=== PATIENT | female | born 1955 | race Caucasian/White ===

== ENCOUNTER → 2020-10-01 12:29 | Outpatient (BNVA) | payer MEDICARE, SELFPAY | PROVIDERS: PCP Internal Medicine; Visit Provider Internal Medicine | DX: I48.0 Paroxysmal atrial fibrillation (principal); E78.5 Hyperlipidemia, unspecified; Z51.81 Encounter for therapeutic drug level monitoring; Z79.899 Other long term (current) drug therapy | CPT/HCPCS: 93005; 99212 ==

== ENCOUNTER → 2020-12-16 14:04 | Outpatient (BNVA) | payer MEDICARE, SELFPAY | PROVIDERS: PCP Internal Medicine; Referring Provider Internal Medicine; Visit Provider Nurse Practitioner Family | DX: R07.89 Other chest pain (principal); R94.31 Abnormal electrocardiogram [ECG] [EKG]; I48.0 Paroxysmal atrial fibrillation; Z51.81 Encounter for therapeutic drug level monitoring; Z79.899 Other long term (current) drug therapy | CPT/HCPCS: 93005; 99212 ==

== ENCOUNTER 2021-01-31 10:08 | Observation (INO) | payer MEDICARE, SELFPAY ==
--- NOTE | ~2021-01-31 | XR_ITS ---
EXAMINATION: XR CHEST CLINICAL INFORMATION: Chest pain. COMPARISON: 02/24/2014. TECHNIQUE: Frontal view of the chest was obtained. FINDINGS: Mild linear markings and opacification are seen at the left lung base with minimal blunting of the left costophrenic angle. The left upper lung field and right lung are clear. The heart and mediastinal structures are unremarkable. XR/XR chest 1V IMPRESSION: Possible mild left basilar atelectasis and/or very small left pleural effusion.
--- NOTE | 2021-01-31 10:13 | ECG_ITS ---
Test Reason : CP Blood Pressure : / mmHG Vent. Rate : 068 BPM Atrial Rate : 068 BPM P-R Int : 148 ms QRS Dur : 092 ms QT Int : 422 ms P-R-T Axes : 044 234 039 degrees QTc Int : 448 ms Normal sinus rhythm Right superior axis deviation Pulmonary disease pattern Low voltage QRS Poor R wave progression Abnormal ECG Heart rate has increased T wave inversion more evident in Anteroseptal leads Referred By: Josue Robles Electronically Signed By:MINDI RANDLE MD
[2021-01-31 10:19] VITALS: BP 147/80; BP 202/164; PULSE 60; PULSE 69; RESP 18; TEMP 36.8; O2SAT 93; O2SAT 96; BMI 32.8
--- NOTE | 2021-01-31 10:27 | ED.CHESTPAIN ---
HPI - Chest Pain General Chief Complaint: Chest Pain Stated Complaint: chest pain radiating to left arm/neck Time Seen by Provider: 01/31/21 10:13 History of Present Illness HPI narrative: Patient is a 65-year-old female with a history of paroxysmal AFib. Currently not on any anticoagulation. Presents today with having chest pain that started approximately 1 hour prior. Positive chest pain that is a tightness radiating to the neck. Positive shortness of breath no diaphoresis. The pain subsided after some nitroglycerin. Patient was given aspirin on the ambulance. No fever no chills minimal coughing. Patient is vaccinated for COVID. Positive history of hypertension high cholesterol. Question history of [place]. No history of smoking. No family history of CAD. Related Data Home Medications Medication Instructions Recorded Confirmed aspirin 81 mg tablet,delayed 81 mg PO DAILY 10/01/20 01/31/21 release citalopram 40 mg tablet 40 mg PO DAILY 10/01/20 01/31/21 docusate sodium 100 mg capsule 100 mg PO DAILY 10/01/20 01/31/21 lamotrigine 100 mg tablet 250 mg PO BEDTIME 10/01/20 01/31/21 latanoprost 0.005 % eye drops 1 drp OPHTHALMIC (EYE) BEDTIME 10/01/20 01/31/21 naproxen 500 mg tablet 500 mg PO BEDTIME 10/01/20 01/31/21 trazodone 100 mg tablet 100 - 200 mg PO BEDTIME PRN 10/01/20 01/31/21 hydroxyzine HCl 25 mg tablet 12.5 - 25 mg PO DAILY PRN 12/16/20 01/31/21 Previous Rx's Medication Instructions Recorded flecainide 100 mg tablet 100 mg PO BID #180 tab 10/01/20 atorvastatin 80 mg tablet 80 mg PO DAILY 90 Days #90 tab 11/06/20 Allergies Allergy/AdvReac Type Severity Reaction Status Date / Time oxycodone [From PERCODAN] Allergy Intermediate HIVES Verified 01/31/21 10:19 Hydrocodone-Acetaminophen AdvReac Unknown nausea and Uncoded 10/01/20 12:36 vomiting Review of Systems Review of Systems: Positive chest pain Positive coughing congested No vomiting Positive shortness of breath Yes all other systems are reviewed and are negative PMFSH Past Medical History Medical History PAF (paroxysmal atrial fibrillation) Surgical History History of knee surgery Family History Family History Father Myocardial infarction CVD (cardiovascular disease) Mother No problems noted. Social History Social History Alcohol intake: current Alcohol intake frequency: a few times a month Patient Tobacco Use Status: Never used Tobacco Use of substances other than those prescribed or required for medical reasons: No Advance Directives: No Advance Directives Information Provided: No Patient : No Physical Exam Vital Signs: Vital Signs: Last Vital Signs Temp 98.3 F 01/31/21 13:29 Pulse 66 01/31/21 13:29 Resp 18 01/31/21 13:29 BP 132/78 01/31/21 13:29 Pulse Ox 96 01/31/21 13:29 Body Mass Index 32.8 Appearance: Alert. Oriented X3. No acute distress. Eyes: Pupils equal, round and reactive to light. ENT: Pharynx normal. Neck: Normal inspection. Neck supple. No lymph nodes noted. No crepitus CVS: Normal heart rate and rhythm. Pulses normal. Normal S1 and S2 Respiratory: No respiratory distress. Breath sounds normal. No Wheezing. No rales Abdomen: Soft and nontender. No rigidity. No distention. good BS x4 Skin: Skin warm and dry. Normal skin color. Normal skin turgor. Extremities: No lower extremity edema. Neurovascular intact to all extremities. No Lacerations. No Rash Neuro: Oriented X 3. No motor deficit. No sensory deficit. Moving all extermities. No slurred speech MDM - Chest Pain MDM Narrative Medical decision making narrative: Sinus pattern heart rate is 70 TN QRS QT within normal limits there is nonspecific T-wave flattening diffusely noted. Positive chest pain resolved with nitroglycerin 2 sets of cardiac enzymes were negative. Patient's case discussed with cardiology. Will admit for further observation. Patient did have a echo done last year which was grossly negative for any acute evidence of wall motion defect. Perfusion study was negative at that time. However given patient's chest pain resolved with nitroglycerin associated with shortness of breath will admit for observation overnight. Case discussed with hospitalist and also with Cardiology Lab Data Result diagrams: 01/31/21 10:47 01/31/21 10:47 Labs: Lab Results 01/31/21 01/31/21 01/31/21 Range/Units 10:47 10:47 10:47 WBC 4.6 L (4.8-10.8) X10*3/uL RBC 4.30 (4.20-5.50) X10*6/uL Hgb 13.7 (12.0-16.0) g/dl Hct 41.1 (37.0-47.0) % MCV 95.6 (80.0-98.0) fL MCH 31.9 (27.0-33.0) pg MCHC 33.3 (31.0-35.0) g/dl RDW 12.7 (11.0-16.0) % Plt Count 183 (160-400) X10*3/uL MPV 9.4 (9.4-12.3) fL Immature Gran % (Auto) 0.2 (0.0-0.4) % Neut % (Auto) 67.2 (45-73) % Lymph % (Auto) 20.6 (20-40) % Lipscomb % (Auto) 5.6 (2-11) % Eos % (Auto) 5.8 H (0-4) % Baso % (Auto) 0.6 (0-2) % Lymph # (Auto) 1.0 L (1.2-4.9) X10*3/uL Lipscomb # (Auto) 0.3 (0.1-1.2) X10*3/uL Eos # (Auto) 0.3 (0.0-0.4) X10*3/uL Baso # (Auto) 0.0 (0.0-0.2) X10*3/uL Abs Immat Gran (auto) 0.01 (0.00-0.03) X10*3/uL Absolute Neuts (auto) 3.1 (2.0-8.3) x10*3/uL Absolute Nucleated RBC 0.000 (0.0-0.012) X10*3/uL Nucleated RBC % (auto) 0.0 (0.0-0.2) /100WBC Sodium 143 (135-145) mmol/L Potassium 3.9 (3.3-5.1) mmol/L Chloride 105 (96-108) mmol/L Carbon Dioxide 31 H (22-29) mmol/L Anion Gap 11 L (12-20) BUN 11 (9-16) mg/dL Creatinine 0.77 (0.5-1.4) mg/dL Estim Creat Clear Calc 90.2 Estimated GFR > 60 Random Glucose 131 H (60-115) mg/dL Calcium 9.4 (8.4-10.2) mg/dL Total Bilirubin 0.4 (0.0-1.0) mg/dL AST 24 (5-31) U/L ALT 37 H (0-31) U/L Alkaline Phosphatase 90 (39-117) U/L Troponin I High Sens < 3.5 (<3.5-17.0) ng/L Total Protein 6.8 (6.5-8.0) g/dL Albumin 4.1 (3.5-5.0) g/dL COVID-19 (RENAN) (Negative) COVID-19 Clin Com 01/31/21 01/31/21 Range/Units 10:47 12:44 WBC (4.8-10.8) X10*3/uL RBC (4.20-5.50) X10*6/uL Hgb (12.0-16.0) g/dl Hct (37.0-47.0) % MCV (80.0-98.0) fL MCH (27.0-33.0) pg MCHC (31.0-35.0) g/dl RDW (11.0-16.0) % Plt Count (160-400) X10*3/uL MPV (9.4-12.3) fL Immature Gran % (Auto) (0.0-0.4) % Neut % (Auto) (45-73) % Lymph % (Auto) (20-40) % Lipscomb % (Auto) (2-11) % Eos % (Auto) (0-4) % Baso % (Auto) (0-2) % Lymph # (Auto) (1.2-4.9) X10*3/uL Lipscomb # (Auto) (0.1-1.2) X10*3/uL Eos # (Auto) (0.0-0.4) X10*3/uL Baso # (Auto) (0.0-0.2) X10*3/uL Abs Immat Gran (auto) (0.00-0.03) X10*3/uL Absolute Neuts (auto) (2.0-8.3) x10*3/uL Absolute Nucleated RBC (0.0-0.012) X10*3/uL Nucleated RBC % (auto) (0.0-0.2) /100WBC Sodium (135-145) mmol/L Potassium (3.3-5.1) mmol/L Chloride (96-108) mmol/L Carbon Dioxide (22-29) mmol/L Anion Gap (12-20) BUN (9-16) mg/dL Creatinine (0.5-1.4) mg/dL Estim Creat Clear Calc Estimated GFR Random Glucose (60-115) mg/dL Calcium (8.4-10.2) mg/dL Total Bilirubin (0.0-1.0) mg/dL AST (5-31) U/L ALT (0-31) U/L Alkaline Phosphatase (39-117) U/L Troponin I High Sens < 3.5 (<3.5-17.0) ng/L Total Protein (6.5-8.0) g/dL Albumin (3.5-5.0) g/dL COVID-19 (RENAN) Negative (Negative) COVID-19 Clin Com See Note Discharge Plan Discharge Clinical Impression: Chest discomfort, Chest pain Patient Disposition: Admitted As Inpatient Prescriptions: No Action atorvastatin 80 mg tablet 80 mg PO DAILY 90 Days Qty: 90 RF: 3 citalopram 40 mg tablet 40 mg PO DAILY RF: 0 lamotrigine 100 mg tablet 250 mg PO BEDTIME RF: 0 docusate sodium 100 mg capsule 100 mg PO DAILY RF: 0 naproxen 500 mg tablet 500 mg PO BEDTIME RF: 0 latanoprost 0.005 % drops 1 drp ophthalmic (eye) BEDTIME RF: 0 trazodone 100 mg tablet 100 - 200 mg PO BEDTIME PRN (Reason: Sleep) RF: 0 aspirin 81 mg tablet,delayed release (DR/EC) 81 mg PO DAILY RF: 0 flecainide 100 mg tablet 100 mg PO BID Qty: 180 RF: 4 hydroxyzine HCl 25 mg tablet 12.5 - 25 mg PO DAILY PRN (Reason: Anxiety) RF: 0
[2021-01-31 10:52] LABS: MANUAL DIFF FLAG NO
[2021-01-31 10:57] LABS: Basophils Percent Auto 0.6 % (0-2); Eosinophils Absolute Auto 0.3 X10*3/uL (0.0-0.4); Eosinophils Percent Auto 5.8 % (0-4); Hematocrit 41.1 % (37.0-47.0); Hemoglobin 13.7 g/dl (12.0-16.0); Imm Gran Abs Auto 0.01 X10*3/uL (0.00-0.03); Imm Gran Pct Auto 0.2 % (0.0-0.4); Lymphocytes Percent Auto 20.6 % (20-40); Mean Corpuscular HGB Conc 33.3 g/dl (31.0-35.0); Mean Corpuscular Hemoglobin 31.9 pg (27.0-33.0); Mean Corpuscular Volume 95.6 fL (80.0-98.0); Mean Platelet Volume 9.4 fL (9.4-12.3); Monocytes Absolute Auto 0.3 X10*3/uL (0.1-1.2); Monocytes Percent Auto 5.6 % (2-11); Neutrophils Absolute Auto 3.1 x10*3/uL (2.0-8.3); Neutrophils Percent Auto 67.2 % (45-73); Platelet Count 183 X10*3/uL (160-400); Red Cell Distribution Width 12.7 % (11.0-16.0); White Blood Count 4.6 X10*3/uL (4.8-10.8)
[2021-01-31 11:08] LABS: COVID-19 Test Negative (Negative)
[2021-01-31 11:13] LABS: Troponin-I High Sensitivity < 3.5 ng/L (<3.5-17.0)
[2021-01-31 11:18] LABS: Alanine Aminotransferase 37 U/L (0-31); Albumin Level 4.1 g/dL (3.5-5.0); Alkaline Phosphatase 90 U/L (39-117); Anion Gap 11 (12-20); Aspartate Amino Transferase 24 U/L (5-31); Bilirubin Total 0.4 mg/dL (0.0-1.0); Blood Urea Nitrogen 11 mg/dL (9-16); Calcium 9.4 mg/dL (8.4-10.2); Carbon Dioxide 31 mmol/L (22-29); Chloride 105 mmol/L (96-108); Creatinine Clr Calc Pharmacy 90.2; Estimated Glomerular Filt Rate > 60; Glucose Random 131 mg/dL (60-115); Potassium 3.9 mmol/L (3.3-5.1); Sodium 143 mmol/L (135-145); Total Protein 6.8 g/dL (6.5-8.0)
--- NOTE | 2021-01-31 11:21 | PC.NURSE ---
Pt remains NSR on monitor. Denies CP at this time. Ambulatory to BR w/o difficulty/dizzziness/SOB. aware of need for repeat troponin
[2021-01-31 11:22] VITALS: BP 131/77; PULSE 68; RESP 16; O2SAT 97
[2021-01-31 13:24] LABS: Troponin-I High Sensitivity < 3.5 ng/L (<3.5-17.0)
[2021-01-31 13:29] VITALS: BP 132/78; PULSE 66; RESP 18; TEMP 36.8; O2SAT 96
--- NOTE | 2021-01-31 15:12 | PM.IMHP ---
History of Present Illness Date of Service: 01/31/21 65-year-old female with history of paroxysmal atrial fibrillation presents after 1 hour of retrosternal chest pain. She had mild shortness of breath accompanied by this but no diaphoresis. She was given some nitroglycerin that relieved her pain and ambulance aspirin. Initial 2 troponins are negative however she will be admitted observation with cardiac consult in the morning Review of Systems Review of Systems: Currently denies chest pain Denies shortness of breath Denies nausea vomiting diarrhea PMFSH Medical History PAF (paroxysmal atrial fibrillation) Family History Father Myocardial infarction CVD (cardiovascular disease) Mother No problems noted. Surgical History History of knee surgery Social History Alcohol intake: current Alcohol intake frequency: a few times a month Patient Tobacco Use Status: Never used Tobacco Use of substances other than those prescribed or required for medical reasons: No Advance Directives: No Advance Directives Information Provided: No Patient : No Meds Allergies Allergy/AdvReac Type Severity Reaction Status Date / Time oxycodone [From PERCODAN] Allergy Intermediate HIVES Verified 01/31/21 10:19 Hydrocodone-Acetaminophen AdvReac Unknown nausea and Uncoded 10/01/20 12:36 vomiting Active Medications: Current Medications Aspirin (Aspirin Enteric Coated 81 Mg Tablet.Dr) 81 mg PO DAILY COUNTS INCLUDE 234 BEDS AT THE [facility] Atorvastatin Calcium (Atorvastatin Calcium 80 Mg Tablet) 80 mg PO DAILY COUNTS INCLUDE 234 BEDS AT THE [facility] Docusate Sodium (Docusate Sodium 100 Mg Capsule) 100 mg PO DAILY COUNTS INCLUDE 234 BEDS AT THE [facility] Hydroxyzine HCl (Hydroxyzine Hcl 25 Mg Tablet) 12.5 - 25 mg PO DAILY PRN PRN Reason: Anxiety Lamotrigine (Lamotrigine 25 Mg Tablet) 250 mg PO BEDTIME COUNTS INCLUDE 234 BEDS AT THE [facility] Latanoprost (Latanoprost 0.005 % Ophth Milvia 2.5 Ml Drops) 1 drop EYE-BOTH BEDTIME COUNTS INCLUDE 234 BEDS AT THE [facility] Naproxen (Naproxen 500 Mg Tablet) 500 mg PO BEDTIME COUNTS INCLUDE 234 BEDS AT THE [facility] Non-Formulary Medication (Citalopram) 40 mg PO DAILY COUNTS INCLUDE 234 BEDS AT THE [facility] Non-Formulary Medication (Flecainide) 100 mg PO BID COUNTS INCLUDE 234 BEDS AT THE [facility] Pharmacy Consult (Consult Rx Perform Med Rec) 1 each MISCELLANE ONCE PRN PRN Reason: Consult order Trazodone HCl (Trazodone Hcl 100 Mg Tablet) 100 mg PO BEDTIME PRN PRN Reason: Sleep Home Medications Medication Instructions Recorded Confirmed Last Taken Type aspirin 81 mg tablet,delayed 81 mg PO DAILY 10/01/20 01/31/21 01/30/21 History release citalopram 40 mg tablet 40 mg PO DAILY 10/01/20 01/31/21 01/30/21 History docusate sodium 100 mg capsule 100 mg PO DAILY 10/01/20 01/31/21 01/30/21 History lamotrigine 100 mg tablet 250 mg PO BEDTIME 10/01/20 01/31/21 01/30/21 History latanoprost 0.005 % eye drops 1 drp OPHTHALMIC (EYE) BEDTIME 10/01/20 01/31/21 01/30/21 History naproxen 500 mg tablet 500 mg PO BEDTIME 10/01/20 01/31/21 01/30/21 History trazodone 100 mg tablet 100 - 200 mg PO BEDTIME PRN 10/01/20 01/31/21 01/30/21 History hydroxyzine HCl 25 mg tablet 12.5 - 25 mg PO DAILY PRN 12/16/20 01/31/21 01/30/21 History Physical Exam Vital Signs and Narrative: Vital Signs: Last Vital Signs Temp 98.3 F 01/31/21 13:29 Pulse 66 01/31/21 13:29 Resp 18 01/31/21 13:29 BP 132/78 01/31/21 13:29 Pulse Ox 96 01/31/21 13:29 Body Mass Index 32.8 Const: Other: Awake alert oriented x3 no acute distress Resp: Other: Clear to auscultation bilaterally no rales rhonchi or wheezes Cardio: Other: No S4; positive S1-S2; no S3 murmurs of gallops GI: Other: Soft nontender nondistended with normoactive bowel sounds Neuro: Other: Cranial nerves 2-12 grossly intact as tested. Motor is 5/5 all extremities sensation intact. Cognition appropriate Extrem: Other: No edema bilaterally Results Labs CBC and Chem 7: 01/31/21 10:47 01/31/21 10:47 Labs: Laboratory Results - last 24 hr 01/31/21 01/31/21 01/31/21 10:47 10:47 10:47 MCV 95.6 MCH 31.9 MCHC 33.3 RDW 12.7 Plt Count 183 MPV 9.4 Immature Gran % (Auto) 0.2 Neut % (Auto) 67.2 Lymph % (Auto) 20.6 Rich % (Auto) 5.6 Eos % (Auto) 5.8 H Baso % (Auto) 0.6 Lymph # (Auto) 1.0 L Rich # (Auto) 0.3 Eos # (Auto) 0.3 Baso # (Auto) 0.0 Abs Immat Gran (auto) 0.01 Absolute Neuts (auto) 3.1 Absolute Nucleated RBC 0.000 Nucleated RBC % (auto) 0.0 Anion Gap 11 L Estim Creat Clear Calc 90.2 Estimated GFR > 60 Random Glucose 131 H Calcium 9.4 Total Bilirubin 0.4 AST 24 ALT 37 H Alkaline Phosphatase 90 Troponin I High Sens < 3.5 Total Protein 6.8 Albumin 4.1 COVID-19 (RENAN) COVID-19 Clin Com 01/31/21 01/31/21 10:47 12:44 MCV MCH MCHC RDW Plt Count MPV Immature Gran % (Auto) Neut % (Auto) Lymph % (Auto) Rich % (Auto) Eos % (Auto) Baso % (Auto) Lymph # (Auto) Rich # (Auto) Eos # (Auto) Baso # (Auto) Abs Immat Gran (auto) Absolute Neuts (auto) Absolute Nucleated RBC Nucleated RBC % (auto) Anion Gap Estim Creat Clear Calc Estimated GFR Random Glucose Calcium Total Bilirubin AST ALT Alkaline Phosphatase Troponin I High Sens < 3.5 Total Protein Albumin COVID-19 (RENAN) Negative COVID-19 Clin Com See Note Imaging Radiologist's Impressions: Impressions Chest X-Ray 01/31/21 10:18 IMPRESSION: Possible mild left basilar atelectasis and/or very small left pleural effusion. Assessment and Plan (1) Chest pain: Status: Acute 65-year-old female with known history of paroxysmal atrial fibrillation presents with 1 hour chest pain relieved by nitro. Enzymes flat and ER EKG unremarkable. ER MD discussed with cardiology who will see in the a.m. 1. Paroxysmal atrial fibrillation Continue aspirin as ordered. No other therapies indicated at this time Consult to Cardiology will see me a 2. Mood disorder Continue citalopram and Lamictal at outpatient dosing. Trazodone at HS for sleep Will continue hydroxyzine for p.r.n. anxiety 3. Hyperlipidemia Continue statin, check LFTs and lipid panel in a.m. Full code/Lovenox Quality Stroke Does the patient have a stroke diagnosis?: No VTE Prior VTE?: No VTE Risk Level:: Medical - moderate - high VTE Device Contraindication: Treatment Not Indicated VTE Drug Contraindication: N/A - Med Ordered
[2021-01-31 16:54] VITALS: BP 130/56; PULSE 64; RESP 18; O2SAT 98
[2021-01-31] MEDS: Enoxaparin Sodium 40 MG/0.4 ML SYRINGE SUBCUT (18:21)
[2021-01-31] MEDS: NaPROXEN 500 MG TABLET PO (22:04)
[2021-01-31] MEDS: lamoTRIgine 100 MG TABLET 250 MG PO (22:04)
[2021-01-31 22:05] VITALS: BP 120/66; PULSE 65
[2021-01-31] MEDS: Flecainide Acetate 50 MG TABLET 100 MG PO (22:05)
[2021-01-31 23:54] VITALS: BMI 32.4
[2021-02-01] VITALS: BP 158/82; PULSE 64; RESP 16; TEMP 36.6; O2SAT 97
[2021-02-01] MEDS: 0.9 % Sodium Chloride Flush 3 ML SYRINGE IVFLUSH ×2 (00:13→09:26)
[2021-02-01] MEDS: traZODone HCL 100 MG TABLET PO (00:23)
[2021-02-01 04:00] VITALS: BP 136/64; PULSE 71; RESP 18; TEMP 36.9; O2SAT 93
[2021-02-01 06:40] LABS: MANUAL DIFF FLAG NO
[2021-02-01 06:55] LABS: Basophils Percent Auto 0.4 % (0-2); Eosinophils Absolute Auto 0.3 X10*3/uL (0.0-0.4); Eosinophils Percent Auto 5.6 % (0-4); Hematocrit 39.8 % (37.0-47.0); Hemoglobin 12.9 g/dl (12.0-16.0); Imm Gran Abs Auto 0.01 X10*3/uL (0.00-0.03); Imm Gran Pct Auto 0.2 % (0.0-0.4); Lymphocytes Absolute Auto 1.6 X10*3/uL (1.2-4.9); Lymphocytes Percent Auto 29.6 % (20-40); Mean Corpuscular HGB Conc 32.4 g/dl (31.0-35.0); Mean Corpuscular Hemoglobin 30.6 pg (27.0-33.0); Mean Corpuscular Volume 94.3 fL (80.0-98.0); Mean Platelet Volume 9.9 fL (9.4-12.3); Monocytes Absolute Auto 0.4 X10*3/uL (0.1-1.2); Monocytes Percent Auto 8.1 % (2-11); Neutrophils Percent Auto 56.1 % (45-73); Platelet Count 192 X10*3/uL (160-400); Red Blood Count 4.22 X10*6/uL (4.20-5.50); Red Cell Distribution Width 12.7 % (11.0-16.0); White Blood Count 5.3 X10*3/uL (4.8-10.8)
[2021-02-01 07:19] LABS: Anion Gap 12 (12-20); Blood Urea Nitrogen 13 mg/dL (9-16); Calcium 9.3 mg/dL (8.4-10.2); Carbon Dioxide 31 mmol/L (22-29); Chloride 104 mmol/L (96-108); Creatinine Clr Calc Pharmacy 84.3; Estimated Glomerular Filt Rate > 60; Glucose Random 84 mg/dL (60-115); Potassium 4.4 mmol/L (3.3-5.1); Sodium 143 mmol/L (135-145)
[2021-02-01 07:39] VITALS: BP 134/76; PULSE 70; RESP 18; TEMP 36.6; O2SAT 93
[2021-02-01] MEDS: Escitalopram Oxalate 20 MG TABLET PO (09:25)
[2021-02-01] MEDS: Atorvastatin Calcium 80 MG TABLET PO (09:25)
[2021-02-01] MEDS: Flecainide Acetate 50 MG TABLET 100 MG PO (09:26)
[2021-02-01] MEDS: Docusate Sodium 100 MG CAPSULE PO (09:26)
[2021-02-01] MEDS: Aspirin Enteric Coated 81 MG TABLET.DR PO (09:26)
--- NOTE | 2021-02-01 09:51 | CA_ITS ---
Transthoracic Echocardiogram Patient (Last, First, Middle): Rowena Velasquez, Gender: Female Date of : 1955 Age: 65 Procedure Date: 02/01/2021 Procedure Type: Transthoracic Echocardiogram Location: S3E Height: 172.72 cm Weight: 96.62 kg BSA: 2.10 m2 Heart Rate: bpm BP: 134 / 76 mmHg Analytical Chemist: TOBI Referring MD: Vladimir Manley MD Symptoms: SOB Study Quality: Fair ECG Rhythm: Sinus Conclusions: - The left ventricular systolic function is normal. The calculated ejection fraction is 59% by biplane method. - There is mild calcification of the aortic valve. - No obvious valvular pathology seen on this study. Findings Left Ventricle Normal left ventricular cavity size. There is normal left ventricular wall thickness. The left ventricular systolic function is normal. The calculated ejection fraction is 59% by biplane method. There is no evidence of regional wall motion abnormalities. Diastolic function is normal for age. Right Ventricle Normal right ventricular cavity size and systolic function. Atria Both atria are normal in size. Aortic Valve There is mild calcification of the aortic valve. There is no aortic valve stenosis. There is no aortic valve regurgitation. Mitral Valve The mitral valve appears normal. There is trace mitral valve regurgitation. There is no mitral valve stenosis. Pulmonic Valve The pulmonic valve was not well visualized. Tricuspid Valve Normal tricuspid valve structure. There is trace tricuspid valve regurgitation. The pulmonary artery systolic pressure is normal. Great Vessels The aortic annulus, sinuses of valsalva, and asc aorta are normal in size. Venous The inferior vena cava is normal in size and collapses greater than 50% with inspiration. Pericardium/Pleural There is no evidence of pericardial effusion. Prior Study Comparison No significant change compared to prior study dated: 07/09/2014. Recommendations, Care & Conclusions No obvious valvular pathology seen on this study. Measurements 2D Linear Measurements IVSd: 1.04 0.6-0.9/0.6-1.0 cm LVIDd: 4.34 3.9-5.3/4.2-5.9 cm LVIDd Index: 2.07 2.4-3.2/2.2-3.1 cm/m2 LVIDs: 2.56 2.0-3.6 cm LVPWd: 0.87 0.7-1.1 cm Ao Root: 3.30 2.1-3.5 cm LA Diam: 3.80 2.7-3.8/3.0-4.0 cm LAIDs Index: 1.81 1.5-2.3 cm/m2 LV Mass: 169.01 67-162/88-224 g LV Mass Index: 80.48 43-95/49-115 g/m2 LVOT Diam: 2.00 3.0+(-)1.3 cm 2D Systolic Function EF 4C: 58.00 >55% EF 2C: 59.50 >55% EF BiP: 58.80 >55% Mitral Valve MV Pk E: 0.63 MV PK A: 0.41 MV Decel Time: 323.00 E/A: 1.50 E'Lateral: 7.83 E'Medial: 5.98 E/E' Med: 10.60 E/E' Lat: 8.10 PHT: 94.00 MVA PHT: 2.34 Decel [place]: 1.97 Aortic Valve AoV Pk Xander: 1.59 AoV Mn Xander: 1.11 AoV VTI: 0.30 AoV Pk Grad: 10.00 Aov Mn Grad: 5.00 CHHAYA Cont.VTI: 2.74 LVOT LVOT Pk Xander: 1.36 LVOT Mn Xander: 0.93 LVOT VTI: 0.26 LVOT Pk Grad: 7.00 LVOT Mn Grad: 4.00 LVOT Diam: 2.00 LVOT Area: 3.14 Diastolic Function MV Pk E: 0.63 MV Pk A: 0.41 E/A: 1.50 E'Medial: 5.98 E/E' Med: 10.60 E' Laterial: 7.83 E/E' Lat: 8.10 Right Ventricle TAPSE (mm): 2.86 TVS' Xander: 11.10 Tricuspid Valve TR Pk Xander: 1.87 TR Pk Grad: 14.00 RA Press: 3.00 RVSP: 17.00 Great Vessels Aorta Ao Root-2D: 3.30 2.0-3.7 cm Ao Asc: 3.00 2.1-3.4 cm Ao Arch: 3.00 Updated in Other Vendor System with Status of Final Vladimir Manley MD electronically signed on 02/01/2021 1:44:48 PM with status of Final
--- NOTE | 2021-02-01 10:10 | MHC.CM.PN ---
ADRIEN 02/01/21, EMR REVIEWED, PT ADMITTED W/CHEST PAIN/DISCOMFORT, CM MET W/PT WHO REPORTS SHE LIVES W//DTR/GDTR, PT IS INDEPENDENT W/CARE, NO DME AND NO HOME SERVICES, PT REPORTS HER PSP RETIRED AND HAS A NEW [place] DOCTOR WAS GIVEN A NEW ONE SHE HAS NOT SEEN, PT WANTED TO CHANGE TO [facility], CM DID CONTACT [facility] HOWEVER THEY DO NOT TAKE [employer] MEDICARE HMO PLANS, CM HAS INFORMED PT, PT HAS GIVEN CM HCP INFO AND COPY HAS BEEN REQUESTED. D/C PLAN: HOME SELF-CARE, FAMILY FOR TRANSPORT HEALTH CARE AGENT: PAOLO DOMINIQUE [phone] ALTERNATE: EDITA DOMINIQUE [phone]
--- NOTE | 2021-02-01 10:44 | PM.CNCAR ---
History of Present Illness History of Present Illness Date of Service: 02/01/21 Chief complaint: chest pain Narrative: This is a cardiology consultation regarding chest pain. Patient is well known to us for many years. She has history of proximal atrial fibrillation for which she underwent ablation many years ago. She has had essentially sinus rhythm since that time. She is maintained on Flecainide but not on anticoagulation. Few weeks ago, she had chest pain episode leading to hospitalization at [facility]. Workup there was unremarkable and she was discharged. In the interim, she was seen in the office and we will arrange her to have a coronary CTA which is still pending. She states that she had an episode of chest discomfort which he felt like a pressure in the left chest radiating down the shoulder and to the neck but not exertion. That led to this admission. Apparently when EMS checked her blood pressures, it was almost in the 200s. However she is not known to have any hypertension and hospital blood pressures are once again much lower than what she describes. Today she is pain free. Otherwise, she states that she does have some chronic shortness of breath but recently she is noticing this to be much worse than her usual. Review of Systems Review of Systems: Yes all other systems are reviewed and are negative Cardiovascular: Cardiovascular: Reports as per HPI, Reports no additional cardiovascular complaints, Denies acrocyanosis, Denies cool extremities, Denies painful fingertips, Denies chest pain, Denies chest pain at rest, Denies diaphoresis, Denies syncope, Denies irregular heart rhythm, Denies claudication, Denies leg edema, Denies lightheadedness, Denies palpitations and Reports dyspnea Respiratory: Respiratory: Reports dyspnea Neurologic: Denies syncope Endocrine: Endocrine: Denies palpitations [facility] Past Medical History Medical History PAF (paroxysmal atrial fibrillation) Family History Family History Father Myocardial infarction CVD (cardiovascular disease) Mother No problems noted. Surgical History Surgical History History of knee surgery Social History Social History Household Members: Spouse and Family Housing: House Do you presently have visiting nurse or other home services: No Alcohol intake: current Alcohol intake frequency: a few times a month Patient Tobacco Use Status: Never used Tobacco Use of substances other than those prescribed or required for medical reasons: No Currently Displaying Signs/Symptoms of Drug Intoxication Withdrawal: No Have you been hit, kicked, punched, or otherwise hurt by someone within the past year? If so, by whom?: No Do you feel safe in your current relationship?: Yes Is there a partner from a previous relationship who is making you feel unsafe now?: No Are you made to feel afraid or neglected: No Advance Directives: No Advance Directives Information Provided: No Do you have thoughts of harming others: None Do you have a plan to hurt others: No Plan Recently lost weight without trying: No Nutrition Risks: No Nutritional Risk Patient : No : No Poor oral hygiene: No service: No Current occupational status: retired [employer] Allergies Allergy/AdvReac Type Severity Reaction Status Date / Time oxycodone [From PERCODAN] Allergy Intermediate HIVES Verified 01/31/21 10:19 Hydrocodone-Acetaminophen AdvReac Unknown nausea and Uncoded 10/01/20 12:36 vomiting Active Medications: Current Medications Acetaminophen (Acetaminophen 325 Mg Tablet) 650 mg PO Q6H PRN PRN Reason: Pain, Mild (Pain Scale 1-3) Aspirin (Aspirin Enteric Coated 81 Mg Tablet.) 81 mg PO DAILY [facility] Last Admin: 02/01/21 09:26 Dose: 81 mg Documented by: Atorvastatin Calcium (Atorvastatin Calcium 80 Mg Tablet) 80 mg PO DAILY [facility] Last Admin: 02/01/21 09:25 Dose: 80 mg Documented by: Docusate Sodium (Docusate Sodium 100 Mg Capsule) 100 mg PO DAILY [facility] Last Admin: 02/01/21 09:26 Dose: 100 mg Documented by: Enoxaparin Sodium (Enoxaparin Sodium 40 Mg/0.4 Ml Syringe) 40 mg SUBCUT Q24H [facility] Last Admin: 01/31/21 18:21 Dose: 40 mg Documented by: Escitalopram Oxalate (Escitalopram Oxalate 20 Mg Tablet) 20 mg PO DAILY [facility] Last Admin: 02/01/21 09:25 Dose: 20 mg Documented by: Flecainide Acetate (Flecainide Acetate 50 Mg Tablet) 100 mg PO BID [facility] Last Admin: 02/01/21 09:26 Dose: 100 mg Documented by: Hydroxyzine HCl (Hydroxyzine Hcl 25 Mg Tablet) 12.5 - 25 mg PO DAILY PRN PRN Reason: Anxiety Lamotrigine (Lamotrigine 100 Mg Tablet) 250 mg PO BEDTIME [facility] Last Admin: 01/31/21 22:04 Dose: 250 mg Documented by: Latanoprost (Latanoprost 0.005 % Ophth Milvia 2.5 Ml Drops) 1 drop EYE-BOTH BEDTIME [facility] Last Admin: 01/31/21 23:53 Dose: Not Given Documented by: Naproxen (Naproxen 500 Mg Tablet) 500 mg PO BEDTIME [facility] Last Admin: 01/31/21 22:04 Dose: 500 mg Documented by: Nitroglycerin (Nitroglycerin 0.4 Mg Tab.Subl) 0.4 mg SUBLINGUAL Q5MX3 PRN PRN Reason: Chest Pain Pharmacy Consult (Consult Rx Perform Med Rec) 1 each MISCELLANE ONCE PRN PRN Reason: Consult order Sodium Chloride (0.9 % Sodium Chloride Flush 3 Ml Syringe) 3 ml IVFLUSH [facility] Last Admin: 02/01/21 09:26 Dose: 3 ml Documented by: Trazodone HCl (Trazodone Hcl 100 Mg Tablet) 100 mg PO BEDTIME PRN PRN Reason: Sleep Last Admin: 02/01/21 00:23 Dose: 100 mg Documented by: Home Medications Medication Instructions Recorded Confirmed Last Taken Type aspirin 81 mg tablet,delayed 81 mg PO DAILY 10/01/20 01/31/21 01/30/21 History release citalopram 40 mg tablet 40 mg PO DAILY 10/01/20 01/31/21 01/30/21 History docusate sodium 100 mg capsule 100 mg PO DAILY 10/01/20 01/31/21 01/30/21 History lamotrigine 100 mg tablet 250 mg PO BEDTIME 10/01/20 01/31/21 01/30/21 History latanoprost 0.005 % eye drops 1 drp OPHTHALMIC (EYE) BEDTIME 10/01/20 01/31/21 01/30/21 History naproxen 500 mg tablet 500 mg PO BEDTIME 10/01/20 01/31/21 01/30/21 History trazodone 100 mg tablet 100 - 200 mg PO BEDTIME PRN 10/01/20 01/31/21 01/30/21 History hydroxyzine HCl 25 mg tablet 12.5 - 25 mg PO DAILY PRN 12/16/20 01/31/21 01/30/21 History Physical Exam Vital Signs: Vital Signs: Last Vital Signs Temp 97.9 F 02/01/21 07:39 Pulse 70 02/01/21 07:39 Resp 18 02/01/21 07:39 BP 134/76 02/01/21 07:39 Pulse Ox 93 02/01/21 07:39 Body Mass Index 32.4 Const: General: cooperative and no acute distress HENMT: Other: Unremarkable Neck: Neck: Yes normal visual inspection Chest: Chest palpation & inspection: normal inspection of the chest Resp: Auscultation: clear to auscultation bilaterally, no crackles and no wheezes Cardio: Jugular venous distension: no JVD Palpation: normal PMI Heart sounds: S1 normal heart sound present, S2 normal heart sound present, no gallops, no murmurs and no rubs GI: Palpation (GI): Soft to palpation Back/Spine/Pelvis: Other: unremarkable Skin: General skin exam: no rashes or lesions noted Neuro: Cranial nerves: Yes Other cranial nerve findings present Extrem: General: Yes no clubbing, cyanosis or edema Psych: Mental Status: other Results Labs and Meds Result diagrams: 02/01/21 05:32 02/01/21 05:32 Lab results: Laboratory Results - last 24 hr 01/31/21 01/31/21 01/31/21 10:47 10:47 10:47 WBC 4.6 L RBC 4.30 Hgb 13.7 Hct 41.1 MCV 95.6 MCH 31.9 MCHC 33.3 RDW 12.7 Plt Count 183 MPV 9.4 Immature Gran % (Auto) 0.2 Neut % (Auto) 67.2 Lymph % (Auto) 20.6 [place] % (Auto) 5.6 Eos % (Auto) 5.8 H Baso % (Auto) 0.6 Lymph # (Auto) 1.0 L [place] # (Auto) 0.3 Eos # (Auto) 0.3 Baso # (Auto) 0.0 Abs Immat Gran (auto) 0.01 Absolute Neuts (auto) 3.1 Absolute Nucleated RBC 0.000 Nucleated RBC % (auto) 0.0 Sodium 143 Potassium 3.9 Chloride 105 Carbon Dioxide 31 H Anion Gap 11 L BUN 11 Creatinine 0.77 Estim Creat Clear Calc 90.2 Estimated GFR > 60 Random Glucose 131 H Calcium 9.4 Total Bilirubin 0.4 AST 24 ALT 37 H Alkaline Phosphatase 90 Troponin I High Sens < 3.5 Total Protein 6.8 Albumin 4.1 COVID-19 (RENAN) COVID-19 Clin Com 01/31/21 01/31/21 02/01/21 10:47 12:44 05:32 WBC 5.3 RBC 4.22 Hgb 12.9 Hct 39.8 MCV 94.3 MCH 30.6 MCHC 32.4 RDW 12.7 Plt Count 192 MPV 9.9 Immature Gran % (Auto) 0.2 Neut % (Auto) 56.1 Lymph % (Auto) 29.6 [place] % (Auto) 8.1 Eos % (Auto) 5.6 H Baso % (Auto) 0.4 Lymph # (Auto) 1.6 [place] # (Auto) 0.4 Eos # (Auto) 0.3 Baso # (Auto) 0.0 Abs Immat Gran (auto) 0.01 Absolute Neuts (auto) 3.0 Absolute Nucleated RBC 0.000 Nucleated RBC % (auto) 0.0 Sodium Potassium Chloride Carbon Dioxide Anion Gap BUN Creatinine Estim Creat Clear Calc Estimated GFR Random Glucose Calcium Total Bilirubin AST ALT Alkaline Phosphatase Troponin I High Sens < 3.5 Total Protein Albumin COVID-19 (RENAN) Negative COVID-19 Clin Com See Note 02/01/21 05:32 WBC RBC Hgb Hct MCV MCH MCHC RDW Plt Count MPV Immature Gran % (Auto) Neut % (Auto) Lymph % (Auto) [place] % (Auto) Eos % (Auto) Baso % (Auto) Lymph # (Auto) [place] # (Auto) Eos # (Auto) Baso # (Auto) Abs Immat Gran (auto) Absolute Neuts (auto) Absolute Nucleated RBC Nucleated RBC % (auto) Sodium 143 Potassium 4.4 Chloride 104 Carbon Dioxide 31 H Anion Gap 12 BUN 13 Creatinine 0.82 Estim Creat Clear Calc 84.3 Estimated GFR > 60 Random Glucose 84 Calcium 9.3 Total Bilirubin AST ALT Alkaline Phosphatase Troponin I High Sens Total Protein Albumin COVID-19 (RENAN) COVID-19 Clin Com ECG Interpretation: EKG today with sinus, 68/min, poor R progression anterior leads, non specific ST-T changes. Imaging Radiologist's impression: Impressions Chest X-Ray 01/31/21 10:18 IMPRESSION: Possible mild left basilar atelectasis and/or very small left pleural effusion. Assessment and Plan (1) Chest pain: Status: Acute (2) PAF (paroxysmal atrial fibrillation): Status: Acute Troponins are unremarkable and negative 2 sets. A prior myocardial perfusion imaging study from [facility] in October 2019 showed normal perfusion and no evidence of any ischemia or infarction. As she has been having recurrent chest pain, at coronary CTA has been arranged as an outpatient and still pending at this time. We can do an echocardiogram while she was here and if that shows normal LV function without any wall motion abnormalities, then discharge home. Okay to use sublingual nitroglycerin if necessary but still doubt if this is angina or not. With regard to her concern for high blood pressures when EMS came, she needs to do home blood pressures and I reinforced this today. If her blood pressures are in the high, then may need meds for that. However, hospital blood pressure seem fairly reasonable, apart from one high reading of 158/82 mmHg. She was also interested about anticoagulation due to history of atrial fibrillation but as she has not had any recent episodes of the same, we would recommend Holter monitor as an outpatient to assess for subclinical atrial fibrillation. Procedures Date of Service Date of Service: 02/01/21
[2021-02-01 12:00] VITALS: BP 142/72; PULSE 68; RESP 18; TEMP 36.2; O2SAT 93
--- NOTE | 2021-02-01 14:57 | P.DS_ITS ---
DS: Providers Provider Date of Service: 02/01/21 Date of admission: 01/31/21 15:09 Primary care physician: Ash Mcdowell MD Consults: 02/01/21 08:23 Consult to Cardiology Routine Consulting Provider: [facility] Reason for consultation: chest pain af DS: Diagnosis Discharge Diagnosis (1) Chest pain: Status: Acute (2) PAF (paroxysmal atrial fibrillation): Status: Acute DS: Summary Hospital Course Hospital Course: from admission H+P by Jeffrey Cuellar DO, hospitalist, 01/31/21: 65-year-old female with history of paroxysmal atrial fibrillation presents after 1 hour of retrosternal chest pain.? She had mild shortness of breath accompanied by this but no diaphoresis.? She was given some nitroglycerin that relieved her pain and ambulance aspirin.? Initial 2 troponins are negative however she will be admitted observation with cardiac consult in the morning The patient had 2 negative high-sensitivity troponin-I measurements and chest pain did not recur. Echocardiography was negative for regional wall motion abnormalities. She was seen by her usual hospice educator in consultation and plan will be for outpatient follow-up with CT of the coronary arteries. She may take nitroglycerin sublingually as needed for chest pain. She should monitor her blood pressure at home. Time Spent with Patient Time attestation: Total time spent providing and/or coordinating discharge services: Discharge coordination time: Less than 30 minutes Quality: Stroke Does the patient have a stroke diagnosis?: No Physical Exam Vital Signs: Vital Signs: Last Vital Signs Temp 97.2 F 02/01/21 12:00 Pulse 68 02/01/21 12:00 Resp 18 02/01/21 12:00 BP 142/72 H 02/01/21 12:00 Pulse Ox 93 02/01/21 12:00 Body Mass Index 32.4 Gen: in no acute distress HEENT: sclera anicteric, moist mucus membranes Neck: supple Lungs: clear to auscultation bilaterally Heart: regular rate and rhythm, no murmurs Abd: soft, non-tender, non-distended Ext: no edema Skin: warm/well-perfused Neuro: alert and oriented x3, no focal findings Psych: appropriate affect DS: Data Data Completed and Pending Completed studies during hospitalization [Text1]: Laboratory Results WBC 5.3 X10*3/uL (4.8-10.8) 11/08/21 05:32 RBC 4.22 X10*6/uL (4.20-5.50) 02/01/21 05:32 Hgb 12.9 g/dl (12.0-16.0) 02/01/21 05:32 Hct 39.8 % (37.0-47.0) 02/01/21 05:32 MCV 94.3 fL (80.0-98.0) 02/01/21 05:32 MCH 30.6 pg (27.0-33.0) 02/01/21 05:32 MCHC 32.4 g/dl (31.0-35.0) 02/01/21 05:32 RDW 12.7 % (11.0-16.0) 02/01/21 05:32 Plt Count 192 X10*3/uL (160-400) 02/01/21 05:32 MPV 9.9 fL (9.4-12.3) 02/01/21 05:32 Immature Gran % (Auto) 0.2 % (0.0-0.4) 02/01/21 05:32 Neut % (Auto) 56.1 % (45-73) 02/01/21 05:32 Lymph % (Auto) 29.6 % (20-40) 02/01/21 05:32 [place] % (Auto) 8.1 % (2-11) 02/01/21 05:32 Eos % (Auto) 5.6 % (0-4) H 02/01/21 05:32 Baso % (Auto) 0.4 % (0-2) 02/01/21 05:32 Lymph # (Auto) 1.6 X10*3/uL (1.2-4.9) 02/01/21 05:32 [place] # (Auto) 0.4 X10*3/uL (0.1-1.2) 02/01/21 05:32 Eos # (Auto) 0.3 X10*3/uL (0.0-0.4) 02/01/21 05:32 Baso # (Auto) 0.0 X10*3/uL (0.0-0.2) 02/01/21 05:32 Abs Immat Gran (auto) 0.01 X10*3/uL (0.00-0.03) 02/01/21 05:32 Absolute Neuts (auto) 3.0 x10*3/uL (2.0-8.3) 02/01/21 05:32 Absolute Nucleated RBC 0.000 X10*3/uL (0.0-0.012) 02/01/21 05:32 Nucleated RBC % (auto) 0.0 /100WBC (0.0-0.2) 02/01/21 05:32 Sodium 143 mmol/L (135-145) 02/01/21 05:32 Potassium 4.4 mmol/L (3.3-5.1) 02/01/21 05:32 Chloride 104 mmol/L (96-108) 02/01/21 05:32 Carbon Dioxide 31 mmol/L (22-29) H 02/01/21 05:32 Anion Gap 12 (12-20) 02/01/21 05:32 BUN 13 mg/dL (9-16) 02/01/21 05:32 Creatinine 0.82 mg/dL (0.5-1.4) 02/01/21 05:32 Estim Creat Clear Calc 84.3 02/01/21 05:32 Estimated GFR > 60 02/01/21 05:32 Random Glucose 84 mg/dL (60-115) 02/01/21 05:32 Calcium 9.3 mg/dL (8.4-10.2) 02/01/21 05:32 Total Bilirubin 0.4 mg/dL (0.0-1.0) 01/31/21 10:47 AST 24 U/L (5-31) 01/31/21 10:47 ALT 37 U/L (0-31) H 01/31/21 10:47 Alkaline Phosphatase 90 U/L (39-117) 01/31/21 10:47 Troponin I High Sens < 3.5 ng/L (<3.5-17.0) 01/31/21 12:44 Total Protein 6.8 g/dL (6.5-8.0) 01/31/21 10:47 Albumin 4.1 g/dL (3.5-5.0) 01/31/21 10:47 COVID-19 (RENAN) Negative (Negative) 01/31/21 10:47 COVID-19 Clin Com See Note 01/31/21 10:47 Impressions Chest X-Ray 01/31/21 10:18 IMPRESSION: Possible mild left basilar atelectasis and/or very small left pleural effusion. TTE 02/01/21 - The left ventricular systolic function is normal.? The ? calculated ejection fraction is 59% by biplane method. ? - There is mild calcification of the aortic valve. ? - No obvious valvular pathology seen on this study.? Discharge Plan Discharge Patient Disposition: Home, Self-Care Referrals: Ash Mcdowell MD [Primary Care Provider] - 1 Week Vladimir Manley MD [Physician] - 1 Week Discharge Medications: New nitroglycerin [Nitrostat] 0.4 mg Tablet, Sublingual 0.4 mg sublingual Q5MX3 PRN (Reason: Chest Pain) Qty: 30 RF: 0 Continued atorvastatin 80 mg tablet 80 mg PO DAILY 90 Days Qty: 90 RF: 3 citalopram 40 mg tablet 40 mg PO DAILY RF: 0 lamotrigine 100 mg tablet 250 mg PO BEDTIME RF: 0 docusate sodium 100 mg capsule 100 mg PO DAILY RF: 0 naproxen 500 mg tablet 500 mg PO BEDTIME RF: 0 latanoprost 0.005 % drops 1 drp ophthalmic (eye) BEDTIME RF: 0 trazodone 100 mg tablet 100 - 200 mg PO BEDTIME PRN (Reason: Sleep) RF: 0 aspirin 81 mg tablet,delayed release (DR/EC) 81 mg PO DAILY RF: 0 flecainide 100 mg tablet 100 mg PO BID Qty: 180 RF: 4 hydroxyzine HCl 25 mg tablet 12.5 - 25 mg PO DAILY PRN (Reason: Anxiety) RF: 0 Discharge Orders: Discharge Order (Routine); Ordered 02/01/21 Ordered By: Luis F Rapp Diet: advance to usual diet Activity on Discharge: As tolerated Stand Alone Forms: Patient Portal Discharge page Care Plan Goals: resolution of chest pain Health Concerns: chest pain Plan of Treatment: use nitroglycerin 1 tab under the tongue every 5 up to 3 doses maximum as needed for chest pain follow up with [facility]- Dr Manley- and obtain coronary artery CT monitor your blood pressure at home Assessment: see Discharge Summary
[2021-02-01 15:44] VITALS: BP 131/79; PULSE 68; RESP 16; TEMP 36.2; O2SAT 94
== END 2021-02-01 04:30 | disposition home or self-care (01) ==
LOC: HO.ED 15:16 → HO.EDOVER 15:29 → HO.S3 23:16
PROVIDERS: Physician Assistant; Admitting Provider Hospitalist; Emergency Provider Emergency Medicine Emergency Medical Services; PCP Internal Medicine; Visit Provider Family Medicine
DX: R07.9 Chest pain, unspecified (principal); I48.0 Paroxysmal atrial fibrillation; I25.2 Old myocardial infarction; E78.5 Hyperlipidemia, unspecified; H40.9 Unspecified glaucoma; F33.9 Major depressive disorder, recurrent, unspecified; R06.02 Shortness of breath; F41.9 Anxiety disorder, unspecified; Z20.822 Contact with and (suspected) exposure to COVID-19; Z88.6 Allergy status to analgesic agent; Z79.899 Other long term (current) drug therapy
CPT/HCPCS: 36415; 71045; 80048; 80053; 84484; 85025; 87635; 93005; 93306; 96372; 99205; 99218; 99285; J1650

== ENCOUNTER → 2021-02-22 08:00 | Outpatient (REF) | payer MEDICARE, SELFPAY ==
--- NOTE | 2021-02-22 08:04 | HM_ITS ---
Conclusion: 1. Patient was monitored for a total of 8 days and 2 hours 2. Baseline rhythm is NSR with average HR of 69 bpm 3. No significant pauses or bradycardia noted 4. 46 short bursts of SVT noted with longest episode of 13 beats 5. Rare PACs and PVCs noted with total burden of 0.1 % 6. Patient reported 6 events that correlated with NSR MTDD
== END ==
LOC: HO.CARD 08:00
PROVIDERS: Visit Provider Internal Medicine
DX: I48.0 Paroxysmal atrial fibrillation (principal)
CPT/HCPCS: 93246

== ENCOUNTER → 2021-03-22 09:37 | Outpatient (BNVA) | payer MEDICARE, SELFPAY | PROVIDERS: PCP Internal Medicine; Referring Provider Internal Medicine; Visit Provider Internal Medicine | DX: I48.0 Paroxysmal atrial fibrillation (principal); I25.10 Atherosclerotic heart disease of native coronary artery without angina pectoris; E78.5 Hyperlipidemia, unspecified | CPT/HCPCS: 99212 ==

== ENCOUNTER 2021-07-30 11:38 | Outpatient (REF) | payer MEDICARE, SELFPAY ==
[2021-07-30 13:19] LABS: Anion Gap 12 (12-20); Blood Urea Nitrogen 18 mg/dL (9-16); Calcium 10.1 mg/dL (8.4-10.2); Carbon Dioxide 30 mmol/L (22-29); Chloride 103 mmol/L (96-108); Estimated Glomerular Filt Rate > 60; Glucose Random 73 mg/dL (60-115); Potassium 4.3 mmol/L (3.3-5.1); Sodium 141 mmol/L (135-145)
== END 2021-07-30 11:39 | disposition home or self-care (01) ==
LOC: HO.LAB 11:38
PROVIDERS: PCP Internal Medicine; Visit Provider Registered Nurse
DX: Z79.899 Other long term (current) drug therapy (principal)
CPT/HCPCS: 36415; 80048

== ENCOUNTER 2021-12-02 07:52 | Outpatient (REF) | payer BC, SELFPAY ==
[2021-12-02 11:17] LABS: MANUAL DIFF FLAG NO
[2021-12-02 11:33] LABS: Basophils Percent Auto 0.3 % (0-2); Eosinophils Absolute Auto 0.1 X10*3/uL (0.0-0.4); Eosinophils Percent Auto 1.7 % (0-4); Hematocrit 41.4 % (37.0-47.0); Hemoglobin 13.6 g/dl (12.0-16.0); Imm Gran Abs Auto 0.02 X10*3/uL (0.00-0.03); Imm Gran Pct Auto 0.3 % (0.0-0.4); Lymphocytes Absolute Auto 1.6 X10*3/uL (1.2-4.9); Lymphocytes Percent Auto 27.4 % (20-40); Mean Corpuscular HGB Conc 32.9 g/dl (31.0-35.0); Mean Corpuscular Hemoglobin 30.9 pg (27.0-33.0); Mean Corpuscular Volume 94.1 fL (80.0-98.0); Mean Platelet Volume 10.7 fL (9.4-12.3); Monocytes Absolute Auto 0.6 X10*3/uL (0.1-1.2); Neutrophils Absolute Auto 3.4 x10*3/uL (2.0-8.3); Neutrophils Percent Auto 59.3 % (45-73); Platelet Count 192 X10*3/uL (160-400); Red Cell Distribution Width 12.8 % (11.0-16.0); White Blood Count 5.8 X10*3/uL (4.8-10.8)
[2021-12-02 12:38] LABS: Alanine Aminotransferase 58 U/L (0-31); Albumin Level 4.2 g/dL (3.5-5.0); Alkaline Phosphatase 104 U/L (39-117); Anion Gap 17 (12-20); Aspartate Amino Transferase 28 U/L (5-31); Bilirubin Total 0.5 mg/dL (0.0-1.0); Blood Urea Nitrogen 10 mg/dL (9-16); Carbon Dioxide 29 mmol/L (22-29); Chloride 105 mmol/L (96-108); Cholesterol 197 mg/dL; Estimated Glomerular Filt Rate > 60; Glucose Fasting 79 mg/dL (60-99); HDL Cholesterol 58 mg/dL; LDL Cholesterol Calculated 128 mg/dl; Potassium 4.5 mmol/L (3.3-5.1); Sodium 146 mmol/L (135-145); Total Protein 7.2 g/dL (6.5-8.0); Triglycerides 58 mg/dL
[2021-12-02 13:03] LABS: TSH reflex Free T4 1.95 uIU/mL (0.32-4.0)
[2021-12-02 13:52] LABS: Vitamin D 25-OH Total 59.5 ng/mL (>30)
== END 2021-12-02 07:53 | disposition home or self-care (01) ==
LOC: HO.HMGCLDS 07:52
PROVIDERS: PCP Internal Medicine; Visit Provider Internal Medicine
DX: E78.5 Hyperlipidemia, unspecified (principal); E55.9 Vitamin D deficiency, unspecified
CPT/HCPCS: 36415; 80053; 80061; 82306; 84443; 85025

== ENCOUNTER 2021-12-08 14:01 | Outpatient (REF) | payer MEDICARE, SELFPAY ==
--- NOTE | ~2021-12-08 | MM_ITS ---
EXAMINATION: MM SCREENING DIGITAL BREAST TOMOSYNTHESIS, BILATERAL CLINICAL INFORMATION: Screening. Asymptomatic. The lifetime risk of breast cancer based on the Tyrer-Cuzick Model is 6%. COMPARISON: Outside mammography: 03/31/2020, 04/03/2019, 03/28/2019, 04/26/2018, 03/22/2018 ([place]). TECHNIQUE: Digital breast tomosynthesis is performed in both the craniocaudal and mediolateral oblique views along with computer-aided detection (CAD). Synthesized 2D images are generated from the tomosynthesis. FINDINGS: There are scattered areas of fibroglandular density (ACR BI-RADS breast composition Category b). There are no significant masses, abnormal calcifications, or other abnormalities. Parenchymal pattern is similar to prior outside exams. There is no developing density or architectural abnormality. The axilla and skin contours are unremarkable. No significant changes. MM/MM tomosynthesis screening BI IMPRESSION: No mammographic evidence of malignancy. ASSESSMENT: BI-RADS 1: Negative RECOMMENDATION: Routine annual mammography screening. This patient's information was entered into a reminder system with a target due date for their next mammogram.
== END 2021-12-08 14:02 | disposition home or self-care (01) ==
LOC: HO.MAMMO 14:01
PROVIDERS: PCP Internal Medicine; Visit Provider Internal Medicine
DX: Z12.31 Encounter for screening mammogram for malignant neoplasm of breast (principal)
CPT/HCPCS: 77063; 77067

== ENCOUNTER → 2021-12-20 07:57 | Outpatient (BNVA) | payer MEDICARE, SELFPAY | PROVIDERS: PCP Internal Medicine; Referring Provider Internal Medicine; Visit Provider Nurse Practitioner Family | DX: Z12.11 Encounter for screening for malignant neoplasm of colon (principal); K59.01 Slow transit constipation | CPT/HCPCS: 99202 ==

== ENCOUNTER → 2022-02-07 08:09 | Outpatient (BNVA) | payer MEDICARE, SELFPAY | PROVIDERS: PCP Internal Medicine; Referring Provider Internal Medicine; Visit Provider Internal Medicine | DX: Z01.810 Encounter for preprocedural cardiovascular examination (principal); I25.10 Atherosclerotic heart disease of native coronary artery without angina pectoris; I48.0 Paroxysmal atrial fibrillation; E78.5 Hyperlipidemia, unspecified | CPT/HCPCS: 93005; 99212 ==

== ENCOUNTER 2022-03-09 12:43 | Emergency (ER) | payer MEDICARE, SELFPAY ==
--- NOTE | ~2022-03-09 | XR_ITS ---
EXAMINATION: XR LUMBOSACRAL SPINE CLINICAL INFORMATION: Fell on back. COMPARISON: None TECHNIQUE: Three views of the lumbosacral spine. FINDINGS: There is normal lumbar lordosis with grade 1 retrolisthesis L2 over L3. Rest of the alignment is normal. Loss of L2-L3 and L5-S1 disc heights is seen. There is mild ventral spondylosis. No visible acute fracture or dislocation seen. The SI joints are symmetrical. No lytic or sclerotic process. The paravertebral soft tissues are normal. XR/XR lumbar spine 2-3V IMPRESSION: 1. Grade 1 retrolisthesis L2 over L3. 2. Degenerative disc changes L2-L3 and L5-S1 disc levels with mild ventral spondylosis. No visible acute fracture or dislocation seen.
[2022-03-09 14:14] VITALS: BP 143/83; PULSE 63; RESP 18; TEMP 35.7; O2SAT 94; BMI 30.2
--- NOTE | 2022-03-09 14:15 | ED_ITS ---
HPI - Fall General Chief Complaint: Back Pain/Injury <Janeen Johnson NP - Last Filed: 03/09/22 14:18> Stated Complaint: lower back pain, fall x1 week ago <Janeen Johnson NP - Last Filed: 03/09/22 14:18> Time Seen by Provider: 03/09/22 17:16 <Janeen Johnson NP - Last Filed: 03/09/22 14:18> Source: patient <SETH Isbell - Last Filed: 03/09/22 17:38> Mode of arrival: ambulatory <SETH Isbell - Last Filed: 03/09/22 17:38> Limitations: no limitations <SETH Isbell - Last Filed: 03/09/22 17:38> History of Present Illness HPI Narrative: Patient is a 66 year old assigned female at with a history of atrial fibrillation presenting to the emergency department today with low back pain. Patient states that she fell a week and a half ago and ever since has had low back pain. Patient states that she is concerned something in her back is broken and would like it examined. Patient denies any dizziness, lightheadedness, abdominal pain, nausea, vomiting, fever, chills, blurry vision, double vision, loss of vision, chest pain, difficulty breathing, shortness of breath, night sweats, pain with urination, increased urinary frequency, increased urinary urgency, blood in her urine or stool, syncope or a near syncopal episode, recent trauma or falls, bowel incontinence, bladder incontinence, bowel retention, bladder retention, or any other complaints at this time. <SETH Isbell - Last Filed: 03/09/22 17:38> Onset (ago): week(s) (1.5) <SETH Isbell - Last Filed: 03/09/22 17:38> Place fall occurred: home <SETH Isbell - Last Filed: 03/09/22 17:38> Loss of consciousness: none <SETH Isbell - Last Filed: 03/09/22 17:38> Prolonged down time: no <SETH Isbell Last Filed: 03/09/22 17:38> Symptoms prior to fall: none <SETH Isbell - Last Filed: 03/09/22 17:38> Context: tripped/slipped <SETH Isbell - Last Filed: 03/09/22 17:38> Related Data Home Medications: Home Medications Medication Instructions Recorded Confirmed aspirin 81 mg tablet,delayed 81 mg PO DAILY 10/01/20 02/07/22 release lamotrigine 100 mg tablet 250 mg PO BEDTIME 10/01/20 02/07/22 latanoprost 0.005 % eye drops 1 drp ophthalmic (eye) BEDTIME 10/01/20 02/07/22 trazodone 100 mg tablet 100 - 200 mg PO BEDTIME PRN Sleep 10/01/20 02/07/22 hydroxyzine HCl 25 mg tablet 12.5 - 25 mg PO DAILY PRN Anxiety 12/16/20 02/07/22 ascorbic acid (vitamin C) 500 mg mg PO 12/01/21 02/07/22 capsule cholecalciferol (vitamin D3) PO 12/01/21 02/07/22 fluoxetine 20 mg capsule 20 mg PO QAM 12/01/21 02/07/22 Previous Rx's Medication Instructions Recorded bisacodyl 5 mg tablet,delayed 10 mg PO ONCE 1 day #2 tabs 12/20/21 release (Dulcolax (bisacodyl)) docusate sodium 100 mg capsule 100 mg PO BEDTIME #90 caps 12/20/21 polyethylene glycol 3350 17 17 g PO DAILY #510 grams 12/20/21 gram/dose oral powder (Miralax) polyethylene glycol 3350 17 238 g PO ONCE #238 grams 12/20/21 gram/dose oral powder (Miralax) atorvastatin 80 mg tablet 80 mg PO DAILY #90 tabs 01/07/22 <Janeen Johnson NP - Last Filed: 03/09/22 14:18> Allergies/Adverse Reactions: Allergies Allergy/AdvReac Type Severity Reaction Status Date / Time oxycodone [From PERCODAN] Allergy Intermediate HIVES Verified 02/07/22 08:24 Hydrocodone-Acetaminophen AdvReac Unknown nausea and Uncoded 02/07/22 08:24 vomiting <Janeen Johnson NP - Last Filed: 03/09/22 14:18> Review of Systems Constitutional: Constitutional: Reports no additional constitutional complaints, Denies chills, Denies fever(s) and Denies night sweats <SETH Isbell - Last Filed: 03/09/22 17:38> Eyes: Eyes: Reports no additional eye complaints, Denies blurry vision, Denies change in vision, Denies diplopia, Denies eye discharge, Denies loss of vision and Denies eye pain <SETH Isbell - Last Filed: 03/09/22 17:38> ENT: Denies dizziness <SETH Isbell - Last Filed: 03/09/22 17:38> Cardiovascular: Cardiovascular: Reports no additional cardiovascular complaints, Denies chest pain, Denies lightheadedness, Denies Loss of Consciousness and Denies dyspnea <SETH Isbell - Last Filed: 03/09/22 17:38> Respiratory: Respiratory: Reports no additional respiratory complaints and Denies dyspnea <SETH Isbell - Last Filed: 03/09/22 17:38> Gastrointestinal: Gastrointestinal: Reports no additional gastrointestinal complaints, Denies abdominal pain, Denies melena, Denies hematochezia, Denies change in bowel habits and Denies change in stool character <SETH Isblel - Last Filed: 03/09/22 17:38> Genitourinary: Genitourinary: Denies hematuria, Denies urinary frequency, Denies dysuria, Denies urinary incontinence, Denies urinary hesitancy and Denies urinary urgency <SETH Isbell - Last Filed: 03/09/22 17:38> Musculoskeletal: Musculoskeletal: Reports no additional musculoskeletal complaints, Reports back pain, Denies numbness and Denies tingling <SETH Isbell - Last Filed: 03/09/22 17:38> Neurologic: Denies dizziness, Denies loss of vision, Denies numbness and Denies tingling <SETH Isbell - Last Filed: 03/09/22 17:38> Psychiatric: Psychiatric: Reports no additional psychiatric complaints <SETH Isbell - Last Filed: 03/09/22 17:38> Endocrine: Endocrine: Reports no additional endocrine complaints <SETH Isbell - Last Filed: 03/09/22 17:38> Hematologic/Lymphatic: Hematologic/Lymphatic: Reports no additional hematologic/lymphatic complaints <SETH Isbell - Last Filed: 03/09/22 17:38> Allergic/Immunologic: Allergic/Immunologic: Reports no additional allergic/immunologic complaints <SETH Isbell - Last Filed: 03/09/22 17:38> PMFSH Past Medical History Attestation statement: The following information was validated with the patient. <SETH Hightower - Last Filed: 03/09/22 17:38> Source: old records reviewed and nursing notes reviewed <SETH Isbell - Last Filed: 03/09/22 17:38> Medical History: Medical History PAF (paroxysmal atrial fibrillation) <Janeen Johnson NP - Last Filed: 03/09/22 14:18> Surgical History: Surgical History History of bowel resection History of knee surgery <Janeen Johnson NP - Last Filed: 03/09/22 14:18> Family History Family History: Family History Father Myocardial infarction CVD (cardiovascular disease) Mother Mental health disorder Sister Mental health disorder <Janeen Johnson NP - Last Filed: 03/09/22 14:18> Social History Social History: Social History Household Members: Spouse and Family 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:: , 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, 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, 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 Do you presently have visiting nurse or other home services: No Alcohol intake: current Alcohol intake frequency: a few times a month Patient Tobacco Use Status: Never used Tobacco e-Cigarette/Vaping Use: Never Used Advance Directives: Yes Advance Directives Information Provided: No Advance Directives on File: No service: No Current occupational status: retired Cognitive needs: No Hearing needs: No Vision needs: Yes <Janeen Johnson NP - Last Filed: 03/09/22 14:18> Physical Exam Vital Signs: Vital Signs: Last Vital Signs Temp 96.2 F L 03/09/22 14:14 Pulse 63 03/09/22 14:14 Resp 18 03/09/22 14:14 BP 143/83 H 03/09/22 14:14 Pulse Ox 94 03/09/22 14:14 O2 Del Method 03/09/22 14:14 BMI result Body Mass Index 30.2 <Janeen Johnson NP - Last Filed: 03/09/22 14:18> Vital Signs: Last Vital Signs Temp 96.2 F L 03/09/22 14:14 Pulse 63 03/09/22 14:14 Resp 18 03/09/22 14:14 BP 143/83 H 03/09/22 14:14 Pulse Ox 94 03/09/22 14:14 O2 Del Method 03/09/22 14:14 BMI result Body Mass Index 30.2 <SETH Isbell - Last Filed: 03/09/22 17:38> Const: General: cooperative, no acute distress, alert and awake <SETH Isbell - Last Filed: 03/09/22 17:38> Nutritional Appearance: well nourished <SETH Isbell - Last Filed: 03/09/22 17:38> Orientation/consciousness: patient oriented x3 <SETH Isbell - Last Filed: 03/09/22 17:38> Limitations: no limitations <SETH Isbell - Last Filed: 03/09/22 17:38> HEENT: Head: Yes normal to inspection and Yes atraumatic <SETH Isbell - Last Filed: 03/09/22 17:38> Ears: hearing grossly normal bilaterally and external ears normal <SETH Isbell - Last Filed: 03/09/22 17:38> General nose exam: Normal external nose present, no nasal discharge noted and no epistaxis <SETH Isbell - Last Filed: 03/09/22 17:38> Face and sinus: Yes normal facial exam, No abrasion and No laceration <SETH Isbell - Last Filed: 03/09/22 17:38> Mouth: Normal oral and palatal mucosa present, no drooling and no muffled voice <SETH Isbell - Last Filed: 03/09/22 17:38> Eyes: General: appearance normal, both eyes and all related structures <SETH Isbell - Last Filed: 03/09/22 17:38> Periorbital: periorbital findings normal <Sowmya Polk W[place] - Last Filed: 03/09/22 17:38> Eyelids: Yes eyelids normal <Sowmya Polk W[place] - Last Filed: 03/09/22 17:38> Conjunctivae: conjunctivae normal <Sowmya Polk W[place] - Last Filed: 03/09/22 17:38> Pupils: Equal, round and reactive pupils present <Sowmya Polk W[place] - Last Filed: 03/09/22 17:38> EOM: EOMs intact bilaterally <Sowmya Polk W[place] - Last Filed: 03/09/22 17:38> Neck: Neck: Yes normal visual inspection, Yes full ROM and Yes no lymphadenopathy <Sowmya Polk W[place] - Last Filed: 03/09/22 17:38> Chest: Chest palpation & inspection: normal inspection of the chest <Sowmya Polk W[place] - Last Filed: 03/09/22 17:38> Resp: Effort & Inspection: normal respiratory effort and able to speak in complete sentences <Sowmya Polk W[place] - Last Filed: 03/09/22 17:38> Auscultation: clear to auscultation bilaterally <Sowmya Polk W[place] - Last Filed: 03/09/22 17:38> Cardio: Rate: regular rate <Sowmya Polk W[place] - Last Filed: 03/09/22 1 7:38> Rhythm: regular rhythm <Sowmya Polk W[place] - Last Filed: 03/09/22 17:38> GI: Inspection: Yes normal to inspection <Sowmya Polk W[place] - Last Filed: 03/09/22 17:38> Palpation (GI): Soft to palpation, not firm, nontender, no guarding and not rigid <Sowmya Polk W[place] - Last Filed: 03/09/22 17:38> : General: Yes no CVA tenderness <Sowmya Polk W[place] - Last Filed: 03/09/22 17:38> Back/Spine/Pelvis: Back: no CVA tenderness <Sowmya Polk W[place] - Last Filed: 03/09/22 17:38> Cervical Spine: normal cervical lordosis and cervical ROM normal <Sowmya Polk PA - Last Filed: 03/09/22 17:38> Thoracic/Lumbar Spine: thoracic and lumbar spine normal to inspection and thoraco-lumbar ROM normal <Sowmyaveronika MesaSETH roy - Last Filed: 03/09/22 17:38> Neuro: General: patient oriented x3 and moves all extremities <Sowmyaveronika MesaSETH roy - Last Filed: 03/09/22 17:38> Cranial nerves: Yes Equal, round and reactive pupils present <Sowmya SETH Polk - Last Filed: 03/09/22 17:38> Cognition (Neuro): normal cognition <Sowmya Felicitas PA - Last Filed: 03/09/22 17:38> Motor exam (neuro): 5/5 motor strength present throughout <Sowmya PolkSETH roy - Last Filed: 03/09/22 17:38> Sensory Exam: Normal double simultaneous stimulation for sensation <SETH Isbell - Last Filed: 03/09/22 17:38> Coordination: [id number] test normal <SETH Isbell - Last Filed: 03/09/22 17:38> Extrem: General: Yes normal to inspection, Yes full ROM and Yes capillary refill normal <Sowmya Polk PA - Last Filed: 03/09/22 17:38> Psych: Appearance: grossly normal <SETH Isbell - Last Filed: 03/09/22 17:38> Mental Status: mental status grossly normal <SETH Isbell - Last Filed: 03/09/22 17:38> Affect: normal affect <SETH Isbell - Last Filed: 03/09/22 17:38> Attitude: cooperative <SETH Isbell - Last Filed: 03/09/22 17:38> Thought process: Normal thought process present <SETH Isbell - Last Filed: 03/09/22 17:38> Thought content: Normal thought content present <SETH Isbell - Last Filed: 03/09/22 17:38> Insight: Good insight present (Psych) <SETH Isbell - Last Filed: 03/09/22 17:38> Course Course Course Narrative: This is a rapid medical exam. Deferred additional HPI, ROS, PE to primary provider. 66 yo female with past medical history asthma, hld, depression, glaucoma, afib s/p ablation here with fall one week ago with continued low back pain since the fall. NO AC therpy, asa only. VSS. Will check x-rays. <Janeen Johnson NP - Last Filed: 03/09/22 14:18> Medical Decision Making Medical Decision Making MDM Narrative: Patient is a 66 year old assigned female at with a history of atrial fibrillation presenting to the emergency department today with back pain. Patient's physical exam was unremarkable. Patient's lumbar spine x-ray showed no acute process. I explained my physical exam findings as well as all test results to the patient. I answered all questions asked by the patient. I stressed the importance of the patient taking her medication as prescribed. I stressed the importance of the patient following up with her primary care provider. I stressed the importance of the patient returning to the emergency department immediately if her symptoms were to worsen or if she were to develop any dizziness, shortness of breath, difficulty breathing, chest pain, blurry vision, loss of vision, nausea, vomiting, abdominal pain, fever, chills, back pain, or any other complaints. Patient verbalized agreement and understanding with this treatment plan and discharge. <SETH Isbell - Last Filed: 03/09/22 17:38> Differential Diagnosis Differential Diagnoses: The differential diagnosis associated with the presentation includes <SETH Isbell - Last Filed: 03/09/22 17:38> back pain <SETH Isbell - Last Filed: 03/09/22 17:38> Radiology Impression Discussion of test interpretation with radiology: I have reviewed the radiologist's reading. <SETH Isbell - Last Filed: 03/09/22 17:38> Radiologist Impression: EXAMINATION: XR LUMBOSACRAL SPINE CLINICAL INFORMATION: Fell on back. COMPARISON: None TECHNIQUE: Three views of the lumbosacral spine. FINDINGS: There is normal lumbar lordosis with grade 1 retrolisthesis L2 over L3. Rest of the alignment is normal. Loss of L2-L3 and L5-S1 disc heights is seen. There is mild ventral spondylosis. No visible acute fracture or dislocation seen. The SI joints are symmetrical. No lytic or sclerotic process. The paravertebral soft tissues are normal. XR/XR lumbar spine 2-3V IMPRESSION: 1.? Grade 1 retrolisthesis L2 over L3. 2.? Degenerative disc changes L2-L3 and L5-S1 disc levels with mild ventral spondylosis. No visible acute fracture or dislocation seen. Dictated By: Palomo Boone MD Signed By: Electronically signed by Palomo Boone MD 03/09/22 1530 <SETH Isbell - Last Filed: 03/09/22 17:38> Discharge Plan Discharge Clinical Impression: Back pain <Janeen Johnson NP - Last Filed: 03/09/22 14:18> Patient Disposition: Home, Self-Care <Janeen Johnson NP - Last Filed: 03/09/22 14:18> Instructions: Back Pain (ED) <Janeen Johnson NP - Last Filed: 03/09/22 14:18> Additional Instructions: Follow up with your primary care provider. Return to the emergency department immediately if your symptoms worsen or if you develop any dizziness, shortness of breath, difficulty breathing, chest pain, blurry vision, loss of vision, nausea, vomiting, abdominal pain, fever, chills, back pain, or any other complaints. <Janeen Johnson NP - Last Filed: 03/09/22 14:18> Prescriptions: No Action atorvastatin 80 mg tablet 80 mg PO DAILY Qty: 90 0RF fluoxetine 20 mg capsule 20 mg PO QAM ascorbic acid (vitamin C) 500 mg capsule PO cholecalciferol (vitamin D3) PO lamotrigine 100 mg tablet 250 mg PO BEDTIME latanoprost 0.005 % drops 1 drp ophthalmic (eye) BEDTIME trazodone 100 mg tablet 100 - 200 mg PO BEDTIME PRN (Reason: Sleep) aspirin 81 mg tablet,delayed release (DR/EC) 81 mg PO DAILY hydroxyzine HCl 25 mg tablet 12.5 - 25 mg PO DAILY PRN (Reason: Anxiety) bisacodyl [Dulcolax (bisacodyl)] 5 mg tablet,delayed release (DR/EC) 10 mg PO ONCE 1 Days Qty: 2 0RF Rx Instructions: take 2 tabs at noon the day before your colonoscopy polyethylene glycol 3350 [Miralax] 17 gram/dose powder 238 g PO ONCE Qty: 238 0RF Rx Instructions: As directed by gastroenterology department at [facility] polyethylene glycol 3350 [Miralax] 17 gram/dose powder 17 g PO DAILY Qty: 510 2RF docusate sodium 100 mg capsule 100 mg PO BEDTIME Qty: 90 3RF <Janeen Johnson NP - Last Filed: 03/09/22 14:18> Referrals: Bonny Bueno MD [Primary Care Provider] - <Janeen Johnson NP - Last Filed: 03/09/22 14:18> Print Language: Romanian <Janeen Johnson NP - Last Filed: 03/09/22 14:18>
== END 2022-03-09 19:44 | disposition home or self-care (01) ==
PROVIDERS: Emergency Provider Student in an Organized Health Care Education/Training Program; PCP Internal Medicine
DX: M54.50 Low back pain, unspecified (principal); I48.0 Paroxysmal atrial fibrillation; Z79.82 Long term (current) use of aspirin
CPT/HCPCS: 72100; 99281; 99283

== ENCOUNTER 2022-03-22 08:51 | Outpatient (REF) | payer MEDICARE, SELFPAY ==
[2022-03-22 11:21] LABS: Alanine Aminotransferase 60 U/L (0-31); Albumin Level 4.4 g/dL (3.5-5.0); Alkaline Phosphatase 130 U/L (39-117); Aspartate Amino Transferase 35 U/L (5-31); Bilirubin Direct 0.2 mg/dL (0.0-0.5); Bilirubin Total 0.7 mg/dL (0.0-1.0); Total Protein 7.4 g/dL (6.5-8.0)
== END 2022-03-22 08:52 | disposition home or self-care (01) ==
LOC: HO.LAB 08:51
PROVIDERS: PCP Internal Medicine; Visit Provider Nurse Practitioner Family
DX: R10.9 Unspecified abdominal pain (principal); R79.89 Other specified abnormal findings of blood chemistry; K59.04 Chronic idiopathic constipation
CPT/HCPCS: 36415; 80076; 99212

== ENCOUNTER 2022-05-02 08:56 | Outpatient (REF) | payer MEDICARE, SELFPAY ==
--- NOTE | ~2022-05-02 | US_ITS ---
EXAMINATION: US COMPLETE ABDOMEN WITH LIVER ELASTOGRAPHY CLINICAL INFORMATION: Abnormal finding of blood chemistry. COMPARISON: None. TECHNIQUE: Real-time imaging of the abdominal viscera. Noninvasive ultrasound liver fibrosis assessment is performed using [employer] point quantification shear wave elastography (2D-SWE) with a C5-2 MHz transducer. Multiple elastography samples are obtained. FINDINGS: PANCREAS: Normal. The visualized pancreatic head and body are normal in appearance. The remainder of the pancreas is obscured from visualization by the overlying bowel gas. ABDOMINAL AORTA: The proximal, middle, and distal aortic segments are normal in caliber. INFERIOR VENA CAVA: Visualized portions are normal. LIVER: Normal. The liver demonstrates normal size, contour and echogenicity. No focal lesion or intrahepatic biliary duct dilatation. The right lobe measures 13.9 cm in length. The left lobe measures 10.3 cm in length. Portal flow is towards the liver (hepatopetal). Shear wave liver elastography median stiffness is 1.34 m/s (reference: normal median stiffness is 1.3 m/s or less). IQR/median stiffness to assess sampling precision is 0.11 (reference: good quality data set is IQR/median stiffness of 0.15 or less). GALLBLADDER: Normal. The gallbladder is physiologically distended without evidence of stones, sludge, polyps, wall thickening or pericholecystic fluid. COMMON BILE DUCT: Normal in caliber measuring 0.5 cm in diameter. RIGHT KIDNEY: Normal. No hydronephrosis. No renal calculi or focal parenchymal lesions. The kidney measures 11.3 cm in maximum dimension. LEFT KIDNEY: Normal. No hydronephrosis. No renal calculi or focal parenchymal lesions. The kidney measures 12.7 cm in maximum dimension. SPLEEN: Normal. The spleen measures 10.8 cm in maximum dimension. FREE FLUID: None. US/US abdomen comp w elastography IMPRESSION: Liver elastography: In the absence of other known clinical signs, measurements rule out compensated advanced chronic liver disease. If there are known clinical signs, further testing may be needed for confirmation. REFERENCE: Society of Radiologists in Ultrasound Liver Stiffness Thresholds (2019): LIVER STIFFNESS THRESHOLDS: *Liver Stiffness equal or less than 1.3 m/s: High probability of being normal. *Liver Stiffness less than 1.7 m/s: In the absence of other known clinical signs, rules out compensated advanced chronic liver disease. *Liver Stiffness 1.7-2.1 m/s: Suggestive of compensated advanced chronic liver disease but need further test for confirmation. *Liver Stiffness over 2.1 m/s: Rules in compensated advanced chronic liver disease. *Liver Stiffness over 2.4 m/s: Suggestive of clinically significant portal hypertension. QUALITY OF DATA SET: *IQR/Median value equal or less than 0.15 implies a quality data set. *IQR/Median value over 0.15 implies a poor quality data set. SIGNIFICANT CHANGE FROM PRIOR EXAM: Significant change if liver stiffness measurement is 10% or greater from prior exam. OTHER CONSIDERATIONS: The stage of liver fibrosis may be overestimated in the setting of acute hepatitis, liver inflammation, elevated liver function tests, hepatic vascular congestion, obstructive cholestasis, non-fasting state, and infiltrative diseases such as amyloidosis and lymphoma. In some patients with NAFLD, the liver stiffness thresholds for compensated advanced chronic liver disease may be lower. In causes other than viral hepatitis and NAFLD, liver stiffness thresholds are not well established.
== END 2022-05-02 08:57 | disposition home or self-care (01) ==
LOC: HO.US 08:56
PROVIDERS: PCP Internal Medicine; Visit Provider Nurse Practitioner Family
DX: R79.89 Other specified abnormal findings of blood chemistry (principal)
CPT/HCPCS: 76705; 76981

== ENCOUNTER 2022-05-20 11:27 | Outpatient (REF) | payer MEDICARE, SELFPAY ==
[2022-05-20 14:04] LABS: MANUAL DIFF FLAG NO
[2022-05-20 14:10] LABS: Basophils Percent Auto 0.5 % (0-2); Eosinophils Absolute Auto 0.3 X10*3/uL (0.0-0.4); Eosinophils Percent Auto 5.3 % (0-4); Hemoglobin 14.3 g/dl (12.0-16.0); Imm Gran Abs Auto 0.04 X10*3/uL (0.00-0.03); Imm Gran Pct Auto 0.7 % (0.0-0.4); Lymphocytes Absolute Auto 1.6 X10*3/uL (1.2-4.9); Lymphocytes Percent Auto 27.9 % (20-40); Mean Corpuscular HGB Conc 33.3 g/dl (31.0-35.0); Mean Corpuscular Hemoglobin 30.4 pg (27.0-33.0); Mean Corpuscular Volume 91.5 fL (80.0-98.0); Mean Platelet Volume 10.5 fL (9.4-12.3); Monocytes Absolute Auto 0.6 X10*3/uL (0.1-1.2); Neutrophils Absolute Auto 3.3 x10*3/uL (2.0-8.3); Neutrophils Percent Auto 55.6 % (45-73); Platelet Count 201 X10*3/uL (160-400); Red Cell Distribution Width 12.6 % (11.0-16.0); White Blood Count 5.9 X10*3/uL (4.8-10.8)
[2022-05-20 14:15] LABS: Prothrombin Time 10.9 SEC (10.0-13.1)
[2022-05-20 14:27] LABS: Alanine Aminotransferase 39 U/L (0-31); Albumin Level 4.3 g/dL (3.5-5.0); Alkaline Phosphatase 90 U/L (39-117); Anion Gap 11 (12-20); Aspartate Amino Transferase 26 U/L (5-31); Bilirubin Total 0.6 mg/dL (0.0-1.0); Blood Urea Nitrogen 13 mg/dL (9-16); Calcium 10.2 mg/dL (8.4-10.2); Carbon Dioxide 31 mmol/L (22-29); Chloride 104 mmol/L (96-108); Estimated Glomerular Filt Rate > 60; Gamma Glutamyl Transpeptidase 48 U/L (7-33); Glucose Random 98 mg/dL (60-115); Potassium 4.7 mmol/L (3.3-5.1); Sodium 141 mmol/L (135-145); Total Protein 7.2 g/dL (6.5-8.0)
[2022-05-20 14:58] LABS: Ferritin 129 ng/mL (10-250); Folate 18.9 ng/mL (> or = 4.0); TSH reflex Free T4 1.54 uIU/mL (0.32-4.0); Vitamin B12 839 pg/mL (200-900); Vitamin D 25-OH Total 55.1 ng/mL (>30)
[2022-05-21 14:28] LABS: Ceruloplasmin 32 mg/dL (18-53)
[2022-05-23 04:20] LABS: HBS Num1 0.13 mIU/mL (0-7.99); HBc Num1 0.33 S/CO (0.00-0.79); HBsAGNum1 0.29 S/CO (0.00-0.99); HIV AB/AG Nonreactive (Nonreactive); HIV Num 1 0.07 S/CO (0.00-0.99); Hepatitis B Core Antibody Nonreactive (Nonreactive); Hepatitis B Surface Antigen Negative (Negative); ~HepC Num1 0.09 S/CO (0.00-0.79); ~Hepatitis B Surface Antibody NONREACTIVE (Nonreactive); ~Hepatitis C Antibody Nonreactive (Nonreactive)
[2022-05-23 14:08] LABS: Alpha Fetoprotein 5.4 ng/mL
[2022-05-24 23:19] LABS: Smooth Muscle Antibody <20 U (<20)
[2022-05-25 11:49] LABS: Mitochondrial Antibodies POSITIVE (NEGATIVE)
== END 2022-05-20 11:28 | disposition home or self-care (01) ==
LOC: HO.HMGCLDS 11:27
PROVIDERS: PCP Internal Medicine; Visit Provider Internal Medicine
DX: Z00.00 Encounter for general adult medical examination without abnormal findings (principal); Z11.4 Encounter for screening for human immunodeficiency virus [HIV]; E55.9 Vitamin D deficiency, unspecified; E78.5 Hyperlipidemia, unspecified; R79.89 Other specified abnormal findings of blood chemistry; E53.8 Deficiency of other specified B group vitamins; Z78.0 Asymptomatic menopausal state
CPT/HCPCS: 36415; 80053; 82105; 82306; 82390; 82607; 82728; 82746; 82977; 84443; 85025; 85610; 86015; 86255; 86256; 86704; 86706; 86803; 87340; 87389

== ENCOUNTER 2022-05-30 10:48 | Outpatient (REF) | payer MEDICARE, SELFPAY ==
[2022-05-30 14:08] LABS: INTERNATIONAL NORM RATIO 1.2 (0.9-1.1); Prothrombin Time 14.1 SEC (10.0-13.1)
== END 2022-05-30 10:49 | disposition home or self-care (01) ==
LOC: HO.HMGCLR 10:48
PROVIDERS: Internal Medicine; PCP Internal Medicine; Visit Provider Nurse Practitioner Family
DX: Z79.01 Long term (current) use of anticoagulants (principal)
CPT/HCPCS: 36415; 85610

== ENCOUNTER 2022-06-01 10:52 | Outpatient (REF) | payer MEDICARE, SELFPAY ==
--- NOTE | ~2022-06-01 | MM_ITS ---
EXAMINATION: BONE DENSITOMETRY CLINICAL INDICATION: Asymptomatic menopausal state. COMPARISON: None (current study represents initial baseline exam). TECHNIQUE: Using a [employer] DXA System (software version: 13.1) manufactured by [employer], dual-energy x-ray absorptiometry was performed of the lumbar spine and left hip. The images are of good technical quality. Summary results are attached. FINDINGS: AP SPINE L1-L4: BMD 1.188 g/cm2, Z-score 0.8, T-score 0.1, normal. LEFT FEMUR, NECK: BMD 1.001 g/cm2, Z-score 0.7, T-score -0.3, normal. LEFT FEMUR, TOTAL: BMD 1.092 g/cm2, Z-score 1.3, T-score 0.7, normal. IDENTIFIED RISK FACTORS: Recurrent falls. Low calcium intake. Menopause. HISTORY OF FRACTURE: None listed. MEDICATIONS: Calcium supplement and/or multivitamin. Vitamin D. MM/XR DEXA axial skeleton IMPRESSION: 1. DIAGNOSIS: Normal bone density based on the lowest T-score value of -0.3 in the femoral neck applying World Health Organization criteria. 2. 10-YEAR FRACTURE RISK PREDICTION, FRAX: According to the guidelines, FRAX calculation should only be performed on patients in the osteopenia bone density category.?Therefore, FRAX was not performed on this patient.? 3. Treatment Recommendations: NOF guidelines recommend consideration for treatment in postmenopausal women and men age 50 and older presenting with the following: -A hip or vertebral (clinical or morphometric) fracture. -T-score less than or equal to -2.5 at the femoral neck or spine after appropriate evaluation to exclude secondary causes. -Low bone mass at the hip or spine and a 10-year fracture probability by FRAX of greater than or equal to 3% for hip fracture or greater than or equal to 20% for major osteoporotic fracture based on the [place] adapted WHO algorithm. 4. Other Recommendations: All treatment decisions require clinical judgment and consideration of individual patient factors, including patient preferences, comorbidities, previous drug use, risk factors not captured in the FRAX model (e.g. frailty, falls, vitamin D deficiency, increased bone turnover, interval significant decline in bone density) and possible under or overestimation of fracture risk by FRAX. FUTURE SCAN RECOMMENDATION: People with diagnosed cases of osteoporosis or at high risk for fracture should have regular bone mineral density tests. For patients eligible for Medicare, routine testing is allowed once every 2 years. The testing frequency can be increased to one year for patients who have rapidly progressing disease, those who are receiving or discontinuing medical therapy to restore bone mass, or have additional risk factors.
--- NOTE | 2022-06-01 11:29 | HM_ITS ---
Conclusion: 1. Patient was monitored for total period of 3 days 2. Baseline was normal sinus rhythm with average heart rate of 67 beats per minute 3. Occasional PACs with total burden of 0.25% of total beats 4. 16 episodes of SVT noted, fastest at 172 beats per minute and longest of 13 beats 5. No significant pauses noted 6. No symptoms reported during the monitoring period MTDD
== END 2022-06-01 10:53 | disposition home or self-care (01) ==
LOC: HO.MAMMO 10:52
PROVIDERS: PCP Internal Medicine; Referring Provider Internal Medicine; Visit Provider Internal Medicine
DX: Z13.820 Encounter for screening for osteoporosis (principal); I48.0 Paroxysmal atrial fibrillation; Z78.0 Asymptomatic menopausal state
CPT/HCPCS: 77080; 93242

== ENCOUNTER → 2022-06-02 08:55 | Outpatient (BNVA) | payer MEDICARE, SELFPAY | PROVIDERS: PCP Internal Medicine; Visit Provider Internal Medicine | DX: I48.91 Unspecified atrial fibrillation (principal); Z79.01 Long term (current) use of anticoagulants; Z51.81 Encounter for therapeutic drug level monitoring | CPT/HCPCS: 85610; 99202 ==

== ENCOUNTER → 2022-06-06 09:08 | Outpatient (BNVA) | payer MEDICARE, SELFPAY | PROVIDERS: PCP Internal Medicine; Visit Provider Internal Medicine | DX: I48.91 Unspecified atrial fibrillation (principal); Z79.01 Long term (current) use of anticoagulants; Z51.81 Encounter for therapeutic drug level monitoring | CPT/HCPCS: 85610; 99211 ==

== ENCOUNTER → 2022-06-10 09:01 | Outpatient (BNVA) | payer MEDICARE, SELFPAY | PROVIDERS: PCP Internal Medicine; Visit Provider Internal Medicine | DX: I48.91 Unspecified atrial fibrillation (principal); Z79.01 Long term (current) use of anticoagulants; Z51.81 Encounter for therapeutic drug level monitoring | CPT/HCPCS: 85610; 99211 ==

== ENCOUNTER → 2022-06-16 08:16 | Outpatient (BNVA) | payer MEDICARE, SELFPAY | PROVIDERS: PCP Internal Medicine; Visit Provider Internal Medicine | DX: I48.91 Unspecified atrial fibrillation (principal); Z79.01 Long term (current) use of anticoagulants; Z51.81 Encounter for therapeutic drug level monitoring | CPT/HCPCS: 85610; 99211 ==

== ENCOUNTER → 2022-06-23 08:30 | Outpatient (BNVA) | payer MEDICARE, SELFPAY | PROVIDERS: PCP Internal Medicine; Visit Provider Internal Medicine | DX: I48.91 Unspecified atrial fibrillation (principal); Z79.01 Long term (current) use of anticoagulants; Z51.81 Encounter for therapeutic drug level monitoring | CPT/HCPCS: 85610; 99211 ==

== ENCOUNTER 2022-06-23 22:22 | Emergency (ER) | payer MEDICARE, SELFPAY ==
[2022-06-23 22:38] VITALS: BP 186/85; PULSE 64; RESP 18; TEMP 36.4; O2SAT 97; BMI 30.4
[2022-06-23 23:03] LABS: Appearance Urine Turbid; Color Urine Red; Glucose Urine UA Negative (Negative); Leukocyte Esterase Urine Moderate (2+) (Negative); Nitrite Urine Negative (Negative); PH 6.5 (5.0-9.0); UMIC TRIGGER UACC YES; Urine Blood Large (3+) (Negative); Urine Ketones Negative (Negative); Urine Protein 100 (2+) mg/dL (Neg-Trace)
[2022-06-23 23:07] LABS: Bacteria Urine Trace (None Seen); Hyaline Casts Urine 0-2 /LPF (0-2); RBC Urine >20 /HPF (0-2); UACC Culture Trigger YES; WBC Urine 21-50 /HPF (0-5)
--- NOTE | 2022-06-23 23:53 | ED.FEMALEGU ---
HPI - Female Genitourinary General Chief complaint: Urogenital-Female Stated complaint: Blood in urine on blood thinners Time Seen by Provider: 06/23/22 23:53 Source: patient and RN notes reviewed Mode of arrival: ambulatory Limitations: no limitations History of Present Illness HPI Narrative: 67-year-old female with past medical history significant for atrial fibrillation on Coumadin, anxiety and depression, hyperlipidemia, presents for evaluation of blood in her year. Patient reports blood in her urine for the last 2 days, it started last night and has been getting progressively worse. She reports some lower abdominal discomfort for the last 2 days as well. Denies any burning with urination Her lower abdominal discomfort is mild, for of 10. The patient had her last INR checked earlier this morning and it was 2.9 Related Data Home Medications Medication Instructions Recorded Confirmed aspirin 81 mg tablet,delayed 81 mg PO DAILY 10/01/20 06/23/22 release lamotrigine 100 mg tablet 250 mg PO BEDTIME 10/01/20 06/23/22 latanoprost 0.005 % eye drops 1 drp ophthalmic (eye) BEDTIME 10/01/20 06/23/22 trazodone 100 mg tablet 100 - 200 mg PO BEDTIME PRN Sleep 10/01/20 06/23/22 hydroxyzine HCl 25 mg tablet 12.5 - 25 mg PO DAILY PRN Anxiety 12/16/20 06/23/22 fluoxetine 20 mg capsule 20 mg PO QAM 12/01/21 06/23/22 amoxicillin 500 mg capsule 2,000 mg PO ONCE 06/02/22 06/23/22 ascorbic acid (vitamin C) 500 mg 1,000 mg PO DAILY 06/02/22 06/23/22 capsule cholecalciferol (vitamin D3) 50 50 mcg PO DAILY 06/08/22 06/23/22 mcg (2,000 unit) capsule (Vitamin D3) [id number] 1 tab PO DAILY 06/08/22 06/23/22 tablet (Multivitamin 50 Plus tablet) Previous Rx's Medication Instructions Recorded bisacodyl 5 mg tablet,delayed 10 mg PO ONCE 1 day #2 tabs 12/20/21 release (Dulcolax (bisacodyl)) docusate sodium 100 mg capsule 100 mg PO BEDTIME #90 caps 12/20/21 polyethylene glycol 3350 17 17 g PO DAILY #510 grams 12/20/21 gram/dose oral powder (Miralax) polyethylene glycol 3350 17 238 g PO ONCE #238 grams 12/20/21 gram/dose oral powder (Miralax) metoprolol tartrate 25 mg tablet 25 mg PO BID #60 tabs 05/31/22 warfarin 2.5 mg tablet See Rx Instructions PO DAILY #90 06/21/22 tabs nitrofurantoin 100 mg PO Q12H 5 days #10 caps 06/24/22 monohydrate/macrocrystals 100 mg capsule (Macrobid) phenazopyridine 200 mg tablet 200 mg PO TID 6 doses #6 tabs 06/24/22 (Pyridium) Allergies Allergy/AdvReac Type Severity Reaction Status Date / Time oxycodone [From PERCODAN] Allergy Intermediate HIVES Verified 06/23/22 08:30 Hydrocodone-Acetaminophen AdvReac Unknown nausea and Uncoded 06/23/22 08:30 vomiting Review of Systems Constitutional: Constitutional: Reports as per HPI, Denies chills, Denies fatigue and Denies fever(s) Gastrointestinal: Gastrointestinal: Reports abdominal pain, Denies constipation and Denies vomiting Genitourinary: Genitourinary: Denies dysuria Endocrine: Endocrine: Denies fatigue [facility] Past Medical History Medical History (Updated 06/24/22 @ 00:07 by Dimas Lopez) Anxiety Chronic low back pain Depression On anticoagulant therapy On beta francisco at home PAF (paroxysmal atrial fibrillation) Surgical History History of bowel resection History of knee surgery Family History Family History Father Myocardial infarction CVD (cardiovascular disease) Mother Mental health disorder Sister Mental health disorder Social History Social History Household Members: Spouse and Family 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:: , 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, 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, 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 Do you presently have visiting nurse or other home services: No Alcohol intake: current Alcohol intake frequency: a few times a month Patient Tobacco Use Status: Never used Tobacco e-Cigarette/Vaping Use: Never Used Advance Directives: No Advance Directives Information Provided: Yes service: No Current occupational status: retired 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 Current occupational exposures/hazards: No Cognitive needs: No Hearing needs: No Vision needs: Yes Physical Exam Vital Signs: Vital Signs: Last Vital Signs Temp 97.6 F 06/23/22 22:38 Pulse 64 06/23/22 22:38 Resp 18 06/23/22 22:38 BP 186/85 H 06/23/22 22:38 Pulse Ox 97 06/23/22 22:38 O2 Del Method Room Air 06/23/22 22:38 BMI result Body Mass Index 30.4 Const: General: healthy appearing, comfortable, no acute distress, alert and awake Nutritional Appearance: well nourished Orientation/consciousness: patient oriented x3 HEENT: Head: Yes normocephalic and Yes atraumatic Throat: Yes posterior oropharynx normal Eyes: Eyelids: Yes eyelids normal Conjunctivae: conjunctivae normal Sclerae: sclerae normal Corneas: corneas normal Pupils: Equal, round and reactive pupils present EOM: EOMs intact bilaterally Neck: Neck: Yes full ROM Resp: Effort & Inspection: normal respiratory effort, able to speak in complete sentences, no audible wheezes and not labored Auscultation: clear to auscultation bilaterally Cardio: Rate: regular rate Rhythm: regular rhythm GI: Inspection: No distended Palpation (GI): Soft to palpation, not firm, Tenderness to palpation present (GI) (Mild suprapubic tenderness without guarding or rebound), no guarding and not rigid Auscultation: normoactive bowel sounds Skin: General skin exam: no rashes or lesions noted and elasticity normal Neuro: General: patient oriented x3 Cranial nerves: Yes CN's II-XII intact bilaterally, Yes Equal, round and reactive pupils present and Yes Bilaterally intact EOM present Cognition (Neuro): normal cognition Medical Decision Making Medical Decision Making MDM Narrative: Patient has mild lower abdominal discomfort with hematuria and evidence of UTI. She is on Coumadin but her INR level was checked earlier this morning and was therapeutic at 2.9. Will treat with Macrobid b.i.d. x5 days and Pyridium. Low suspicion for obstructive uropathy given the lack of lateralizing flank pain and only minimal discomfort. Patient is afebrile with stable vital signs, low suspicion for pyelonephritis Differential Diagnosis UTI Cystitis Abdominal pain Constipation Pyelonephritis Hematuria Obstructive uropathy Lab Data Labs: Lab Results 06/23/22 Range/Units 22:54 Urine Color Red A Urine Appearance Turbid Urine pH 6.5 (5.0-9.0) Ur Specific [place] 1.020 (1.005-1.025) Urine Protein 100 (2+) H (Neg-Trace) mg/dL Urine Glucose (UA) Negative (Negative) mg/dL Urine Ketones Negative (Negative) mg/dL Urine Blood Large (3+) H (Negative) Urine Nitrite Negative (Negative) Ur Leukocyte Esterase Moderate (2+) H (Negative) Urine RBC >20 H (0-2) /HPF Urine WBC 21-50 H (0-5) /HPF Ur Squamous Epith Cells 3-5 (0-2) /HPF Urine Bacteria Trace (None Seen) Hyaline Casts 0-2 (0-2) /LPF Discharge Plan Discharge Clinical Impression: Urinary tract infection Patient Disposition: Home, Self-Care Instructions: Urinary Tract Infection in Older Adults (ED) Additional Instructions: Take Macrobid twice daily for the next 5 days. Use Pyridium as directed for urinary discomfort Follow-up with your primary doctor Prescriptions: New nitrofurantoin monohyd/m-cryst [Macrobid] 100 mg capsule 100 mg PO Q12H 5 Days Qty: 10 0RF Rx Instructions: must administer with a meal/food phenazopyridine [Pyridium] 200 mg tablet 200 mg PO TID Qty: 6 0RF No Action metoprolol tartrate 25 mg tablet 25 mg PO BID Qty: 60 0RF warfarin 2.5 mg tablet See Rx Instructions PO DAILY Qty: 90 3RF Protocol: Dose Management Condition: Monday (Week One) Dose/Route: 5 mg Instruction: 2 x 2.5 mg tablets Condition: Monday Dose/Route: 7.5 mg Instruction: 3 x 2.5 mg tablets Condition: Monday Dose/Route: 5 mg Instruction: 2 x 2.5 mg tablets Condition: Monday Dose/Route: 7.5 mg Instruction: 3 x 2.5 mg tablets Condition: Dose/Route: 5 mg Instruction: 2 x 2.5 mg tablets Condition: Monday Dose/Route: 7.5 mg Instruction: 3 x 2.5 mg tablets Condition: Monday Dose/Route: 5 mg Instruction: 2 x 2.5 mg tablets Condition: Monday (Week Two) Dose/Route: 5 mg Instruction: 2 x 2.5 mg tablets Condition: Monday Dose/Route: 7.5 mg Instruction: 3 x 2.5 mg tablets Condition: Monday Dose/Route: 5 mg Instruction: 2 x 2.5 mg tablets Condition: Monday Dose/Route: 7.5 mg Instruction: 3 x 2.5 mg tablets Condition: Dose/Route: 5 mg Instruction: 2 x 2.5 mg tablets Condition: Monday Dose/Route: 7.5 mg Instruction: 3 x 2.5 mg tablets Condition: Monday Dose/Route: 5 mg Instruction: 2 x 2.5 mg tablets Protocol Text: Adjustment Start Date: 06/23/22 INR Value: 2.9 INR Date: 06/23/22 Recheck Date: 06/30/22 Additional Instructions: INR is in range continue same dosing ok for a green today and can have greens 2-3 times weekly, watch serving size Rx Instructions: Take 2 tabs daily, additional doses pending INR results orally daily; cholecalciferol (vitamin D3) [Vitamin D3] 50 mcg (2,000 unit) Capsule 50 mcg PO DAILY Multivitamin 50 Plus Tablet 1 tab PO DAILY fluoxetine 20 mg capsule 20 mg PO QAM lamotrigine 100 mg tablet 250 mg PO BEDTIME latanoprost 0.005 % drops 1 drp ophthalmic (eye) BEDTIME trazodone 100 mg tablet 100 - 200 mg PO BEDTIME PRN (Reason: Sleep) aspirin 81 mg tablet,delayed release (DR/EC) 81 mg PO DAILY hydroxyzine HCl 25 mg tablet 12.5 - 25 mg PO DAILY PRN (Reason: Anxiety) bisacodyl [Dulcolax (bisacodyl)] 5 mg tablet,delayed release (DR/EC) 10 mg PO ONCE 1 Days Qty: 2 0RF Rx Instructions: take 2 tabs at noon the day before your colonoscopy polyethylene glycol 3350 [Miralax] 17 gram/dose powder 238 g PO ONCE Qty: 238 0RF Rx Instructions: As directed by gastroenterology department at [facility] polyethylene glycol 3350 [Miralax] 17 gram/dose powder 17 g PO DAILY Qty: 510 2RF docusate sodium 100 mg capsule 100 mg PO BEDTIME Qty: 90 3RF amoxicillin 500 mg capsule 2,000 mg PO ONCE ascorbic acid (vitamin C) 500 mg capsule 1,000 mg PO DAILY
== END 2022-06-24 00:14 | disposition home or self-care (01) ==
PROVIDERS: Emergency Provider Emergency Medicine Emergency Medical Services; PCP Internal Medicine
DX: N39.0 Urinary tract infection, site not specified (principal); R10.30 Lower abdominal pain, unspecified
CPT/HCPCS: 81001; 81003; 87086; 99282; 99283

== ENCOUNTER 2022-06-28 17:24 | Emergency (ER) | payer MEDICARE, SELFPAY ==
--- NOTE | ~2022-06-28 | CT_ITS ---
EXAMINATION: CT ABDOMEN AND PELVIS WITHOUT CONTRAST CLINICAL INFORMATION: Hematuria COMPARISON: Ultrasound of abdomen 05/22/2022. TECHNIQUE: Multidetector volumetric imaging was performed from the superior aspect of the liver through the pubic symphysis. Sagittal and coronal reformatted images were obtained on the technologist's workstation. This CT examination was performed using dose optimization techniques as appropriate, variously including the following: *Automated exposure control *Adjustment of mA and/or kV according to patient size (this includes techniques or standardized protocols for targeted exams where dose is matched to indication/reason for exam; i.e. extremities or head) *Use of iterative reconstruction technique DLP: 664 mGy-cm FINDINGS: LUNG BASES: The visualized lung bases are unremarkable. LIVER, GALLBLADDER, AND BILIARY TREE: The liver is normal in size, shape, and attenuation. No focal hepatic lesion or biliary ductal dilatation is present. The gallbladder is unremarkable with no evidence of radiopaque gallstones, gallbladder wall thickening, or obvious pericholecystic inflammatory changes. PANCREAS: Unremarkable. SPLEEN: Unremarkable. ADRENAL GLANDS: Unremarkable. KIDNEYS AND URETERS: The kidneys and ureter are normal. No calculus or hydronephrosis. BLADDER: Unremarkable. GASTROINTESTINAL TRACT: The small and large bowel are unremarkable. The appendix is unremarkable. ABDOMINAL WALL: No significant hernia is appreciated. LYMPH NODES: Normal. VASCULAR: Scattered vascular calcifications of the wall of aorta and iliac arteries. There is no aneurysm. PELVIC VISCERA: The uterus is anteverted. Calcifications in the fundus consistent with calcified fibroid. No adnexal abnormality. No fluid in the cul-de-sac. OSSEOUS STRUCTURES: Multilevel degenerative spondylosis spine. Central depression superior endplate of L4 is chronic. There is no acute osseous abnormality. CT/CT abdomen pelvis wo IV con IMPRESSION: No significant abnormality. Fleischner guidelines were followed.
[2022-06-28 17:46] VITALS: BP 143/82; PULSE 75; RESP 18; TEMP 36.9; O2SAT 95; BMI 27.3
--- NOTE | 2022-06-28 17:48 | ED_ITS ---
HPI - General Adult General Chief complaint: Urogenital-Female <SETH Parker - Last Filed: 06/28/22 17:49> Stated complaint: blood in urine <SETH Parker - Last Filed: 06/28/22 17:49> Time Seen by Provider: 06/28/22 23:10 <SETH Parker - Last Filed: 06/28/22 17:49> Source: patient <Brian Guzman MD - Last Filed: 06/28/22 23:51> Mode of arrival: ambulatory <Brian Guzman MD - Last Filed: 06/28/22 23:51> Limitations: no limitations <Brian Guzman MD - Last Filed: 06/28/22 23:51> History of Present Illness HPI narrative: Patient comes here for blood in the urine taking Coumadin for AFib has UTI diagnosed 06/23 with negative urine culture on Pyridium and Macrobid last INR was 2.9. Complaining of lower abdominal pain and blood in the urine today no flank pain no melena or blood in the stool no fever chills no nausea vomiting <Brian Guzman MD - Last Filed: 06/28/22 23:51> Related Data Home medications: Home Medications Medication Instructions Recorded Confirmed aspirin 81 mg tablet,delayed 81 mg PO DAILY 10/01/20 06/23/22 release lamotrigine 100 mg tablet 250 mg PO BEDTIME 10/01/20 06/23/22 latanoprost 0.005 % eye drops 1 drp ophthalmic (eye) BEDTIME 10/01/20 06/23/22 trazodone 100 mg tablet 100 - 200 mg PO BEDTIME PRN Sleep 10/01/20 06/23/22 hydroxyzine HCl 25 mg tablet 12.5 - 25 mg PO DAILY PRN Anxiety 12/16/20 06/23/22 fluoxetine 20 mg capsule 20 mg PO QAM 12/01/21 06/23/22 amoxicillin 500 mg capsule 2,000 mg PO ONCE 06/02/22 06/23/22 ascorbic acid (vitamin C) 500 mg 1,000 mg PO DAILY 06/02/22 06/23/22 capsule cholecalciferol (vitamin D3) 50 50 mcg PO DAILY 06/08/22 06/23/22 mcg (2,000 unit) capsule (Vitamin D3) [id number] 1 tab PO DAILY 06/08/22 06/23/22 tablet (Multivitamin 50 Plus tablet) Previous Rx's Medication Instructions Recorded bisacodyl 5 mg tablet,delayed 10 mg PO ONCE 1 day #2 tabs 12/20/21 release (Dulcolax (bisacodyl)) docusate sodium 100 mg capsule 100 mg PO BEDTIME #90 caps 12/20/21 polyethylene glycol 3350 17 17 g PO DAILY #510 grams 12/20/21 gram/dose oral powder (Miralax) polyethylene glycol 3350 17 238 g PO ONCE #238 grams 12/20/21 gram/dose oral powder (Miralax) metoprolol tartrate 25 mg tablet 25 mg PO BID #60 tabs 05/31/22 warfarin 2.5 mg tablet See Rx Instructions PO DAILY #90 06/21/22 tabs nitrofurantoin 100 mg PO Q12H 5 days #10 caps 06/24/22 monohydrate/macrocrystals 100 mg capsule (Macrobid) phenazopyridine 200 mg tablet 200 mg PO TID 6 doses #6 tabs 06/24/22 (Pyridium) <SETH Parker - Last Filed: 06/28/22 17:49> Allergies/adverse reactions: Allergies Allergy/AdvReac Type Severity Reaction Status Date / Time oxycodone [From PERCODAN] Allergy Intermediate HIVES Verified 06/23/22 08:30 Hydrocodone-Acetaminophen AdvReac Unknown nausea and Uncoded 06/23/22 08:30 vomiting <SETH Parker - Last Filed: 06/28/22 17:49> Review of Systems Review of Systems: Yes all other systems are reviewed and are negative <Brian Guzman MD - Last Filed: 06/28/22 23:51> [facility] Past Medical History Medical History: Medical History Anxiety Chronic low back pain Depression On anticoagulant therapy On beta francisco at home PAF (paroxysmal atrial fibrillation) <SETH Parker - Last Filed: 06/28/22 17:49> Surgical History: Surgical History History of bowel resection History of knee surgery <SETH Parker - Last Filed: 06/28/22 17:49> Family History Family History: Family History Father Myocardial infarction CVD (cardiovascular disease) Mother Mental health disorder Sister Mental health disorder <SETH Parker - Last Filed: 06/28/22 17:49> Social History Social History: Social History Household Members: Spouse and Family 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:: , 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, 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, 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 Do you presently have visiting nurse or other home services: No Alcohol intake: current Alcohol intake frequency: a few times a month Patient Tobacco Use Status: Never used Tobacco e-Cigarette/Vaping Use: Never Used Advance Directives: No Advance Directives Information Provided: Yes service: No Current occupational status: retired 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 Current occupational exposures/hazards: No Cognitive needs: No Hearing needs: No Vision needs: Yes <SETH Parker - Last Filed: 06/28/22 17:49> Physical Exam ED Vital Signs: Vital Signs - 24 hr 06/28/22 17:46 06/28/22 23:37 Temperature 98.5 F 98.2 F Pulse Rate 75 66 Respiratory Rate 18 18 Blood Pressure 143/82 H 156/84 H Pulse Oximetry 95 97 Oxygen Delivery Method Room Air Room Air BMI result Body Mass Index 27.3 <SETH Parker - Last Filed: 06/28/22 17:49> Vital Signs - 24 hr 06/28/22 17:46 06/28/22 23:37 Temperature 98.5 F 98.2 F Pulse Rate 75 66 Respiratory Rate 18 18 Blood Pressure 143/82 H 156/84 H Pulse Oximetry 95 97 Oxygen Delivery Method Room Air Room Air BMI result Body Mass Index 27.3 <Brian Guzman MD - Last Filed: 06/28/22 23:51> Appearance: Alert. Oriented X3. No acute distress. Eyes: PERRLA, No Nystagmus ENT: Pharynx normal. Oral Mucosa moist Neck: Normal inspection. Neck supple. CVS: Normal heart rate and rhythm. Pulses normal. Respiratory: No respiratory distress. Equal air entry bilateral, no wheezing/rales/rhonchi Abdomen: Soft , mild suprapubic tenderness. Bowel sounds are present, no mass palpable, no CVA tenderness Skin: Skin warm and dry. Normal skin color. Normal skin turgor. Extremities: No lower extremity edema. No calf tenderness Neuro: Oriented X 3. No motor deficit. <Brian Guzman MD - Last Filed: 06/28/22 23:51> Course Course Course Narrative: This is an RME: Additional HPI, ROS, PE not included below will be deferred to primary provider. 67-year-old female presents with left-sided flank pain, hematuria, fatigue, malaise x5 days. Unresolving. Patient is currently taking Macrobid and Pyridium. Physical exam with left-sided flank pain on palpation. Plan labs, urine, imaging. <SETH Parker - Last Filed: 06/28/22 17:49> Medications Administered Discontinued Medications Generic Name Dose Route Start Last Admin Trade Name Freq PRN Reason Stop Dose Admin Tramadol HCl 50 mg 06/28/22 23:29 06/28/22 23:34 Tramadol Hcl 50 Mg Tablet PO 06/28/22 23:30 50 mg ONCE ONE Administration <SETH Parker - Last Filed: 06/28/22 17:49> Medications Administered Discontinued Medications Generic Name Dose Route Start Last Admin Trade Name Freq PRN Reason Stop Dose Admin Tramadol HCl 50 mg 06/28/22 23:29 06/28/22 23:34 Tramadol Hcl 50 Mg Tablet PO 06/28/22 23:30 50 mg ONCE ONE Administration <Brian Guzman MD - Last Filed: 06/28/22 23:51> Medical Decision Making Medical Decision Making [facility] Narrative: Patient Coumadin with mild hematuria advised to stop hold the Coumadin tonight drink plenty of fluids and follow with PCP if bleeding continues follow- up with urologist <Brian Guzman MD - Last Filed: 06/28/22 23:51> Lab Data [facility] Lab Attestation statement: I reviewed the patient's lab results. <Brian Guzman MD - Last Filed: 06/28/22 23:51> Result Diagrams: 06/28/22 17:53 06/28/22 17:53 <SETH Parker - Last Filed: 06/28/22 17:49> Labs: Lab Results 06/28/22 06/28/22 06/28/22 Range/Units 17:53 17:53 17:59 WBC 7.5 (4.8-10.8) X10*3/uL RBC 4.82 (4.20-5.50) X10*6/uL Hgb 14.7 (12.0-16.0) g/dl Hct 43.8 (37.0-47.0) % MCV 90.9 (80.0-98.0) fL MCH 30.5 (27.0-33.0) pg MCHC 33.6 (31.0-35.0) g/dl RDW 12.5 (11.0-16.0) % Plt Count 222 (160-400) X10*3/uL MPV 9.9 (9.4-12.3) fL Immature Gran % (Auto) 0.3 (0.0-0.4) % Neut % (Auto) 52.8 (45-73) % Lymph % (Auto) 32.3 (20-40) % [place] % (Auto) 9.3 (2-11) % Eos % (Auto) 4.8 H (0-4) % Baso % (Auto) 0.5 (0-2) % Lymph # (Auto) 2.4 (1.2-4.9) X10*3/uL [place] # (Auto) 0.7 (0.1-1.2) X10*3/uL Eos # (Auto) 0.4 (0.0-0.4) X10*3/uL Baso # (Auto) 0.0 (0.0-0.2) X10*3/uL Abs Immat Gran (auto) 0.02 (0.00-0.03) X10*3/uL Absolute Neuts (auto) 4.0 (2.0-8.3) x10*3/uL Absolute Nucleated RBC 0.000 (0.0-0.012) X10*3/uL Nucleated RBC % (auto) 0.0 (0.0-0.2) /100WBC Sodium 142 (135-145) mmol/L Potassium 4.7 (3.3-5.1) mmol/L Chloride 103 (96-108) mmol/L Carbon Dioxide 30 H (22-29) mmol/L Anion Gap 14 (12-20) BUN 15 (9-16) mg/dL Creatinine 0.81 (0.5-1.4) mg/dL Estim Creat Clear Calc 76.5 Estimated GFR > 60 Random Glucose 90 (60-115) mg/dL Calcium 9.8 (8.4-10.2) mg/dL Total Bilirubin 0.5 (0.0-1.0) mg/dL AST 23 (5-31) U/L ALT 24 (0-31) U/L Alkaline Phosphatase 96 (39-117) U/L Total Protein 7.3 (6.5-8.0) g/dL Albumin 4.4 (3.5-5.0) g/dL Lipase 18 (8-78) U/L Urine Color Red A Urine Appearance Clear Urine pH 6.0 (5.0-9.0) Ur Specific [place] 1.010 (1.005-1.025) Urine Protein 30 (1+) H (Neg-Trace) mg/dL Urine Glucose (UA) Negative (Negative) mg/dL Urine Ketones Negative (Negative) mg/dL Urine Blood Large (3+) H (Negative) Urine Nitrite Negative (Negative) Ur Leukocyte Esterase Trace H (Negative) Urine RBC >20 H (0-2) /HPF Urine WBC 0-5 (0-5) /HPF Ur Squamous Epith Cells 0-2 (0-2) /HPF Urine Bacteria None Seen (None Seen) Hyaline Casts 0-2 (0-2) /LPF <SETH Parker - Last Filed: 06/28/22 17:49> Lab Results 06/28/22 06/28/22 06/28/22 Range/Units 17:53 17:53 17:59 WBC 7.5 (4.8-10.8) X10*3/uL RBC 4.82 (4.20-5.50) X10*6/uL Hgb 14.7 (12.0-16.0) g/dl Hct 43.8 (37.0-47.0) % MCV 90.9 (80.0-98.0) fL MCH 30.5 (27.0-33.0) pg MCHC 33.6 (31.0-35.0) g/dl RDW 12.5 (11.0-16.0) % Plt Count 222 (160-400) X10*3/uL MPV 9.9 (9.4-12.3) fL Immature Gran % (Auto) 0.3 (0.0-0.4) % Neut % (Auto) 52.8 (45-73) % Lymph % (Auto) 32.3 (20-40) % [place] % (Auto) 9.3 (2-11) % Eos % (Auto) 4.8 H (0-4) % Baso % (Auto) 0.5 (0-2) % Lymph # (Auto) 2.4 (1.2-4.9) X10*3/uL [place] # (Auto) 0.7 (0.1-1.2) X10*3/uL Eos # (Auto) 0.4 (0.0-0.4) X10*3/uL Baso # (Auto) 0.0 (0.0-0.2) X10*3/uL Abs Immat Gran (auto) 0.02 (0.00-0.03) X10*3/uL Absolute Neuts (auto) 4.0 (2.0-8.3) x10*3/uL Absolute Nucleated RBC 0.000 (0.0-0.012) X10*3/uL Nucleated RBC % (auto) 0.0 (0.0-0.2) /100WBC Sodium 142 (135-145) mmol/L Potassium 4.7 (3.3-5.1) mmol/L Chloride 103 (96-108) mmol/L Carbon Dioxide 30 H (22-29) mmol/L Anion Gap 14 (12-20) BUN 15 (9-16) mg/dL Creatinine 0.81 (0.5-1.4) mg/dL Estim Creat Clear Calc 76.5 Estimated GFR > 60 Random Glucose 90 (60-115) mg/dL Calcium 9.8 (8.4-10.2) mg/dL Total Bilirubin 0.5 (0.0-1.0) mg/dL AST 23 (5-31) U/L ALT 24 (0-31) U/L Alkaline Phosphatase 96 (39-117) U/L Total Protein 7.3 (6.5-8.0) g/dL Albumin 4.4 (3.5-5.0) g/dL Lipase 18 (8-78) U/L Urine Color Red A Urine Appearance Clear Urine pH 6.0 (5.0-9.0) Ur Specific [place] 1.010 (1.005-1.025) Urine Protein 30 (1+) H (Neg-Trace) mg/dL Urine Glucose (UA) Negative (Negative) mg/dL Urine Ketones Negative (Negative) mg/dL Urine Blood Large (3+) H (Negative) Urine Nitrite Negative (Negative) Ur Leukocyte Esterase Trace H (Negative) Urine RBC >20 H (0-2) /HPF Urine WBC 0-5 (0-5) /HPF Ur Squamous Epith Cells 0-2 (0-2) /HPF Urine Bacteria None Seen (None Seen) Hyaline Casts 0-2 (0-2) /LPF <Brian Guzman MD - Last Filed: 06/28/22 23:51> Discharge Plan Discharge Clinical Impression: Hematuria due to cystitis <SETH Parker - Last Filed: 06/28/22 17:49> Patient Disposition: Home, Self-Care <SETH Parker - Last Filed: 06/28/22 17:49> Instructions: Urinary Tract Infection in Women (ED), Hematuria (ED) <SETH Parker - Last Filed: 06/28/22 17:49> Additional Instructions: Drink plenty of fluids Hold Coumadin for 1-2 days until urine clears up Follow with urology if bleeding continues for further evaluate <SETH Parker - Last Filed: 06/28/22 17:49> Prescriptions: No Action metoprolol tartrate 25 mg tablet 25 mg PO BID Qty: 60 0RF warfarin 2.5 mg tablet See Rx Instructions PO DAILY Qty: 90 3RF Protocol: Dose Management Condition: Monday (Week One) Dose/Route: 5 mg Instruction: 2 x 2.5 mg tablets Condition: Monday Dose/Route: 7.5 mg Instruction: 3 x 2.5 mg tablets Condition: Monday Dose/Route: 5 mg Instruction: 2 x 2.5 mg tablets Condition: Monday Dose/Route: 7.5 mg Instruction: 3 x 2.5 mg tablets Condition: Dose/Route: 5 mg Instruction: 2 x 2.5 mg tablets Condition: Monday Dose/Route: 7.5 mg Instruction: 3 x 2.5 mg tablets Condition: Monday Dose/Route: 5 mg Instruction: 2 x 2.5 mg tablets Condition: Monday (Week Two) Dose/Route: 5 mg Instruction: 2 x 2.5 mg tablets Condition: Monday Dose/Route: 7.5 mg Instruction: 3 x 2.5 mg tablets Condition: Monday Dose/Route: 5 mg Instruction: 2 x 2.5 mg tablets Condition: Monday Dose/Route: 7.5 mg Instruction: 3 x 2.5 mg tablets Condition: Dose/Route: 5 mg Instruction: 2 x 2.5 mg tablets Condition: Monday Dose/Route: 7.5 mg Instruction: 3 x 2.5 mg tablets Condition: Monday Dose/Route: 5 mg Instruction: 2 x 2.5 mg tablets Protocol Text: Adjustment Start Date: 06/23/22 INR Value: 2.9 INR Date: 06/23/22 Recheck Date: 06/30/22 Additional Instructions: INR is in range continue same dosing ok for a green today and can have greens 2-3 times weekly, watch serving size Rx Instructions: Take 2 tabs daily, additional doses pending INR results orally daily; cholecalciferol (vitamin D3) [Vitamin D3] 50 mcg (2,000 unit) Capsule 50 mcg PO DAILY Multivitamin 50 Plus Tablet 1 tab PO DAILY nitrofurantoin monohyd/m-cryst [Macrobid] 100 mg capsule 100 mg PO Q12H 5 Days Qty: 10 0RF Rx Instructions: must administer with a meal/food phenazopyridine [Pyridium] 200 mg tablet 200 mg PO TID Qty: 6 0RF fluoxetine 20 mg capsule 20 mg PO QAM lamotrigine 100 mg tablet 250 mg PO BEDTIME latanoprost 0.005 % drops 1 drp ophthalmic (eye) BEDTIME trazodone 100 mg tablet 100 - 200 mg PO BEDTIME PRN (Reason: Sleep) aspirin 81 mg tablet,delayed release (DR/EC) 81 mg PO DAILY hydroxyzine HCl 25 mg tablet 12.5 - 25 mg PO DAILY PRN (Reason: Anxiety) bisacodyl [Dulcolax (bisacodyl)] 5 mg tablet,delayed release (DR/EC) 10 mg PO ONCE 1 Days Qty: 2 0RF Rx Instructions: take 2 tabs at noon the day before your colonoscopy polyethylene glycol 3350 [Miralax] 17 gram/dose powder 238 g PO ONCE Qty: 238 0RF Rx Instructions: As directed by gastroenterology department at [facility] polyethylene glycol 3350 [Miralax] 17 gram/dose powder 17 g PO DAILY Qty: 510 2RF docusate sodium 100 mg capsule 100 mg PO BEDTIME Qty: 90 3RF amoxicillin 500 mg capsule 2,000 mg PO ONCE ascorbic acid (vitamin C) 500 mg capsule 1,000 mg PO DAILY <SETH Parker - Last Filed: 06/28/22 17:49> Referrals: Randal Fabian MD [Physician] - 1 week <SETH Parker - Last Filed: 06/28/22 17:49>
[2022-06-28 18:04] LABS: MANUAL DIFF FLAG NO
[2022-06-28 18:13] LABS: Basophils Percent Auto 0.5 % (0-2); Eosinophils Absolute Auto 0.4 X10*3/uL (0.0-0.4); Eosinophils Percent Auto 4.8 % (0-4); Hematocrit 43.8 % (37.0-47.0); Hemoglobin 14.7 g/dl (12.0-16.0); Imm Gran Abs Auto 0.02 X10*3/uL (0.00-0.03); Imm Gran Pct Auto 0.3 % (0.0-0.4); Lymphocytes Absolute Auto 2.4 X10*3/uL (1.2-4.9); Lymphocytes Percent Auto 32.3 % (20-40); Mean Corpuscular HGB Conc 33.6 g/dl (31.0-35.0); Mean Corpuscular Hemoglobin 30.5 pg (27.0-33.0); Mean Corpuscular Volume 90.9 fL (80.0-98.0); Mean Platelet Volume 9.9 fL (9.4-12.3); Monocytes Absolute Auto 0.7 X10*3/uL (0.1-1.2); Monocytes Percent Auto 9.3 % (2-11); Neutrophils Percent Auto 52.8 % (45-73); Platelet Count 222 X10*3/uL (160-400); Red Blood Count 4.82 X10*6/uL (4.20-5.50); Red Cell Distribution Width 12.5 % (11.0-16.0); White Blood Count 7.5 X10*3/uL (4.8-10.8)
[2022-06-28 18:25] LABS: Alanine Aminotransferase 24 U/L (0-31); Albumin Level 4.4 g/dL (3.5-5.0); Alkaline Phosphatase 96 U/L (39-117); Anion Gap 14 (12-20); Aspartate Amino Transferase 23 U/L (5-31); Bilirubin Total 0.5 mg/dL (0.0-1.0); Blood Urea Nitrogen 15 mg/dL (9-16); Calcium 9.8 mg/dL (8.4-10.2); Carbon Dioxide 30 mmol/L (22-29); Chloride 103 mmol/L (96-108); Creatinine Clr Calc Pharmacy 76.5; Estimated Glomerular Filt Rate > 60; Glucose Random 90 mg/dL (60-115); Lipase 18 U/L (8-78); Potassium 4.7 mmol/L (3.3-5.1); Sodium 142 mmol/L (135-145); Total Protein 7.3 g/dL (6.5-8.0)
[2022-06-28 18:40] LABS: Appearance Urine Clear; Color Urine Red; Glucose Urine UA Negative (Negative); Leukocyte Esterase Urine Trace (Negative); Nitrite Urine Negative (Negative); UMIC TRIGGER UACC YES; Urine Blood Large (3+) (Negative); Urine Ketones Negative (Negative); Urine Protein 30 (1+) mg/dL (Neg-Trace)
[2022-06-28 18:41] LABS: Bacteria Urine None Seen (None Seen); Hyaline Casts Urine 0-2 /LPF (0-2); RBC Urine >20 /HPF (0-2); Squamous Epithelial Cell Urine 0-2 /HPF (0-2); WBC Urine 0-5 /HPF (0-5)
[2022-06-28] MEDS: traMADoL HCL 50 MG TABLET PO (23:34)
[2022-06-28 23:37] VITALS: BP 156/84; PULSE 66; RESP 18; TEMP 36.8; O2SAT 97
--- NOTE | 2022-06-28 23:57 | PC.NURSE ---
This RN and patient had conversation regarding plan of care. Pt expressed displeasure with care and dismissal of her symptoms by the doctor. Pt reports to this RN that she feels strongly that a straight cath may help relieve some of her symptoms. This RN suggested a bladder scan and then possibly a cath. This RN spoke with Dr. Bernal who stated that there is no need for a catheter or bladder scan and to discharge the patient. This RN spoke once again with the patient and discharged patient. Pt verbalizes understanding to follow up with Dr. Boss from Urology
== END 2022-06-29 00:05 | disposition home or self-care (01) ==
PROVIDERS: Physician Assistant; Emergency Provider Internal Medicine; PCP Internal Medicine
DX: N30.91 Cystitis, unspecified with hematuria (principal); R10.30 Lower abdominal pain, unspecified; E78.5 Hyperlipidemia, unspecified; I48.0 Paroxysmal atrial fibrillation; Z79.01 Long term (current) use of anticoagulants; Z79.82 Long term (current) use of aspirin; Z79.899 Other long term (current) drug therapy
CPT/HCPCS: 36415; 74176; 80053; 81001; 83690; 85025; 99284

== ENCOUNTER → 2022-06-30 08:25 | Outpatient (BNVA) | payer MEDICARE, SELFPAY | PROVIDERS: PCP Internal Medicine; Visit Provider Internal Medicine | DX: I48.91 Unspecified atrial fibrillation (principal); Z79.01 Long term (current) use of anticoagulants; Z51.81 Encounter for therapeutic drug level monitoring | CPT/HCPCS: 85610; 99211 ==

== ENCOUNTER 2022-07-01 08:31 | Outpatient (REF) | payer MEDICARE, SELFPAY ==
[2022-07-01 11:52] LABS: Appearance Urine Clear; Color Urine Yellow; Glucose Urine UA Negative (Negative); Leukocyte Esterase Urine Small (1+) (Negative); Nitrite Urine Negative (Negative); PH 5.5 (5.0-9.0); Specific Gravity - Urine 1.015 (1.005-1.025); UMIC TRIGGER UA YES; Urine Blood Large (3+) (Negative); Urine Ketones Negative (Negative); Urine Protein Trace mg/dL (Neg-Trace)
[2022-07-01 11:56] LABS: Bacteria Urine None Seen (None Seen); Hyaline Casts Urine 0-2 /LPF (0-2); RBC Urine >20 /HPF (0-2)
== END 2022-07-01 08:32 | disposition home or self-care (01) ==
LOC: HO.HMGCLDS 08:31
PROVIDERS: PCP Internal Medicine; Visit Provider Internal Medicine
DX: R30.0 Dysuria (principal)
CPT/HCPCS: 81001; 87086

== ENCOUNTER → 2022-07-06 08:03 | Outpatient (BNVA) | payer MEDICARE, SELFPAY | PROVIDERS: PCP Internal Medicine; Visit Provider Internal Medicine | DX: I48.91 Unspecified atrial fibrillation (principal); Z51.81 Encounter for therapeutic drug level monitoring; Z79.01 Long term (current) use of anticoagulants | CPT/HCPCS: 85610; 99211 ==

== ENCOUNTER 2022-07-18 08:48 | Outpatient (REF) | payer MEDICARE, SELFPAY ==
[2022-07-18 11:53] LABS: INTERNATIONAL NORM RATIO 1.4 (0.9-1.1); Prothrombin Time 15.9 SEC (10.0-13.1)
[2022-07-18 12:12] LABS: Cholesterol 342 mg/dL; HDL Cholesterol 60 mg/dL; LDL Cholesterol Calculated 249 mg/dl; Triglycerides 165 mg/dL
== END 2022-07-18 08:49 | disposition home or self-care (01) ==
LOC: HO.HMGCLDS 08:48
PROVIDERS: PCP Internal Medicine; Visit Provider Internal Medicine
DX: R30.0 Dysuria (principal); E55.9 Vitamin D deficiency, unspecified; E78.5 Hyperlipidemia, unspecified; R79.89 Other specified abnormal findings of blood chemistry; Z79.01 Long term (current) use of anticoagulants
CPT/HCPCS: 36415; 80061; 85610

== ENCOUNTER → 2022-07-20 08:20 | Outpatient (BNVA) | payer MEDICARE, SELFPAY | PROVIDERS: PCP Internal Medicine; Visit Provider Internal Medicine | DX: I48.91 Unspecified atrial fibrillation (principal); Z79.01 Long term (current) use of anticoagulants; Z51.81 Encounter for therapeutic drug level monitoring | CPT/HCPCS: 85610; 99211 ==

== ENCOUNTER → 2022-07-21 13:12 | Outpatient (BNVA) | payer MEDICARE, SELFPAY | PROVIDERS: PCP Internal Medicine; Referring Provider Internal Medicine; Visit Provider Internal Medicine | DX: Z01.810 Encounter for preprocedural cardiovascular examination (principal); I25.10 Atherosclerotic heart disease of native coronary artery without angina pectoris; I48.0 Paroxysmal atrial fibrillation; I10 Essential (primary) hypertension; E78.5 Hyperlipidemia, unspecified | CPT/HCPCS: 99212 ==

== ENCOUNTER → 2022-07-25 08:49 | Outpatient (BNVA) | payer MEDICARE, SELFPAY | PROVIDERS: PCP Internal Medicine; Visit Provider Internal Medicine | DX: I48.91 Unspecified atrial fibrillation (principal); Z79.01 Long term (current) use of anticoagulants; Z51.81 Encounter for therapeutic drug level monitoring | CPT/HCPCS: 85610; 99211 ==

== ENCOUNTER 2022-07-26 10:49 | Emergency (ER) | payer MEDICARE, SELFPAY ==
--- NOTE | ~2022-07-26 | US_ITS ---
EXAMINATION: US PELVIS LIMITED (BLADDER) CLINICAL INFORMATION: Question bladder prolapse. COMPARISON: None available. TECHNIQUE: Real-time imaging of the bladder. FINDINGS: BLADDER: Well distended without appreciable wall thickening. No significant bladder prolapse is seen. Bilateral ureteral jets are demonstrated. Prevoid bladder volume is 438 mL. Postvoid bladder volume is 47 mL. US/US bladder IMPRESSION: Unremarkable appearance of the bladder. Post void residual volume of 47 mL.
[2022-07-26 10:52] VITALS: BP 140/84; PULSE 66; RESP 18; TEMP 36.7; O2SAT 95; BMI 29.8
[2022-07-26 13:02] LABS: Hematocrit 41.9 % (37.0-47.0); Hemoglobin 14.1 g/dl (12.0-16.0); Mean Corpuscular HGB Conc 33.7 g/dl (31.0-35.0); Mean Corpuscular Volume 92.1 fL (80.0-98.0); Mean Platelet Volume 9.5 fL (9.4-12.3); Platelet Count 196 X10*3/uL (160-400); Red Blood Count 4.55 X10*6/uL (4.20-5.50); Red Cell Distribution Width 12.5 % (11.0-16.0)
[2022-07-26 13:29] LABS: Anion Gap 15 (12-20); Blood Urea Nitrogen 12 mg/dL (9-16); Calcium 10.1 mg/dL (8.4-10.2); Carbon Dioxide 28 mmol/L (22-29); Chloride 105 mmol/L (96-108); Creatinine Clr Calc Pharmacy 76.8; Estimated Glomerular Filt Rate > 60; Glucose Random 97 mg/dL (60-115); Potassium 4.6 mmol/L (3.3-5.1); Sodium 143 mmol/L (135-145)
[2022-07-26 15:23] VITALS: BP 166/85; PULSE 61; RESP 18; TEMP 36; O2SAT 95
--- NOTE | 2022-07-26 15:23 | ED.FEMALEGU ---
HPI - Female Genitourinary General Chief complaint: Urogenital-Female <SETH Richards - Last Filed: 07/26/22 15:26> Stated complaint: Prolapsed uterus <SETH Richards - Last Filed: 07/26/22 15:26> Time Seen by Provider: 07/26/22 20:56 <SETH Richards - Last Filed: 07/26/22 15:26> Source: patient, family, RN notes reviewed and old records reviewed <Dimas Lopez - Last Filed: 07/26/22 23:52> Mode of arrival: ambulatory <Dimas Lopez - Last Filed: 07/26/22 23:52> Limitations: no limitations <Dimas Lopez - Last Filed: 07/26/22 23:52> History of Present Illness HPI Narrative: 67-year-old female past medical history significant for atrial fibrillation on Coumadin, hyperlipidemia, anxiety and depression presents for evaluation of pelvic pain. Patient reports that she has had on and off pelvic pain for the last month However she states that since yesterday she has had worsening pain She states ?I can feel a bulge as if something is coming out. ? She reports blood in the urine since starting Coumadin Her pain is at worst 8 of 10 She states that she has an appointment with a urologist on Monday She does not have an OBGYN and was told that she could not be seen for 2 months Reports a previous uterine ablation but no other pelvic surgeries <Dimas Lopez - Last Filed: 07/26/22 23:52> Related Data Home medications: Home Medications Medication Instructions Recorded Confirmed lamotrigine 100 mg tablet 250 mg PO BEDTIME 10/01/20 07/25/22 latanoprost 0.005 % eye drops 1 drp ophthalmic (eye) BEDTIME 10/01/20 07/25/22 trazodone 100 mg tablet 100 - 200 mg PO BEDTIME PRN Sleep 10/01/20 07/25/22 hydroxyzine HCl 25 mg tablet 12.5 - 25 mg PO DAILY PRN Anxiety 12/16/20 07/25/22 fluoxetine 20 mg capsule 20 mg PO QAM 12/01/21 07/25/22 amoxicillin 500 mg capsule 2,000 mg PO ONCE 06/02/22 07/25/22 ascorbic acid (vitamin C) 500 mg 1,000 mg PO DAILY 06/02/22 07/25/22 capsule cholecalciferol (vitamin D3) 50 50 mcg PO DAILY 06/08/22 07/25/22 mcg (2,000 unit) capsule (Vitamin D3) [id number] 1 tab PO DAILY 06/08/22 07/25/22 tablet (Multivitamin 50 Plus tablet) albuterol sulfate 90 mcg/actuation 2 inh inhalation PRN 07/21/22 07/25/22 aerosol inhaler Previous Rx's Medication Instructions Recorded bisacodyl 5 mg tablet,delayed 10 mg PO ONCE 1 day #2 tabs 12/20/21 release (Dulcolax (bisacodyl)) docusate sodium 100 mg capsule 100 mg PO BEDTIME #90 caps 12/20/21 polyethylene glycol 3350 17 17 g PO DAILY #510 grams 12/20/21 gram/dose oral powder (Miralax) warfarin 2.5 mg tablet See Rx Instructions PO DAILY #250 06/29/22 tabs metoprolol tartrate 25 mg tablet 25 mg PO BID #60 tabs 07/15/22 rosuvastatin 40 mg tablet (Crestor) 40 mg PO DAILY #90 tabs 07/21/22 morphine 15 mg immediate release 15 mg PO Q8H PRN severe pain 07/26/22 tablet (scale score 7-10) #15 tabs <SETH Richards - Last Filed: 07/26/22 15:26> Allergies/Adverse reactions: Allergies Allergy/AdvReac Type Severity Reaction Status Date / Time oxycodone [From PERCODAN] Allergy Intermediate HIVES Verified 07/25/22 09:06 Hydrocodone-Acetaminophen AdvReac Unknown nausea and Uncoded 07/25/22 09:06 vomiting <SETH Richards - Last Filed: 07/26/22 15:26> Review of Systems Constitutional: Constitutional: Reports as per HPI, Denies chills, Denies fatigue, Denies fever(s) and Denies headache(s) <Dimas Lopez - Last Filed: 07/26/22 23:52> ENT: Denies headache(s) <Dimas Lopez - Last Filed: 07/26/22 23:52> Cardiovascular: Cardiovascular: Denies chest pain and Denies dyspnea <Dimas Lopez - Last Filed: 07/26/22 23:52> Respiratory: Respiratory: Denies cough and Denies dyspnea <Dimas Lopez - Last Filed: 07/26/22 23:52> Gastrointestinal: Gastrointestinal: Denies constipation and Denies vomiting <Dimas Lopez Last Filed: 07/26/22 23:52> Genitourinary: Genitourinary: Reports pelvic pain <Dimas Lopez - Last Filed: 07/26/22 23:52> Neurologic: Denies headache(s) and Denies focal weakness <Dimas Lopez - Last Filed: 07/26/22 23:52> Endocrine: Endocrine: Denies fatigue <Dimas Lopez Last Filed: 07/26/22 23:52> PMF Past Medical History Medical History: Medical History Anxiety Chronic low back pain Depression On anticoagulant therapy On beta francisco at home PAF (paroxysmal atrial fibrillation) <SETH Richards - Last Filed: 07/26/22 15:26> Surgical History: Surgical History History of bowel resection History of knee surgery <SETH Richards - Last Filed: 07/26/22 15:26> Family History Family History: Family History Father Myocardial infarction CVD (cardiovascular disease) Mother Mental health disorder Sister Mental health disorder <SETH Richards - Last Filed: 07/26/22 15:26> Social History Social History: Social History Household Members: Spouse and Family 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:: , 2 children, 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, 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 Do you presently have visiting nurse or other home services: No Alcohol intake: never Patient Tobacco Use Status: Never used Tobacco Smoked in Last 30 Days: No e-Cigarette/Vaping Use: Never Used Use of substances other than those prescribed or required for medical reasons: No Advance Directives: No Advance Directives Information Provided: Yes service: No Current occupational status: retired 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 Current occupational exposures/hazards: No Cognitive needs: No Hearing needs: No Vision needs: Yes <SETH Richards - Last Filed: 07/26/22 15:26> Physical Exam Vital Signs: Vital Signs: Last Vital Signs Temp 97.6 F 07/26/22 19:32 Pulse 66 07/26/22 22:58 Resp 15 07/26/22 22:58 BP 149/74 H 07/26/22 22:58 Pulse Ox 95 07/26/22 19:32 O2 Del Method Room Air, BiPAP 07/26/22 22:58 BMI result Body Mass Index 29.8 <SETH Richards - Last Filed: 07/26/22 15:26> Vital Signs: Last Vital Signs Temp 97.6 F 07/26/22 19:32 Pulse 66 07/26/22 22:58 Resp 15 07/26/22 22:58 BP 149/74 H 07/26/22 22:58 Pulse Ox 95 07/26/22 19:32 O2 Del Method Room Air, BiPAP 07/26/22 22:58 BMI result Body Mass Index 29.8 <Dimas Aly - Last Filed: 07/26/22 23:52> Const: General: healthy appearing, comfortable, no acute distress, alert and awake <Dimas Aly - Last Filed: 07/26/22 23:52> Nutritional Appearance: well nourished <Dimas Panchal - Last Filed: 07/26/22 23:52> Orientation/consciousness: patient oriented x3 <Dimas Aly - Last Filed: 07/26/22 23:52> Eyes: Eyelids: Yes eyelids normal <Dimasmeli Aly - Last Filed: 07/26/22 23:52> Conjunctivae: conjunctivae normal <Dimas GaticaGillespie - Last Filed: 07/26/22 23:52> Sclerae: sclerae normal <Dimas O - Last Filed: 07/26/22 23:52> Corneas: corneas normal <Dimas Gatica - Last Filed: 07/26/22 23:52> Pupils: Equal, round and reactive pupils present <Dimas Aly - Last Filed: 07/26/22 23:52> EOM: EOMs intact bilaterally <Dimas OFidencio - Last Filed: 07/26/22 23:52> Neck: Neck: Yes full ROM <Dimas O Last Filed: 07/26/22 23:52> Resp: Effort & Inspection: normal respiratory effort, able to speak in complete sentences, no audible wheezes and not labored <Dimas Ansley Last Filed: 07/26/22 23:52> Cardio: Rate: regular rate < Last Filed: 07/26/22 23:52> Rhythm: regular rhythm <Dimas Ansley Last Filed: 07/26/22 23:52> GI: Inspection: No distended < Last Filed: 07/26/22 23:52> Palpation (GI): Soft to palpation, not firm, nontender, no guarding and not rigid <Dimas Ansley Last Filed: 07/26/22 23:52> Auscultation: normoactive bowel sounds <Dimas O Last Filed: 07/26/22 23:52> : Other: Normal external genitalia exam. Speculum exam is remarkable for a slightly distended urethra consistent with stage I bladder prolapse <Dimas O Last Filed: 07/26/22 23:52> Skin: General skin exam: no rashes or lesions noted and elasticity normal <Dimas O Last Filed: 07/26/22 23:52> Neuro: General: patient oriented x3 <Dimas Ansley Last Filed: 07/26/22 23:52> Cranial nerves: Yes Equal, round and reactive pupils present and Yes Bilaterally intact EOM present <Dimas OFidencio - Last Filed: 07/26/22 23:52> Cognition (Neuro): normal cognition <Dimas O Last Filed: 07/26/22 23:52> Course Course Course Narrative: RME - 67 yo female presents to the ER for evaluation of pelvic pain and pressure that started 1 month ago and has gotten worse. Started having hematuria when she got started on Couamdin a month ago, was treated with abx with no improvement. 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 Pain is worse with lifting, can feel protusion from her vagina. INR 1.8 yesterday. Hematuria improved, now tea colored urine. Plan: pelvic exam in the ER, check UA <SETH Richards - Last Filed: 07/26/22 15:26> Reevaluation(s) Reevaluation #1: Patient's labs, urine unremarkable. Ultrasound of the bladder shows no significant abnormality no significant bladder prolapse. The patient will be referred to pc analyst. She reports of previous episode of similar pain but not quite as severe that she just remembered. She states ?I was told I did not have enough estrogen getting to the vaginal wall which was causing pain. ? Again, advised the patient to follow-up with OBGYN for this <Dimas Lopez - Last Filed: 07/26/22 23:52> Time: 23:47 <Dimas Lopez - Last Filed: 07/26/22 23:52> Medications Administered Discontinued Medications Generic Name Dose Route Start Last Admin Trade Name Freq PRN Reason Stop Dose Admin Morphine Sulfate 15 mg 07/26/22 21:40 07/26/22 21:50 Morphine Sulfate Immed Release 15 Mg Tablet PO 07/26/22 21:41 15 mg ONCE ONE Administration <SETH Richards - Last Filed: 07/26/22 15:26> Medications Administered Discontinued Medications Generic Name Dose Route Start Last Admin Trade Name Freq PRN Reason Stop Dose Admin Morphine Sulfate 15 mg 07/26/22 21:40 07/26/22 21:50 Morphine Sulfate Immed Release 15 Mg Tablet PO 07/26/22 21:41 15 mg ONCE ONE Administration <Dimas Lopez - Last Filed: 07/26/22 23:52> Medical Decision Making Medical Decision Making MDM Narrative: Clinically, the patient has a mild bladder prolapse. Her cervix appears in normal position. UA has mild blood but no evidence of infection. We will get an ultrasound to better evaluate. Patient medicated with morphine 50 mg p.o. labs are without significant abnormality. Patient will likely require pc analyst follow-up for conservative versus surgical management <Dimas Lopez - Last Filed: 07/26/22 23:52> Differential Diagnosis Bladder prolapse Uterine prolapse Pelvic abscess Pelvic pain Use today <Dimas Lopez - Last Filed: 07/26/22 23:52> Lab Data [facility] Lab Attestation statement: I reviewed the patient's lab results. <Dimas PanchalTierra - Last Filed: 07/26/22 23:52> Result Diagrams: 07/26/22 12:56 07/26/22 12:56 <SETH Richards - Last Filed: 07/26/22 15:26> Labs: Lab Results 07/26/22 07/26/22 07/26/22 Range/Units 12:56 12:56 16:01 WBC 5.0 (4.8-10.8) X10*3/uL RBC 4.55 (4.20-5.50) X10*6/uL Hgb 14.1 (12.0-16.0) g/dl Hct 41.9 (37.0-47.0) % MCV 92.1 (80.0-98.0) fL MCH 31.0 (27.0-33.0) pg MCHC 33.7 (31.0-35.0) g/dl RDW 12.5 (11.0-16.0) % Plt Count 196 (160-400) X10*3/uL MPV 9.5 (9.4-12.3) fL Absolute Nucleated RBC 0.000 (0.0-0.012) X10*3/uL Nucleated RBC % (auto) 0.0 (0.0-0.2) /100WBC Sodium 143 (135-145) mmol/L Potassium 4.6 (3.3-5.1) mmol/L Chloride 105 (96-108) mmol/L Carbon Dioxide 28 (22-29) mmol/L Anion Gap 15 (12-20) BUN 12 (9-16) mg/dL Creatinine 0.84 (0.5-1.4) mg/dL Estim Creat Clear Calc 76.8 Estimated GFR > 60 Random Glucose 97 (60-115) mg/dL Calcium 10.1 (8.4-10.2) mg/dL Urine Color Yellow Urine Appearance Clear Urine pH 5.5 (5.0-9.0) Ur Specific [place] 1.020 (1.005-1.025) Urine Protein Negative (Neg-Trace) mg/dL Urine Glucose (UA) Negative (Negative) mg/dL Urine Ketones 15 (Negative) mg/dL Urine Blood Negative (Negative) Urine Nitrite Negative (Negative) Ur Leukocyte Esterase Small (1+) H (Negative) Urine RBC 3-5 H (0-2) /HPF Urine WBC 0-5 (0-5) /HPF Ur Squamous Epith Cells 0-2 (0-2) /HPF Urine Bacteria None Seen (None Seen) Hyaline Casts 0-2 (0-2) /LPF <SETH Richards - Last Filed: 07/26/22 15:26> Lab Results 07/26/22 07/26/22 07/26/22 Range/Units 12:56 12:56 16:01 WBC 5.0 (4.8-10.8) X10*3/uL RBC 4.55 (4.20-5.50) X10*6/uL Hgb 14.1 (12.0-16.0) g/dl Hct 41.9 (37.0-47.0) % MCV 92.1 (80.0-98.0) fL MCH 31.0 (27.0-33.0) pg MCHC 33.7 (31.0-35.0) g/dl RDW 12.5 (11.0-16.0) % Plt Count 196 (160-400) X10*3/uL MPV 9.5 (9.4-12.3) fL Absolute Nucleated RBC 0.000 (0.0-0.012) X10*3/uL Nucleated RBC % (auto) 0.0 (0.0-0.2) /100WBC Sodium 143 (135-145) mmol/L Potassium 4.6 (3.3-5.1) mmol/L Chloride 105 (96-108) mmol/L Carbon Dioxide 28 (22-29) mmol/L Anion Gap 15 (12-20) BUN 12 (9-16) mg/dL Creatinine 0.84 (0.5-1.4) mg/dL Estim Creat Clear Calc 76.8 Estimated GFR > 60 Random Glucose 97 (60-115) mg/dL Calcium 10.1 (8.4-10.2) mg/dL Urine Color Yellow Urine Appearance Clear Urine pH 5.5 (5.0-9.0) Ur Specific [place] 1.020 (1.005-1.025) Urine Protein Negative (Neg-Trace) mg/dL Urine Glucose (UA) Negative (Negative) mg/dL Urine Ketones 15 (Negative) mg/dL Urine Blood Negative (Negative) Urine Nitrite Negative (Negative) Ur Leukocyte Esterase Small (1+) H (Negative) Urine RBC 3-5 H (0-2) /HPF Urine WBC 0-5 (0-5) /HPF Ur Squamous Epith Cells 0-2 (0-2) /HPF Urine Bacteria None Seen (None Seen) Hyaline Casts 0-2 (0-2) /LPF <Dimas Lopez - Last Filed: 07/26/22 23:52> Radiology Impression Discussion of test interpretation with radiology: I have reviewed the radiologist's reading. (No significant abnormality seen on bladder ultrasound) <Dimas Lopez - Last Filed: 07/26/22 23:52> Discharge Plan Discharge Clinical Impression: Acute pelvic pain <SETH Richards - Last Filed: 07/26/22 15:26> Patient Disposition: Home, Self-Care <SETH Richards - Last Filed: 07/26/22 15:26> Instructions: Pelvic Pain in Women (ED) <SETH Richards - Last Filed: 07/26/22 15:26> Additional Instructions: Your blood work, urine sample and ultrasound not show any significant abnormalities. Follow-up with pc analyst, Dr. Diallo at the number provided. You may use ibuprofen or Tylenol for pain Use morphine for severe, breakthrough pain This may make you sleepy, does not drink alcohol or drive after taking it <SETH Richards - Last Filed: 07/26/22 15:26> Prescriptions: New morphine 15 mg tablet 15 mg PO Q8H PRN (Reason: severe pain (scale score 7-10)) Qty: 15 0RF Rx Instructions: Partial Fill upon patient request. No Action warfarin 2.5 mg tablet See Rx Instructions PO DAILY Qty: 250 3RF Protocol: Dose Management Condition: Monday (Week One) Dose/Route: 5 mg Instruction: 2 x 2.5 mg tablets Condition: Monday Dose/Route: 7.5 mg Instruction: 3 x 2.5 mg tablets Condition: Monday Dose/Route: 5 mg Instruction: 2 x 2.5 mg tablets Condition: Monday Dose/Route: 7.5 mg Instruction: 3 x 2.5 mg tablets Condition: Dose/Route: 5 mg Instruction: 2 x 2.5 mg tablets Condition: Monday Dose/Route: 7.5 mg Instruction: 3 x 2.5 mg tablets Condition: Monday Dose/Route: 5 mg Instruction: 2 x 2.5 mg tablets Condition: Monday (Week Two) Dose/Route: 5 mg Instruction: 2 x 2.5 mg tablets Condition: Monday Dose/Route: 7.5 mg Instruction: 3 x 2.5 mg tablets Condition: Monday Dose/Route: 5 mg Instruction: 2 x 2.5 mg tablets Condition: Monday Dose/Route: 7.5 mg Instruction: 3 x 2.5 mg tablets Condition: Dose/Route: 5 mg Instruction: 2 x 2.5 mg tablets Condition: Monday Dose/Route: 7.5 mg Instruction: 3 x 2.5 mg tablets Condition: Monday Dose/Route: 5 mg Instruction: 2 x 2.5 mg tablets Protocol Text: Adjustment Start Date: Monday07/25/22 INR Value: 1.8 INR Date: 07/25/22 Recheck Date: 07/29/22 Rx Instructions: Take 2-3 tabs daily based on INR results metoprolol tartrate 25 mg tablet 25 mg PO BID Qty: 60 6RF cholecalciferol (vitamin D3) [Vitamin D3] 50 mcg (2,000 unit) Capsule 50 mcg PO DAILY Multivitamin 50 Plus Tablet 1 tab PO DAILY fluoxetine 20 mg capsule 20 mg PO QAM lamotrigine 100 mg tablet 250 mg PO BEDTIME latanoprost 0.005 % drops 1 drp ophthalmic (eye) BEDTIME trazodone 100 mg tablet 100 - 200 mg PO BEDTIME PRN (Reason: Sleep) hydroxyzine HCl 25 mg tablet 12.5 - 25 mg PO DAILY PRN (Reason: Anxiety) bisacodyl [Dulcolax (bisacodyl)] 5 mg tablet,delayed release (DR/EC) 10 mg PO ONCE 1 Days Qty: 2 0RF Rx Instructions: take 2 tabs at noon the day before your colonoscopy polyethylene glycol 3350 [Miralax] 17 gram/dose powder 17 g PO DAILY Qty: 510 2RF docusate sodium 100 mg capsule 100 mg PO BEDTIME Qty: 90 3RF albuterol sulfate 90 mcg/actuation HFA aerosol inhaler 2 inh inhalation PRN rosuvastatin [Crestor] 40 mg tablet 40 mg PO DAILY Qty: 90 3RF amoxicillin 500 mg capsule 2,000 mg PO ONCE ascorbic acid (vitamin C) 500 mg capsule 1,000 mg PO DAILY <SETH Richards - Last Filed: 07/26/22 15:26> Referrals: Elliot Diallo MD [Physician] - (pelvic pain. ? grade 1 bladder prolapse) <SETH Richards - Last Filed: 07/26/22 15:26>
[2022-07-26 16:08] LABS: Appearance Urine Clear; Color Urine Yellow; Glucose Urine UA Negative (Negative); Leukocyte Esterase Urine Small (1+) (Negative); Nitrite Urine Negative (Negative); PH 5.5 (5.0-9.0); UMIC TRIGGER UACC YES; Urine Blood Negative (Negative); Urine Ketones 15 mg/dL (Negative); Urine Protein Negative (Neg-Trace)
[2022-07-26 17:10] LABS: Bacteria Urine None Seen (None Seen); Hyaline Casts Urine 0-2 /LPF (0-2); Squamous Epithelial Cell Urine 0-2 /HPF (0-2); UACC Culture Trigger YES; WBC Urine 0-5 /HPF (0-5)
[2022-07-26 19:32] VITALS: BP 134/70; PULSE 64; RESP 18; TEMP 36.4; O2SAT 95
[2022-07-26] MEDS: Morphine Sulfate Immed Release 15 MG TABLET PO (21:50)
--- NOTE | 2022-07-26 22:47 | PC.NURSE ---
US at bedside. pt medicated with MSIR 15mg for 10/10 pelvic pain. pt alert oriented, calm and cooperative, call nevarez within reach
[2022-07-26 22:58] VITALS: BP 149/74; PULSE 66; RESP 15
[2022-07-27] VITALS: BP 128/80; PULSE 59; RESP 16; TEMP 36.1; O2SAT 94
[2022-07-27 00:15] VITALS: BP 128/80; PULSE 58; RESP 16; TEMP 36.1
== END 2022-07-27 00:18 | disposition home or self-care (01) ==
PROVIDERS: Emergency Provider Emergency Medicine; PCP Internal Medicine
DX: R10.2 Pelvic and perineal pain (principal); I48.91 Unspecified atrial fibrillation; Z79.01 Long term (current) use of anticoagulants; Z79.899 Other long term (current) drug therapy
CPT/HCPCS: 36415; 76857; 80048; 81001; 85027; 87086; 99284

== ENCOUNTER → 2022-07-29 09:26 | Outpatient (BNVA) | payer MEDICARE, SELFPAY | PROVIDERS: PCP Internal Medicine; Visit Provider Internal Medicine | DX: I48.91 Unspecified atrial fibrillation (principal); Z79.01 Long term (current) use of anticoagulants; Z51.81 Encounter for therapeutic drug level monitoring | CPT/HCPCS: 85610; 99211 ==

== ENCOUNTER 2022-08-02 09:53 | Outpatient (REF) | payer MEDICARE, SELFPAY ==
[2022-08-02 16:22] LABS: Urine Cytology See Pathology rpt
== END 2022-08-02 09:54 | disposition home or self-care (01) ==
LOC: HO.LNP 09:53
PROVIDERS: PCP Internal Medicine; Visit Provider Nurse Practitioner Family
DX: R31.29 Other microscopic hematuria (principal); N39.3 Stress incontinence (female) (male)
CPT/HCPCS: 88112; 99202

== ENCOUNTER → 2022-08-09 09:22 | Outpatient (BNVA) | payer MEDICARE, SELFPAY | PROVIDERS: PCP Internal Medicine; Visit Provider Internal Medicine | DX: I48.91 Unspecified atrial fibrillation (principal); Z79.01 Long term (current) use of anticoagulants; Z51.81 Encounter for therapeutic drug level monitoring | CPT/HCPCS: 85610; 99211 ==

== ENCOUNTER → 2022-08-16 08:56 | Outpatient (BNVA) | payer MEDICARE, SELFPAY | PROVIDERS: PCP Internal Medicine; Visit Provider Internal Medicine | DX: I48.91 Unspecified atrial fibrillation (principal); Z79.01 Long term (current) use of anticoagulants; Z51.81 Encounter for therapeutic drug level monitoring | CPT/HCPCS: 85610; 99211 ==

== ENCOUNTER → 2022-08-25 08:26 | Outpatient (BNVA) | payer MEDICARE, SELFPAY | PROVIDERS: PCP Internal Medicine; Visit Provider Internal Medicine | DX: I48.91 Unspecified atrial fibrillation (principal); Z79.01 Long term (current) use of anticoagulants; Z51.81 Encounter for therapeutic drug level monitoring | CPT/HCPCS: 85610; 99211 ==

== ENCOUNTER → 2022-08-31 14:15 | Outpatient (BNVA) | payer MEDICARE, SELFPAY | PROVIDERS: PCP Internal Medicine; Visit Provider Urology | DX: R31.0 Gross hematuria (principal); N32.9 Bladder disorder, unspecified | CPT/HCPCS: 52000; 99212 ==

== ENCOUNTER → 2022-09-05 08:01 | Outpatient (BNVA) | payer MEDICARE, SELFPAY | PROVIDERS: PCP Internal Medicine; Visit Provider Internal Medicine | DX: I48.91 Unspecified atrial fibrillation (principal); Z79.01 Long term (current) use of anticoagulants; Z51.81 Encounter for therapeutic drug level monitoring | CPT/HCPCS: 85610; 99211 ==

== ENCOUNTER → 2022-09-19 08:05 | Outpatient (BNVA) | payer MEDICARE, SELFPAY | PROVIDERS: PCP Internal Medicine; Visit Provider Internal Medicine | DX: I48.20 Chronic atrial fibrillation, unspecified (principal); Z79.01 Long term (current) use of anticoagulants; Z51.81 Encounter for therapeutic drug level monitoring | CPT/HCPCS: 85610; 99211 ==

== ENCOUNTER 2022-10-03 10:09 | Outpatient (REF) | payer MEDICARE, SELFPAY | END 2022-10-03 10:10 | disposition home or self-care (01) | LOC: HO.LAB 10:09 | PROVIDERS: PCP Internal Medicine; Visit Provider Urology | DX: R31.0 Gross hematuria (principal) | CPT/HCPCS: 36415; 85610 ==

== ENCOUNTER 2022-10-04 07:18 | Day surgery (SDC) | payer MEDICARE, SELFPAY ==
[2022-09-30 08:29] VITALS: BMI 29.8
--- NOTE | ~2022-10-04 | FL_ITS ---
EXAMINATION: XR FLUOROSCOPY WITH IMAGES CLINICAL INFORMATION: Cystoscopy COMPARISON: None available. TECHNIQUE: Fluoroscopy Supervised By: Daniele. Fluoroscopy Time: 27.7. Cumulative Dose: 10.34 mGy. DAP: Gycm2. Not provided by equipment Images: 7. FINDINGS: Contrast opacifies portions of the urinary collecting system. Cystoscope present. FL/FL guidance in OR IMPRESSION: Imaging assistance provided during urologic procedure
[2022-10-04 07:46] VITALS: BP 110/58; PULSE 57; RESP 16; TEMP 36.8; O2SAT 96
[2022-10-04] MEDS: Lactated Ringers 1,000 ML 100 ML IVCONT (08:00)
[2022-10-04 08:36] LABS: Prothrombin Time 11.9 SEC (10.0-13.1)
--- NOTE | 2022-10-04 08:51 | HO.ANESPROP2 ---
HPI - Anesthesia Eval Consult details Narrative: Cysto PMFSH Active Problems Active Problems: All Active Problems (Updated 10/04/22 @ 07:45 by Tati Dexter) Other and unspecified hyperlipidemia (Acute) Encounter for monitoring anti-arrhythmic therapy (Acute) Abnormal EKG (Acute) Atherosclerotic cardiovascular disease (Acute) Anxiety and depression (Acute) S/P colon resection (Acute) Annual physical exam (Acute) Hyperlipidemia (Acute) Vitamin D deficiency (Acute) Sinusitis (Acute) Elevated LFTs (Acute) Preoperative cardiovascular examination (Acute) Low back pain (Acute) Postmenopausal (Acute) Vitamin B 12 deficiency (Acute) Current use of anticoagulant therapy (Acute) Dysuria (Acute) Microscopic hematuria (Acute) Stress incontinence (Acute) Gross hematuria (Acute) Lesion of bladder (Acute) PAF (paroxysmal atrial fibrillation) (Acute) Past Medical History Medical History (Updated 10/04/22 @ 07:45 by Tati Dexter) Anxiety Asthma Chronic low back pain Depression Hypertension On anticoagulant therapy On beta francisco at home PAF (paroxysmal atrial fibrillation) Family History Family History Father Myocardial infarction CVD (cardiovascular disease) Mother Mental health disorder Sister Mental health disorder Family history of problems with anesthesia: No Surgical History Surgical History (Updated 10/04/22 @ 07:42 by Tati Dexter) H/O colonoscopy History of bowel resection History of evacuation of hematoma History of knee surgery History of Problems with Anesthesia: No Social History Social History Household Members: Spouse and Family 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 Current occupational exposures/hazards: No Cognitive needs: No Hearing needs: No Vision needs: Yes Meds Allergies Allergy/AdvReac Type Severity Reaction Status Date / Time oxycodone [From PERCODAN] Allergy Intermediate HIVES Verified 10/04/22 07:42 rosuvastatin [From Crestor] AdvReac Intermediate body aches Verified 10/04/22 07:42 Hydrocodone-Acetaminophen AdvReac Unknown nausea and Uncoded 10/04/22 07:42 vomiting Active Medications: Current Medications Lactated Ringer's (Lr) 1,000 mls @ 100 mls/hr IVCONT .Q10H CHE Last Admin: 10/04/22 08:00 Dose: 100 mls/hr Home Medications Medication Instructions Recorded Confirmed Last Taken Type lamotrigine 100 mg tablet 250 mg PO BEDTIME 10/01/20 10/04/22 01/30/21 History latanoprost 0.005 % eye drops 1 drp ophthalmic (eye) BEDTIME 10/01/20 10/04/22 01/30/21 History trazodone 100 mg tablet 100 - 200 mg PO BEDTIME PRN Sleep 10/01/20 10/04/22 01/30/21 History hydroxyzine HCl 25 mg tablet 12.5 - 25 mg PO DAILY PRN Anxiety 12/16/20 10/04/22 01/30/21 History fluoxetine 20 mg capsule 20 mg PO QAM 12/01/21 10/04/22 10/04/22 History ascorbic acid (vitamin C) 500 mg 1,000 mg PO DAILY 06/02/22 10/04/22 Unknown History capsule cholecalciferol (vitamin D3) 50 50 mcg PO DAILY 06/08/22 10/04/22 Unknown History mcg (2,000 unit) capsule (Vitamin D3) glhosxwreegy-tbtjfzna-owhqcj 1 tab PO DAILY 06/08/22 10/04/22 Unknown History tablet (Multivitamin 50 Plus tablet) Exam Exam Date and Time: October 04, 2022 0851 Height,Weight and Vital Signs: Height 5 ft 8 in Weight 88.904 kg Last Vital Signs Temp 98.2 F 10/04/22 07:46 Pulse 57 10/04/22 07:46 Resp 16 10/04/22 07:46 BP 110/58 L 10/04/22 07:46 Pulse Ox 96 10/04/22 07:46 O2 Del Method Room Air 10/04/22 07:46 Pertinent Lab Results Pertinent Lab Results: Laboratory Tests 10/04/22 08:11 PT 11.9 INR 1.0 Airway Mallampati Class: III TM Dist: <=3cm Neck ROM: Limited Heart: rrr Lungs: cta Assessment and Plan Assessment Anesthesia Assessment: Anesthesia Plan Discussed and Chart Reviewed Final Anesthetic Review Family History of Problems with Anesthesia: No History of Problems with Anesthesia: No NPO: Yes ASA Class: III Final Preanesthetic Review: No Changes in Pt Med Stat, Meds/Allgs Chart Reviewed, Consent Obtained/Reviewed and Anes Risks/Benef Reviewed Patient Risk: Intermediate Procedure Risk: Intermediate Anesthetic Plan Anesthetic Plan: GA and Agree w/ Assess. and Plan Disposition: Standard PACU
--- NOTE | 2022-10-04 09:09 | MHC.SHP ---
Pre-Procedural Eval Section A Date of Service: 10/04/22 The patient is an INPATIENT: No The History & Physical has been completed within 30 days and I have reviewed it.: No Section B Chief Complaint: Gross hematuria Details of Present Illness: Rowena is a 67-year-old female who was seen in the emergency room for episodes of gross hematuria and had a CT imaging performed. She was treated with antibiotics. The patient is on Coumadin for atrial fibrillation, she denies history of cigarette smoking. CTAP wo IV contrast -06/28/22--Kidneys and ureters are normal. Bladder US--07/26/22--Unremarkable appearance of the bladder. Urine cytology--08/03/22--negative for malignant cells. Office Cystoscopy 08/31/22--findings-- irregular changes at the bladder neck near the left trigone. I discussed further evaluation with cystoscopy bilateral retrogrades possible ureteroscopy and bladder biopsy. Relevant Family History (Specify if Yes): No Present Medications: see Short Stay Collaborative assessment Allergies: Allergies Allergy/AdvReac Type Severity Reaction Status Date / Time oxycodone [From PERCODAN] Allergy Intermediate HIVES Verified 10/04/22 07:42 rosuvastatin [From Crestor] AdvReac Intermediate body aches Verified 10/04/22 07:42 Hydrocodone-Acetaminophen AdvReac Unknown nausea and Uncoded 10/04/22 07:42 vomiting Review of Systems Review of Systems Comment: 10 point ROS negative other than stated in HPI Exam Surgical H&P Exam: Normal: HEENT, Normal: Heart, Normal: Lungs and Normal: Neurological Plan Diagnosis/Plan: Unchanged I have reviewed the history and physical and performed a pertinent physical examination on my patient. No changes have occurred unless specified. Cystoscopy bilateral retrogrades possible ureteroscopy and bladder biopsy. Discussed risks to include but not limited to, blood in the urine, burning with urination, urgency. Time Spent With Patient Time: Total time managing care of this patient today ____ minutes.
[2022-10-04 10:08] VITALS: BP 117/59; PULSE 60; RESP 16; TEMP 36.7; O2SAT 96
[2022-10-04 10:13] VITALS: BP 117/61; PULSE 64; RESP 16; O2SAT 93
[2022-10-04 10:18] VITALS: BP 125/53; PULSE 64; RESP 16; O2SAT 93
--- NOTE | 2022-10-04 10:21 | W.PM.OPN ---
Operative Note Operative Note Date of Service: 10/04/22 Narrative: PreOperative Diagnosis:?? Gross Hematuria Post Operative Diagnosis:?? ?Gross Hematuria Procedure: Cystoscopy, bilateral retrogrades, bladder bx Surgeon:?Dr Adryan Schaefer Anesthesia:? General Procedure: After informed consent was verified the patient was brought to the operating placed on the OR table in supine position.? General Anesthesia was administered per protocol.? The patient was placed in lithotomy position, prepped and draped in the usual sterile fashion.? Safety pause time-out and side of surgery confirmed.? Antibiotics confirmed. A 22 [place] cystoscope was inserted transurethrally, The bladder was visualized.? Both ureteric orifices were in normal position. The? ureteric orifice was cannulated? and a retrograde examination was performed, there were were no filling defects noted. Bilateral retrogrades were within normal limits. Random bladder biopsy posterior wall, bugbee electrode was used for hemostasis. The bladder was emptied.? The rigid cystoscope was removed. ? The patient tolerated the procedure well and was brought to the recovery room in stable condition. Complications: None Drains: None
[2022-10-04 10:23] VITALS: BP 148/74; PULSE 63; RESP 16; TEMP 36.1; O2SAT 97
[2022-10-04] MEDS: Phenazopyridine HCL 100 MG TABLET 200 MG PO (10:29)
[2022-10-04 10:45] VITALS: BP 127/61; PULSE 62; RESP 16; O2SAT 96
== END 2022-10-04 11:20 | disposition home or self-care (01) ==
PROVIDERS: Anesthesiology; PCP Internal Medicine; Visit Provider Urology
PROC: 0TJ98ZZ Inspection of Ureter, Via Natural or Artificial Opening Endoscopic (ICD-10-PCS; CPT 52351; principal; 2022-10-04 09:00)
DX: R31.0 Gross hematuria (principal); I48.0 Paroxysmal atrial fibrillation; Z79.01 Long term (current) use of anticoagulants; Z88.5 Allergy status to narcotic agent
CPT/HCPCS: 52204; 52005; 36415; 85610; 87086; 88305; C1758; C1769; C1894; J0131; J0690; J1100; J1885; J2405; Q9967

== ENCOUNTER → 2022-10-04 07:18 | Outpatient (BNV) | payer MEDICARE, SELFPAY | PROVIDERS: PCP Internal Medicine; Visit Provider Urology | DX: R31.0 Gross hematuria (principal) | CPT/HCPCS: 52204; 74420 ==

== ENCOUNTER 2022-10-13 08:07 | Outpatient (AMB) | payer MEDICARE, SELFPAY ==
--- NOTE | 2022-10-13 08:15 | MHC.OFFVISCO ---
Intake Intake Visit Reasons: Anticoagulation Allergies oxycodone [From PERCODAN] Allergy (Intermediate, Verified 10/13/22 08:10) HIVES rosuvastatin [From Crestor] Adverse Reaction (Intermediate, Verified 10/13/22 08:10) body aches Hydrocodone-Acetaminophen Adverse Reaction (Unknown, Uncoded 10/13/22 08:10) nausea and vomiting Medication List - Last Reconciled 10/13/22 by Komal Thomas RN albuterol sulfate 90 mcg/actuation 2 inhalations inhalation Q6-8H PRN alirocumab (Praluent Pen) 75 mg subcut Q2W amoxicillin 2,000 mg (4 x 500 mg) PO .before dental visit PRN ascorbic acid (vitamin C) 1,000 mg PO DAILY cholecalciferol (vitamin D3) (Vitamin D3) 50 mcg PO DAILY docusate sodium 100 mg PO BEDTIME doxycycline monohydrate 100 mg PO BID fluoxetine 20 mg PO QAM hydroxyzine HCl 12.5 - 25 mg PO DAILY PRN lamotrigine 250 mg PO BEDTIME latanoprost 0.005% 1 drp ophthalmic (eye) BEDTIME metoprolol tartrate 25 mg PO BID adlbbxdncryw-tiorcydr-fmibwj (Multivitamin 50 Plus tablet) 1 tab PO DAILY polyethylene glycol 3350 (Miralax) 17 grams PO DAILY trazodone 100 - 200 mg PO BEDTIME PRN warfarin See Protocol Take 2-3 tabs daily based on INR results Nursing Note INR 1.5-? out of therapeutic range Medications and supplements reviewed Patient status: pt s/p bladder biospy on 10/04/22 with 5 day warfarin hold - no lovenox. restarted warfarin on sat Medications or supplements: doxycycline 100mg bid x 7 days, finished yesterday Diet: same Denies any signs and symptoms of bleeding or clotting or unusual bruising Bleeding, bruising, clotting discussed - denies hematuria Nutritional guidance given: no greens for 2 days, eat a red today Dose: 7.5mg today then cont 7.5mg x 3, 5mg x 4 F/U INR Date : monday10/17/22?? Patient verbalizing understanding of instructions given. pcp dr richards office called with low inr/dosing and f/u appt- spoke to meet at 0830 Anti-Coag Initial Assessment Social Hx Patient Tobacco Use Status: Never used Tobacco alcohol intake: never Alcohol intake frequency: a few times a month Cardiovascular Hx: Arrhythmias (afib) and Varicose Veins Lung Disease HX: Asthma Musculoskeletal Hx: Arthritis Blood Disorder Hx: Hyperlipidemia GI Hx: Diverticulosis and Hemorrhoids Neurological Hx: Serious Head Injury Cancer HX: No Psych. 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
[2022-10-13 08:16] LABS: Prothrombin Time Whole Bld POC 17.8 sec (11.1-13.5); ~PT, ~INR - Anti Coag Clinic 1.5 (0.9-1.1)
== END 2022-10-13 08:33 | disposition home or self-care (01) ==
LOC: HO.ACS 08:07
PROVIDERS: PCP Internal Medicine; Visit Provider Internal Medicine
DX: Z79.01 Long term (current) use of anticoagulants (principal)

== ENCOUNTER → 2022-10-13 08:07 | Outpatient (BNVA) | payer MEDICARE, SELFPAY | PROVIDERS: PCP Internal Medicine; Visit Provider Internal Medicine | DX: I48.91 Unspecified atrial fibrillation (principal); Z79.01 Long term (current) use of anticoagulants; Z51.81 Encounter for therapeutic drug level monitoring | CPT/HCPCS: 85610; 99211 ==

== ENCOUNTER 2022-10-17 08:01 | Outpatient (AMB) | payer MEDICARE, SELFPAY ==
[2022-10-17 08:09] LABS: Prothrombin Time Whole Bld POC 25.3 sec (11.1-13.5); ~PT, ~INR - Anti Coag Clinic 2.1 (0.9-1.1)
--- NOTE | 2022-10-17 08:15 | MHC.OFFVISCO ---
Intake Intake Visit Reasons: Anticoagulation Allergies oxycodone [From PERCODAN] Allergy (Intermediate, Verified 10/17/22 08:04) HIVES rosuvastatin [From Crestor] Adverse Reaction (Intermediate, Verified 10/17/22 08:04) body aches Hydrocodone-Acetaminophen Adverse Reaction (Unknown, Uncoded 10/13/22 08:10) nausea and vomiting Medication List - Last Reconciled 10/17/22 by Bernie Hernández RN albuterol sulfate 90 mcg/actuation 2 inhalations inhalation Q6-8H PRN alirocumab (Praluent Pen) 75 mg subcut Q2W amoxicillin 2,000 mg (4 x 500 mg) PO .before dental visit PRN ascorbic acid (vitamin C) 1,000 mg PO DAILY cholecalciferol (vitamin D3) (Vitamin D3) 50 mcg PO DAILY docusate sodium 100 mg PO BEDTIME fluoxetine 20 mg PO QAM hydroxyzine HCl 12.5 - 25 mg PO DAILY PRN lamotrigine 250 mg PO BEDTIME latanoprost 0.005% 1 drp ophthalmic (eye) BEDTIME metoprolol tartrate 25 mg PO BID zjopoyobvejj-kzpjtxvp-kezgtm (Multivitamin 50 Plus tablet) 1 tab PO DAILY polyethylene glycol 3350 (Miralax) 17 grams PO DAILY trazodone 100 - 200 mg PO BEDTIME PRN warfarin See Protocol Take 2-3 tabs daily based on INR results Nursing Note NO CP,SOB,DIET/MED CHANGES,FALLS OR SX OF BLEEDING. RESUME PREVIOUS DOSING AND FOLLOW-UP IN 2 WEEKS. GOOD UNDERSTANDING OF DOSING INSTR. Anti-Coag Initial Assessment Social Hx Patient Tobacco Use Status: Never used Tobacco alcohol intake: never Alcohol intake frequency: a few times a month Cardiovascular Hx: Arrhythmias (afib) and Varicose Veins Lung Disease HX: Asthma Musculoskeletal Hx: Arthritis Blood Disorder Hx: Hyperlipidemia GI Hx: Diverticulosis and Hemorrhoids Neurological Hx: Serious Head Injury Cancer HX: No Psych. 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
== END 2022-10-17 08:17 | disposition home or self-care (01) ==
LOC: HO.ACS 08:01
PROVIDERS: PCP Internal Medicine; Visit Provider Internal Medicine
DX: Z79.01 Long term (current) use of anticoagulants (principal)

== ENCOUNTER → 2022-10-17 08:01 | Outpatient (BNVA) | payer MEDICARE, SELFPAY | PROVIDERS: PCP Internal Medicine; Visit Provider Internal Medicine | DX: I48.91 Unspecified atrial fibrillation (principal); Z51.81 Encounter for therapeutic drug level monitoring; Z79.01 Long term (current) use of anticoagulants | CPT/HCPCS: 85610; 99211 ==

== ENCOUNTER 2022-10-19 11:37 | Outpatient (AMB) | payer MEDICARE, SELFPAY ==
--- NOTE | 2022-10-19 07:00 | MHC.OFFVIS ---
Intake Intake Visit Reasons: 2w post op Intake Note: Patient presents today for a follow-up on: Meds- None Allergies to Antibiotic- No Known Allergies Blood Thinner- Warfarin PVR- Allergies oxycodone [From PERCODAN] Allergy (Intermediate, Verified 11/21/22 08:19) HIVES rosuvastatin [From Crestor] Adverse Reaction (Intermediate, Verified 11/21/22 08:19) body aches Hydrocodone-Acetaminophen Adverse Reaction (Unknown, Uncoded 11/21/22 08:19) nausea and vomiting HPI HPI Comments History of Present Illness Details Rowena is a 67-year-old female who presents to the office post outpatient cystoscopy procedure. 10/19/2022-- Rowena is a 67-year-old female who presents today to the office for a follow-up. She had bladder biopsy and retrograde cystoscopy on 10/04/2022. I have reviewed path results: Benign urothelium with minimal chronic inflammation Today, she reports mild dysuria. She states that her is currently diagnosed with prostate cancer. Review of chart: 09/01/22-- Rowena is a 67-year-old female who was initially evaluated by GENTRY Wagner for gross hematuria. She was seen in the emergency room for episodes of gross hematuria and had a CT urogram performed. States being treated with antibiotics when she was in the ER. The patient is on Coumadin for atrial fibrillation which has been prescribed by her PCP. The patient denies history of cigarette smoking. CTAP results reviewed-06/28/22--Kidneys and ureters are normal. Bladder US--07/26/22--Unremarkable appearance of the bladder. Post void residual volume of 47 mL. Urine cytology--08/03/22--negative for malignant cells. Evaluation today-- Blood: trace, leukocytes: trace. 09/01/22---Cystoscopy findings-- irregular changes at the bladder neck near the left trigone I discussed further evaluation with cystoscopy bilateral retrogrades possible ureteroscopy and bladder biopsy. Plan: Cystoscopy bilateral retrogrades possible ureteroscopy and bladder biopsy discussed to be scheduled. Will need to get medical clearance to stop Coumadin 5 days before the procedure. 10/19/22---Evaluation today-- UA -- Blood: trace. Leukocytes: trace. Plan: Recommended the patient to call us if she has any symptoms. Follow up in 1 year. 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 a significant other at home: Yes Do you presently have visiting nurse or other home services: No Alcohol intake: never Patient Tobacco Use Status: Never used Tobacco e-Cigarette/Vaping Use: Never Used service: No Current occupational status: retired 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 Current occupational exposures/hazards: No Cognitive needs: No Hearing needs: No Vision needs: Yes Review of Systems Const All systems reviewed & are unremarkable except as noted in HPI and below Reports no additional complaints Eyes Reports no additional complaints ENT Reports no additional complaints Card Denies dyspnea Resp Denies cough and Denies dyspnea GI Reports no additional complaints Reports no additional complaints Musc Reports no additional complaints Skin/Breast Denies rash and Denies unusual bruising Neuro Reports no additional complaints Psych Reports no additional complaints Endo Reports no additional complaints Ayaan/Lymph Reports no additional complaints Aller/Immun Reports no additional complaints Office Procedures Post Void Residual Post Residual Void Post Void Residual (PVR): 0 [id number] Void Residual by ultrasound Results AMB Urinalysis, Automated UA Leukoctes 1 Grabiel/uL Last Edit by Juancarlos Ling CMA on 10/19/22 12:20 + Juancarlos Ling 10/19/22 12:20 UA Nitrite Negative Last Edit by Juancarlos Ling CMA on 10/19/22 12:20 UA Urobilinogen 0.2 mg/dL Last Edit by Juancarlos Ling CMA on 10/19/22 12:20 UA Protein 1 mg/dL Last Edit by Juancarlos Ling CMA on 10/19/22 12:20 UA pH 5.5 Last Edit by Juancarlos Ling CMA on 10/19/22 12:20 UA Blood 1 Eze/uL Last Edit by Juancarlos Ling CMA on 10/19/22 12:20 + Juancarlos Ling 10/19/22 12:20 UA Specific [place] 1.020 Last Edit by Juancarlos Ling CMA on 10/19/22 12:20 UA Ketone Negative Last Edit by Juancarlos Ling CMA on 10/19/22 12:20 UA Bilirubin 0 mg/dL Last Edit by Juancarlos Ling CMA on 10/19/22 12:20 UA Glucose 0 mg/dL Last Edit by Juancarlos Ling CMA on 10/19/22 12:20 Results Reviewed Results Reviewed: Laboratory Last Values Urine pH (Auto) 5.5 10/19/22 11:57 Specific [place] (Auto) 1.020 10/19/22 11:57 Urine Protein (Auto) 1 mg/dL 10/19/22 11:57 Glucose (UA)(Auto) 0 mg/dL 10/19/22 11:57 Urine Ketones (Auto) Negative 10/19/22 11:57 Urine Blood (Auto) 1 Eze/uL 10/19/22 11:57 Urine Nitrite (Auto) Negative 10/19/22 11:57 Urine Bilirubin (Auto) 0 mg/dL 10/19/22 11:57 Urine Urobilinogen (Auto) 0.2 mg/dL 10/19/22 11:57 Leukocyte Esterase (Auto) 1 Grabiel/uL 10/19/22 11:57 Bladder biopsy-- 10/04/2022-- Diagnosis Bladder, random posterior wall, biopsy:? Benign urothelium with minimal chronic inflammation and congested vessels; no muscularis propria present. Clinical History Gross hematuria Microscopic Description Microscopic sections reviewed. Material Received Random bladder bx's posterior wall Gross Description Received in formalin labeled ?random bladder bx's (sic) posterior wall? wrapped in Telfa is a 0.35 cm in greatest dimension hyperemic and congested, cole-red rubbery, wedge-shaped fragment of mucosa which is submitted in toto in a single labeled A.? Assessment & Plan Assessment & Plan (1) Microscopic hematuria: Code(s): R31.29 - Other microscopic hematuria (2) Chronic cystitis: Code(s): N30.20 - Other chronic cystitis without hematuria (3) Post-menopausal atrophic vaginitis: Code(s): N95.2 - Postmenopausal atrophic vaginitis Plan Recommended the patient to call us if she has any symptoms. Follow up in 1 year. Orders: Orders AMB Urinalysis Automated 10/19/22 Z13.9 - Encounter for screening, unspecified AMB Post Void Residual by ultrasound 10/19/22 N39.3 - Stress incontinence (female) (male) Patient Instructions: The patient had an opportunity to ask questions regarding treatment plan. All questions were answered. Imaging, Laboratory studies and physical exam results were discussed and reviewed in detail. No major barriers to understanding were identified. The patient expressed understanding and agreement with the above treatment plan.? ? ? The patient is aware they should contact our office by phone for worsening of their current condition or the appearance of new symptoms. Compliance is encouraged with any medications and followup testing that is ordered.? ? ? It is a privilege to be allowed the opportunity to participate in the urologic care of your patient. If you have any questions or concerns regarding treatment for the above conditions please do not hesitate to contact me. The office telephone contact is [phone].? ? ? This note is constructed in part using voice recognition software. While every effort has been made to ensure accuracy chief drafter errors may have been included.? ? ? Yours sincerely,? ? ? Adryan Schaefer MD? Coding Level of Care Code Est Pt Level 3 (30673) Diagnoses Microscopic hematuria R31.29 Chronic cystitis N30.20 Post-menopausal atrophic vaginitis N95.2 CPT Codes Post Residual Void - PVR CPT Code: 06325-Dero Void Residual by ultrasound ([id number])
== END 2022-10-19 12:30 | disposition home or self-care (01) ==
PROVIDERS: PCP Internal Medicine; Visit Provider Urology
DX: R31.29 Other microscopic hematuria (principal); N30.20 Other chronic cystitis without hematuria; N95.2 Postmenopausal atrophic vaginitis
CPT/HCPCS: 99213

== ENCOUNTER → 2022-10-19 11:37 | Outpatient (BNVA) | payer MEDICARE, SELFPAY | PROVIDERS: PCP Internal Medicine; Visit Provider Urology | DX: R31.29 Other microscopic hematuria (principal); N30.20 Other chronic cystitis without hematuria; N95.2 Postmenopausal atrophic vaginitis | CPT/HCPCS: 51798; 99212 ==

== ENCOUNTER 2022-10-31 08:10 | Outpatient (AMB) | payer MEDICARE, SELFPAY ==
--- NOTE | 2022-10-31 08:15 | MHC.OFFVISCO ---
Intake Intake Visit Reasons: Anticoagulation Allergies oxycodone [From PERCODAN] Allergy (Intermediate, Verified 10/31/22 08:11) HIVES rosuvastatin [From Crestor] Adverse Reaction (Intermediate, Verified 10/31/22 08:11) body aches Hydrocodone-Acetaminophen Adverse Reaction (Unknown, Uncoded 10/31/22 08:11) nausea and vomiting Medication List - Last Reconciled 10/31/22 by Gregoria Dorado RN albuterol sulfate 90 mcg/actuation 2 inhalations inhalation Q6-8H PRN alirocumab (Praluent Pen) 75 mg subcut Q2W amoxicillin 2,000 mg (4 x 500 mg) PO .before dental visit PRN ascorbic acid (vitamin C) 1,000 mg PO DAILY cholecalciferol (vitamin D3) (Vitamin D3) 50 mcg PO DAILY docusate sodium 100 mg PO BEDTIME fluoxetine 20 mg PO QAM hydroxyzine HCl 12.5 - 25 mg PO DAILY PRN lamotrigine 250 mg PO BEDTIME latanoprost 0.005% 1 drp ophthalmic (eye) BEDTIME metoprolol tartrate 25 mg PO BID rmdohirkutot-zysmgvxu-pborjm (Multivitamin 50 Plus tablet) 1 tab PO DAILY polyethylene glycol 3350 (Miralax) 17 grams PO DAILY trazodone 100 - 200 mg PO BEDTIME PRN warfarin See Protocol Take 2-3 tabs daily based on INR results Nursing Note INR: 2.6 in therapeutic range BLADDER BX BENIGN Medications and supplements reviewed No changes in health, diet, medications, or supplements, Denies any signs and symptoms of bleeding or bruising or clotting. Bleeding, bruising, clotting discussed Nutritional guidance given Dose: 7.5 x 3 days/ 5mg x 4 days F/U INR: 3 weeks Patient verbalizes understanding of instructions given Anti-Coag Initial Assessment Social Hx Patient Tobacco Use Status: Never used Tobacco alcohol intake: never Alcohol intake frequency: a few times a month Cardiovascular Hx: Arrhythmias (afib) and Varicose Veins Lung Disease HX: Asthma Musculoskeletal Hx: Arthritis Blood Disorder Hx: Hyperlipidemia GI Hx: Diverticulosis and Hemorrhoids Neurological Hx: Serious Head Injury Cancer HX: No Psych. Illness/Depression: Yes Coding Level of Care Code Est Patient Level 1 Diagnoses Current use of anticoagulant therapy Z79.01 Results AMB INR Fingerstick AMB INR Fingerstick 2.6 Last Edit by Gregoria Dorado RN on 10/31/22 08:18 interface issues Assessment & Plan Assessment & Plan (1) Current use of anticoagulant therapy: Code(s): Z79.01 - [facility] (current) use of anticoagulants Category: Medical
[2022-10-31 08:25] LABS: Prothrombin Time Whole Bld POC 31.4 sec (11.1-13.5); ~PT, ~INR - Anti Coag Clinic 2.6 (0.9-1.1)
== END 2022-10-31 08:25 | disposition home or self-care (01) ==
LOC: HO.ACS 08:10
PROVIDERS: PCP Internal Medicine; Visit Provider Internal Medicine
DX: Z79.01 Long term (current) use of anticoagulants (principal)

== ENCOUNTER → 2022-10-31 08:10 | Outpatient (BNVA) | payer MEDICARE, SELFPAY | PROVIDERS: PCP Internal Medicine; Visit Provider Internal Medicine | DX: I48.91 Unspecified atrial fibrillation (principal); Z79.01 Long term (current) use of anticoagulants; Z51.81 Encounter for therapeutic drug level monitoring | CPT/HCPCS: 85610; 99211 ==

== ENCOUNTER 2022-11-21 08:18 | Outpatient (AMB) | payer MEDICARE, SELFPAY ==
[2022-11-21 08:24] LABS: Prothrombin Time Whole Bld POC 26.6 sec (11.1-13.5); ~PT, ~INR - Anti Coag Clinic 2.2 (0.9-1.1)
--- NOTE | 2022-11-21 08:24 | MHC.OFFVISCO ---
Intake Intake Visit Reasons: Anticoagulation Allergies oxycodone [From PERCODAN] Allergy (Intermediate, Verified 11/21/22 08:19) HIVES rosuvastatin [From Crestor] Adverse Reaction (Intermediate, Verified 11/21/22 08:19) body aches Hydrocodone-Acetaminophen Adverse Reaction (Unknown, Uncoded 11/21/22 08:19) nausea and vomiting Medication List - Last Reconciled 11/21/22 by Komal Thomas RN albuterol sulfate 90 mcg/actuation 2 inhalations inhalation Q6-8H PRN alirocumab (Praluent Pen) 75 mg subcut Q2W amoxicillin 2,000 mg (4 x 500 mg) PO .before dental visit PRN ascorbic acid (vitamin C) 1,000 mg PO DAILY cholecalciferol (vitamin D3) (Vitamin D3) 50 mcg PO DAILY docusate sodium 100 mg PO BEDTIME fluoxetine 20 mg PO QAM hydroxyzine HCl 12.5 - 25 mg PO DAILY PRN lamotrigine 250 mg PO BEDTIME latanoprost 0.005% 1 drp ophthalmic (eye) BEDTIME metoprolol tartrate 25 mg PO BID wrwysxiykrce-orlwrasr-jancym (Multivitamin 50 Plus tablet) 1 tab PO DAILY polyethylene glycol 3350 (Miralax) 17 grams PO DAILY trazodone 100 - 200 mg PO BEDTIME PRN warfarin See Protocol Take 2-3 tabs daily based on INR results Nursing Note INR: 2.2- in therapeutic range Medications and supplements reviewed No changes in health, diet, medications, or supplements, Denies any signs and symptoms of bleeding or bruising or clotting. Bleeding, bruising, clotting discussed Nutritional guidance given Dose: 7.5mg x 3, 5mg x 4 F/U INR: pt req 4 weeks Patient verbalizes understanding of instructions given Anti-Coag Initial Assessment Social Hx Patient Tobacco Use Status: Never used Tobacco alcohol intake: never Alcohol intake frequency: a few times a month Cardiovascular Hx: Arrhythmias (afib) and Varicose Veins Lung Disease HX: Asthma Musculoskeletal Hx: Arthritis Blood Disorder Hx: Hyperlipidemia GI Hx: Diverticulosis and Hemorrhoids Neurological Hx: Serious Head Injury Cancer HX: No Psych. Illness/Depression: Yes Coding Level of Care Code Est Patient Level 1 Diagnoses Current use of anticoagulant therapy Z79.01 Assessment & Plan Assessment & Plan (1) Current use of anticoagulant therapy: Code(s): Z79.01 - jail (current) use of anticoagulants Category: Medical
== END 2022-11-21 09:11 | disposition home or self-care (01) ==
LOC: HO.ACS 08:18
PROVIDERS: PCP Internal Medicine; Visit Provider Internal Medicine
DX: Z79.01 Long term (current) use of anticoagulants (principal)

== ENCOUNTER → 2022-11-21 08:18 | Outpatient (BNVA) | payer MEDICARE, SELFPAY | PROVIDERS: PCP Internal Medicine; Visit Provider Internal Medicine | DX: I48.91 Unspecified atrial fibrillation (principal); Z79.01 Long term (current) use of anticoagulants; Z51.81 Encounter for therapeutic drug level monitoring | CPT/HCPCS: 85610; 99211 ==

== ENCOUNTER 2022-12-16 07:40 | Outpatient (REF) | payer MEDICARE, SELFPAY | END 2022-12-16 07:41 | disposition home or self-care (01) | LOC: HO.MAMMO 07:40 | PROVIDERS: PCP Internal Medicine; Visit Provider Internal Medicine | DX: Z12.31 Encounter for screening mammogram for malignant neoplasm of breast (principal) | CPT/HCPCS: 77063; 77067 ==

== ENCOUNTER → 2022-12-16 07:45 | Outpatient (BNV) | payer MEDICARE, SELFPAY | PROVIDERS: PCP Internal Medicine; Visit Provider Radiology Diagnostic Radiology | DX: Z12.31 Encounter for screening mammogram for malignant neoplasm of breast (principal) | CPT/HCPCS: 77063; 77067 ==

== ENCOUNTER 2022-12-19 09:01 | Outpatient (AMB) | payer MEDICARE, SELFPAY ==
--- NOTE | 2022-12-19 09:13 | MHC.OFFVISCO ---
Intake Intake Visit Reasons: Anticoagulation Allergies oxycodone [From PERCODAN] Allergy (Intermediate, Verified 12/19/22 09:10) HIVES rosuvastatin [From Crestor] Adverse Reaction (Intermediate, Verified 12/19/22 09:10) body aches Hydrocodone-Acetaminophen Adverse Reaction (Unknown, Uncoded 12/19/22 09:10) nausea and vomiting Medication List - Last Reconciled 12/19/22 by Komal Thomas RN albuterol sulfate 90 mcg/actuation 2 inhalations inhalation Q6-8H PRN alirocumab (Praluent Pen) 75 mg subcut Q2W amoxicillin 2,000 mg (4 x 500 mg) PO .before dental visit PRN ascorbic acid (vitamin C) 1,000 mg PO DAILY cholecalciferol (vitamin D3) (Vitamin D3) 50 mcg PO DAILY docusate sodium 100 mg PO BEDTIME fluoxetine 20 mg PO QAM hydroxyzine HCl 12.5 - 25 mg PO DAILY PRN lamotrigine 250 mg PO BEDTIME latanoprost 0.005% 1 drp ophthalmic (eye) BEDTIME metoprolol tartrate 25 mg PO BID ruevftfpezgb-fbzrzblx-zbztxw (Multivitamin 50 Plus tablet) 1 tab PO DAILY polyethylene glycol 3350 (Miralax) 17 grams PO DAILY trazodone 100 - 200 mg PO BEDTIME PRN warfarin See Protocol Take 2-3 tabs daily based on INR results Nursing Note INR: 2.5- in therapeutic range Medications and supplements reviewed- no changes No changes in health, diet, medications, or supplements, Denies any signs and symptoms of bleeding or bruising or clotting. Bleeding, bruising, clotting discussed Nutritional guidance given Dose: 7.5mg x 3, 5mg x 4 F/U INR: 4 weeks Patient verbalizes understanding of instructions given Anti-Coag Initial Assessment Social Hx Patient Tobacco Use Status: Never used Tobacco alcohol intake: never Alcohol intake frequency: a few times a month Cardiovascular Hx: Arrhythmias (afib) and Varicose Veins Lung Disease HX: Asthma Musculoskeletal Hx: Arthritis Blood Disorder Hx: Hyperlipidemia GI Hx: Diverticulosis and Hemorrhoids Neurological Hx: Serious Head Injury Cancer HX: No Psych. Illness/Depression: Yes Coding Level of Care Code Est Patient Level 1 Diagnoses Current use of anticoagulant therapy Z79.01 Assessment & Plan Assessment & Plan (1) Current use of anticoagulant therapy: Code(s): Z79.01 - terminal gauger (current) use of anticoagulants Category: Medical
[2022-12-19 09:14] LABS: Prothrombin Time Whole Bld POC 29.8 sec (11.1-13.5); ~PT, ~INR - Anti Coag Clinic 2.5 (0.9-1.1)
== END 2022-12-19 09:17 | disposition home or self-care (01) ==
LOC: HO.ACS 09:01
PROVIDERS: PCP Internal Medicine; Visit Provider Internal Medicine
DX: Z79.01 Long term (current) use of anticoagulants (principal)

== ENCOUNTER → 2022-12-19 09:01 | Outpatient (BNVA) | payer MEDICARE, SELFPAY | PROVIDERS: PCP Internal Medicine; Visit Provider Internal Medicine | DX: I48.91 Unspecified atrial fibrillation (principal); Z79.01 Long term (current) use of anticoagulants; Z51.81 Encounter for therapeutic drug level monitoring | CPT/HCPCS: 85610; 99211 ==

== ENCOUNTER 2022-12-26 13:18 | Outpatient (AMB) | payer MEDICARE, SELFPAY ==
--- NOTE | 2022-12-26 13:24 | MHC.PC.OV ---
Vital Signs 12/26/22 13:25 Height 5 ft 8 in Weight 203 lb BMI 30.9 BP 110/66 Blood Pressure Location Lt brachial Position Sitting Pulse 64 Pulse Source Pulse Oximeter Pulse Oximetry (%) 95 Oxygen Delivery Method Room Air Intake Visit Reasons: fatigue, edema, heart racing Intake Note: Pt is here today for a sick visit. Pt c/o palpitations for the last week. Allergies oxycodone [From PERCODAN] Allergy (Intermediate, Verified 12/26/22 13:35) HIVES rosuvastatin [From Crestor] Adverse Reaction (Intermediate, Verified 12/26/22 13:35) body aches Hydrocodone-Acetaminophen Adverse Reaction (Unknown, Uncoded 12/26/22 13:35) nausea and vomiting Medication List - Last Reconciled 12/26/22 by Bonny Bueno MD albuterol sulfate 90 mcg/actuation 2 inhalations inhalation Q6-8H PRN alirocumab (Praluent Pen) 75 mg subcut Q2W amoxicillin 2,000 mg (4 x 500 mg) PO .before dental visit PRN ascorbic acid (vitamin C) 1,000 mg PO DAILY cholecalciferol (vitamin D3) (Vitamin D3) 50 mcg PO DAILY docusate sodium 100 mg PO BEDTIME fluoxetine 20 mg PO QAM hydroxyzine HCl 12.5 - 25 mg PO DAILY PRN lamotrigine 250 mg PO BEDTIME latanoprost 0.005% 1 drp ophthalmic (eye) BEDTIME metoprolol tartrate 25 mg PO BID bopnoqczquzy-rbpqriex-rwotjj (Multivitamin 50 Plus tablet) 1 tab PO DAILY polyethylene glycol 3350 (Miralax) 17 grams PO DAILY trazodone 100 - 200 mg PO BEDTIME PRN warfarin See Protocol Take 2-3 tabs daily based on INR results Tobacco use date assessed: 12/26/22 Fall risk assessment: No Falls in past year Last assessed Fall Risk: 12/26/22 Dental Screening Dental Screen Date: 12/26/22 Did you have a dental visit in the last 12 months?: Yes Did you have a dental problem in the last 6 months where you did not have access to dental care?: No Was dental information given to patient?: Patient has dentist HPI fatigue, edema, heart racing HPI Details Pt presents for a follow-up. Reports persistent palpitations occasionally induced by physical activity and stress. Patient has been under lot of stress related to her daughter. She follows up with psychiatrist and counselor for depression. Patient denies chest pain or shortness of breath associated with palpitations. The most recent lasted about 40 minutes. Patient has been taking metoprolol 25 mg twice a day and has a follow-up appointment with Cardiology in January. 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, 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 Are you a primary health care administrator to a significant other at home: Yes Do you presently have visiting nurse or other home services: No Alcohol intake: never Patient Tobacco Use Status: Never used Tobacco e-Cigarette/Vaping Use: Never Used service: No Current occupational status: retired 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 Trip Miller, Susan Hewitt, Raman Gibson and colleagues, with an educational celio from [employer]. Review of Systems Const All systems reviewed & are unremarkable except as noted in HPI and below Reports no additional complaints Eyes Reports no additional complaints ENT Reports no additional complaints Card Reports no additional complaints Resp Reports no additional complaints GI Reports no additional complaints Reports no additional complaints Physical exam (Primary Care) Vital Signs: Last Vital Signs Pulse 64 12/26/22 13:25 BP 110/66 12/26/22 13:25 Pulse Ox 95 12/26/22 13:25 Oxygen Delivery Method Room Air 10/02/23 13:25 BMI result Body Mass Index 30.9 Tobacco/Smoking Status: Tobacco use Status Tobacco use date assessed 12/26/22 12/26/22 13:37 Patient Tobacco Use Status Never used Tobacco 12/26/22 13:37 e-Cigarette/Vaping Use Never Used 12/26/22 13:24 Thrive Assessment: Date of Thrive Assessment Date Thrive assessed 05/20/22 12/26/22 13:24 Const General: no acute distress Neck Neck: Yes no lymphadenopathy and Yes supple Resp Effort & Inspection: normal respiratory effort Auscultation: clear to auscultation bilaterally Cardio Rhythm: regular rhythm Heart sounds: S1 normal heart sound present and S2 normal heart sound present GI Palpation (GI): Soft to palpation Assessment and Plan Assessment & Plan (1) Palpitations: Code(s): R00.2 - Palpitations Plan: Continue metoprolol and obtained Holter monitor before the visit with 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 Panel Fast Today E78.5 - Hyperlipidemia, unspecified, R00.2 - Palpitations TSH reflex Free T4 Today E78.5 - Hyperlipidemia, unspecified, R00.2 - Palpitations Lipid Panel Today E78.5 - Hyperlipidemia, unspecified, R00.2 - Palpitations Magnesium Today E78.5 - Hyperlipidemia, unspecified, R00.2 - Palpitations Coding Level of Care Code Est Pt Level 4 (75872) Diagnoses Palpitations R00.2 Hyperlipidemia E78.5 Depression F32.A
[2022-12-26 13:25] VITALS: BP 110/66; PULSE 64; O2SAT 95; BMI 30.9
== END 2022-12-26 14:09 | disposition home or self-care (01) ==
PROVIDERS: PCP Internal Medicine; Visit Provider Internal Medicine
DX: R00.2 Palpitations (principal); E78.5 Hyperlipidemia, unspecified; F32.A Depression, unspecified
CPT/HCPCS: 99214

== ENCOUNTER 2022-12-27 08:05 | Outpatient (REF) | payer MEDICARE, SELFPAY ==
[2022-12-27 12:51] LABS: Alanine Aminotransferase 27 U/L (0-31); Albumin Level 4.4 g/dL (3.5-5.0); Alkaline Phosphatase 79 U/L (39-117); Anion Gap 12 (12-20); Aspartate Amino Transferase 25 U/L (5-31); Bilirubin Total 0.6 mg/dL (0.0-1.0); Blood Urea Nitrogen 15 mg/dL (9-16); Calcium 10.1 mg/dL (8.4-10.2); Carbon Dioxide 31 mmol/L (22-29); Chloride 103 mmol/L (96-108); Cholesterol 224 mg/dL (<200); Estimated Glomerular Filt Rate > 60; Glucose Fasting 76 mg/dL (60-99); HDL Cholesterol 60 mg/dL (>40); LDL Cholesterol Calculated 138 mg/dL (<100); Magnesium 2.4 mg/dL (1.6-2.6); Potassium 4.4 mmol/L (3.3-5.1); Sodium 142 mmol/L (135-145); Total Protein 7.7 g/dL (6.5-8.0); Triglycerides 134 mg/dL (<150)
[2022-12-27 13:01] LABS: TSH reflex Free T4 1.78 uIU/mL (0.32-4.0)
== END 2022-12-27 08:06 | disposition home or self-care (01) ==
LOC: HO.HMGCLDS 08:05
PROVIDERS: PCP Internal Medicine; Visit Provider Internal Medicine
DX: R00.2 Palpitations (principal); E78.5 Hyperlipidemia, unspecified
CPT/HCPCS: 36415; 80053; 80061; 83735; 84443

== ENCOUNTER 2023-01-16 09:01 | Outpatient (AMB) | payer MEDICARE, SELFPAY ==
[2023-01-16 09:14] LABS: Prothrombin Time Whole Bld POC 25.4 sec (11.1-13.5); ~PT, ~INR - Anti Coag Clinic 2.1 (0.9-1.1)
--- NOTE | 2023-01-16 09:16 | MHC.OFFVISCO ---
Intake Intake Visit Reasons: Anticoagulation Allergies oxycodone [From PERCODAN] Allergy (Intermediate, Verified 01/16/23 09:08) HIVES rosuvastatin [From Crestor] Adverse Reaction (Intermediate, Verified 01/16/23 09:08) body aches Hydrocodone-Acetaminophen Adverse Reaction (Unknown, Uncoded 01/16/23 09:08) nausea and vomiting Medication List - Last Reconciled 01/16/23 by Ayaka Nguyen RN albuterol sulfate 90 mcg/actuation 2 inhalations inhalation Q6-8H PRN alirocumab (Praluent Pen) 75 mg subcut Q2W amoxicillin 2,000 mg (4 x 500 mg) PO .before dental visit PRN ascorbic acid (vitamin C) 1,000 mg PO DAILY cholecalciferol (vitamin D3) (Vitamin D3) 50 mcg PO DAILY docusate sodium 100 mg PO BEDTIME fluoxetine 20 mg PO QAM hydroxyzine HCl 12.5 - 25 mg PO DAILY PRN lamotrigine 250 mg PO BEDTIME latanoprost 0.005% 1 drp ophthalmic (eye) BEDTIME magnesium oxide 400 mg PO DAILY metoprolol tartrate 25 mg PO BID dfgeikztiuei-eqhuzztf-pfvhis (Multivitamin 50 Plus tablet) 1 tab PO DAILY polyethylene glycol 3350 (Miralax) 17 grams PO DAILY trazodone 100 - 200 mg PO BEDTIME PRN warfarin See Protocol Take 2-3 tabs daily based on INR results Nursing Note Amb to [facility] feeling ok except for a nasty cold Medications and supplements reviewed, sts she had a couple doses of [employer] cold med capsules (acetaminophen (can raise)Dextromethorphan HBr (no interaction per micromedex) Guaifenesin (no interaction)phenylephrine (no interaction) and sts she noticed this am that she missed warfarin last night No other changes in health, diet, medications, or supplements Denies any unusual signs and symptoms of bruising, bleeding Denies any new Chest pain, SOB, or clotting INR: 2.1 in therapeutic range Nutritional guidance given:no greens today then balance greens and reds in diet Dose: increase dose tomorrow to 7.5mg to make up some of missed dose otherwise continue usual dosing;7.5mg x 3 days and 5mg x 4 days F/U INR: 2 weeks to make sure chest cold (cough, yellow phlegm) has resolved, enc to call PCP if fever change in sputum, instructed to increase fluids, use inhaler ok to use cold med and call if any medication changes Patient verbalizes understanding of instructions given with accurate read back/ teach back of dosing Anti-Coag Initial Assessment Social Hx Patient Tobacco Use Status: Never used Tobacco alcohol intake: never Alcohol intake frequency: a few times a month Cardiovascular Hx: Arrhythmias (afib) and Varicose Veins Lung Disease HX: Asthma Musculoskeletal Hx: Arthritis Blood Disorder Hx: Hyperlipidemia GI Hx: Diverticulosis and Hemorrhoids Neurological Hx: Serious Head Injury Cancer HX: No Psych. 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
== END 2023-01-16 09:27 | disposition home or self-care (01) ==
LOC: HO.ACS 09:01
PROVIDERS: PCP Internal Medicine; Visit Provider Internal Medicine
DX: Z79.01 Long term (current) use of anticoagulants (principal)

== ENCOUNTER → 2023-01-16 09:23 | Outpatient (REF) | payer MEDICARE, SELFPAY ==
--- NOTE | 2023-01-16 09:26 | HM_ITS ---
* Total monitoring time 7 days. * Underlying rhythm is sinus with an average rate of 66/Min. Range 52 to 99/Min. * Atrial fibrillation noted with a burden of 4.3%. Longest episode 2 hours 42 minutes. Fastest 155/Min. * Occasional supraventricular ectopy. * No significant pauses or AV blocks. * Patient marker used once in association with atrial fibrillation/rapid rate. Diary symptom including racing heart/pressure correlates with this episode. MTDD
== END ==
LOC: HO.CARD 09:23
PROVIDERS: PCP Internal Medicine; Visit Provider Internal Medicine
DX: I48.91 Unspecified atrial fibrillation (principal); R00.2 Palpitations; Z51.81 Encounter for therapeutic drug level monitoring; Z79.01 Long term (current) use of anticoagulants
CPT/HCPCS: 85610; 93242; 99211

== ENCOUNTER → 2023-01-16 09:26 | Outpatient (BNV) | payer MEDICARE, SELFPAY | PROVIDERS: PCP Internal Medicine; Visit Provider Internal Medicine | DX: I48.0 Paroxysmal atrial fibrillation (principal) | CPT/HCPCS: 93244 ==

== ENCOUNTER 2023-01-17 19:52 | Emergency (ER) | payer MEDICARE, SELFPAY ==
--- NOTE | ~2023-01-17 | XR_ITS ---
EXAMINATION: XR CHEST CLINICAL INFORMATION: Shortness of breath. COMPARISON: 01/31/2021. TECHNIQUE: 2 views of the chest were obtained. FINDINGS: The cardiomediastinal silhouette is normal. There is no focal lung consolidation or pleural effusion. The bony structures and soft tissues are unremarkable. XR/XR chest 2V IMPRESSION: No active cardiopulmonary disease.
[2023-01-17 19:58] VITALS: BP 169/83; PULSE 61; RESP 20; TEMP 36.1; O2SAT 95; BMI 30.4
--- NOTE | 2023-01-17 19:59 | ECG_ITS ---
Test Reason : COUG/SOB Blood Pressure : / mmHG Vent. Rate : 061 BPM Atrial Rate : 061 BPM P-R Int : 132 ms QRS Dur : 084 ms QT Int : 428 ms P-R-T Axes : 068 108 006 degrees QTc Int : 430 ms Normal sinus rhythm Rightward axis RSR' or QR pattern in V1 suggests right ventricular conduction delay Low voltage QRS Pulmonary disease pattern Abnormal ECG When compared with ECG of 31-JAN-2021 11:19, Questionable change in QRS axis Referred By: Janeen Mcfarland Electronically Signed By:MINDI RANDLE MD
--- NOTE | 2023-01-17 20:00 | ED_ITS ---
HPI - URI/Sore Throat General Chief Complaint: Dyspnea Stated Complaint: Hard time breathing Time Seen by Provider: 01/18/23 01:01 Source: patient Mode of arrival: ambulatory History of Present Illness HPI Narrative: 67-year-old female who has underlying hypertension as well as atrial fibrillation for which she is currently taking Coumadin. Patient states her INR on Monday was 2.6. She reports that she has had a cough and congestion which started on and denies any recent sick contacts and denies any positive COVID-19 testing. She denies any associated fever chills, body aches Related Data Home Medications Medication Instructions Recorded Confirmed lamotrigine 100 mg tablet 250 mg PO BEDTIME 10/01/20 01/16/23 latanoprost 0.005 % eye drops 1 drp ophthalmic (eye) BEDTIME 10/01/20 01/16/23 trazodone 100 mg tablet 100 - 200 mg PO BEDTIME PRN Sleep 10/01/20 01/16/23 hydroxyzine HCl 25 mg tablet 12.5 - 25 mg PO DAILY PRN Anxiety 12/16/20 01/16/23 fluoxetine 20 mg capsule 20 mg PO QAM 12/01/21 01/16/23 ascorbic acid (vitamin C) 500 mg 1,000 mg PO DAILY 06/02/22 01/16/23 capsule cholecalciferol (vitamin D3) 50 50 mcg PO DAILY 06/08/22 01/16/23 mcg (2,000 unit) capsule (Vitamin D3) [id number]-[id number]-ehahml 1 tab PO DAILY 06/08/22 01/16/23 tablet (Multivitamin 50 Plus tablet) magnesium oxide 400 mg PO DAILY 12/27/22 01/16/23 Previous Rx's Medication Instructions Recorded docusate sodium 100 mg capsule 100 mg PO BEDTIME #90 caps 12/20/21 polyethylene glycol 3350 17 17 g PO DAILY #510 grams 12/20/21 gram/dose oral powder (Miralax) warfarin 2.5 mg tablet See Rx Instructions PO DAILY #250 06/29/22 tabs metoprolol tartrate 25 mg tablet 25 mg PO BID #60 tabs 07/15/22 amoxicillin 500 mg capsule 2,000 mg (4 x 500 mg) PO .before 08/09/22 dental visit PRN before dental procedure #4 caps albuterol sulfate 90 mcg/actuation 2 inh inhalation Q6-8H PRN 09/13/22 aerosol inhaler shortness of breath or wheezing #8.5 grams alirocumab 75 mg/mL subcutaneous 75 mg subcut Q2W #2 mL 12/23/22 pen injector (Praluent Pen) prednisone 50 mg tablet 50 mg PO DAILY 4 days #4 tabs 01/18/23 Allergies Allergy/AdvReac Type Severity Reaction Status Date / Time oxycodone [From PERCODAN] Allergy Intermediate HIVES Verified 01/16/23 09:08 rosuvastatin [From Crestor] AdvReac Intermediate body aches Verified 01/16/23 09:08 Hydrocodone-Acetaminophen AdvReac Unknown nausea and Uncoded 01/16/23 09:08 vomiting Review of Systems 2 Review of Systems: Pertinent positives and negatives as stated in [facility] Past Medical History Source: nursing notes reviewed Medical History (Updated 01/18/23 @ 02:00 by Bernie Samuel MD) Hypertension Asthma Depression Anxiety Chronic low back pain On anticoagulant therapy On beta francisco at home PAF (paroxysmal atrial fibrillation) Surgical History H/O colonoscopy History of evacuation of hematoma History of bowel resection History of knee surgery Family History Family History Father Myocardial infarction CVD (cardiovascular disease) Mother Mental health disorder Sister Mental health disorder Social History Social History Household Members: Spouse and Family 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:: , 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, 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, 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 Are you a primary assurance services manager health care to a significant other at home: Yes Do you presently have visiting nurse or other home services: No Alcohol intake: current Alcohol intake frequency: a few times a month Patient Tobacco Use Status: Never used Tobacco Smoked in Last 30 Days: No e-Cigarette/Vaping Use: Never Used Use of substances other than those prescribed or required for medical reasons: No Advance Directives: No Advance Directives Information Provided: No service: No Current occupational status: retired 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 GENERAL: Well developed, well nourished, in no acute distress. HEAD: Normocephalic/atraumatic EYES: PERRLA, EOMI EARS: Ext canals without abnormality NOSE: Nares patent bilateral OROPHARYNX: no oral lesions noted, posterior pharynx clear NECK: Supple, no adenopathy LUNGS: Normal breath sounds. No adventitious sounds or accessory muscle use. SpO2<98> CARDIOVASCULAR: Regular rate and rhythm without noted murmurs, no JVD or lower extremity edema. ABDOMEN: Soft, non-tender, non-distended with bowel sounds. MUSCULOSKELETAL: No tenderness, deformities, or effusions noted on gross inspection. EXTREMITIES: No cyanosis, clubbing or edema. SKIN: Inspection of the skin reveals no rashes NEUROLOGIC: Alert and oriented x 4. Strength and sensation to light touch were grossly intact x 4. Course Course Course Narrative: This is a rapid medical exam. deferred additional HPI, ROS, PE to primary provider. 67 yo female with history of asthma, atrial fibrillation on Coumadin, hyperlipidemia, anxiety and depression here with URI symptoms, SOB since Monday. Will obtain CXR, EKG, labs, viral testing VSS Medical Decision Making Medical Decision Making MDM Narrative: 67-year-old female with history and clinical presentation, DDX: Viral syndrome, asthma, musculoskeletal pain/costochondritis, pneumonia, low clinical suspicion for ACS, possible atrial fibrillation with RVR. My clinical exam patient has good lung excursion, she is not tachypneic, nor she tachycardic and she is oxygenating well on room air. I have no clinical suspicion for CHF this time. I reviewed all investigations and hematologic indices demonstrate a subtle leukopenia but otherwise grossly within normal limits without anemia/thrombocytopenia/left shift. Patient's coagulation studies are somewhat elevated as expected given use of chronic anticoagulation with Coumadin. Chemistry indices are grossly within normal limits without ADILIA or electrolyte/liver enzyme abnormalities. High sensitivity troponin is undetectable in patient had no complaints of cardiac type pain. Chest x-ray is negative for infiltrate and otherwise my interpretation is in agreement with radiology's impression. Viral testing is negative for influenza and COVID-19. It is my interpretation that patient has likely suffered from a viral illness and is having a very mild exacerbation of her underlying asthma due to the significant coughing. Patient will receive a DuoNeb as well as be started on a short course of steroids. All results and findings were discussed with her at bedside and she is discharged home in stable condition. Differential Diagnosis Differential Diagnoses: The differential diagnosis associated with the presentation includes Please see the discussion above Admission/Observation Consideration of admission/observation: Escalation of care including admission/observation considered Please see the discussion above Lab Data MDM Lab Attestation statement: I reviewed the patient's lab results. Please see the discussion above 01/17/23 21:05 01/17/23 21:05 Labs: Lab Results 01/17/23 Range/Units 21:05 WBC 4.7 L (4.8-10.8) X10*3/uL RBC 4.49 (4.20-5.50) X10*6/uL Hgb 14.1 (12.0-16.0) g/dl Hct 41.8 (37.0-47.0) % MCV 93.1 (80.0-98.0) fL MCH 31.4 (27.0-33.0) pg MCHC 33.7 (31.0-35.0) g/dl RDW 12.7 (11.0-16.0) % Plt Count 174 (160-400) X10*3/uL MPV 9.5 (9.4-12.3) fL Immature Gran % (Auto) 0.2 (0.0-0.4) % Neut % (Auto) 50.2 (45-73) % Lymph % (Auto) 33.8 (20-40) % [place] % (Auto) 7.9 (2-11) % Eos % (Auto) 7.3 H (0-4) % Baso % (Auto) 0.6 (0-2) % Lymph # (Auto) 1.6 (1.2-4.9) X10*3/uL [place] # (Auto) 0.4 (0.1-1.2) X10*3/uL Eos # (Auto) 0.3 (0.0-0.4) X10*3/uL Baso # (Auto) 0.0 (0.0-0.2) X10*3/uL Abs Immat Gran (auto) 0.01 (0.00-0.03) X10*3/uL Absolute Neuts (auto) 2.4 (2.0-8.3) x10*3/uL Absolute Nucleated RBC 0.000 (0.0-0.012) X10*3/uL Nucleated RBC % (auto) 0.0 (0.0-0.2) /100WBC PT 21.2 H (11.1-13.3) SEC INR 1.7 H (0.9-1.1) Sodium 144 (135-145) mmol/L Potassium 4.4 (3.3-5.1) mmol/L Chloride 104 (96-108) mmol/L Carbon Dioxide 28 (22-29) mmol/L Anion Gap 16 (12-20) BUN 10 (9-16) mg/dL Creatinine 0.75 (0.5-1.4) mg/dL Estim Creat Clear Calc 86.9 Estimated GFR > 60 Random Glucose 93 (60-115) mg/dL Calcium 10.2 (8.4-10.2) mg/dL Total Bilirubin 0.4 (0.0-1.0) mg/dL Direct Bilirubin 0.2 (0.0-0.5) mg/dL AST 25 (5-31) U/L ALT 28 (0-31) U/L Alkaline Phosphatase 77 (39-117) U/L Troponin I High Sens < 2.7 (<3.5-17.0) ng/L Total Protein 7.6 (6.5-8.0) g/dL Albumin 4.3 (3.5-5.0) g/dL Influenza Type A (PCR) NEGATIVE (Negative) Influenza Type B (PCR) NEGATIVE (Negative) RSV RNA Qual (PCR) NEGATIVE (Negative) SARS-CoV-2 RNA (RT-PCR) NEGATIVE (Negative) Independent Interpretation I performed an independent interpretation of an: EKG Interpretation: Normal sinus rhythm, HR-61, no STEMI, FL/QRS/QTC is within normal limits. Radiology Impression Discussion of test interpretation with radiology: I have reviewed the radiologist's reading. Radiologist Impression: Please see the discussion above External Record Review External record reviewed: Outpatient record, Prior outpatient labs and Prior outpatient radiology Chronic Conditions Patient?s care impacted by: Hypertension and Other Paroxysmal atrial fibrillation Discharge Plan Discharge Clinical Impression: Asthma, Viral illness Patient Disposition: Home, Self-Care Instructions: Asthma (ED), Viral Syndrome (ED) Additional Instructions: 1. Resume all home medications as prescribed, especially in here to the use of your inhaler for the next 24-48 hours. 2. Please complete the short course of steroids as prescribed. 3. Follow-up with your primary care provider 1st thing in the morning by calling the office. Prednisone can affect her Coumadin, so please inform your physician as they may wish to have you check your INR more frequently. Return to the ER for any worsening symptoms. Prescriptions: New prednisone 50 mg tablet 50 mg PO DAILY 4 Days Qty: 4 0RF No Action warfarin 2.5 mg tablet See Rx Instructions PO DAILY Qty: 250 3RF Protocol: Dose Management Condition: Monday (Week One) Dose/Route: 0 mg Instruction: 0 tablets Condition: Monday Dose/Route: 7.5 mg Instruction: 3 x 2.5 mg tablets Condition: Monday Dose/Route: 7.5 mg Instruction: 3 x 2.5 mg tablets Condition: Monday Dose/Route: 7.5 mg Instruction: 3 x 2.5 mg tablets Condition: Dose/Route: 5 mg Instruction: 2 x 2.5 mg tablets Condition: Monday Dose/Route: 7.5 mg Instruction: 3 x 2.5 mg tablets Condition: Monday Dose/Route: 5 mg Instruction: 2 x 2.5 mg tablets Condition: Monday (Week Two) Dose/Route: 5 mg Instruction: 2 x 2.5 mg tablets Condition: Monday Dose/Route: 7.5 mg Instruction: 3 x 2.5 mg tablets Condition: Monday Dose/Route: 5 mg Instruction: 2 x 2.5 mg tablets Condition: Monday Dose/Route: 7.5 mg Instruction: 3 x 2.5 mg tablets Condition: Dose/Route: 5 mg Instruction: 2 x 2.5 mg tablets Condition: Monday Dose/Route: 7.5 mg Instruction: 3 x 2.5 mg tablets Condition: Monday Dose/Route: 5 mg Instruction: 2 x 2.5 mg tablets Protocol Text: Adjustment Start Date: Monday01/16/23 INR Value: 2.1 INR Date: 01/16/23 Recheck Date: 01/30/23 Additional Instructions: INR is in range dose was missed last night so increase dose tomorrow to 7.5mg, follow dosing sheet balance greens and reds CALL IF ANY NEW MEDICATIONS Rx Instructions: Take 2-3 tabs daily based on INR results metoprolol tartrate 25 mg tablet 25 mg PO BID Qty: 60 6RF albuterol sulfate 90 mcg/actuation HFA aerosol inhaler 2 inh inhalation Q6-8H PRN (Reason: shortness of breath or wheezing) Qty: 8.5 2RF Praluent Pen 75 mg/mL pen injector 75 mg subcut Q2W Qty: 2 4RF Patient Comments: monday every two weeks Rx Instructions: inject into abdomen, thigh, or upper arm (deltoid muscle); rotate sites magnesium oxide 400 mg magnesium capsule 400 mg PO DAILY cholecalciferol (vitamin D3) [Vitamin D3] 50 mcg (2,000 unit) Capsule 50 mcg PO DAILY Multivitamin 50 Plus Tablet 1 tab PO DAILY fluoxetine 20 mg capsule 20 mg PO QAM amoxicillin 500 mg capsule 2,000 mg PO .before dental visit PRN (Reason: before dental procedure) Qty: 4 2RF lamotrigine 100 mg tablet 250 mg PO BEDTIME latanoprost 0.005 % drops 1 drp ophthalmic (eye) BEDTIME trazodone 100 mg tablet 100 - 200 mg PO BEDTIME PRN (Reason: Sleep) hydroxyzine HCl 25 mg tablet 12.5 - 25 mg PO DAILY PRN (Reason: Anxiety) polyethylene glycol 3350 [Miralax] 17 gram/dose powder 17 g PO DAILY Qty: 510 2RF docusate sodium 100 mg capsule 100 mg PO BEDTIME Qty: 90 3RF ascorbic acid (vitamin C) 500 mg capsule 1,000 mg PO DAILY Referrals: Bonny Bueno MD [Primary Care Provider] -
[2023-01-17 21:11] LABS: MANUAL DIFF FLAG NO
[2023-01-17 21:12] LABS: Basophils Percent Auto 0.6 % (0-2); Eosinophils Absolute Auto 0.3 X10*3/uL (0.0-0.4); Eosinophils Percent Auto 7.3 % (0-4); Hematocrit 41.8 % (37.0-47.0); Hemoglobin 14.1 g/dl (12.0-16.0); Imm Gran Abs Auto 0.01 X10*3/uL (0.00-0.03); Imm Gran Pct Auto 0.2 % (0.0-0.4); Lymphocytes Absolute Auto 1.6 X10*3/uL (1.2-4.9); Lymphocytes Percent Auto 33.8 % (20-40); Mean Corpuscular HGB Conc 33.7 g/dl (31.0-35.0); Mean Corpuscular Hemoglobin 31.4 pg (27.0-33.0); Mean Corpuscular Volume 93.1 fL (80.0-98.0); Mean Platelet Volume 9.5 fL (9.4-12.3); Monocytes Absolute Auto 0.4 X10*3/uL (0.1-1.2); Monocytes Percent Auto 7.9 % (2-11); Neutrophils Absolute Auto 2.4 x10*3/uL (2.0-8.3); Neutrophils Percent Auto 50.2 % (45-73); Platelet Count 174 X10*3/uL (160-400); Red Blood Count 4.49 X10*6/uL (4.20-5.50); Red Cell Distribution Width 12.7 % (11.0-16.0); White Blood Count 4.7 X10*3/uL (4.8-10.8)
[2023-01-17 21:29] LABS: Alanine Aminotransferase 28 U/L (0-31); Albumin Level 4.3 g/dL (3.5-5.0); Alkaline Phosphatase 77 U/L (39-117); Anion Gap 16 (12-20); Aspartate Amino Transferase 25 U/L (5-31); Bilirubin Direct 0.2 mg/dL (0.0-0.5); Bilirubin Total 0.4 mg/dL (0.0-1.0); Blood Urea Nitrogen 10 mg/dL (9-16); Calcium 10.2 mg/dL (8.4-10.2); Carbon Dioxide 28 mmol/L (22-29); Chloride 104 mmol/L (96-108); Creatinine Clr Calc Pharmacy 86.9; Estimated Glomerular Filt Rate > 60; Glucose Random 93 mg/dL (60-115); Potassium 4.4 mmol/L (3.3-5.1); Sodium 144 mmol/L (135-145); Total Protein 7.6 g/dL (6.5-8.0)
[2023-01-17 21:37] LABS: Troponin-I High Sensitivity < 2.7 ng/L (<3.5-17.0)
[2023-01-17 21:48] LABS: Influenza A PCR NEGATIVE (Negative); Influenza B PCR NEGATIVE (Negative); Resp Syncy Virus RNA Qual PCR NEGATIVE (Negative); SARS COV2 PCR INHOUSE NEGATIVE (Negative)
[2023-01-17 22:12] LABS: INTERNATIONAL NORM RATIO 1.7 (0.9-1.1); Prothrombin Time 21.2 SEC (11.1-13.3)
[2023-01-17 23:54] VITALS: BP 159/84; PULSE 60; RESP 18; TEMP 36.6; O2SAT 98
--- NOTE | 2023-01-18 00:15 | PC.NURSE ---
Pt reports progressive non-productive cough since Monday. Course congestion to lower bases, reports she has been using rescue inhaler over the last couple of days with no relief and chest pain due to coughing frequently. No fever. Pt educated on use of call nevarez.
[2023-01-18] MEDS: predniSONE 10 MG TABLET 50 MG PO (02:00)
[2023-01-18] MEDS: Albuterol/Iprat 2.5/0.5MG 3 ML AMPUL.NEB INHALE (02:23)
[2023-01-18 02:24] VITALS: PULSE 60; RESP 18; O2SAT 98
[2023-01-18 03:04] VITALS: BP 135/70; PULSE 72; RESP 16; TEMP 36.6; O2SAT 97
== END 2023-01-18 03:10 | disposition home or self-care (01) ==
PROVIDERS: Nurse Practitioner Family; Emergency Provider Student in an Organized Health Care Education/Training Program; PCP Internal Medicine
DX: B34.9 Viral infection, unspecified (principal); J45.909 Unspecified asthma, uncomplicated; R06.02 Shortness of breath; Z20.822 Contact with and (suspected) exposure to COVID-19; Z20.828 Contact with and (suspected) exposure to other viral communicable diseases; I10 Essential (primary) hypertension; E78.5 Hyperlipidemia, unspecified; I48.0 Paroxysmal atrial fibrillation; Z79.01 Long term (current) use of anticoagulants; Z79.899 Other long term (current) drug therapy
CPT/HCPCS: 0241U; 36415; 71046; 80048; 80076; 84484; 85025; 85610; 93005; 94640; 99284; 99285

== ENCOUNTER 2023-01-30 08:18 | Outpatient (AMB) | payer MEDICARE, SELFPAY ==
[2023-01-30 08:20] VITALS: BP 118/76; PULSE 64; BMI 31.2
--- NOTE | 2023-01-30 08:20 | A.OFFVIS_ITS ---
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 Required: No Accompanied by: Self / Same As Patient Allergies oxycodone [From PERCODAN] Allergy (Intermediate, Verified 01/30/23 08:22) HIVES rosuvastatin [From Crestor] Adverse Reaction (Intermediate, Verified 01/30/23 08:22) body aches Hydrocodone-Acetaminophen Adverse Reaction (Unknown, Uncoded 01/30/23 08:22) nausea and vomiting Medication List - Last Reconciled 01/30/23 by Vladimir Manley MD albuterol sulfate 90 mcg/actuation 2 inhalations inhalation Q6-8H PRN alirocumab (Praluent Pen) 75 mg subcut Q2W amoxicillin 2,000 mg (4 x 500 mg) PO .before dental visit PRN ascorbic acid (vitamin C) 1,000 mg PO DAILY cholecalciferol (vitamin D3) (Vitamin D3) 50 mcg PO DAILY docusate sodium 100 mg PO BEDTIME fluoxetine 20 mg PO QAM hydroxyzine HCl 12.5 - 25 mg PO DAILY PRN lamotrigine 250 mg PO BEDTIME latanoprost 0.005% 1 drp ophthalmic (eye) BEDTIME magnesium oxide 400 mg PO DAILY metoprolol tartrate 25 mg PO BID [id number]-[id number]-[id number] (Multivitamin 50 Plus tablet) 1 tab PO DAILY polyethylene glycol 3350 (Miralax) 17 grams PO DAILY trazodone 100 - 200 mg PO BEDTIME PRN warfarin See Protocol Take 2-3 tabs daily based on INR results HPI HPI Comments History of Present Illness Details Rowena returns for follow-up regarding atrial fibrillation. To recall, she had atrial fibrillation ablation 2013. She has some palpitations following that thought to be atrial fibrillation and hence was maintained on flecainide for some time which was later stopped. She was actually doing okay from atrial fibrillation standpoint but more recently started having episodes of the same. Then started beta-blockers with some improvement. Still gets some palpitations intermittently. Otherwise generally doing well. She was on pravastatin but the LFTs were apparently abnormal and that led to holding it but the LDL went up really high. She is now on Praluent. 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, 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 Are you a primary resident care manager to a significant other at home: Yes Do you presently have visiting nurse or other home services: No Alcohol intake: current Alcohol intake frequency: a few times a month Patient Tobacco Use Status: Never used Tobacco e-Cigarette/Vaping Use: Never Used service: No Current occupational status: retired 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 Current occupational exposures/hazards: No Cognitive needs: No Hearing needs: No Vision needs: Yes Review of Systems Const Denies weakness ENT Denies dizziness Card Denies chest pain, Denies chest pain with activity, Denies syncope, Denies rapid heart rate, Denies pedal edema, Denies edema, Denies leg edema, Denies lightheadedness, Denies palpitations, Denies dyspnea, Denies dyspnea on exertion and Denies orthopnea Resp Denies cough, Denies dyspnea and Denies dyspnea on exertion GI Denies hematochezia and Denies change in stool character Musc Denies abnormal gait, Denies muscle cramps, Denies muscle weakness, Denies numbness, Denies radiating pain into limb and Denies tingling Neuro Denies abnormal gait, Denies dizziness, Denies syncope, Denies numbness, Denies tingling and Denies weakness Endo Denies palpitations Physical Exam Vital Signs: Last Vital Signs Pulse 64 01/30/23 08:20 BP 118/76 01/30/23 08:20 BMI result Body Mass Index 31.2 Const General: comfortable and no acute distress Orientation/consciousness: patient oriented x3 HEENT Other: Unremarkable Head: Yes normal to inspection Neck Neck: Yes normal visual inspection Chest Chest palpation & inspection: normal inspection of the chest Resp Auscultation: clear to auscultation bilaterally Cardio Palpation: normal PMI Heart sounds: S1 normal heart sound present, S2 normal heart sound present, no gallops, no murmurs and no rubs GI Palpation (GI): Soft to palpation Back/Spine/Pelvis Other: unremarkable Skin General skin exam: no rashes or lesions noted Neuro General: patient oriented x3 Extrem General: Yes normal to inspection Psych Mental Status: mental status grossly normal Assessment & Plan Assessment & Plan (1) PAF (paroxysmal atrial fibrillation): Code(s): I48.0 - Paroxysmal atrial fibrillation Plan: History of ablation around 2013. In the recent Holter, final report still pending but preliminary review shows atrial fibrillation with a burden of less than 5%. Otherwise in sinus rhythm. We can increase the beta-francisco dosing. Continue with anticoagulation. She is on warfarin. Eliquis too expensive. If she still gets episodes, possibly put her back on flecainide or use Multaq. Ablation on the possibility. Check sleep study. (2) Atherosclerotic cardiovascular disease: Code(s): I25.10 - Atherosclerotic heart disease of [place] coronary artery without angina pectoris Plan: Patient has undergone coronary CTA. She has nonobstructive disease in the LAD, diagonal, RCA. Myocardial perfusion imaging study from 2020 showed normal perfusion. Cholesterol is still on the higher side we can increase the dose of Praluent. History of abnormal LFTs with statins. (3) Other and unspecified hyperlipidemia: Code(s): E78.5 - Hyperlipidemia, unspecified Plan: As above, we can increase the Praluent dose. Most recent LDL is still on the higher side at 138 mg/dL. However, improved from before, where it was as high as 249 mg/dL. Orders: Orders RT home sleep study Today G47.33 - Obstructive sleep apnea (adult) (pediatric) Medications: New metoprolol tartrate 50 mg PO BID 180 tabs 3RF 90 days Discontinued 2 metoprolol tartrate Discontinued Reason: Doctor's Order 25 mg PO BID 180 tabs 1RF Coding Level of Care Code Est Pt Level 4 (51261) Diagnoses PAF (paroxysmal atrial fibrillation) I48.0 Atherosclerotic cardiovascular disease I25.10 Other and unspecified hyperlipidemia E78.5
== END 2023-01-30 08:36 | disposition home or self-care (01) ==
PROVIDERS: PCP Internal Medicine; Visit Provider Internal Medicine
DX: I48.0 Paroxysmal atrial fibrillation (principal); I25.10 Atherosclerotic heart disease of native coronary artery without angina pectoris; E78.5 Hyperlipidemia, unspecified
CPT/HCPCS: 99214

== ENCOUNTER → 2023-01-30 08:18 | Outpatient (BNVA) | payer MEDICARE, SELFPAY | PROVIDERS: PCP Internal Medicine; Visit Provider Internal Medicine | DX: I48.0 Paroxysmal atrial fibrillation (principal); I25.10 Atherosclerotic heart disease of native coronary artery without angina pectoris; E78.5 Hyperlipidemia, unspecified; Z51.81 Encounter for therapeutic drug level monitoring; Z79.01 Long term (current) use of anticoagulants | CPT/HCPCS: 85610; 99211; 99212 ==

== ENCOUNTER 2023-01-30 08:42 | Outpatient (AMB) | payer MEDICARE, SELFPAY ==
--- NOTE | 2023-01-30 09:39 | MHC.OFFVISCO ---
Intake Intake Visit Reasons: Anticoagulation Allergies oxycodone [From PERCODAN] Allergy (Intermediate, Verified 01/30/23 09:36) HIVES rosuvastatin [From Crestor] Adverse Reaction (Intermediate, Verified 01/30/23 09:36) body aches Hydrocodone-Acetaminophen Adverse Reaction (Unknown, Uncoded 01/30/23 09:36) nausea and vomiting Medication List - Last Reconciled 01/30/23 by Gregoria Dorado RN albuterol sulfate 90 mcg/actuation 2 inhalations inhalation Q6-8H PRN alirocumab (Praluent Pen) 75 mg subcut Q2W amoxicillin 2,000 mg (4 x 500 mg) PO .before dental visit PRN ascorbic acid (vitamin C) 1,000 mg PO DAILY cholecalciferol (vitamin D3) (Vitamin D3) 50 mcg PO DAILY docusate sodium 100 mg PO BEDTIME fluoxetine 20 mg PO QAM hydroxyzine HCl 12.5 - 25 mg PO DAILY PRN lamotrigine 250 mg PO BEDTIME latanoprost 0.005% 1 drp ophthalmic (eye) BEDTIME magnesium oxide 400 mg PO DAILY metoprolol tartrate 50 mg PO BID 90 days [id number]-xgbtel (Multivitamin 50 Plus tablet) 1 tab PO DAILY polyethylene glycol 3350 (Miralax) 17 grams PO DAILY prednisone 50 mg PO DAILY trazodone 100 - 200 mg PO BEDTIME PRN warfarin See Protocol Take 2-3 tabs daily based on INR results Nursing Note INR: 3.2 in therapeutic range Medications and supplements reviewed recovering from URI and prednisone 50mg Denies any signs and symptoms of bleeding or bruising or clotting. Bleeding, bruising, clotting discussed Nutritional guidance given chepe , review food list with holidays and season changes Dose: keep same 7.5mg x 3 days/ 5mg x 4 days F/U INR: 1 month Patient verbalizes understanding of instructions given Anti-Coag Initial Assessment Social Hx Patient Tobacco Use Status: Never used Tobacco alcohol intake: current Alcohol intake frequency: a few times a month Cardiovascular Hx: Arrhythmias (afib) and Varicose Veins Lung Disease HX: Asthma Musculoskeletal Hx: Arthritis Blood Disorder Hx: Hyperlipidemia GI Hx: Diverticulosis and Hemorrhoids Neurological Hx: Serious Head Injury Cancer HX: No Psych. Illness/Depression: Yes Coding Level of Care Code Est Patient Level 1 Diagnoses Current use of anticoagulant therapy Z79.01 Assessment & Plan Assessment & Plan (1) Current use of anticoagulant therapy: Code(s): Z79.01 - roasterman (current) use of anticoagulants Category: Medical
[2023-01-30 09:40] LABS: Prothrombin Time Whole Bld POC 36.9 sec (11.1-13.5); ~PT, ~INR - Anti Coag Clinic 3.1 (0.9-1.1)
== END 2023-01-30 09:48 | disposition home or self-care (01) ==
LOC: HO.ACS 08:42
PROVIDERS: PCP Internal Medicine; Visit Provider Internal Medicine
DX: Z79.01 Long term (current) use of anticoagulants (principal)

== ENCOUNTER 2023-02-07 11:50 | Outpatient (AMB) | payer MEDICARE, SELFPAY ==
[2023-02-07 11:51] VITALS: BP 130/72; PULSE 52; O2SAT 95; BMI 31.0
--- NOTE | 2023-02-07 11:52 | MHC.PC.OV ---
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 PATIENT HAS BEEN UNDER LOT OF STRESS RELATED TO HER DAUGHTER living at home and suffering from bipolar disorder. Palpitations improved since patient has increased metoprolol dose to 50 mg bid but reports occasionally low blood pressure 100/70 and heart rate in low 50s and feeling tired. 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 Are you a primary administrator health care facility to a significant other at home: Yes Do you presently have visiting nurse or other home services: No Alcohol intake: current Alcohol intake frequency: a few times a month Patient Tobacco Use Status: Never used Tobacco e-Cigarette/Vaping Use: Never Used service: No Current occupational status: retired 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 Review of Systems Const All systems reviewed & are unremarkable except as noted in HPI and below Reports no additional complaints Eyes Reports no additional complaints ENT Reports no additional complaints Card Reports no additional complaints Resp Reports no additional complaints GI Reports no additional complaints Reports no additional complaints Physical exam (Primary Care) Vital Signs: Last Vital Signs Pulse 47 L 02/07/23 11:51 BP 130/72 02/07/23 11:51 Pulse Ox 91 L 02/07/23 11:51 Oxygen Delivery Method Room Air 02/07/23 11:51 BMI result Body Mass Index 31.0 Tobacco/Smoking Status: Tobacco use Status Tobacco use date assessed 12/26/22 12/26/22 13:37 Patient Tobacco Use Status Never used Tobacco 01/30/23 09:40 e-Cigarette/Vaping Use Never Used 12/26/22 13:24 Thrive Assessment: Date of Thrive Assessment Date Thrive assessed 05/20/22 12/26/22 13:24 Const General: no acute distress HENMT Head: Yes normal to inspection Ears: hearing grossly normal bilaterally Face and sinus: Yes normal facial exam Mouth: Normal oral and palatal mucosa present Throat: Yes posterior oropharynx normal Eyes General: appearance normal, both eyes and all related structures Neck Neck: Yes no lymphadenopathy and Yes supple Resp Effort & Inspection: normal respiratory effort Auscultation: clear to auscultation bilaterally Cardio Rhythm: regular rhythm Heart sounds: S1 normal heart sound present and S2 normal heart sound present GI Inspection: Yes normal to inspection Palpation (GI): Soft to palpation Percussion: Yes normal to percussion Auscultation: normal bowel sounds Assessment and Plan Assessment & Plan (1) Depression: Comment: f/u with psychiatry Code(s): F32.A - Depression, unspecified Plan: cont meds (2) Annual physical exam: Code(s): Z00.00 - Encounter for general adult medical examination without abnormal findings Plan: Well-balanced and regular physical activity discussed with the patient. She is up-to-date with the mammogram (3) Hyperlipidemia: Comment: Atorvastatin was stopped by Cardiology, intolerant to Crestor(myalgia), on Praluent since 08/16 Code(s): E78.5 - Hyperlipidemia, unspecified Plan: Continue Praluent and check lipid profile in 3 months (4) PAF (paroxysmal atrial fibrillation): Code(s): I48.0 - Paroxysmal atrial fibrillation Plan: Continue current medications and anticoagulation and follow-up with Cardiology (5) Palpitations: Code(s): R00.2 - Palpitations Plan: Patient will try to take 1-1/2 tablet of 25 mg of metoprolol twice a day and will monitor her blood pressure and heart rate. She will follow-up in 3 months Orders: Orders Comprehensive [place]. Panel Fast 3 Months E78.5 - Hyperlipidemia, unspecified, I48.0 - Paroxysmal atrial fibrillation, Z00.00 - Encounter for general adult medical examination without abnormal findings Complete Blood Count Auto Diff 3 Months E78.5 - Hyperlipidemia, unspecified, I48.0 - Paroxysmal atrial fibrillation, Z00.00 - Encounter for general adult medical examination without abnormal findings Lipid Panel 3 Months E78.5 - Hyperlipidemia, unspecified, I48.0 - Paroxysmal atrial fibrillation, Z00.00 - Encounter for general adult medical examination without abnormal findings TSH reflex Free T4 3 Months E78.5 - Hyperlipidemia, unspecified, I48.0 - Paroxysmal atrial fibrillation, Z00.00 - Encounter for general adult medical examination without abnormal findings Coding Level of Care Code Est Pt Prev Care >65y(49449) Diagnoses Depression F32.A Annual physical exam Z00.00 Hyperlipidemia E78.5 PAF (paroxysmal atrial fibrillation) I48.0 Palpitations R00.2
== END 2023-02-07 12:52 | disposition home or self-care (01) ==
PROVIDERS: Visit Provider Internal Medicine
DX: F32.A Depression, unspecified (principal); Z00.00 Encounter for general adult medical examination without abnormal findings; E78.5 Hyperlipidemia, unspecified; I48.0 Paroxysmal atrial fibrillation; R00.2 Palpitations
CPT/HCPCS: 99397

== ENCOUNTER → 2023-02-27 08:02 | Outpatient (REF) | payer MEDICARE, SELFPAY | LOC: HO.SL 08:02 | PROVIDERS: PCP Internal Medicine; Visit Provider Internal Medicine | DX: I48.91 Unspecified atrial fibrillation (principal); Z51.81 Encounter for therapeutic drug level monitoring; Z79.01 Long term (current) use of anticoagulants; G47.33 Obstructive sleep apnea (adult) (pediatric); R06.83 Snoring | CPT/HCPCS: 85610; 95806; 99211 ==

== ENCOUNTER → 2023-02-27 08:16 | Outpatient (BNV) | payer MEDICARE, SELFPAY | PROVIDERS: PCP Internal Medicine; Visit Provider Internal Medicine | DX: R06.83 Snoring (principal) | CPT/HCPCS: 95806 ==

== ENCOUNTER 2023-02-27 08:19 | Outpatient (AMB) | payer MEDICARE, SELFPAY ==
--- NOTE | 2023-02-27 08:40 | MHC.OFFVISCO ---
Intake Intake Visit Reasons: Anticoagulation Allergies oxycodone [From PERCODAN] Allergy (Intermediate, Verified 02/27/23 08:35) HIVES rosuvastatin [From Crestor] Adverse Reaction (Intermediate, Verified 02/27/23 08:35) body aches Hydrocodone-Acetaminophen Adverse Reaction (Unknown, Uncoded 02/27/23 08:35) nausea and vomiting Medication List - Last Reconciled 02/27/23 by Komal Thomas RN albuterol sulfate 90 mcg/actuation 2 inhalations inhalation Q6-8H PRN alirocumab 150 mg subcut Q2W amoxicillin 2,000 mg (4 x 500 mg) PO .before dental visit PRN ascorbic acid (vitamin C) 1,000 mg PO DAILY cholecalciferol (vitamin D3) (Vitamin D3) 50 mcg PO DAILY docusate sodium 100 mg PO BEDTIME fluoxetine 20 mg PO QAM hydroxyzine HCl 12.5 - 25 mg PO DAILY PRN lamotrigine 250 mg PO BEDTIME latanoprost 0.005% 1 drp ophthalmic (eye) BEDTIME magnesium oxide 400 mg PO DAILY metoprolol tartrate 50 mg PO BID 90 days [id number] (Multivitamin 50 Plus tablet) 1 tab PO DAILY polyethylene glycol 3350 (Miralax) 17 grams PO DAILY trazodone 100 - 200 mg PO BEDTIME PRN warfarin See Protocol Take 2-3 tabs daily based on INR results Nursing Note INR: 2.4- in therapeutic range of 2-3 Medications and supplements reviewed- no changes No changes in health, diet, medications, or supplements, Denies any signs and symptoms of bleeding or bruising or clotting. Bleeding, bruising, clotting discussed Nutritional guidance given Dose: 7.5mg x 2, 5mg x 4 F/U INR: 4 weeks Patient verbalizes understanding of instructions given Anti-Coag Initial Assessment Social Hx Patient Tobacco Use Status: Never used Tobacco alcohol intake: current Alcohol intake frequency: a few times a month Cardiovascular Hx: Arrhythmias (afib) and Varicose Veins Lung Disease HX: Asthma Musculoskeletal Hx: Arthritis Blood Disorder Hx: Hyperlipidemia GI Hx: Diverticulosis and Hemorrhoids Neurological Hx: Serious Head Injury Cancer HX: No Psych. 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
[2023-02-27 08:41] LABS: Prothrombin Time Whole Bld POC 28.6 sec (11.1-13.5); ~PT, ~INR - Anti Coag Clinic 2.4 (0.9-1.1)
== END 2023-02-27 08:45 | disposition home or self-care (01) ==
LOC: HO.ACS 08:19
PROVIDERS: PCP Internal Medicine; Visit Provider Internal Medicine
DX: Z79.01 Long term (current) use of anticoagulants (principal)

== ENCOUNTER 2023-03-01 08:00 | Outpatient (RCR) | payer MEDICARE, SELFPAY ==
--- NOTE | 2023-01-05 12:51 | MHC.PT.EP ---
[facility] [place] Office [place] Office [place] Office [address] Douglas Meyer [address] [phone] F: [phone] F: [phone] F: [phone] F: [phone] Physical Therapy Plan of Care Date of Evaluation: 01/05/23 Date of Surgery: Diagnosis: VANESSA Assessment: 67 y/o female referred to pelvic floor PT for VANESSA. Pt presents with VANESSA, UUI, and constipation resulting in decreased ability to squat, walk long distances, stand for prolonged periods of time, and go swimming. She also has a hx of pelvic pain which has recently worsened over the past 6 months. Examination shows decreased lumbar AROM, decreased hip/core strength, poor breathing mechanics and increased pain. Pelvic floor assessment not performed today d/t time constraints. Educated pt re urgency deferment strategies, toileting mechanics w use of squatty potty and constipation management. Recommend PT 1x/week every other week for 6 visits Frequency and Duration: The patient will be seen 1x/week for 12 weeks Short Term Goals: 5 weeks 1. Pt to be able to correctly activate her PFM to allow improved support to bowel and bladder. 2. Pt to be able to demonstrate diaphragmatic breathing to improve pressure exchange and intra abdominal load management. 3. Pt to be able to demonstrate a pre contraction before a cough 4. Pt to be educated on behavior training to help decrease urge incontinence. Alf Goals: 12 weeks 1. Pt to be able to show improved PFM contraction during functional movements such as a bridge or squat to help prevent or limit POP. 2. Pt to reduce # of episodes of VANESSA during the day by 50% to help improve quality of life and reduce need to change underwear. 3. Pt to be independent with her final HEP for PFM in order to help maintain gains made in therapy. 4. Independent with PF contraction and concentric/eccentric control in all postures 5. Pt will be able to walk > 40 minutes with pelvic pain < 3/10 Treatment Plan: Modalities to reduce pain, spasms and effusion. Manual therapy to restore motion and function. Therapeutic exercise to improve strength and flexibility. Neuromuscular re-education for posture and balance. Therapeutic activities to return to functional activities of daily living. Electronically signed by: Please sign and return to therapist. Thank you for your referral.
--- NOTE | 2023-03-01 08:52 | MHC.PT.DC ---
[facility] [place] Office [place] Office [place] Office [address] Douglas Meyer [address] [phone] F: [phone] F: [phone] F: [phone] F: [phone] Physical Therapy Discharge Report Diagnosis: VANESSA Date of Surgery: Date of Evaluation: 01/05/23 Date of Discharge: 03/01/23 Treatments to Date: 4 Cancellations to Date: 0 No Shows to Date: 0 Discharge Status: Achieved Goals Improved Function Independent with HEP Discharge Summary: Pt reports feeling ready for d/c. Overall she notes improvement with constipation, is now using squatty potty, no longer has urinary urgency, and is able to sleep through the night without waking. However she will still have small urinary leakage 2x/week mostly with lifting babies or transitional movements in sitting. Reviewed lifting with exhaling during exertion/lift part. Also reviewed continuing with behavioral changes. Lastly reviewed exercises and importance of continuing with clamshell exercises for improved glut strength. No further questions at this time. Electronically signed by: Mallory Boss PT Please sign and return to therapist. Thank you for your referral.
== END 2023-03-01 08:53 | disposition home or self-care (01) ==
LOC: HO.PT 08:00
PROVIDERS: PCP Internal Medicine; Visit Provider Nurse Practitioner Family
DX: N39.3 Stress incontinence (female) (male) (principal)
CPT/HCPCS: 97110; 97112; 97140; 97162

== ENCOUNTER 2023-03-28 08:51 | Outpatient (AMB) | payer MEDICARE, SELFPAY ==
[2023-03-28 09:11] LABS: Prothrombin Time Whole Bld POC 19.4 sec (11.1-13.5); ~PT, ~INR - Anti Coag Clinic 1.6 (0.9-1.1)
--- NOTE | 2023-03-28 09:16 | MHC.OFFVISCO ---
Intake Intake Visit Reasons: Anticoagulation Allergies oxycodone [From PERCODAN] Allergy (Intermediate, Verified 03/28/23 09:04) HIVES rosuvastatin [From Crestor] Adverse Reaction (Intermediate, Verified 03/28/23 09:04) body aches Hydrocodone-Acetaminophen Adverse Reaction (Unknown, Uncoded 03/28/23 09:04) nausea and vomiting Medication List - Last Reconciled 03/28/23 by Ayaka Nguyen RN albuterol sulfate 90 mcg/actuation 2 inhalations inhalation Q6-8H PRN alirocumab 150 mg subcut Q2W amoxicillin 2,000 mg (4 x 500 mg) PO .before dental visit PRN ascorbic acid (vitamin C) 1,000 mg PO DAILY cholecalciferol (vitamin D3) (Vitamin D3) 50 mcg PO DAILY docusate sodium 100 mg PO BEDTIME fluoxetine 20 mg PO QAM hydroxyzine HCl 12.5 - 25 mg PO DAILY PRN lamotrigine 250 mg PO BEDTIME latanoprost 0.005% 1 drp ophthalmic (eye) BEDTIME magnesium oxide 400 mg PO DAILY metoprolol tartrate 50 mg PO BID 90 days [id number] (Multivitamin 50 Plus tablet) 1 tab PO DAILY polyethylene glycol 3350 (Miralax) 17 grams PO DAILY trazodone 100 - 200 mg PO BEDTIME PRN warfarin See Protocol Take 2-3 tabs daily based on INR results Nursing Note Amb to ACS feeling well Medications and supplements reviewed No changes in health, diet, medications, or supplements Denies any unusual signs and symptoms of bruising, bleeding Denies any new Chest pain, SOB, or clotting INR: 1.6 below therapeutic range, pt then sts she missed a dose on last , then tried to make up the 5mg by taking 2.5 extra on Monday and Monday, however she sts she did have brocolli 3 x during that time Nutritional guidance given: red to help raise then balance greens and reds in diet Dose: increase dose today to 7.5mg then resume usual dosing; 7.5mg x 3 days and 5mg x 4 days F/U INR: 1 week, if ok can go out the month, instructed to try not to have dark leafy greens when she knows she missed a dose Patient verbalizes understanding of instructions given with accurate read back/ teach back of dosing Anti-Coag Initial Assessment Social Hx Patient Tobacco Use Status: Never used Tobacco alcohol intake: current Alcohol intake frequency: a few times a month Cardiovascular Hx: Arrhythmias (afib) and Varicose Veins Lung Disease HX: Asthma Musculoskeletal Hx: Arthritis Blood Disorder Hx: Hyperlipidemia GI Hx: Diverticulosis and Hemorrhoids Neurological Hx: Serious Head Injury Cancer HX: No Psych. 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
== END 2023-03-28 09:41 | disposition home or self-care (01) ==
LOC: HO.ACS 08:51
PROVIDERS: PCP Internal Medicine; Visit Provider Internal Medicine
DX: Z79.01 Long term (current) use of anticoagulants (principal)

== ENCOUNTER → 2023-03-28 08:51 | Outpatient (BNVA) | payer MEDICARE, SELFPAY | PROVIDERS: PCP Internal Medicine; Visit Provider Internal Medicine | DX: I48.91 Unspecified atrial fibrillation (principal); Z79.01 Long term (current) use of anticoagulants; Z51.81 Encounter for therapeutic drug level monitoring | CPT/HCPCS: 85610; 99211 ==

== ENCOUNTER 2023-04-03 15:30 | Emergency (ER) | payer MEDICARE, SELFPAY ==
--- NOTE | ~2023-04-03 | XR_ITS ---
EXAMINATION: XR FINGER, RIGHT CLINICAL INFORMATION: History of trauma. COMPARISON: None available. TECHNIQUE: Two views of the right ring finger. PA view of the right hand. FINDINGS: Alignment is anatomic. Joint spaces are maintained. No displaced fracture or dislocation. XR/XR finger RT min 2V IMPRESSION: No acute abnormality.
[2023-04-03 16:16] VITALS: BP 147/77; PULSE 62; RESP 20; TEMP 37.1; O2SAT 96; BMI 27.4
--- NOTE | 2023-04-03 16:20 | ED_ITS ---
HPI - General Adult General Chief complaint: Extremity Problem Stated complaint: Burst blood vessel (?) in hand Time Seen by Provider: 04/03/23 18:01 Source: patient Mode of arrival: ambulatory Limitations: no limitations History of Present Illness HPI narrative: Patient Is a 67-year-old female who presents emergency department for evaluation of pain and bruising to right ring finger. She states that she was picking up a shopping bag it was filled with needed hats. States it was no heavier than a typical grocery bag. Soon after she noticed that she had bruising to the palmar aspect of the finger. She expressed concern that her INR may be potentially high resulting in significant bruising. She reports pain with movement particularly flexion of the digit. Denies numbness tingling or other precipitating injury. Related Data Home Medications Medication Instructions Recorded Confirmed lamotrigine 100 mg tablet 250 mg PO BEDTIME 10/01/20 03/28/23 latanoprost 0.005 % eye drops 1 drp ophthalmic (eye) BEDTIME 10/01/20 03/28/23 trazodone 100 mg tablet 100 - 200 mg PO BEDTIME PRN Sleep 10/01/20 03/28/23 hydroxyzine HCl 25 mg tablet 12.5 - 25 mg PO DAILY PRN Anxiety 12/16/20 03/28/23 fluoxetine 20 mg capsule 20 mg PO QAM 12/01/21 03/28/23 ascorbic acid (vitamin C) 500 mg 1,000 mg PO DAILY 06/02/22 03/28/23 capsule cholecalciferol (vitamin D3) 50 50 mcg PO DAILY 06/08/22 03/28/23 mcg (2,000 unit) capsule (Vitamin D3) bhikqdwdigzs-sjxbwvxz-pyvnrv 1 tab PO DAILY 06/08/22 03/28/23 tablet (Multivitamin 50 Plus tablet) magnesium oxide 400 mg PO DAILY 12/27/22 03/28/23 Previous Rx's Medication Instructions Recorded docusate sodium 100 mg capsule 100 mg PO BEDTIME #90 caps 12/20/21 polyethylene glycol 3350 17 17 g PO DAILY #510 grams 12/20/21 gram/dose oral powder (Miralax) warfarin 2.5 mg tablet See Rx Instructions PO DAILY #250 06/29/22 tabs amoxicillin 500 mg capsule 2,000 mg (4 x 500 mg) PO .before 08/09/22 dental visit PRN before dental procedure #4 caps albuterol sulfate 90 mcg/actuation 2 inh inhalation Q6-8H PRN 09/13/22 aerosol inhaler shortness of breath or wheezing #8.5 grams metoprolol tartrate 50 mg tablet 50 mg PO BID 90 days #180 tabs 01/30/23 alirocumab 150 mg/mL subcutaneous 150 mg subcut Q2W #2 mL 02/10/23 pen injector Allergies Allergy/AdvReac Type Severity Reaction Status Date / Time oxycodone [From PERCODAN] Allergy Intermediate HIVES Verified 04/03/23 16:21 rosuvastatin [From Crestor] AdvReac Intermediate body aches Verified 04/03/23 16:21 Hydrocodone-Acetaminophen AdvReac Unknown nausea and Uncoded 03/28/23 09:04 vomiting Review of Systems Review of Systems: Yes all other systems are reviewed and are negative PMFSH Past Medical History Attestation statement: The following information was validated with the patient. Source: old records reviewed Onset Date is defined in the Problem List Problems that require an onset date and time if occurred within 24 hrs of arrival to the ED Aortic Dissection and Rupture; Neurologic impairment; Cardiopulmonary Arrest; Endotracheal Intubation; Insertion or Replacement of Mechanical Circulatory Assist Device Medical History Hypertension Asthma Depression Anxiety Chronic low back pain On anticoagulant therapy On beta francisco at home PAF (paroxysmal atrial fibrillation) Surgical History H/O colonoscopy History of evacuation of hematoma History of bowel resection History of knee surgery Family History Family History Father Myocardial infarction CVD (cardiovascular disease) Mother Mental health disorder Sister Mental health disorder Social History Social History Household Members: Spouse and Family 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:: , 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, 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, 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 healthcare 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 No acute distress.?Normal affect. Neck: Normal inspection.? Neck supple.?? CVS: Heart sounds normal. Normal heart rate and rhythm.? Pulses normal.?? Respiratory: No respiratory distress.? Lung sounds clear to auscultation bilaterally?? Skin: Skin warm and dry.? Normal skin color.? Extremities: No extremity edema.? Ecchymosis over the palmar aspect of the right 4th digit. Extremity neurovascularly intact distally. Near full flexion to the digit, full extension. Neuro: Moves all extremities spontaneously. Sensation intact bilaterally. Ambulates with normal steady gait. Course Course Course Narrative: RME performed by Sowmya Polk PA-C. Patient is a 67 year old assigned female at presenting to the emergency department with right finger pain. Detailed physical exam and review of systems are deferred to the floral department specialist. Labs and imaging ordered. Patient placed back in the waiting room pending room availability and results. Medical Decision Making Medical Decision Making MDM Narrative: patient is a 67-year-old female who presents emergency department for evaluation of right 4th digit injury as per HPI. On physical examination has ecchymosis over the palmar aspect, did is soft, near full flexion, able to hold the finger in full extension. Compartment soft. Pain has improved since initial onset per her report. XR reveals no osseous abnormality. Symptoms at this time most consistent with contusion, advised rest, ice, acetaminophen for pain management. Outpatient follow-up with primary care provider as needed. Discussed worrisome signs and symptoms that would warrant re-evaluation in the emergency department. All questions answered. Stable for discharge. Differential Diagnosis Differential Diagnoses: The differential diagnosis associated with the presentation includes ( fracture, ligamentous injury, contusion) Lab Data MDM Lab Attestation statement: I reviewed the patient's lab results. INR 2.3 within therapeutic range. Labs: Lab Results 04/03/23 Range/Units 16:34 PT 27.4 H D (11.1-13.3) SEC INR 2.3 H (0.9-1.1) APTT 51.4 H (26.0-36.4) SEC Independent Interpretation I performed an independent interpretation of an: Plain X-Ray ( I personally interpreted XR and agree with radiologist impression.) Radiology Impression Discussion of test interpretation with radiology: I have reviewed the rad iologist's reading. Radiologist Impression: XR/XR finger RT min 2V IMPRESSION: No acute abnormality. Prescription Management I considered prescription management with: Pain Medication ( Acetaminophen) Chronic Conditions Patient?s care impacted by: Other ( long-term anticoagulation) Discharge Plan Discharge Clinical Impression: Contusion of finger of right hand Patient Disposition: Home, Self-Care Instructions: Contusion in Adults (ED) Additional Instructions: You can take Tylenol 500 mg, 2 tablets (1,000mg) every 4-6 hours as needed for pain, but not to exceed 3 doses daily (3,000mg).? apply ice for 10-15 minutes 3-4 times daily. Darwin tape the finger to the middle finger as instructed follow-up with your primary care provider as needed. Prescriptions: No Action warfarin 2.5 mg tablet See Rx Instructions PO DAILY Qty: 250 3RF Protocol: Dose Management Condition: Monday (Week One) Dose/Route: 7.5 mg Instruction: 3 x 2.5 mg tablets Condition: Monday Dose/Route: 7.5 mg Instruction: 3 x 2.5 mg tablets Condition: Monday Dose/Route: 7.5 mg Instruction: 3 x 2.5 mg tablets Condition: Monday Dose/Route: 7.5 mg Instruction: 3 x 2.5 mg tablets Condition: Dose/Route: 5 mg Instruction: 2 x 2.5 mg tablets Condition: Monday Dose/Route: 7.5 mg Instruction: 3 x 2.5 mg tablets Condition: Monday Dose/Route: 5 mg Instruction: 2 x 2.5 mg tablets Condition: Monday (Week Two) Dose/Route: 5 mg Instruction: 2 x 2.5 mg tablets Condition: Monday Dose/Route: 7.5 mg Instruction: 3 x 2.5 mg tablets Condition: Monday Dose/Route: 5 mg Instruction: 2 x 2.5 mg tablets Condition: Monday Dose/Route: 7.5 mg Instruction: 3 x 2.5 mg tablets Condition: Dose/Route: 5 mg Instruction: 2 x 2.5 mg tablets Condition: Monday Dose/Route: 7.5 mg Instruction: 3 x 2.5 mg tablets Condition: Monday Dose/Route: 5 mg Instruction: 2 x 2.5 mg tablets Protocol Text: Adjustment Start Date: Monday03/28/23 INR Value: 1.6 INR Date: 03/28/23 Recheck Date: 04/04/23 Additional Instructions: INR is below range missed dose last with attempt to make up dosing increase dose today to 7.5mg, a little red to raise then balance Rx Instructions: Take 2-3 tabs daily based on INR results albuterol sulfate 90 mcg/actuation HFA aerosol inhaler 2 inh inhalation Q6-8H PRN (Reason: shortness of breath or wheezing) Qty: 8.5 2RF magnesium oxide 400 mg magnesium capsule 400 mg PO DAILY Praluent Pen 150 mg/mL pen injector 150 mg subcut Q2W Qty: 2 5RF Patient Comments: monday every two weeks Rx Instructions: inject into abdomen, thigh, or upper arm (deltoid muscle); rotate sites cholecalciferol (vitamin D3) [Vitamin D3] 50 mcg (2,000 unit) Capsule 50 mcg PO DAILY Multivitamin 50 Plus Tablet 1 tab PO DAILY fluoxetine 20 mg capsule 20 mg PO QAM amoxicillin 500 mg capsule 2,000 mg PO .before dental visit PRN (Reason: before dental procedure) Qty: 4 2RF lamotrigine 100 mg tablet 250 mg PO BEDTIME latanoprost 0.005 % drops 1 drp ophthalmic (eye) BEDTIME trazodone 100 mg tablet 100 - 200 mg PO BEDTIME PRN (Reason: Sleep) hydroxyzine HCl 25 mg tablet 12.5 - 25 mg PO DAILY PRN (Reason: Anxiety) polyethylene glycol 3350 [Miralax] 17 gram/dose powder 17 g PO DAILY Qty: 510 2RF docusate sodium 100 mg capsule 100 mg PO BEDTIME Qty: 90 3RF ascorbic acid (vitamin C) 500 mg capsule 1,000 mg PO DAILY metoprolol tartrate 50 mg tablet 50 mg PO BID 90 Days Qty: 180 3RF
[2023-04-03 16:46] LABS: INTERNATIONAL NORM RATIO 2.3 (0.9-1.1); Prothrombin Time 27.4 SEC (11.1-13.3)
[2023-04-03 16:49] LABS: Partial Thromboplastin Time 51.4 SEC (26.0-36.4)
== END 2023-04-03 18:49 | disposition home or self-care (01) ==
PROVIDERS: Physician Assistant Medical; Emergency Provider Internal Medicine; PCP Internal Medicine
DX: S60.041A Contusion of right ring finger without damage to nail, initial encounter (principal); X58.XXXA Exposure to other specified factors, initial encounter; Y93.9 Activity, unspecified; Y92.9 Unspecified place or not applicable; Y99.9 Unspecified external cause status; Z79.899 Other long term (current) drug therapy
CPT/HCPCS: 36415; 73140; 85610; 85730; 99282; 99283

== ENCOUNTER 2023-04-04 08:20 | Outpatient (AMB) | payer MEDICARE, SELFPAY ==
[2023-04-04 08:31] LABS: Prothrombin Time Whole Bld POC 31.7 sec (11.1-13.5); ~PT, ~INR - Anti Coag Clinic 2.6 (0.9-1.1)
--- NOTE | 2023-04-04 08:41 | MHC.OFFVISCO ---
Intake Intake Visit Reasons: Anticoagulation Allergies oxycodone [From PERCODAN] Allergy (Intermediate, Verified 04/04/23 08:24) HIVES rosuvastatin [From Crestor] Adverse Reaction (Intermediate, Verified 04/04/23 08:24) body aches Hydrocodone-Acetaminophen Adverse Reaction (Unknown, Uncoded 04/04/23 08:24) nausea and vomiting Medication List - Last Reconciled 04/04/23 by Gregoria Dorado RN albuterol sulfate 90 mcg/actuation 2 inhalations inhalation Q6-8H PRN alirocumab 150 mg subcut Q2W amoxicillin 2,000 mg (4 x 500 mg) PO .before dental visit PRN ascorbic acid (vitamin C) 1,000 mg PO DAILY cholecalciferol (vitamin D3) (Vitamin D3) 50 mcg PO DAILY docusate sodium 100 mg PO BEDTIME fluoxetine 20 mg PO QAM hydroxyzine HCl 12.5 - 25 mg PO DAILY PRN lamotrigine 250 mg PO BEDTIME latanoprost 0.005% 1 drp ophthalmic (eye) BEDTIME magnesium oxide 400 mg PO DAILY metoprolol tartrate 50 mg PO BID 90 days xalgxarytvnr-wgwqztuo-fhjjzv (Multivitamin 50 Plus tablet) 1 tab PO DAILY polyethylene glycol 3350 (Miralax) 17 grams PO DAILY trazodone 100 - 200 mg PO BEDTIME PRN warfarin See Protocol Take 2-3 tabs daily based on INR results Nursing Note INR: 2.6 in therapeutic range Medications and supplements reviewed She had a hematoma develop in her left hand middle finger after carrying a plastic bag, it became swollen and black and blue and went to the ER - found to be a small broken blood vessell in her finger that was injured from the weight of the bag Denies any signs and symptoms of bleeding or bruising or clotting. Bleeding, bruising, clotting discussed Nutritional guidance given - eat a mix of fruits and vegetables Dose: keep same 7.5mg mwf/ 5mg x 4 days F/U INR: 4 weeks 'Patient verbalizes understanding of instructions given Anti-Coag Initial Assessment Social Hx Patient Tobacco Use Status: Never used Tobacco alcohol intake: current Alcohol intake frequency: a few times a month Cardiovascular Hx: Arrhythmias (afib) and Varicose Veins Lung Disease HX: Asthma Musculoskeletal Hx: Arthritis Blood Disorder Hx: Hyperlipidemia GI Hx: Diverticulosis and Hemorrhoids Neurological Hx: Serious Head Injury Cancer HX: No Psych. Illness/Depression: Yes Coding Level of Care Code Est Patient Level 1 Diagnoses Current use of anticoagulant therapy Z79.01 Assessment & Plan Assessment & Plan (1) Current use of anticoagulant therapy: Code(s): Z79.01 - care home (current) use of anticoagulants Category: Medical
== END 2023-04-04 08:54 | disposition home or self-care (01) ==
LOC: HO.ACS 08:20
PROVIDERS: PCP Internal Medicine; Visit Provider Internal Medicine
DX: Z79.01 Long term (current) use of anticoagulants (principal)

== ENCOUNTER → 2023-04-04 08:20 | Outpatient (BNVA) | payer MEDICARE, SELFPAY | PROVIDERS: PCP Internal Medicine; Visit Provider Internal Medicine | DX: I48.91 Unspecified atrial fibrillation (principal); Z79.01 Long term (current) use of anticoagulants; Z51.81 Encounter for therapeutic drug level monitoring | CPT/HCPCS: 85610; 99211 ==

== ENCOUNTER 2023-04-28 10:30 | Outpatient (AMB) | payer MEDICARE, SELFPAY ==
--- NOTE | 2023-04-28 10:51 | MHC.OFFVISCO ---
Intake Intake Visit Reasons: Anticoagulation Allergies oxycodone [From PERCODAN] Allergy (Intermediate, Verified 04/28/23 10:46) HIVES rosuvastatin [From Crestor] Adverse Reaction (Intermediate, Verified 04/28/23 10:46) body aches Hydrocodone-Acetaminophen Adverse Reaction (Unknown, Uncoded 04/28/23 10:46) nausea and vomiting Medication List - Last Reconciled 04/28/23 by Komal Thomas RN albuterol sulfate 90 mcg/actuation 2 inhalations inhalation Q6-8H PRN alirocumab 150 mg subcut Q2W amoxicillin 2,000 mg (4 x 500 mg) PO .before dental visit PRN ascorbic acid (vitamin C) 1,000 mg PO DAILY cholecalciferol (vitamin D3) (Vitamin D3) 50 mcg PO DAILY docusate sodium 100 mg PO BEDTIME fluoxetine 20 mg PO QAM hydroxyzine HCl 12.5 - 25 mg PO DAILY PRN lamotrigine 250 mg PO BEDTIME latanoprost 0.005% 1 drp ophthalmic (eye) BEDTIME magnesium oxide 400 mg PO DAILY metoprolol tartrate 50 mg PO BID 90 days [id number]-etpqxxry-fxwinu (Multivitamin 50 Plus tablet) 1 tab PO DAILY polyethylene glycol 3350 (Miralax) 17 grams PO DAILY trazodone 100 - 200 mg PO BEDTIME PRN warfarin See Protocol Take 2-3 tabs daily based on INR results Nursing Note INR: 2.4- in therapeutic range of 2-3 Medications and supplements reviewed No changes in health, diet, medications, or supplements, Denies any signs and symptoms of bleeding or bruising or clotting. Bleeding, bruising, clotting discussed Nutritional guidance given Dose: 5mg x 4, 7.5mg x 3 F/U INR: 2 weeks Patient verbalizes understanding of instructions given Anti-Coag Initial Assessment Social Hx Patient Tobacco Use Status: Never used Tobacco alcohol intake: current Alcohol intake frequency: a few times a month Cardiovascular Hx: Arrhythmias (afib) and Varicose Veins Lung Disease HX: Asthma Musculoskeletal Hx: Arthritis Blood Disorder Hx: Hyperlipidemia GI Hx: Diverticulosis and Hemorrhoids Neurological Hx: Serious Head Injury Cancer HX: No Psych. Illness/Depression: Yes Coding Level of Care Code Est Patient Level 1 Diagnoses Current use of anticoagulant therapy Z79.01 Results AMB INR Fingerstick AMB INR Fingerstick 2.4 Last Edit by Komal Thomas RN on 04/28/23 10:52 Assessment & Plan Assessment & Plan (1) Current use of anticoagulant therapy: Code(s): Z79.01 - skilled nursing (current) use of anticoagulants Category: Medical Medications: Discontinued nirmatrelvir-ritonavir 300 mg (150 mg x 2)-100 mg (Paxlovid) Discontinued Reason: Patient Completed Course take TWO 150 mg tablets of nirmatrelvir with ONE 100 mg tablet of ritonavir twice daily for 5 days PO; HOLD Trazodone WHILE TAKING Paxlovid 30 ea 0RF
[2023-04-28 10:53] LABS: Prothrombin Time Whole Bld POC 29.2 sec (11.1-13.5); ~PT, ~INR - Anti Coag Clinic 2.4 (0.9-1.1)
== END 2023-04-28 10:56 | disposition home or self-care (01) ==
LOC: HO.ACS 10:30
PROVIDERS: PCP Internal Medicine; Visit Provider Internal Medicine
DX: Z79.01 Long term (current) use of anticoagulants (principal)

== ENCOUNTER → 2023-04-28 10:30 | Outpatient (BNVA) | payer MEDICARE, SELFPAY | PROVIDERS: PCP Internal Medicine; Visit Provider Internal Medicine | DX: I48.91 Unspecified atrial fibrillation (principal) | CPT/HCPCS: 85610; 99211 ==

== ENCOUNTER 2023-05-12 09:20 | Outpatient (AMB) | payer MEDICARE, SELFPAY ==
[2023-05-12 09:28] LABS: Prothrombin Time Whole Bld POC 26.4 sec (11.1-13.5); ~PT, ~INR - Anti Coag Clinic 2.2 (0.9-1.1)
--- NOTE | 2023-05-12 09:30 | MHC.OFFVISCO ---
Intake Intake Visit Reasons: Anticoagulation Allergies oxycodone [From PERCODAN] Allergy (Intermediate, Verified 04/28/23 10:46) HIVES rosuvastatin [From Crestor] Adverse Reaction (Intermediate, Verified 04/28/23 10:46) body aches Hydrocodone-Acetaminophen Adverse Reaction (Unknown, Uncoded 04/28/23 10:46) nausea and vomiting Nursing Note INR: 2.4 in therapeutic range Medications and supplements reviewed No changes in health, diet, medications, or supplements, Denies any signs and symptoms of bleeding or bruising or clotting. Bleeding, bruising, clotting discussed Nutritional guidance given REVIEW FOOD LIST WEEKLY - LESS GREENS THIS WEEK POST COVID AND PAXLOVID Dose: 7.5MG X 3 DAYS 5MG X 4 DAYS F/U INR: 4 WEEKS Patient verbalizes understanding of instructions given Anti-Coag Initial Assessment Social Hx Patient Tobacco Use Status: Never used Tobacco alcohol intake: current Alcohol intake frequency: a few times a month Cardiovascular Hx: Arrhythmias (afib) and Varicose Veins Lung Disease HX: Asthma Musculoskeletal Hx: Arthritis Blood Disorder Hx: Hyperlipidemia GI Hx: Diverticulosis and Hemorrhoids Neurological Hx: Serious Head Injury Cancer HX: No Psych. Illness/Depression: Yes Coding Level of Care Code Est Patient Level 1 Diagnoses Current use of anticoagulant therapy Z79.01 Assessment & Plan Assessment & Plan (1) Current use of anticoagulant therapy: Code(s): Z79.01 - supervisor fiber locking (current) use of anticoagulants Category: Medical
== END 2023-05-12 09:35 | disposition home or self-care (01) ==
LOC: HO.ACS 09:20
PROVIDERS: PCP Internal Medicine; Visit Provider Internal Medicine
DX: Z79.01 Long term (current) use of anticoagulants (principal)

== ENCOUNTER → 2023-05-12 09:20 | Outpatient (BNVA) | payer MEDICARE, SELFPAY | PROVIDERS: PCP Internal Medicine; Visit Provider Internal Medicine | DX: I48.91 Unspecified atrial fibrillation (principal); Z79.01 Long term (current) use of anticoagulants; Z51.81 Encounter for therapeutic drug level monitoring | CPT/HCPCS: 85610; 99211 ==

== ENCOUNTER 2023-05-17 10:53 | Outpatient (AMB) | payer MEDICARE, SELFPAY ==
[2023-05-17 10:58] VITALS: BP 132/80; PULSE 58; O2SAT 95; BMI 30.4
--- NOTE | 2023-05-17 10:58 | A.OFFPC_ITS ---
Vital Signs 05/17/23 10:58 Height 5 ft 8 in Weight 200 lb BMI 30.4 BP 132/80 Blood Pressure Location Lt brachial Position Sitting Pulse 58 Pulse Source Pulse Oximeter Pulse Oximetry (%) 95 Oxygen Delivery Method Room Air Intake Visit Reasons: 3 month fu Intake Note: Pt is here today for 3 months follow up visit. Allergies oxycodone [From PERCODAN] Allergy (Intermediate, Verified 05/17/23 10:58) HIVES rosuvastatin [From Crestor] Adverse Reaction (Intermediate, Verified 05/17/23 10:58) body aches Hydrocodone-Acetaminophen Adverse Reaction (Unknown, Uncoded 05/17/23 10:58) nausea and vomiting Medication List - Last Reconciled 05/17/23 by Bonny Bueno MD albuterol sulfate 90 mcg/actuation 2 inhalations inhalation Q6-8H PRN alirocumab 150 mg subcut Q2W amoxicillin 2,000 mg (4 x 500 mg) PO .before dental visit PRN ascorbic acid (vitamin C) 1,000 mg PO DAILY cholecalciferol (vitamin D3) (Vitamin D3) 50 mcg PO DAILY docusate sodium 100 mg PO BEDTIME fluoxetine 20 mg PO QAM hydroxyzine HCl 12.5 - 25 mg PO DAILY PRN lamotrigine 250 mg PO BEDTIME latanoprost 0.005% 1 drp ophthalmic (eye) BEDTIME magnesium oxide 400 mg PO DAILY metoprolol tartrate 50 mg PO BID 90 days vfesnqutregm-fpythbwf-uwpcak (Multivitamin 50 Plus tablet) 1 tab PO DAILY polyethylene glycol 3350 (Miralax) 17 grams PO DAILY trazodone 100 - 200 mg PO BEDTIME PRN warfarin See Protocol Take 2-3 tabs daily based on INR results Tobacco use date assessed: 05/17/23 Fall risk assessment: No Falls in past year Last assessed Fall Risk: 05/17/23 Dental Screening Dental Screen Date: 05/17/23 Did you have a dental visit in the last 12 months?: Yes Did you have a dental problem in the last 6 months where you did not have access to dental care?: No Was dental information given to patient?: Patient has dentist HPI 3 month fu HPI Details Pt presents for f/u A fib. Last episode yesterday and went to [facility] ER, converted spontaneously. Patient denies recurrent palpitations chest pain shortness for breath. She will call discussion appointment with her lip reading teacher. Patient has been taking Coumadin and metoprolol. Chronic anxiety and depression are stable on current medications. 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 Are you a primary prompt care rn to a significant other at home: Yes Do you presently have visiting nurse or other home services: No Alcohol intake: current Alcohol intake frequency: a few times a month Patient Tobacco Use Status: Never used Tobacco e-Cigarette/Vaping Use: Never Used service: No Current occupational status: retired 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 1. Little interest or pleasure in doing things: not at all 2. Feeling down, depressed, or hopeless: not at all 3. Trouble falling or staying asleep, or sleeping too much: not at all 4. Feeling tired or having little energy: not at all 5. Poor appetite or overeating: not at all 6. Feeling bad about yourself - or that you are a failure or have let yourself or your family down: not at all 7. Trouble concentrating on things, such as reading the newspaper or watching television: not at all 8. Moving or speaking so slowly that other people could have noticed. Or the opposite - being so fidgety or restless that you have been moving around a lot more than usual: not at all 9. Thoughts that you would be better off or of hurting yourself in some way: not at all Total score: 0 Depression Screening Interpretation: Negative Depression Screening Done: Yes Source: Developed by Drs. Trip Miller, Susan Hewitt, Raman Gibson and colleagues, with an educational celio from [employer]. Thrive Questionnaire Date Thrive assessed: 05/17/23 I am a: Patient What is your living situation today?: I have a steady place to live Within the past 12 months, did the food you bought not last and you didn't have the money to get more?: Never true Within the past 12 months, did you worry whether your food would run out before you got money to buy more?: Never true Do you have trouble paying for medicines?: No Do you have trouble getting transportation to medical appointments?: No Do you have trouble paying your heating and electricity bill?: No Do you have trouble taking care of your child, family member or friend?: No Do you have trouble with day-to-day activities such as bathing, preparing meals, shopping, managing finances, etc.?: No Are you currently unemployed and looking for a job?: No Are you interested in more education?: No Please select the resources that you would like help with: None Currently or been in a relationship where the following occur: no concerns reported THRIVE Score: 0 AUDIT C Alcohol Use Questionnaire (AUDIT-C) 1. How often do you have a drink containing alcohol?: Monthly or less 2. How many drinks containing alcohol do you have on a typical day when you are drinking?: 1 or 2 3. How often do you have six or more drinks on one occasion?: Never Total Score: 1 MERLIN-7 AMB Questionnaire MERLIN-7 Date MERLIN - 7 assessed: 05/17/23 Feeling nervous, anxious, or on edge: 0 = Not at all Not being able to stop or control worryin = Not at all Worrying too much about different things: 0 = Not at all Trouble relaxin = Not at all Being so restless that it is hard to sit still: 0 = Not at all Becoming easily annoyed or irritable: 0 = Not at all Feeling afraid as if something awful might happen: 0 = Not at all Total MERLIN-7 score (0-4 normal; 5-9 mild; 10-14 moderate; 15-21 severe): 0 Source: Developed by Drs. Trip Miller, Susan Hewitt, Raman Gibson and colleagues, with an educational celio from [employer]. Review of Systems Const All systems reviewed & are unremarkable except as noted in HPI and below Reports no additional complaints Eyes Reports no additional complaints ENT Reports no additional complaints Card Reports no additional complaints Resp Reports no additional complaints GI Reports no additional complaints Reports no additional complaints Physical exam (Primary Care) Vital Signs: Last Vital Signs Pulse 58 05/17/23 10:58 BP 132/80 05/17/23 10:58 Pulse Ox 95 05/17/23 10:58 Oxygen Delivery Method Room Air 05/17/23 10:58 BMI result Body Mass Index 30.4 Tobacco/Smoking Status: Tobacco use Status Tobacco use date assessed 05/17/23 05/17/23 10:59 Patient Tobacco Use Status Never used Tobacco 05/17/23 10:59 e-Cigarette/Vaping Use Never Used 05/17/23 10:59 PHQ-9: PHQ-9 Score PHQ-9: Total score 0 05/17/23 11:15 Depression Screening Interpretation: Negative Thrive Assessment: Date of Thrive Assessment Date Thrive assessed 05/17/23 05/17/23 11:15 Currently or been in a relationship where the following occur: no concerns reported Const General: no acute distress HENMT Head: Yes normal to inspection Ears: hearing grossly normal bilaterally Resp Effort & Inspection: normal respiratory effort Auscultation: clear to auscultation bilaterally Cardio Rhythm: regular rhythm Heart sounds: S1 normal heart sound present and S2 normal heart sound present GI Inspection: Yes normal to inspection Palpation (GI): Soft to palpation Percussion: Yes normal to percussion Auscultation: normal bowel sounds Assessment and Plan Assessment & Plan (1) Hyperlipidemia: Comment: Atorvastatin was stopped by Cardiology, intolerant to Crestor(myalgia), on Praluent since 08/16 Code(s): E78.5 - Hyperlipidemia, unspecified Plan: Continue Praluent and check lipid profile (2) Vitamin D deficiency: Code(s): E55.9 - Vitamin D deficiency, unspecified Plan: Continue vitamin-D (3) Vitamin B 12 deficiency: Code(s): E53.8 - Deficiency of other specified B group vitamins (4) PAF (paroxysmal atrial fibrillation): Code(s): I48.0 - Paroxysmal atrial fibrillation Plan: Continue metoprolol and Coumadin. Patient will follow-up with the Cardiology (5) Anxiety and depression: Comment: f/u with psychiatrist, 2 suicidal attempts 2013, Code(s): F41.9 - Anxiety disorder, unspecified; F32.A - Depression, unspecified Plan: Stable on current medications, follow-up with psychiatrist and therapist Orders: Orders Complete Blood Count Auto Diff Today E53.8 - Deficiency of other specified B group vitamins, E55.9 - Vitamin D deficiency, unspecified, E78.5 - Hyperlipidemia, unspecified, I48.0 - Paroxysmal atrial fibrillation Lipid Panel Today E53.8 - Deficiency of other specified B group vitamins, E55.9 - Vitamin D deficiency, unspecified, E78.5 - Hyperlipidemia, unspecified, I48.0 - Paroxysmal atrial fibrillation Comprehensive Met. Panel Today E53.8 - Deficiency of other specified B group vitamins, E55.9 - Vitamin D deficiency, unspecified, E78.5 - Hyperlipidemia, unspecified, I48.0 - Paroxysmal atrial fibrillation TSH reflex Free T4 Today E53.8 - Deficiency of other specified B group vitamins, E55.9 - Vitamin D deficiency, unspecified, E78.5 - Hyperlipidemia, unspecified, I48.0 - Paroxysmal atrial fibrillation Referrals Gastroenterology Referral Z00.00 - Encounter for general adult medical examination without abnormal findings Coding Level of Care Code Est Pt Level 4 (07495) Diagnoses Hyperlipidemia E78.5 Vitamin D deficiency E55.9 Vitamin B 12 deficiency E53.8 PAF (paroxysmal atrial fibrillation) I48.0 Anxiety and depression F41.9; F32.A
== END 2023-05-17 13:06 | disposition home or self-care (01) ==
PROVIDERS: PCP Internal Medicine; Visit Provider Internal Medicine
DX: E78.5 Hyperlipidemia, unspecified (principal); E55.9 Vitamin D deficiency, unspecified; E53.8 Deficiency of other specified B group vitamins; I48.0 Paroxysmal atrial fibrillation; F41.9 Anxiety disorder, unspecified; F32.A Depression, unspecified
CPT/HCPCS: 99214

== ENCOUNTER 2023-05-18 09:31 | Outpatient (REF) | payer MEDICARE, SELFPAY ==
[2023-05-18 11:18] LABS: MANUAL DIFF FLAG NO
[2023-05-18 11:32] LABS: Basophils Percent Auto 0.6 % (0-2); Eosinophils Absolute Auto 0.3 X10*3/uL (0.0-0.4); Eosinophils Percent Auto 6.5 % (0-4); Hematocrit 42.1 % (37.0-47.0); Hemoglobin 13.8 g/dl (12.0-16.0); Imm Gran Abs Auto 0.01 X10*3/uL (0.00-0.03); Imm Gran Pct Auto 0.2 % (0.0-0.4); Lymphocytes Absolute Auto 1.3 X10*3/uL (1.2-4.9); Lymphocytes Percent Auto 27.2 % (20-40); Mean Corpuscular HGB Conc 32.8 g/dl (31.0-35.0); Mean Corpuscular Hemoglobin 30.7 pg (27.0-33.0); Mean Corpuscular Volume 93.8 fL (80.0-98.0); Mean Platelet Volume 10.5 fL (9.4-12.3); Monocytes Absolute Auto 0.4 X10*3/uL (0.1-1.2); Monocytes Percent Auto 8.4 % (2-11); Neutrophils Absolute Auto 2.7 x10*3/uL (2.0-8.3); Neutrophils Percent Auto 57.1 % (45-73); Platelet Count 171 X10*3/uL (160-400); Red Blood Count 4.49 X10*6/uL (4.20-5.50); Red Cell Distribution Width 12.8 % (11.0-16.0); White Blood Count 4.6 X10*3/uL (4.8-10.8)
[2023-05-18 12:18] LABS: Alanine Aminotransferase 23 U/L (0-31); Albumin Level 4.1 g/dL (3.5-5.0); Alkaline Phosphatase 77 U/L (39-117); Anion Gap 12 (12-20); Aspartate Amino Transferase 21 U/L (5-31); Bilirubin Total 0.4 mg/dL (0.0-1.0); Blood Urea Nitrogen 12 mg/dL (9-16); Calcium 9.6 mg/dL (8.4-10.2); Carbon Dioxide 31 mmol/L (22-29); Chloride 103 mmol/L (96-108); Cholesterol 217 mg/dL (<200); Estimated Glomerular Filt Rate > 60; Glucose Random 87 mg/dL (60-115); HDL Cholesterol 57 mg/dL (>40); LDL Cholesterol Calculated 133 mg/dL (<100); Potassium 4.1 mmol/L (3.3-5.1); Sodium 142 mmol/L (135-145); Total Protein 7.2 g/dL (6.5-8.0); Triglycerides 135 mg/dL (<150)
[2023-05-18 12:35] LABS: TSH reflex Free T4 1.82 uIU/mL (0.32-4.0)
== END 2023-05-18 09:32 | disposition home or self-care (01) ==
LOC: HO.HMGCLDS 09:31
PROVIDERS: PCP Internal Medicine; Visit Provider Internal Medicine
DX: E78.5 Hyperlipidemia, unspecified (principal); E55.9 Vitamin D deficiency, unspecified; E53.8 Deficiency of other specified B group vitamins; I48.0 Paroxysmal atrial fibrillation
CPT/HCPCS: 36415; 80053; 80061; 84443; 85025

== ENCOUNTER 2023-05-22 12:12 | Inpatient (IN) | payer MEDICARE, SELFPAY ==
[2023-05-22] VITALS (12 sets, daily range): BP systolic 116–179; BP diastolic 56–98; PULSE 74–116; RESP 13–20; TEMP 36.1–37; O2SAT 91–99; BMI 31.1; BMI 30.3
--- NOTE | ~2023-05-22 | XR_ITS ---
EXAMINATION: XR CHEST CLINICAL INFORMATION: A. Fib COMPARISON: Chest x-ray January 17, 2023 TECHNIQUE: Frontal view of the chest was obtained. FINDINGS: Cardiac silhouette is normal in size. The lungs are well aerated. There is no lobar consolidation. Blunting of left costophrenic angle likely represents atelectasis, however, trace amount of pleural fluid is not excluded. No pneumothorax. XR/XR chest 1V IMPRESSION: Blunting of left costophrenic angle likely represents atelectasis, however, trace amount of pleural fluid is not excluded.
--- NOTE | 2023-05-22 12:13 | ECG_ITS ---
Test Reason : AFIB Blood Pressure : / mmHG Vent. Rate : 127 BPM Atrial Rate : 000 BPM P-R Int : 000 ms QRS Dur : 088 ms QT Int : 354 ms P-R-T Axes : 000 143 019 degrees QTc Int : 514 ms Atrial fibrillation with rapid ventricular response Low voltage QRS Cannot rule out Anterior infarct (cited on or before 22-MAY-2023) Abnormal ECG When compared with ECG of 17-JAN-2023 20:57, Atrial fibrillation has replaced Sinus rhythm Vent. rate has increased BY 66 BPM Referred By: Generic ED Physician Electronically Signed By:KENNEDY JEWELL
--- NOTE | 2023-05-22 12:52 | ED_ITS ---
HPI - Arrhythmia/Palpitations General Chief Complaint: Arrhythmia/Palpitations Stated Complaint: Afib Time Seen by Provider: 05/22/23 12:47 Source: patient Mode of arrival: ambulatory Limitations: no limitations History of Present Illness HPI narrative: 68 years old female presented to the emergency department complaining of palpitation, she has history of atrial fibrillation she is anticoagulated with warfarin complaint: rapid heart beat Onset (ago): hour(s) (6) Duration: constant Severity: moderate Context: occurred during rest Arrhythmia history: atrial fibrillation Associated symptoms: denies other symptoms Related Data Home Medications Medication Instructions Recorded Confirmed lamotrigine 100 mg tablet 250 mg PO BEDTIME 10/01/20 05/17/23 latanoprost 0.005 % eye drops 1 drp ophthalmic (eye) BEDTIME 10/01/20 05/17/23 trazodone 100 mg tablet 100 - 200 mg PO BEDTIME PRN Sleep 10/01/20 05/17/23 hydroxyzine HCl 25 mg tablet 12.5 - 25 mg PO DAILY PRN Anxiety 12/16/20 05/17/23 fluoxetine 20 mg capsule 20 mg PO QAM 12/01/21 05/17/23 ascorbic acid (vitamin C) 500 mg 1,000 mg PO DAILY 06/02/22 05/17/23 capsule cholecalciferol (vitamin D3) 50 50 mcg PO DAILY 06/08/22 05/17/23 mcg (2,000 unit) capsule (Vitamin D3) [id number]-[id number] 1 tab PO DAILY 06/08/22 05/17/23 tablet (Multivitamin 50 Plus tablet) magnesium oxide 400 mg PO DAILY 12/27/22 05/17/23 Previous Rx's Medication Instructions Recorded docusate sodium 100 mg capsule 100 mg PO BEDTIME #90 caps 12/20/21 polyethylene glycol 3350 17 17 g PO DAILY #510 grams 12/20/21 gram/dose oral powder (Miralax) warfarin 2.5 mg tablet See Rx Instructions PO DAILY #250 06/29/22 tabs amoxicillin 500 mg capsule 2,000 mg (4 x 500 mg) PO .before 08/09/22 dental visit PRN before dental procedure #4 caps albuterol sulfate 90 mcg/actuation 2 inh inhalation Q6-8H PRN 09/13/22 aerosol inhaler shortness of breath or wheezing #8.5 grams metoprolol tartrate 50 mg tablet 50 mg PO BID 90 days #180 tabs 01/30/23 alirocumab 150 mg/mL subcutaneous 150 mg subcut Q2W #2 mL 02/10/23 pen injector Allergies Allergy/AdvReac Type Severity Reaction Status Date / Time oxycodone [From PERCODAN] Allergy Intermediate HIVES Verified 05/17/23 10:58 rosuvastatin [From Crestor] AdvReac Intermediate body aches Verified 05/17/23 10:58 Hydrocodone-Acetaminophen AdvReac Unknown nausea and Uncoded 05/17/23 10:58 vomiting Review of Systems 2 Eyes: Eyes: Reports no additional eye complaints Cardiovascular: Cardiovascular: Reports rapid heart rate Respiratory: Respiratory: Reports no additional respiratory complaints [facility] Past Medical History Attestation statement: The following information was validated with the patient. 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, 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, 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 Are you a primary restorative care technician to a significant other at home: Yes Do you presently have visiting nurse or other home services: No Alcohol intake: current Alcohol intake frequency: holidays/special occasions only Patient Tobacco Use Status: Never used Tobacco Smoked in Last 30 Days: No e-Cigarette/Vaping Use: Never Used Use of substances other than those prescribed or required for medical reasons: No Advance Directives: No Advance Directives Information Provided: Yes service: No Current occupational status: retired 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 Current occupational exposures/hazards: No Cognitive needs: No Hearing needs: No Vision needs: Yes Physical Exam 2 Vital Signs: Vital Signs: Last Vital Signs Temp 97.9 F 05/22/23 12:30 Pulse 103 H 05/22/23 16:14 Resp 13 05/22/23 16:14 BP 151/82 H 05/22/23 16:14 Pulse Ox 93 05/22/23 16:14 O2 Del Method Room Air 05/22/23 16:14 BMI result Body Mass Index 31.1 Const: General: cooperative Nutritional Appearance: average body habitus Orientation/consciousness: patient oriented x3 Limitations: no limitations HEENT: Head: Yes normal to inspection General nose exam: Normal external nose present Face and sinus: Yes normal facial exam Mouth: Normal oral and palatal mucosa present Neck: Neck: Yes normal visual inspection Resp: Effort & Inspection: normal respiratory effort Cardio: Rate: tachycardic Rhythm: abnormal rhythm GI: Inspection: Yes normal to inspection Palpation (GI): Soft to palpation Skin: General skin exam: no rashes or lesions noted Neuro: General: patient oriented x3 Course Reevaluation(s) Reevaluation #1: Spoke with Dr Manley recommend flecanide 300 mg Time: 14:48 Medications Administered Discontinued Medications Generic Name Dose Route Start Last Admin Trade Name Freq PRN Reason Stop Dose Admin Diltiazem HCl 15 mg 05/22/23 14:19 05/22/23 14:30 Diltiazem Hcl 50 Mg/10 Ml Vial IVPUSH 05/22/23 14:20 15 mg STAT STA Administration Medical Decision Making Medical Decision Making [facility] Narrative: Patient presented with palpitation EKG does not triage showed a rapid AFib with rapid A.Fib rate 127 by EKG will give IV cardizem Differential Diagnosis Differential Diagnoses: The differential diagnosis associated with the presentation includes Rapid AFib/ACS Admission/Observation Consideration of admission/observation: Escalation of care including admission/observation considered Consult Healthcare Provider Management of the patient was discussed with: [employer] Sales Consultant make up editor Lab Data MDM Lab Attestation statement: I reviewed the patient's lab results. 05/22/23 13:05 05/22/23 13:05 Labs: Lab Results 05/22/23 05/22/23 Range/Units 13:04 13:05 WBC 4.9 (4.8-10.8) X10*3/uL RBC 4.63 (4.20-5.50) X10*6/uL Hgb 14.4 (12.0-16.0) g/dl Hct 42.3 (37.0-47.0) % MCV 91.4 (80.0-98.0) fL MCH 31.1 (27.0-33.0) pg MCHC 34.0 (31.0-35.0) g/dl RDW 12.7 (11.0-16.0) % Plt Count 162 (160-400) X10*3/uL MPV 9.8 (9.4-12.3) fL Immature Gran % (Auto) 0.0 (0.0-0.4) % Neut % (Auto) 54.9 (45-73) % Lymph % (Auto) 27.1 (20-40) % [place] % (Auto) 8.8 (2-11) % Eos % (Auto) 8.8 H (0-4) % Baso % (Auto) 0.4 (0-2) % Lymph # (Auto) 1.3 (1.2-4.9) X10*3/uL [place] # (Auto) 0.4 (0.1-1.2) X10*3/uL Eos # (Auto) 0.4 (0.0-0.4) X10*3/uL Baso # (Auto) 0.0 (0.0-0.2) X10*3/uL Abs Immat Gran (auto) 0.00 (0.00-0.03) X10*3/uL Absolute Neuts (auto) 2.7 (2.0-8.3) x10*3/uL Absolute Nucleated RBC 0.000 (0.0-0.012) X10*3/uL Nucleated RBC % (auto) 0.0 (0.0-0.2) /100WBC PT 34.9 H D (11.1-13.3) SEC INR 2.9 H (0.9-1.1) APTT 56.9 H (26.0-36.8) SEC Sodium 142 (135-145) mmol/L Potassium 3.9 (3.3-5.1) mmol/L Chloride 105 (96-108) mmol/L Carbon Dioxide 27 (22-29) mmol/L Anion Gap 14 (12-20) BUN 11 (9-16) mg/dL Creatinine 0.81 (0.5-1.4) mg/dL Estim Creat Clear Calc 80.3 Estimated GFR > 60 Random Glucose 91 (60-115) mg/dL Calcium 10.0 (8.4-10.2) mg/dL Total Bilirubin 0.4 (0.0-1.0) mg/dL AST 23 (5-31) U/L ALT 24 (0-31) U/L Alkaline Phosphatase 86 (39-117) U/L Troponin I High Sens < 2.7 (<3.5-17.0) ng/L Total Protein 7.8 (6.5-8.0) g/dL Albumin 4.5 (3.5-5.0) g/dL Independent Interpretation I performed an independent interpretation of an: EKG (Rapid AFib rate 127) Independent Historian Clinical information obtained from an independent historian. History obtained from or confirmed by: Spouse Critical Care Time Critical Care Time Critical Care Time: Yes Total Critical Care Time: 60 Attestation: IV cardizem and titration. flecainide po Discharge Plan Discharge Clinical Impression: Atrial fibrillation with rapid ventricular response Patient Disposition: Admitted As Inpatient
[2023-05-22 13:10] LABS: MANUAL DIFF FLAG NO
[2023-05-22 13:13] LABS: Basophils Percent Auto 0.4 % (0-2); Eosinophils Absolute Auto 0.4 X10*3/uL (0.0-0.4); Eosinophils Percent Auto 8.8 % (0-4); Hematocrit 42.3 % (37.0-47.0); Hemoglobin 14.4 g/dl (12.0-16.0); Lymphocytes Absolute Auto 1.3 X10*3/uL (1.2-4.9); Lymphocytes Percent Auto 27.1 % (20-40); Mean Corpuscular Hemoglobin 31.1 pg (27.0-33.0); Mean Corpuscular Volume 91.4 fL (80.0-98.0); Mean Platelet Volume 9.8 fL (9.4-12.3); Monocytes Absolute Auto 0.4 X10*3/uL (0.1-1.2); Monocytes Percent Auto 8.8 % (2-11); Neutrophils Absolute Auto 2.7 x10*3/uL (2.0-8.3); Neutrophils Percent Auto 54.9 % (45-73); Platelet Count 162 X10*3/uL (160-400); Red Blood Count 4.63 X10*6/uL (4.20-5.50); Red Cell Distribution Width 12.7 % (11.0-16.0); White Blood Count 4.9 X10*3/uL (4.8-10.8)
[2023-05-22 13:18] LABS: INTERNATIONAL NORM RATIO 2.9 (0.9-1.1); Prothrombin Time 34.9 SEC (11.1-13.3)
[2023-05-22 13:20] LABS: Partial Thromboplastin Time 56.9 SEC (26.0-36.8)
[2023-05-22 13:33] LABS: Alanine Aminotransferase 24 U/L (0-31); Albumin Level 4.5 g/dL (3.5-5.0); Alkaline Phosphatase 86 U/L (39-117); Anion Gap 14 (12-20); Aspartate Amino Transferase 23 U/L (5-31); Bilirubin Total 0.4 mg/dL (0.0-1.0); Blood Urea Nitrogen 11 mg/dL (9-16); Carbon Dioxide 27 mmol/L (22-29); Chloride 105 mmol/L (96-108); Creatinine Clr Calc Pharmacy 80.3; Estimated Glomerular Filt Rate > 60; Glucose Random 91 mg/dL (60-115); Potassium 3.9 mmol/L (3.3-5.1); Sodium 142 mmol/L (135-145); Total Protein 7.8 g/dL (6.5-8.0)
[2023-05-22 13:41] LABS: Troponin-I High Sensitivity < 2.7 ng/L (<3.5-17.0)
--- NOTE | 2023-05-22 14:21 | PC.NURSE ---
pt is alert and oriented, skin pwd, respirations even and unlabored, pt reports for the last 2 weeks on and off going in a-fib, it happened again today while cleaning her stove and doing laundry, pt is reporting that her heart is palpating/ having chest pressure all across her chest, pain at 7/10, feeling sob and having a headache-pt reports typically does not get headaches, a-fib on the monitor ranges from 120-116's
[2023-05-22] MEDS: dilTIAZem HCL 50 MG/10 ML VIAL 15 MG IVPUSH (14:30)
[2023-05-22] MEDS: Flecainide Acetate 50 MG TABLET 300 MG PO (16:24)
--- NOTE | 2023-05-22 16:38 | P.HPHOSP_ITS ---
History of Present Illness Date of Service: 05/22/23 <SETH Dougherty - Last Filed: 05/22/23 17:01> Attending physician on admission: Da Perales <SETH Dougherty - Last Filed: 05/22/23 17:01> Chief Complaint: palpitations <SETH Dougherty - Last Filed: 05/22/23 17:01> 68-year-old female with history of paroxysmal atrial fibrillation anticoagulated with Coumadin, hypertension, hyperlipidemia, mild intermittent asthma, and depression/anxiety presented to the ED earlier today for evaluation of palpitations. States she was seen in the ED at [facility] last week due to atrial fibrillation with RVR and converted so was discharged home. Yesterday she reports feeling fatigued and then today while cleaning the stove, developed recurrence of palpitations with associated shortness of breath and lightheadedness. She is currently still experienced palpitations as well as headache. Denies any chest pain. She also has had increased urinary frequency but denies any dysuria, hematuria, urgency. States she developed polyuria and dilute urine every time she goes into AFib with RVR. She did recently have COVID-19 in March and took Paxlovid for this but denies any current upper respiratory symptoms including cough, sore throat, congestion, fevers, chills., no known sick contacts. She denies any illicit drug use, cigarette smoking, or alcohol use. Follows with Dr. Manley. Since arrival has been tachycardic 100s-120s, vitals otherwise stable, no hypotension. No leukocytosis. Renal function normal, lytes normal. Trop below detectable limits. UA pending. COVID/Flu pending. CXR pending. EKG shows afib rvr, rate 127, no chapo or depression. In the ED given 15mg IVpush diltiazem. Per cardiology, initiate cardizem drip per protocol and initiate flecanaide. < SETH Dougherty - Last Filed: 05/22/23 17:01> 68-year-old female with history of paroxysmal atrial fibrillation anticoagulated with Coumadin, hypertension, hyperlipidemia, mild intermittent asthma, and depression/anxiety presented to the ED earlier today for evaluation of palpitations. States she was seen in the ED at [facility] last week due to atrial fibrillation with RVR and converted so was discharged home. Yesterday she reports feeling fatigued and then today while cleaning the stove, developed recurrence of palpitations with associated shortness of breath and lightheadedness. She is currently still experienced palpitations as well as headache. Denies any chest pain. She also has had increased urinary frequency but denies any dysuria, hematuria, urgency. States she developed polyuria and dilute urine every time she goes into AFib with RVR. She did recently have COVID-19 in March and took Paxlovid for this but denies any current upper respiratory symptoms including cough, sore throat, congestion, fevers, chills., no known sick contacts. She denies any illicit drug use, cigarette smoking, or alcohol use. Follows with Dr. Manley. Since arrival has been tachycardic 100s-120s, vitals otherwise stable, no hypotension. No leukocytosis. Renal function normal, lytes normal. Trop below detectable limits. UA pending. COVID/Flu pending. CXR pending. EKG shows afib rvr, rate 127, no chapo or depression. In the ED given 15mg IVpush diltiazem. Per cardiology, initiate cardizem drip per protocol and initiate flecanaide. < Da Perales MD - Last Filed: 05/23/23 09:49> Review of Systems 2 Review of Systems: General: No fevers, malaise, unintentional weight loss HEENT: No blurred vision, diplopia. No sore throat, nasal congestion, rhinorrhea, sinus pain, ear pain Cardiovascular: +lightheadedness, +palpitations. No chest pain or leg edema Respiratory: +dyspnea. No wheezing, cough GI: No abdominal pain, nausea, vomiting, diarrhea, constipation, melena, hematochezia : +polyuria. No dysuria, hematuria, decreased urinary output MSK: No myalgia, back pain Neuro: No headaches, weakness, paresthesias Skin: No rashes or lesions <SETH Dougherty - Last Filed: 05/22/23 17:01> [facility] Medical History: Medical History Hypertension Asthma Depression Anxiety Chronic low back pain On anticoagulant therapy On beta francisco at home PAF (paroxysmal atrial fibrillation) <SETH Dougherty - Last Filed: 05/22/23 17:01> Family History: Family History Father Myocardial infarction CVD (cardiovascular disease) Mother Mental health disorder Sister Mental health disorder <SETH Dougherty - Last Filed: 05/22/23 17:01> Surgical History: Surgical History H/O colonoscopy History of evacuation of hematoma History of bowel resection History of knee surgery <SETH Dougherty - Last Filed: 05/22/23 17:01> Social History: Social History Household Members: Spouse, Family and Children 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:: , 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, 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 Current occupational exposures/hazards: No Cognitive needs: No Hearing needs: No Vision needs: Yes <SETH Dougherty - Last Filed: 05/22/23 17:01> Meds Allergies/Adverse reactions: Allergies Allergy/AdvReac Type Severity Reaction Status Date / Time oxycodone [From PERCODAN] Allergy Intermediate HIVES Verified 05/17/23 10:58 rosuvastatin [From Crestor] AdvReac Intermediate body aches Verified 05/17/23 10:58 Hydrocodone-Acetaminophen AdvReac Unknown nausea and Uncoded 05/17/23 10:58 vomiting <SETH Dougherty - Last Filed: 05/22/23 17:01> Active Medications: Current Medications Diltiazem HCl 125 mg/ Sodium (Chloride) 125 mls @ 0 mls/hr IVCONT .Q0M CHE; Protocol <SETH Dougherty - Last Filed: 05/22/23 17:01> Home medications: Home Medications Medication Instructions Recorded Confirmed Last Taken Type lamotrigine 100 mg tablet 250 mg PO BEDTIME 10/01/20 05/22/23 05/21/23 History latanoprost 0.005 % eye drops 1 drp ophthalmic (eye) BEDTIME 10/01/20 05/22/23 05/21/23 History trazodone 100 mg tablet 100 - 200 mg PO BEDTIME Sleep 10/01/20 05/22/23 05/21/23 History hydroxyzine HCl 25 mg tablet 25 mg PO DAILY PRN Anxiety 12/16/20 05/22/23 05/21/23 History fluoxetine 20 mg capsule 20 mg PO DAILY 12/01/21 05/22/23 05/21/23 History ascorbic acid (vitamin C) 500 mg 1,000 mg PO DAILY 06/02/22 05/22/23 05/21/23 History capsule cholecalciferol (vitamin D3) 50 50 mcg PO DAILY 06/08/22 05/22/23 05/21/23 History mcg (2,000 unit) capsule (Vitamin D3) ifaamhsxxyfr-syqyckqn-zhheyy 1 tab PO DAILY 06/08/22 05/22/23 05/21/23 History tablet (Multivitamin 50 Plus tablet) acetaminophen 500 mg tablet 1,000 mg PO DAILY PRN Pain 05/22/23 05/22/23 05/21/23 History (Acetaminophen Extra Strength) alirocumab 150 mg/mL subcutaneous 150 mg subcut Q14D 05/22/23 05/22/23 05/09/23 History pen injector warfarin 2.5 mg tablet 5 mg PO SUTUTHSA@1800 05/22/23 05/22/23 05/21/23 History warfarin 2.5 mg tablet 7.5 mg PO MOWEFR@1800 05/22/23 05/22/23 05/21/23 History <SETH Dougherty - Last Filed: 05/22/23 17:01> Physical Exam 2 Vital Signs and Narrative: Vital Signs: Last Vital Signs Temp 97.9 F 05/22/23 12:30 Pulse 103 H 05/22/23 16:14 Resp 13 05/22/23 16:14 BP 151/82 H 05/22/23 16:14 Pulse Ox 93 05/22/23 16:14 O2 Del Method Room Air 05/22/23 16:14 BMI result Body Mass Index 31.1 <SETH Dougherty - Last Filed: 05/22/23 17:01> Constitutional - Awake and Alert, No apparent distress Eyes - PERRLA, EOMI Cardiovascular - S1S2, irregularly irregular, tachycardic,1+ ble edema Respiratory - Normal lung expansion, Normal respiratory effort, No respiratory distress, CTA bilaterally Gastrointestinal - NT / ND; +BS; No rebound or guarding Extremities - no calf tenderness bilaterally, no swelling Skin - Warm/Dry Neurological - Alert & oriented x3 Psychological - Appropriate affect <SETH Dougherty - Last Filed: 05/22/23 17:01> Results Labs CBC and Chem 7: 05/23/23 06:36 05/23/23 06:36 <SETH Dougherty - Last Filed: 05/22/23 17:01> Labs: Laboratory Results - last 24 hr 05/22/23 05/22/23 13:04 13:05 MCV 91.4 MCH 31.1 MCHC 34.0 RDW 12.7 Plt Count 162 MPV 9.8 Immature Gran % (Auto) 0.0 Neut % (Auto) 54.9 Lymph % (Auto) 27.1 [place] % (Auto) 8.8 Eos % (Auto) 8.8 H Baso % (Auto) 0.4 Lymph # (Auto) 1.3 [place] # (Auto) 0.4 Eos # (Auto) 0.4 Baso # (Auto) 0.0 Abs Immat Gran (auto) 0.00 Absolute Neuts (auto) 2.7 Absolute Nucleated RBC 0.000 Nucleated RBC % (auto) 0.0 PT 34.9 H D INR 2.9 H APTT 56.9 H Anion Gap 14 Estim Creat Clear Calc 80.3 Estimated GFR > 60 Random Glucose 91 Calcium 10.0 Total Bilirubin 0.4 AST 23 ALT 24 Alkaline Phosphatase 86 Troponin I High Sens < 2.7 Total Protein 7.8 Albumin 4.5 <SETH Dougherty - Last Filed: 05/22/23 17:01> Assessment and Plan (1) Atrial fibrillation with rapid ventricular response: Status: Acute <SETH Dougherty - Last Filed: 05/22/23 17:01> 68-year-old female with history of paroxysmal atrial fibrillation anticoagulated with Coumadin, hypertension, hyperlipidemia, mild intermittent asthma, and depression/anxiety admitted for further management of afib with rvr. #Paroxysmal atrial fibrillation with rvr -ekg with afib rvr, rate 127, no chapo/depressions -IV cardizem drip per protocol per cardiology -Give 300mg flecanaide x1 per cards -Continue coumadin, INR therapeutic 2.9 -Possible cardioversion tomorrow, NPO after midnight -monitor on telemetry -follow inr -rule out infection as cause of rvr- ua/uc, cxr, flu/covid pending #HTN -bp reasonably controlled -continue metoprolol #HLD -on alirocumab inj q2w #Mild intermittent asthma -no exacerbation, albuterol prn #Mood disorder -continue home meds DVT prophylaxis- coumadin Full code pt requires inpt stay at least 2 midnights due to afib with rvr on cardizem drip requiring expert consultation and possible cardioversion <SETH Dougherty - Last Filed: 05/22/23 17:01> Quality Stroke Does the patient have a stroke diagnosis?: No <SETH Dougherty - Last Filed: 05/22/23 17:01> VTE Prior VTE?: No <SETH Dougherty - Last Filed: 05/22/23 17:01> VTE Risk Level:: Medical - moderate - high <SETH Dougherty - Last Filed: 05/22/23 17:01> VTE Device Contraindication: Treatment Not Indicated <SETH Dougherty - Last Filed: 05/22/23 17:01> VTE Drug Contraindication: N/A - Med Ordered <SETH Dougherty - Last Filed: 05/22/23 17:01>
[2023-05-22 16:41] LABS: Appearance Urine Clear; Color Urine Yellow; Glucose Urine UA Negative (Negative); Leukocyte Esterase Urine Trace (Negative); Nitrite Urine Negative (Negative); Specific Gravity - Urine <= 1.005 (1.005-1.025); UMIC TRIGGER UACC YES; Urine Blood Negative (Negative); Urine Ketones Negative (Negative); Urine Protein Negative (Neg-Trace)
[2023-05-22 16:58] LABS: IDNOW Serial# 58CA691E; Influenza A Negative (Negative); Influenza B2 Negative (Negative)
[2023-05-22 17:00] LABS: COVID-19 Test Negative (Negative); IDNOW Serial# 9DB6401D
[2023-05-22 17:10] LABS: Bacteria Urine None Seen (None Seen); Hyaline Casts Urine 0-2 /LPF (0-2); RBC Urine 0-2 /HPF (0-2); Squamous Epithelial Cell Urine 0-2 /HPF (0-2); WBC Urine 0-5 /HPF (0-5)
--- NOTE | 2023-05-22 18:34 | PHA.MEDREC ---
Pharmacy Consult ? Medication Reconciliation Pharmacy has completed the medication reconciliation. Confirmed medication with patient. Patient reports that tomorrow is her day to take Praluent injection. says he will bring it in and check in with nurse. Also states that its been about 3 months since she has taken Hydroxyzine 25mg. I left it on the med rec.
--- NOTE | 2023-05-22 20:00 | PC.NURSE ---
pt axox4 nad resting comfortably in stretcher. pt denies pain at this time. afib on monitor heart rate ranging 90-116 bpm. sarthak qureshi aware. call nevarez within reach.
[2023-05-22] MEDS: Acetaminophen 325 MG TABLET 650 MG PO (21:11)
[2023-05-22] MEDS: lamoTRIgine 25 MG TABLET 250 MG PO (21:11)
[2023-05-22] MEDS: Docusate Sodium 100 MG CAPSULE PO (21:12)
[2023-05-22] MEDS: Metoprolol Tartrate 50 MG TABLET PO (21:12)
[2023-05-22] MEDS: traZODone HCL 100 MG TABLET PO ×2 (21:17→22:10)
[2023-05-22] MEDS: 0.9 % Sodium Chloride Flush 3 ML SYRINGE IVFLUSH (22:10)
[2023-05-22] MEDS: Warfarin Sodium 7.5 MG TABLET PO (22:10)
[2023-05-23 03:11] VITALS: BP 121/76; PULSE 92; RESP 20; TEMP 36.2; O2SAT 91
--- NOTE | 2023-05-23 07:00 | CA_ITS ---
Transthoracic Echocardiogram Patient (Last, First, Middle): Rowena Velasquez, Gender: Female Date of : 1955 Age: 68 Procedure Date: 05/23/2023 Procedure Type: Transthoracic Echocardiogram Location: [facility] [place] Height: 172.72 cm Weight: 90.27 kg BSA: 2.04 m2 Heart Rate: bpm BP: 121 / 76 mmHg Credit Interviewer: SB Referring MD: Maddy ANN Symptoms: afib rvr Study Quality: Adequate ECG Rhythm: Sinus Conclusions: - The left ventricular systolic function is normal. The calculated ejection fraction is 69% by biplane method. - No obvious valvular pathology seen on this study. Findings Procedure Information Contrast agent, definity, is being given per protocol without apparent complications. Left Ventricle Normal left ventricular cavity size. The left ventricular systolic function is normal. The calculated ejection fraction is 69% by biplane method. There is no evidence of regional wall motion abnormalities. Diastolic function is normal for age. There is mild septal asymmetric hypertrophy. Right Ventricle Normal right ventricular cavity size and systolic function. Atria Both atria are normal in size. Aortic Valve There is a normal trileaflet aortic valve. There is no aortic valve stenosis. There is no aortic valve regurgitation. Mitral Valve The mitral valve appears normal. There is trace mitral valve regurgitation. There is no mitral valve stenosis. Pulmonic Valve The pulmonic valve is likely normal. Tricuspid Valve Normal tricuspid valve structure. There is trace tricuspid valve regurgitation. There is no evidence of pulmonary hypertension. Great Vessels The asc aorta is normal in size. Venous The inferior vena cava is normal in size and collapses greater than 50% with inspiration. Pericardium/Pleural There is no evidence of pericardial effusion. Prior Study Comparison No significant change compared to prior study dated: 02/01/2021. Recommendations, Care & Conclusions No obvious valvular pathology seen on this study. Measurements 2D Linear Measurements IVSd: 1.04 0.6-0.9/0.6-1.0 cm LVIDd: 4.33 3.9-5.3/4.2-5.9 cm LVIDd Index: 2.12 2.4-3.2/2.2-3.1 cm/m2 LVIDs: 3.19 2.0-3.6 cm LVPWd: 0.72 0.7-1.1 cm LA Diam: 3.50 2.7-3.8/3.0-4.0 cm LAIDs Index: 1.72 1.5-2.3 cm/m2 LV Mass: 150.82 67-162/88-224 g LV Mass Index: 73.93 43-95/49-115 g/m2 LVOT Diam: 2.00 3.0+(-)1.3 cm 2D Systolic Function EF 4C: 61.10 >55% EF 2C: 74.70 >55% EF BiP: 69.40 >55% Mitral Valve MV Pk E: 0.89 MV PK A: 0.49 MV Decel Time: 193.00 E/A: 1.80 E'Lateral: 7.72 E'Medial: 5.87 E/E' Med: 15.10 E/E' Lat: 11.50 PHT: 56.00 MVA PHT: 3.93 Decel Lander: 4.60 Aortic Valve AoV Pk Xander: 1.17 AoV Pk Grad: 5.00 CHHAYA: 3.27 LVOT LVOT Pk Xander: 1.22 LVOT Mn Xander: 0.81 LVOT VTI: 0.26 LVOT Pk Grad: 6.00 LVOT Mn Grad: 3.00 LVOT Diam: 2.00 LVOT Area: 3.14 Diastolic Function MV Pk E: 0.89 MV Pk A: 0.49 E/A: 1.80 E'Medial: 5.87 E/E' Med: 15.10 E' Laterial: 7.72 E/E' Lat: 11.50 Right Ventricle TAPSE (mm): 19.00 TVS' Xander: 11.00 Tricuspid Valve TR Pk Xander: 2.04 TR Pk Grad: 17.00 RA Press: 3.00 RVSP: 20.00 Great Vessels Aorta Sinus of Valsalva: 3.20 2.0-3.5 cm Ao Asc: 3.70 2.1-3.4 cm Pulmonary Valve PV Pk Xander: 0.88 Peak PV Grad: 3.00 Updated in Other Vendor System with Status of Final Vladimir Manley MD electronically signed on 05/23/2023 6:34:47 AM with status of Final
[2023-05-23 07:05] LABS: MANUAL DIFF FLAG NO
[2023-05-23 07:14] LABS: Basophils Percent Auto 0.4 % (0-2); Eosinophils Absolute Auto 0.3 X10*3/uL (0.0-0.4); Eosinophils Percent Auto 5.5 % (0-4); Hematocrit 42.3 % (37.0-47.0); Hemoglobin 14.5 g/dl (12.0-16.0); Imm Gran Abs Auto 0.01 X10*3/uL (0.00-0.03); Imm Gran Pct Auto 0.2 % (0.0-0.4); Lymphocytes Absolute Auto 1.5 X10*3/uL (1.2-4.9); Lymphocytes Percent Auto 33.8 % (20-40); Mean Corpuscular HGB Conc 34.3 g/dl (31.0-35.0); Mean Corpuscular Hemoglobin 31.5 pg (27.0-33.0); Mean Platelet Volume 9.9 fL (9.4-12.3); Monocytes Absolute Auto 0.4 X10*3/uL (0.1-1.2); Monocytes Percent Auto 9.5 % (2-11); Neutrophils Absolute Auto 2.3 x10*3/uL (2.0-8.3); Neutrophils Percent Auto 50.6 % (45-73); Platelet Count 178 X10*3/uL (160-400); Red Cell Distribution Width 12.7 % (11.0-16.0); White Blood Count 4.5 X10*3/uL (4.8-10.8)
[2023-05-23 07:30] VITALS: BP 137/81; PULSE 99; RESP 18; TEMP 36.8; O2SAT 91
[2023-05-23 07:32] LABS: Anion Gap 12 (12-20); Blood Urea Nitrogen 11 mg/dL (9-16); Calcium 9.6 mg/dL (8.4-10.2); Carbon Dioxide 29 mmol/L (22-29); Chloride 104 mmol/L (96-108); Creatinine Clr Calc Pharmacy 82.3; Estimated Glomerular Filt Rate > 60; Glucose Random 91 mg/dL (60-115); Potassium 3.7 mmol/L (3.3-5.1); Sodium 141 mmol/L (135-145)
[2023-05-23 07:40] LABS: INTERNATIONAL NORM RATIO 2.3 (0.9-1.1); Prothrombin Time 28.2 SEC (11.1-13.3)
--- NOTE | 2023-05-23 08:09 | ECG_ITS ---
Test Reason : AFib Blood Pressure : / mmHG Vent. Rate : 064 BPM Atrial Rate : 064 BPM P-R Int : 152 ms QRS Dur : 092 ms QT Int : 456 ms P-R-T Axes : 025 150 012 degrees QTc Int : 470 ms Normal sinus rhythm Right axis deviation Nonspecific ST and T wave abnormality When compared with ECG of 22-MAY-2023 12:22, Sinus rhythm has replaced Atrial fibrillation Vent. rate has decreased BY 63 BPM Referred By: Kennedy Jewell Electronically Signed By:KENNEDY JEWELL
--- NOTE | 2023-05-23 08:21 | P.CONCA_ITS ---
History of Present Illness History of Present Illness Date of Service: 05/23/23 Chief complaint: afib rvr Narrative: This is a cardiology consultation regarding atrial fibrillation with rapid rate. To recall, she is well known to us. She had atrial fibrillation ablation in 2013. Following that, she was briefly maintained on flecainide as she had some palpitations but we stopped it after some time. She was not even on beta- blockers. Then she was actually doing okay and did not have any atrial fibrillation for many years. More recently, the last few months she has had atrial fibrillation episodes/palpitations. Then beta-blockers were resumed and doses were increased. However, she still has palpitations and in fact has been having it for the last week or so. She states she went to [facility] but nothing was done and then now she is [place]. She got flecainide last night in the ER and she also got intravenous medications but as she continued to remain in atrial fibrillation, she was admitted. Apart from the palpitations, she otherwise feels okay. Review of Systems 2 Review of Systems: Yes all other systems are reviewed and are negative Constitutional: Constitutional: Reports as per HPI and Reports no additional constitutional complaints Eyes: Eyes: Reports as per HPI and Denies no additional eye complaints ENT: Denies system reviewed and no additional complaints, except as documented and Reports as per HPI Cardiovascular: Cardiovascular: Reports as per HPI, Reports no additional cardiovascular complaints, Denies acrocyanosis, Denies cool extremities, Denies chest pain, Denies leg edema, Denies lightheadedness, Reports palpitations and Denies dyspnea Respiratory: Respiratory: Reports as per HPI, Denies no additional respiratory complaints and Denies dyspnea Gastrointestinal: Gastrointestinal: Reports as per HPI and Denies no additional gastrointestinal complaints Genitourinary: Genitourinary: Reports as per HPI Musculoskeletal: Musculoskeletal: Reports no additional musculoskeletal complaints and Reports as per HPI Integumentary/Breasts: Skin/Breast: Reports system reviewed and no additional complaints, except as docu Neurologic: Reports system reviewed and no additional complaints, except as documented and Reports as per HPI Psychiatric: Psychiatric: Reports no additional psychiatric complaints and Reports as per HPI Endocrine: Endocrine: Reports no additional endocrine complaints, Reports as per HPI and Reports palpitations Hematologic/Lymphatic: Hematologic/Lymphatic: Reports no additional hematologic/lymphatic complaints and Reports as per HPI Allergic/Immunologic: Allergic/Immunologic: Reports no additional allergic/immunologic complaints and Reports as per [facility] Past Medical History Medical History Hypertension Asthma Depression Anxiety Chronic low back pain On anticoagulant therapy On beta [place] at home PAF (paroxysmal atrial fibrillation) Family History Family History Father Myocardial infarction CVD (cardiovascular disease) Mother Mental health disorder Sister Mental health disorder Surgical History Surgical History H/O colonoscopy History of evacuation of hematoma History of bowel resection History of knee surgery Social History Social History Household Members: Spouse, Family and Children 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:: , 2 children, 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 Current occupational exposures/hazards: No Cognitive needs: No Hearing needs: No Vision needs: Yes Meds Allergies Allergy/AdvReac Type Severity Reaction Status Date / Time oxycodone [From PERCODAN] Allergy Intermediate HIVES Verified 05/17/23 10:58 rosuvastatin [From Crestor] AdvReac Intermediate body aches Verified 05/17/23 10:58 Hydrocodone-Acetaminophen AdvReac Unknown nausea and Uncoded 05/17/23 10:58 vomiting Active Medications: Current Medications Acetaminophen (Acetaminophen 325 Mg Tablet) 650 mg PO Q6H PRN PRN Reason: Pain, Mild (Pain Scale 1-3) Last Admin: 05/22/23 21:11 Dose: 650 mg Albuterol Sulfate (Albuterol Sulfate 90 Mcg 8 Gm Inhaler) 2 puff INHALE Q6H PRN PRN Reason: shortness of breath or wheezing Ascorbic Acid (Ascorbic Acid 500 Mg Tablet) 1,000 mg PO DAILY [facility] Docusate Sodium (Docusate Sodium 100 Mg Capsule) 100 mg PO BEDTIME [facility] Last Admin: 05/22/23 21:12 Dose: 100 mg Fluoxetine HCl (Fluoxetine Hcl 20 Mg Capsule) 20 mg PO DAILY [facility] Hydroxyzine HCl (Hydroxyzine Hcl 25 Mg Tablet) 25 mg PO DAILY PRN PRN Reason: Anxiety Diltiazem HCl 125 mg/ Sodium (Chloride) 125 mls @ 0 mls/hr IVCONT .Q0M [facility]; Protocol Influenza Virus Vaccine (Flu Vacc [id number](6mos Up)/Pf 0.5 Ml Syringe) 0.5 ml IM .ONCE ONE Stop: 05/23/23 11:01 Lamotrigine (Lamotrigine 25 Mg Tablet) 250 mg PO BEDTIME [facility] Last Admin: 05/22/23 21:11 Dose: 250 mg Latanoprost (Latanoprost 0.005 % Ophth Milvia 2.5 Ml Drops) 1 drop EYE-BOTH BEDTIME [facility] Last Admin: 05/22/23 22:09 Dose: Not Given Metoprolol Tartrate (Metoprolol Tartrate 50 Mg Tablet) 50 mg PO BID [facility]; Protocol Last Admin: 05/22/23 21:12 Dose: 50 mg Multivitamins/Vitamin C (Multivitamin Tablet) 1 tab PO DAILY [facility] Ondansetron HCl (Ondansetron Hcl 4 Mg/2 Ml Vial) 4 mg IVPUSH Q8H PRN PRN Reason: Nausea and Vomiting Polyethylene Glycol (Polyethylene Glycol 3350 17 Gm Powd.Pack) 17 gm PO DAILY [facility] Senna (Sennosides 8.6 Mg Tablet) 17.2 mg PO BEDTIME PRN PRN Reason: Constipation Sodium Chloride (0.9 % Sodium Chloride Flush 3 Ml Syringe) 3 ml IVFLUSH QSHIFT [facility] Last Admin: 05/22/23 22:10 Dose: 3 ml Trazodone HCl (Trazodone Hcl 100 Mg Tablet) 100 mg PO BEDTIME MRX1 [facility] Last Admin: 05/22/23 22:10 Dose: 100 mg Vitamin D (Cholecalciferol (Vitamin D3) 25 Mcg Tablet) 50 mcg PO DAILY [facility] Warfarin Sodium (Warfarin Sodium 5 Mg Tablet) 5 mg PO SUTUTHSA@1800 [facility] Warfarin Sodium (Warfarin Sodium 7.5 Mg Tablet) 7.5 mg PO MOWEFR@1800 [facility] Last Admin: 05/22/23 22:10 Dose: 7.5 mg Home Medications Medication Instructions Recorded Confirmed Last Taken Type lamotrigine 100 mg tablet 250 mg PO BEDTIME 10/01/20 05/22/23 05/21/23 History latanoprost 0.005 % eye drops 1 drp ophthalmic (eye) BEDTIME 10/01/20 05/22/23 05/21/23 History trazodone 100 mg tablet 100 - 200 mg PO BEDTIME Sleep 10/01/20 05/22/23 05/21/23 History hydroxyzine HCl 25 mg tablet 25 mg PO DAILY PRN Anxiety 12/16/20 05/22/23 05/21/23 History fluoxetine 20 mg capsule 20 mg PO DAILY 12/01/21 05/22/23 05/21/23 History ascorbic acid (vitamin C) 500 mg 1,000 mg PO DAILY 06/02/22 05/22/23 05/21/23 History capsule cholecalciferol (vitamin D3) 50 50 mcg PO DAILY 06/08/22 05/22/23 05/21/23 History mcg (2,000 unit) capsule (Vitamin D3) [id number] 1 tab PO DAILY 06/08/22 05/22/23 05/21/23 History tablet (Multivitamin 50 Plus tablet) acetaminophen 500 mg tablet 1,000 mg PO DAILY PRN Pain 05/22/23 05/22/23 05/21/23 History (Acetaminophen Extra Strength) alirocumab 150 mg/mL subcutaneous 150 mg subcut Q14D 05/22/23 05/22/23 05/09/23 History pen injector warfarin 2.5 mg tablet 5 mg PO SUTUTHSA@1800 05/22/23 05/22/23 05/21/23 History warfarin 2.5 mg tablet 7.5 mg PO MOWEFR@1800 05/22/23 05/22/23 05/21/23 History Physical Exam 2 Vital Signs: Vital Signs: Last Vital Signs Temp 98.3 F 05/23/23 07:30 Pulse 99 05/23/23 07:30 Resp 18 05/23/23 07:30 BP 137/81 05/23/23 07:30 Pulse Ox 91 L 05/23/23 07:30 O2 Del Method Room Air 05/23/23 07:30 BMI result Body Mass Index 30.3 Const: General: comfortable and no acute distress O rientation/consciousness: patient oriented x3 HEENT: Other: Unremarkable Head: Yes normal to inspection Neck: Neck: Yes normal visual inspection Chest: Chest palpation & inspection: normal inspection of the chest Resp: Auscultation: clear to auscultation bilaterally Cardio: Palpation: normal PMI Heart sounds: S1 normal heart sound present, S2 normal heart sound present, no gallops, no murmurs and no rubs GI: Palpation (GI): Soft to palpation Back/Spine/Pelvis: Other: unremarkable Skin: General skin exam: no rashes or lesions noted Neuro: General: patient oriented x3 Extrem: General: Yes normal to inspection Psych: Mental Status: mental status grossly normal Objective Labs and Meds 05/23/23 06:36 05/23/23 06:36 Lab results: Laboratory Results - last 24 hr 05/22/23 05/22/23 05/22/23 13:04 13:05 16:34 WBC 4.9 RBC 4.63 Hgb 14.4 Hct 42.3 MCV 91.4 MCH 31.1 MCHC 34.0 RDW 12.7 Plt Count 162 MPV 9.8 Immature Gran % (Auto) 0.0 Neut % (Auto) 54.9 Lymph % (Auto) 27.1 [place] % (Auto) 8.8 Eos % (Auto) 8.8 H Baso % (Auto) 0.4 Lymph # (Auto) 1.3 [place] # (Auto) 0.4 Eos # (Auto) 0.4 Baso # (Auto) 0.0 Abs Immat Gran (auto) 0.00 Absolute Neuts (auto) 2.7 Absolute Nucleated RBC 0.000 Nucleated RBC % (auto) 0.0 PT 34.9 H D INR 2.9 H APTT 56.9 H Sodium 142 Potassium 3.9 Chloride 105 Carbon Dioxide 27 Anion Gap 14 BUN 11 Creatinine 0.81 Estim Creat Clear Calc 80.3 Estimated GFR > 60 Random Glucose 91 Calcium 10.0 Total Bilirubin 0.4 AST 23 ALT 24 Alkaline Phosphatase 86 Troponin I High Sens < 2.7 Total Protein 7.8 Albumin 4.5 Urine Color Yellow Urine Appearance Clear Urine pH 7.0 Ur Specific [place] <= 1.005 Urine Protein Negative Urine Glucose (UA) Negative Urine Ketones Negative Urine Blood Negative Urine Nitrite Negative Ur Leukocyte Esterase Trace H Urine RBC 0-2 Urine WBC 0-5 Ur Squamous Epith Cells 0-2 Urine Bacteria None Seen Hyaline Casts 0-2 COVID-19 (RENAN) Negative COVID-19 Clin Com See Note Influenza Type A (KOTA) Negative Influenza Type B (KOTA) Negative Influenza A & B Note See Note 05/23/23 06:36 WBC 4.5 L RBC 4.60 Hgb 14.5 Hct 42.3 MCV 92.0 MCH 31.5 MCHC 34.3 RDW 12.7 Plt Count 178 MPV 9.9 Immature Gran % (Auto) 0.2 Neut % (Auto) 50.6 Lymph % (Auto) 33.8 [place] % (Auto) 9.5 Eos % (Auto) 5.5 H Baso % (Auto) 0.4 Lymph # (Auto) 1.5 [place] # (Auto) 0.4 Eos # (Auto) 0.3 Baso # (Auto) 0.0 Abs Immat Gran (auto) 0.01 Absolute Neuts (auto) 2.3 Absolute Nucleated RBC 0.000 Nucleated RBC % (auto) 0.0 PT 28.2 H INR 2.3 H APTT Sodium 141 Potassium 3.7 Chloride 104 Carbon Dioxide 29 Anion Gap 12 BUN 11 Creatinine 0.78 Estim Creat Clear Calc 82.3 Estimated GFR > 60 Random Glucose 91 Calcium 9.6 Total Bilirubin AST ALT Alkaline Phosphatase Troponin I High Sens Total Protein Albumin Urine Color Urine Appearance Urine pH Ur Specific [place] Urine Protein Urine Glucose (UA) Urine Ketones Urine Blood Urine Nitrite Ur Leukocyte Esterase Urine RBC Urine WBC Ur Squamous Epith Cells Urine Bacteria Hyaline Casts COVID-19 (RENAN) COVID-19 Clin Com Influenza Type A (KOTA) Influenza Type B ([facility]OTA) Influenza A & B Note ECG Interpretation: EKG with atrial fibrillation at a rate of 127/Min; can not exclude old anterior infarct but could be from body habitus; PVC versus aberrant conduction. EKG today, with sinus rhythm at 64/Min; nonspecific ST-T changes; normal LA and corrected QT. Imaging Radiologist's impression: Impressions Chest X-Ray 05/22/23 16:24 IMPRESSION: Blunting of left costophrenic angle likely represents atelectasis, however, trace amount of pleural fluid is not excluded. Assessment and Plan (1) Atrial fibrillation with rapid ventricular response: Status: Acute Plan High sensitivity troponins unremarkable. While we were planning cardioversion, she actually spontaneously converted to sinus rhythm by herself while she was getting the bedside echocardiogram. Hence we will keep her on the current dose of beta-blockers. Add flecainide 50 mg b.i.d.. We will arrange outpatient Holter and then follow-up on her. We will discuss options including continuing antiarrhythmics long-term versus going for another ablation. Plan discussed with patient and she understands. Discussed with Dr. Perales. Procedures Date of Service Date of Service: 05/23/23
[2023-05-23] MEDS: Ascorbic Acid 500 MG TABLET 1000 MG PO (09:28)
[2023-05-23] MEDS: Cholecalciferol (Vitamin D3) 25 MCG TABLET 50 MCG PO (09:28)
[2023-05-23] MEDS: Metoprolol Tartrate 50 MG TABLET PO (09:28)
[2023-05-23] MEDS: polyethylene glycoL 3350 17 GM POWD.PACK PO (09:28)
[2023-05-23] MEDS: FLUoxetine HCl 20 MG CAPSULE PO (09:29)
[2023-05-23] MEDS: Multivitamin TABLET 1 TAB PO (09:29)
--- NOTE | 2023-05-23 09:49 | P.DS_ITS ---
DS: Providers Provider Date of Service: 05/23/23 Date of admission: 05/22/23 16:34 Primary care physician: Bonny Bueno MD Consults: 05/22/23 16:38 Consult to Cardiology Routine Consulting Provider: [facility] [place] Cardiovascular Services Reason for consultation: afib rvr DS: Diagnosis Discharge Diagnosis (1) Atrial fibrillation with rapid ventricular response: Status: Acute DS: Summary Hospital Course Hospital Course: admission hpi 68-year-old female with history of paroxysmal atrial fibrillation anticoagulated with Coumadin, hypertension, hyperlipidemia, mild intermittent asthma, and depression/anxiety presented to the ED earlier today for evaluation of palpitations. States she was seen in the ED at [facility] last week due to atrial fibrillation with RVR and converted so was discharged home. Yesterday she reports feeling fatigued and then today while cleaning the stove, developed recurrence of palpitations with associated shortness of breath and lightheadedness. She is currently still experienced palpitations as well as headache. Denies any chest pain. She also has had increased urinary frequency but denies any dysuria, hematuria, urgency. States she developed polyuria and dilute urine every time she goes into AFib with RVR. She did recently have COVID-19 in March and took Paxlovid for this but denies any current upper respiratory symptoms including cough, sore throat, congestion, fevers, chills., no known sick contacts. She denies any illicit drug use, cigarette smoking, or alcohol use. Follows with Dr. Manley. Since arrival has been tachycardic 100s-120s, vitals otherwise stable, no hypotension. No leukocytosis. Renal function normal, lytes normal. Trop below detectable limits. UA pending. COVID/Flu pending. CXR pending. EKG shows afib rvr, rate 127, no chapo or depression. In the ED given 15mg IVpush diltiazem. Per cardiology, initiate cardizem drip per protocol and initiate flecanaide. hospital course: Patient with a known history of AFIB and who has done well in the past following ablation, anticoagulated with Coumadin. She presented with palpitations and a flutter sensation for over a week and was found to be in Aflutter with RVR. She was given IV Cardizem and ultimately started on an IV Cardizem drip. She was evaluated by her principal examiner with a plan for cardioversion, but fortunately, she converted to sinus rhythm. As such, the principal examiner (Dr. Manley) recommended adding Flecainide and outpatient follow-up. Metoprolol dose has been reduced to 25 mg twice daily Time Attestation Discharge coordination time: Greater than 30 minutes Quality: Safe Use of Opioids Does Pt have an Active Cancer Diagnosis on the Problem List?: No Quality: Stroke Does the patient have a stroke diagnosis?: No Physical Exam Vital Signs: Vital Signs: Selected Entries 05/23/23 16:28 Pulse Rate 62 Respiratory Rate 18 Blood Pressure 121/61 Pulse Oximetry 93 Oxygen Delivery Me thod Room Air General: AO X 3, no acute distress Resp: CTA bilateral CVS: S1,S2,RRR GI: +BS, NT, no distention Skin: No rash Neuro: motor grossly intact Psych: appropriate affect DS: Data Data Completed and Pending Labs on day of discharge: Laboratory Results - last 24 hr 05/22/23 05/22/23 05/22/23 13:04 13:05 16:34 WBC 4.9 RBC 4.63 Hgb 14.4 Hct 42.3 MCV 91.4 MCH 31.1 MCHC 34.0 RDW 12.7 Plt Count 162 MPV 9.8 Immature Gran % (Auto) 0.0 Neut % (Auto) 54.9 Lymph % (Auto) 27.1 [place] % (Auto) 8.8 Eos % (Auto) 8.8 H Baso % (Auto) 0.4 Lymph # (Auto) 1.3 [place] # (Auto) 0.4 Eos # (Auto) 0.4 Baso # (Auto) 0.0 Abs Immat Gran (auto) 0.00 Absolute Neuts (auto) 2.7 Absolute Nucleated RBC 0.000 Nucleated RBC % (auto) 0.0 PT 34.9 H D INR 2.9 H APTT 56.9 H Sodium 142 Potassium 3.9 Chloride 105 Carbon Dioxide 27 Anion Gap 14 BUN 11 Creatinine 0.81 Estim Creat Clear Calc 80.3 Estimated GFR > 60 Random Glucose 91 Calcium 10.0 Total Bilirubin 0.4 AST 23 ALT 24 Alkaline Phosphatase 86 Troponin I High Sens < 2.7 Total Protein 7.8 Albumin 4.5 Urine Color Yellow Urine Appearance Clear Urine pH 7.0 Ur Specific [place] <= 1.005 Urine Protein Negative Urine Glucose (UA) Negative Urine Ketones Negative Urine Blood Negative Urine Nitrite Negative Ur Leukocyte Esterase Trace H Urine RBC 0-2 Urine WBC 0-5 Ur Squamous Epith Cells 0-2 Urine Bacteria None Seen Hyaline Casts 0-2 COVID-19 (RENAN) Negative COVID-19 Clin Com See Note Influenza Type A (KOTA) Negative Influenza Type B (KOTA) Negative Influenza A & B Note See Note 05/23/23 06:36 WBC 4.5 L RBC 4.60 Hgb 14.5 Hct 42.3 MCV 92.0 MCH 31.5 MCHC 34.3 RDW 12.7 Plt Count 178 MPV 9.9 Immature Gran % (Auto) 0.2 Neut % (Auto) 50.6 Lymph % (Auto) 33.8 [place] % (Auto) 9.5 Eos % (Auto) 5.5 H Baso % (Auto) 0.4 Lymph # (Auto) 1.5 [place] # (Auto) 0.4 Eos # (Auto) 0.3 Baso # (Auto) 0.0 Abs Immat Gran (auto) 0.01 Absolute Neuts (auto) 2.3 Absolute Nucleated RBC 0.000 Nucleated RBC % (auto) 0.0 PT 28.2 H INR 2.3 H APTT Sodium 141 Potassium 3.7 Chloride 104 Carbon Dioxide 29 Anion Gap 12 BUN 11 Creatinine 0.78 Estim Creat Clear Calc 82.3 Estimated GFR > 60 Random Glucose 91 Calcium 9.6 Total Bilirubin AST ALT Alkaline Phosphatase Troponin I High Sens Total Protein Albumin Urine Color Urine Appearance Urine pH Ur Specific [place] Urine Protein Urine Glucose (UA) Urine Ketones Urine Blood Urine Nitrite Ur Leukocyte Esterase Urine RBC Urine WBC Ur Squamous Epith Cells Urine Bacteria Hyaline Casts COVID-19 (RENAN) COVID-19 Clin Com Influenza Type A (KOTA) Influenza Type B (KOTA) Influenza A & B Note Discharge Plan Discharge Anticipated Discharge Date/Time: 05/23/23 09:59 Patient Disposition: Home, Self-Care Discharge Diagnosis: AFlutter with RVR Referrals: Bonny Bueno MD [Primary Care Provider] - 1 Week Discharge Medications: New flecainide 50 mg tablet 50 mg PO Q12H Qty: 60 0RF Rx Instructions: starting tonight metoprolol tartrate 25 mg tablet 25 mg PO BID Qty: 120 0RF Continued albuterol sulfate 90 mcg/actuation HFA aerosol inhaler 2 inh inhalation Q6-8H PRN (Reason: shortness of breath or wheezing) Qty: 8.5 2RF cholecalciferol (vitamin D3) [Vitamin D3] 50 mcg (2,000 unit) Capsule 50 mcg PO DAILY Multivitamin 50 Plus Tablet 1 tab PO DAILY warfarin 2.5 mg Tablet 5 mg PO SUTUTHSA@1800 acetaminophen [Acetaminophen Extra Strength] 500 mg Tablet 1,000 mg PO DAILY PRN (Reason: Pain) warfarin 2.5 mg tablet 7.5 mg PO MOWEFR@1800 Protocol: Dose Management Condition: Monday (Week One) Dose/Route: 5 mg Instruction: 2 x 2.5 mg tablets Condition: Monday Dose/Route: 7.5 mg Instruction: 3 x 2.5 mg tablets Condition: Monday Dose/Route: 5 mg Instruction: 2 x 2.5 mg tablets Condition: Monday Dose/Route: 7.5 mg Instruction: 3 x 2.5 mg tablets Condition: Dose/Route: 5 mg Instruction: 2 x 2.5 mg tablets Condition: Monday Dose/Route: 7.5 mg Instruction: 3 x 2.5 mg tablets Condition: Monday Dose/Route: 5 mg Instruction: 2 x 2.5 mg tablets Condition: Monday (Week Two) Dose/Route: 5 mg Instruction: 2 x 2.5 mg tablets Condition: Monday Dose/Route: 7.5 mg Instruction: 3 x 2.5 mg tablets Condition: Monday Dose/Route: 5 mg Instruction: 2 x 2.5 mg tablets Condition: Monday Dose/Route: 7.5 mg Instruction: 3 x 2.5 mg tablets Condition: Dose/Route: 5 mg Instruction: 2 x 2.5 mg tablets Condition: Monday Dose/Route: 7.5 mg Instruction: 3 x 2.5 mg tablets Condition: Monday Dose/Route: 5 mg Instruction: 2 x 2.5 mg tablets Protocol Text: Adjustment Start Date: Monday05/12/23 INR Value: 2.2 INR Date: 05/12/23 Recheck Date: 06/09/23 Additional Instructions: REVIEW FOOD LIST WEEKLY LESS [place] THIS WEEK DUE TO PAXLOVID AND COVID Rx Instructions: Take 2-3 tabs daily based on INR results alirocumab 150 mg/mL pen injector 150 mg subcut Q14D Patient Comments: monday every two weeks Rx Instructions: inject into abdomen, thigh, or upper arm (deltoid muscle); rotate sites NEXT DOSE DUE IS 05/23/23 fluoxetine 20 mg capsule 20 mg PO DAILY amoxicillin 500 mg capsule 2,000 mg PO .before dental visit PRN (Reason: before dental procedure) Qty: 4 2RF lamotrigine 100 mg tablet 250 mg PO BEDTIME latanoprost 0.005 % drops 1 drp ophthalmic (eye) BEDTIME trazodone 100 mg tablet 100 - 200 mg PO BEDTIME hydroxyzine HCl 25 mg tablet 25 mg PO DAILY PRN (Reason: Anxiety) polyethylene glycol 3350 [Miralax] 17 gram/dose powder 17 g PO DAILY Qty: 510 2RF docusate sodium 100 mg capsule 100 mg PO BEDTIME Qty: 90 3RF ascorbic acid (vitamin C) 500 mg capsule 1,000 mg PO DAILY Discontinued metoprolol tartrate 50 mg tablet 50 mg PO BID 90 Days Qty: 180 3RF Discharge Orders: Discharge Order (Routine); Ordered 05/23/23 Ordered By: Da Perales Diet: Advance to usual diet Activity on Discharge: As tolerated Stand Alone Forms: Patient Portal Discharge page Care Plan Goals: control of aflutter Health Concerns: aflutter/afib Plan of Treatment: take Flecainide 50 mg twice daily, starting tonight and follow up with Dr. Manley metoprolol dose has been reduced from 50 mg twice daily to 25 mg twice daily Assessment: see above Patient Instructions: Flecainide (By mouth)
--- NOTE | 2023-05-23 10:14 | MHC.CM.PN ---
IMM 05/23. Pt self-care, lives at home with her , daughter, and granddaughter. Pts will transport home at D/C. HCP completed with pt, now on file. PCP: Dr. Bonny Bueno
[2023-05-23 11:15] VITALS: BP 91/53; PULSE 60; RESP 20; TEMP 36.2; O2SAT 95
[2023-05-23 15:16] VITALS: BP 94/55; PULSE 59; RESP 20; TEMP 36.1; O2SAT 95
[2023-05-23 16:28] VITALS: BP 121/61; PULSE 62; RESP 18; O2SAT 93
--- NOTE | 2023-05-23 16:28 | PC.NURSE ---
Ambulated on the hallway 200 feet , steady gait , no sob no dizziness, no chest pain BP 121/61 , pt wiil go home after supper
--- NOTE | 2023-05-23 16:29 | P.PNIM_ITS ---
Subjective Subjective Date of Service: 05/23/23 Interval History: admitted with afib with RVR, given iv cardizem and has converted to sinus Review of Systems Gen: no fever Resp: no sob, no cough CV: no chest, no OZUNA, no leg edema GI: No n/v, no abd pain Neuro: No confusion Physical Exam 2 Vital Signs: Vital Signs: Last Vital Signs Temp 96.9 F 05/23/23 15:16 Pulse 62 05/23/23 16:28 Resp 18 05/23/23 16:28 BP 121/61 05/23/23 16:28 Pulse Ox 93 05/23/23 16:28 O2 Del Method Room Air 05/23/23 16:28 O2 Flow Rate 2 05/23/23 15:16 BMI result Body Mass Index 30.3 Objective Data Active Medications Acetaminophen (Acetaminophen 325 Mg Tablet) 650 mg PO Q6H PRN PRN Reason: Pain, Mild (Pain Scale 1-3) Last Admin: 05/22/23 21:11 Dose: 650 mg Documented By: HECTOR Albuterol Sulfate (Albuterol Sulfate 90 Mcg 8 Gm Inhaler) 2 puff INHALE Q6H PRN PRN Reason: shortness of breath or wheezing Ascorbic Acid (Ascorbic Acid 500 Mg Tablet) 1,000 mg PO DAILY [facility] Last Admin: 05/23/23 09:28 Dose: 1,000 mg Documented By: DANYA Docusate Sodium (Docusate Sodium 100 Mg Capsule) 100 mg PO BEDTIME [facility] Last Admin: 05/22/23 21:12 Dose: 100 mg Documented By: HECTOR Fluoxetine HCl (Fluoxetine Hcl 20 Mg Capsule) 20 mg PO DAILY [facility] Last Admin: 05/23/23 09:29 Dose: 20 mg Documented By: DANYA Hydroxyzine HCl (Hydroxyzine Hcl 25 Mg Tablet) 25 mg PO DAILY PRN PRN Reason: Anxiety Diltiazem HCl 125 mg/ Sodium (Chloride) 125 mls @ 0 mls/hr IVCONT .Q0M [facility]; Protocol Lamotrigine (Lamotrigine 25 Mg Tablet) 250 mg PO BEDTIME [facility] Last Admin: 05/22/23 21:11 Dose: 250 mg Documented By: HECTOR Latanoprost (Latanoprost 0.005 % Ophth Milvia 2.5 Ml Drops) 1 drop EYE-BOTH BEDTIME [facility] Last Admin: 05/22/23 22:09 Dose: Not Given Documented By: JENSEN Non-Admin Reason: Med Not Available Metoprolol Tartrate (Metoprolol Tartrate 50 Mg Tablet) 50 mg PO BID [facility]; Protocol Last Admin: 05/23/23 09:28 Dose: 50 mg Documented By: DANYA Multivitamins/Vitamin C (Multivitamin Tablet) 1 tab PO DAILY [facility] Last Admin: 05/23/23 09:29 Dose: 1 tab Documented By: DANYA Ondansetron HCl (Ondansetron Hcl 4 Mg/2 Ml Vial) 4 mg IVPUSH Q8H PRN PRN Reason: Nausea and Vomiting Polyethylene Glycol (Polyethylene Glycol 3350 17 Gm Powd.Pack) 17 gm PO DAILY [facility] Last Admin: 05/23/23 09:28 Dose: 17 gm Documented By: DANYA Senna (Sennosides 8.6 Mg Tablet) 17.2 mg PO BEDTIME PRN PRN Reason: Constipation Sodium Chloride (0.9 % Sodium Chloride Flush 3 Ml Syringe) 3 ml IVFLUSH QSHIFT [facility] Last Admin: 05/23/23 09:43 Dose: Not Given Documented By: DANYA Non-Admin Reason: GIVEN, med assessment won't let proceed Trazodone HCl (Trazodone Hcl 100 Mg Tablet) 100 mg PO BEDTIME MRX1 [facility] Last Admin: 05/22/23 22:10 Dose: 100 mg Documented By: JENSEN Vitamin D (Cholecalciferol (Vitamin D3) 25 Mcg Tablet) 50 mcg PO DAILY [facility] Last Admin: 05/23/23 09:28 Dose: 50 mcg Documented By: DANYA Warfarin Sodium (Warfarin Sodium 5 Mg Tablet) 5 mg PO SUTUTHSA@1800 [facility] Warfarin Sodium (Warfarin Sodium 7.5 Mg Tablet) 7.5 mg PO MOWEFR@1800 [facility] Last Admin: 05/22/23 22:10 Dose: 7.5 mg Documented By: JENSEN Labs 05/23/23 06:36 05/23/23 06:36 Labs: Laboratory Results - last 24 hr 05/22/23 05/23/23 16:34 06:36 MCV 92.0 MCH 31.5 MCHC 34.3 RDW 12.7 Plt Count 178 MPV 9.9 Immature Gran % (Auto) 0.2 Neut % (Auto) 50.6 Lymph % (Auto) 33.8 [place] % (Auto) 9.5 Eos % (Auto) 5.5 H Baso % (Auto) 0.4 Lymph # (Auto) 1.5 [place] # (Auto) 0.4 Eos # (Auto) 0.3 Baso # (Auto) 0.0 Abs Immat Gran (auto) 0.01 Absolute Neuts (auto) 2.3 Absolute Nucleated RBC 0.000 Nucleated RBC % (auto) 0.0 PT 28.2 H INR 2.3 H Anion Gap 12 Estim Creat Clear Calc 82.3 Estimated GFR > 60 Random Glucose 91 Calcium 9.6 Urine Color Yellow Urine Appearance Clear Urine pH 7.0 Ur Specific [place] <= 1.005 Urine Protein Negative Urine Glucose (UA) Negative Urine Ketones Negative Urine Blood Negative Urine Nitrite Negative Ur Leukocyte Esterase Trace H Urine RBC 0-2 Urine WBC 0-5 Ur Squamous Epith Cells 0-2 Urine Bacteria None Seen Hyaline Casts 0-2 COVID-19 (RENAN) Negative COVID-19 Clin Com See Note Influenza Type A (KOTA) Negative Influenza Type B (KOTA) Negative Influenza A & B Note See Note Quality Stroke Does the patient have a stroke diagnosis?: No VTE Prior VTE?: No VTE Risk Level:: Medical - moderate - high VTE Device Contraindication: Treatment Not Indicated VTE Drug Contraindication: N/A - Med Ordered
== END 2023-05-23 17:49 | disposition home or self-care (01) | DRG 310 ==
LOC: HO.ED 16:16 → HO.EDOVER 16:50 → HO.IMC 20:29
PROVIDERS: Admitting Provider Physician Assistant; Emergency Provider Emergency Medicine; PCP Internal Medicine; Visit Provider Internal Medicine
DX: I48.0 Paroxysmal atrial fibrillation (principal); J45.20 Mild intermittent asthma, uncomplicated; F41.9 Anxiety disorder, unspecified; F32.A Depression, unspecified; I10 Essential (primary) hypertension; E78.5 Hyperlipidemia, unspecified; Z20.822 Contact with and (suspected) exposure to COVID-19; Z79.01 Long term (current) use of anticoagulants; Z79.899 Other long term (current) drug therapy
CPT/HCPCS: 36415; 71045; 80048; 80053; 81001; 84484; 85025; 85610; 85730; 87502; 87635; 90686; 93005; 93306; 99285; Q9957

== ENCOUNTER → 2023-05-22 12:13 | Outpatient (BNV) | payer MEDICARE, SELFPAY | PROVIDERS: Emergency Provider Emergency Medicine; PCP Internal Medicine; Visit Provider Internal Medicine | DX: I48.91 Unspecified atrial fibrillation (principal) | CPT/HCPCS: 93010 ==

== ENCOUNTER 2023-05-22 16:34 | Outpatient (BNV) | payer MEDICARE, SELFPAY | END 2023-05-23 07:00 | PROVIDERS: Admitting Provider Physician Assistant; Emergency Provider Emergency Medicine; PCP Internal Medicine; Visit Provider Internal Medicine | DX: I48.91 Unspecified atrial fibrillation (principal) | CPT/HCPCS: 93010; 93306 ==

== ENCOUNTER → 2023-05-22 16:34 | Outpatient (BNV) | payer MEDICARE, SELFPAY | PROVIDERS: Admitting Provider Physician Assistant; Emergency Provider Emergency Medicine; PCP Internal Medicine; Visit Provider Internal Medicine | DX: I48.91 Unspecified atrial fibrillation (principal) | CPT/HCPCS: 99223 ==

== ENCOUNTER → 2023-05-22 16:34 | Outpatient (BNV) | payer MEDICARE, SELFPAY | PROVIDERS: Admitting Provider Physician Assistant; Emergency Provider Emergency Medicine; PCP Internal Medicine; Visit Provider Physician Assistant | DX: I48.91 Unspecified atrial fibrillation (principal) | CPT/HCPCS: 99223; 99238 ==

== ENCOUNTER → 2023-05-30 09:03 | Outpatient (REF) | payer MEDICARE, SELFPAY ==
--- NOTE | 2023-05-30 09:06 | HM_ITS ---
Conclusion: 1. Patient was monitored for total period of 2 days and 23 hours 2. Baseline was normal sinus rhythm with average heart of 63 beats per minute 3. No significant pauses noted but frequent sinus bradycardia noted with total 42% of time heart rate below 60 beats per minute 4. 1 episode of atrial fibrillation noted lasting 58 minutes with total burden of 2.4% with the fastest heart rate of 137 beats per minute 5. No patient reported events MTDD
== END ==
LOC: HO.CARD 09:03
PROVIDERS: Visit Provider Internal Medicine
DX: I48.91 Unspecified atrial fibrillation (principal)
CPT/HCPCS: 93242

== ENCOUNTER → 2023-05-30 09:06 | Outpatient (BNV) | payer MEDICARE, SELFPAY | PROVIDERS: Visit Provider Internal Medicine Cardiovascular Disease | DX: I48.0 Paroxysmal atrial fibrillation (principal) | CPT/HCPCS: 93244 ==

== ENCOUNTER 2023-06-09 08:02 | Outpatient (AMB) | payer MEDICARE, SELFPAY ==
--- NOTE | 2023-06-09 08:14 | MHC.OFFVISCO ---
Intake Intake Visit Reasons: Anticoagulation Allergies oxycodone [From PERCODAN] Allergy (Intermediate, Verified 06/09/23 08:05) HIVES rosuvastatin [From Crestor] Adverse Reaction (Intermediate, Verified 06/09/23 08:05) body aches Hydrocodone-Acetaminophen Adverse Reaction (Unknown, Uncoded 06/09/23 08:05) nausea and vomiting Medication List - Last Reconciled 06/09/23 by Komal Thomas RN acetaminophen (Acetaminophen Extra Strength) 1,000 mg PO DAILY PRN albuterol sulfate 90 mcg/actuation 2 inhalations inhalation Q6-8H PRN alirocumab 150 mg subcut Q14D amoxicillin 2,000 mg (4 x 500 mg) PO .before dental visit PRN ascorbic acid (vitamin C) 1,000 mg PO DAILY cholecalciferol (vitamin D3) (Vitamin D3) 50 mcg PO DAILY docusate sodium 100 mg PO BEDTIME flecainide 50 mg PO Q12H fluoxetine 20 mg PO DAILY hydroxyzine HCl 25 mg PO DAILY PRN lamotrigine 250 mg PO BEDTIME latanoprost 0.005% 1 drp ophthalmic (eye) BEDTIME metoprolol tartrate 25 mg PO BID [id number] (Multivitamin 50 Plus tablet) 1 tab PO DAILY polyethylene glycol 3350 (Miralax) 17 grams PO DAILY trazodone 100 - 200 mg PO BEDTIME warfarin 5 mg PO SUTUTHSA@1800 warfarin 7.5 mg See Protocol PO MOWEFR@1800 Nursing Note INR: 2.7- in therapeutic range of 2-3 Medications and supplements reviewed- now on flecainide with no interaction with warfarin per micromedex No changes in health, diet, medications, or supplements, Denies any signs and symptoms of bleeding or bruising or clotting. Bleeding, bruising, clotting discussed Nutritional guidance given Dose: 5mg x 4, 7.5mg x 3 F/U INR: 4 weeks Patient verbalizes understanding of instructions given pt upcoming cardiac ablation- will call acs with date Anti-Coag Initial Assessment Social Hx Patient Tobacco Use Status: Never used Tobacco alcohol intake: current Alcohol intake frequency: holidays/special occasions only Cardiovascular Hx: Arrhythmias (afib) and Varicose Veins Lung Disease HX: Asthma Musculoskeletal Hx: Arthritis Blood Disorder Hx: Hyperlipidemia GI Hx: Diverticulosis and Hemorrhoids Neurological Hx: Serious Head Injury Cancer HX: No Psych. Illness/Depression: Yes Coding Level of Care Code Est Patient Level 1 Diagnoses Current use of anticoagulant therapy Z79.01 Assessment & Plan Assessment & Plan (1) Current use of anticoagulant therapy: Code(s): Z79.01 - long-term (current) use of anticoagulants Category: Medical
[2023-06-09 08:15] LABS: Prothrombin Time Whole Bld POC 32.2 sec (11.1-13.5); ~PT, ~INR - Anti Coag Clinic 2.7 (0.9-1.1)
== END 2023-06-09 08:19 | disposition home or self-care (01) ==
LOC: HO.ACS 08:02
PROVIDERS: PCP Internal Medicine; Visit Provider Internal Medicine
DX: Z79.01 Long term (current) use of anticoagulants (principal)

== ENCOUNTER → 2023-06-09 08:02 | Outpatient (BNVA) | payer MEDICARE, SELFPAY | PROVIDERS: PCP Internal Medicine; Visit Provider Internal Medicine | DX: I48.0 Paroxysmal atrial fibrillation (principal); Z79.01 Long term (current) use of anticoagulants; Z51.81 Encounter for therapeutic drug level monitoring | CPT/HCPCS: 85610; 99211 ==

== ENCOUNTER 2023-06-16 08:57 | Outpatient (AMB) | payer MEDICARE, SELFPAY ==
[2023-06-16 09:24] VITALS: BP 114/84; PULSE 56; BMI 31.4
--- NOTE | 2023-06-16 09:24 | MHC.OFFVIS ---
Intake Vital Signs 06/16/23 09:24 Height 5 ft 8 in Weight 206 lb 12.697 oz BMI 31.4 BP 114/84 Blood Pressure Location Rt brachial Position Sitting Pulse 56 Pulse Source Monitor Intake Visit Reasons: [facility]/05-22/AFIB with rvr/Holter f/u Allergies oxycodone [From PERCODAN] Allergy (Intermediate, Verified 06/16/23 09:27) HIVES rosuvastatin [From Crestor] Adverse Reaction (Intermediate, Verified 06/16/23 09:27) body aches Hydrocodone-Acetaminophen Adverse Reaction (Unknown, Uncoded 06/16/23 09:27) nausea and vomiting Medication List - Last Reconciled 06/16/23 by AFVIOLA Goldman acetaminophen (Acetaminophen Extra Strength) 1,000 mg PO DAILY PRN albuterol sulfate 90 mcg/actuation 2 inhalations inhalation Q6-8H PRN alirocumab 150 mg subcut Q14D amoxicillin 2,000 mg (4 x 500 mg) PO .before dental visit PRN ascorbic acid (vitamin C) 1,000 mg PO DAILY cholecalciferol (vitamin D3) (Vitamin D3) 50 mcg PO DAILY docusate sodium 100 mg PO BEDTIME flecainide 50 mg PO Q12H fluoxetine 20 mg PO DAILY hydroxyzine HCl 25 mg PO DAILY PRN lamotrigine 250 mg PO BEDTIME latanoprost 0.005% 1 drp ophthalmic (eye) BEDTIME metoprolol tartrate 25 mg PO BID wejhygugnqpv-epkytjge-ezryhb (Multivitamin 50 Plus tablet) 1 tab PO DAILY polyethylene glycol 3350 (Miralax) 17 grams PO DAILY trazodone 100 - 200 mg PO BEDTIME warfarin 5 mg See Protocol PO SUTUTHSA@1800 warfarin 7.5 mg See Protocol PO MOWEFR@1800 HPI [facility] [place] [facility]/05-22/AFIB with rvr/Holter f/u HPI Details Rowena is a 68-year-old female with past medical history of hypertension, mild obesity, atrial fibrillation status post ablation 2013, recurrent paroxysmal atrial fibrillation who was recently admitted to [facility] for AFib RVR. She did convert on her own with rate slowing meds. She was then started on flecainide. Outpatient Holter monitor was done and she now presents for follow-up. Today she reports that since her hospital discharge he has notice brief episodes of atrial fibrillation. She recalls the 1 longer episode that was captured on the Holter monitor. She has had none that long since that time. No other concerning symptoms. She denies chest discomfort, shortness of breath, lightheadedness, presyncope, syncope, PND, orthopnea or edema. She does report some fatigue and attributes it to the medications and lower heart rate. She has been checking her vital signs and notices her heart rate is in the 50s to 60s. 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, 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 Are you a primary customer care associate to a significant other at home: Yes Do you presently have visiting nurse or other home services: No Alcohol intake: current Alcohol intake frequency: holidays/special occasions only Patient Tobacco Use Status: Never used Tobacco e-Cigarette/Vaping Use: Never Used service: No Current occupational status: retired 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 Current occupational exposures/hazards: No Cognitive needs: No Hearing needs: No Vision needs: Yes Review of Systems Const All systems reviewed & are unremarkable except as noted in HPI and below Reports fatigue ENT Denies dizziness Card Denies chest pain, Denies chest pain at rest, Denies chest pain with activity, Denies rapid heart rate, Denies pedal edema, Denies edema, Denies leg edema, Denies lightheadedness, Reports palpitations, Denies dyspnea, Denies dyspnea on exertion and Denies orthopnea Resp Denies cough, Denies dyspnea and Denies dyspnea on exertion GI Denies hematochezia and Denies change in stool character Musc Denies abnormal gait, Denies limited range of motion, Denies muscle cramps, Denies muscle weakness, Denies numbness, Denies radiating pain into limb, Denies stiffness and Denies tingling Neuro Denies abnormal gait, Denies dizziness, Denies numbness and Denies tingling Endo Reports fatigue and Reports palpitations Physical Exam Vital Signs: Last Vital Signs Pulse 56 06/16/23 09:24 BP 114/84 06/16/23 09:24 BMI result Body Mass Index 31.4 Const General: cooperative, healthy appearing, comfortable and no acute distress Orientation/consciousness: patient oriented x3 Neck Neck: Yes normal visual inspection and Yes no JVD Resp Effort & Inspection: normal respiratory effort Auscultation: clear to auscultation bilaterally, no crackles, no rales, no rhonchi and no wheezes Cardio Jugular venous distension: no JVD Rate: regular rate Rhythm: regular rhythm Heart sounds: S1 normal heart sound present, S2 normal heart sound present, no murmurs and no rubs Neuro General: patient oriented x3 Extrem General: Yes normal to inspection and No no pedal edema Psych Appearance: grossly normal Mental Status: mental status grossly normal Speech and movement: Normal speech and movement present Office Procedures EKG Details: Today, read by me, sinus bradycardia, right axis deviation, septal Q-wave, rate 56, QTC 416 milliseconds [id number], Complete Assessment & Plan Assessment & Plan (1) PAF (paroxysmal atrial fibrillation): Code(s): I48.0 - Paroxysmal atrial fibrillation Plan: History of paroxysmal atrial fibrillation. AFib ablation 2013. Recurrent atrial fibrillation with [facility] admission 05/22/2023 with AFib RVR. She did convert on her own. An echocardiogram showed EF 69 %, no valve abnormalities, normal atrium sizes. She was started on flecainide 50 mg b.i.d. and metoprolol tartrate 25 mg b.i.d. for rhythm and rate control. Holter monitor done on 05/30/2023 for 3 days shows sinus rhythm with average heart rate 63, 42% of the time heart rate less than 60, 1 episode of atrial fibrillation lasting 58 minutes. An EKG done today shows sinus bradycardia, septal Q-wave which is not new, rate 56, QTC 416 milliseconds. Today she reports that she did feel the heart palpitations when she wore the heart monitor. Since then she is only notice brief episodes of heart palpitations lasting seconds. She does report some mild fatigue. I ambulated her in the [place] with a sat monitor: Starting heart rate 57, ambulated full length of our main hallway and back, heart rate katia to 63. Instructed to continue to monitor heart rate periodically at home and call if heart rate starts to dip lower than 50. Continue current flecainide and metoprolol. Continue Coumadin for anticoagulation, INR goal 2-3. Follows with [facility] anticoagulation Clinic. No bleeding issues reported. She has an appointment with on 07/03/2023 to discuss repeat AFib ablation. Cardiology follow-up this office 3 months, sooner if needed (2) On anticoagulant therapy: Comment: Started on Coumadin 04/2022- Code(s): Z79.01 - halfway (current) use of anticoagulants Plan: On Coumadin (3) Atherosclerotic cardiovascular disease: Code(s): I25.10 - Atherosclerotic heart disease of [place] coronary artery without angina pectoris Plan: Known history of nonobstructive coronary artery disease. According to Dr. Manley's last note she had a CTA of the coronary arteries previously which showed the nonobstructive disease in the LAD, diagonal and RCA. A myocardial perfusion imaging study from 2019 showed normal perfusion. At this time she denies any chest discomfort at rest or with activity. No concerning shortness of breath. She is not on aspirin as she is on Coumadin. She has not on statin therapy due to intolerance. She is on Praluent. Labs done 05/18/2023 showed LDL 133. Reviewed with her she has been compliant with medication. Will recheck fasting lipids prior to her next visit. (4) Hyperlipidemia: Comment: Atorvastatin was stopped by Cardiology, intolerant to Crestor(myalgia), on Praluent since 08/16 Code(s): E78.5 - Hyperlipidemia, unspecified Plan: As above (5) Hospital discharge follow-up: Code(s): Z09 - Encounter for follow-up examination after completed treatment for conditions other than malignant neoplasm Plan: As above Plan Time spent on chart review, documentation, interview and assessment Orders: Orders Lipid Panel 2 Months E78.5 - Hyperlipidemia, unspecified Comprehensive Met. Panel 2 Months I25.10 - Atherosclerotic heart disease of [place] coronary artery without angina pectoris Coding Level of Care Code Est Pt Level 4 (39797) Diagnoses PAF (paroxysmal atrial fibrillation) I48.0 On anticoagulant therapy Z79.01 Atherosclerotic cardiovascular disease I25.10 Hyperlipidemia E78.5 Hospital discharge follow-up Z09 CPT Codes EKG - CPT: 32681-[id number], Complete ([id number]) Time Spent (min) 28
== END 2023-06-16 10:02 | disposition home or self-care (01) ==
PROVIDERS: PCP Internal Medicine; Visit Provider Nurse Practitioner Family
DX: I48.0 Paroxysmal atrial fibrillation (principal); Z79.01 Long term (current) use of anticoagulants; I25.10 Atherosclerotic heart disease of native coronary artery without angina pectoris; E78.5 Hyperlipidemia, unspecified; Z09 Encounter for follow-up examination after completed treatment for conditions other than malignant neoplasm
CPT/HCPCS: 93010; 99214

== ENCOUNTER → 2023-06-16 08:57 | Outpatient (BNVA) | payer MEDICARE, SELFPAY | PROVIDERS: PCP Internal Medicine; Visit Provider Nurse Practitioner Family | DX: I10 Essential (primary) hypertension (principal); E66.9 Obesity, unspecified; I48.0 Paroxysmal atrial fibrillation; I25.10 Atherosclerotic heart disease of native coronary artery without angina pectoris; E78.5 Hyperlipidemia, unspecified; Z09 Encounter for follow-up examination after completed treatment for conditions other than malignant neoplasm; Z79.01 Long term (current) use of anticoagulants; Z79.899 Other long term (current) drug therapy | CPT/HCPCS: 93005; 99212 ==

== ENCOUNTER 2023-07-07 08:02 | Outpatient (AMB) | payer MEDICARE, SELFPAY ==
--- NOTE | 2023-07-07 08:14 | MHC.OFFVISCO ---
Intake Intake Visit Reasons: Anticoagulation Allergies oxycodone [From PERCODAN] Allergy (Intermediate, Verified 07/07/23 08:04) HIVES rosuvastatin [From Crestor] Adverse Reaction (Intermediate, Verified 07/07/23 08:04) body aches Hydrocodone-Acetaminophen Adverse Reaction (Unknown, Uncoded 07/07/23 08:04) nausea and vomiting Medication List - Last Reconciled 07/07/23 by Komal Thomas RN acetaminophen (Acetaminophen Extra Strength) 1,000 mg PO DAILY PRN albuterol sulfate 90 mcg/actuation 2 inhalations inhalation Q6-8H PRN alirocumab 150 mg subcut Q14D amoxicillin 2,000 mg (4 x 500 mg) PO .before dental visit PRN ascorbic acid (vitamin C) 1,000 mg PO DAILY cholecalciferol (vitamin D3) (Vitamin D3) 50 mcg PO DAILY docusate sodium 100 mg PO BEDTIME flecainide 50 mg PO Q12H fluoxetine 20 mg PO DAILY hydroxyzine HCl 25 mg PO DAILY PRN lamotrigine 250 mg PO BEDTIME latanoprost 0.005% 1 drp ophthalmic (eye) BEDTIME metoprolol tartrate 25 mg PO BID hygezanevczk-wpyxxuro-efcywv (Multivitamin 50 Plus tablet) 1 tab PO DAILY polyethylene glycol 3350 (Miralax) 17 grams PO DAILY trazodone 100 - 200 mg PO BEDTIME warfarin 5 mg See Protocol PO SUTUTHSA@1800 warfarin 7.5 mg See Protocol PO MOWEFR@1800 Nursing Note INR 3.6-?? out of therapeutic range Medications and supplements reviewed Patient status: states having afib episodes Medications or supplements: flecainide per cardiology- no interaction per micromedex Diet: appetite less Denies any signs and symptoms of bleeding or clotting or unusual bruising Bleeding, bruising, clotting discussed Nutritional guidance given: eat greens Dose: 5mg today then cont reg 7.5mg x 3, 5mg x 4 F/U INR Date : 2 weeks?? Patient verbalizing understanding of instructions given. pt states missed dose and self dosed warfarin during the week- enc to call acs with missed doses for dosing management Anti-Coag Initial Assessment Social Hx Patient Tobacco Use Status: Never used Tobacco alcohol intake: current Alcohol intake frequency: holidays/special occasions only Cardiovascular Hx: Arrhythmias (afib) and Varicose Veins Lung Disease HX: Asthma Musculoskeletal Hx: Arthritis Blood Disorder Hx: Hyperlipidemia GI Hx: Diverticulosis and Hemorrhoids Neurological Hx: Serious Head Injury Cancer HX: No Psych. Illness/Depression: Yes Coding Level of Care Code Est Patient Level 1 Diagnoses Current use of anticoagulant therapy Z79.01 Assessment & Plan Assessment & Plan (1) Current use of anticoagulant therapy: Code(s): Z79.01 - care home (current) use of anticoagulants Category: Medical
[2023-07-07 08:15] LABS: Prothrombin Time Whole Bld POC 42.7 sec (11.1-13.5); ~PT, ~INR - Anti Coag Clinic 3.6 (0.9-1.1)
== END 2023-07-07 08:24 | disposition home or self-care (01) ==
LOC: HO.ACS 08:02
PROVIDERS: PCP Internal Medicine; Visit Provider Internal Medicine
DX: Z79.01 Long term (current) use of anticoagulants (principal)

== ENCOUNTER → 2023-07-07 08:02 | Outpatient (BNVA) | payer MEDICARE, SELFPAY | PROVIDERS: PCP Internal Medicine; Visit Provider Internal Medicine | DX: I48.0 Paroxysmal atrial fibrillation (principal); Z79.01 Long term (current) use of anticoagulants; Z51.81 Encounter for therapeutic drug level monitoring | CPT/HCPCS: 85610; 99211 ==

== ENCOUNTER 2023-07-21 09:26 | Outpatient (AMB) | payer MEDICARE, SELFPAY ==
[2023-07-21 09:41] LABS: Prothrombin Time Whole Bld POC 25.6 sec (11.1-13.5); ~PT, ~INR - Anti Coag Clinic 2.1 (0.9-1.1)
--- NOTE | 2023-07-21 09:42 | MHC.OFFVISCO ---
Intake Intake Visit Reasons: Anticoagulation Allergies oxycodone [From PERCODAN] Allergy (Intermediate, Verified 07/21/23 09:27) HIVES rosuvastatin [From Crestor] Adverse Reaction (Intermediate, Verified 07/21/23 09:27) body aches Hydrocodone-Acetaminophen Adverse Reaction (Unknown, Uncoded 07/21/23 09:27) nausea and vomiting Medication List - Last Reconciled 07/21/23 by Ayaka Shearer RN acetaminophen (Acetaminophen Extra Strength) 1,000 mg PO DAILY PRN albuterol sulfate 90 mcg/actuation 2 inhalations inhalation Q6-8H PRN alirocumab 150 mg subcut Q14D amoxicillin 2,000 mg (4 x 500 mg) PO .before dental visit PRN ascorbic acid (vitamin C) 1,000 mg PO DAILY cholecalciferol (vitamin D3) (Vitamin D3) 50 mcg PO DAILY docusate sodium 100 mg PO BEDTIME flecainide 50 mg PO Q12H fluoxetine 20 mg PO DAILY hydroxyzine HCl 25 mg PO DAILY PRN lamotrigine 250 mg PO BEDTIME latanoprost 0.005% 1 drp ophthalmic (eye) BEDTIME metoprolol tartrate 25 mg PO BID zyzvqxxgxmlv-cthernfh-huhdyz (Multivitamin 50 Plus tablet) 1 tab PO DAILY polyethylene glycol 3350 (Miralax) 17 grams PO DAILY trazodone 100 - 200 mg PO BEDTIME warfarin 5 mg See Protocol PO SUTUTHSA@1800 warfarin 7.5 mg See Protocol PO MOWEFR@1800 Nursing Note INR: 2.1 in therapeutic range of 2-3 Medications and supplements reviewed: no changes No changes in health, diet, medications, or supplements, Pt to have colonoscopy soon. has pre-procedure visit next week and will call [facility] when appt made Denies any signs and symptoms of bleeding or bruising or clotting. Bleeding, bruising, clotting discussed Nutritional guidance given Dose: 7.5mg X 3days and 5mg X 4 days F/U INR: 1 month Patient verbalizes understanding of instructions given Anti-Coag Initial Assessment Social Hx Patient Tobacco Use Status: Never used Tobacco alcohol intake: current Alcohol intake frequency: holidays/special occasions only Cardiovascular Hx: Arrhythmias (afib) and Varicose Veins Lung Disease HX: Asthma Musculoskeletal Hx: Arthritis Blood Disorder Hx: Hyperlipidemia GI Hx: Diverticulosis and Hemorrhoids Neurological Hx: Serious Head Injury Cancer HX: No Psych. Illness/Depression: Yes Coding Level of Care Code Est Patient Level 1 Diagnoses Current use of anticoagulant therapy Z79.01 Assessment & Plan Assessment & Plan (1) Current use of anticoagulant therapy: Code(s): Z79.01 - [facility] (current) use of anticoagulants Category: Medical
== END 2023-07-21 09:55 | disposition home or self-care (01) ==
LOC: HO.ACS 09:26
PROVIDERS: PCP Internal Medicine; Visit Provider Internal Medicine
DX: Z79.01 Long term (current) use of anticoagulants (principal)

== ENCOUNTER → 2023-07-21 09:26 | Outpatient (BNVA) | payer MEDICARE, SELFPAY | PROVIDERS: PCP Internal Medicine; Visit Provider Internal Medicine | DX: I48.0 Paroxysmal atrial fibrillation (principal); Z51.81 Encounter for therapeutic drug level monitoring; Z79.01 Long term (current) use of anticoagulants | CPT/HCPCS: 85610; 99211 ==

== ENCOUNTER → 2023-08-03 10:47 | Outpatient (BNVA) | payer MEDICARE, SELFPAY | PROVIDERS: PCP Internal Medicine; Visit Provider Internal Medicine | DX: I48.0 Paroxysmal atrial fibrillation (principal); Z51.81 Encounter for therapeutic drug level monitoring; Z79.01 Long term (current) use of anticoagulants | CPT/HCPCS: 99212; 85610 ==

== ENCOUNTER 2023-09-12 13:45 | Outpatient (AMB) | payer MEDICARE, SELFPAY ==
--- NOTE | 2023-09-12 13:51 | MHC.OFFVIS ---
Vital Signs 09/12/23 13:52 Height 5 ft 8 in Weight 202 lb 13.204 oz BMI 30.8 BP 122/70 Blood Pressure Location Lt brachial Position Sitting Pulse 62 Pulse Source Monitor Intake Visit Reasons: 3mth f/up Allergies oxycodone [From PERCODAN] Allergy (Intermediate, Verified 08/03/23 10:48) HIVES rosuvastatin [From Crestor] Adverse Reaction (Intermediate, Verified 08/03/23 10:48) body aches Hydrocodone-Acetaminophen Adverse Reaction (Unknown, Uncoded 08/03/23 10:48) nausea and vomiting Medication List - Last Reconciled 09/12/23 by Vladimir Manley MD acetaminophen (Acetaminophen Extra Strength) 1,000 mg PO DAILY PRN albuterol sulfate 90 mcg/actuation 2 inhalations inhalation Q6-8H PRN amoxicillin 2,000 mg (4 x 500 mg) PO .before dental visit PRN apixaban (Eliquis) 5 mg PO BID ascorbic acid (vitamin C) 1,000 mg PO DAILY cholecalciferol (vitamin D3) (Vitamin D3) 50 mcg PO DAILY docusate sodium 100 mg PO BEDTIME evolocumab (Repatha SureClick) 140 mg subcut Q2W 90 days flecainide 50 mg PO Q12H fluoxetine 20 mg PO DAILY hydroxyzine HCl 25 mg PO DAILY PRN lamotrigine 250 mg PO BEDTIME latanoprost 0.005% 1 drp ophthalmic (eye) BEDTIME metoprolol tartrate 25 mg PO BID cejafxalkbeq-voyyjpow-cwxofy (Multivitamin 50 Plus tablet) 1 tab PO DAILY polyethylene glycol 3350 (Miralax) 17 grams PO DAILY trazodone 100 - 200 mg PO BEDTIME HPI Comments Details: Rowena returns for follow-up regarding atrial fibrillation. To recall, she had atrial fibrillation ablation 2013. A subsequently, was on short-term flecainide for palpitations thought to be from atrial fibrillation but later stopped. She was doing well for many years but more recently again having atrial fibrillation. Started beta-blockers with some improvement. Then flecainide was started. As she continued get palpitations, she saw EP and plans to go for ablation in the next couple of weeks. She states her heart rate goes down quite low and hence she has not taking the flecainide anymore just beta-blockers. Otherwise, it seems that she was admitted to [facility] for chest pain underwent stress testing which was unremarkable and then she was discharged home. She is known to have nonobstructive CAD on a coronary CTA. She also has significant dyslipidemia. She was on pravastatin but the LFTs were apparently abnormal and that led to holding it but the LDL went up really high. Currently taking Repatha. 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, 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, 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 Are you a 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 healthcare corporate account director to a significant other at home: Yes Do you presently have visiting nurse or other home services: No Alcohol intake: current Alcohol intake frequency: holidays/special occasions only Patient Tobacco Use Status: Never used Tobacco e-Cigarette/Vaping Use: Never Used service: No Current occupational status: retired 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 Current occupational exposures/hazards: No Cognitive needs: No Hearing needs: No Vision needs: Yes Review of Systems Const Denies weakness ENT Denies dizziness Card Denies chest pain, Denies chest pain with activity, Denies syncope, Denies rapid heart rate, Denies pedal edema, Denies edema, Denies leg edema, Denies lightheadedness, Denies palpitations, Denies dyspnea, Denies dyspnea on exertion and Denies orthopnea Resp Denies cough, Denies dyspnea and Denies dyspnea on exertion GI Denies hematochezia and Denies change in stool character Musc Denies abnormal gait, Denies muscle cramps, Denies muscle weakness, Denies numbness, Denies radiating pain into limb and Denies tingling Neuro Denies abnormal gait, Denies dizziness, Denies syncope, Denies numbness, Denies tingling and Denies weakness Endo Denies palpitations Physical Exam Vital Signs: Last Vital Signs Pulse 62 09/12/23 13:52 BP 122/70 09/12/23 13:52 BMI result Body Mass Index 30.8 Const General: comfortable and no acute distress Orientation/consciousness: patient oriented x3 HEENT Other: Unremarkable Head: Yes normal to inspection Neck Neck: Yes normal visual inspection Chest Chest palpation & inspection: normal inspection of the chest Resp Auscultation: clear to auscultation bilaterally Cardio Palpation: normal PMI Heart sounds: S1 normal heart sound present, S2 normal heart sound present, no gallops, no murmurs and no rubs GI Palpation (GI): Soft to palpation Back/Spine/Pelvis Other: unremarkable Skin General skin exam: no rashes or lesions noted Neuro General: patient oriented x3 Extrem General: Yes normal to inspection Psych Mental Status: mental status grossly normal Office Procedures EKG Details: EKG with sinus rhythm at 62/Min; cannot exclude old septal infarct; no significant ST-T changes; rightward axis; [place]. [id number], Complete Assessment & Plan Assessment & Plan (1) PAF (paroxysmal atrial fibrillation): Code(s): I48.0 - Paroxysmal atrial fibrillation Category: Medical Plan: History of ablation around 2013. Currently on metoprolol only. Not taking flecainide as she thinks that her heart rate goes down too low. Awaiting ablation. Otherwise, continue anticoagulation. (2) Atherosclerotic cardiovascular disease: Code(s): I25.10 - Atherosclerotic heart disease of [place] coronary artery without angina pectoris Category: Medical Plan: Previously, underwent coronary CTA. She has nonobstructive disease in the LAD, diagonal, RCA. Myocardial perfusion imaging study from 2019 showed normal perfusion. Echocardiogram from [facility] 07/2023 with LVEF of 55-60%, no wall motion abnormalities. Otherwise unremarkable. Repeat perfusion imaging from [facility] 07/2023 is unremarkable. Mainly management of risk factors. (3) Other and unspecified hyperlipidemia: Code(s): E78.5 - Hyperlipidemia, unspecified Category: Medical Plan: Statin intolerant. Also had some LFT issues. Currently on Repatha but lipids are still high. Most recently, LDL 133 mg/dL. Add Zetia. Orders: Orders ECG 3 day holter monitor 3 Months I48.0 - Paroxysmal atrial fibrillation Medications: New ezetimibe (Zetia) 10 mg PO DAILY 90 tabs 3RF Coding Level of Care Code Est Pt Level 4 (90826) Diagnoses PAF (paroxysmal atrial fibrillation) I48.0 Atherosclerotic cardiovascular disease I25.10 Other and unspecified hyperlipidemia E78.5 CPT Codes EKG - CPT: 85978-[id number], Complete ([id number])
[2023-09-12 13:52] VITALS: BP 122/70; PULSE 62; BMI 30.8
== END 2023-09-12 14:12 | disposition home or self-care (01) ==
PROVIDERS: PCP Internal Medicine; Visit Provider Internal Medicine
DX: I48.0 Paroxysmal atrial fibrillation (principal); I25.10 Atherosclerotic heart disease of native coronary artery without angina pectoris; E78.5 Hyperlipidemia, unspecified
CPT/HCPCS: 93010; 99214

== ENCOUNTER → 2023-09-12 13:45 | Outpatient (BNVA) | payer MEDICARE, SELFPAY | PROVIDERS: PCP Internal Medicine; Visit Provider Internal Medicine | DX: I48.0 Paroxysmal atrial fibrillation (principal); I25.10 Atherosclerotic heart disease of native coronary artery without angina pectoris; E78.5 Hyperlipidemia, unspecified; Z79.01 Long term (current) use of anticoagulants; Z79.899 Other long term (current) drug therapy | CPT/HCPCS: 93005; 99212 ==

== ENCOUNTER 2023-11-01 14:13 | Outpatient (AMB) | payer MEDICARE, SELFPAY ==
--- NOTE | 2023-11-01 14:30 | MHC.PC.OV ---
Vital Signs 11/01/23 14:31 Height 5 ft 8 in Weight 206 lb BMI 31.3 BP 134/78 Blood Pressure Location Lt brachial Position Sitting Pulse 64 Pulse Source Pulse Oximeter Pulse Oximetry (%) 95 Oxygen Delivery Method Room Air Intake Visit Reasons: Check growth Intake Note: Pt is here today for a sick visit. Pt states that she has a growth on her chest that gets irritated with clothes. Allergies oxycodone [From PERCODAN] Allergy (Intermediate, Verified 11/01/23 14:31) HIVES rosuvastatin [From Crestor] Adverse Reaction (Intermediate, Verified 11/01/23 14:31) body aches Hydrocodone-Acetaminophen Adverse Reaction (Unknown, Uncoded 11/01/23 14:31) nausea and vomiting Medication List - Last Reconciled 11/01/23 by Bonny Bueno MD acetaminophen (Acetaminophen Extra Strength) 1,000 mg PO DAILY PRN albuterol sulfate 90 mcg/actuation 2 inhalations inhalation Q6-8H PRN amoxicillin 2,000 mg (4 x 500 mg) PO .before dental visit PRN apixaban (Eliquis) 5 mg PO BID ascorbic acid (vitamin C) 1,000 mg PO DAILY cholecalciferol (vitamin D3) (Vitamin D3) 50 mcg PO DAILY docusate sodium 100 mg PO BEDTIME evolocumab (Repatha SureClick) 140 mg subcut Q2W 90 days ezetimibe (Zetia) 10 mg PO DAILY flecainide 50 mg PO Q12H fluoxetine 20 mg PO DAILY hydroxyzine HCl 25 mg PO DAILY PRN lamotrigine 250 mg PO BEDTIME latanoprost 0.005% 1 drp ophthalmic (eye) BEDTIME metoprolol tartrate 25 mg PO BID [id number]-iinxvlli-beaysb (Multivitamin 50 Plus tablet) 1 tab PO DAILY polyethylene glycol 3350 (Miralax) 17 grams PO DAILY trazodone 100 - 200 mg PO BEDTIME Tobacco use date assessed: 11/01/23 Fall risk assessment: No Falls in past year Last assessed Fall Risk: 11/01/23 Dental Screening Dental Screen Date: 05/17/23 HPI Check growth HPI Details Pt c/o upper chest skin growth and gets irritated. Chronic depression stable on current medications. Hyperlipidemia controlled on Repatha and Zetia patient will return for fasting blood work to check on lipid profile. For paroxysmal AFib patient underwent catheter ablation and denies any recurrent palpitations. She will follow-up with cardiology next month. Patient remains on Eliquis and metoprolol [facility] Medical History (Updated 11/01/23 @ 15:20 by Bonny Bueno MD) Hypertension Asthma Anxiety Chronic low back pain On anticoagulant therapy On beta francisco at home PAF (paroxysmal atrial fibrillation) Surgical History H/O cardiac radiofrequency ablation H/O colonoscopy History of evacuation of hematoma History of bowel resection History of knee surgery Family History Father Myocardial infarction CVD (cardiovascular disease) Mother Mental health disorder Sister Mental health disorder Social History Household Members: Spouse, Family and Children 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:: , 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, 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, 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 Are you a 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 director career services to a significant other at home: Yes Do you presently have visiting nurse or other home services: No Alcohol intake: current Alcohol intake frequency: holidays/special occasions only Patient Tobacco Use Status: Never used Tobacco e-Cigarette/Vaping Use: Never Used service: No Current occupational status: retired 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 1. Little interest or pleasure in doing things: not at all 2. Feeling down, depressed, or hopeless: more than half the days 3. Trouble falling or staying asleep, or sleeping too much: several days 4. Feeling tired or having little energy: several days 5. Poor appetite or overeating: several days 6. Feeling bad about yourself - or that you are a failure or have let yourself or your family down: several days 7. Trouble concentrating on things, such as reading the newspaper or watching television: more than half the days 8. Moving or speaking so slowly that other people could have noticed. Or the opposite - being so fidgety or restless that you have been moving around a lot more than usual: more than half the days 9. Thoughts that you would be better off or of hurting yourself in some way: more than half the days Total score: 12 Depression Screening Interpretation: Positive (Patient is established with a psychiatrist and therapist) Depression Screening Follow-up: Existing condition and In treatment Depression Screening Done: Yes Source: Developed by Drs. Trip Miller, Susan Hewitt, Raman Gibson and colleagues, with an educational celio from [employer] Thrive Questionnaire Date Thrive assessed: 11/01/23 I am a: Patient What is your living situation today?: I have a steady place to live Within the past 12 months, did the food you bought not last and you didn't have the money to get more?: Never true Within the past 12 months, did you worry whether your food would run out before you got money to buy more?: Never true Do you have trouble paying for medicines?: No Do you have trouble getting transportation to medical appointments?: No Do you have trouble paying your heating and electricity bill?: No Do you have trouble taking care of your child, family member or friend?: Yes Do you have trouble with day-to-day activities such as bathing, preparing meals, shopping, managing finances, etc.?: No Are you currently unemployed and looking for a job?: No Are you interested in more education?: No Please select the resources that you would like help with: Housing/Penitentiary Currently or been in a relationship where the following occur: No concerns reported THRIVE Score: 0 AUDIT C Alcohol Use Questionnaire (AUDIT-C) 1. How often do you have a drink containing alcohol?: 2-4 times a month 2. How many drinks containing alcohol do you have on a typical day when you are drinking?: 1 or 2 3. How often do you have six or more drinks on one occasion?: Never Total Score: 2 MERLIN-7 AMB Questionnaire MERLIN-7 Date MERLIN - 7 assessed: 11/01/23 Feeling nervous, anxious, or on edge: 3 = Nearly every day Not being able to stop or control worryin = Nearly every day Worrying too much about different things: 3 = Nearly every day Trouble relaxin = Nearly every day Being so restless that it is hard to sit still: 2 = More than half the days Becoming easily annoyed or irritable: 2 = More than half the days Feeling afraid as if something awful might happen: 1 = Several days Total MERLIN-7 score (0-4 normal; 5-9 mild; 10-14 moderate; 15-21 severe): 17 Source: Developed by Drs. Trip Miller, Susan Hewitt, Raman Gibson and colleagues, with an educational celio from [employer] Review of Systems Const All systems reviewed & are unremarkable except as noted in HPI and below Eyes Reports no additional complaints ENT Reports no additional complaints Card Reports no additional complaints Resp Reports no additional complaints GI Reports no additional complaints Physical exam (Primary Care) Vital Signs: Last Vital Signs Pulse 64 11/01/23 14:31 BP 134/78 11/01/23 14:31 Pulse Ox 95 11/01/23 14:31 Oxygen Delivery Method Room Air 11/01/23 14:31 BMI result Body Mass Index 31.3 Tobacco/Smoking Status: Tobacco use Status Tobacco use date assessed 11/01/23 11/01/23 14:40 Patient Tobacco Use Status Never used Tobacco 11/01/23 14:40 e-Cigarette/Vaping Use Never Used 11/01/23 14:40 PHQ-9: PHQ-9 Score PHQ-9: Total score 12 11/01/23 14:44 Depression Screening Interpretation: Positive (Patient is established with a psychiatrist and therapist) Depression Screening Follow-up: Existing condition and In treatment Thrive Assessment: Date of Thrive Assessment Date Thrive assessed 11/01/23 11/01/23 14:40 Currently or been in a relationship where the following occur: No concerns reported Const General: comfortable HENMT Head: Yes normal to inspection Mouth: Normal oral and palatal mucosa present Throat: Yes posterior oropharynx normal Eyes General: appearance normal, both eyes and all related structures Neck Neck: Yes supple Resp Effort & Inspection: normal respiratory effort Auscultation: clear to auscultation bilaterally Cardio Rhythm: regular rhythm Heart sounds: S1 normal heart sound present and S2 normal heart sound present GI Inspection: Yes normal to inspection Palpation (GI): Soft to palpation Percussion: Yes normal to percussion Auscultation: normal bowel sounds Skin Other: 1 cm skin tag with rough surface Assessment and Plan Assessment & Plan (1) PAF (paroxysmal atrial fibrillation): Comment: s/p catheter ablation 2023 Code(s): I48.0 - Paroxysmal atrial fibrillation Plan: Follow-up with the Cardiology (2) Annual physical exam: Code(s): Z00.00 - Encounter for general adult medical examination without abnormal findings Plan: Patient will return for physical (3) Hyperlipidemia: Comment: Atorvastatin was stopped by Cardiology, intolerant to Crestor(myalgia), on Praluent since 08/16 Code(s): E78.5 - Hyperlipidemia, unspecified Plan: Continue current medications check lipid profile (4) Anxiety and depression: Comment: f/u with psychiatrist, 2 suicidal attempts 2013, Code(s): F41.9 - Anxiety disorder, unspecified; F32.A - Depression, unspecified Plan: Continue current medications follow-up with psychiatry Orders: Orders Lipid Panel Today E78.5 - Hyperlipidemia, unspecified, I48.0 - Paroxysmal atrial fibrillation, Z00.00 - Encounter for general adult medical examination without abnormal findings Complete Blood Count Auto Diff Today E78.5 - Hyperlipidemia, unspecified, I48.0 - Paroxysmal atrial fibrillation, Z00.00 - Encounter for general adult medical examination without abnormal findings TSH reflex Free T4 Today E78.5 - Hyperlipidemia, unspecified, I48.0 - Paroxysmal atrial fibrillation, Z00.00 - Encounter for general adult medical examination without abnormal findings Comprehensive Leivasy. Panel Fast Today E78.5 - Hyperlipidemia, unspecified, I48.0 - Paroxysmal atrial fibrillation, Z00.00 - Encounter for general adult medical examination without abnormal findings Coding Level of Care Code Est Pt Level 4 (20985) Diagnoses PAF (paroxysmal atrial fibrillation) I48.0 Annual physical exam Z00.00 Hyperlipidemia E78.5 Anxiety and depression F41.9; F32.A
[2023-11-01 14:31] VITALS: BP 134/78; PULSE 64; O2SAT 95; BMI 31.3
== END 2023-11-01 15:20 | disposition home or self-care (01) ==
PROVIDERS: PCP Internal Medicine; Visit Provider Internal Medicine
DX: I48.0 Paroxysmal atrial fibrillation (principal); Z00.00 Encounter for general adult medical examination without abnormal findings; E78.5 Hyperlipidemia, unspecified; F41.9 Anxiety disorder, unspecified; F32.A Depression, unspecified
CPT/HCPCS: 99214

== ENCOUNTER 2023-11-07 07:52 | Outpatient (REF) | payer MEDICARE, SELFPAY ==
[2023-11-07 10:20] LABS: MANUAL DIFF FLAG NO
[2023-11-07 10:38] LABS: Basophils Percent Auto 0.6 % (0-2); Eosinophils Absolute Auto 0.3 X10*3/uL (0.0-0.4); Eosinophils Percent Auto 7.1 % (0-4); Hematocrit 42.6 % (37.0-47.0); Hemoglobin 14.3 g/dl (12.0-16.0); Imm Gran Abs Auto 0.01 X10*3/uL (0.00-0.03); Imm Gran Pct Auto 0.2 % (0.0-0.4); Lymphocytes Absolute Auto 1.3 X10*3/uL (1.2-4.9); Lymphocytes Percent Auto 26.3 % (20-40); Mean Corpuscular HGB Conc 33.6 g/dl (31.0-35.0); Mean Corpuscular Hemoglobin 31.7 pg (27.0-33.0); Mean Corpuscular Volume 94.5 fL (80.0-98.0); Mean Platelet Volume 10.1 fL (9.4-12.3); Monocytes Absolute Auto 0.5 X10*3/uL (0.1-1.2); Monocytes Percent Auto 9.3 % (2-11); Neutrophils Absolute Auto 2.7 x10*3/uL (2.0-8.3); Neutrophils Percent Auto 56.5 % (45-73); Platelet Count 191 X10*3/uL (160-400); Red Blood Count 4.51 X10*6/uL (4.20-5.50); Red Cell Distribution Width 12.7 % (11.0-16.0); White Blood Count 4.8 X10*3/uL (4.8-10.8)
[2023-11-07 11:01] LABS: Alanine Aminotransferase 24 U/L (0-31); Albumin Level 4.4 g/dL (3.5-5.0); Alkaline Phosphatase 83 U/L (39-117); Anion Gap 9 (12-20); Aspartate Amino Transferase 22 U/L (5-31); Bilirubin Total 0.5 mg/dL (0.0-1.0); Blood Urea Nitrogen 12 mg/dL (9-16); Carbon Dioxide 33 mmol/L (22-29); Chloride 103 mmol/L (96-108); Cholesterol 169 mg/dL (<200); Estimated Glomerular Filt Rate > 60; Glucose Fasting 102 mg/dL (60-99); HDL Cholesterol 58 mg/dL (>40); LDL Cholesterol Calculated 83 mg/dL (<100); Potassium 4.4 mmol/L (3.3-5.1); Sodium 141 mmol/L (135-145); Total Protein 7.6 g/dL (6.5-8.0); Triglycerides 143 mg/dL (<150)
[2023-11-07 11:03] LABS: TSH reflex Free T4 1.78 uIU/mL (0.32-4.0)
== END 2023-11-07 07:53 | disposition home or self-care (01) ==
LOC: HO.HMGCLDS 07:52
PROVIDERS: PCP Internal Medicine; Visit Provider Internal Medicine
DX: Z00.00 Encounter for general adult medical examination without abnormal findings (principal); E78.5 Hyperlipidemia, unspecified; I48.0 Paroxysmal atrial fibrillation
CPT/HCPCS: 36415; 80053; 80061; 84443; 85025

== ENCOUNTER → 2023-12-13 06:50 | Outpatient (REF) | payer MEDICARE, SELFPAY ==
--- NOTE | 2023-12-13 06:52 | HM_ITS ---
* Total monitoring time 3 days. * Underlying rhythm is sinus with an average rate of 70/Min. * Rare supraventricular ectopy. * Rare ventricular ectopy. * No significant pauses or high-grade AV blocks. * No patient markers or diary events. MTDD
== END ==
LOC: HO.CARD 06:50
PROVIDERS: PCP Internal Medicine; Visit Provider Internal Medicine
DX: I48.0 Paroxysmal atrial fibrillation (principal)
CPT/HCPCS: 93242

== ENCOUNTER → 2023-12-13 06:52 | Outpatient (BNV) | payer MEDICARE, SELFPAY | PROVIDERS: PCP Internal Medicine; Visit Provider Internal Medicine | DX: I47.10 Supraventricular tachycardia, unspecified (principal) | CPT/HCPCS: 93244 ==

== ENCOUNTER 2023-12-25 07:16 | Outpatient (REF) | payer MEDICARE, SELFPAY ==
--- NOTE | ~2023-12-25 | MM_ITS ---
EXAMINATION: MM SCREENING DIGITAL BREAST TOMOSYNTHESIS, BILATERAL CLINICAL INFORMATION: Screening. Asymptomatic. COMPARISON: Mammography: Comparison is made with available priors TECHNIQUE: Digital breast mammography with tomosynthesis is performed in both the craniocaudal and mediolateral oblique views along with computer-aided detection (CAD). FINDINGS: There are scattered areas of fibroglandular density (ACR BI-RADS breast composition Category b). There are no significant masses, abnormal calcifications, or other abnormalities. MM/MM tomosynthesis screening BI IMPRESSION: No mammographic evidence of malignancy. ASSESSMENT: BI-RADS BI-RADS 1 - Negative RECOMMENDATION: Routine annual mammography screening. 1 year F/U This examination should not preclude the clinical evaluation of a suspicious palpable abnormality. This patient's information was entered into a reminder system with a target due date for their next mammogram. Electronically signed by: Zunilda Jeffery DO 01/04/2024 06:35 PM EDT
== END 2023-12-25 07:17 | disposition home or self-care (01) ==
LOC: HO.MAMMO 07:16
PROVIDERS: PCP Internal Medicine; Visit Provider Internal Medicine
DX: Z12.31 Encounter for screening mammogram for malignant neoplasm of breast (principal)
CPT/HCPCS: 77063; 77067

== ENCOUNTER → 2023-12-25 07:30 | Outpatient (BNV) | payer MEDICARE, SELFPAY | PROVIDERS: PCP Internal Medicine; Visit Provider Internal Medicine | DX: Z12.31 Encounter for screening mammogram for malignant neoplasm of breast (principal) | CPT/HCPCS: 77063; 77067 ==

== ENCOUNTER 2024-01-24 13:58 | Outpatient (AMB) | payer MEDICARE, SELFPAY ==
[2024-01-24 14:00] VITALS: BP 136/76; PULSE 63; BMI 31.1
--- NOTE | 2024-01-24 14:00 | A.OFFVIS_ITS ---
Vital Signs 01/24/24 14:00 Height 5 ft 8 in Weight 204 lb 9.423 oz BMI 31.1 BP 136/76 Blood Pressure Location Lt brachial Position Sitting Pulse 63 Pulse Source Pulse Oximeter Intake Visit Reasons: 4 mth s/p holter Race Steward Required: No Accompanied by: Self / Same As Patient Allergies oxycodone [From PERCODAN] Allergy (Intermediate, Verified 11/01/23 14:31) HIVES rosuvastatin [From Crestor] Adverse Reaction (Intermediate, Verified 11/01/23 14:31) body aches Hydrocodone-Acetaminophen Adverse Reaction (Unknown, Uncoded 11/01/23 14:31) nausea and vomiting Medication List - Last Reconciled 01/24/24 by Vladimir Manley MD acetaminophen (Acetaminophen Extra Strength) 1,000 mg PO DAILY PRN albuterol sulfate 90 mcg/actuation 2 inhalations inhalation Q6-8H PRN amoxicillin 2,000 mg (4 x 500 mg) PO .before dental visit PRN apixaban (Eliquis) 5 mg PO BID ascorbic acid (vitamin C) 1,000 mg PO DAILY cholecalciferol (vitamin D3) (Vitamin D3) 50 mcg PO DAILY docusate sodium 100 mg PO BEDTIME evolocumab (Repatha SureClick) 140 mg subcut Q2W 90 days ezetimibe (Zetia) 10 mg PO DAILY fluoxetine 20 mg PO DAILY hydroxyzine HCl 25 mg PO DAILY PRN lamotrigine 250 mg PO BEDTIME latanoprost 0.005% 1 drp ophthalmic (eye) BEDTIME metoprolol tartrate 50 mg PO BID smrilsttnfqv-ajwdkwty-iusyho (Multivitamin 50 Plus tablet) 1 tab PO DAILY polyethylene glycol 3350 (Miralax) 17 grams PO DAILY trazodone 100 - 200 mg PO BEDTIME HPI Comments Details: Rowena returns for follow-up regarding atrial fibrillation. To recall, she had atrial fibrillation ablation 2013. Subsequently, was on short-term flecainide for palpitations thought to be from atrial fibrillation but later stopped. She was doing well for many years but more recently again having atrial fibrillation. Started beta-blockers with some improvement. Then flecainide was started. As she continued to get palpitations, underwent another atrial fibrillation ablation this year. After that, she states she feels fine. No further palpitations. No new concerns. 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 Has dyslipidemia. She was on Pravastatin but the LFTs were apparently abnormal and that led to holding it but the LDL went up really high. Currently taking Repatha/Zetia. 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 career 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 to a significant other at home: Yes Do you presently have visiting nurse or other home services: No Alcohol intake: current Alcohol intake frequency: holidays/special occasions only Patient Tobacco Use Status: Never used Tobacco e-Cigarette/Vaping Use: Never Used service: No Current occupational status: retired 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 Current occupational exposures/hazards: No Cognitive needs: No Hearing needs: No Vision needs: Yes Review of Systems Const Denies chills, Denies fatigue, Denies fever(s), Denies weight gain and Denies weight loss ENT Denies dizziness Card Denies chest pain, Denies leg edema, Denies lightheadedness, Denies palpitations, Denies dyspnea on exertion, Denies orthopnea and Denies other Resp Denies cough and Denies dyspnea on exertion GI Denies hematochezia and Denies change in stool character Musc Denies abnormal gait, Denies muscle weakness, Denies numbness, Denies radiating pain into limb and Denies tingling Neuro Denies abnormal gait, Denies dizziness, Denies numbness and Denies tingling Endo Denies fatigue and Denies palpitations Physical Exam Vital Signs: Last Vital Signs Pulse 63 01/24/24 14:00 BP 136/76 01/24/24 14:00 BMI result Body Mass Index 31.1 Const General: comfortable and no acute distress Orientation/consciousness: patient oriented x3 HEENT Other: Unremarkable Head: Yes normal to inspection Neck Neck: Yes normal visual inspection Chest Chest palpation & inspection: normal inspection of the chest Resp Auscultation: clear to auscultation bilaterally Cardio Palpation: normal PMI Heart sounds: S1 normal heart sound present, S2 normal heart sound present, no gallops, no murmurs and no rubs GI Palpation (GI): Soft to palpation Back/Spine/Pelvis Other: unremarkable Skin General skin exam: no rashes or lesions noted Neuro General: patient oriented x3 Extrem General: Yes normal to inspection Psych Mental Status: mental status grossly normal Assessment & Plan Assessment & Plan (1) PAF (paroxysmal atrial fibrillation): Code(s): I48.0 - Paroxysmal atrial fibrillation Category: Medical Plan: Atrial fibrillation ablation in 2013 and september 2023. No longer on flecainide. Remains on metoprolol and Eliquis. (2) Atherosclerotic cardiovascular disease: Code(s): I25.10 - Atherosclerotic heart disease of [place] coronary artery without angina pectoris Category: Medical Plan: Previously, underwent coronary CTA. She has nonobstructive disease in the LAD, diagonal, RCA. Myocardial perfusion imaging study from 2019 showed normal perfusion. Echocardiogram from [facility] 07/2023 with LVEF of 55-60%, no wall motion abnormalities. Otherwise unremarkable. Repeat perfusion imaging from [facility] 07/2023 is unremarkable. Risk factor modification. (3) Other and unspecified hyperlipidemia: Code(s): E78.5 - Hyperlipidemia, unspecified Category: Medical Plan: Statin intolerant. Also had some LFT issues. Currently on Repatha and Zetia. Most recent LDL 83 mg/dL. In the past, as much as 249 mg/dL. Orders: Orders ECG 7 day holter monitor 1 Year I48.0 - Paroxysmal atrial fibrillation Medications: Changed From metoprolol tartrate 25 mg PO BID 120 tabs 3RF To metoprolol tartrate 50 mg PO BID Coding Level of Care Code Est Pt Level 4 (18169) Diagnoses PAF (paroxysmal atrial fibrillation) I48.0 Atherosclerotic cardiovascular disease I25.10 Other and unspecified hyperlipidemia E78.5
== END 2024-01-24 14:17 | disposition home or self-care (01) ==
LOC: HO.HCS 13:59
PROVIDERS: PCP Internal Medicine; Visit Provider Internal Medicine
DX: I48.0 Paroxysmal atrial fibrillation (principal); I25.10 Atherosclerotic heart disease of native coronary artery without angina pectoris; E78.5 Hyperlipidemia, unspecified
CPT/HCPCS: 99214

== ENCOUNTER → 2024-01-24 13:58 | Outpatient (BNVA) | payer MEDICARE, SELFPAY | PROVIDERS: PCP Internal Medicine; Visit Provider Internal Medicine | DX: I48.0 Paroxysmal atrial fibrillation (principal); I25.10 Atherosclerotic heart disease of native coronary artery without angina pectoris; E78.5 Hyperlipidemia, unspecified | CPT/HCPCS: 99212 ==

== ENCOUNTER 2024-01-29 13:03 | Outpatient (AMB) | payer MEDICARE, SELFPAY ==
--- NOTE | 2024-01-29 13:06 | MHC.OFFWIV ---
Intake Vital Signs 01/29/24 13:09 Height 5 ft 8 in Weight 204 lb BMI 31.0 BP 132/76 Blood Pressure Location Rt brachial Position Sitting Pulse 76 Pulse Source Pulse Oximeter Pulse Oximetry (%) 98 Intake Visit Reasons: EP LT foot injury Intake Note: pt is here for left foot injury Patient Tobacco Use Status: Never used Tobacco Allergies oxycodone [From PERCODAN] Allergy (Intermediate, Verified 01/29/24 13:10) HIVES rosuvastatin [From Crestor] Adverse Reaction (Intermediate, Verified 01/29/24 13:10) body aches Hydrocodone-Acetaminophen Adverse Reaction (Unknown, Uncoded 11/01/23 14:31) nausea and vomiting Do you need a note to return to daycare/school/sports/work: No HPI EP LT foot injury HPI Details This note is constructed using voice recognition software. While every effort has been made to ensure accuracy, nurse practitioner physician assistant errors may have been included. The patient is a 68 year old female who presents to the clinic today with left foot pain since yesterday. She notes that she was getting out of the car when she felt a sharp pain in the left foot which occurred when she was moving the foot, but not when she was landing. She did not rolled the ankle, however she reports that the pain was in the lateral aspect of the foot, and then radiated medially. She had compression socks on initially, and was able to continue with her 1 mi walk that she had, and then on return she removed the compression sock noting that she had an increased amount of swelling in the lateral ankle area. She reports that she has had multiple knee surgeries on the same side in the past, and he has had a large hematoma in that leg. She denies numbness or tingling. 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 Are you 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 senior care assistant to a significant other at home: Yes Do you presently have visiting nurse or other home services: No Alcohol intake: current Alcohol intake frequency: holidays/special occasions only Patient Tobacco Use Status: Never used Tobacco e-Cigarette/Vaping Use: Never Used service: No Current occupational status: retired 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 Current occupational exposures/hazards: No Cognitive needs: No Hearing needs: No Vision needs: Yes Review of Systems Const All systems reviewed & are unremarkable except as noted in HPI and below Physical Exam Vital Signs: Last Vital Signs Pulse 76 01/29/24 13:09 BP 132/76 01/29/24 13:09 Pulse Ox 98 01/29/24 13:09 BMI result Body Mass Index 31.0 Const General: cooperative, healthy appearing, comfortable, no acute distress and well developed Orientation/consciousness: patient oriented x3 Limitations: no limitations Resp Effort & Inspection: normal respiratory effort and able to speak in complete sentences Skin General skin exam: no rashes or lesions noted Neuro General: patient oriented x3 Extrem Other: Full range of motion left ankle, foot, knee. Tender to palpation inferior to medial malleolus, with slight edema. Tender to palpation also lateral inferior malleolus with slight edema. No erythema or warmth. Strength 5/5, equal bilaterally. Distal neurovascular exam intact. General: Yes normal to inspection Assessment & Plan Assessment & Plan (1) Left ankle pain: Code(s): M25.572 - Pain in left ankle and joints of left foot Qualifiers: Chronicity: acute Qualified Code(s): M25.572 - Pain in left ankle and joints of left foot Plan: Imaging ordered to rule out fracture given location of tenderness. No obvious fracture on imaging. Niko wrap applied. Advised rest, ice, compression, elevation. Advised follow up with worsening symptoms or failure to resolve. Orders: Orders XR ankle LT min 3V Today M25.579 - Pain in unspecified ankle and joints of unspecified foot Coding Level of Care Code Est Pt Level 4 (26005) Diagnoses Acute left ankle pain M25.572 Chronicity: acute
[2024-01-29 13:09] VITALS: BP 132/76; PULSE 76; O2SAT 98; BMI 31.0
== END 2024-01-29 13:55 | disposition home or self-care (01) ==
PROVIDERS: PCP Internal Medicine; Visit Provider Registered Nurse
DX: M25.572 Pain in left ankle and joints of left foot (principal)

== ENCOUNTER 2024-01-29 13:03 | Outpatient (REF) | payer MEDICARE, SELFPAY ==
--- NOTE | ~2024-01-29 | XR_ITS ---
EXAMINATION: XR ANKLE, LEFT CLINICAL INFORMATION: Medial malleolar tenderness. COMPARISON: None available. TECHNIQUE: AP, lateral, and mortise views of the left ankle. FINDINGS: No acute fracture or dislocation. The ankle mortise is maintained. No joint space narrowing or marginal osteophytes. No osseous erosion. Circumferential soft tissue swelling. Small tibiotalar joint effusion. Plantar and dorsal calcaneal spurs. XR/XR ankle LT min 3V IMPRESSION: 1. Circumferential soft tissue swelling without acute osseous abnormality. 2. Small tibiotalar joint effusion. 3. Plantar and dorsal calcaneal spurs. Electronically signed by: Heriberto Rowe MD 01/29/2024 04:00 PM [facility] [place] [facility] [place]
== END 2024-01-29 13:04 | disposition home or self-care (01) ==
LOC: HO.HMGCX 13:03
PROVIDERS: PCP Internal Medicine; Visit Provider Registered Nurse
DX: M25.572 Pain in left ankle and joints of left foot (principal)
CPT/HCPCS: 73610; 99212

== ENCOUNTER 2024-02-15 08:21 | Outpatient (REF) | payer MEDICARE, SELFPAY ==
[2024-02-15 11:22] LABS: Influenza A PCR NEGATIVE (Negative); Influenza B PCR NEGATIVE (Negative); Resp Syncy Virus RNA Qual PCR NEGATIVE (Negative); SARS COV2 PCR INHOUSE NEGATIVE (Negative)
== END 2024-02-15 08:22 | disposition home or self-care (01) ==
LOC: HO.LAB 08:21
PROVIDERS: PCP Internal Medicine; Visit Provider Physician Assistant
DX: J06.9 Acute upper respiratory infection, unspecified (principal); R05.9 Cough, unspecified
CPT/HCPCS: 0241U; 94640; 99212

== ENCOUNTER 2024-02-15 08:21 | Outpatient (AMB) | payer MEDICARE, SELFPAY ==
--- NOTE | 2024-02-15 08:37 | MHC.OFFWIV ---
Intake Vital Signs 02/15/24 08:38 Weight 205 lb BP 120/82 Blood Pressure Location Rt brachial Position Sitting Pulse 62 Pulse Source Pulse Oximeter Temp 98.0 F Temp Source Oral Pulse Oximetry (%) 95 Oxygen Delivery Method Room Air Intake Visit Reasons: EP SOB, cold, cough, wheezing Intake Note: Patient here for cough, SOB, wheezing that has been present for 1 week. Patient Tobacco Use Status: Never used Tobacco Allergies oxycodone [From PERCODAN] Allergy (Intermediate, Verified 02/15/24 08:38) HIVES rosuvastatin [From Crestor] Adverse Reaction (Intermediate, Verified 02/15/24 08:38) body aches Hydrocodone-Acetaminophen Adverse Reaction (Unknown, Uncoded 02/15/24 08:38) nausea and vomiting Do you need a note to return to daycare/school/sports/work: No HPI HPI Comments History of Present Illness Details The patient is a 68-year-old female presenting with a productive cough and shortness of breath. The symptoms started approximately one week ago, characterized by the production of green sputum and nasal congestion. She reported some sinus pain and occasional headaches but denied ear pain, fevers, or gastrointestinal symptoms. The patient has a history of asthma and has been using her rescue inhaler frequently, depleting it within the week due to increased respiratory symptoms. No prior daily maintenance inhaler is used. She also experiences episodes of wheezing and has noted some fatigue. There is some household exposure to respiratory illness, as her granddaughter recently exhibited similar symptoms diagnosed as viral. The patient's typical temperature is 96-97?F, with a current measurement of 98?F, which she does not consider a fever. Despite previously using [id number] medications containing antihistamines, she finds they have minimally alleviated symptoms. No significant allergies or other medical issues related to the respiratory illness reported prior to this visit. 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 Are you a primary customer care voice consultant to a significant other at home: Yes Do you presently have visiting nurse or other home services: No Alcohol intake: current Alcohol intake frequency: holidays/special occasions only Patient Tobacco Use Status: Never used Tobacco e-Cigarette/Vaping Use: Never Used service: No Current occupational status: retired 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 Current occupational exposures/hazards: No Cognitive needs: No Hearing needs: No Vision needs: Yes Review of Systems Const All systems reviewed & are unremarkable except as noted in HPI and below Physical Exam Vital Signs: Last Vital Signs Temp 98.0 F 02/15/24 08:38 Pulse 62 02/15/24 08:38 BP 120/82 02/15/24 08:38 Pulse Ox 95 02/15/24 08:38 Oxygen Delivery Method Room Air 02/15/24 08:38 General: Cooperative, healthy appearing, comfortable and no acute distress Orientation/consciousness: Patient oriented x3 Limitations: No limitations Head: Normal to inspection Ears: Hearing grossly normal bilaterally, external ears normal and TM's normal bilaterally Nose: Normal external nose present, Normal nares present and Nasal congestion present Face and sinus: Normal facial exam and Sinuses tender Mouth: Normal oral and palatal mucosa present and moist mucous membranes Throat: Yes tonsils normal, Yes uvula midline. Posterior oropharynx erythema Eyes: Appearance normal, both eyes and all related structures Neck: Normal visual inspection Respiratory: Clear to auscultation bilaterally. Normal respiratory effort, able to speak in complete sentences, Actively coughing, no respiratory distress, not tachypneic, no tripod positioning and no use of accessory muscles Cardiovascular: Regular rate and rhythm. Normal S1 and S2 Skin: No rashes or lesions noted Neuro: Patient oriented x3 Extremities: Normal to inspection and Yes no clubbing, cyanosis or edema Office Procedures Nebulizer Treatment Nebulizer Treatment [id number]/MDI RX initial, or Nebulizer Subsequent Treatment Office Meds ipratropium 0.5 mg-albuterol 3 mg (2.5 mg base)/3 mL nebulization soln Performing Provider: Josie Sneed PA-C Performing Location: [facility] [place] [facility] Administered by: Josie Sneed PA-C on 02/15/24 09:04 Dose Route Admin Location Dispensed Lot Number Expiration Date NDC Manager Of Radiology 3 mL inhalation 3 mL [id number] 05/24/25 67297-884-31 [employer] Assessment & Plan Assessment & Plan (1) URI (upper respiratory infection): Code(s): J06.9 - Acute upper respiratory infection, unspecified Qualifiers: URI type: unspecified URI Qualified Code(s): J06.9 - Acute upper respiratory infection, unspecified Plan: 1. Acute Viral Upper Respiratory Infection: - Vital signs stable, lungs clear. Continue supportive care with [id number] symptomatic treatments. Sent Flu, Covid and RSV testing; sent refill on inhaler. Will get a chest x-ray to rule out pneumonia, especially given the patient's asthmatic history and age. 2. Asthma: - Provide a nebulizer treatment with albuterol and ipratropium (Duoneb) to alleviate respiratory symptoms. - Discuss recognition of exacerbations and appropriate use of rescue inhaler. - Follow up on chest x-ray results; plan to prescribe antibiotics if pneumonia is indicated. Should the test results indicate any serious viral infection or if symptoms do not improve, further investigations or treatments will be considered accordingly. Patient was informed and verbally consented to the use of an ambient scribe for clinic note documentation during this visit Orders: Orders AMB Nebulizer Treatment Today J06.9 - Acute upper respiratory infection, unspecified XR chest 2V Today R05.9 - Cough, unspecified SARS-CoV2/FLU/RSV Today J06.9 - Acute upper respiratory infection, unspecified Medications: New ipratropium-albuterol 0.5 mg-3 mg(2.5 mg base)/3 mL 3 mL inhalation Q6-8H PRN 90 mL 0RF wheezing Refilled albuterol sulfate 90 mcg/actuation 2 inhalations inhalation Q6-8H PRN 8.5 grams 2RF shortness of breath or wheezing Coding Level of Care Code Est Pt Level 4 (09072) Diagnoses Upper respiratory tract infection, unspecified type J06.9 URI type: unspecified URI CPT Codes Nebulizer Treatment - Nebulizer Treatment, initial or subsequent: [id number]/MDI RX initial, or Nebulizer Subsequent Treatment ([id number])
[2024-02-15 08:38] VITALS: BP 120/82; PULSE 62; TEMP 36.7; O2SAT 95
--- OUTSIDE RECORDS SUMMARY | 2024-02-16 14:35 | XMS_ITS | Continuity of Care Document ---
Author Organization [facility] ter Address [address] [place] [address]- Care Team Providers Care Content Management Specialist Name Role Phone Bonny Bueno MD Primary Care Physician [phone] [place] [facility] [place](s): 09/26/23 - 09/26/[address] [address] Discharge Disposition: A-D/C Home Attending Physician: Hernan Rowan MD Admitting Physician: Hernan Rowan MD Referring Physician: Hernan Rowan MD Allergies, Adverse Reactions, Alerts Substance Reaction Severity Status Percodan N&V - Nausea and vomiting Ac tive Crestor Cramp in muscle Active Medications amoxicillin 500 mg oral capsule TAKE 4 CAPS (2000 MG) ORALLY BEFORE DENTAL VISIT NEEDED FOR BEFORE DENTAL PROCEDURE Start Date: 07/03/23 Status: Ordered citalopram 40 mg oral tablet 40 mg, 1, tablet, By Mouth, Daily at bedtime, # 30 tablet, Refills 1, Tot. Refills 1, Maintenance, 12/26/18 14:08:33 EDT, Route to Pharmacy Electronically, [id number], [facility]/pharmacy #[id number] Start Date: 12/26/18 Status: Ordered docusate sodium 100 mg oral capsule 100 mg, 1, capsule, By Mouth, Daily, # 30 capsule, Refills 0, Tot. Refills 0, Maintenance, 12/05/1914:56:56 EDT, Route to Pharmacy Electronically, [id number], [id number] Start Date: 12/05/18 Status: Ordered Eliquis 5 mg oral tablet See Instructions, 0 Refills, Maintenance, 09/26/23 7:56:00 EDT, Partial fill upon patient request if the prescription is for a schedule II opioid drug. Start Date: 09/26/23 Status: Ordered ezetimibe 10 mg oral tablet 0 Refills, Maintenance, 09/26/23 7:56:00 EDT, Partial fill upon patient request if the prescriptionis for a schedule II opioid drug. Start Date: 09/26/23 Status: Ordered FLUoxetine 20 mg oral capsule TAKE 1 CAPSULE BY MOUTH EVERY DAY IN THE MORNING Start Date: 07/03/23 Status: Ordered hydrOXYzine pamoate 25 mg oral capsule 1 capsule = 25 mg, By Mouth, 3 times a day, PRN Anxiety, # 90 capsule, 1 Refills, Maintenance, 12/26/18 14:08:42 EDT, Capsule Start Date: 12/26/18 Status: Ordered lamotrigine 100 mg oral tablet 250 mg, 2.5, tablet, By Mouth, Daily at bedtime, # 75 tablet, Refills 1, Tot. Refills 1, Maintenance, 12/26/18 14:08:43 EDT, Route to Pharmacy Electronically, [id number], [facility]/pharmacy #[id number] Start Date: 12/26/18 Status: Ordered latanoprost 0.005% ophthalmic solution 1 drops, Eyes, Both, Daily at bedtime, 0 Refills, Maintenance, 12/06/18 12:06:47 EDT Start Date: 12/06/18 Status: Ordered Metoprolol Tartrate 50 mg oral tablet 0.5 tablet = 25 mg, By Mouth, 2 times a day, TAKE 1 TABLET BY MOUTH TWICE A DAY Start Date: 07/03/23 Status: Ordered nitroglycerin 0.4 mg sublingual tablet 1 tablet = 0.4 mg, Sublingual, Every 5 minutes, PRN as needed for chest pain, not to exceed 3 doses/15 min--if pain persists, seek medical attention, # 100 tablet, 0 Refills, Maintenance, 03/02/21 7:01:00 EST, Tablet, Partial fill upon patient request... Start Date: 03/02/21 Status: Ordered polyethylene glycol 3350 oral powder for reconstitution = 17 Gm, By Mouth, Daily, dissolve in water before taking dissolve in 4 to 8 oz of beverage, # 255 Gm, 0 Refills, Maintenance, 07/25/23 21:20:00 EDT, REC Powder, Partial fill upon patient request if the prescription is for a schedule II opioid drug. Start Date: 07/25/23 Status: Ordered Repatha SureClick 140 mg/mL subcutaneous solution 0 Refills, Maintenance, 09/26/23 7:56:00 EDT, Partial fill upon patient request if the prescriptionis for a schedule II opioid drug. Start Date: 09/26/23 Status: Ordered traZODone 100 mg oral tablet 100 mg, 1, tablet, By Mouth, Daily at bedtime, # 30 tablet, Refills 1, Tot. Refills 1, Maintenance,12/26/18 14:08:44 EDT, Route to Pharmacy Electronically, [id number], [facility]/pharmacy #[id number] Start Date: 12/26/18 Status: Ordered Problem List Condition Confirmation Course Effective Dates Status H ealth Status Informant Paroxysmal Atrial fibrillation and flutter Confirmed Active Bipolar 1 disorder Confirmed Active Chronic lower back pain Confirmed Active Depression Confirmed Active History of Diverticulitis, status post partial colon resection Confirmed 2011 Active Diverticulitis of colon S/P partial colectomy 2009 Confirmed Active Glaucoma Confirmed Active HLD (hyperlipidemia) Confirmed Active 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 Obese class I Confirmed Active Open wound of left lower leg Confirmed Active OA (osteoarthritis) Confirmed Active Palpitations Confirmed Active Vital Signs Most recent to oldest [Reference Range]: 1 2 3 Height 172.72 cm (09/26/23 8:01 AM) Weight 92.2 kg (09/26/23 8:01 AM) Oxygen Saturation [94-100 %] 91 % *L* (09/26/23 5:00 PM) 95 % (09/26/23 4:30 PM) 91 % *L* (09/26/23 4:00 PM) Pulse Rate [55-90 bpm] 56 bpm (09/26/23 8:01 AM) Body Mass Index [18.5-24.99 kg/m2] 30.91 kg/m2 *>HHI* (09/26/23 8:01 AM) Blood Pressure [90-138/55-84 mm Hg] 124/73mm Hg (09/26/23 5:00 PM) 121/74mm Hg (09/26/23 4:30 PM) 132/70mm Hg (09/26/23 4:00 PM) Respiratory Rate [16-30 br/min] 14 br/min *L* (09/26/23 5:45 PM) 12 br/min *L* (09/26/23 5:00 PM) 13 br/min *L* (09/26/23 4:30 PM) Temperature [96.8-100.4 DegF] 98 DegF (09/26/23 5:00 PM) 98.5 DegF (09/26/23 12:45 PM) 96.5 DegF *L* (09/26/23 8:01 AM) Liters per Minute 6 L/min (09/26/23 1:15 PM) 6 L/min (09/26/23 1:00 PM) 6 L/min (09/26/23 12:45 PM) Mode of Delivery (Oxygen) Room air (09/26/23 5:00 PM) Room air (09/26/23 4:30 PM) Room air (09/26/23 4:00 PM) Blood pressure sites Arm, left (09/26/23 5:00 PM) Arm, left (09/26/23 4:30 PM) Arm, left (09/26/23 4:00 PM) Temperature Route Temporal (09/26/23 5:00 PM) Temporal (09/26/23 12:45 PM) Temporal (09/26/23 8:01 AM) Dry Weight 92.2 kg (09/26/23 8:01 AM) Weight Obtained Via Standing scale (09/26/23 8:01 AM) Dry Weight Obtained Via Standing scale (09/26/23 8:01 AM) Social History Social History Type Response Smoking Status Never (less than 100 in lifetime) entered on: 03/01/21 Sex Female Note * Event Display: Hemodynamic Procedure Report Authored Date: * Chyna Mathias RN: PERFORM Event Display: Discharge/Transfer Note Hospital Authored Date: [id number] Nursing Discharge Note Entered On: 09/26/2023 17:56 EDT Performed On: 09/26/2023 17:55 EDT by Chyna Mathias RN Nursing Discharge Note 2 Discharge Time : 09/26/2023 17:52 EDT Discharge Level of Care at Discharge : Home/Chcf/Foster Care Patient Left Unit Via : Wheelchair Patient Accompanied Off Unit with : Responsible adult DC Instructions Provided & Signed by Pt : Yes Patient Understands D/C Instructions : Yes Verbalized Understanding of D/C Plan By : Patient Patient Instructions Discharge Signed : Yes Did Pt have Specialty Bed or Wound Vac : No Chyna Mathias RN - 09/26/2023 17:55 EDT * Chyna Mathias RN: PERFORM Event Display: Patient Education/Instruction Authored Date: [id number] Surgery Adult Discharge Instructions [address] [id number] Name: CORTNEY DOMINIQUE : 1955?? Visit: 09/26/2023 07:28?? Current Date: 09/26/2023 17:16 ?? Account: [id number]?? Surgery Discharge Instructions We would like to thank you for allowing us to assist you with your healthcare needs. The following includes patient education materials and information regarding your injury/illness. Our entire staffstrives to provide an excellent experience for our patients and their families. PLEASE ENSURE YOU FOLLOW-UP PER THE INSTRUCTIONS BELOW! ?? YOUR OPINION IS IMPORTANT TO US! Please complete the survey you may receive by mail or email. Your feedback will be used to make improvements to the healthcare experiences of our patients and their families. Surveys are administered by [employer] ?? If further treatment with your primary care physician or another doctor is recommended, it is important for you to keep the appointment. Call your primary care physician or return to the Emergency Department immediately if your condition worsens, fails to improve, or new symptoms develop. If you need to find a doctor, you can call [facility] [employer] for a referral at [phone] or toll free at [phone] or log in to [email or web address].. ?? [facility], in keeping with [facility] guidance, no longer requires face masks for staff, patientsor visitors in most situations. Similiar to time spent indoors at other locations, there is the chance that you were exposed to repiratory viruses during your time with us (such as flu or COVID-19). If you develop symptoms concerning for a viral respiratory infection, please seek testing (and treatment if indicated) from your medical provider or home test kit. ?? You can view and manage your care through the patient portal or by using a health care pablo of your choosing. [employer] is a website that allows you to securely view your medical information including your hospital discharge summary, office visit summaries, medications and follow-up visits. You can also request appointments, renew medications, and request access to your medical information using a health care pablo of your choosing, or just ask a question. You are entitled to know the individuals who participated in your treatment. This information is available within your medical record and will be provided upon your request. You can enroll at [email or web address] or register d uring your next office visit. You have been discharged from [facility], Patient Care Unit: CARE??. If you have any questions regarding these instructions after you leave, please call us and we will be happy to assist you. [facility] Your Care Team Attending Physician Hernan Rowan MD?? Discharging Providers Monico Valentine MD Reason for Admission AFIB PFA AFIB ABLATION HV2 ARRIVAL 730AM Primary Care Provider Bonny Bueno MD? Advance Directive Health Care Proxy on File Yes - Health Care Proxy What to do next Instructions From Your Doctor ?? Orders?? discharge after post procedure rest order complete, patient has ambulated and groin incision(s) arestable 30 mins post ambulation, ??09/26/23 12:22:00 EDT?? Instructions from your Care Team Please see attached discharge instructions You Need to Schedule the Following Appointments Follow Up with??Hernan Rowan When:??Within 2 to 3 weeks Where: [address] [facility] [place] [address]- Business (1) Follow Up with??Bonny Bueno When:??In 0 days Where: [address] [place] [address]- Business (1) Discharge Medications CORTNEY DOMINIQUE :1955 Visit Date:09/26/2023 Medications: Please continue your medications until treatment is completed or stopped by your provider. You may resume your daily prescription medications. Discuss any questions related to medications with your provider. What How Much When Instructions Next Dose Unchanged Amoxicillin (amoxicillin 500 mg oral capsule) TAKE 4 CAPS (2000 MG) ORALLY BEFORE DENTAL VISIT NEEDED FOR BEFORE DENTAL PROCEDURE ?? Unchanged apixaban (Eliquis 5 mg oral tablet) See instructions Tonight 7/2 before bed Unchanged Citalopram (citalopram 40 mg oral tablet) 1 tab(s) Oral Daily at Bedtime Unchanged Docusate (docusate sodium 100 mg oral capsule) 1 capsule Oral Daily Unchanged evolocumab (Repatha SureClick 140 mg/ mL subcutaneous solution) Unchanged Ezetimibe (ezetimibe 10 mg oral tablet) Unchanged Fluoxetine (FLUoxetine 20 mg oral capsule) TAKE 1 CAPSULE BY MOUTH EVERY DAY IN THE MORNING ?? Unchanged HydrOXYzine (hydrOXYzine pamoate 25 mg oral capsule) 1 capsule Oral 3 times a day as needed for Anxiety Unchanged Lamotrigine (lamotrigine 100 mg oral tablet) 2.5 tab(s) Oral Daily at Bedtime Unchanged Latanoprost Ophthalmic (latanoprost 0.005% ophthalmic solution) 1 Drops Both eyes Daily at Bedtime Unchanged Metoprolol (Metoprolol Tartrate 50 mg oral tablet) 0.5 tab(s) Oral Twice a day TAKE 1 TABLET BY MOUTH TWICE A DAY ?? Unchanged Nitroglycerin (nitroglycerin 0.4 mg sublingual tablet) 1 tab(s) Sublingual Every 5 minutes as needed for as needed for chest pain not to exceed 3 doses/ 15 min--if pain persists, seek medical attention ?? Unchanged Polyethylene Glycol 3350 (polyethylene glycol 3350 oral powder for reconstitution) 17 gram Oral Daily dissolve in water before taking dissolve in 4 to 8 oz of beverage ?? Unchanged Trazodone (traZODone 100 mg oral tablet) 1 tab(s) Oral Daily at Bedtime ?? What How Much When Comments Stop Taking Flecainide (flecainide 100 mg oral tablet) 100 Milligram Oral Every 12 hours ? Continue all other medications per home schedule ?? Next dose Tylenol: 6 pm Allergies (NKA means No Known Allergies) Crestor??(Cramp in muscle) Percodan??(N&V - Nausea and vomiting) Education Materials Below is the list of Educational Leaflet Providered with your Discharge Instructions. [employer] Patient Education - M-Groin I Discharge Instructions?? [employer] Patient Education - Anesthesia: General Anesthesia?? [employer] Patient Education - Discharge Instructions for Catheter Ablation?? Valuables and Belongings I fully understand and agree that [facility] accepts no responsibility for all my personal property including clothing, toilet articles, radios, jewelry, dentures, hearing aids, rings, money, or any other property that is in my possession or is brought to me after admission. I understand certain valuables may be placed in a hospital safe for a short period of time. I understand that the hospital is not liable for loss or damage due to accident, fire, or other natural occurrence while said property is in the safe. I accept full responsibility for any personal property that I keep with me, and will not hold the hospital responsible in case of loss or disappearance. I acknowledge that i have been encouraged to send valuables and belongings home. ?? Date for Pt to Sign Valuables/Belongings: 09/26/23 08:46:00 ?? Valuables & Belongings ?? Clothes Electronic devices Jewelry Monetary Items Personal devices Miscellaneous Medications (Valuables) Valuables at Bedside Jacket, Pants, Shirt, Shoes, Undergarments ? Purse Glasses ? Valuables Sent Home ? Valuables Sent to Security ? Other Discharge Information ? Pulmonary Rehab Status?? Pulmonary Rehab Discharge Status?? Respiratory Rate:??12 br/min??Low ? Common Emergency Awareness Tips IS IT A STROKE? Act FAST and Check for these signs: FACE Does the face look uneven? ARM Does one arm drift down? SPEECH Does their speech sound strange? TIME Call at any sign of stroke ?? Heart Attack Signs Chest discomfort: Most heart attacks involve discomfort in the center of the chest and lasts more than a few minutes, or goes away and comes back. It can feel like uncomfortable pressure, squeezing, fullness or pain. Discomfort in upper body: Symptoms can include pain or discomfort in one or both arms, back, neck, jaw or stomach. Shortness of breath: With or without discomfort. Other signs: Breaking out in a cold sweat, nausea, or lightheaded. Remember, MINUTES DO MATTER. If you experience any of these heart attack warning signs, call to get immediate medical attention! ?? Smoking can increase your chances of developing chronic health problems and can cause harmful effects to other family members in your house. If you smoke, you are strongly encouraged to quit. Please call [facility] [email or web address] Link at [phone] or [phone] ([phone]) or log in to [email or web address] for referrals to smoking cessation programs. ?? The National Suicide Prevention Hotline is available 17/10 if you or someone you know needs to find a reason to keep living. By calling 0-430-394-Auramist (8311) you'll be connected to a skilled, trained counselor at a crisis center in your area. SURGERY DISCHARGE INSTRUCTIONS SIGNATURE PAGE TRIPCORTNEY Location:[facility] Registration Date and Time:09/26/2023 07:28 EDT Primary Care Physician: Bonny Bueno MD, Attending Physician: Anum SANDERSON, Hernan Simental, I CORTNEY DOMINIQUE, have received the above patient education materials/instructions and have verbalized understanding. If ambulance or transport services are being used I further acknowledge being given a choice of service. ?? If you need to contact me, please call me at this number: . Patient/Cobbler Mckay Name: CORTNEY DOMINIQUE Patient/Cobbler Mckay Signature: Relationship to Patient: Witness Name/Signature: Date: * Chyna Mathias RN: PERFORM, SIGN, VERIFY Event Display: Patient Education Handout Authored Date: * Chyna Mathias RN: PERFORM Event Display: Patient Education Leaflets Authored Date: M-Groin I Discharge Instructions ?? 179 Groin Discharge Instructions No heavy lifting over 10 pounds (for example: gallon of milk) 1 week following the procedure; gradually increase normal activity over the next 5 days. Avoid straining/pushing when moving bowels You may feel like resting more after your procedure. Slowly start to do more each day. Rest when you feel it is needed. Make sure to look at your procedure site every day until it is completely healed. You may see bruising at the puncture site and that is common after the procedure. You may shower the day after your procedure. Remove the band aid before showering. Wash the area gently with soap and water. Leave open to air. Do not take tub baths, hot tubs, soaking of the puncture site or swimming for 1 week. Do not put any creams, powders or lotions on your puncture site You may resume sexual activity the day after your procedure; avoid bending the hip on ?? the side of the groin puncture excessively and any strenuous positions for 1 week. Call your doctor if your procedure site develops any of the following: ??? New onset severe pain ??? New onset lump or swelling ??? Bleeding that does not stop with lightpressure ? * Chyna Mathias RN: PERFORM Event Display: Patient Education Leaflets Authored Date: [id number] Discharge Instructions for Catheter Ablation ?? [address] Discharge Instructions for Catheter Ablation You have had a procedure called catheter ablation. It was??used to treat an abnormal heartbeat (arrhythmia). This procedure destroyed (ablated) the cells in your heart that were causing your heart rhythm problem. During the procedure, the healthcare provider put a thin,??flexible??wire (catheter)??into a blood vessel in your groin. You may have also had a catheter placed through a vein in your neck. The provider then threaded the catheter to your heart and destroyed the cells causing the problem. Home care Here are recommendations for care at home:? Make arrangements for someone to drive you home after the procedure. This is you will be given medicine to relax you (sedation). Your healthcare provider may tell you not to??drive for 24 to 48 hours after the procedure. ??? Expect to be able to go back to your normal daily activities in the next 1 to 2 days. These??include walking, climbing stairs, and doing light trouble tracer. ??? Don't do any heavy physical activity or excessive bending atthe waist for several days after the procedure. This will allow your body to heal. ??? Don't lift heavy objects for a period of time after your ablation. Talk with your healthcare provider about any specific limits you need to follow. Ask your provider when it is OK to lift heavy objects and returnto physical activity. ??? Ask your healthcare provider when you can??return to work. ??? Check the area where the catheter was inserted for signs of infection every day for a week. Keep the site dry for 1 to 2 days or as instructed. Signs of infection include redness, swelling, drainage, or warmth at the incision site.??Take your temperature if you feel you may have a fever. Let your provider know if you develop any symptoms of infection or see any discharge from your site. ??? Take your medicines exactly as directed. Don???t skip doses. You may need to make some changes in your medicines because of the ablation procedure. Be sure to go over your medicine instructions with your healthcare pr ovider before you are discharged. ??? Learn to take your own pulse. Keep a record of your results. Ask your healthcare provider which readings mean that you need medical attention. ?? Follow-up care Make a follow-up appointment as directed by your healthcare provider. Your provider will check how the catheter site is healing. In many cases, one ablation is enough to treat an arrhythmia. But sometimes the problem comes back or another problem is found. If this happens, you may need a second procedure. ?? When to call your healthcare provider Call your healthcare provider right away if you have any of the following: ??? Redness, pain, swelling, bleeding, or drainage from the area where the catheter was put in ??? Temperature of 100.4??F (38.0??C) or higher, or as directed by your healthcare provider? Suddencoldness, pain, or numbness in the leg or arm where the catheter was put in ??? Nausea or vomiting ??? Difficulty swallowing, excessive pain when swallowing, or vomiting blood ??? Heart rate that stays high Note: Ask your healthcare provider what to expect about your heartbeat. Sometimes the irregularity goes away right after the procedure. Other times it may take longer to go away. ?? Call 911 Call 911 right away if you notice: ??? Bleeding from the puncture site does not slow down when you press on it firmly ??? Chest pain, shortness of breath, or dizziness ??? Sudden numbness or weakness, especially on one side of the body, or difficulty speaking ??? Sudden loss of consciousness/responsiveness ?? Last Reviewed Date: 2021 ?? 1075-0443 [employer]. All rights reserved. This information is not intended as a substitute for professional medical care. Always follow your healthcare professional's instructions. ?? * Chyna Mathias RN: PERFORM Event Display: Patient Education Leaflets Authored Date: [id number] Anesthesia: General Anesthesia ?? [address] Anesthesia: General Anesthesia You???re due to have surgery. During surgery, you???ll be given medicine called anesthesia or anesthetic. This will keep you comfortable and pain-free. Your??anesthesia provider??will use general anesthesia . You are watched continuously during your procedure by your anesthesia provider. What is general anesthesia? General anesthesia puts you into a state like deep sleep. It goes into the bloodstream (IV anesthetics), into the lungs (gas anesthetics),or both. You feel nothing during the procedure. You won't remember it either. During the procedure, the anesthesia provider monitors you continuously. They trackyour heart rate and rhythm, blood pressure, breathing, and blood oxygen. ??? IV anesthetics. IV anesthetics are given through an IV (intravenous) line in your arm. They???re often given first. This is so you're asleep before a gas anesthetic is started. Some kinds of IV anesthetics ease pain. Others relax you. Your healthcare provider will decide which kind is best in your case. ??? Gas anesthetics. Gas anesthetics are breathed into the lungs. They're often used to keep you asleep. They can be given through a face mask. Or they can be given through a tube placed in your voice box (larynx) or breathing tube (trachea). o Face mask. Your anesthesia provider will most likely place the face maskover your nose and mouth while you???re still awake. You???ll breathe oxygen through the mask as your IV anesthetic is started. Gas anesthetic may be added through the mask. o Tube in the larynx or trachea. The tube will be inserted into your throat after you???re asleep. ?? Anesthesia tools and medicines You will likely have: ??? IV anesthetics. These are put into an IV line into your bloodstream. ??? Gas anesthetics.??You breathe these??anesthetics??into your lungs. Then they pass into your bloodstream. ??? Pulse oximeter. This is a small clip that's attached to??the end of your finger. It measures your blood oxygen level. ??? Electrocardiography leads (electrodes). ??These are small sticky padsthat are placed??on your chest. They record your heart rate and rhythm. ??? Blood pressure cuff. This reads your blood pressure. ?? Risks and possible complications General anesthesia has some risks. These include: ??? Breathing problems ??? Upset stomach (nausea)and vomiting ??? Sore throat or hoarseness (usually temporary) ??? Allergic reaction to the anesthetic ??? Irregular heartbeat (rare) ??? Cardiac arrest (rare) ?? Anesthesia safety ??? Follow any directions you're given for not eating or drinking before your procedure. ??? Tell your healthcare provider what medicines??you take. This includes prescription and dmxr-thm-utluokr medicines. It also includes vitamins, herbs, and other supplements. You'll be asked when those were last taken. ??? Have a trusted adult drive you home after the procedure. ??? For thefirst 24 hours after your surgery: o Don't drive or use heavy equipment. o Don't make important decisions or sign legal documents. If important decisions or signing legal documents is necessary during the first 24 hours after surgery, have a trusted family member or spouse act on your behalf. o Don't drink alcohol. o Have??a responsible adult??stay with you.??They can watch for problems and help keep you safe. ?? Last Reviewed Date: 2023 ?? [employer]. All rights reserved. This information is not intended as a substitute for professional medical care. Always follow your healthcare professional's instructions. ?? EKG study * Event Display: ECG 12-Lead Authored Date: Please click on pdf link to open report * Event Display: ECG 12-Lead Authored Date: Ventricular Rate: 56 BPM Atrial Rate: 56 BPM P-R Interval: 148 ms QRS Duration: 86 ms Q-T Interval: 448 ms QTC Calculation(Bazett): 432 ms P [place]: 22 degrees R [place]: 96 degrees T [place]: 18 degrees Sinus bradycardia Rightward axis Low voltage QRS complexes in limb leads Nonspecific ST and T wave abnormality Abnormal ECG When compared with ECG of 25-JUL-2023 17:30, No significant change was found Confirmed by Raciel Rowell ([id number]) on 09/26/2023 9:06:42 AM [place]: Raciel Rowell Patient Care team information Care Team Personnel Name: Mignon Doran RN Position: [facility] SN RN Member Role: Primary Care Nurse Name: Bonny Bueno MD Position: [facility] Physician - Primary Care Member Role: PCP Address: Address: [address] [place], [place] [address] Name: Rajan Rossi RN, Ora Position: S RN Member Role: Primary Care Nurse Name: Emma Rizvi RN Position: [facility] RN Member Role: Primary Care Nurse Name: Pricilla Garcia RN Position: S RN Member Role: Primary Care Nurse Name: Idalia Dominique RN Position: S RN Member Role: Primary Care Nurse Name: Michelle Mejia RN Position: S RN Member Role: Primary Care Nurse Care Team Related Persons Name: YESSICA SMITH Address: home [address] [place] [address] Name: PAOLO DOMINIQUE Address: [place] [address]
--- OUTSIDE RECORDS SUMMARY | 2024-02-16 14:35 | XMS_ITS | Continuity of Care Document ---
Author Organization [facility] Address [address] [place] [address]- Care Team Providers Care Expander Machine Operator Name Role Phone Bonny Bueno MD Primary Care Physician Encounter [facility] Date(s): 10/02/23 - 11/01/23 [facility] [address] [place] [address]- [place] Allergies, Adverse Reactions, Alerts Substance Reaction Severity [...] 12/26/18 14:08:33 EDT, Route to Pharmacy Electronically, [id number], [facility]/pharmacy #[id number] Start Date: 12/26/18 Status: Ordered docusate sodium 100 mg oral capsule 100 mg, 1, capsule, By Mouth, Daily, # 30 capsule, Refills 0, Tot. Refills 0, Maintenance, 12/05/1914:56:56 EDT, Route to Pharmacy Electronically, [id number], [facility]/pharmacy #[id number] Start Date: 12/05/18 Status: Ordered Eliquis 5 [...] 12/26/18 14:08:43 EDT, Route to Pharmacy Electronically, [id number], [facility]/pharmacy #[id number] Start Date: 12/26/18 Status: Ordered latanoprost 0.005% [...] Maintenance,12/26/18 14:08:44 EDT, Route to Pharmacy Electronically, [id number], [facility]acy [id number] Start Date: 12/26/18 Status: Ordered Problem List Condition Confirmation Course Effective Dates Status H ealth Status Informant Paroxysmal Atrial fibrillation and flutter Confirmed Active Bipolar 1 disorder Confirmed Active Chronic lower back pain Confirmed Active Depression Confirmed Active History of Diverticulitis, status post partial colon resection Confirmed 2012 Active Diverticulitis of colon S/P partial colectomy 2009 Confirmed Active Glaucoma Confirmed Active HLD (hyperlipidemia) Confirmed Active 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 Obese class I Confirmed Active Open wound of left lower leg Confirmed Active OA (osteoarthritis) Confirmed Active Palpitations Confirmed Active Social History Social History Type Response Smoking Status Never (less than 100 in lifetime) entered on: 03/01/21 Sex Female Patient Care team information Care Team Personnel Name: Mignon Doran RN Position: [facility] RN Member Role: Primary Care Nurse Name: Bonny Bueno MD Position: [facility] Physician - Primary Care Member Role: PCP Address: Address: [address] [place] [address]- Name: Ora Salas RN Position: S RN Member Role: Primary Care Nurse Name: Emma Rizvi RN Position: S RN Member Role: Primary Care Nurse Name: Pricilla Garcia RN Position: S RN Member Role: Primary Care Nurse Name: Idalia Dominique RN Position: S RN Member Role: Primary Care Nurse Name: Michelle Mejia RN Position: S RN Member Role: Primary Care Nurse Care Team Related Persons Name: YESSICA SMITH Address: home [address] [place] [address] Name: PAOLO DOMINIQUE Address: home [address] [place] [address]
--- OUTSIDE RECORDS SUMMARY | 2024-02-16 14:35 | XMS_ITS | Continuity of Care Document ---
Author Organization [facility] Address [address] [place] [address]- Care Team Providers Care Clerical Support Specialist Name Role Phone Bonny Bueno MD Primary Care Physician Encounter [facility] Date(s): 12/04/23 - 01/03/24 [facility] [address] [place] [address]- Attending Physician: Chilango Woodward Admitting Physician: Chilango Woodward Referring Physician: Admtr, Ar8 Allergies, Adverse Reactions, Alerts Substance Reaction Severity [...] 12/26/18 14:08:33 EDT, Route to Pharmacy Electronically, [id number], [facility]/pharmacy #[id number] Start Date: 12/26/18 Status: Ordered docusate sodium 100 mg oral capsule 100 mg, 1, capsule, By Mouth, Daily, # 30 capsule, Refills 0, Tot. Refills 0, Maintenance, 12/05/1914:56:56 EDT, Route to Pharmacy Electronically, [id number], [facility]/pharmacy #[id number] Start Date: 12/05/18 Status: Ordered Eliquis 5 mg oral tablet 1 tablet = 5 mg, By Mouth, 2 times a day, 0 Refills, Maintenance, 09/26/23 7:56:00 EDT, Partial fill upon patient request if the prescription is for a schedule II opioid drug. Start Date: 09/26/23 Status: Ordered ezetimibe 10 mg oral tablet 1 tablet = 10 mg, By Mouth, Daily, 0 Refills, Maintenance, 09/26/23 7:56:00 EDT, Partial [...] 12/26/18 14:08:43 EDT, Route to Pharmacy Electronically, [id number], [facility]/pharmacy #[id number] Start Date: 12/26/18 Status: Ordered latanoprost [...] Ordered Repatha SureClick 140 mg/mL subcutaneous solution Every 14 days, MONDAYS, 0 Refills, Maintenance, 09/26/23 7:56:00 EDT, Partial fill upon patient request if the prescription is for a schedule II opioid drug. Start Date: 09/26/23 Status: Ordered traZODone 100 mg oral tablet 100 mg, 1, tablet, By Mouth, Daily at bedtime, # 30 tablet, Refills 1, Tot. Refills 1, Maintenance,12/26/18 14:08:44 EDT, Route to Pharmacy Electronically, [id number], [facility]/pharmacy #[id number] Start Date: 12/26/18 Status: Ordered Problem [...] in lifetime) entered on: 03/01/21 Sex Female Hospital Consult note * Event Display: Inpatient Consult Note, Non- Authored Date: Cardiology * Event Display: Holter Monitor Non Authored Date: * Event Display: EKG Non Authored Date: * Event Display: Cardiology Office Note, Non- Authored Date: * Event Display: Non Cardiovascular Results Authored Date: Radiology * Event Display: X-Ray Chest, Non- Authored Date: Patient Care team information Care Team Personnel Name: Mignon Doran RN Position: [facility] SN RN Member Role: Primary Care Nurse Name: Bonny Bueno MD Position: [facility] Physician - Primary Care Member Role: PCP Address: Address: [address] [place] [address]- Name: Ora Salas RN Position: [facility] RN Member Role: Primary Care Nurse Name: Emma Rizvi RN Position: [facility] RN Member Role: Primary Care Nurse Name: Pricilla Garcia RN Position: [facility] RN Member Role: Primary Care Nurse Name: Idalia Dominique RN Position: [facility] RN Member Role: Primary Care Nurse Name: Michelle Mejia RN Position: [facility] RN Member Role: Primary Care Nurse Care Team Related Persons Name: YESSICA SMITH Address: [address] [place] [address] Name: PAOLO DOMINIQUE Address: [address] [place] [address]
== END 2024-02-15 09:41 | disposition home or self-care (01) ==
PROVIDERS: PCP Internal Medicine; Visit Provider Physician Assistant
DX: J06.9 Acute upper respiratory infection, unspecified (principal)

== ENCOUNTER 2024-02-15 09:21 | Outpatient (REF) | payer MEDICARE, SELFPAY ==
--- NOTE | ~2024-02-15 | XR_ITS ---
EXAMINATION: XR CHEST CLINICAL INFORMATION: R05.9 - Cough, unspecified COMPARISON: Chest radiograph 05/22/2023. TECHNIQUE: 2 views of the chest were obtained. FINDINGS: The lungs are adequately expanded. Mild biapical scarring. No focal consolidation. No pleural effusions or pneumothorax. The cardiac mediastinal silhouette is within normal limits. Mild degenerative changes of the thoracic spine. No acute osseous abnormality. XR/XR chest 2V IMPRESSION: No acute pulmonary disease. Electronically signed by: Loi Flores MD 02/15/2024 11:50 AM BRYAN
== END 2024-02-15 09:22 | disposition home or self-care (01) ==
LOC: HO.HMGCX 09:21
PROVIDERS: PCP Internal Medicine; Visit Provider Physician Assistant
DX: R05.9 Cough, unspecified (principal)
CPT/HCPCS: 71046

== ENCOUNTER 2024-03-05 11:22 | Outpatient (AMB) | payer MEDICARE, SELFPAY ==
[2024-03-05 11:29] VITALS: BP 120/76; PULSE 66; O2SAT 94; BMI 30.4
--- NOTE | 2024-03-05 11:29 | A.OFFPC_ITS ---
Vital Signs 03/05/24 11:29 Height 5 ft 8 in Weight 200 lb BMI 30.4 BP 120/76 Blood Pressure Location Lt brachial Position Sitting Pulse 66 Pulse Source Pulse Oximeter Pulse Oximetry (%) 94 Oxygen Delivery Method Room Air Intake Visit Reasons: Annual PE Intake Note: Pt is here today for PE. Pt states that her last pap test was done 2 years ago. Allergies oxycodone [From PERCODAN] Allergy (Intermediate, Verified 03/05/24 11:50) HIVES rosuvastatin [From Crestor] Adverse Reaction (Intermediate, Verified 03/05/24 11:50) body aches Hydrocodone-Acetaminophen Adverse Reaction (Unknown, Uncoded 03/05/24 11:50) nausea and vomiting Medication List - Last Reconciled 03/05/24 by Bonny Bueno MD acetaminophen (Acetaminophen Extra Strength) 1,000 mg PO DAILY PRN albuterol sulfate 90 mcg/actuation 2 inhalations inhalation Q6-8H PRN amoxicillin 2,000 mg (4 x 500 mg) PO .before dental visit PRN apixaban (Eliquis) 5 mg PO BID ascorbic acid (vitamin C) 1,000 mg PO DAILY cholecalciferol (vitamin D3) (Vitamin D3) 50 mcg PO DAILY docusate sodium 100 mg PO BEDTIME evolocumab (Repatha SureClick) 140 mg subcut Q2W 90 days ezetimibe (Zetia) 10 mg PO DAILY fluoxetine 20 mg PO DAILY hydroxyzine HCl 25 mg PO DAILY PRN ipratropium-albuterol 0.5 mg-3 mg(2.5 mg base)/3 mL 3 mL inhalation Q6-8H PRN lamotrigine 250 mg PO BEDTIME latanoprost 0.005% 1 drp ophthalmic (eye) BEDTIME metoprolol tartrate 50 mg PO BID ezmyzlbepsnc-bgvnjjzl-mgpaxf (Multivitamin 50 Plus tablet) 1 tab PO DAILY polyethylene glycol 3350 (Miralax) 17 grams PO DAILY trazodone 100 - 200 mg PO BEDTIME Tobacco use date assessed: 03/05/24 Fall risk assessment: No Falls in past year Last assessed Fall Risk: 03/05/24 Dental Screening Dental Screen Date: 03/05/24 Did you have a dental visit in the last 12 months?: Yes Did you have a dental problem in the last 6 months where you did not have access to dental care?: No Was dental information given to patient?: Patient has dentist HPI Annual PE HPI Details Patient presents for physical. She complains of persistent cough occasional wheezing on and off also at night for the last month since the upper respiratory infection. She has been using albuterol inhaler daily with temporary relief. Patient denies sputum production fever chills pleurisy PFSH Medical History (Updated 03/05/24 @ 12:59 by Bonny Bueno MD) Hypertension Asthma Anxiety Chronic low back pain On anticoagulant therapy On beta francisco at home PAF (paroxysmal atrial fibrillation) Surgical History H/O cardiac radiofrequency ablation H/O colonoscopy History of evacuation of hematoma History of bowel resection History of knee surgery Family History Father Myocardial infarction CVD (cardiovascular disease) Mother Mental health disorder Sister Mental health disorder Social History Household Members: Spouse, Family and Children 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:: , 2 children, 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, 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 other at home: Yes Do you presently have visiting nurse or other home services: No Alcohol intake: current Alcohol intake frequency: holidays/special occasions only Patient Tobacco Use Status: Never used Tobacco e-Cigarette/Vaping Use: Never Used service: No Current occupational status: retired 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 Current occupational exposures/hazards: No Cognitive needs: No Hearing needs: No Vision needs: Yes Questionnaire Thrive Questionnaire Date Thrive assessed: 11/01/23 I am a: Patient What is your living situation today?: I have a steady place to live Within the past 12 months, did the food you bought not last and you didn't have the money to get more?: Never true Within the past 12 months, did you worry whether your food would run out before you got money to buy more?: Never true Do you have trouble paying for medicines?: No Do you have trouble getting transportation to medical appointments?: No Do you have trouble paying your heating and electricity bill?: No Do you have trouble taking care of your child, family member or friend?: Yes Do you have trouble with day-to-day activities such as bathing, preparing meals, shopping, managing finances, etc.?: No Are you currently unemployed and looking for a job?: No Are you interested in more education?: No Please select the resources that you would like help with: None Currently or been in a relationship where the following occur: No concerns reported THRIVE Score: 0 MERLIN-7 AMB Questionnaire MERLIN-7 Date MERLIN - 7 assessed: 11/01/23 Source: Developed by Drs. Trip Miller, Susan Hewitt, Raman Gibson and colleagues, with an educational celio from [employer]. Review of Systems Const All systems reviewed & are unremarkable except as noted in HPI and below Eyes Reports no additional complaints ENT Reports no additional complaints Card Reports no additional complaints Resp Reports no additional complaints GI Reports no additional complaints Reports no additional complaints Physical exam (Primary Care) Vital Signs: Last Vital Signs Pulse 66 03/05/24 11:29 BP 120/76 03/05/24 11:29 Pulse Ox 94 03/05/24 11:29 Oxygen Delivery Method Room Air 03/05/24 11:29 BMI result Body Mass Index 30.4 Tobacco/Smoking Status: Tobacco use Status Tobacco use date assessed 03/05/24 03/05/24 11:53 Patient Tobacco Use Status Never used Tobacco 03/05/24 11:29 e-Cigarette/Vaping Use Never Used 03/05/24 11:29 Thrive Assessment: Date of Thrive Assessment Date Thrive assessed 11/01/23 03/05/24 11:29 Currently or been in a relationship where the following occur: No concerns reported Const General: no acute distress HENMT Head: Yes normal to inspection Ears: hearing grossly normal bilaterally Face and sinus: Yes normal facial exam Mouth: Normal oral and palatal mucosa present Throat: Yes posterior oropharynx normal Neck Neck: Yes no lymphadenopathy and Yes supple Resp Effort & Inspection: normal respiratory effort Auscultation: clear to auscultation bilaterally Cardio Rhythm: regular rhythm Heart sounds: S1 normal heart sound present and S2 normal heart sound present GI Inspection: Yes normal to inspection Palpation (GI): Soft to palpation Percussion: Yes normal to percussion Auscultation: normal bowel sounds Coding Level of Care Code Est Pt Prev Care >65y(810[address]) Diagnoses PAF (paroxysmal atrial fibrillation) I48.0 Anxiety and depression F41.9; F32.A Annual physical exam Z00.00 Plantar fasciitis of right foot M72.2 Asthma J45.909 Assessment & Plan Assessment & Plan (1) PAF (paroxysmal atrial fibrillation): Comment: s/p catheter ablation 09/2023 [facility] Code(s): I48.0 - Paroxysmal atrial fibrillation Category: Medical Plan: Continue Eliquis and beta francisco follow-up with the Cardiology (2) Anxiety and depression: Comment: f/u with psychiatrist, 2 suicidal attempts 2013, Code(s): F41.9 - Anxiety disorder, unspecified; F32.A - Depression, unspecified Category: Medical Plan: Continue current medications follow-up with psychiatry (3) Annual physical exam: Code(s): Z00.00 - Encounter for general adult medical examination without abnormal findings Category: Medical Plan: Well-balanced diet regular physical activity discussed with the patient she is up-to-date with a mammogram will be referred to GI for colonoscopy. (4) Plantar fasciitis of right foot: Code(s): M72.2 - Plantar fascial fibromatosis Category: Medical Plan: Patient was giving home exercises for plantar fasciitis and has an appointment with meat hostess in March (5) Asthma: Comment: Exercise induced per patient Code(s): J45.909 - Unspecified asthma, uncomplicated Category: Medical Plan: Start Breo 100/25 continue albuterol as needed follow-up in 1 month Orders: Referrals Gastroenterology Referral Z00.00 - Encounter for general adult medical examination without abnormal findings Medications: New Breo Ellipta 100-25 mcg/dose (fluticasone furoate-vilanterol) 1 inh inhalation DAILY 60 ea 3RF NS
--- OUTSIDE RECORDS SUMMARY | 2024-03-06 20:42 | XMS_ITS | Patient Health Record ---
[facility] [place] Address [address] [place] [address] Care Team Providers Care Tube Sizer Operator Name Role Phone Bonny Bueno MD Primary Care Provider Laura Quintana Unavailable [phone] Allergies Allergen (clinical drug ingredient) Drug/Non Drug Allergy documented on EMR Reaction Allergy Type Onset Date Status ibuprofen Advil Unknown Drug Allergy Active aspirin Aspirin Unknown Drug Allergy Active rosuvastatin Crestor Unknown Drug Allergy Acti ve Percodan Unknown Drug Allergy Active codeine Codeine Unknown Drug Allergy Active Reason For Referral Diagnosis 1 Pain in unspecified foot (M79.673) Referring Provider First Name Bonny Referring Provider Last Name Myles Referred Organization [facility] Referred Provider Laura Wheeler Referred Address [address] [facility],[place], [place],[address], Referred Provider Specialty Podiatry Referral Priority Routine Social History Tobacco Use: Social History Observation Description Date Details (start date - stop date) Never Smoker NA - NA Tobacco use other than smoking: Question Answer Notes Are you an other tobacco user? No Tobacco Control (Standard) Question Answer Notes Tobacco use: Nonsmoker Additional Findings: Tobacco non-user Current no nsmoker AUDIT-C (Standard) Question Answer Notes Did you have a drink contain ing alcohol in the past year? Yes How often did you have six o r more drinks on one occasion in the past year? Less than monthly (1 point) How many drinks did you have on a typical day when you were drinking in the past year? 1 or 2 drinks (0 point) How often did you have a dri nk containing alcohol in the past year? Monthly or less (1 point) Points 2 Interpretation Negative Encounters Encounter Location Date Provider Diagnosis [facility] [place] [address] [place] [address] 02/21/2024 Laura Wheeler Plan Of Treatment Next Appt Details Provider Name:Laura hernández, 04/04/2024 09:30:00 AM, [address] [place], [address], Insurance Providers Payer Name Payer Address Payer Phone Subscriber Number Group Number Insured Name Patient Relationship to Insured Coverage Start Date Coverage End Date Medicare [facility] [address] [place] [address] [id number] Rowena Page Self - patient is the insured BlueCare 65 Medicare Preferred [address] [place] [address] [id number] 3 Rowena Page Self - patient is the insured Medical (General) History Medical History History ICD Code Anxiety asthma CAD (Cholesterol) Cataracts covid-19 Depression Diverticulosis Glaucoma Heart disease High Blood Pressure Chicken pox Joint implants/screws Surgical History Surgery Date(Month/Year) cardiac ablation bilateral knee replacement bowel resection
--- OUTSIDE RECORDS SUMMARY | 2024-03-06 20:42 | XMS_ITS ---
Author Organization [facility] Address [address] [place] [address] Care Team Providers Care Research Clerk Name Role Phone Bonny Bueno MD Primary Care Provider Laura Quintana [phone] REASON FOR VISIT [facility] Entered Encounters Encounter Location Date Provider Diagnosis [address] [address] 02/21/2024 Laura Wheeler Plan Of Treatment Next Appt Details Provider Name:Laura hernández, 04/04/2024 09:30:00 AM, [address] [place] [address], [id number], Progress Notes * Cristina DOMINIQUEOB: (68 yo F)Acc No.[id number]:02/21/2024 Patient:?Rowena DOMINIQUE :1955???Age:68 Y???Sex:Female Address:[address] [place] [address], [address] * true * Date:? Generated for Printi ng/Faxing/eTransmitting on:?03/06/2024 08:41 PM EST
== END 2024-03-05 12:37 | disposition home or self-care (01) ==
PROVIDERS: PCP Internal Medicine; Visit Provider Internal Medicine
DX: I48.0 Paroxysmal atrial fibrillation (principal); F41.9 Anxiety disorder, unspecified; F32.A Depression, unspecified; Z00.00 Encounter for general adult medical examination without abnormal findings; M72.2 Plantar fascial fibromatosis; J45.909 Unspecified asthma, uncomplicated

== ENCOUNTER → 2024-03-05 11:22 | Outpatient (BNVA) | payer MEDICARE, SELFPAY | PROVIDERS: PCP Internal Medicine; Visit Provider Internal Medicine | DX: Z00.00 Encounter for general adult medical examination without abnormal findings (principal); I48.0 Paroxysmal atrial fibrillation; F41.9 Anxiety disorder, unspecified; F32.A Depression, unspecified; J45.909 Unspecified asthma, uncomplicated | CPT/HCPCS: 99397 ==

== ENCOUNTER 2024-03-25 09:24 | Outpatient (AMB) | payer MEDICARE, SELFPAY ==
--- OUTSIDE RECORDS SUMMARY | 2024-03-25 09:26 | XMS_ITS | Patient Health Record ---
[facility] [place] Address [address] [place] [address] Care Team Providers Care Fence Erector Name Role Phone Bonny Bueno MD Primary Care Provider Laura Quintana Unavailable [phone] Allergies Allergen (clinical drug ingredient) Drug/Non Drug [...] Referring Provider Last Name Myles Referred Organization [facility] Referred Provider Laura Wheeler Referred Address [address] [facility],[place], [place],[address], Referred Provider Specialty Podiatry Referral Priority Routine [...] Negative Encounters Encounter Location Date Provider Diagnosis [facility] [place] [address] [place] [address] 02/21/2024 Laura Wheeler Plan Of Treatment Next Appt Details Provider Name:Laura hernández, 04/04/2024 09:30:00 AM, [address] [place], [address], Insurance Providers Payer Name Payer Address Payer Phone Subscriber Number Group Number Insured Name Patient Relationship to Insured Coverage Start Date Coverage End Date Medicare [facility] [address] [place] [address] [id number] Rowena Page Self - patient is the insured BlueCare 65 Medicare Preferred [address] [place] [address] [id number] 3 Rowena Page Self - patient is the insured Medical (General) History Medical History History ICD Code Anxiety asthma CAD (Cholesterol) Cataracts covid-19 Depression Diverticulosis Glaucoma Heart disease High Blood Pressure Chicken pox Joint implants/screws Surgical History Surgery Date(Month/Year) cardiac ablation bilateral knee replacement bowel resection
--- NOTE | 2024-03-25 10:03 | AM.OFFWIN_ITS ---
Intake Vital Signs 03/25/24 10:07 Height 5 ft 8 in Weight 206 lb BMI 31.3 BP 130/90 H Blood Pressure Location Rt brachial Position Sitting Pulse 78 Pulse Source Pulse Oximeter Temp 97.5 F Temp Source Oral Pulse Oximetry (%) 94 Oxygen Delivery Method Room Air Intake Visit Reasons: EP-cough, rt ear pain, nasal congestion Intake Note: Patient here for cough, righ ear pain, congestion and SOB that has been present for about 10 days. Patient Tobacco Use Status: Never used Tobacco Allergies oxycodone [From PERCODAN] Allergy (Intermediate, Verified 03/25/24 10:08) HIVES rosuvastatin [From Crestor] Adverse Reaction (Intermediate, Verified 03/25/24 10:08) body aches Hydrocodone-Acetaminophen Adverse Reaction (Unknown, Uncoded 03/25/24 10:08) nausea and vomiting Do you need a note to return to daycare/school/sports/work: No HPI HPI Comments History of Present Illness Details History - The patient is a 68-year-old female pr esenting with cough, ear pain, and respiratory symptoms. - Symptoms commenced 10 days ago and beg an with a runny nose, evolving into a persistent cough and nasal congestion. - Notable nasal discharge is tenacious a nd yellow. - She experiences right ear pain and blo ckage, notably red and potentially infected. - She has a known history of asthma, gerson ding to an increased use of nebulizers. - Previous COVID testing was negative, a nd home contacts show no significant illness beyond minor cold symptoms. Physical Exam General: Cooperative, healthy appearing, comfortable and no acute distress Orientation/consciousness: Patient oriented x3 Limitations: No limitations Head: Normal to inspection Ears: Right ear TM with erythema, edema and purulent effusion behind TM, left ear sliver of purulence behind TM Nose: Normal external nose present, Normal nares present and No nasal discharge present Face and sinus: Normal facial exam and Yes sinuses nontender Mouth: Normal oral and palatal mucosa present and moist mucous membranes Throat: Yes tonsils normal, Yes uvula midline. Posterior oropharynx erythema Eyes: Appearance normal, both eyes and all related structures Neck: Normal visual inspection Respiratory: Clear but dim to auscultation bilaterally. Normal respiratory effort, able to speak in complete sentences, Actively coughing, no respiratory distress, not tachypneic, no tripod positioning and no use of accessory muscles Cardiovascular: Regular rate and rhythm. Normal S1 and S2 Skin: No rashes or lesions noted Neuro: Patient oriented x3 Extremities: Normal to inspection and Yes no clubbing, cyanosis or edema 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, 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, 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 Are you a primary manager intensive care to a significant other at home: Yes Do you presently have visiting nurse or other home services: No Alcohol intake: current Alcohol intake frequency: holidays/special occasions only Patient Tobacco Use Status: Never used Tobacco e-Cigarette/Vaping Use: Never Used service: No Current occupational status: retired 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 Current occupational exposures/hazards: No Cognitive needs: No Hearing needs: No Vision needs: Yes Review of Systems Const All systems reviewed & are unremarkable except as noted in HPI and below Physical Exam Vital Signs: Last Vital Signs Temp 97.5 F 03/25/24 10:07 Pulse 78 03/25/24 10:07 BP 130/90 H 03/25/24 10:07 Pulse Ox 94 03/25/24 10:07 Oxygen Delivery Method Room Air 03/25/24 10:07 BMI result Body Mass Index 31.3 Assessment & Plan Assessment & Plan (1) Lower respiratory infection (e.g., bronchitis, pneumonia, pneumonitis, pulmonitis): Code(s): J22 - Unspecified acute lower respiratory infection Plan: The plan for managing the patient's respiratory symptoms and ear infection involves a prednisone course at 20 mg daily for five days to mitigate asthma effects. Increasing DuoNebulizer usage to three times daily is recommended for better symptom management. For bacterial coverage, prescriptions include Augmentin for the ear infection and a Z-Venkata for broader bacterial concerns. A chest x-ray is advised to exclude any possibility of pneumonia, establishing a reference point for potential future concerns. The patient should abstain from hydroxyzine while on the Z-Venkata to prevent adverse interactions. Advised rest. Patient was informed and verbally consented to the use of an ambient scribe for clinic note documentation during this visit (2) Otitis media of right ear: Code(s): H66.91 - Otitis media, unspecified, right ear Qualifiers: Otitis media type: suppurative Chronicity: acute Recurrence: recurrent Spontaneous tympanic membrane rupture: without spontaneous rupture Qualified Code(s): H66.004 - Acute suppurative otitis media without spontaneous rupture of ear drum, recurrent, right ear Plan: as above Orders: Orders XR chest 2V Today R05.9 - Cough, unspecified Medications: New prednisone 20 mg PO QAM 5 tabs 0RF amoxicillin-pot clavulanate 875-125 mg 1 tab PO Q12H 10 tabs 0RF azithromycin For 250 mg dose pack: take 500 mg today (day 1), then 250 mg for 4 days (days 2-5) orally; 6 tabs 0RF Coding Level of Care Code Est Pt Level 4 (71543) Diagnoses Lower respiratory infection (e.g., bronchitis, pneumonia, pneumonitis, pulmonitis) J22 Recurrent acute suppurative otitis media of right ear without spontaneous rupture of tympanic membrane H66.004 Otitis media type: suppurative Chronicity: acute Recurrence: recurrent Spontaneous tympanic membrane rupture: without spontaneous rupture
[2024-03-25 10:07] VITALS: BP 130/90; PULSE 78; TEMP 36.4; O2SAT 94; BMI 31.3
== END 2024-03-25 10:40 | disposition home or self-care (01) ==
PROVIDERS: PCP Internal Medicine; Visit Provider Physician Assistant
DX: J22 Unspecified acute lower respiratory infection (principal); H66.004 Acute suppurative otitis media without spontaneous rupture of ear drum, recurrent, right ear

== ENCOUNTER 2024-03-25 09:24 | Outpatient (REF) | payer MEDICARE, SELFPAY ==
--- NOTE | ~2024-03-25 | XR_ITS ---
EXAMINATION: XR CHEST CLINICAL INFORMATION: R05.9 - Cough, unspecified COMPARISON: Chest x-ray 02/15/2024. TECHNIQUE: 2 views of the chest were obtained. FINDINGS: The lungs are well-expanded and clear acute process. Heart size and pulmonary vascularity is normal. There is mild bilateral apical pleural thickening. No gross bony abnormality seen. XR/XR chest 2V IMPRESSION: Unremarkable chest examination. Electronically signed by: Palomo Boone MD 03/25/2024 11:27 AM BRYAN
== END 2024-03-25 09:25 | disposition home or self-care (01) ==
LOC: HO.HMGCX 09:24
PROVIDERS: PCP Internal Medicine; Visit Provider Physician Assistant
DX: J22 Unspecified acute lower respiratory infection (principal); H66.004 Acute suppurative otitis media without spontaneous rupture of ear drum, recurrent, right ear; R05.9 Cough, unspecified
CPT/HCPCS: 71046; 99212

== ENCOUNTER → 2024-03-25 10:29 | Outpatient (BNV) | payer MEDICARE, SELFPAY | PROVIDERS: PCP Internal Medicine; Visit Provider Radiology Diagnostic Radiology | DX: R05.9 Cough, unspecified (principal) | CPT/HCPCS: 71046 ==

== ENCOUNTER 2024-04-17 08:59 | Outpatient (AMB) | payer MEDICARE, SELFPAY ==
[2024-04-17 09:02] VITALS: BP 124/70; PULSE 64; O2SAT 96; BMI 31.3
--- NOTE | 2024-04-17 09:02 | MHC.PC.OV ---
Vital Signs 04/17/24 09:02 Height 5 ft 8 in Weight 206 lb BMI 31.3 BP 124/70 Blood Pressure Location Lt brachial Position Sitting Pulse 64 Pulse Source Pulse Oximeter Pulse Oximetry (%) 96 Oxygen Delivery Method Room Air Intake Visit Reasons: 1 months f/up Intake Note: Pt is here today for 1 month follow up visit. Allergies oxycodone [From PERCODAN] Allergy (Intermediate, Verified 04/17/24 09:04) HIVES rosuvastatin [From Crestor] Adverse Reaction (Intermediate, Verified 04/17/24 09:04) body aches Hydrocodone-Acetaminophen Adverse Reaction (Unknown, Uncoded 04/17/24 09:04) nausea and vomiting Tobacco use date assessed: 04/17/24 Fall risk assessment: No Falls in past year Last assessed Fall Risk: 04/17/24 Dental Screening Dental Screen Date: 04/17/24 Did you have a dental visit in the last 12 months?: Yes Did you have a dental problem in the last 6 months where you did not have access to dental care?: No Was dental information given to patient?: Patient has dentist HPI 1 months f/up HPI Details Patient presents for the follow-up of chronic asthma controlled on Breo. Paroxysmal AFib is stable metoprolol and anticoagulated on Eliquis. Patient had upper respiratory infection treated with Augmentin Z-Venkata and prednisone 2 weeks ago and her symptoms resolved. 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, 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, 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 Are you a primary healthcare corporate account director to a significant other at home: Yes Do you presently have visiting nurse or other home services: No Alcohol intake: current Alcohol intake frequency: holidays/special occasions only Patient Tobacco Use Status: Never used Tobacco e-Cigarette/Vaping Use: Never Used service: No Current occupational status: retired 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 1. Little interest or pleasure in doing things: not at all 2. Feeling down, depressed, or hopeless: not at all 3. Trouble falling or staying asleep, or sleeping too much: not at all 4. Feeling tired or having little energy: not at all 5. Poor appetite or overeating: not at all 6. Feeling bad about yourself - or that you are a failure or have let yourself or your family down: not at all 7. Trouble concentrating on things, such as reading the newspaper or watching television: not at all 8. Moving or speaking so slowly that other people could have noticed. Or the opposite - being so fidgety or restless that you have been moving around a lot more than usual: not at all 9. Thoughts that you would be better off or of hurting yourself in some way: not at all Total score: 0 Depression Screening Interpretation: Negative Depression Screening Done: Yes 17847 - PHQ-9 Billing: Yes Source: Developed by Drs. Trip Miller, Susan Hewitt, Raman Gibson and colleagues, with an educational celio from [employer]. Thrive Questionnaire Date Thrive assessed: 04/10/24 I am a: Patient What is your living situation today?: I have a steady place to live Within the past 12 months, did the food you bought not last and you didn't have the money to get more?: Never true Within the past 12 months, did you worry whether your food would run out before you got money to buy more?: Never true Do you have trouble paying for medicines?: No Do you have trouble getting transportation to medical appointments?: No Do you have trouble paying your heating and electricity bill?: No Do you have trouble taking care of your child, family member or friend?: No Do you have trouble with day-to-day activities such as bathing, preparing meals, shopping, managing finances, etc.?: No Are you currently unemployed and looking for a job?: No Are you interested in more education?: No Please select the resources that you would like help with: None Currently or been in a relationship where the following occur: No concerns reported THRIVE Score: 0 AUDIT C Alcohol Use Questionnaire (AUDIT-C) 1. How often do you have a drink containing alcohol?: 2-4 times a month 2. How many drinks containing alcohol do you have on a typical day when you are drinking?: 1 or 2 3. How often do you have six or more drinks on one occasion?: Never Total Score: 2 MERLIN-7 AMB Questionnaire MERLIN-7 Date MERLIN - 7 assessed: 11/01/23 Feeling nervous, anxious, or on edge: 1 = Several days Not being able to stop or control worryin = Nearly every day Worrying too much about different things: 0 = Not at all Trouble relaxin = Not at all Being so restless that it is hard to sit still: 0 = Not at all Becoming easily annoyed or irritable: 0 = Not at all Feeling afraid as if something awful might happen: 0 = Not at all Total MERLIN-7 score (0-4 normal; 5-9 mild; 10-14 moderate; 15-21 severe): 4 Source: Developed by Drs. Trip Miller, Susan Hewitt, Raman Gibson and colleagues, with an educational celio from [employer]. Review of Systems Const All systems reviewed & are unremarkable except as noted in HPI and below Eyes Reports no additional complaints ENT Reports no additional complaints Card Reports no additional complaints Resp Reports no additional complaints GI Reports no additional complaints Reports no additional complaints Physical exam (Primary Care) Vital Signs: Last Vital Signs Pulse 64 04/17/24 09:02 BP 124/70 04/17/24 09:02 Pulse Ox 96 04/17/24 09:02 Oxygen Delivery Method Room Air 04/17/24 09:02 BMI result Body Mass Index 31.3 Tobacco/Smoking Status: Tobacco use Status Tobacco use date assessed 04/17/24 04/17/24 09:07 Patient Tobacco Use Status Never used Tobacco 04/17/24 09:07 e-Cigarette/Vaping Use Never Used 04/17/24 09:07 PHQ-9: PHQ-9 Score PHQ-9: Total score 0 04/17/24 09:07 Depression Screening Interpretation: Negative Thrive Assessment: Date of Thrive Assessment Date Thrive assessed 04/10/24 04/17/24 09:07 Currently or been in a relationship where the following occur: No concerns reported Const General: no acute distress HENMT Head: Yes normal to inspection Face and sinus: Yes normal facial exam Throat: Yes posterior oropharynx normal Neck Neck: Yes no lymphadenopathy and Yes supple Resp Effort & Inspection: normal respiratory effort Auscultation: clear to auscultation bilaterally Cardio Rhythm: regular rhythm Heart sounds: S1 normal heart sound present and S2 normal heart sound present GI Inspection: Yes normal to inspection Palpation (GI): Soft to palpation Coding Level of Care Code Est Pt Level 4 (51541) Diagnoses Hyperlipidemia E78.5 Vitamin D deficiency E55.9 Vitamin B 12 deficiency E53.8 PAF (paroxysmal atrial fibrillation) I48.0 Asthma J45.909 Additional Codes PHQ-9 - 56475 - PHQ-9 Billing: Yes ([id number]) Assessment & Plan Assessment & Plan (1) Hyperlipidemia: Comment: Atorvastatin was stopped by Cardiology, intolerant to Crestor(myalgia), on Praluent since 08/16 Code(s): E78.5 - Hyperlipidemia, unspecified Category: Medical Plan: Continue current medications (2) Vitamin D deficiency: Code(s): E55.9 - Vitamin D deficiency, unspecified Category: Medical Plan: Continue vitamin-D supplement (3) Vitamin B 12 deficiency: Code(s): E53.8 - Deficiency of other specified B group vitamins Category: Medical Plan: Continue vitamin B12 (4) PAF (paroxysmal atrial fibrillation): Comment: s/p catheter ablation 09/2023 [facility] Code(s): I48.0 - Paroxysmal atrial fibrillation Category: Medical Plan: Continue metoprolol anticoagulation with Eliquis (5) Asthma: Comment: Exercise induced, controlled on Breo Code(s): J45.909 - Unspecified asthma, uncomplicated Category: Medical Plan: Continue Breo and albuterol p.r.n. follow-up in 6 months with a fasting labs before Orders: Orders Comprehensive [place]ison. Panel Fast 6 Months E53.8 - Deficiency of other specified B group vitamins, E55.9 - Vitamin D deficiency, unspecified, E78.5 - Hyperlipidemia, unspecified, I48.0 - Paroxysmal atrial fibrillation Lipid Panel 6 Months E53.8 - Deficiency of other specified B group vitamins, E55.9 - Vitamin D deficiency, unspecified, E78.5 - Hyperlipidemia, unspecified, I48.0 - Paroxysmal atrial fibrillation Complete Blood Count Auto Diff 6 Months E53.8 - Deficiency of other specified B group vitamins, E55.9 - Vitamin D deficiency, unspecified, E78.5 - Hyperlipidemia, unspecified, I48.0 - Paroxysmal atrial fibrillation Vitamin D 25-OH Total 6 Months E53.8 - Deficiency of other specified B group vitamins, E55.9 - Vitamin D deficiency, unspecified, E78.5 - Hyperlipidemia, unspecified, I48.0 - Paroxysmal atrial fibrillation Vitamin B12 and Folate 6 Months E53.8 - Deficiency of other specified B group vitamins Medications: Discontinued polyethylene glycol 3350 (Miralax) Discontinued Reason: Duplicate 17 grams PO DAILY 510 grams 2RF
== END 2024-04-17 09:33 | disposition home or self-care (01) ==
PROVIDERS: PCP Internal Medicine; Visit Provider Internal Medicine
DX: E78.5 Hyperlipidemia, unspecified (principal); E55.9 Vitamin D deficiency, unspecified; E53.8 Deficiency of other specified B group vitamins; I48.0 Paroxysmal atrial fibrillation; J45.909 Unspecified asthma, uncomplicated

== ENCOUNTER → 2024-04-17 08:59 | Outpatient (BNVA) | payer MEDICARE, SELFPAY | PROVIDERS: PCP Internal Medicine; Visit Provider Internal Medicine | DX: E78.5 Hyperlipidemia, unspecified (principal); E55.9 Vitamin D deficiency, unspecified; E53.8 Deficiency of other specified B group vitamins; I48.0 Paroxysmal atrial fibrillation; J45.909 Unspecified asthma, uncomplicated | CPT/HCPCS: 96127; 99212 ==

== ENCOUNTER 2024-05-07 13:43 | Observation (INO) | payer MEDICARE, SELFPAY ==
--- NOTE | ~2024-05-07 | CT_ITS ---
EXAMINATION: CT HEAD WITHOUT CONTRAST CLINICAL INFORMATION: fall. hit head COMPARISON: None available. TECHNIQUE: Contiguous axial imaging was performed from the skull base to vertex without intravenous administration of contrast. This CT examination was performed using dose optimization techniques as appropriate, variously including the following: *Automated exposure control *Adjustment of mA and/or kV according to patient size (this includes techniques or standardized protocols for targeted exams where dose is matched to indication/reason for exam; i.e. extremities or head) *Use of iterative reconstruction technique DLP: 660 mGy-cm FINDINGS: Bony calvarium is intact. Skull base is intact. No hematoma in the intraconal or extraconal compartments of the orbits. No acute intracranial hemorrhage, mass effect, midline shift, hydrocephalus or herniation. Isbell-white matter differentiation is normal. Posterior cranial fossa contents demonstrated no acute intracranial hemorrhage or mass effect. Sellar/suprasellar region demonstrated no gross lesions. Craniocervical junction is intact. Calcified plaques in the cavernous supraclinoid segments both ICA and V4 segments of the vertebral arteries.. Polypoid mucosal thickening of the ethmoid air cells and maxillary sinuses. Poor pneumatization frontal sinuses. Tympanic cavities and mastoid air cells are aerated. Mucosal thickening right sphenoid sinus. CT/CT head/brain wo IV con IMPRESSION: No acute fracture, bony calvarium. No acute intracranial hemorrhage. Polypoid paranasal sinus disease. Atherosclerosis disease, ICAs and V4 segments. Electronically signed by: Rafi Viera MD 05/07/2024 03:29 PM [facility] [place]
--- NOTE | ~2024-05-07 | CT_ITS ---
CLINICAL HISTORY: syncope, dizziness, 1. CTA angiography neck with IV contrast. 3D Postprocessing. 2. CTA angiography head with IV contrast. 3D Postprocessing. Comparison: CT/WA/SR - CT HEAD/BRAIN WO IV CON - 05/07/24 14:54 EST Findings: Standard three-vessel aortic arch anatomy. Widely patent common carotid arteries, carotid bifurcations, and extracranial internal carotid arteries. Codominant and widely patent cervical vertebral arteries. V4 segments and basilar artery appear normal. Cerebellar circulation and posterior cerebral arteries intact. Anterior and middle cerebral artery branches opacify normally No intracranial arterial aneurysm or vascular malformation. IMPRESSION: Normal CTA head and neck exam. This document has been electronically signed by: Sukh Martinez MD on 05/07/2024 23:57:31
--- NOTE | ~2024-05-07 | CT_ITS ---
EXAMINATION: CT CERVICAL SPINE WITHOUT CONTRAST CLINICAL INFORMATION: Status post fall. COMPARISON: None available. TECHNIQUE: Contiguous axial images through the cervical spine using 3 mm collimation with bone and soft tissue algorithm. Sagittal and coronal reformatted images acquired. This CT examination was performed using dose optimization techniques as appropriate, variously including the following: *Automated exposure control *Adjustment of mA and/or kV according to patient size (this includes techniques or standardized protocols for targeted exams where dose is matched to indication/reason for exam; i.e. extremities or head) *Use of iterative reconstruction technique. DLP: 482 mGy centimeter. FINDINGS: Craniocervical junction is intact. Degenerative changes in the periodontal C1 region. C1 is intact. C2 is intact. C3 is intact. C4 is intact. C5 is intact. C6 is intact. C7 is intact. Multilevel marginal osteophyte formation and endplate sclerosis and irregularity from C3 to T1. Grade 1 anterolisthesis C5-6, C4-5 likely degenerative. Incomplete ankylosis C2-3. Incomplete ankylosis of the right C2-3 facet joints. Central spinal canal narrowing at C6-7 likely degenerative in nature. No gross prevertebral compartment hematoma. Tympanic cavities and mastoid cells are aerated. Bilateral apical lung scarring. CT/CT cervical spine wo IV con IMPRESSION: Multilevel cervical spondylosis C3- T1 more conspicuous at C6-7 without acute fracture or gross trauma-related listhesis. If patient's symptoms persist recommend noncontrast MRI cervical spine. Fleischner guidelines were followed. Electronically signed by: Rafi Viera MD 05/07/2024 03:38 PM [facility]
[2024-05-07 14:42] VITALS: BP 151/77; PULSE 60; RESP 18; TEMP 35.9; O2SAT 94; BMI 31.2
--- NOTE | 2024-05-07 14:45 | ECG_ITS ---
Test Reason : SYNCOPE Blood Pressure : */* mmHG Vent. Rate : 60 BPM Atrial Rate : 60 BPM P-R Int : 142 ms QRS Dur : 88 ms QT Int : 400 ms P-R-T Axes : 45 94 37 degrees QTcB Int : 400 ms Normal sinus rhythm Rightward axis Pulmonary disease pattern Septal infarct , age undetermined Abnormal ECG When compared with ECG of 23-May-2023 08:21, QRS axis Shifted left QT has shortened Referred By: Mario Garrett Electronically Signed By: ALVIN GOMES MD
--- NOTE | 2024-05-07 14:47 | ED_ITS ---
HPI - General Adult General Chief complaint: Syncope Stated complaint: Fall 05/05 - hit head Time Seen by Provider: 05/07/24 21:08 Source: patient Mode of arrival: ambulatory Limitations: no limitations History of Present Illness ED Provider: Joy Lockhart NP HPI narrative: Patient is a 69-year-old female who presents emergency department for evaluation. Reports 2 days ago/11/2024 she getting ready for confucianist she went outside with her began walking down the stairs when down about 5 steps and she suddenly syncopized fell landing onto her left side reported loss consciousness. She denies any preceding/probable symptoms. She is anticoagulated on Eliquis due to atrial fibrillation, admits that she had an ablation in August of 2023 with an echocardiogram at time, is not certain whether she continues to have paroxysmal atrial fibrillation. She presents emergency department today for evaluation she is having persistent headache to the left side as well as left lateral neck pain, intermittent dizziness with ambulation and nausea. She also admits to a history of vertigo. She admits that she has had similar episodes in the past usually a couple times year she has since the fall lenses and subsequently falls. Currently she is denying dizziness, lightheadedness, chest pain, shortness of breath and palpitations, abdominal pain hematochezia, melena, history of VTE Related Data Home Medications ?Medication ?Instructions ?Recorded ?Confirmed lamotrigine 100 mg tablet 250 mg PO BEDTIME 10/01/20 05/09/24 latanoprost 0.005 % eye drops 1 drp ophthalmic (eye) BEDTIME 10/01/20 05/09/24 trazodone 100 mg tablet 100 - 200 mg PO BEDTIME Sleep 10/01/20 05/09/24 fluoxetine 20 mg capsule 20 mg PO DAILY 12/01/21 05/09/24 ascorbic acid (vitamin C) 500 mg 1,000 mg PO DAILY 06/02/22 05/09/24 capsule cholecalciferol (vitamin D3) 50 50 mcg PO DAILY 06/08/22 05/09/24 mcg (2,000 unit) capsule (Vitamin D3) [id number] 1 tab PO DAILY 06/08/22 05/09/24 tablet (Multivitamin 50 Plus tablet) acetaminophen 500 mg tablet 1,000 mg PO DAILY PRN Pain 09/12/23 05/09/24 (Acetaminophen Extra Strength) metoprolol tartrate 25 mg tablet 50 mg PO BID 01/24/24 05/09/24 evolocumab 140 mg/mL subcutaneous 140 mg subcut Q2W 05/08/24 05/09/24 pen injector (Nicko Mcginnis) hydroxyzine HCl 25 mg tablet 12.5 - 25 mg PO DAILY PRN Anxiety 05/08/24 05/09/24 Previous Rx's ?Medication ?Instructions ?Recorded docusate sodium 100 mg capsule 100 mg PO BEDTIME #90 caps 12/20/21 apixaban 5 mg tablet (Eliquis) 5 mg PO BID #180 tabs 08/01/23 ezetimibe 10 mg tablet (Zetia) 10 mg PO DAILY #90 tabs 09/12/23 Breo Ellipta 100 mcg-25 mcg/dose 1 inh inhalation DAILY #60 ea 03/05/24 powder for inhalation (fluticasone furoate-vilanterol) albuterol sulfate 90 mcg/actuation 2 inh inhalation Q6-8H PRN 03/26/24 aerosol inhaler shortness of breath or wheezing #8.5 grams Allergies Allergy/AdvReac Type Severity Reaction Status Date / Time oxycodone [From PERCODAN] Allergy Intermediate HIVES Verified 05/07/24 14:45 rosuvastatin [From Crestor] AdvReac Intermediate body aches Verified 05/07/24 14:45 Hydrocodone-Acetaminophen AdvReac Unknown nausea and Uncoded 04/17/24 09:04 vomiting Review of Systems 2 Review of Systems: Yes all other systems are reviewed and are negative PMFSH Past Medical History Attestation statement: The following information was validated with the patient. Source: old records reviewed Medical History Hypertension Asthma Anxiety Chronic low back pain On anticoagulant therapy On beta francisco at home PAF (paroxysmal atrial fibrillation) Surgical History H/O cardiac radiofrequency ablation H/O colonoscopy History of evacuation of hematoma History of bowel resection History of knee surgery Family History Family History Father Myocardial infarction CVD (cardiovascular disease) Mother Mental health disorder Sister Mental health disorder Social History Social History Household Members: Spouse, Family and Children 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:: , 2 children, 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, 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 Are you a primary care specialist to a significant other at home: Yes Do you presently have visiting nurse or other home services: No Alcohol intake: current Alcohol intake frequency: holidays/special occasions only Patient Tobacco Use Status: Never used Tobacco e-Cigarette/Vaping Use: Never Used service: No Current occupational status: retired 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 Current occupational exposures/hazards: No Cognitive needs: No Hearing needs: No Vision needs: Yes Physical Exam ED Vital Signs: Vital Signs - 24 hr 05/07/24 14:42 05/07/24 19:52 05/07/24 21:06 Temperature 96.6 F L 97.6 F 97.7 F Pulse Rate 60 60 60 Respiratory Rate 18 18 16 Blood Pressure 151/77 H 163/84 H 176/59 H Pulse Oximetry 94 95 97 Oxygen Delivery Method Room Air Room Air Room Air 05/07/24 22:19 05/07/24 22:19 05/07/24 22:19 Temperature Pulse Rate 60 61 63 Respiratory Rate Blood Pressure 155/74 H 153/89 H 164/90 H Pulse Oximetry Oxygen Delivery Method 05/07/24 22:28 05/08/24 02:16 Temperature 97.7 F 98.3 F Pulse Rate 60 Respiratory Rate 16 18 Blood Pressure 143/81 H Pulse Oximetry 94 97 Oxygen Delivery Method Room Air Room Air BMI result Body Mass Index 31.2 Appearance: Alert.?Oriented to person, place and time. No acute distress.?Normal affect. Head: Normocephalic, atraumatic Eyes: Pupils equal, round and reactive to light.? EOMI. No nystagmus. TM normal bilaterally. ENT: Pharynx normal.?? Neck: Normal inspection.? Neck supple.??Full range of motion. No rigidity. No midline cervical spine tenderness, step-offs, deformities. Tenderness upon palpation of the left paraspinal/trapezius muscles. CVS: Heart sounds normal. Normal heart rate and rhythm.? Pulses normal.?? Respiratory: No respiratory distress.? Lung sounds clear to auscultation bilaterally?? Abdomen: Soft and non-tender. Normoactive bowel sounds. Skin: Skin warm and dry.? Normal skin color.? ? Extremities: No lower extremity edema.? Neuro: Moves all extremities spontaneously. Sensation intact bilaterally. CN II- XII intact. No focal neuro deficits. Ambulates with normal steady gait. Course Course Course Narrative: RME: 69 yold female presents to the ED for fall/syncope that occurred two days and now presenting with worsening headache. labs, ekg, and head cT ordered. negative for any neuro deficitis. Reevaluation(s) Reevaluation #1: CT angio head and neck without acute pathology. Unclear etiology of syncope at this time, spoke with hospitalist, Dr. Riddle admission to medicine service and further evaluation. Patient agreeable to plan of care Medications Administered Discontinued Medications Generic Name Dose Route Start Last Admin Trade Name Freq PRN Reason Stop Dose Admin Acetaminophen 975 mg 05/07/24 23:23 05/07/24 23:49 Acetaminophen 325 Mg Tablet PO 05/07/24 23:24 975 mg ONCE ONE Administration Apixaban 5 mg 05/08/24 09:00 05/08/24 08:14 Apixaban 5 Mg Tablet PO 5 mg BID CHE Administration Sodium Chloride 1,000 mls @ 999 mls/hr 05/07/24 22:15 05/07/24 23:50 Ns IV 05/07/24 23:15 Infused .Q1H1M CHE Infusion Iohexol 70 ml 05/07/24 23:09 05/07/24 23:10 Iohexol 350 Mg/Ml 100 Ml Infus..Btl IV 05/07/24 23:10 70 ml ONCE ONE Administration Sodium Chloride 3 ml 05/08/24 08:00 05/08/24 08:14 0.9 % Sodium Chloride Flush 3 Ml Syringe IVFLUSH 3 ml QSHIFT CHE Administration Tramadol HCl 25 mg 05/08/24 08:29 05/08/24 08:48 Tramadol Hcl 50 Mg Tablet PO 05/08/24 08:30 25 mg ONCE ONE Administration Medical Decision Making Medical Decision Making MDM Narrative: Patient is a 69-year-old female past medical history of hypertension, asthma, paroxysmal atrial fibrillation on Eliquis with ablation in September of 2023 with most recent echo in July of 2023 LVEF 55-60% no wall motion abnormalities, ASCVD who presents for evaluation of persistent headache and left lateral neck pain after syncopal episode 2 days ago without preceding symptoms as per HPI. Overall she is well-appearing, nontoxic, afebrile she has been ambulatory with a steady gait and has no focal neurological deficits. Prior to my assumption of care she had a CT of the head and cervical spine obtained, CT without acute intracranial pathology, calcified plaques in the cavernous supraclinoid segments intervals ICA and V4 segments of the vertebral arteries, no acute cervical spine fracture subluxation, multilevel spondylosis. Pain CTA of the head and neck to exclude high-grade stenosis. Denies associated chest pain, shortness of breath, palpitations and was not during exercise/exertion to suggest aortic stenosis, ACS, pulmonary embolism, pericardial effusion, aortic dissection. EKG revealing a normal sinus rhythm with ventricular rate of 60, QTC 400, without acute ischemic findings or concerning arrhythmia or AV block. No history of seizure disorder no bladder bowel dysfunction. Differential Diagnosis Differential Diagnoses: The differential diagnosis associated with the presentation includes (See narrative above) Admission/Observation Consideration of admission/observation: Escalation of care including admission/observation considered (See narrative above) Lab Data MDM Lab Attestation statement: I reviewed the patient's lab results. CBC is without leukocytosis anemia or thrombocytopenia. No electrolyte derangement. No ADILIA. Minimally elevated AST/ALT 36/46 respectively. High sensitive. BMP within normal range. 05/08/24 05:30 05/08/24 05:30 Labs: Lab Results 05/07/24 Range/Units 15:22 WBC 4.8 (4.8-10.8) X10*3/uL RBC 4.54 (4.20-5.50) X10*6/uL Hgb 14.2 (12.0-16.0) g/dl Hct 43.1 (37.0-47.0) % MCV 94.9 (80.0-98.0) fL MCH 31.3 (27.0-33.0) pg MCHC 32.9 (31.0-35.0) g/dl RDW 12.6 (11.0-16.0) % Plt Count 186 (160-400) X10*3/uL MPV 9.6 (9.4-12.3) fL Immature Gran % (Auto) 0.2 (0.0-0.4) % Neut % (Auto) 56.4 (45-73) % Lymph % (Auto) 26.9 (20-40) % [place] % (Auto) 8.7 (2-11) % Eos % (Auto) 7.2 H (0-4) % Baso % (Auto) 0.6 (0-2) % Lymph # (Auto) 1.3 (1.2-4.9) X10*3/uL Independence # (Auto) 0.4 (0.1-1.2) X10*3/uL Eos # (Auto) 0.4 (0.0-0.4) X10*3/uL Baso # (Auto) 0.0 (0.0-0.2) X10*3/uL Abs Immat Gran (auto) 0.01 (0.00-0.03) X10*3/uL Absolute Neuts (auto) 2.7 (2.0-8.3) x10*3/uL Absolute Nucleated RBC 0.000 (0.0-0.012) X10*3/uL Nucleated RBC % (auto) 0.0 (0.0-0.2) /100WBC PT 13.1 H (10.9-12.4) SEC INR 1.1 (0.9-1.1) APTT 45.2 H D (26.0-36.8) SEC Sodium 142 (135-145) mmol/L Potassium 4.8 (3.3-5.1) mmol/L Chloride 105 (96-108) mmol/L Carbon Dioxide 30 H (22-29) mmol/L Anion Gap 12 (12-20) BUN 13 (9-16) mg/dL Creatinine 0.78 (0.5-1.4) mg/dL Estim Creat Clear Calc 82.3 Estimated GFR > 60 Random Glucose 88 (60-115) mg/dL Calcium 10.1 (8.4-10.2) mg/dL Total Bilirubin 0.4 (0.0-1.0) mg/dL AST 36 H (5-31) U/L ALT 46 H (0-31) U/L Alkaline Phosphatase 89 (39-117) U/L Troponin I High Sens < 2.7 (<3.5-17.0) ng/L B-Natriuretic Peptide 78 (<100) pg/mL Total Protein 7.8 (6.5-8.0) g/dL Albumin 4.2 (3.5-5.0) g/dL Independent Interpretation I performed an independent interpretation of an: EKG (See narrative above) Radiology Impression Discussion of test interpretation with radiology: I have reviewed the radiologist's reading. Radiologist Impression: CT/CT head/brain wo IV con IMPRESSION: No acute fracture, bony calvarium. No acute intracranial hemorrhage. Polypoid paranasal sinus disease. Atherosclerosis disease, ICAs and V4 segments. CT/CT cervical spine wo IV con IMPRESSION: Multilevel cervical spondylosis C3- T1 more conspicuous at C6-7 without acute fracture or gross trauma-related listhesis. If patient's symptoms persist recommend noncontrast MRI cervical spine. Findings: Standard three-vessel aortic arch anatomy. Widely patent common carotid arteries, carotid bifurcations, and extracranial internal carotid arteries. Codominant and widely patent cervical vertebral arteries. V4 segments and basilar artery appear normal. Cerebellar circulation and posterior cerebral arteries intact. Anterior and middle cerebral artery branches opacify normally No intracranial arterial aneurysm or vascular malformation. IMPRESSION: Normal CTA head and neck exam. Discharge Plan Discharge Clinical Impression: Concussion Syncope Qualifiers: Syncope type: unspecified Qualified Code(s): R55 - Syncope and collapse Patient Disposition: Home, Self-Care Interventions: ED Discharge Assessment Last Done: 05/08/24 15:35 Discharge Date/Time: 05/08/24 15:55
[2024-05-07 15:28] LABS: MANUAL DIFF FLAG NO
[2024-05-07 15:31] LABS: Basophils Percent Auto 0.6 % (0-2); Eosinophils Absolute Auto 0.4 X10*3/uL (0.0-0.4); Eosinophils Percent Auto 7.2 % (0-4); Hematocrit 43.1 % (37.0-47.0); Hemoglobin 14.2 g/dl (12.0-16.0); Imm Gran Abs Auto 0.01 X10*3/uL (0.00-0.03); Imm Gran Pct Auto 0.2 % (0.0-0.4); Lymphocytes Absolute Auto 1.3 X10*3/uL (1.2-4.9); Lymphocytes Percent Auto 26.9 % (20-40); Mean Corpuscular HGB Conc 32.9 g/dl (31.0-35.0); Mean Corpuscular Hemoglobin 31.3 pg (27.0-33.0); Mean Corpuscular Volume 94.9 fL (80.0-98.0); Mean Platelet Volume 9.6 fL (9.4-12.3); Monocytes Absolute Auto 0.4 X10*3/uL (0.1-1.2); Monocytes Percent Auto 8.7 % (2-11); Neutrophils Absolute Auto 2.7 x10*3/uL (2.0-8.3); Neutrophils Percent Auto 56.4 % (45-73); Platelet Count 186 X10*3/uL (160-400); Red Blood Count 4.54 X10*6/uL (4.20-5.50); Red Cell Distribution Width 12.6 % (11.0-16.0); White Blood Count 4.8 X10*3/uL (4.8-10.8)
[2024-05-07 15:35] LABS: INTERNATIONAL NORM RATIO 1.1 (0.9-1.1); Prothrombin Time 13.1 SEC (10.9-12.4)
[2024-05-07 15:38] LABS: Partial Thromboplastin Time 45.2 SEC (26.0-36.8)
[2024-05-07 15:53] LABS: Alanine Aminotransferase 46 U/L (0-31); Albumin Level 4.2 g/dL (3.5-5.0); Anion Gap 12 (12-20); Aspartate Amino Transferase 36 U/L (5-31); Bilirubin Total 0.4 mg/dL (0.0-1.0); Blood Urea Nitrogen 13 mg/dL (9-16); Calcium 10.1 mg/dL (8.4-10.2); Carbon Dioxide 30 mmol/L (22-29); Chloride 105 mmol/L (96-108); Creatinine Clr Calc Pharmacy 82.3; Estimated Glomerular Filt Rate > 60; Glucose Random 88 mg/dL (60-115); Potassium 4.8 mmol/L (3.3-5.1); Sodium 142 mmol/L (135-145); Total Protein 7.8 g/dL (6.5-8.0)
[2024-05-07 16:01] LABS: Troponin-I High Sensitivity < 2.7 ng/L (<3.5-17.0)
[2024-05-07 16:08] LABS: B Type Natriuretic Peptide 78 pg/mL (<100)
[2024-05-07 17:10] LABS: Alkaline Phosphatase 89 U/L (39-117)
[2024-05-07 19:52] VITALS: BP 163/84; PULSE 60; RESP 18; TEMP 36.4; O2SAT 95
[2024-05-07 21:06] VITALS: BP 176/59; PULSE 60; RESP 16; TEMP 36.5; O2SAT 97
[2024-05-07 22:19] VITALS: BP 153/89; BP 155/74; BP 164/90; PULSE 60; PULSE 61; PULSE 63
[2024-05-07 22:28] VITALS: RESP 16; TEMP 36.5; O2SAT 94
[2024-05-07] MEDS: 0.9 % Sodium Chloride 1,000 ML 999 ML IV (22:35)
[2024-05-07] MEDS: iohexoL 350 MG/ML 100 ML INFUS..BTL 70 ML IV (23:10)
[2024-05-07] MEDS: Acetaminophen 325 MG TABLET 975 MG PO (23:49)
[2024-05-08 02:16] VITALS: BP 143/81; PULSE 60; RESP 18; TEMP 36.8; O2SAT 97
--- NOTE | 2024-05-08 04:08 | P.HPHOSP_ITS ---
History of Present Illness Date of Service: 05/08/24 Attending physician on admission: Eileen Riddle Chief Complaint: MIJARES, L lateral neck pain Patient is a 61-year-old female with a past medical history significant for HTN, asthma unspecified, paroxysmal AFib on Eliquis status post ablation 10/17, depression and hyperlipidemia, who presented to the ED due to headache and left lateral neck pain after a syncopal episode 2 days ago. She reports that she was feeling dizzy and nauseous just prior to the syncopal episode but denies any tachycardia chest pain or shortness of breath. She did hit her head and lose consciousness. She reports 1 previous episode similar many years ago. She has recently had bronchitis and is still experiencing a dry cough and chills. She also reports recently being treated for otitis media. Review of Systems 2 Constitutional: Constitutional: Reports chills, Denies fatigue and Reports headache(s) Eyes: Eyes: Denies change in vision and Denies photophobia ENT: Reports headache(s), Denies nasal congestion, Denies nasal discharge, Reports neck pain and Denies sore throat Cardiovascular: Cardiovascular: Denies chest pain, Denies rapid heart rate, Denies lightheadedness, Denies dyspnea and Denies dyspnea on exertion Respiratory: Respiratory: Reports cough, Denies dyspnea, Denies dyspnea on exertion and Denies wheezing Gastrointestinal: Gastrointestinal: Denies constipation, Denies diarrhea, Denies nausea and Denies vomiting Genitourinary: Genitourinary: Denies hematuria, Denies difficulty voiding, Denies dysuria and Denies urinary urgency Musculoskeletal: Musculoskeletal: Reports neck pain, Denies numbness and Denies tingling Integumentary/Breasts: Skin/Breast: Denies rash Neurologic: Denies confusion, Reports headache(s), Denies numbness and Denies tingling Psychiatric: Psychiatric: Denies confusion Endocrine: Endocrine: Denies fatigue Hematologic/Lymphatic: Hematologic/Lymphatic: Denies easy bleeding and Denies easy bruising Allergic/Immunologic: Allergic/Immunologic: Denies wheezing [facility] Medical History Hypertension Asthma Anxiety Chronic low back pain On anticoagulant therapy On beta francisco at home PAF (paroxysmal atrial fibrillation) Functional capacity: independent ambulation Family History Father Myocardial infarction CVD (cardiovascular disease) Mother Mental health disorder Sister Mental health disorder Surgical History H/O cardiac radiofrequency ablation H/O colonoscopy History of evacuation of hematoma History of bowel resection History of knee surgery Social History Household Members: Spouse, Family and Children 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:: , 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, 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, 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 Are you a primary critical care unit nurse to a significant other at home: Yes Do you presently have visiting nurse or other home services: No Alcohol intake: current Alcohol intake frequency: holidays/special occasions only Patient Tobacco Use Status: Never used Tobacco Smoked in Last 30 Days: No e-Cigarette/Vaping Use: Never Used Use of substances other than those prescribed or required for medical reasons: No Advance Directives: No Advance Directives Information Provided: No service: No Current occupational status: retired 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 Current occupational exposures/hazards: No Cognitive needs: No Hearing needs: No Vision needs: Yes Narrative: No smoking, alcohol or drug use Meds Allergies Allergy/AdvReac Type Severity Reaction Status Date / Time oxycodone [From PERCODAN] Allergy Intermediate HIVES Verified 05/07/24 14:45 rosuvastatin [From Crestor] AdvReac Intermediate body aches Verified 05/07/24 14:45 Hydrocodone-Acetaminophen AdvReac Unknown nausea and Uncoded 04/17/24 09:04 vomiting Active Medications: Current Medications Acetaminophen (Acetaminophen 325 Mg Tablet) 650 mg PO Q6H PRN PRN Reason: Pain, Mild 1-3,fever,headache Calcium Carbonate (Calcium Carbonate 750 Mg Tab.Chew) 750 mg PO Q4H PRN PRN Reason: Heartburn Magnesium Hydroxide (Milk Of Magnesia 30 Ml Oral.Susp) 30 ml PO DAILY PRN PRN Reason: Constipation Melatonin (Melatonin 3 Mg Tablet) 6 mg PO BEDTIME PRN PRN Reason: Insomnia Ondansetron HCl (Ondansetron Hcl 4 Mg/2 Ml Vial) 4 mg IVPUSH Q8H PRN PRN Reason: Nausea and Vomiting Sodium Chloride (0.9 % Sodium Chloride Flush 3 Ml Syringe) 3 ml IVFLUSH QSHIFT [facility] Home Medications ?Medication ?Instructions ?Recorded ?Confirmed ?Last Taken ?Type lamotrigine 100 mg tablet 250 mg PO BEDTIME 10/01/20 03/05/24 05/21/23 History latanoprost 0.005 % eye drops 1 drp ophthalmic (eye) BEDTIME 10/01/20 03/05/24 05/21/23 History trazodone 100 mg tablet 100 - 200 mg PO BEDTIME Sleep 10/01/20 03/05/24 05/21/23 History hydroxyzine HCl 25 mg tablet 25 mg PO DAILY PRN Anxiety 12/16/20 03/05/24 05/21/23 History fluoxetine 20 mg capsule 20 mg PO DAILY 12/01/21 03/05/24 05/21/23 History ascorbic acid (vitamin C) 500 mg 1,000 mg PO DAILY 06/02/22 03/05/24 05/21/23 History capsule cholecalciferol (vitamin D3) 50 50 mcg PO DAILY 06/08/22 03/05/24 05/21/23 History mcg (2,000 unit) capsule (Vitamin D3) [id number] 1 tab PO DAILY 06/08/22 03/05/24 05/21/23 History tablet (Multivitamin 50 Plus tablet) acetaminophen 500 mg tablet 1,000 mg PO DAILY PRN Pain 09/12/23 03/05/24 Unknown History (Acetaminophen Extra Strength) metoprolol tartrate 25 mg tablet 50 mg PO BID 01/24/24 03/05/24 Unknown History Physical Exam 2 Vital Signs and Narrative: Vital Signs: Last Vital Signs Temp 98.3 F 05/08/24 02:16 Pulse 60 05/08/24 02:16 Resp 18 05/08/24 02:16 BP 143/81 H 05/08/24 02:16 Pulse Ox 97 05/08/24 02:16 O2 Del Method Room Air 05/08/24 02:16 BMI result Body Mass Index 31.2 General: AOx3, no acute distress Resp: CTA bilaterally, dry cough CVS: S1, S2, RRR GI: +BS, NT, no distention Skin: Warm, dry Neuro: Cranial nerves II-XII grossly intact bilaterally. Motor grossly intact bilaterally. strength 5/5 bilateral UE. Extremities: No LE edema Psych: Appropriate affect Const: General: No confusion Orientation/consciousness: No confusion Eyes: Direct Ophthalmoscopy: No photophobia Neuro: General: No confusion Results Labs 05/07/24 15:22 05/07/24 15:22 Labs: Laboratory Results - last 24 hr 05/07/24 15:22 MCV 94.9 MCH 31.3 MCHC 32.9 RDW 12.6 Plt Count 186 MPV 9.6 Immature Gran % (Auto) 0.2 Neut % (Auto) 56.4 Lymph % (Auto) 26.9 Emmet % (Auto) 8.7 Eos % (Auto) 7.2 H Baso % (Auto) 0.6 Lymph # (Auto) 1.3 Emmet # (Auto) 0.4 Eos # (Auto) 0.4 Baso # (Auto) 0.0 Abs Immat Gran (auto) 0.01 Absolute Neuts (auto) 2.7 Absolute Nucleated RBC 0.000 Nucleated RBC % (auto) 0.0 PT 13.1 H INR 1.1 APTT 45.2 H D Anion Gap 12 Estim Creat Clear Calc 82.3 Estimated GFR > 60 Random Glucose 88 Calcium 10.1 Total Bilirubin 0.4 AST 36 H ALT 46 H Alkaline Phosphatase 89 B-Natriuretic Peptide 78 Total Protein 7.8 Albumin 4.2 Imaging Radiologist's Impressions: Impressions Head CT 05/07/24 14:21 IMPRESSION: No acute fracture, bony calvarium. No acute intracranial hemorrhage. Polypoid paranasal sinus disease. Atherosclerosis disease, ICAs and V4 segments. Electronically signed by: Rafi Viera MD 05/07/2024 03:29 PM EST RP Cervical Spine CT 05/07/24 14:45 IMPRESSION: Multilevel cervical spondylosis C3- T1 more conspicuous at C6-7 without acute fracture or gross trauma-related listhesis. If patient's symptoms persist recommend noncontrast MRI cervical spine. Fleischner guidelines were followed. Electronically signed by: Rafi Viera MD 05/07/2024 03:38 PM EST RP Assessment and Plan (1) Syncope: Status: Acute Plan Patient is a 61-year-old female with a past medical history significant for HTN, asthma unspecified, paroxysmal AFib on Eliquis status post ablation 10/17, depression and hyperlipidemia, who presented to the ED due to headache and left lateral neck pain after a syncopal episode 2 days ago. Syncope, unclear etiology - vital signs stable, WBC normal, no obvious signs of infection - CT head and cervical spine, CTA head and neck all negative - orthostatics negative - EKG with NSR - neuro and Cardiology consult - admit for observation on tele - monitor CBC and BMP Asthma unspecified, no acute exacerbation - continue home inhalers HTN - continue home meds Paroxysmal AFib s/p ablation - EKG with NSR - continue Eliquis Depression - continue home meds HLD - continue home med Obesity - BMI 31.2 - weight loss encouraged Med rec not complete upon admission Full code VTE prophylaxis: Sultana Patient with syncopal episode of unclear etiology requiring admission for observation for monitoring and further evaluation by Neurology and Cardiology. Quality Stroke Does the patient have a stroke diagnosis?: No VTE Prior VTE?: No VTE Risk Level:: Medical - moderate - high VTE Device Contraindication: Treatment Not Indicated VTE Drug Contraindication: N/A - Med Ordered
[2024-05-08 05:15] VITALS: BP 123/60; PULSE 62; RESP 18; TEMP 36.9; O2SAT 98
[2024-05-08 06:13] LABS: MANUAL DIFF FLAG NO
[2024-05-08 06:15] LABS: Basophils Percent Auto 0.5 % (0-2); Eosinophils Absolute Auto 0.3 X10*3/uL (0.0-0.4); Eosinophils Percent Auto 7.3 % (0-4); Hematocrit 38.6 % (37.0-47.0); Hemoglobin 13.1 g/dl (12.0-16.0); Imm Gran Abs Auto 0.01 X10*3/uL (0.00-0.03); Imm Gran Pct Auto 0.3 % (0.0-0.4); Lymphocytes Absolute Auto 1.4 X10*3/uL (1.2-4.9); Lymphocytes Percent Auto 34.4 % (20-40); Mean Corpuscular HGB Conc 33.9 g/dl (31.0-35.0); Mean Corpuscular Hemoglobin 31.5 pg (27.0-33.0); Mean Corpuscular Volume 92.8 fL (80.0-98.0); Mean Platelet Volume 9.8 fL (9.4-12.3); Monocytes Absolute Auto 0.4 X10*3/uL (0.1-1.2); Monocytes Percent Auto 10.6 % (2-11); Neutrophils Absolute Auto 1.9 x10*3/uL (2.0-8.3); Neutrophils Percent Auto 46.9 % (45-73); Platelet Count 158 X10*3/uL (160-400); Red Blood Count 4.16 X10*6/uL (4.20-5.50); Red Cell Distribution Width 12.6 % (11.0-16.0)
[2024-05-08 06:30] LABS: Anion Gap 12 (12-20); Blood Urea Nitrogen 10 mg/dL (9-16); Calcium 9.2 mg/dL (8.4-10.2); Carbon Dioxide 27 mmol/L (22-29); Chloride 107 mmol/L (96-108); Creatinine Clr Calc Pharmacy 86.7; Estimated Glomerular Filt Rate > 60; Glucose Random 85 mg/dL (60-115); Sodium 142 mmol/L (135-145)
[2024-05-08] MEDS: 0.9 % Sodium Chloride Flush 3 ML SYRINGE IVFLUSH (08:14)
[2024-05-08] MEDS: Apixaban 5 MG TABLET PO (08:14)
[2024-05-08 08:15] VITALS: BP 127/67; PULSE 68; RESP 14; TEMP 36.2; O2SAT 93
[2024-05-08] MEDS: traMADoL HCL 50 MG TABLET 25 MG PO (08:48)
--- NOTE | 2024-05-08 09:34 | PHA.MEDREC ---
Addendum entered by Joe Del Castillo RPh 05/08/24 10:21: Reviewed by [facility] Original Note: Pharmacy Consult ? Medication Reconciliation Pharmacy has completed the medication reconciliation. Spoke to patient to confirm med list. Patient states she no longer uses Ipratropium 0.5 mg- Albuterol 3 mg. Patient confirmed Repatha SureClick 140 mg [id number], last dose Monday05/06/24.
--- NOTE | 2024-05-08 09:40 | MHC.CM.PN ---
CM met with Patient at bedside, in the ED and addressed JURADO with her (original was given to Patient and a copy will be placed on the chart). Patient lives in a house with her /HCP/Edjulaina, who will transport to home at dc. Home/self care is Patient's goal and CM has initiated and will follow for dc planning. PCP is Dr. Bonny Bueno.
--- NOTE | 2024-05-08 11:04 | PM.NEUROCN ---
History of Present Illness Data of Consult Service Date: 05/08/24 Primary Care Provider: Bonny Bueno MD [facility] Reason for consult: Syncope 69 years old woman who said that she passed out while she was outside walking with her . She said that she remember suddenly feeling dizzy and then falling down and hitting her head on the ground. She also said that something like this has happened 10 years ago when she was going down in her basement sellar. There was no reporting of any convulsion or incontinence. She denied any cardiac symptoms. Review of Systems Review of Systems: No recent cold or flu-like illness PMFSH Past Medical History Medical History Hypertension Asthma Anxiety Chronic low back pain On anticoagulant therapy On beta francisco at home PAF (paroxysmal atrial fibrillation) Family History Family History Father Myocardial infarction CVD (cardiovascular disease) Mother Mental health disorder Sister Mental health disorder Surgical History Surgical History H/O cardiac radiofrequency ablation H/O colonoscopy History of evacuation of hematoma History of bowel resection History of knee surgery Social History Social History Household Members: Spouse, Family and Children 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:: , 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, 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, 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 Are you a primary home health care respiratory therapist to a significant other at home: Yes Do you presently have visiting nurse or other home services: No Alcohol intake: current Alcohol intake frequency: holidays/special occasions only Patient Tobacco Use Status: Never used Tobacco Smoked in Last 30 Days: No e-Cigarette/Vaping Use: Never Used Use of substances other than those prescribed or required for medical reasons: No Advance Directives: No Advance Directives Information Provided: No service: No Current occupational status: retired 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 Current occupational exposures/hazards: No Cognitive needs: No Hearing needs: No Vision needs: Yes Meds Allergies Allergy/AdvReac Type Severity Reaction Status Date / Time oxycodone [From PERCODAN] Allergy Intermediate HIVES Verified 05/07/24 14:45 rosuvastatin [From Crestor] AdvReac Intermediate body aches Verified 05/07/24 14:45 Hydrocodone-Acetaminophen AdvReac Unknown nausea and Uncoded 04/17/24 09:04 vomiting Active Medications: Current Medications Acetaminophen (Acetaminophen 325 Mg Tablet) 650 mg PO Q6H PRN PRN Reason: Pain, Mild 1-3,fever,headache Apixaban (Apixaban 5 Mg Tablet) 5 mg PO BID [facility] Last Admin: 05/08/24 08:14 Dose: 5 mg Calcium Carbonate (Calcium Carbonate 750 Mg Tab.Chew) 750 mg PO Q4H PRN PRN Reason: Heartburn Magnesium Hydroxide (Milk Of Magnesia 30 Ml Oral.Susp) 30 ml PO DAILY PRN PRN Reason: Constipation Melatonin (Melatonin 3 Mg Tablet) 6 mg PO BEDTIME PRN PRN Reason: Insomnia Ondansetron HCl (Ondansetron Hcl 4 Mg/2 Ml Vial) 4 mg IVPUSH Q8H PRN PRN Reason: Nausea and Vomiting Sodium Chloride (0.9 % Sodium Chloride Flush 3 Ml Syringe) 3 ml IVFLUSH [facility] Last Admin: 05/08/24 08:14 Dose: 3 ml Home Medications ?Medication ?Instructions ?Recorded ?Confirmed ?Last Taken ?Type lamotrigine 100 mg tablet 250 mg PO BEDTIME 10/01/20 05/08/24 05/07/24 History latanoprost 0.005 % eye drops 1 drp ophthalmic (eye) BEDTIME 10/01/20 05/08/24 05/07/24 History trazodone 100 mg tablet 100 - 200 mg PO BEDTIME Sleep 10/01/20 05/08/24 05/07/24 History fluoxetine 20 mg capsule 20 mg PO DAILY 12/01/21 05/08/24 05/07/24 History ascorbic acid (vitamin C) 500 mg 1,000 mg PO DAILY 06/02/22 05/08/24 05/07/24 History capsule cholecalciferol (vitamin D3) 50 50 mcg PO DAILY 06/08/22 05/08/24 05/07/24 History mcg (2,000 unit) capsule (Vitamin D3) [id number]-mvonyn 1 tab PO DAILY 06/08/22 05/08/24 05/07/24 History tablet (Multivitamin 50 Plus tablet) acetaminophen 500 mg tablet 1,000 mg PO DAILY PRN Pain 09/12/23 05/08/24 05/07/24 History (Acetaminophen Extra Strength) metoprolol tartrate 25 mg tablet 50 mg PO BID 01/24/24 05/08/24 05/07/24 History evolocumab 140 mg/mL subcutaneous 140 mg subcut Q2W 05/08/24 05/08/24 05/07/24 History pen injector (Nicko Mcginnis) hydroxyzine HCl 25 mg tablet 12.5 - 25 mg PO DAILY PRN Anxiety 05/08/24 05/08/24 05/07/24 History Physical Exam Vital Signs: Vital Signs: Last Vital Signs Temp 97.1 F 05/08/24 08:15 Pulse 68 05/08/24 08:15 Resp 14 05/08/24 08:15 BP 127/67 05/08/24 08:15 Pulse Ox 93 05/08/24 08:15 O2 Del Method Room Air 05/08/24 08:15 BMI result Body Mass Index 31.2 Neuro: Other: She is alert and awake with normal spontaneity of speech fluency comprehension and affect. Face is symmetrical. Visual bertrand are full. There was no pronator drift. Deep tendon reflexes are trace to absent with flexor plantars. Results Labs 05/08/24 05:30 05/08/24 05:30 Labs: Short CBC 05/07/24 05/08/24 Range/Units 15:22 05:30 WBC 4.8 4.0 L (4.8-10.8) X10*3/uL Hgb 14.2 13.1 (12.0-16.0) g/dl Hct 43.1 38.6 (37.0-47.0) % Plt Count 186 158 L (160-400) X10*3/uL BMP 05/07/24 05/08/24 15:22 05:30 Sodium 142 142 Potassium 4.8 4.0 Chloride 105 107 Carbon Dioxide 30 H 27 BUN 13 10 Creatinine 0.78 0.74 Calcium 10.1 9.2 D Liver Function 05/07/24 Range/Units 15:22 Total Bilirubin 0.4 (0.0-1.0) mg/dL AST 36 H (5-31) U/L ALT 46 H (0-31) U/L Alkaline Phosphatase 89 (39-117) U/L Albumin 4.2 (3.5-5.0) g/dL CTA of brain and neck did not reveal any significant abnormality. Assessment and Plan (1) Syncope: Qualifiers: Syncope type: unspecified Qualified Code(s): R55 - Syncope and collapse Status: Acute Unclear etiology of sudden dizziness and falling. Consider a routine EEG for evaluation. Procedures Date of Service Date of Service: 05/08/24
--- NOTE | 2024-05-08 12:04 | MHC.CM.PN ---
Patient has been medically cleared for dc to home today, self care.
--- NOTE | 2024-05-08 12:06 | PM.DS ---
DS: Providers Provider Date of Service: 05/08/24 Date of admission: 05/08/24 03:33 Date of discharge: 05/08/24 Primary care physician: Bonny Bueno MD Consults: 05/08/24 03:33 Consult to Neurology Routine Consulting Provider: [facility] Reason for consultation: syncope 05/08/24 04:07 Consult to Cardiology Routine Consulting Provider: [facility] Reason for consultation: syncope Has provider been notified: Yes DS: Diagnosis Discharge Diagnosis (1) Syncope: Status: Acute DS: Summary Hospital Course Hospital Course: from initial hpi: 61-year-old female with a past medical history significant for HTN, asthma unspecified, paroxysmal AFib on Eliquis status post ablation 10/17, depression and hyperlipidemia, who presented to the ED due to headache and left lateral neck pain after a syncopal episode 2 days ago. She reports that she was feeling dizzy and nauseous just prior to the syncopal episode but denies any tachycardia chest pain or shortness of breath. She did hit her head and lose consciousness. She reports 1 previous episode similar many years ago. She has recently had bronchitis and is still experiencing a dry cough and chills. She also reports recently being treated for otitis media. hospital course: Patient was admitted for syncope complicated by concussion. Orthostatics were negative, CT head and cervical spine and CTA of head and neck were all negative. Telemetry was unremarkable. Was seen by Cardiology recommended implantable loop recorder and follow up outpatient. Was seen by Neurology recommended routine EEG which will be done outpatient. Patient feels back to her baseline other than headache relieved by heat pack. and has been ambulating well. will be discharged home. Time Attestation Discharge Coordination Time (in mins): 32 Quality: Safe Use of Opioids Does Pt have an Active Cancer Diagnosis on the Problem List?: No Quality: Stroke Does the patient have a stroke diagnosis?: No Physical Exam Vital Signs: Vital Signs: Last Vital Signs Temp 97.1 F 05/08/24 08:15 Pulse 68 05/08/24 08:15 Resp 14 05/08/24 08:15 BP 127/67 05/08/24 08:15 Pulse Ox 93 05/08/24 08:15 O2 Del Method Room Air 05/08/24 08:15 BMI result Body Mass Index 31.2 Neuro: Other: She is alert and awake with normal spontaneity of speech fluency comprehension and affect. Face is symmetrical. Visual bertrand are full. There was no pronator drift. Deep tendon reflexes are trace to absent with flexor plantars. DS: Data Data Completed and Pending Labs on day of discharge: Laboratory Results - last 24 hr 05/07/24 05/08/24 15:22 05:30 WBC 4.8 4.0 L RBC 4.54 4.16 L Hgb 14.2 13.1 Hct 43.1 38.6 MCV 94.9 92.8 MCH 31.3 31.5 MCHC 32.9 33.9 RDW 12.6 12.6 Plt Count 186 158 L MPV 9.6 9.8 Immature Gran % (Auto) 0.2 0.3 Neut % (Auto) 56.4 46.9 Lymph % (Auto) 26.9 34.4 Stephenson % (Auto) 8.7 10.6 Eos % (Auto) 7.2 H 7.3 H Baso % (Auto) 0.6 0.5 Lymph # (Auto) 1.3 1.4 Stephenson # (Auto) 0.4 0.4 Eos # (Auto) 0.4 0.3 Baso # (Auto) 0.0 0.0 Abs Immat Gran (auto) 0.01 0.01 Absolute Neuts (auto) 2.7 1.9 L Absolute Nucleated RBC 0.000 0.000 Nucleated RBC % (auto) 0.0 0.0 PT 13.1 H INR 1.1 APTT 45.2 H D Sodium 142 142 Potassium 4.8 4.0 Chloride 105 107 Carbon Dioxide 30 H 27 Anion Gap 12 12 BUN 13 10 Creatinine 0.78 0.74 Estim Creat Clear Calc 82.3 86.7 Estimated GFR > 60 > 60 Random Glucose 88 85 Calcium 10.1 9.2 D Total Bilirubin 0.4 AST 36 H ALT 46 H Alkaline Phosphatase 89 Troponin I High Sens < 2.7 B-Natriuretic Peptide 78 Total Protein 7.8 Albumin 4.2 Discharge Plan Discharge Anticipated Discharge Date/Time: 05/08/24 12:03 Patient Disposition: Home, Self-Care Discharge Diagnosis: Syncope, concussion Referrals: Bonny Bueno MD [Primary Care Provider] - 1 Week Discharge Medications: Continued Eliquis 5 mg tablet 5 mg PO BID Qty: 180 3RF albuterol sulfate 90 mcg/actuation HFA aerosol inhaler 2 inh inhalation Q6-8H PRN (Reason: shortness of breath or wheezing) Qty: 8.5 2RF cholecalciferol (vitamin D3) [Vitamin D3] 50 mcg (2,000 unit) Capsule 50 mcg PO DAILY Multivitamin 50 Plus Tablet 1 tab PO DAILY acetaminophen [Acetaminophen Extra Strength] 500 mg tablet 1,000 mg PO DAILY PRN (Reason: Pain) hydroxyzine HCl 25 mg tablet 12.5 - 25 mg PO DAILY PRN (Reason: Anxiety) Repatha SureClick 140 mg/mL pen injector 140 mg SUBCUT Q2W fluoxetine 20 mg capsule 20 mg PO DAILY lamotrigine 100 mg tablet 250 mg PO BEDTIME latanoprost 0.005 % drops 1 drp ophthalmic (eye) BEDTIME trazodone 100 mg tablet 100 - 200 mg PO BEDTIME docusate sodium 100 mg capsule 100 mg PO BEDTIME Qty: 90 3RF ascorbic acid (vitamin C) 500 mg capsule 1,000 mg PO DAILY metoprolol tartrate 25 mg tablet 50 mg PO BID ezetimibe [Zetia] 10 mg tablet 10 mg PO DAILY Qty: 90 3RF fluticasone furoate-vilanterol [Breo Ellipta] 100-25 mcg/dose blister with device 1 inh inhalation DAILY Qty: 60 3RF Discharge Orders: Discharge Order (Routine); Ordered 05/08/24 Ordered By: Tirso Ward Diet: Advance to usual diet Activity on Discharge: As tolerated Stand Alone Forms: Patient Portal Discharge page Print Language: Chinese Other Ambulatory Orders: EEG ambulatory (Routine) Timeframe: 1 Week Facility: [facility] [place] - Location: Radiology Ordered By: Tirso Ward Care Plan Goals: Avoid syncope Health Concerns: Syncope Plan of Treatment: Implantable loop recorder prior to discharge, follow up with Cardiology, Neurology recommending EEG Assessment: See above
[2024-05-08 12:15] VITALS: BP 128/75; PULSE 58; RESP 12; TEMP 36.6; O2SAT 94
--- NOTE | 2024-05-08 13:42 | PM.CNCAR ---
History of Present Illness History of Present Illness Date of Service: 05/08/24 Requesting physician: Tirso Ward Consult reason: other (Syncope) Chief complaint: syncope Narrative: I was consulted to see still in cardiology consultation today as she presented with headache. Patient is a 69-year-old female with prior history of syncope 10 years ago and she fell down a flight of stairs and had a concussion. Subsequently she has been diagnose with atrial fibrillation and has undergone ablation x2, last ablation was last year for recurrent atrial fibrillation. Since then she says a blood pressures been labile. She came to the hospital 2 days after having passed out. She said about 2 days ago she was walking down the steps outside and she has been careful because of the eyes but then she suddenly felt dark vision and then blacked out and new the sensation falling to the ground and found herself on the floor and add hit her head on the pavement. She woke up very quickly as the episode was very brief as per her. She regained consciousness. She tried to manage her headache at home but then because of being on blood thinners subsequently concerned that she was having persistent headache she came for further evaluation. She does not recall the exact event when she hit the pavement. Since being here she has not had any significant arrhythmias. She has been in sinus rhythm. She denied any shortness of breath chest pain prior to the procedure. Review of Systems Constitutional: Constitutional: Reports no additional constitutional complaints Eyes: Eyes: Reports no additional eye complaints Cardiovascular: Cardiovascular: Denies chest pain, Reports syncope, Reports Loss of Consciousness, Denies palpitations and Denies dyspnea Respiratory: Respiratory: Reports no additional respiratory complaints and Denies dyspnea Gastrointestinal: Gastrointestinal: Reports no additional gastrointestinal complaints Genitourinary: Genitourinary: Reports no additional female genitourinary complaints Musculoskeletal: Musculoskeletal: Reports no additional musculoskeletal complaints Integumentary/Breasts: Skin/Breast: Reports system reviewed and no additional complaints, except as docu Neurologic: Reports system reviewed and no additional complaints, except as documented and Reports syncope Psychiatric: Psychiatric: Reports no additional psychiatric complaints Endocrine: Endocrine: Reports no additional endocrine complaints and Denies palpitations PMFSH Past Medical History Medical History Hypertension Asthma Anxiety Chronic low back pain On anticoagulant therapy On beta francisco at home PAF (paroxysmal atrial fibrillation) Family History Family History Father Myocardial infarction CVD (cardiovascular disease) Mother Mental health disorder Sister Mental health disorder Surgical History Surgical History H/O cardiac radiofrequency ablation H/O colonoscopy History of evacuation of hematoma History of bowel resection History of knee surgery Social History Social History Household Members: Spouse, Family and Children 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:: , 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, 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, 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 Are you a primary manager critical care unit to a significant other at home: Yes Do you presently have visiting nurse or other home services: No Alcohol intake: current Alcohol intake frequency: holidays/special occasions only Patient Tobacco Use Status: Never used Tobacco Smoked in Last 30 Days: No e-Cigarette/Vaping Use: Never Used Use of substances other than those prescribed or required for medical reasons: No Advance Directives: No Advance Directives Information Provided: No service: No Current occupational status: retired 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 Current occupational exposures/hazards: No Cognitive needs: No Hearing needs: No Vision needs: Yes Meds Allergies Allergy/AdvReac Type Severity Reaction Status Date / Time oxycodone [From PERCODAN] Allergy Intermediate HIVES Verified 05/07/24 14:45 rosuvastatin [From Crestor] AdvReac Intermediate body aches Verified 05/07/24 14:45 Hydrocodone-Acetaminophen AdvReac Unknown nausea and Uncoded 04/17/24 09:04 vomiting Active Medications: Current Medications Acetaminophen (Acetaminophen 325 Mg Tablet) 650 mg PO Q6H PRN PRN Reason: Pain, Mild 1-3,fever,headache Apixaban (Apixaban 5 Mg Tablet) 5 mg PO BID CHE Last Admin: 05/08/24 08:14 Dose: 5 mg Calcium Carbonate (Calcium Carbonate 750 Mg Tab.Chew) 750 mg PO Q4H PRN PRN Reason: Heartburn Magnesium Hydroxide (Milk Of Magnesia 30 Ml Oral.Susp) 30 ml PO DAILY PRN PRN Reason: Constipation Melatonin (Melatonin 3 Mg Tablet) 6 mg PO BEDTIME PRN PRN Reason: Insomnia Ondansetron HCl (Ondansetron Hcl 4 Mg/2 Ml Vial) 4 mg IVPUSH Q8H PRN PRN Reason: Nausea and Vomiting Sodium Chloride (0.9 % Sodium Chloride Flush 3 Ml Syringe) 3 ml IVFLUSH QSHIFT [facility] Last Admin: 05/08/24 08:14 Dose: 3 ml Home Medications ?Medication ?Instructions ?Recorded ?Confirmed ?Last Taken ?Type lamotrigine 100 mg tablet 250 mg PO BEDTIME 10/01/20 05/08/24 05/07/24 History latanoprost 0.005 % eye drops 1 drp ophthalmic (eye) BEDTIME 10/01/20 05/08/24 05/07/24 History trazodone 100 mg tablet 100 - 200 mg PO BEDTIME Sleep 10/01/20 05/08/24 05/07/24 History fluoxetine 20 mg capsule 20 mg PO DAILY 12/01/21 05/08/24 05/07/24 History ascorbic acid (vitamin C) 500 mg 1,000 mg PO DAILY 06/02/22 05/08/24 05/07/24 History capsule cholecalciferol (vitamin D3) 50 50 mcg PO DAILY 06/08/22 05/08/24 05/07/24 History mcg (2,000 unit) capsule (Vitamin D3) etgotxuenkjl-alazybiu-txhnzy 1 tab PO DAILY 06/08/22 05/08/24 05/07/24 History tablet (Multivitamin 50 Plus tablet) acetaminophen 500 mg tablet 1,000 mg PO DAILY PRN Pain 09/12/23 05/08/24 05/07/24 History (Acetaminophen Extra Strength) metoprolol tartrate 25 mg tablet 50 mg PO BID 01/24/24 05/08/24 05/07/24 History evolocumab 140 mg/mL subcutaneous 140 mg subcut Q2W 05/08/24 05/08/24 05/07/24 History pen injector (Nicko Mcginnis) hydroxyzine HCl 25 mg tablet 12.5 - 25 mg PO DAILY PRN Anxiety 05/08/24 05/08/24 05/07/24 History Physical Exam Vital Signs: Vital Signs: Last Vital Signs Temp 97.8 F 05/08/24 12:15 Pulse 58 05/08/24 12:15 Resp 12 05/08/24 12:15 BP 128/75 05/08/24 12:15 Pulse Ox 94 05/08/24 12:15 O2 Del Method Room Air 05/08/24 12:15 BMI result Body Mass Index 31.2 Const: General: cooperative, comfortable, no acute distress, alert and awake Nutritional Appearance: overweight Orientation/consciousness: patient oriented x3 Limitations: no limitations HEENT: Head: Yes normocephalic Neck: Neck: Yes trachea midline, Yes supple and Yes no JVD Resp: Effort & Inspection: normal respiratory effort Auscultation: clear to auscultation bilaterally Cardio: Jugular venous distension: no JVD Palpation: normal PMI Rate: regular rate Rhythm: regular rhythm Heart sounds: S1 normal heart sound present, S2 normal heart sound present, no click, no gallops and no murmurs GI: Auscultation: normal bowel sounds Skin: General skin exam: no rashes or lesions noted Neuro: General: patient oriented x3 and no focal motor deficits Extrem: General: Yes no clubbing, cyanosis or edema Psych: Appearance: grossly normal Objective Labs and Meds 05/08/24 05:30 05/08/24 05:30 Lab results: Laboratory Results - last 24 hr 05/07/24 05/08/24 15:22 05:30 WBC 4.8 4.0 L RBC 4.54 4.16 L Hgb 14.2 13.1 Hct 43.1 38.6 MCV 94.9 92.8 MCH 31.3 31.5 MCHC 32.9 33.9 RDW 12.6 12.6 Plt Count 186 158 L MPV 9.6 9.8 Immature Gran % (Auto) 0.2 0.3 Neut % (Auto) 56.4 46.9 Lymph % (Auto) 26.9 34.4 Love % (Auto) 8.7 10.6 Eos % (Auto) 7.2 H 7.3 H Baso % (Auto) 0.6 0.5 Lymph # (Auto) 1.3 1.4 Love # (Auto) 0.4 0.4 Eos # (Auto) 0.4 0.3 Baso # (Auto) 0.0 0.0 Abs Immat Gran (auto) 0.01 0.01 Absolute Neuts (auto) 2.7 1.9 L Absolute Nucleated RBC 0.000 0.000 Nucleated RBC % (auto) 0.0 0.0 PT 13.1 H INR 1.1 APTT 45.2 H D Sodium 142 142 Potassium 4.8 4.0 Chloride 105 107 Carbon Dioxide 30 H 27 Anion Gap 12 12 BUN 13 10 Creatinine 0.78 0.74 Estim Creat Clear Calc 82.3 86.7 Estimated GFR > 60 > 60 Random Glucose 88 85 Calcium 10.1 9.2 D Total Bilirubin 0.4 AST 36 H ALT 46 H Alkaline Phosphatase 89 Troponin I High Sens < 2.7 B-Natriuretic Peptide 78 Total Protein 7.8 Albumin 4.2 EKG shows normal sinus rhythm with no AV block with rightward axis Imaging Radiologist's impression: Impressions Head CT 05/07/24 14:21 IMPRESSION: No acute fracture, bony calvarium. No acute intracranial hemorrhage. Polypoid paranasal sinus disease. Atherosclerosis disease, ICAs and V4 segments. Electronically signed by: Rafi Viera MD 05/07/2024 03:29 PM EST RP Cervical Spine CT 05/07/24 14:45 IMPRESSION: Multilevel cervical spondylosis C3- T1 more conspicuous at C6-7 without acute fracture or gross trauma-related listhesis. If patient's symptoms persist recommend noncontrast MRI cervical spine. Fleischner guidelines were followed. Electronically signed by: Rafi Viera MD 05/07/2024 03:38 PM EST RP Assessment and Plan (1) Syncope: Qualifiers: Syncope type: unspecified Qualified Code(s): R55 - Syncope and collapse Status: Acute Patient with episode of syncope without any clear prodrome with some episode of black vision. Etiology is unclear. Could be orthostatic hypotension. Cardiac arrhythmia can not be ruled out. She was significant fall and injury to the head and it is concerning to figure out the etiology. I would suggest to put an implantable loop recorder to assess for any cardiac arrhythmias. Advised to monitor blood pressure. Advised to maintain adequate hydration. Will also schedule him outpatient tilt-table test. Meanwhile continue all her medications. She can be probably discharged home after the implantable loop recorder placement. Will follow up with as an outpatient Procedures Date of Service Date of Service: 05/08/24
--- NOTE | 2024-05-08 13:48 | MHC.CM.PN ---
PER PTS HCP NICK PT IS EXPECTED TO GO HOME PENDING HER PT EVAL HOME WITH [facility] PTS HCP WILL TRANSPORT PT HOME WHEN SHE IS DCD
--- NOTE | 2024-05-08 14:53 | P.BOP_ITS ---
Brief Operative Note Date of Service: 05/08/24 Pre-op diagnosis: Syncope Post-op diagnosis: same Procedure: Placement of implantable loop recorder Implants: After obtaining informed consent patient was in the ER bed. Patient was laid in supine position. Her precordial area was then prepped and draped in a sterile fashion. Patient was then given 2% lidocaine with epinephrine intradermally and subcutaneously in the 4th intercostal space. A PlayEnabletronic implantable loop recorder was then implanted using modified Seldinger technique in the subcutaneous space. Measured R-waves at 0.17-0.2 mV with excellent P waves and R wave morphology noted. The wound was then closed with the Steri-Strips and pressure dressing applied Surgeon: Jenaro Anguiano MD Anesthesia: local Was an Curb Setter Helper used for this Procedure?: No Estimated blood loss (mL): 1 Pathology: none sent Condition: stable Disposition: same day
[2024-05-08 15:35] VITALS: BP 137/69; PULSE 65; RESP 16; TEMP 36.8; O2SAT 94
== END 2024-05-08 19:45 | disposition home or self-care (01) ==
LOC: HO.ED 05-08 02:33 → HO.EDOVER 05-08 03:37
PROVIDERS: Physician Assistant; Admitting Provider Student in an Organized Health Care Education/Training Program; Emergency Provider Emergency Medicine Emergency Medical Services; PCP Internal Medicine; Visit Provider Internal Medicine
DX: R55 Syncope and collapse (principal); S06.0XAA Concussion with loss of consciousness status unknown, initial encounter; W10.9XXA Fall (on) (from) unspecified stairs and steps, initial encounter; Y93.9 Activity, unspecified; Y92.9 Unspecified place or not applicable; Y99.9 Unspecified external cause status; I10 Essential (primary) hypertension; J45.909 Unspecified asthma, uncomplicated; I48.91 Unspecified atrial fibrillation; Z79.01 Long term (current) use of anticoagulants; Z79.899 Other long term (current) drug therapy; R51.9 Headache, unspecified; M54.2 Cervicalgia
CPT/HCPCS: 33285; 36415; 70450; 70496; 70498; 72125; 80048; 80053; 83880; 84484; 85025; 85610; 85730; 93005; 96360; 99222; 99285; C1764; J2004; Q9967

== ENCOUNTER → 2024-05-07 14:45 | Outpatient (BNV) | payer MEDICARE, SELFPAY | PROVIDERS: PCP Internal Medicine; Visit Provider Radiology Diagnostic Radiology | DX: M47.812 Spondylosis without myelopathy or radiculopathy, cervical region (principal); J33.1 Polypoid sinus degeneration; I25.10 Atherosclerotic heart disease of native coronary artery without angina pectoris; I65.23 Occlusion and stenosis of bilateral carotid arteries | CPT/HCPCS: 70450; 70496; 72125 ==

== ENCOUNTER → 2024-05-07 14:45 | Outpatient (BNV) | payer MEDICARE, SELFPAY | PROVIDERS: Admitting Provider Student in an Organized Health Care Education/Training Program; Emergency Provider Emergency Medicine Emergency Medical Services; PCP Internal Medicine; Visit Provider Internal Medicine Cardiovascular Disease | DX: J98.4 Other disorders of lung (principal) | CPT/HCPCS: 93010 ==

== ENCOUNTER → 2024-05-08 03:33 | Outpatient (BNV) | payer MEDICARE, SELFPAY | PROVIDERS: Admitting Provider Student in an Organized Health Care Education/Training Program; Emergency Provider Emergency Medicine Emergency Medical Services; PCP Internal Medicine; Visit Provider Physician Assistant | DX: R55 Syncope and collapse (principal) | CPT/HCPCS: 99234; 99499 ==

== ENCOUNTER → 2024-05-08 03:33 | Outpatient (BNV) | payer MEDICARE, SELFPAY | PROVIDERS: Admitting Provider Student in an Organized Health Care Education/Training Program; Emergency Provider Emergency Medicine Emergency Medical Services; PCP Internal Medicine; Visit Provider Psychiatry & Neurology Neurology | DX: R55 Syncope and collapse (principal) | CPT/HCPCS: 99222 ==

== ENCOUNTER → 2024-05-08 03:33 | Outpatient (BNV) | payer MEDICARE, SELFPAY | PROVIDERS: Admitting Provider Student in an Organized Health Care Education/Training Program; Emergency Provider Emergency Medicine Emergency Medical Services; PCP Internal Medicine; Visit Provider Internal Medicine Cardiovascular Disease | DX: R55 Syncope and collapse (principal) | CPT/HCPCS: 33285; 99222 ==

== ENCOUNTER 2024-05-15 13:16 | Outpatient (AMB) | payer MEDICARE, SELFPAY ==
--- NOTE | 2024-05-15 13:32 | MHC.PC.OV ---
Vital Signs 05/15/24 13:33 Height 5 ft 8 in Weight 203 lb BMI 30.9 BP 106/68 Blood Pressure Location Lt brachial Position Sitting Respiration 18 Pulse 65 Pulse Source Pulse Oximeter Temp 98.0 F Temp Source Oral Pulse Oximetry (%) 95 Oxygen Delivery Method Room Air Intake Visit Reasons: TCM Intake Note: Pt is here today for TCM. Allergies oxycodone [From PERCODAN] Allergy (Intermediate, Verified 05/15/24 13:35) HIVES rosuvastatin [From Crestor] Adverse Reaction (Intermediate, Verified 05/15/24 13:35) body aches Hydrocodone-Acetaminophen Adverse Reaction (Unknown, Uncoded 05/15/24 13:35) nausea and vomiting Tobacco use date assessed: 05/15/24 Last assessed Fall Risk: 05/15/24 Dental Screening Dental Screen Date: 04/17/24 HPI TCM HPI Details Patient presents for the follow-up of ER visit for an event of slip and fall, hitting the head on the step and question of loss of consciousness after the fall. Patient presented to ER 2 days after the episode because of headache. CTA of head and neck and ER workup were negative. Patient was seen by lift builder whole and implantable loop monitor was placed. Pt will follow-up with Neurology after to have EEG. Patient denies any recurrent loss of consciousness, palpitations chest pain, shortness of breath, weakness or numbness in extremities, change in balanced of seizure activity. The headaches resolved. Patient continues to take medications for hypertension hyperlipidemia and chronic asthma. She has been on Eliquis for paroxysmal AFib TCM TCM Information Date of Discharge 05/08/24 Discharged From [facility] Interactive Contact Date (Reference documentation from this date) 05/09/24 [facility] Medical History Hypertension Asthma Anxiety Chronic low back pain On anticoagulant therapy On beta francisco at home PAF (paroxysmal atrial fibrillation) Surgical History H/O cardiac radiofrequency ablation H/O colonoscopy History of evacuation of hematoma History of bowel resection History of knee surgery Family History Father Myocardial infarction CVD (cardiovascular disease) Mother Mental health disorder Sister Mental health disorder Social History Household Members: Spouse, Family and Children 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:: , 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, 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, 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 Are you a primary career information specialist to a significant other at home: Yes Do you presently have visiting nurse or other home services: No Alcohol intake: current Alcohol intake frequency: holidays/special occasions only Patient Tobacco Use Status: Never used Tobacco e-Cigarette/Vaping Use: Never Used service: No Current occupational status: retired 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 Current occupational exposures/hazards: No Cognitive needs: No Hearing needs: No Vision needs: Yes Questionnaire Thrive Questionnaire Date Thrive assessed: 04/10/24 I am a: Patient What is your living situation today?: I have a steady place to live Within the past 12 months, did the food you bought not last and you didn't have the money to get more?: Never true Within the past 12 months, did you worry whether your food would run out before you got money to buy more?: Never true Do you have trouble paying for medicines?: No Do you have trouble getting transportation to medical appointments?: No Do you have trouble paying your heating and electricity bill?: No Do you have trouble taking care of your child, family member or friend?: No Do you have trouble with day-to-day activities such as bathing, preparing meals, shopping, managing finances, etc.?: No Are you currently unemployed and looking for a job?: No Are you interested in more education?: No Please select the resources that you would like help with: None Currently or been in a relationship where the following occur: No concerns reported THRIVE Score: 0 MERLIN-7 AMB Questionnaire MERLIN-7 Date MERLIN - 7 assessed: 11/01/23 Source: Developed by Drs. Trip Miller, Susan Hewitt, Raman Gibson and colleagues, with an educational celio from [employer]. Review of Systems Const All systems reviewed & are unremarkable except as noted in HPI and below Eyes Reports no additional complaints ENT Reports no additional complaints Card Reports no additional complaints Resp Reports no additional complaints GI Reports no additional complaints Reports no additional complaints Physical exam (Primary Care) Vital Signs: Last Vital Signs Temp 98.0 F 05/15/24 13:33 Pulse 65 05/15/24 13:33 Resp 18 02/19/25 13:33 BP 106/68 05/15/24 13:33 Pulse Ox 95 05/15/24 13:33 Oxygen Delivery Method Room Air 05/15/24 13:33 BMI result Body Mass Index 30.9 Tobacco/Smoking Status: Tobacco use Status Tobacco use date assessed 05/15/24 05/15/24 13:40 Patient Tobacco Use Status Never used Tobacco 05/15/24 13:40 e-Cigarette/Vaping Use Never Used 05/15/24 13:40 Thrive Assessment: Date of Thrive Assessment Date Thrive assessed 04/10/24 05/15/24 13:40 Currently or been in a relationship where the following occur: No concerns reported Const General: no acute distress HENMT Head: Yes normal to inspection Face and sinus: Yes normal facial exam Mouth: Normal oral and palatal mucosa present Eyes General: appearance normal, both eyes and all related structures Neck Neck: Yes no lymphadenopathy and Yes supple Resp Effort & Inspection: normal respiratory effort Auscultation: clear to auscultation bilaterally Cardio Rhythm: regular rhythm Heart sounds: S1 normal heart sound present and S2 normal heart sound present GI Inspection: Yes normal to inspection Neuro Cranial nerves: Yes CN's II-XII intact bilaterally Gait exam (Neuro): Normal gait present Motor exam (neuro): 5/5 motor strength present throughout Romberg Test: Negative Coding Level of Care Code Est Pt Level 4 (36502) Diagnoses Fall W19.XXXA PAF (paroxysmal atrial fibrillation) I48.0 Syncope, unspecified syncope type R55 Syncope type: unspecified Assessment & Plan Assessment & Plan (1) Fall: Code(s): W19.XXXA - Unspecified fall, initial encounter Category: Medical Plan: Fall prevention discussed with the patient. She will start regular exercises to improve balance at [facility]. (2) PAF (paroxysmal atrial fibrillation): Comment: s/p catheter ablation 09/2023 [facility] Code(s): I48.0 - Paroxysmal atrial fibrillation Category: Medical Plan: Follow-up with the Cardiology for the loop monitor continue Eliquis and metoprolol (3) Syncope: Comment: ? LOC, ER visit 05/08/2024 negative CTA of the brain neck, EEG ORDERED Code(s): R55 - Syncope and collapse Category: Medical Qualifiers: Syncope type: unspecified Qualified Code(s): R55 - Syncope and collapse Plan: Follow-up with neurology
[2024-05-15 13:33] VITALS: BP 106/68; PULSE 65; RESP 18; TEMP 36.7; O2SAT 95; BMI 30.9
--- OUTSIDE RECORDS SUMMARY | 2024-05-15 13:34 | XMS_ITS | Patient Health Record ---
[facility] Address [address] [place] [address] Care Team Providers Care Immunologist Name Role Phone Bonny Bueno MD Primary Care Provider Laura Quintana Unavailable [phone] Allergies Allergen (clinical drug ingredient) Drug/Non Drug [...] Referring Provider Last Name Myles Referred Organization [facility] Referred Provider Laura Wheeler Referred Address [address] [facility],[place],[address], Referred Provider Specialty Podiatry Referral Priority Routine Medications Medication SIG (Take, Route, Fr equency, Duration) Notes Start Date End Date Status hydrOXYzine HCl Acti ve lamoTRIgine Active Vitamin C Active Fluoxetine Active Vitamin D3 Active Eliquis Active traZODone HCl Active Multivitamin Active Repatha Active Zetia Active Albuterol Active Metoprolol Succinate Active Amoxicillin Active Colace Active Latanoprost Active MiraLax Active Social History Tobacco Use: Social History Observation [...] less (1 point) Points 2 Interpretation Negative Problems Problem Type SNOMED Code ICD Code Onset Dates Problem Status W/U Status Risk Notes Problem Plantar fasciitis of left foot (3138914718346 9101) Plantar fasciitis of left foot (M72.2) Active confirmed Vital Signs Blood pressure diastolic 80 mm Hg 04/04/2024 Height 5ft 8inch in 04/04/2024 Blood pressure systolic 120 mm Hg 04/04/2024 Weight 202 lbs 04/04/2024 BMI 30.71 kg/m2 04/04/2024 Encounters Encounter Location Date Provider Diagnosis [facility] [address] 04/04/2024 Laura Wheeler Pain in left foot M79.672 ; Plantar fasciitis of left foot M72.2 ; Calcaneal spur, left foot M77.32 and Bursitis of left foot M77.[address] [address] 02/21/2024 Laura Wheeler [address] [address] 05/01/2024 Laura Wheeler Assessments Encounter Date Diagnosis (ICD Code) Assessment Notes Treatment Notes Treatment Clinical Notes Section Notes 04/04/2024 Pain in left foot (ICD-10 - M79.672) 04/04/2024 Plantar fasciitis of left foot (ICD-10 - M72.2) Patient Educated with: HEEL CORD STRETCHES.pdf (HEEL CORD STRETCHES.pdf) Patient Educated with: RICE THERAPY.pdf (RICE THERAPY.pdf) 04/04/2024 Calcaneal spur, left foot (ICD-10 - M77.32) 04/04/2024 Bursitis of left foot (ICD-10 - M77.52) 04/04/2024 Other Patient Educated with: RICE THERAPY.pdf (RICE THERAPY.pdf) Patient Educated with: INJECTIONTHERA PY.pdf (INJECTIONTHER APY.pdf) Patient Educated with: RICE THERAPY.pdf (RICE THERAPY.pdf) Patient Educated with: INJECTIONTHERA PY.pdf (INJECTIONTHER APY.pdf) Patient Educated with: RICE THERAPY.pdf (RICE THERAPY.pdf) Patient Educated with: INJECTIONTHERA PY.pdf (INJECTIONTHER APY.pdf) Plan Of Treatment Pending Test Test Name Order Date X ray : Foot, left 3V 04/04/2024 Insurance Providers Payer Name Payer Address Payer Phone Subscriber Number Group Number Insured Name Patient Relationship to Insured Coverage Start Date Coverage End Date [facility] [address] [place] [address] [phone] [id number] Rowena Page Self - patient is the insured Medical (General) History Medical History History ICD Code Anxiety asthma CAD (Cholesterol) Cataracts covid-19 Depression Diverticulosis Glaucoma Heart disease High Blood Pressure Chicken pox Joint implants/screws Surgical History Surgery Date(Month/Year) cardiac ablation bilateral knee replacement bowel resection
--- OUTSIDE RECORDS SUMMARY | 2024-05-15 13:35 | XMS_ITS ---
Author Organization [facility] Address [address] [place] [address] Care Team Providers Care Manager Social Media Name Role Phone Bonny Bueno MD Primary Care Provider Laura Quintana [phone] REASON FOR VISIT cx appt Encounters Encounter Location Date Provider Diagnosis [address] [address] 05/01/2024 Laura Wheeler Plan Of Treatment No Information Progress Notes * Cristina DOMINIQUEOB: (69 yo F)Acc No.[id number]:05/01/2024 Patient:?Rowena DOMINIQUE :1955???Age:69 Y???Sex:Female Address:[address] [place] [address], [address] * true * Date:? Generated for Judah huggins/Consuelo/eTransmitting on:?05/15/2024 01:34 PM EST
--- OUTSIDE RECORDS SUMMARY | 2024-05-15 13:35 | XMS_ITS ---
[facility] Address [address] [place] [address] Care Team Providers Care Metal Pickling Equipment Operator Name Role Phone Bonny Bueno MD Primary Care Provider Laura Quintana Unavailable [phone] Allergies Allergen (clinical drug ingredient) Drug/Non Drug Allergy documented on EMR Reaction Allergy Type Onset Date Status ibuprofen Advil Unknown Drug Allergy Active aspirin Aspirin Unknown Drug Allergy Active rosuvastatin Crestor Unknown Drug Allergy Acti ve Percodan Unknown Drug Allergy Active codeine Codeine Unknown Drug Allergy Active REASON FOR VISIT Heel pain Medications Medication SIG (Take, Route, Fr equency, Duration) Notes Start Date End Date Status Eliquis Active Multivitamin Active Repatha Active Zetia Active Vitamin C Active Albuterol Active Metoprolol Succinate Active Amoxicillin Active Latanoprost Active hydrOXYzine HCl Acti ve traZODone HCl Active Colace Active MiraLax Active lamoTRIgine Active Fluoxetine Active Vitamin D3 Active Social History Tobacco Use: Social History [...] Notes Problem Plantar fasciitis of left foot ([id number] 9101) Plantar fasciitis of left foot (M72.2) Active confirmed Vital Signs Height 5ft 8inch in 04/04/2024 Weight 202 lbs 04/04/2024 BMI 30.71 kg/m2 04/04/2024 Blood pressure systolic 120 mm Hg 04/04/19 25 Blood pressure diastolic 80 mm Hg 025 Encounters Encounter Location Date Provider Diagnosis [facility] [address] [place] [address] 04/04/2024 Laura Wheeler Pain in left foot M79.672 ; Plantar fasciitis of left foot M72.2 ; Calcaneal spur, left foot M77.32 and Bursitis of left foot M77.52 Assessments Encounter Date Diagnosis (ICD Code) Assessment [...] INJECTIONTHERA PY.pdf (INJECTIONTHER APY.pdf) Plan Of Treatment Treatment Notes Assessment Notes Plantar fasciitis of left foot Patient E ducated with: HEEL CORD STRETCHES.pdf (HEEL CORD STRETCHES.pdf) Patient Educated with: RICE THERAPY.pdf (RICE THERAPY.pdf) Other Patient Educated wit h: RICE THERAPY.pdf (RICE THERAPY.pdf) Patient Educated with: INJECTIONTHERAPY.pdf (INJECTIONTHERAPY.pdf) Patient Educated with: RICE THERAPY.pdf (RICE THERAPY.pdf) Patient Educated with: INJECTIONTHERAPY.pdf (INJECTIONTHERAPY.pdf) Patient Educated with: RICE THERAPY.pdf (RICE THERAPY.pdf) Patient Educated with: INJECTIONTHERAPY.pdf (INJECTIONTHERAPY.pdf) Pending Test Test Name Order Date X ray : Foot, left 3V 04/04/2024 Next Appt Details Follow Up: 3-4 Weeks., Reaso n: Procedure Notes * Category Sub-Category Detail Notes Injection Tendon Sheath or Fascia 08704, J 4602 Injection - Plantar Fascia w/ mixture of Celestone Soluspan 3mg and 1cc 1 percent Xylocaine Plain anes. utilizing aseptic technique. The patient tolerated the procedure well. A dry sterile dressing was applied. Post injection instructions were dispensed, verbally discussed, and confirmed understood by the patient. I explained that a steroid and local anesthetic injections are administered to relieve pain and inflammation and thereby meant to improve function. I explained the possible complications including but not limited to signs/symptoms of steroid flare, infection, bruising, atrophy, discoloration of skin, change/deviation in toe position, and that additional injections may be necessary, Patient relates post-procedural pain assessment improved at ( 0-1) out of 10 Progress Notes * Cristina ODMINIQUEOB: (68 yo F)Acc No.[id number]:04/04/2024 Progress Notes Patient:?Rowena DOMINIQUE Provider:?Laura Wheeler DPM :1955???Age:68 Y???Sex:Female D ate:04/04/2024 Address:[address] [place] [address], [id number] Pcp:Bonny Bueno MD Subjective: * Chief Complaints: * ???Heel pain * HPI: ???Heel pain:?Location:?Proximal plantar aspect of Heel, LEFT.?Duration:?several month, since ankle sprain walking with .?Course:?worse.?Aggravated:?standing, walking, walking first thing in the morning/after rest.?Treatments:?rest/alter normal daily activity , ..?Severity/Quality:?Pre-injection procedure pain assessment - ( 6) out of 10.?Misc:?Patient states previous conservative therapy has not provided acceptable relief. Despite previous treatments/efforts, patient continues to relate substantial pain and significant functional disability during activity , The patient denies to have received any vaccine therapy within the past month.? * ROS:?General/Constitutional:?Nausea?denies.?Vomiting?denies.?Hunger Thirst?denies.?Loss appetite?denies.?Chills?denies.?Fatigue?denies.?Fever?denies.?Night Sweats?denies.?Unexplained weight loss?denies.?Unexplained weight gain?denies.?HEENTM:?Dentures?denies.?Dizziness?denies.?Glasses/contacts?admits.?Retinopathy?de nies.?Blurred/double vision?denies.?TMJ?denies.?Discharge/drainage?denies.?Implants?denies.?Sore throat?denies.?Dental implants?denies.?Hard of hearing ?denies.?Difficulty chewing/swallowing/speaking?denies.?Nose bleeds?denies.?Sore mouth?denies.?Respiratory:?On Oxygen?denies.?Pneumonia/pleurisy?denies.?Bronchitis?denies.?Emphysema?denies.?C oughing?denies.?Cough blood?denies.?Shortness of breath?denies.?Wheezing?admits.?Cardiovascular:?Pacemaker?denies.?MVP?denies.?WPW?denies.?CHF?denies.?Heart attack?denies.?Septal defect?denies.?Rapid beat?denies.?Chest pain ?denies.?Atrial Fib.?admits.?Murmur/Palpitations?denies.?Gastrointestinal:?Hemorrhoids?denies.?Stomach/Abdominal pain?denies.?Dark blood stool?denies.?Irritable bowel ?denies.?Constipation?admits.?Diarrhea?denies.?Hematology:?Swelling?denies.?Clots?denies.?Varicose Veins?admits.?Bruising?denies.?Bleeding problem?denies.?Genitourinary:?Blood urine?denies.?Frequent/Painfu/urination/bladder control?admits.?Kidney stones?denies.?Infection (UTI)?denies.?Nephropathy?denies.?sex trans dis (STD)?denies.?Prostate?denies.?Musculoskeletal:?Hammertoes?denies.?Bunions?denies.?Back Pain?denies.?Muscle Cramps/ Resting?denies.?Muscle cramps / walking?denies.?Generalized aches and pains?denies.?Weakness?denies.?Integ.:?Liu?denies.?Scars?admits.?Corns/calluses?admits.?Ingrown nails?denies.?Painful nails?denies.?Open Sores?denies.?Rashes?denies.?Neurologic:?Difficulty sleeping?admits.?Brain disorder?denies.?Numbness?denies.?Balance trouble?admits.?Confusion?admits.?Fainting/blackouts?denies.?Tingling?denies.?Tr emors?denies.? * Medical History:? * Surgical History:?cardiac ab lation bilateral knee replacement bowel resection * Hospitalization/Major Diagno stic Procedure:?Denies Past Hospitalization * Family History:?Mother: judy espinosa, diagnosed with Unspecified essential hypertension, Unspecified cerebral artery occlusion with cerebral infarction, Family history of arthritis.?Father: , defects, poor circulation, diagnosed with Other malignant neoplasm of unspecified site, Unspecified essential hypertension, Unspecified heart disease.? * Social History:?Tobacco Use:?Tobacco use other than smoking?Are you an other tobacco user??No ?Tobacco Control (Standard)?Tobacco use:?Nonsmoker ?Additional Findings: Tobacco non-user?Current nonsmoker ???Drugs/Alcohol:?Drugs?Have you used drugs other than those for medical reasons in the past 12 months??No ???Miscellaneous:?Caffeine: yes. ?Children: yes, 2. ?Exercise: yes, walking, sewing, crafting, knitting. ?Marital status: . 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 ???Drug/Alcohol:?AUDIT-C (Standard)?Did you have a drink containing alcohol in the past year??Yes ?How often did you have six or more drinks on one occasion in the past year??Less than monthly (1 point) ?How many drinks did you have on a typical day when you were drinking in the past year??1 or 2 drinks (0 point) ?How often did you have a drink containing alcohol in the past year??Monthly or less (1 point) ?Points?2 ?Interpretation?Negative * Medications:?TakingtraZODone HCl lamoTRIgine Fluoxetine hydrOXYzine HCl Amoxicillin Latanoprost Albuterol Metoprolol Succinate Repatha Zetia Eliquis Multivitamin Vitamin C Vitamin D3 MiraLax Colace Medication List reviewed and reconciled with the patientTaking traZODone HCl Taking lamoTRIgine Taking Fluoxetine Taking hydrOXYzine HCl Taking Amoxicillin Taking Latanoprost Taking Albuterol Taking Metoprolol Succinate Taking Repatha Taking Zetia Taking Eliquis Taking Multivitamin Taking Vitamin C Taking Vitamin D3 Taking MiraLax Taking Colace Medication List reviewed and reconciled with the patient * Allergies:?AspirinAdvilCodei nePercodanCrestor Objective: * Vitals:?Ht:5ft 8inch, Wt:202 , BMI:30.71, Shoe size:9.5, BP:120/80mm Hg, Ht-cm: 172.72 cm, Wt-k.63 kg. * Examination: ???Heel Pain: ?INSPECTION:? Pain on Palpation to Plantar Fascia med. and central bands, intrinsic musc., infra-calcaneal bursa, and med calc tubercle , LEFT foot, No pain: posterior/superior heel, achilles bursa/tendon, sinus tarsi, peroneals, or with lateral heel compression; no limited STJ ROM, calor, or ecchymosis.?Orthopedic: ?GAIT ABNORMALITY:?antalgic.?FOOT MORPHOLOGY:? Pes Planus structure, Decreased Ankle joint dorsiflexion ROM, knee extended.?FOOTWEAR:?shoe gear properties exacerbate patients foot/toe deformity.?X-Rays - IMAGING REPORT: ?Clinical Indication(s):? Evaluate for Fracture, Evaluate Biomechanical Deformity.?Views:?3 views of Foot, LAT, LO, MO, LEFT??Taken by trained?Podiatric Juke Box Servicer (?EF).?Findings:? normal bone and soft tissue density consistent for patients age and sex, navicular/cuneiform plantar subluxation with anterior cyma line, positive infra-calcaneal exostosis, no coalitions identified.?Foot structure:? reveals excess pronation with, anterior break in cyme line, increased talar declination, decreased calcaneal inclination.?Fracture:?Negative fractures identified.?Neurological: ?TINEL'S COMPRESSION:?Negative tarsal tunnel, john pedis, and medial calcaneal nerves.? Assessment: * Assessment: 1.?Pain in left foot - M79.6 72???2.?Plantar fasciitis of left foot - M72.2 (Primary)???Specify :Acute problem, Complicated w/ Multiple Tx Options(4),Dx New problem, Prognosis Uncertain (4)???3.?Calcaneal spur, left foot - M77.32???4.?Bursitis of left foot - M77.52??? Plan: * Treatment: 2.?Pain in left foot?Imaging: X ray : Foot, left 3V 3.?Others? Notes: Patient Educated with: RICE THERAPY.pdf (RICE THERAPY.pdf) Patient Educated with: INJECTIONTHERAPY.pdf (INJECTIONTHERAPY.pdf) Patient Educated with: RICE THERAPY.pdf (RICE THERAPY.pdf) Patient Educated with: INJECTIONTHERAPY.pdf (INJECTIONTHERAPY.pdf) Patient Educated with: RICE THERAPY.pdf (RICE THERAPY.pdf) Patient Educated with: INJECTIONTHERAPY.pdf (INJECTIONTHERAPY.pdf)?? * Procedures:?Injection:?Tendon Sheath or Fascia?29112, J0702 Injection - Plantar Fascia w/ mixture of Celestone Soluspan 3mg and 1cc 1 percent Xylocaine Plain anes. utilizing aseptic technique. The patient tolerated the procedure well. A dry sterile dressing was applied. Post injection instructions were dispensed, verbally discussed, and confirmed understood by the patient. I explained that a steroid and local anesthetic injections are administered to relieve pain and inflammation and thereby meant to improve function. I explained the possible complications including but not limited to signs/symptoms of steroid flare, infection, bruising, atrophy, discoloration of skin, change/deviation in toe position, and that additional injections may be necessary, Patient relates post-procedural pain assessment improved at ( 0-1) out of 10.? * Procedure Codes:?66531 X-RAY EXAM OF LEFT FOOT 3V, Modifiers: 26 , LT * Preventive Medicine:? ??Counseling:?Discussion:?-04: Office or other outpatient visit for the evaluation and management of a new patient, which required a medically appropriate history and/or examination and MODERATE level of DECISION MAKING for: 1 OR MORE CHRONIC PROBLEM(S) THATS WORSENING, 2 STABLE CHRONIC PROBLEMS, A NEWLY DIAGNOSED PROBLEM WITH UNCERTAIN PROGNOSIS, AN ACUTE COMPLICATED INJURY WITH MULTIPLE TREATMENT OPTIONS, OR AN ACUTE PROBLEM WITH ACCOMPANYING SYSTEMIC SYMPTOMS, THAT POSE(S) A MODERATE RISK OF MORBIDITY. THIS CONDITION MAY ALSO INCLUDE RX DRUG MANAGEMENT, OR A DECISON FOR MINOR SURGERY. The visit on the day of the encounter encompassed interpreting the data and educating the patient as to the nature of their condition, treatment options available according to their individual PMH, meds, allergies, and overall health/living conditions, as well as any potential risks or complications that may occur from a failure to adhere to, and participate in, the recommended course of therapy. The discussion included a complete verbal, and/or written explanation of the examination results, any x-rays taken, the proposed diagnosis, and outline of the treatment plan. A schedule for future care needs was also explained. The patient verbalized an understanding of the instructions at this time and agreed to be an active participant in their treatment. If the patient should think of any questions or concerns after the visit, I have encouraged the patient to call the office.?Heel pain:?FASCIITIS: I explained to the patient the possible etiologies of Plantar Fasciitis including foot type/shoegear/activity level/exercise routine and the risks/benefits of all the different treatment options for heel pain including: No treatment at all, Rest, Ice, NSAIDs(only if well tolerated after meals), New/supportive Shoegear, Strappings and Tapings, Stretching exercises, Deep Tissue Massage, Heel cups/cushions, Arch support/shoe inserts, Custom orthoses, Topical analgesics including Aspercream/Voltaren gel, Night splint AFO for am stiffness, Cortisone injection therapy, Cast boot with crutches/cane/or walker for assisted ambulation, Physical Therapy, EPAT/ESWT, Interfil injection therapy, as well as surgical Clifford/Endoscopic Fasciitomy surgical procedures if needed. Recommendations were made to limit barefoot walking, eliminate wearing nonsupportive shoegear (i.e. flip-flops or sandals, or a shoe with an easily bendable, foldable, or twistable sole) and wear shoegear with a good solid sole, a supportive arch, and plenty of room for an insert/orthotic if necessary. If wearing sandals was required by the patient, we recommended orthopedic sandals such as Orthoheel or Birkenstock even while in the home. If the patient wore heels in the past, we recommended they continue, but eliminate the use of flats. The advantages and disadvantages of each option were discussed and the patients questions re: types of shoegear, custom vs prefabricated inserts, activity level, PO vs Topical medications (and their respective potential complications/drug interactions/side effects), and consistency in home treatment regimens for optimal success were answered to their satisfaction. Literature detailing plantar fasciitis and the various treatment options were dispensed and reviewed. Patient recently on systemic anti-inflammatory for Asthma flare, thus prefers local steroid injection at this time..?Orthotics:?I explained to the patient the benefits of OT use. I explained that orthoses are medically necessary to decrease the foot pain through proper mechanical control, support of their foot , decrease stretch/strain on the plantar fascia.?P.R.I.C.E.:?The patient was counseled on the use of P.R.I.C.E. and NSAIDS (if well tolerated) to aid in the recovery from their painful condition, The patient was counseled on the use of P.R.I.C.E. and NSAIDS (if well tolerated) to aid in the recovery from their painful condition, The patient was counseled on the use of P.R.I.C.E. and NSAIDS (if well tolerated) to aid in the recovery from their painful condition.?Shoe Gear Counseling:?The patient and I reviewed the types of shoes they should be wearing. My recommendation included obtaining a well-fitted shoe with a good supportive, non-foldable nor twistable sole, plenty of toe/room for the forefoot, and proper arch support. Based on todays examination, I recommended the patient look for new shoes, by having their feet professionally measured. We discussed that generally the best time of the day for a shoe fitting is the afternoon. Different shoes types and brands to best match the patients occupation and vocation were discussed. Specific brand selection will be up to the patient, their individual foot condition/deformities, and fit. The patient and I reviewed the standard new shoe break in period by wearing them for a few hours a day while checking for redness or sores as wear time is increased. The patient verbally confirmed to understanding the information discussed.?Steriod Injection:?I explained that a steroid and local anesthetic injections are administered to relieve pain and inflammation and thereby meant to improve function. I explained the possible complications including but not limited to signs/symptoms of steroid flare, infection, bruising, atrophy, discoloration of skin, change/deviation in toe position, and that additional injections may be necessary, cortisone post-injection informative educational handout was dispensed to and reviewed with the patient, In order to prevent any compromise of an effective immune response, it was recommended the patient refrain from any vaccine therapy for the next month. Patient verbally confirmed understanding the previously mentioned protocol, I explained that a steroid and local anesthetic injections are administered to relieve pain and inflammation and thereby meant to improve function. I explained the possible complications including but not limited to signs/symptoms of steroid flare, infection, bruising, atrophy, discoloration of skin, change/deviation in toe position, and that additional injections may be necessary, cortisone post- injection informative educational handout was dispensed to and reviewed with the patient, In order to prevent any compromise of an effective immune response, it was recommended the patient refrain from any vaccine therapy for the next month. Patient verbally confirmed understanding the previously mentioned protocol.?Stretching Exercises:?Stretching and deep tissue massage exercises for the patients injury/diagnosis were discussed and demonstrated, handouts were dispensed.? ??Screening/Special Tests:?Fall Risk?Screening:?No falls in the past year ?FALLS: Screening for Future Fall Risk?Have you had any falls with injury in the past year??No * Follow Up:?3-4 Weeks. * Images: * Sign off status: Completed true * Provider:?Laura Wheeler DPM Date:?0 04/04/2024 Generated for Judah huggins/Consuelo/Rodrigue on:?05/15/2024 01:34 PM EST History and Physical Notes * HPI (History of Present Illness) Category Sub-Category Detail Notes Category Not es Heel pain Duration: several month, s james ankle sprain walking with Severity/Quality: Pre-injection proced ure pain assessment - ( 6) out of 10 Location: Proximal plantar asp ect of Heel, LEFT Aggravated: standing, walking, w alking first thing in the morning/after rest Course: worse Treatments: rest/alter normal da perez activity , . Misc: Patient states previ ous conservative therapy has not provided acceptable relief. Despite previous treatments/efforts, patient continues to relate substantial pain and significant functional disability during activity , The patient denies to have received any vaccine therapy within the past month Examination Category Sub-Category Detail Notes Category Not es Neurological TINEL'S COMPRESSION: Negative ta rsal tunnel, john pedis, and medial calcaneal nerves Orthopedic GAIT ABNORMALITY: antalgic FOOT MORPHOLOGY: Pes Planus structure , Decreased Ankle joint dorsiflexion ROM, knee extended FOOTWEAR: shoe gear properties exacerbate patients foot/toe deformity MPJ PATHOLOGY: X-Rays - IMAGING REPORT Findings: normal b one and soft tissue density consistent for patients age and sex, navicular/cuneiform plantar subluxation with anterior cyma line, positive infra-calcaneal exostosis, no coalitions identified Fracture: Negative fractures i dentified Foot structure: reveals excess prona tion with, anterior break in cyme line, increased talar declination, decreased calcaneal inclination Views: 3 views of Foot, LAT , LO, MO, LEFT Taken by trained Podiatric Juke Box Servicer ( EF) Clinical Indication(s): Evaluate for Fra cture, Evaluate Biomechanical Deformity Heel Pain INSPECTION: Pain on Palpatio n to Plantar Fascia med. and central bands, intrinsic musc., infra-calcaneal bursa, and med calc tubercle , LEFT foot, No pain: posterior/superior heel, achilles bursa/tendon, sinus tarsi, peroneals, or with lateral heel compression; no limited STJ ROM, calor, or ecchymosis
--- OUTSIDE RECORDS SUMMARY | 2024-05-15 13:35 | XMS_ITS ---
Author Organization [facility] Address [address] [place] [address] Care Team Providers Care Construction Teacher Name Role Phone Myles SANDERSON, Bonny Primary Care Provider Laura Quintana Unavailable [phone] Encounters Encounter Location Date Provider Diagnosis [facility] [address] [place] [address] 05/09/2024 Laura Wheeler Plan Of Treatment No Information Progress Notes * DOMINIQUEChetan DENNISileDOB: (69 yo F)Acc No.[id number]:05/09/2024 Progress Notes Patient:?Rowena DOMINIQUE Provider:?Laura Wheeler DPM :1955???Age:69 Y???Sex:Female D ate:05/09/2024 Address:[address] [place], [place] [id number] Pcp:Bonny Bueno MD Subjective: * Chief Complaints: * ??? * Medical History:? Objective: * Vitals:? Assessment: Plan: * Treatment: * Images: * The named appointment provid er may or may not be the originator of this progress note, and it is not deemed complete until electronically signed by the appointment provider. Sign off status: Pending * Provider:?Laura Wheeler DPM Date:?0 05/09/2024 Generated for Anai bhavna/Consuelo/eTransmitting on:?05/15/2024 01:34 PM EST
--- OUTSIDE RECORDS SUMMARY | 2024-05-15 13:35 | XMS_ITS | Clinical Summary ---
Author Organization [facility] Address [address] [place] [address] Care Team Providers Care Robotics Testing Technician Name Role Phone Tashia Rice MD Primary Care Provider [phone] Surgical History Surgery Date Site/Laterality Comments OTHER SURGICAL HISTORY PROCEDURE: ARTHROSCOPY PROCEDURE NEC; COMMENT: knee ENDOMETRIAL ABLATION 05/03/2006 PROCEDURE: GA ENDOMETRIAL ABLTJ THERMAL W/O HYSTEROSCOPIC GUID; COMMENT: Novasure COLONOSCOPY 2001 PROCEDURE: GA COLONOSCOPY FLX DX W/COLLJ SPEC WHEN PFRMD; COMMENT: diverticulosis COLONOSCOPY 01/07/08 PROCEDURE: GA COLONOSCOPY STOMA DX INCLUDING COLLJ SPEC SPX; COMMENT: Up to cecum, mild sigmoid diverticulosis, tortuous sigmoid colon, otherwise normal colon exam OTHER SURGICAL HISTORY 02/2011 PROCEDURE: GA COLECTOMY PARTIAL W/ANASTOMOSIS; COMMENT: diverticulitis TOTAL KNEE ARTHROPLASTY 2017 Bilateral PROCEDURE: GA ARTHRP KNE CONDYLE&PLATU MEDIAL&LAT COMPARTMENTS COLONOSCOPY 08/29/2018 PROCEDURE: HISTORICAL COLONOSCOPY; COMMENT: negative Medical History Medical History Date Comments Diverticulosis of colon (wit hout mention of hemorrhage) 03/18/2005 DX:Diverticulosis of colon ( without mention of hemorrhage) Allergic rhinitis, cause unspecified 03/18/2005 DX:Allergic rhinitis, cause unspecified Depressive disorder, not els ewhere classified 03/18/2005 DX:Depressive disorder, not elsewhere classified Unspecified asthma(493.90) 03/18/2005 DX:Un specified asthma(493.90) 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 03/18/2005 DX:Glaucoma associated with unspecified ocular disorder Diverticulitis 10/27/2007 DX:Diverticuliti s Chest pain 04/18/2007 DX:Chest pain PAF (paroxysmal atrial fibri llation) (CMS/HCC) 02/15/2008 DX:PAF (paroxysmal atrial fibrillation) (HCC) Subserous leiomyoma of uterus 03/07/2006 DX :Subserous leiomyoma of uterus Sciatica of right side 11/05/2013 DX:Sciati ca of right side Pure hypercholesterolemia 03/18/2005 DX:Pur e hypercholesterolemia Major depressive disorder, r ecurrent episode, mild (CMS/HCC) 01/02/2015 DX:Major depressive disorder , recurrent episode, mild (HCC) Diverticulitis of colon with out hemorrhage 03/18/2005 DX:Diverticulitis of colon w ithout hemorrhage Depressive disorder 03/18/2005 DX:Depressiv e disorder; COMMENT: Admitted to [facility] status post suicide attempt/Vicodin overdose 01/20/14 Allergic rhinitis 03/18/2005 DX:Allergic rh initis Essential tremor 12/13/2018 DX:Essential tr emor Family History Medical History Relation Name Comments Bipolar disorder Daughter Other: CAD Father PTCA, stents, a t age 72, from [place] at age 74 No Known Problems Maternal Grandfather No Known Problems Maternal Grandmother Other: TIA Mother No Known Problems Other No Known Problems Paternal Grandfather No Known Problems Paternal Grandmother No Known Problems Sister Breast cancer Neg Hx Colon cancer Neg Hx Ovarian cancer Neg Hx Relation Name Status Comments Daughter Father [place] 74yo, lipids ,prostate cancer Maternal Grandfather Maternal Grandmother Mother Alive htn, lipids Other Paternal Grandfather Paternal Grandmother Sister Social History Tobacco Use Types Packs/Day Years Used Date Smoking Tobacco: Never Smokeless Tobacco: Never Alcohol Use Standard Drinks/Week Comments Yes 0 (1 standard drink = 0.6 oz pur e alcohol) Comments Unknown Sex and Gender Information Value Date Recorded Sex Assigned at Not on file Legal Sex Female 10:15 PM EST Gender Identity Not on file Sexual Orientation Not on file Obstetrics History Last Filed Vital Signs Vital Sign Reading Time Taken Comments Blood Pressure 138/86 08/18/2022 12:58 PM EDT Pulse 67 08/18/2022 12:58 PM EDT Temperature - - Respiratory Rate - - Oxygen Saturation - - Inhaled Oxygen Concentration - - Weight 91.4 kg (201 lb 6.4 oz) 08/18/2022 12:58 PM EDT Height 172.7 cm (5' 8 ) 08/18/2022 12:58 PM EDT Body Mass Index 30.62 08/18/2022 12:58 PM EDT Plan of Treatment Health Maintenance Due Date Last Done Comments RSV Immunization Patients 60+ Years Old (1 - Risk 60-74 years 1-dose series) 2016 Cholesterol Screening (Lipid Panel) 03/05/2022 Colorectal Cancer Screening: Colonoscopy 03/05/2022 Depression Screening 03/05/2022 Falls Risk Assessment 03/05/2022 Hepatitis C Screening 03/05/2022 Osteoporosis Screening (Bone Density Screening) 03/05/2022 Social Influencers of Health Screening 03/05/2022 Breast Cancer Screening 03/31/2022 03/31/19, 04/03/2019, 03/28/2019, Additional history exists COVID-19 Vaccine ( season) 2023 02/16/2021, 07/10/2020, 06/18/2020 Influenza Vaccine (#1) 2023 , 01/09/2020, 12/25/2018, Additional history exists Pneumococcal Vaccine: 50+ Years (3 of 3 - PCV20 or PCV21) 06/14/2026 06/14/2021, 07/11/2006 DTaP,Tdap,and Td Vaccines (3 - Td or Tdap) 08/01/2027 07/31/2017, 07/11/2006 Zoster Vaccines Completed 03/24/2020, 01/09/2020 HIB Vaccines Aged Out No longer eligi ble based on patient's age to complete this topic HPV Vaccines Aged Out No longer eligi ble based on patient's age to complete this topic Hepatitis A Vaccines Aged Out No long er eligible based on patient's age to complete this topic Hepatitis B Vaccines Aged Out No long er eligible based on patient's age to complete this topic IPV Vaccines Aged Out No longer eligi ble based on patient's age to complete this topic MMR Vaccines Aged Out No longer eligi ble based on patient's age to complete this topic Meningococcal ACWY Vaccine Aged Out N o longer eligible based on patient's age to complete this topic Meningococcal B Vacine Aged Out No lo nger eligible based on patient's age to complete this topic RSV Immunization Patients Under 20 months Aged Out No longer eligible based on patient's age to complete this topic Varicella Vaccines Aged Out No longer eligible based on patient's age to complete this topic Procedures Procedure Name Priority Date/Time Associated Diagnosis Comments SCR MAMMO BI INCL CAD Routine 03/31/2020 8:38 AM EST Encounter for screening mammogram for malignant neoplasm of breast from Last 3 Months or Most Recently Relevant to Health Maintenance Results * SCR MAMMO BI INCL CAD (03/31/2020 8:38 AM EST) Anatomical Region Laterality Modality Radiographic Anitha ging 03/28/2019 8:13 AM EST Narrative 03/31/2020 1:59 PM EST This is a summary report. The complete report is available in the patient's medical record. If you cannot access the medical record, please contact the sending organization for a detailed fax or copy. Full field digital screening mammography, reviewed with CAD and compared to previous mammograms dating back to 12/11/2013 with most recent of 03/28/2019. ??The breasts are composed of fatty and fibroglandular tissue. ??No suspicious mass, architectural distortion or suspicious calcifications are identified. IMPRESSION: : No mammographic evidence of malignancy. BIRADS 1-Negative; N. 5 year breast cancer risk assessment 1.4 % Lifetime breast cancer risk assessment 6.0 % Breast cancer risk category Low (<15%) Procedure Note Gila Alonso MD - 03/15/2022 This is a summary report. The complete report is available in thepatient's medical record. If you cannot access the medical record, pleasecontact the sending organization for a detailed fax or copy. Full field digital screening mammography, reviewed with CAD and comparedto previous mammograms dating back to 12/11/2013 with most recent of03/28/2019. The breasts are composed of fatty and fibroglandular tissue.No suspicious mass, architectural distortion or suspicious calcificationsare identified. IMPRESSION: : No mammographic evidence of malignancy. BIRADS 1-Negative; N. 5 year breast cancer risk assessment 1.4 % Lifetime breast cancer risk assessment 6.0 % Breast cancer risk category Low (<15%) us Belén Sibley MD IMG XR PROCEDURES Final Resu lt from Last 3 Months or Most Recently Relevant to Health Maintenance Advance Directives Documents on File Type Date Recorded Patient Timber Packer Expl anation Health Care Decision (hx) 02/18/2011 AD ADAMS DIRECTIVE Health Care Decision (hx) 02/18/2011 AD ADAMS DIRECTIVE Health Care Decision (hx) 02/18/2011 AD ADAMS DIRECTIVE Health Care Decision (hx) 02/18/2011 AD ADAMS DIRECTIVE Health Care Decision (hx) 02/18/2011 AD ADAMS DIRECTIVE Care Teams Robotics Testing Technician Relationship Specialty Start Date End Date Tashia Rice MD [address] [place] [address] PCP - General Internal Medicine 06/10/21
== END 2024-05-15 14:40 | disposition home or self-care (01) ==
PROVIDERS: PCP Internal Medicine; Visit Provider Internal Medicine
DX: I48.0 Paroxysmal atrial fibrillation (principal); R55 Syncope and collapse; W19.XXXA Unspecified fall, initial encounter

== ENCOUNTER → 2024-05-15 13:16 | Outpatient (BNVA) | payer MEDICARE, SELFPAY | PROVIDERS: PCP Internal Medicine; Visit Provider Internal Medicine | DX: I48.0 Paroxysmal atrial fibrillation (principal); R55 Syncope and collapse; Z91.81 History of falling | CPT/HCPCS: 99212 ==

== ENCOUNTER 2024-05-16 13:06 | Outpatient (AMB) | payer MEDICARE, SELFPAY ==
[2024-05-16 13:10] VITALS: BP 110/60; PULSE 64; BMI 31.4
--- NOTE | 2024-05-16 13:10 | A.OFFVIS_ITS ---
Vital Signs 05/16/24 13:10 Height 5 ft 8 in Weight 206 lb 12.697 oz BMI 31.4 BP 110/60 Blood Pressure Location Lt brachial Position Sitting Pulse 64 Pulse Source Pulse Oximeter Intake Visit Reasons: f/u per NS Shaft Headman Required: No Accompanied by: Self / Same As Patient Allergies oxycodone [From PERCODAN] Allergy (Intermediate, Verified 05/15/24 13:35) HIVES rosuvastatin [From Crestor] Adverse Reaction (Intermediate, Verified 05/15/24 13:35) body aches Hydrocodone-Acetaminophen Adverse Reaction (Unknown, Uncoded 05/15/24 13:35) nausea and vomiting Medication List - Last Reconciled 05/16/24 by Vladimir Manley MD acetaminophen (Acetaminophen Extra Strength) 1,000 mg PO DAILY PRN albuterol sulfate 90 mcg/actuation 2 inhalations inhalation Q6-8H PRN apixaban (Eliquis) 5 mg PO BID ascorbic acid (vitamin C) 1,000 mg PO DAILY Breo Ellipta 100-25 mcg/dose (fluticasone furoate-vilanterol) 1 inh inhalation DAILY NS cholecalciferol (vitamin D3) (Vitamin D3) 50 mcg PO DAILY docusate sodium 100 mg PO BEDTIME evolocumab (Repatha SureClick) 140 mg subcut Q2W ezetimibe (Zetia) 10 mg PO DAILY fluoxetine 20 mg PO DAILY hydroxyzine HCl 12.5 - 25 mg PO DAILY PRN lamotrigine 250 mg PO BEDTIME latanoprost 0.005% 1 drp ophthalmic (eye) BEDTIME metoprolol tartrate 50 mg PO BID hbkvcnrrxqqp-ommarcfo-cfyrpj (Multivitamin 50 Plus tablet) 1 tab PO DAILY trazodone 100 - 200 mg PO BEDTIME HPI Comments Details: Rowena returns for follow-up regarding atrial fibrillation. To recall, she had atrial fibrillation ablation 2013. Subsequently, was on short-term flecainide for palpitations thought to be from atrial fibrillation but later stopped. She was doing well for many years but more recently again having atrial fibrillation. Started beta-blockers with some improvement. Then flecainide was started. As she continued to get palpitations, underwent another atrial fibrillation ablation this year. After that, she states she feels fine. No further palpitations. No new concerns. 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 Has dyslipidemia. She was on Pravastatin but the LFTs were apparently abnormal and that led to holding it but the LDL went up really high. Currently taking Repatha/Zetia. Most recently, it seems had she came with syncope and seen by my colleague Dr. Anguiano. Unclear etiology. She thinks she blacked out but at the same time she states that she might have also stepped on ice. Hence not clear what is true. There were question of orthostatic hypotension versus arrhythmias. Hence she underwent implantable loop monitor for that. We have not had any alerts since implant as it was just a few days ago. 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 Are you a primary managed care provider to a significant other at home: Yes Do you presently have visiting nurse or other home services: No Alcohol intake: current Alcohol intake frequency: holidays/special occasions only Patient Tobacco Use Status: Never used Tobacco e-Cigarette/Vaping Use: Never Used service: No Current occupational status: retired 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 Current occupational exposures/hazards: No Cognitive needs: No Hearing needs: No Vision needs: Yes Review of Systems Const Denies chills, Denies fatigue, Denies fever(s), Denies weight gain and Denies weight loss ENT Denies dizziness Card Denies chest pain, Denies leg edema, Denies lightheadedness, Denies palpitations, Denies dyspnea on exertion, Denies orthopnea and Denies other Resp Denies cough and Denies dyspnea on exertion GI Denies hematochezia and Denies change in stool character Musc Denies abnormal gait, Denies muscle weakness, Denies numbness, Denies radiating pain into limb and Denies tingling Neuro Denies abnormal gait, Denies dizziness, Denies numbness and Denies tingling Endo Denies fatigue and Denies palpitations Physical Exam Vital Signs: Last Vital Signs Pulse 64 05/16/24 13:10 BP 110/60 05/16/24 13:10 BMI result Body Mass Index 31.4 Const General: comfortable and no acute distress Orientation/consciousness: patient oriented x3 HEENT Other: Unremarkable Head: Yes normal to inspection Neck Neck: Yes normal visual inspection Chest Chest palpation & inspection: normal inspection of the chest Resp Auscultation: clear to auscultation bilaterally Cardio Palpation: normal PMI Heart sounds: S1 normal heart sound present, S2 normal heart sound present, no gallops, no murmurs and no rubs GI Palpation (GI): Soft to palpation Back/Spine/Pelvis Other: unremarkable Skin General skin exam: no rashes or lesions noted Neuro General: patient oriented x3 Extrem General: Yes normal to inspection Psych Mental Status: mental status grossly normal Assessment & Plan Assessment & Plan (1) PAF (paroxysmal atrial fibrillation): Comment: s/p catheter ablation 09/2023 [facility] Code(s): I48.0 - Paroxysmal atrial fibrillation Category: Medical Plan: Atrial fibrillation ablation in 2013 and september 2023. No longer on flecainide. Remains on metoprolol and Eliquis. (2) Other and unspecified hyperlipidemia: Code(s): E78.5 - Hyperlipidemia, unspecified Category: Medical Plan: Statin intolerant. Also had some LFT issues. Currently on Repatha and Zetia. Most recent LDL 83 mg/dL. In the past, as much as 249 mg/dL. (3) Atherosclerotic cardiovascular disease: Code(s): I25.10 - Atherosclerotic heart disease of [place] coronary artery without angina pectoris Category: Medical Plan: Previously, underwent coronary CTA. She has nonobstructive disease in the LAD, diagonal, RCA. Myocardial perfusion imaging study from 2019 showed normal perfusion. Echocardiogram from [facility] 07/2023 with LVEF of 55-60%, no wall motion abnormalities. Otherwise unremarkable. Repeat perfusion imaging from [facility] 07/2023 is unremarkable. Risk factor modification. (4) Syncope and collapse: Code(s): R55 - Syncope and collapse Category: Medical Plan: Uncertain etiology. Patient isn't sure if she stepped on ice or if she truly blacked out. We will follow implantable loop recorder remotely. Vitals seem to be normal range today as well as during hospitalization. Coding Level of Care Code Est Pt Level 4 (09131) Complex EM visit Add On G2211 Diagnoses PAF (paroxysmal atrial fibrillation) I48.0 Other and unspecified hyperlipidemia E78.5 Atherosclerotic cardiovascular disease I25.10 Syncope and collapse R55
--- OUTSIDE RECORDS SUMMARY | 2024-05-16 14:01 | XMS_ITS | Clinical Summary ---
Author Organization [facility] Address [address] [place] [address] Care Team Providers Care Contour Grinder Name Role Phone Tashia Rice MD Primary Care Provider [phone] Surgical History Surgery Date Site/Laterality Comments OTHER SURGICAL HISTORY PROCEDURE: ARTHROSCOPY PROCEDURE NEC; COMMENT: knee ENDOMETRIAL ABLATION 05/03/2006 PROCEDURE: ND ENDOMETRIAL ABLTJ THERMAL W/O HYSTEROSCOPIC GUID; COMMENT: Novasure COLONOSCOPY 2001 PROCEDURE: ND COLONOSCOPY FLX DX W/COLLJ SPEC WHEN PFRMD; COMMENT: diverticulosis COLONOSCOPY 01/07/08 PROCEDURE: ND COLONOSCOPY STOMA DX INCLUDING COLLJ SPEC SPX; COMMENT: Up to cecum, mild sigmoid diverticulosis, tortuous sigmoid colon, otherwise normal colon exam OTHER SURGICAL HISTORY 02/2011 PROCEDURE: ND COLECTOMY PARTIAL W/ANASTOMOSIS; COMMENT: diverticulitis TOTAL KNEE ARTHROPLASTY 2017 Bilateral PROCEDURE: ND ARTHRP KNE CONDYLE&PLATU MEDIAL&LAT COMPARTMENTS COLONOSCOPY 08/29/2018 [...] 03/18/2005 DX:Depressiv e disorder; COMMENT: Admitted to [facility] status post suicide attempt/Vicodin overdose 01/20/14 Allergic rhinitis 03/18/2005 DX:Allergic rh initis Essential tremor 12/13/2018 DX:Essential tr emor Family History Medical History Relation Name Comments Bipolar disorder Daughter Other: CAD Father PTCA, stents, a t age 72, from [place] at age 74 No Known Problems Maternal Grandfather No Known Problems Maternal Grandmother Other: TIA Mother No Known Problems Other No Known Problems Paternal Grandfather No Known Problems Paternal Grandmother No Known Problems Sister Breast cancer Neg Hx Colon cancer Neg Hx Ovarian cancer Neg Hx Relation Name Status Comments Daughter Father [place] 74yo, lipids ,prostate cancer Maternal Grandfather Maternal [...] Documents on File Type Date Recorded Patient E Learning Developer Expl anation Health Care Decision (hx) 02/18/2011 AD ADAMS DIRECTIVE Health Care Decision (hx) 02/18/2011 AD ADAMS DIRECTIVE Health Care Decision (hx) 02/18/2011 AD ADAMS DIRECTIVE Health Care Decision (hx) 02/18/2011 AD ADAMS DIRECTIVE Health Care Decision (hx) 02/18/2011 AD ADAMS DIRECTIVE Care Teams Contour Grinder Relationship Specialty Start Date End Date Tashia Rice MD [address] [place] [address] PCP - General Internal Medicine 06/10/21
--- OUTSIDE RECORDS SUMMARY | 2024-05-16 14:01 | XMS_ITS ---
[facility] Address [address] [place] [address] Care Team Providers Care Sequencing Machine Operator Name Role Phone Bonny Bueno MD Primary Care Provider Laura Quintana Unavailable [phone] Allergies Allergen (clinical drug ingredient) Drug/Non Drug [...] Notes Problem Plantar fasciitis of left foot (0813957442003 9101) Plantar fasciitis of left foot (M72.2) Active confirmed Vital Signs Blood pressure systolic 120 mm Hg 04/04/19 25 Blood pressure diastolic 80 mm Hg 025 Height 5ft 8inch in 04/04/2024 Weight 202 lbs 04/04/2024 BMI 30.71 kg/m2 04/04/2024 Encounters Encounter Location Date Provider Diagnosis [facility] [address] [place] [address] 04/04/2024 Laura Wheeler Pain in left foot [...] Detail Notes Injection Tendon Sheath or Fascia 34575, J 1702 Injection - Plantar Fascia w/ mixture of [...] out of 10 Progress Notes * Cristina DOMINIQUEOB: (68 yo F)Acc No.[id number]:04/04/2024 Progress Notes Patient:?Rowena DOMINIQUE Provider:?Laura Wheeler DPM :1955???Age:68 Y???Sex:Female D ate:04/04/2024 Address:[address] [place] [address], [place] Pcp:Bonny Bueno MD Subjective: * Chief Complaints: [...] Foot, LAT, LO, MO, LEFT??Taken by trained?Podiatric Disbursement Clerk (?EF).?Findings:? normal bone and soft tissue density [...] with: INJECTIONTHERAPY.pdf (INJECTIONTHERAPY.pdf)?? * Procedures:?Injection:?Tendon Sheath or Fascia?49995, J0702 Injection - Plantar Fascia w/ mixture [...] ( 0-1) out of 10.? * Procedure Codes:?74334 X-RAY EXAM OF LEFT FOOT 3V, Modifiers: [...] Interfil injection therapy, as well as surgical [place]/Endoscopic Fasciitomy surgical procedures if needed. Recommendations were [...] DPM Date:?0 04/04/2024 Generated for Judah huggins/Consuelo/Rodrigue on:?05/16/2024 02:01 PM EST History and Physical Notes * [...] LO, MO, LEFT Taken by trained Podiatric Disbursement Clerk ( EF) Clinical Indication(s): Evaluate for Fra [...]
--- OUTSIDE RECORDS SUMMARY | 2024-05-16 14:01 | XMS_ITS ---
Author Organization [facility] Address [address] [place] [address] Care Team Providers Care Advertising Copywriter Name Role Phone Bonny Bueno MD Primary Care Provider Laura Quintana [phone] REASON FOR VISIT cx appt Encounters Encounter Location Date Provider Diagnosis [address] [address] 05/01/2024 Laura Wheeler Plan Of Treatment No Information Progress Notes * Cristina DOMINIQUEOB: (69 yo F)Acc No.[id number]:05/01/2024 Patient:?Rowena DOMINIQUE :1955???Age:69 Y???Sex:Female Address:[address] [place] [address], [address] * true * Date:? Generated for Judah huggins/Consuelo/eTransmitting on:?05/16/2024 02:01 PM EST
--- OUTSIDE RECORDS SUMMARY | 2024-05-16 14:01 | XMS_ITS | Patient Health Record ---
Author Organization [facility] Address [address] [place] [address] Care Team Providers Care Survey Statistician Name Role Phone Bonny Bueno MD Primary Care Provider Laura Quintana Unavailable [phone] Allergies Allergen (clinical drug ingredient) Drug/Non Drug [...] Referring Provider Last Name Myles Referred Organization [facility] Referred Provider Laura Wheeler Referred Address [address] [place], [place],[address], Referred Provider Specialty Podiatry Referral Priority Routine [...] Notes Problem Plantar fasciitis of left foot ([id number] 9101) Plantar fasciitis of left foot (M72.2) Active confirmed Vital Signs Blood pressure diastolic 80 mm Hg 04/04/2024 Height 5ft 8inch in 04/04/2024 Blood pressure systolic 120 mm Hg 04/04/2024 Weight 202 lbs 04/04/2024 BMI 30.71 kg/m2 04/04/2024 Encounters Encounter Location Date Provider Diagnosis [facility] [address] 04/04/2024 Laura Wheeler Pain in left foot M79.672 ; Plantar fasciitis of left foot M72.2 ; Calcaneal spur, left foot M77.32 and Bursitis of left foot M77.[address] [address] 02/21/2024 Laura Wheeler [address] [address] 05/01/2024 Laura Wheeler Assessments Encounter Date Diagnosis [...] Insured Coverage Start Date Coverage End Date [facility] [address] [place] [address] [id number] Rowena Page Self - patient is the insured Medical (General) History Medical History History ICD Code Anxiety asthma CAD (Cholesterol) Cataracts covid-19 Depression Diverticulosis Glaucoma Heart disease High Blood Pressure Chicken pox Joint implants/screws Surgical History Surgery Date(Month/Year) cardiac ablation bilateral knee replacement bowel resection
--- OUTSIDE RECORDS SUMMARY | 2024-05-16 14:02 | XMS_ITS ---
Author Organization [facility] Address [address] [place] [address] Care Team Providers Care Banquet Bartender Name Role Phone Myles SANDERSON, Bonny Primary Care Provider Laura Quintana Unavailable [phone] Encounters Encounter Location Date Provider Diagnosis [facility] [address] [place] [address] 05/09/2024 Laura Wheeler Plan Of Treatment No Information Progress Notes * DOMINIQUEChetan DENNISileDOB: (69 yo F)Acc No.[id number]:05/09/2024 Progress Notes Patient:?Rowena DOMINIQUE Provider:?Laura Wheeler DPM :1955???Age:69 Y???Sex:Female D ate:05/09/2024 Address:[address] [place], [place] [id number] Pcp:Bonny Bueno MD Subjective: * Chief Complaints: [...] DPM Date:?0 05/09/2024 Generated for Anai bhavna/Consuelo/eTransmitting on:?05/16/2024 02:01 PM EST
== END 2024-05-16 13:29 | disposition home or self-care (01) ==
PROVIDERS: PCP Internal Medicine; Visit Provider Internal Medicine
DX: I48.0 Paroxysmal atrial fibrillation (principal); E78.5 Hyperlipidemia, unspecified; I25.10 Atherosclerotic heart disease of native coronary artery without angina pectoris; R55 Syncope and collapse
CPT/HCPCS: 99214; G2211

== ENCOUNTER → 2024-05-16 13:06 | Outpatient (BNVA) | payer MEDICARE, SELFPAY | PROVIDERS: PCP Internal Medicine; Visit Provider Internal Medicine | DX: I48.0 Paroxysmal atrial fibrillation (principal); I25.10 Atherosclerotic heart disease of native coronary artery without angina pectoris; E78.5 Hyperlipidemia, unspecified; R55 Syncope and collapse | CPT/HCPCS: 99212 ==

== ENCOUNTER → 2024-07-10 23:59 | Outpatient (BNV) | payer MEDICARE, SELFPAY ==
--- NOTE | 2024-07-21 15:11 | MHC.OFFVIS ---
Intake Visit Reasons: Remote ILR check- [employer] Allergies oxycodone [From PERCODAN] Allergy (Intermediate, Verified 07/21/24 08:58) HIVES rosuvastatin [From Crestor] Adverse Reaction (Intermediate, Verified 07/21/24 08:58) body aches Hydrocodone-Acetaminophen Adverse Reaction (Unknown, Uncoded 07/21/24 08:58) nausea and vomiting PFSH Medical History Hypertension Asthma Anxiety Chronic low back pain On anticoagulant therapy On beta francisco at home PAF (paroxysmal atrial fibrillation) Surgical History H/O cardiac radiofrequency ablation H/O colonoscopy History of evacuation of hematoma History of bowel resection History of knee surgery Family History Father Myocardial infarction CVD (cardiovascular disease) Mother Mental health disorder Sister Mental health disorder Social History Household Members: Spouse, Family and Children 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:: , 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, 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, 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 Are you a primary specialist wound care to a significant other at home: Yes Do you presently have visiting nurse or other home services: No Alcohol intake: current Alcohol intake frequency: a few times a week Alcohol type: wine Patient Tobacco Use Status: Never used Tobacco Smoked in Last 30 Days: No e-Cigarette/Vaping Use: Never Used Use of substances other than those prescribed or required for medical reasons: No Advance Directives: Yes Advance Directives on File: Yes Advance Directives Date on File: 05/24/23 Do you have a plan to hurt others: No Plan service: No Current occupational status: retired 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 [id number] Cardiac Interrogation, subcut cardiac rhythm monitor Procedure code (CPT) selection complete Assessment & Plan Assessment & Plan (1) Implantable loop recorder present: Code(s): Z95.818 - Presence of other cardiac implants and grafts Category: Medical (2) PAF (paroxysmal atrial fibrillation): Comment: s/p catheter ablation 09/2023 [facility] Code(s): I48.0 - Paroxysmal atrial fibrillation Category: Medical (3) Syncope: Comment: ? LOC, ER visit 05/08/2024 negative CTA of the brain neck, EEG ORDERED Code(s): R55 - Syncope and collapse Category: Medical Qualifiers: Syncope type: unspecified Qualified Code(s): R55 - Syncope and collapse Plan x Coding Level of Care Code Procedure Only Diagnoses Implantable loop recorder present Z95.818 PAF (paroxysmal atrial fibrillation) I48.0 Syncope, unspecified syncope type R55 Syncope type: unspecified CPT Codes Cardiac Device Check - Cardiac Device 16: [id number] Cardiac Interrogation, subcut cardiac rhythm monitor ([id number])
== END ==
PROVIDERS: PCP Internal Medicine; Visit Provider Internal Medicine
DX: I48.0 Paroxysmal atrial fibrillation (principal); Z95.818 Presence of other cardiac implants and grafts; R55 Syncope and collapse
CPT/HCPCS: 93298

== ENCOUNTER 2024-07-21 08:45 | Emergency (ER) | payer MEDICARE, SELFPAY ==
--- NOTE | ~2024-07-21 | XR_ITS ---
CLINICAL HISTORY: CP Exam: AP portable chest x-ray. Comparison: March 25, 2024. Findings: Lungs are well inflated. Cardiac silhouette is within normal limits. Interval placement of a loop recorder device. No focal areas of consolidation. Likely atelectasis of the left lung base with trace left pleural effusion. Mild central interstitial prominence. Impression: Question minor volume overload. This document has been electronically signed by: Dennis Nur MD on 07/21/2024 09:39:22
[2024-07-21 08:54] VITALS: BP 116/80; BP 132/78; PULSE 62; PULSE 70; RESP 13; TEMP 36.6; O2SAT 92; O2SAT 95; BMI 32.2
--- NOTE | 2024-07-21 09:04 | ED.CHESTPAIN ---
HPI - Chest Pain General Chief Complaint: Chest Pain Stated Complaint: CHEST PAIN Time Seen by Provider: 07/21/24 08:53 Source: patient Mode of arrival: ambulatory Limitations: no limitations History of Present Illness ED Provider: DR. Paniagua HPI narrative: 68-year-old female with history of PE AFib on Eliquis, HTN, HLD, asthma, depression/anxiety, [facility] when she was doing her [facility] suddenly started to have left-sided chest pain with palpitation, pain radiates to the neck, had a short period of shortness of breath, patient had a history of paroxysmal AFib, patient's sat herself up because felt lightheadedness. No weakness, no numbness. Now patient feels slowly getting back to her normal baseline with a complete resolution of her symptoms. Related Data Home Medications ?Medication ?Instructions ?Recorded ?Confirmed lamotrigine 100 mg tablet 250 mg PO BEDTIME 10/01/20 05/16/24 latanoprost 0.005 % eye drops 1 drp ophthalmic (eye) BEDTIME 10/01/20 05/16/24 trazodone 100 mg tablet 100 - 200 mg PO BEDTIME Sleep 10/01/20 05/16/24 fluoxetine 20 mg capsule 20 mg PO DAILY 12/01/21 05/16/24 ascorbic acid (vitamin C) 500 mg 1,000 mg PO DAILY 06/02/22 05/16/24 capsule cholecalciferol (vitamin D3) 50 50 mcg PO DAILY 06/08/22 05/16/24 mcg (2,000 unit) capsule (Vitamin D3) yrlcsqyadwdk-vrhvmbaj-tlseyz 1 tab PO DAILY 06/08/22 05/16/24 tablet (Multivitamin 50 Plus tablet) acetaminophen 500 mg tablet 1,000 mg PO DAILY PRN Pain 09/12/23 05/16/24 (Acetaminophen Extra Strength) hydroxyzine HCl 25 mg tablet 12.5 - 25 mg PO DAILY PRN Anxiety 05/08/24 05/16/24 Previous Rx's ?Medication ?Instructions ?Recorded docusate sodium 100 mg capsule 100 mg PO BEDTIME #90 caps 12/20/21 ezetimibe 10 mg tablet (Zetia) 10 mg PO DAILY #90 tabs 09/12/23 albuterol sulfate 90 mcg/actuation 2 inh inhalation Q6-8H PRN 03/26/24 aerosol inhaler shortness of breath or wheezing #8.5 grams evolocumab 140 mg/mL subcutaneous 140 mg subcut Q2W #2 mL 05/10/24 pen injector (Nicko Salick) Breo Ellipta 100 mcg-25 mcg/dose 1 inh inhalation DAILY #60 ea 07/01/24 powder for inhalation (fluticasone furoate-vilanterol) metoprolol tartrate 25 mg tablet 50 mg (2 x 25 mg) PO BID #180 tabs 07/05/24 apixaban 5 mg tablet (Eliquis) 5 mg PO BID #180 tabs 07/09/24 Allergies Allergy/AdvReac Type Severity Reaction Status Date / Time oxycodone [From PERCODAN] Allergy Intermediate HIVES Verified 07/21/24 08:58 rosuvastatin [From Crestor] AdvReac Intermediate body aches Verified 07/21/24 08:58 Hydrocodone-Acetaminophen AdvReac Unknown nausea and Uncoded 07/21/24 08:58 vomiting Review of Systems Review of Systems: All other systems are reviewed and are negative Constitutional: Reports as per HPI and Reports no additional constitutional complaints Eyes: Reports as per HPI and Reports no additional eye complaints Reports system reviewed and no additional complaints, except as documented Cardiovascular: Reports as per HPI and Reports no additional cardiovascular complaints Respiratory: Reports as per HPI and Reports no additional respiratory complaints Gastrointestinal: Reports as per HPI and Reports no additional gastrointestinal complaints Genitourinary: Reports no additional female genitourinary complaints Musculoskeletal: Reports no additional musculoskeletal complaints Skin/Breast: Reports system reviewed and no additional complaints, except as docu Psychiatric: Reports no additional psychiatric complaints Endocrine: Reports no additional endocrine complaints Hematologic/Lymphatic: Reports no additional hematologic/lymphatic complaints Allergic/Immunologic: Reports no additional allergic/immunologic complaints Reports system reviewed and no additional complaints, except as documented and Reports Abnormal speech present [facility] Past Medical History Medical History Hypertension Asthma Anxiety Chronic low back pain On anticoagulant therapy On beta francisco at home PAF (paroxysmal atrial fibrillation) Surgical History H/O cardiac radiofrequency ablation H/O colonoscopy History of evacuation of hematoma History of bowel resection History of knee surgery Family History Family History Father Myocardial infarction CVD (cardiovascular disease) Mother Mental health disorder Sister Mental health disorder Social History Social History Household Members: Spouse, Family and Children 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:: , 2 children, 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, 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 Are you a 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 administrator to a significant other at home: Yes Do you presently have visiting nurse or other home services: No Alcohol intake: current Alcohol intake frequency: a few times a week Alcohol type: wine Patient Tobacco Use Status: Never used Tobacco Smoked in Last 30 Days: No e-Cigarette/Vaping Use: Never Used Use of substances other than those prescribed or required for medical reasons: No Advance Directives: Yes Advance Directives on File: Yes Advance Directives Date on File: 05/24/23 Do you have a plan to hurt others: No Plan service: No Current occupational status: retired 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 Blood pressure elevated. Heart rate normal. Respiratory rate normal. Temperature normal. Oxygen saturation normal. Appearance: Alert. Oriented X3. No acute distress. Head: Normal external exam. Normocephalic. Atraumatic. No Woodard signs noted. No raccoon eyes noted Eyes: PERRLA. EOMI. Conjunctiva and sclera normal. Eyelids normal. ENT: TM's Normal. Pharynx normal. Uvula midline. Moist mucous membranes. No trismus noted. No drooling noted. No muffled voice noted. Neck: Normal inspection. Neck supple. FROM. No adenopathy. Thyroid Normal. No meningeal signs. No neck mass noted. CVS: Normal heart rate and rhythm. Heart sound normal. No murmurs noted. Pulses normal throughout. Respiratory: No respiratory distress. Painless inspiration. Breath sounds normal. No wheezes/rales/rhonchi noted. Chest nontender. No accessory muscle usage noted or decreased air movement noted. Abdomen: Soft and nontender. Bowel sounds normal in all 4 quadrants. No distention noted. No organomegaly noted. No visible injury noted. Back: No CVA tenderness. Full range of motion noted. Skin: Skin warm and dry. Normal skin color. Normal skin turgor. No rashes/lesions/lacerations noted. Extremities: No lower extremity edema. Extremities exhibit normal range of motion. Extremities nontender. Neuro: Oriented X 3. Cranial nerve exam: II-XII are grossly intact No motor deficit. No sensory deficit. Reflexes normal. Course Reevaluation(s) Reevaluation #1: Improvement of chest pain, patient has been in the emergency department for 3-4 hours under monitoring with no obvious dysrhythmia. Negative cardiac workup. No risk for pulmonary embolism. Time: 12:47 Medical Decision Making Differential Diagnosis Differential Diagnoses: The differential diagnosis associated with the presentation includes (Dysrhythmia, atrial fibrillation, ACS, pneumonia, pneumothorax, pleural effusion, electrolyte derangement, severe anemia.) Admission/Observation Consideration of admission/observation: Escalation of care including admission/observation considered Lab Data MDM Lab Attestation statement: I reviewed the patient's lab results. 07/21/24 09:19 07/21/24 09:19 Labs: Lab Results 07/21/24 Range/Units 09:19 WBC 4.7 L (4.8-10.8) X10*3/uL RBC 4.27 (4.20-5.50) X10*6/uL Hgb 13.5 (12.0-16.0) g/dl Hct 40.2 (37.0-47.0) % MCV 94.1 (80.0-98.0) fL MCH 31.6 (27.0-33.0) pg MCHC 33.6 (31.0-35.0) g/dl RDW 12.8 (11.0-16.0) % Plt Count 155 L (160-400) X10*3/uL MPV 9.3 L (9.4-12.3) fL Immature Gran % (Auto) 0.2 (0.0-0.4) % Neut % (Auto) 61.1 (45-73) % Lymph % (Auto) 25.5 (20-40) % Morris % (Auto) 8.3 (2-11) % Eos % (Auto) 4.5 H (0-4) % Baso % (Auto) 0.4 (0-2) % Lymph # (Auto) 1.2 (1.2-4.9) X10*3/uL Morris # (Auto) 0.4 (0.1-1.2) X10*3/uL Eos # (Auto) 0.2 (0.0-0.4) X10*3/uL Baso # (Auto) 0.0 (0.0-0.2) X10*3/uL Abs Immat Gran (auto) 0.01 (0.00-0.03) X10*3/uL Absolute Neuts (auto) 2.9 (2.0-8.3) x10*3/uL Absolute Nucleated RBC 0.000 (0.0-0.012) X10*3/uL Nucleated RBC % (auto) 0.0 (0.0-0.2) /100WBC PT 12.5 H (10.9-12.4) SEC INR 1.1 (0.9-1.1) D-Dimer High Sensitivty < 150 NG/ML Sodium 142 (135-145) mmol/L Potassium 4.5 (3.3-5.1) mmol/L Chloride 104 (96-108) mmol/L Carbon Dioxide 30 H (22-29) mmol/L Anion Gap 13 (12-20) BUN 16 (9-16) mg/dL Creatinine 0.86 (0.5-1.4) mg/dL Estim Creat Clear Calc 75.9 Estimated GFR > 60 Random Glucose 97 (60-115) mg/dL Calcium 9.5 (8.4-10.2) mg/dL Total Bilirubin 0.5 (0.0-1.0) mg/dL Direct Bilirubin 0.1 (0.0-0.5) mg/dL AST 36 H (5-31) U/L ALT 39 H (0-31) U/L Alkaline Phosphatase 79 (39-117) U/L Troponin I High Sens < 2.7 (<3.5-17.0) ng/L B-Natriuretic Peptide 116 H (<100) pg/mL Total Protein 7.3 (6.5-8.0) g/dL Albumin 4.1 (3.5-5.0) g/dL Lipase 10 (8-78) U/L Influenza Type A (PCR) NEGATIVE (Negative) Influenza Type B (PCR) NEGATIVE (Negative) RSV RNA Qual (PCR) NEGATIVE (Negative) SARS-CoV-2 RNA (RT-PCR) NEGATIVE (Negative) Independent Interpretation I performed an independent interpretation of an: Plain X-Ray (Chest: Question minor volume overload.) Radiology Impression Discussion of test interpretation with radiology: I have reviewed the radiologist's reading. Discharge Plan Discharge Clinical Impression: Heart palpitations Patient Disposition: Home, Self-Care Instructions: Heart Palpitations (ED) Prescriptions: No Action albuterol sulfate 90 mcg/actuation HFA aerosol inhaler 2 inh inhalation Q6-8H PRN (Reason: shortness of breath or wheezing) Qty: 8.5 2RF Repatha SureClick 140 mg/mL pen injector 140 mg SUBCUT Q2W Qty: 2 5RF fluticasone furoate-vilanterol [Breo Ellipta] 100-25 mcg/dose blister with device 1 inh inhalation DAILY Qty: 60 3RF metoprolol tartrate 25 mg tablet 50 mg PO BID Qty: 180 3RF Eliquis 5 mg tablet 5 mg PO BID Qty: 180 3RF cholecalciferol (vitamin D3) [Vitamin D3] 50 mcg (2,000 unit) Capsule 50 mcg PO DAILY Multivitamin 50 Plus Tablet 1 tab PO DAILY acetaminophen [Acetaminophen Extra Strength] 500 mg tablet 1,000 mg PO DAILY PRN (Reason: Pain) hydroxyzine HCl 25 mg tablet 12.5 - 25 mg PO DAILY PRN (Reason: Anxiety) fluoxetine 20 mg capsule 20 mg PO DAILY lamotrigine 100 mg tablet 250 mg PO BEDTIME latanoprost 0.005 % drops 1 drp ophthalmic (eye) BEDTIME trazodone 100 mg tablet 100 - 200 mg PO BEDTIME docusate sodium 100 mg capsule 100 mg PO BEDTIME Qty: 90 3RF ascorbic acid (vitamin C) 500 mg capsule 1,000 mg PO DAILY ezetimibe [Zetia] 10 mg tablet 10 mg PO DAILY Qty: 90 3RF Referrals: Bonny Bueno MD [Primary Care Provider] - Vladimir Manley MD [Physician] - Print Language: Greek
--- NOTE | 2024-07-21 09:06 | ECG_ITS ---
Test Reason : CHEST PAIN Blood Pressure : */* mmHG Vent. Rate : 62 BPM Atrial Rate : 62 BPM P-R Int : 138 ms QRS Dur : 78 ms QT Int : 424 ms P-R-T Axes : -5 62 14 degrees QTcB Int : 430 ms Normal sinus rhythm Low voltage QRS Cannot rule out Anteroseptal infarct (cited on or before 07-May-2024) Abnormal ECG When compared with ECG of 07-May-2024 15:14, Questionable change in initial forces of Anterior leads Referred By: Buddy Paniagua Electronically Signed By: KENNEDY JEWELL
[2024-07-21 09:23] VITALS: BP 132/78; PULSE 62; RESP 13; TEMP 36.6; O2SAT 92
--- NOTE | 2024-07-21 09:24 | MHC.EDTECH ---
EKG was taken and read by the ED provider, and blood was drawn and send to the lab waiting for result, Patient resting quietly on her bed within call nevarez in her reach
[2024-07-21 09:26] LABS: MANUAL DIFF FLAG NO
[2024-07-21 09:32] LABS: Basophils Percent Auto 0.4 % (0-2); Eosinophils Absolute Auto 0.2 X10*3/uL (0.0-0.4); Eosinophils Percent Auto 4.5 % (0-4); Hematocrit 40.2 % (37.0-47.0); Hemoglobin 13.5 g/dl (12.0-16.0); Imm Gran Abs Auto 0.01 X10*3/uL (0.00-0.03); Imm Gran Pct Auto 0.2 % (0.0-0.4); Lymphocytes Absolute Auto 1.2 X10*3/uL (1.2-4.9); Lymphocytes Percent Auto 25.5 % (20-40); Mean Corpuscular HGB Conc 33.6 g/dl (31.0-35.0); Mean Corpuscular Hemoglobin 31.6 pg (27.0-33.0); Mean Corpuscular Volume 94.1 fL (80.0-98.0); Mean Platelet Volume 9.3 fL (9.4-12.3); Monocytes Absolute Auto 0.4 X10*3/uL (0.1-1.2); Monocytes Percent Auto 8.3 % (2-11); Neutrophils Absolute Auto 2.9 x10*3/uL (2.0-8.3); Neutrophils Percent Auto 61.1 % (45-73); Platelet Count 155 X10*3/uL (160-400); Red Blood Count 4.27 X10*6/uL (4.20-5.50); Red Cell Distribution Width 12.8 % (11.0-16.0); White Blood Count 4.7 X10*3/uL (4.8-10.8)
[2024-07-21 09:39] LABS: INTERNATIONAL NORM RATIO 1.1 (0.9-1.1); Prothrombin Time 12.5 SEC (10.9-12.4)
--- OUTSIDE RECORDS SUMMARY | 2024-07-21 09:46 | XMS_ITS ---
Author Organization [facility] Address [address] [place] [address] Care Team Providers Care Shingle Weaver Name Role Phone Bonny Bueno MD Primary Care Provider Laura Quintana [phone] REASON FOR VISIT cx appt Encounters Encounter Location Date Provider Diagnosis [address] [address] 05/01/2024 Laura Wheeler Plan Of Treatment No Information Progress Notes * Cristina DOMINIQUEOB: (69 yo F)Acc No.[id number]:05/01/2024 Patient:?Rowena DOMINIQUE :1955???Age:69 Y???Sex:Female Address:[address] [place] [address], [address] * true * Date:? Generated for Anai bhavna/Consuelo/eTransmitting on:?07/21/2024 09:46 AM EDT
--- OUTSIDE RECORDS SUMMARY | 2024-07-21 09:46 | XMS_ITS ---
Author Organization [facility] Address [address] [place] [address] Care Team Providers Care Certified Veterinary Technician Name Role Phone Myles SANDERSON, Bonny Primary Care Provider Laura Quintana Unavailable [phone] Encounters Encounter Location Date Provider Diagnosis [facility] [address] [place] [address] 05/09/2024 Laura Wheeler Plan Of Treatment No Information Progress Notes * DOMINIQUEChetan DENNISileDOB: (69 yo F)Acc No.[id number]:05/09/2024 Progress Notes Patient:?Rowena DOMINIQUE Provider:?Laura Wheeler DPM :1955???Age:69 Y???Sex:Female D ate:05/09/2024 Address:[address] [place], [place] [id number] Pcp:Bonny Bueno MD Subjective: * Chief Complaints: * ??? * Medical History:? Objective: * Vitals:? Assessment: Plan: * Treatment: * Images: * The named appointment provid er may or may not be the originator of this progress note, and it is not deemed complete until electronically signed by the appointment provider. Sign off status: Pending * Provider:?Laura Wheeler DPM Date:?0 05/09/2024 Generated for Judah huggins/Consuelo/eTransmitting on:?07/21/2024 09:46 AM EDT
--- OUTSIDE RECORDS SUMMARY | 2024-07-21 09:46 | XMS_ITS ---
Author Organization [facility] Address [address] [place] [address] Care Team Providers Care Director Of Strategic Communications Name Role Phone Bonny Bueno MD Primary Care Provider Laura Quintana Unavailable [phone] Allergies Allergen (clinical drug ingredient) Drug/Non Drug [...] Notes Problem Plantar fasciitis of left foot (6463065817315 9101) Plantar fasciitis of left foot (M72.2) Active confirmed Vital Signs Height 5ft 8inch in 04/04/2024 Weight 202 lbs 04/04/2024 BMI 30.71 kg/m2 04/04/2024 Blood pressure systolic 120 mm Hg 04/04/19 25 Blood pressure diastolic 80 mm Hg 025 Encounters Encounter Location Date Provider Diagnosis [facility] [address] [place] [address] 04/04/2024 Laura Wheeler Pain in left foot [...] Detail Notes Injection Tendon Sheath or Fascia 74725, J 3402 Injection - Plantar Fascia w/ mixture of [...] Notes * Cristina DOMINIQUEOB: (68 yo F)Acc No.[id number]:04/04/2024 Progress Notes Patient:?Rowena DOMIINQUE Provider:?Laura Wheeler DPM :1955???Age:68 Y???Sex:Female D ate:04/04/2024 Address:[address] [place] [address], [place] Pcp:Bonny Bueno MD Subjective: * Chief Complaints: [...] Foot, LAT, LO, MO, LEFT??Taken by trained?Podiatric Cake Icer (?EF).?Findings:? normal bone and soft tissue density [...] with: INJECTIONTHERAPY.pdf (INJECTIONTHERAPY.pdf)?? * Procedures:?Injection:?Tendon Sheath or Fascia?05267, J0702 Injection - Plantar Fascia w/ mixture [...] ( 0-1) out of 10.? * Procedure Codes:?87907 X-RAY EXAM OF LEFT FOOT 3V, Modifiers: [...] Interfil injection therapy, as well as surgical Thayer/Endoscopic Fasciitomy surgical procedures if needed. Recommendations were [...] DPM Date:?0 04/04/2024 Generated for Judah huggins/Consuelo/Rodrigue on:?07/21/2024 09:46 AM EDT History and Physical Notes * HPI (History [...] Decreased Ankle joint dorsiflexion ROM, knee extended FOOTWEAR EVALUATION: shoe gear propertie s exacerbate patients foot/toe deformity MPJ PATHOLOGY: X-Rays [...] LO, MO, LEFT Taken by trained Podiatric Cake Icer ( EF) Clinical Indication(s): Evaluate for Fra [...]
--- OUTSIDE RECORDS SUMMARY | 2024-07-21 09:46 | XMS_ITS | Clinical Summary ---
Author Organization [facility] Address [address] [place] [address] Care Team Providers Care Housing Officer Name Role Phone Tashia Rice MD Primary Care Provider [phone] Surgical History Surgery Date Site/Laterality Comments OTHER SURGICAL HISTORY PROCEDURE: ARTHROSCOPY PROCEDURE NEC; COMMENT: knee ENDOMETRIAL ABLATION 05/03/2006 PROCEDURE: ME ENDOMETRIAL ABLTJ THERMAL W/O HYSTEROSCOPIC GUID; COMMENT: Novasure COLONOSCOPY 2001 PROCEDURE: ME COLONOSCOPY FLX DX W/COLLJ SPEC WHEN PFRMD; COMMENT: diverticulosis COLONOSCOPY 01/07/08 PROCEDURE: ME COLONOSCOPY STOMA DX INCLUDING COLLJ SPEC SPX; COMMENT: Up to cecum, mild sigmoid diverticulosis, tortuous sigmoid colon, otherwise normal colon exam OTHER SURGICAL HISTORY 02/2011 PROCEDURE: ME COLECTOMY PARTIAL W/ANASTOMOSIS; COMMENT: diverticulitis TOTAL KNEE ARTHROPLASTY 2017 Bilateral PROCEDURE: ME ARTHRP KNE CONDYLE&PLATU MEDIAL&LAT COMPARTMENTS COLONOSCOPY 08/29/2018 [...] DX:Chest pain PAF (paroxysmal atrial fibri llation) (CMS/HCC V24, CMS/HCC V28) 02/15/2008 DX:PAF (paroxysmal atrial fibrillation) (HCC) Subserous leiomyoma of uterus 03/07/2006 DX :Subserous leiomyoma of uterus Sciatica of right side 11/05/2013 DX:Sciati ca of right side Pure hypercholesterolemia 03/18/2005 DX:Pur e hypercholesterolemia Major depressive disorder, r ecurrent episode, mild (CMS/HCC V24) 01/02/2015 DX:Major depressive disord er, recurrent episode, mild (HCC) Diverticulitis of colon with out hemorrhage 03/18/2005 DX:Diverticulitis of colon w ithout hemorrhage Depressive disorder 03/18/2005 DX:Depressiv e disorder; COMMENT: Admitted to [facility] status post suicide attempt/Vicodin overdose 01/20/14 Allergic rhinitis 03/18/2005 DX:Allergic rh initis Essential tremor 12/13/2018 DX:Essential tr emor Family History Medical History Relation Name Comments Bipolar disorder Daughter Other: CAD Father PTCA, stents, a t age 72, from [place] at age 74 No Known Problems Maternal Grandfather No Known Problems Maternal Grandmother Other: TIA Mother No Known Problems Other No Known Problems Paternal Grandfather No Known Problems Paternal Grandmother No Known Problems Sister Breast cancer Neg Hx Colon cancer Neg Hx Ovarian cancer Neg Hx Relation Name Status Comments Daughter Father [place] 74yo, lipids ,prostate cancer Maternal Grandfather Maternal [...] Due Date Last Done Comments RSV Immunization Adult Patients (1 - Risk 60-74 years 1-dose series) 2016 Cholesterol Screening (Lipid Panel) 03/05/2022 Colorectal Cancer Screening: Colonoscopy 03/05/2022 Depression Screening 03/05/2022 Falls Risk Assessment 03/05/2022 Hepatitis C Screening 03/05/2022 Osteoporosis Screening (Bone Density Screening) 03/05/2022 Social Influencers of Health Screening 03/05/2022 Breast Cancer Screening 03/31/2022 03/31/19, 04/03/2019, 03/28/2019, Additional history exists COVID-19 Vaccine ( season) 2023 02/16/2021, 07/10/2020, 06/18/2020 Influenza Vaccine (Season Ended) 2024 12/09/2020, 01/09/2020, 12/25/2018, Additional history exists Pneumococcal Vaccine: [...] age to complete this topic Meningococcal B Vaccine Aged Out No l onger eligible based on patient's age to complete [...] % Breast cancer risk category Low (<15%) Belén Sibley MD IMG XR PROCEDURES Final Resu lt from Last 3 Months or Most Recently Relevant to Health Maintenance Advance Directives Documents on File Type Date Recorded 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
--- OUTSIDE RECORDS SUMMARY | 2024-07-21 09:46 | XMS_ITS | Patient Health Record ---
[facility] Address [address] [place] [address] Care Team Providers Care Blacksmith Supervisor Name Role Phone Bonny Bueno MD Primary Care Provider Laura Quintana Unavailable [phone] Allergies Allergen (clinical drug ingredient) Drug/Non Drug [...] Referring Provider Last Name Myles Referred Organization [facility] Referred Provider Laura Wheeler Referred Address [address] [facility],[place],[address], Referred Provider Specialty Podiatry Referral Priority Routine [...] Notes Problem Plantar fasciitis of left foot ([id number] 9101) Plantar fasciitis of left foot (M72.2) Active confirmed Vital Signs Blood pressure diastolic 80 mm Hg 04/04/2024 Height 5ft 8inch in 04/04/2024 Blood pressure systolic 120 mm Hg 04/04/2024 Weight 202 lbs 04/04/2024 BMI 30.71 kg/m2 04/04/2024 Encounters Encounter Location Date Provider Diagnosis [facility] [address] 04/04/2024 Laura Wheeler Pain in left foot M79.672 ; Plantar fasciitis of left foot M72.2 ; Calcaneal spur, left foot M77.32 and Bursitis of left foot M77.[address] [address] 02/21/2024 Laura Wheeler [address] [address] 05/01/2024 Laura Wheeler Assessments Encounter Date Diagnosis [...] Insured Coverage Start Date Coverage End Date [facility] [address] [place] [address] [id number] Rowena Page Self - patient is the insured Medical (General) History Medical History History ICD Code Anxiety asthma CAD (Cholesterol) Cataracts covid-19 Depression Diverticulosis Glaucoma Heart disease High Blood Pressure Chicken pox Joint implants/screws Surgical History Surgery Date(Month/Year) cardiac ablation bilateral knee replacement bowel resection
[2024-07-21 09:54] LABS: B Type Natriuretic Peptide 116 pg/mL (<100)
[2024-07-21 10:06] LABS: Influenza A PCR NEGATIVE (Negative); Influenza B PCR NEGATIVE (Negative); Resp Syncy Virus RNA Qual PCR NEGATIVE (Negative); SARS COV2 PCR INHOUSE NEGATIVE (Negative)
[2024-07-21 10:20] VITALS: BP 134/71; PULSE 92; RESP 13; TEMP 36.7; O2SAT 95
[2024-07-21 10:32] LABS: Alanine Aminotransferase 39 U/L (0-31); Albumin Level 4.1 g/dL (3.5-5.0); Alkaline Phosphatase 79 U/L (39-117); Anion Gap 13 (12-20); Aspartate Amino Transferase 36 U/L (5-31); Bilirubin Direct 0.1 mg/dL (0.0-0.5); Bilirubin Total 0.5 mg/dL (0.0-1.0); Blood Urea Nitrogen 16 mg/dL (9-16); Calcium 9.5 mg/dL (8.4-10.2); Carbon Dioxide 30 mmol/L (22-29); Chloride 104 mmol/L (96-108); Creatinine Clr Calc Pharmacy 75.9; Estimated Glomerular Filt Rate > 60; Glucose Random 97 mg/dL (60-115); Lipase 10 U/L (8-78); Potassium 4.5 mmol/L (3.3-5.1); Sodium 142 mmol/L (135-145); Total Protein 7.3 g/dL (6.5-8.0)
[2024-07-21 10:38] LABS: Troponin-I High Sensitivity < 2.7 ng/L (<3.5-17.0)
[2024-07-21 11:07] LABS: D Dimer High Sensitivity < 150 NG/ML
--- NOTE | 2024-07-21 12:16 | PC.NURSE ---
Pt resting quietly in room; vss; SR per tele; pt denies pain at this time
[2024-07-21 13:28] LABS: Troponin-I High Sensitivity < 2.7 ng/L (<3.5-17.0)
[2024-07-21 14:05] VITALS: BP 110/76; PULSE 88; RESP 13; TEMP 36.7; O2SAT 95
== END 2024-07-21 14:06 | disposition home or self-care (01) ==
PROVIDERS: Emergency Provider Emergency Medicine; PCP Internal Medicine
DX: R00.2 Palpitations (principal); R07.9 Chest pain, unspecified; I48.91 Unspecified atrial fibrillation; I10 Essential (primary) hypertension; E78.5 Hyperlipidemia, unspecified; M54.2 Cervicalgia; Z79.01 Long term (current) use of anticoagulants; Z79.899 Other long term (current) drug therapy; Z03.818 Encounter for observation for suspected exposure to other biological agents ruled out
CPT/HCPCS: 0241U; 36415; 71045; 80048; 80076; 83690; 83880; 84484; 85025; 85379; 85610; 93005; 99283; 99285

== ENCOUNTER → 2024-07-21 09:06 | Outpatient (BNV) | payer MEDICARE, SELFPAY | PROVIDERS: Emergency Provider Emergency Medicine; PCP Internal Medicine; Visit Provider Radiology Diagnostic Radiology | DX: R07.9 Chest pain, unspecified (principal) | CPT/HCPCS: 71045 ==

== ENCOUNTER → 2024-07-21 09:06 | Outpatient (BNV) | payer MEDICARE, SELFPAY | PROVIDERS: Emergency Provider Emergency Medicine; PCP Internal Medicine; Visit Provider Internal Medicine | DX: R94.31 Abnormal electrocardiogram [ECG] [EKG] (principal); R07.9 Chest pain, unspecified | CPT/HCPCS: 93010 ==

== ENCOUNTER 2024-07-31 07:51 | Outpatient (AMB) | payer MEDICARE, SELFPAY ==
--- OUTSIDE RECORDS SUMMARY | 2024-07-31 07:54 | XMS_ITS | Encounter Summary ---
Author Organization [facility] Address [address] [place] [address] Care Team Providers Care Air Control Electronics Operator Name Role Phone Johana Shelby MD Primary Care Provider [phone] Devan Lepe MD Primary Care Provider Unav ailBelén Stallworth MD Primary Care Provider Unava ilTrip Calvert DO Primary Care Provider Janell Ash Pastrana MD Primary Care Provider Unavailab Marina Sparks MD Primary Care Provider [phone] Tashia Rice MD [facility] Primary Care Provider Unavailabl e Encounter Details Date Type Department Care Team Description 06/14/2005 [facility] Medical Records [address] [place] [id number] Abstract, Provider Social History Tobacco Use Types Packs/Day Years Used Date Smoking Tobacco: Never Smokeless Tobacco: Never Alcohol Use Standard Drinks/Week Comments Yes 0 (1 standard drink = 0.6 oz pur e alcohol) occ Sex Assigned at Date Recorded Not on file Job Start Date Occupation Industry Not on file Not on file Not on file documented as of this encounter Plan of Treatment Not on file documented as of this encounter Visit Diagnoses Not on filedocumented in this encounter Care Teams Air Control Electronics Operator Relationship Specialty Start Date End Date Johana Shelby MD [address] [place] [address] [id number] PCP - General 10/20/05 05/02/11 Devan Lepe MD PCP - General 06/09/1998 10/19/05 Belén Sibley MD PCP - General Internal Medicine 05/03/11 08/11/20 Trip Tyler DO PCP - General Internal Medicine 08/12/20 1 Ash Mcdowell MD PCP - General Internal Medicine 09/17/20 03/07/21 Marina Mclaughlin MD PCP - General Internal Medicine 03/08/21 06/09/21 Tashia Rice MD PCP - General Internal Medicine 06/10/21 02/09/22 [facility], Pcp PCP - General Internal Medicine 02/10/22 documented as of this encounter
--- OUTSIDE RECORDS SUMMARY | 2024-07-31 07:54 | XMS_ITS | Clinical Summary ---
Author Organization [facility] Address [address] [place] [address] Care Team Providers Care Solar Hot Water Installer Name Role Phone Community, Pcp Primary Care Provider Unavailabl e Allergies Active Allergy Reactions Severity Noted Date Comments Oxycodone-Aspirin Nausea and Vomiting 5 Medications Medication Sig Dispensed Refills Start Date End Date Status MULTIVITAMIN OR 1 QD 0 Active aspirin 81 MG EC tablet Take 81 mg by mouth daily. 0 Active latanoprost (XALATAN) 0.005 % ophthalmic solutionIndications :Mild persistent asthma without complication,Allerg ic rhinitis, unspecified seasonality, unspecified trigger,Post-nasal drainage,Snoring Place 1 Drop into both eyes at bedtime. 0 Active hydrOXYzine (VISTARIL) 25 MG capsule 1 tab tid prn 0 12/05/2018 Active trazodone (DESYREL) 100 MG tablet 1 -2 po qhs prn insomnia 60 Tab 0 01/02/2019 Active lamotrigine (LAMICTAL) 100 MG tablet Take 2.5 Tabs by mouth daily. 75 Tab 0 01/02/2019 Active ALBUTEROL SULFATE 108 (90 Base) MCG/ACT Aero SolnIndications:Mil d persistent asthma without complication,Allerg ic rhinitis, unspecified seasonality, unspecified trigger Take 2 Puffs by mouth every 6 hours as needed for Cough or Wheezing. 1 Inhaler 0 11/25/2019 Active amoxicillin (AMOXIL) 500 MG capsule Take 4 capsules by mouth one hour prior to dental procedure 4 capsule 0 12/11/2020 Active estradiol (ESTRACE VAGINAL) 0.1 MG/GM vaginal cream Apply 1g PV nightly for 2 weeks and then 1-2 nights a week thereafter 42.5 g 3 01/19/2021 Active docusate sodium (COLACE) 100 MG capsule TAKE 1 CAPSULE BY MOUTH EVERY DAY 90 capsule 1 01/28/2021 Active atorvastatin (LIPITOR) 80 MG tablet TAKE 1 TABLET BY MOUTH EVERY DAY INCREASE IN DOSE 0 03/10/2021 Active fluoxetine (PROZAC) 20 MG capsule TAKE 1 CAPSULE BY MOUTH EVERY DAY IN THE MORNING 0 06/01/2021 Active warfarin (COUMADIN) 2.5 MG tablet Take 1 Tablet by mouth See Admin Instructions. May cause heavy bleeding. Take at same time every day. Do not change dietary habits. 0 Active Alirocumab 75 MG/ML Solution Auto-injector Inject into the skin. 0 Active metoprolol (LOPRESSOR) 25 MG tablet Take 1 Tablet by mouth 2 times daily. 0 Active Active Problems Problem Noted Date Pelvic pain 08/19/2022 Last Assessment & Plan: I explained that, aside from the bulge, I see no other cause of her pain per se. She should follow up with Urology as scheduled and have a pelvic US to further evaluate for Hand Flatwork Finisher pathology. Midline cystocele 08/19/2022 Last Assessment & Plan: Once her evaluation is complete, we will plan to refer her to Urogyn for management of her prolapse. She declines pessary placement. Essential tremor 12/13/2018 DJD (degenerative joint disease) of knee 06/09/2016 Overview: [facility] note 05/2016 Leg edema, left 11/26/2015 Major depressive disorder, recurrent epi sode, mild 01/02/2015 Sciatica of right side 11/05/2013 PAF (paroxysmal atrial fibrillation) Overview: Converted with beta francisco and flecainide. Another episode of A. fib with RVR on 01/22/14 while in [facility], converted after being given Cardizem. Another episode in [place] [facility] - d/c on Toprol XL BID, followup with DR. Manley Diverticulitis 10/27/2007 Chest pain 04/18/2007 Overview: Stress ECHO (-) 05/30, may be related to anxiety 2007 with CP, palpitation, PAfib- with a negative myocardial perfusion as well as minimal plaquing in the LAD on the CT scan of the coronary arteries. Knee pain 04/18/2007 Overview: s/p realignment surgery 1998 Subserous leiomyoma of uterus 03/07/2006 Pure hypercholesterolemia 03/18/2005 Asthma 03/18/2005 GLAUCOMA 03/18/2005 Overview: IMO update Allergic rhinitis, cause unspecified Resolved Problems Problem Noted Date Resolved Date Wrist fracture, left 11/27/2012 10/09/2020 Overview: S/p fall at work - 11/25/12. Scaphoid waist fracture Dehiscence of closure of skin 03/29/2011 Depression 03/18/2005 06/23/2015 Overview: Admitted to [facility] status post suicide attempt/Vicodin overdose 01/20/14 Immunizations Name Administration Dates Next Due COVID-19 (Pfizer) Pt Reported 02/16/2021, 021,06/18/2020 Influenza (> 6 Months) 01/09/2020,2015,12/09/2014,01/23,01/27/2012 Influenza Flu (PT Reported) 02/21/2017 Influenza Vaccine-preservati ve Free-quadrivalent 4 Years 12/25/2018,12/31/2017 Influenza vaccine high dose age 65 and over 12/09/2020 Pneumoccoccal(Adult) Polysac charide PPSV23 07/11/2006 Pneumococcal Conjugate PCV-13 06/14/2021 Shingrix (Recombinant zoster vaccine) 03/24/2020 ,01/09/2020 Tdap 07/31/2017,07/11/2006 Zostavax (Patient Reported) 02/21/2017 Family History Medical History Relation Name Comments Bipolar Disorder Daughter CAD Father PTCA, stents, a t age 72, from ID at age 74 No Known Problems Maternal Grandfather No Known Problems Maternal Grandmother TIA Mother No Known Problems Other No Known Problems Paternal Grandfather No Known Problems Paternal Grandmother No Known Problems Sister CA Breast Negative Hx CA Colon Negative Hx CA Ovarian Negative Hx Relation Name Status Comments Daughter Father ID 74yo, lipids ,prostate cancer Maternal Grandfather Maternal [...] file Not on file Not on file Last Filed Vital Signs Vital Sign Reading Time Taken Comments Blood Pressure 138/86 08/18/2022 12:58 PM EDT Pulse 67 08/18/2022 12:58 PM EDT Temperature 36.5 ??C (97.7 ??F) 12/09/2020 10:01 AM E DT Respiratory Rate 16 08/18/2022 12:58 PM EDT Oxygen Saturation 95% 06/14/2021 10:41 AM EDT Inhaled Oxygen Concentration - - Weight 91.4 kg (201 lb 6.4 oz) 08/18/2022 12:58 PM EDT Height 172.7 cm (5' 8 ) 08/18/2022 12:58 PM EDT Body Mass Index 30.62 08/18/2022 12:58 PM EDT Plan of Treatment Health Maintenance Due Date Last Done Comments MAMMOGRAM 03/31/2021 03/31/2020, 10/2019, 03/28/2019, Additional history exists BONE DENSITY SCREENING 2021 DEPRESSION SCREEN 06/14/2022 06/14/2021, 05/27/2020 PNEUMOCOCCAL VACCINE (3 - PPSV23 or PCV20) 06/14/2022 06/14/2021, 07/11/2006 Covid-19 Vaccine ( season) 2023 02/16/2021, 07/10/2020, 06/18/2020 BMI CHECK/ADVISE 03/27/2024 06/14/2021, , 05/27/2020, Additional history exists INFLUENZA (Season Ended) 2024 021, 05/20/2020 (External Completion of Vaccination per patient), 01/09/2020, Additional history exists CHOLESTEROL SCREENING 06/14/2026 06/14/2021 , 03/29/2018, 08/23/2016, Additional history exists DTAP/TDAP/TD (3 - Td or Tdap) 08/01/2027 07/31/2017, 07/11/2006 COLON CANCER SCREENING 08/29/2028 9, 01/07/2008, 01/10/2002 HEPATITIS C SCREENING Completed 11/22/2012 SHINGLES VACCINE Addressed 05/20/2020 (Ext ernal Completion), 03/24/2020, 01/09/2020 Overridden with the intention of not completing the topic Care Teams Solar Hot Water Installer Relationship Specialty Start Date End Date Community, Pcp PCP - General Internal Medicine 02/10/22
--- OUTSIDE RECORDS SUMMARY | 2024-07-31 07:54 | XMS_ITS | Encounter Summary ---
Author Organization [facility] Address [address] [place] [address] Care Team Providers Care Auto Appraiser Name Role Phone Johana Shelby MD Primary Care Provider [phone] Devan Lepe MD Primary Care Provider Unav ailable Belén Sibley MD Primary Care Provider Unava ilTrip Calvert DO Primary Care Provider Janell vailaAsh Lopez MD Primary Care Provider Unavailab Marina Sparks MD Primary Care Provider [phone] Tashia Rice MD Primary Care Provider Unavai [facility] Pcp Primary Care Provider Unavailabl e Encounter Details Date Type Department Care Team Description 04/01/2004 [facility] [address] [address] Devan Lepe MD Social History Tobacco Use Types Packs/Day Years Used Date Smoking Tobacco: Never Assessed Sex Assigned at Date Recorded Not on file Job Start Date Occupation Industry Not on file Not on file Not on file documented as of this encounter Plan of Treatment Not on file documented as of this encounter Visit Diagnoses Not on filedocumented in this encounter Care Teams Auto Appraiser Relationship Specialty Start Date End Date Johana Shelby MD [address] [place] [address] [id number] PCP - General 10/20/05 05/02/11 Devan Lepe MD PCP - General 06/09/1998 10/19/05 Belén Sibley MD PCP - General Internal Medicine 05/03/11 08/11/20 Trip Tyler DO PCP - General Internal Medicine 08/12/20 1 Ash Mcdowell MD PCP - General Internal Medicine 09/17/20 03/07/21 Marina Mclaughlin MD PCP - General Internal Medicine 03/08/21 06/09/21 Tashia Rice MD PCP - General Internal Medicine 06/10/21 02/09/22 [facility], Pcp PCP - General Internal Medicine 02/10/22 documented as of this encounter
--- OUTSIDE RECORDS SUMMARY | 2024-07-31 07:54 | XMS_ITS | Encounter Summary ---
Author Organization [facility] Address [address] [place] [address] Care Team Providers Care Physician Relations Representative Name Role Phone Ash Mcdowell MD Primary Care Provider UnavailMarina Edwards MD Primary Care Provider [phone] Tashia Rice MD Primary Care Provider [facility], Pcp Primary Care Provider Unavailabl e Reason for Visit * Reason Onset Date Comments Medication 12/10/2020 Encounter Details Date Type Department Care Team Description 12/10/2020 Pt. Non Urgent Medic al Question Adult Medicine [address] [address] Ash Mcdowell MD Social History Tobacco Use Types Packs/Day Years Used Date Smoking Tobacco: Never Smokeless Tobacco: Never Alcohol Use Standard Drinks/Week Comments Yes 0 (1 standard drink = 0.6 oz pur e alcohol) occ Sex Assigned at Date Recorded Not on file Job Start Date Occupation Industry Not on file Not on file Not on file COVID-19 Exposure Response Date Recorded In the last month, have you been in contact with someone who was confirmed or suspected to have Coronavirus / COVID-19? No / Unsure 12/09/2020 9:47 AM EDT documented as of this encounter Miscellaneous Notes * Telephone Encounter - Pricilla Harvey M.A. - 12/11/2020 7:18 AM EDTFrom: Rowena Velasquez To: Casandra Mcdowell Sent: 12/10/2020 5:32 PM EDT Subject: Refill I need a refill for amoxicillin [id number] 4tabs 1hour before dentist appointment Due to bilateral knee replacement documented in this encounter Plan of Treatment Not on file documented as of this encounter Visit Diagnoses Not on filedocumented in this encounter Care Teams Physician Relations Representative Relationship Specialty Start Date End Date Ash Mcdowell MD PCP - General Internal Medicine 09/17/20 03/07/21 Marina Mclaughlin MD PCP - General Internal Medicine 03/08/21 06/09/21 Tashia Rice MD PCP - General Internal Medicine 06/10/21 02/09/22 [facility], Pcp PCP - General Internal Medicine 02/10/22 documented as of this encounter
--- OUTSIDE RECORDS SUMMARY | 2024-07-31 07:54 | XMS_ITS | Encounter Summary ---
Author Organization [facility] Address [address] [place] [address] Care Team Providers Care It Infrastructure Engineer Name Role Phone Belén Sibley MD Primary Care Provider Trip Staton DO Primary Care Provider Ash Mcdonald MD Primary Care Provider Unavailab Marina Sparks MD Primary Care Provider [phone] Tashia Rice MD Primary Care Provider [facility], Pcp Primary Care Provider Unavaillifepoint health e Encounter Details Date Type Department Care Team Description 08/13/2018 [facility] [address] [place] [id number] Md Leticia Social History Tobacco Use Types Packs/Day Years Used Date Smoking Tobacco: Never Smokeless Tobacco: Never Alcohol Use Standard Drinks/Week Comments Yes 0 (1 standard drink = 0.6 oz pur e alcohol) 2 drinks per week Sex Assigned at Date Recorded Not on file Job Start Date Occupation Industry Not on file Not on file Not on file documented as of this encounter Plan of Treatment Not on file documented as of this encounter Visit Diagnoses Not on filedocumented in this encounter Care Teams It Infrastructure Engineer Relationship Specialty Start Date End Date Belén Sibley MD PCP - General Internal Medicine 05/03/11 08/11/20 Trip Tyler DO PCP - General Internal Medicine 08/12/20 1 Ash Mcdowell MD PCP - General Internal Medicine 09/17/20 03/07/21 Marina Mclaughlin MD PCP - General Internal Medicine 03/08/21 06/09/21 Tashia Rice MD PCP - General Internal Medicine 06/10/21 02/09/22 [facility], Pcp PCP - General Internal Medicine 02/10/22 documented as of this encounter
--- OUTSIDE RECORDS SUMMARY | 2024-07-31 07:54 | XMS_ITS | Encounter Summary ---
Author Organization [facility] Address [address] [place] [address] Care Team Providers Care Communications Electrician Supervisor Name Role Phone Belén Sibley MD Primary Care Provider Trip Staton DO Primary Care Provider Ash Mcdonald MD Primary Care Provider Unavailab Marina Sparks MD Primary Care Provider [phone] Tashia Rice MD [facility] Encounter Details Date Type Department Care Team Description 02/16/2014 Hospital Medical Records [address] [place] [address] Anne-Marie Trinidad DO Social History Tobacco Use Types Packs/Day Years [...] on filedocumented in this encounter Care Teams Communications Electrician Supervisor Relationship Specialty Start Date End Date Belén Sibley MD PCP - General Internal Medicine 05/03/11 08/11/20 Trip Tyler DO PCP - General Internal Medicine 08/12/20 1 Ash Mcdowell MD PCP - General Internal Medicine 09/17/20 03/07/21 Marina Mclaughlin MD PCP - General Internal Medicine 03/08/21 06/09/21 Tashia Rice MD PCP - General Internal Medicine 06/10/21 02/09/22 [facility], Pcp PCP - General Internal Medicine 02/10/22 documented as of this encounter
--- OUTSIDE RECORDS SUMMARY | 2024-07-31 07:54 | XMS_ITS | Encounter Summary ---
Author Organization [facility] Address [address] [place] [address] Care Team Providers Care Electric Mule Driver Name Role Phone Belén Sibley MD Primary Care Provider Trip Staton DO Primary Care Provider Ash Mcdonald MD Primary Care Provider Unavailab Marina Sparks MD Primary Care Provider [phone] Tashia Rice MD Primary Care Provider [facility], Pcp Primary Care Provider [facility] Encounter Details Date Type Department Care Team Description 10/19/2017 Beating Machine Operator Report Medical Records [address] [place] [id number] Vladimir Manley MD Social History Tobacco Use Types Packs/Day [...] on filedocumented in this encounter Care Teams Electric Mule Driver Relationship Specialty Start Date End Date Belén Sibley MD PCP - General Internal Medicine 05/03/11 08/11/20 Trip Tyler DO PCP - General Internal Medicine 08/12/20 1 Ash Mcdowell MD PCP - General Internal Medicine 09/17/20 03/07/21 Marina Mclaughlin MD PCP - General Internal Medicine 03/08/21 06/09/21 Tashia Rice MD PCP - General Internal Medicine 06/10/21 02/09/22 [facility], Pcp PCP - General Internal Medicine 02/10/22 documented as of this encounter
--- OUTSIDE RECORDS SUMMARY | 2024-07-31 07:54 | XMS_ITS | Encounter Summary ---
Author Organization [facility] Address [address] [place] [address] Care Team Providers Care Head Inspector Name Role Phone Ash Mcdowell MD Primary Care Provider Unavailab Marina Sparks MD Primary Care Provider [phone] Tashia Rice MD Primary Care Provider [facility], Pcp Primary Care Provider Unavailabl e Reason for Visit * Reason Comments E-prescribe Rx Request Encounter Details Date Type Department Care Team Description 01/27/2021 Refill Adult Medicine [address] [address] Belén Sibley MD E-prescribe Rx Request Social History Tobacco Use Types Packs/Day Years [...] have Coronavirus / COVID-19? No / Unsure 01/19/2021 12:47 PM EDT documented as of this encounter Miscellaneous Notes * Telephone Encounter - Pricilla Roses - 01/28/2021 1:47 PM EDT Lab Results Component Value Date NA 141 05/27/2020 K 4.4 05/27/2020 CO2 28 05/27/2020 CL 105 05/27/2020 BUN 16 05/27/2020 CREAT 0.96 05/27/2020 GLU 71 05/27/2020 CA 10.5 05/27/2020 GFR 59 05/27/2020 Last appt with pcp 12/09/20 * Telephone Encounter - Kiley Mora - 01/28/2021 1:40 PM EDT Patient would like script to be: E-PRESCRIBED/FAXED TO PHARMACY WHEN WAS THE PATIENT'S LAST APPOINTMENT IN ADULT MEDICINE? 12/09/2020 WHEN WAS THE LAST TIME THE PATIENT SAW THEIR PCP? Same as above Does patient have an upcoming appointment? No-unable to reach left [facility] to call for appointment due to refill request. Appt due with New pcp (THE MEDICATION REQUESTED IS ON THE MED LIST ABOVE) All of the medications requested were on the CURRENT MEDS list Did you check the Pharmacy information above?: YES Patient wants: 30 -day supply Is this a mail order prescription request ? NO If the refill is from a FAXED refill request what is the RX # listed on the fax? N/A Patients current insurance carrier is: Payor: [facility] / Plan: [employer] [employer] PREF HMO $10 [place] / Product Type: MEDICARE RISK documented in this encounter Plan of Treatment Not on file documented as of this encounter Visit Diagnoses Not on filedocumented in this encounter Care Teams Head Inspector Relationship Specialty Start Date End Date Ash Mcdowell MD PCP - General Internal Medicine 09/17/20 03/07/21 Marina Mclaughlin MD PCP - General Internal Medicine 03/08/21 06/09/21 Tashia Rice MD PCP - General Internal Medicine 06/10/21 02/09/22 [facility], Pcp PCP - General Internal Medicine 02/10/22 documented as of this encounter
--- OUTSIDE RECORDS SUMMARY | 2024-07-31 07:54 | XMS_ITS | Encounter Summary ---
Author Organization [facility] Address [address] [place] [address] Care Team Providers Care Film Vault Supervisor Name Role Phone Belén Sibley MD Primary Care Provider Trip Staton DO Primary Care Provider Ash Mcdonald MD Primary Care Provider Unavailab Marina Sparks MD Primary Care Provider +1- [phone] Tashia Rice MD Primary Care Provider [facility], Pcp Primary Care Provider [facility] Encounter Details Date Type Department Care Team Description 03/18/2014 Hospital Medical Records [address] [place] [address] Social History Tobacco Use Types Packs/Day Years [...] on filedocumented in this encounter Care Teams Film Vault Supervisor Relationship Specialty Start Date End Date Belén Sibley MD PCP - General Internal Medicine 05/03/11 08/11/20 Trip Tyler DO PCP - General Internal Medicine 08/12/20 1 Ash Mcdowell MD PCP - General Internal Medicine 09/17/20 03/07/21 Marina Mclaughlin MD PCP - General Internal Medicine 03/08/21 06/09/21 Tashia Rice MD PCP - General Internal Medicine 06/10/21 02/09/22 [facility], Pcp PCP - General Internal Medicine 02/10/22 documented as of this encounter
--- OUTSIDE RECORDS SUMMARY | 2024-07-31 07:54 | XMS_ITS | Encounter Summary ---
Author Organization [facility] Address [address] [place] [address] Care Team Providers Care Clerk Television Production Name Role Phone Belén Sibley MD Primary Care Provider Trip Staton DO Primary Care Provider Ash Mcdonald MD Primary Care Provider UnavailMarina Edwards MD Primary Care Provider +1- [phone] Tashia Rice MD Primary Care Provider [facility], Pcp Primary Care Provider Karen e Reason for Visit * Reason Onset Date Comments Transitional Care Management (Tcm) 09/08/2016 [facility] d/c 09[facility]07[facility]16 Encounter Details Date Type Department Care Team Description 09/08/2016 Telephone Adult [address] [address] Belén Sibley MD Transitional Care Management (Tcm) ([facility] d/c 09/07/16) Social History Tobacco Use Types Packs/Day Years Used Date Smoking Tobacco: Never Smokeless Tobacco: Never Alcohol Use Standard Drinks/Week Comments Yes 0 (1 standard drink = 0.6 oz pur e alcohol) 2 drinks per week Sex Assigned at Date Recorded Not on file Job Start Date Occupation Industry Not on file Not on file Not on file documented as of this encounter Miscellaneous Notes * Telephone Encounter - Mayra Oh RN - 09/08/2016 12:24 PM EDT TCM Patient was outreached for post hospital discharge by Mayra Oh R.N. Quality Block Chopper Hand.Unable to reach patient. Message left for patient to return call to quality department. Patient not required to follow up with PCP. She does have pre-op scheduled 09/19/16 for left knee replacement. If patient returns the call, please forward call to Quality department at extension [phone] and forward message to [place] # [phone]. Patient was discharged from: [facility] on 09/07/16. Discharge diagnosis: Osteoarthritis of the right knee documented in this encounter Plan of Treatment Not on file documented as of this encounter Visit Diagnoses Not on filedocumented in this encounter Care Teams Clerk Television Production Relationship Specialty Start Date End Date Belén Sibley MD PCP - General Internal Medicine 05/03/11 08/11/20 Trip Tyler DO PCP - General Internal Medicine 08/12/20 1 Ash Mcdowell MD PCP - General Internal Medicine 09/17/20 03/07/21 Marina Mclaughlin MD PCP - General Internal Medicine 03/08/21 06/09/21 Tashia Rice MD PCP - General Internal Medicine 06/10/21 02/09/22 [facility], Pcp PCP - General Internal Medicine 02/10/22 documented as of this encounter
--- OUTSIDE RECORDS SUMMARY | 2024-07-31 07:54 | XMS_ITS | Encounter Summary ---
Author Organization [facility] Address [address] [place] [address] Care Team Providers Care Durability Engineer Name Role Phone Belén Sibley MD Primary Care Provider Trip Staton DO Primary Care Provider Ash Mcdonald MD Primary Care Provider Unavailab Marina Sparks MD Primary Care Provider [phone]- [phone] Tashia Rice MD Primary Care Provider [facility], Pcp Primary Care Provider [facility] Encounter Details Date Type Department Care Team Description 01/23/2014 Hospital Medical Records [address] [place] [address] Yeimy Lyon MD Social History Tobacco Use Types Packs/Day [...] on filedocumented in this encounter Care Teams Durability Engineer Relationship Specialty Start Date End Date Belén Sibley MD PCP - General Internal Medicine 05/03/11 08/11/20 Trip Tyler DO PCP - General Internal Medicine 08/12/20 1 Ash Mcdowell MD PCP - General Internal Medicine 09/17/20 03/07/21 Marina Mclaughlin MD PCP - General Internal Medicine 03/08/21 06/09/21 Tashia Rice MD PCP - General Internal Medicine 06/10/21 02/09/22 [facility], Pcp PCP - General Internal Medicine 02/10/22 documented as of this encounter
--- OUTSIDE RECORDS SUMMARY | 2024-07-31 07:54 | XMS_ITS | Encounter Summary ---
Author Organization [facility] Address [address] [place] [address] Care Team Providers Care Manager Discovery Name Role Phone Belén Sibley MD Primary Care Provider Trip Staton DO Primary Care Provider Ash Mcdonald MD Primary Care Provider Unavailab Marina Sparks MD Primary Care Provider [phone]- [phone] Tashia Rice MD [facility] Primary Care Provider [facility] Encounter Details Date Type Department Care Team Description 02/15/2014 Hospital Medical Records [address] [place] [address] Anne-Marie Trinidad DO Social History Tobacco Use [...] on filedocumented in this encounter Care Teams Manager Discovery Relationship Specialty Start Date End Date Belén Sibley MD PCP - General Internal Medicine 05/03/11 08/11/20 Trip Tyler DO PCP - General Internal Medicine 08/12/20 1 Ash Mcdowell MD PCP - General Internal Medicine 09/17/20 03/07/21 Marina Mclaughlin MD PCP - General Internal Medicine 03/08/21 06/09/21 Tashia Rice MD PCP - General Internal Medicine 06/10/21 02/09/22 [facility]cp PCP - General Internal Medicine 02/10/22 documented as of this encounter
--- OUTSIDE RECORDS SUMMARY | 2024-07-31 07:54 | XMS_ITS | Encounter Summary ---
Author Organization [facility] Address [address] [place] [address] Care Team Providers Care Second Steward Name Role Phone Belén Sibley MD Primary Care Provider Trip Staton DO Primary Care Provider Ash Mcdonald MD Primary Care Provider Unavailab Marina Sparks MD Primary Care Provider [phone]- [phone] Tashia Rice MD Primary Care Provider [facility], Pcp Primary Care Provider [facility] Encounter Details Date Type Department Care Team Description 03/18/2018 Hospital Medical Records [address] [place] [address] Social History Tobacco Use Types Packs/Day Years [...] on filedocumented in this encounter Care Teams Second Steward Relationship Specialty Start Date End Date Belén Sibley MD PCP - General Internal Medicine 05/03/11 08/11/20 Trip Tyler DO PCP - General Internal Medicine 08/12/20 1 Ash Mcdowell MD PCP - General Internal Medicine 09/17/20 03/07/21 Marina Mclaughlin MD PCP - General Internal Medicine 03/08/21 06/09/21 Tashia Rice MD PCP - General Internal Medicine 06/10/21 02/09/22 [facility], Pcp PCP - General Internal Medicine 02/10/22 documented as of this encounter
--- OUTSIDE RECORDS SUMMARY | 2024-07-31 07:54 | XMS_ITS ---
Author Organization [facility] Address [address] [place] [address] Care Team Providers Care Compliance Review Officer Name Role Phone Myles SANDERSON, Bonny Primary Care Provider Laura Quintana Unavailable [phone] Encounters Encounter Location Date Provider Diagnosis [facility] [address] [place] [address] 05/09/2024 Laura Wheeler Plan Of Treatment No Information Progress Notes * DOMINIQUEChetan DENNISileDOB: 7 (69 yo F)Acc No.[id number]:05/09/2024 Progress Notes Patient:?Rowena DOMINIQUE Provider:?Laura Wheeler DPM :1955???Age:69 Y???Sex:Female D ate:05/09/2024 Address:[address] [place], [place] [id number] Pcp:Bonny Bueno MD Subjective: * Chief Complaints: [...] DPM Date:?0 05/09/2024 Generated for Judah huggins/Consuelo/eTransmitting on:?07/31/2024 07:54 AM EDT
--- OUTSIDE RECORDS SUMMARY | 2024-07-31 07:54 | XMS_ITS | Encounter Summary ---
Author Organization [facility] Address [address] [place] [address] Care Team Providers Care Top Carrier Name Role Phone Ash Mcdowell MD Primary Care Provider Unavailab Marina Sparks MD Primary Care Provider [phone]- [phone] Tashia Rice MD Primary Care Provider [facility], Pcp Primary Care Provider [facility] Encounter Details Date Type Department Care Team Description 02/01/2021 Hospital Medical Records [address] [place] [address] Luis F Rapp MD Social History Tobacco Use Types Packs/Day [...] PM EDT documented as of this encounter Plan of Treatment Not on file documented as of this encounter Visit Diagnoses Not on filedocumented in this encounter Care Teams Top Carrier Relationship Specialty Start Date End Date Ash Mcdowell MD PCP - General Internal Medicine 09/17/20 03/07/21 Marina Mclaughlin MD PCP - General Internal Medicine 03/08/21 06/09/21 Tashia Rice MD PCP - General Internal Medicine 06/10/21 02/09/22 [facility], Pcp PCP - General Internal Medicine 02/10/22 documented as of this encounter
--- OUTSIDE RECORDS SUMMARY | 2024-07-31 07:54 | XMS_ITS | Encounter Summary ---
Author Organization [facility] Address [address] [place] [address] Care Team Providers Care Outside Parts Salesman Name Role Phone Belén Sibley MD Primary Care Provider Trip Staton DO Primary Care Provider Ash Mcdonald MD Primary Care Provider Unavailab Marina Sparks MD Primary Care Provider [phone]- [phone] Tashia Rice MD Primary Care Provider [facility], Pcp Primary Care Provider [facility] Encounter Details Date Type Department Care Team Description 08/31/2016 Hospital Medical Records [address] [place] [address] Gayle Seo Social History Tobacco Use Types Packs/Day Years [...] on filedocumented in this encounter Care Teams Outside Parts Salesman Relationship Specialty Start Date End Date Belné Sibley MD PCP - General Internal Medicine 05/03/11 08/11/20 Trip Tyler DO PCP - General Internal Medicine 08/12/20 1 Ash Mcdowell MD PCP - General Internal Medicine 09/17/20 03/07/21 Marina Mclaughlin MD PCP - General Internal Medicine 03/08/21 06/09/21 Tashia Rice MD PCP - General Internal Medicine 06/10/21 02/09/22 [facility], Pcp PCP - General Internal Medicine 02/10/22 documented as of this encounter
--- OUTSIDE RECORDS SUMMARY | 2024-07-31 07:54 | XMS_ITS | Encounter Summary ---
Author Organization [facility] Address [address] [place] [address] Care Team Providers Care Industrial Roofer Helper Name Role Phone Belén Sibley MD Primary Care Provider Trip Staton DO Primary Care Provider Janell Ash Pastrana MD Primary Care Provider Unavailab Marina Sparks MD Primary Care Provider [phone]- [phone] Tashia Rice MD [facility] Primary Care Provider Unavailabl e Encounter Details Date Type Department Care Team Description 01/23/2014 Hospital Medical Records [address] [place] [address] Jeyson Hernandez MD [address] [place] [address] Social History Tobacco Use Types Packs/Day Years [...] on filedocumented in this encounter Care Teams Industrial Roofer Helper Relationship Specialty Start Date End Date Belén [...]
--- OUTSIDE RECORDS SUMMARY | 2024-07-31 07:54 | XMS_ITS | Encounter Summary ---
Author Organization [facility] Address [address] [place] [address] Care Team Providers Care Qc Lab Technician Name Role Phone Belén Sibley MD Primary Care Provider Trip Staton DO Primary Care Provider Ash Mcdonald MD Primary Care Provider Unavailab Marina Sparks MD Primary Care Provider +1- [phone] Tashia Rice MD Primary Care Provider [facility], Pcp Primary Care Provider [facility] Encounter Details Date Type Department Care Team Description 04/24/2014 Cattle Manager Report Medical Records [address] [place] [address] Abstract, Provider Social History Tobacco Use Types [...] on filedocumented in this encounter Care Teams Qc Lab Technician Relationship Specialty Start Date End Date Belén Sibley MD PCP - General Internal Medicine 05/03/11 08/11/20 Trip Tyler DO PCP - General Internal Medicine 08/12/20 1 Ash Mcdowell MD PCP - General Internal Medicine 09/17/20 03/07/21 Marina Mclaughlin MD PCP - General Internal Medicine 03/08/21 06/09/21 Tashia Rice MD PCP - General Internal Medicine 06/10/21 02/09/22 [facility], Pcp PCP - General Internal Medicine 02/10/22 documented as of this encounter
--- OUTSIDE RECORDS SUMMARY | 2024-07-31 07:54 | XMS_ITS | Patient Health Record ---
Author Organization [facility] Address [address] [place] [address] Care Team Providers Care Youtuber Name Role Phone Bonny Bueno MD Primary Care Provider Laura Quintana Unavailable [phone] Allergies Allergen (clinical drug ingredient) Drug/Non Drug [...] Referring Provider Last Name Myles Referred Organization [facility] Referred Provider Laura Wheeler Referred Address [address] [facility],[place], [place],[address], Referred Provider Specialty Podiatry Referral Priority Routine [...] Notes Problem Plantar fasciitis of left foot ([id number] 9101) Plantar fasciitis of left foot (M72.2) Active confirmed Vital Signs Blood pressure diastolic 80 mm Hg 04/04/2024 Height 5ft 8inch in 04/04/2024 Blood pressure systolic 120 mm Hg 04/04/2024 Weight 202 lbs 04/04/2024 BMI 30.71 kg/m2 04/04/2024 Encounters Encounter Location Date Provider Diagnosis [facility] [address] 04/04/2024 Laura Wheeler Pain in left foot M79.672 ; Plantar fasciitis of left foot M72.2 ; Calcaneal spur, left foot M77.32 and Bursitis of left foot M77.[address] [address] 02/21/2024 Laura Wheeler [address] [address] 05/01/2024 Laura Wheeler Assessments Encounter Date Diagnosis [...] Insured Coverage Start Date Coverage End Date [facility] [address] [place] [address] [phone] [id number] Rowena Page Self - patient is the insured Medical (General) History Medical History History ICD Code Anxiety asthma CAD (Cholesterol) Cataracts covid-19 Depression Diverticulosis Glaucoma Heart disease High Blood Pressure Chicken pox Joint implants/screws Surgical History Surgery Date(Month/Year) cardiac ablation bilateral knee replacement bowel resection
--- OUTSIDE RECORDS SUMMARY | 2024-07-31 07:54 | XMS_ITS | Encounter Summary ---
Author Organization [facility] Address [address] [place] [address] Care Team Providers Care Maintenance Supervisor 2Nd Shift Name Role Phone Belén Sibley MD Primary Care Provider Trip Staton DO Primary Care Provider Ash Mcdonald MD Primary Care Provider Unavailab Marina Sparks MD Primary Care Provider [phone]- [phone] Tashia Rice MD Primary Care Provider [facility], Pcp Primary Care Provider [facility] Encounter Details Date Type Department Care Team Description 12/01/2018 Old Medical Records Medical Records [address] [place] [address] Abstract, Provider Social History Tobacco Use Types [...] on filedocumented in this encounter Care Teams Maintenance Supervisor 2Nd Shift Relationship Specialty Start Date End Date Belén Sibley MD PCP - General Internal Medicine 05/03/11 08/11/20 Trip Tyler DO PCP - General Internal Medicine 08/12/20 1 Ash Mcdowell MD PCP - General Internal Medicine 09/17/20 03/07/21 Marina Mclaughlin MD PCP - General Internal Medicine 03/08/21 06/09/21 Tashia Rice MD PCP - General Internal Medicine 06/10/21 02/09/22 [facility], Pcp PCP - General Internal Medicine 02/10/22 documented as of this encounter
--- OUTSIDE RECORDS SUMMARY | 2024-07-31 07:54 | XMS_ITS | Encounter Summary ---
Author Organization [facility] Address [address] [place] [address] Care Team Providers Care Client Technical Support Associate Name Role Phone Belén Sibley MD Primary Care Provider Trip Staton DO Primary Care Provider Ash Mcdonald MD Primary Care Provider Unavailab Marina Sparks MD Primary Care Provider +1- [phone] Tashia Rice MD Primary Care Provider [facility], Pcp Primary Care Provider [facility] Encounter Details Date Type Department Care Team Description 12/25/2018 [facility] [address] [place] [address] Md Leticia Social History Tobacco Use Types [...] on filedocumented in this encounter Care Teams Client Technical Support Associate Relationship Specialty Start Date End Date Belén Sibley MD PCP - General Internal Medicine 05/03/11 08/11/20 Trip Tyler DO PCP - General Internal Medicine 08/12/20 1 Ash Mcdowell MD PCP - General Internal Medicine 09/17/20 03/07/21 Marina Mclaughlin MD PCP - General Internal Medicine 03/08/21 06/09/21 Tashia Rice MD PCP - General Internal Medicine 06/10/21 02/09/22 [facility], Pcp PCP - General Internal Medicine 02/10/22 documented as of this encounter
--- OUTSIDE RECORDS SUMMARY | 2024-07-31 07:54 | XMS_ITS | Encounter Summary ---
Author Organization [facility] Address [address] [place] [address] Care Team Providers Care Hat Steamer Name Role Phone Belén Sibley MD Primary Care Provider Trip Staton DO Primary Care Provider Ash Mcdonald MD Primary Care Provider Unavailab Marina Sparks MD Primary Care Provider +1- [phone] Tashia Rice MD Primary Care Provider [facility], Pcp Primary Care Provider Unavailabl e Reason for Visit * Reason Onset Date Comments other 07/26/2012 Encounter Details Date Type Department Care Team Description 07/26/2012 Telephone Adult Medicine [address] [address] Belén Sibley MD other Social History Tobacco Use Types Packs/Day Years [...] encounter Miscellaneous Notes * Telephone Encounter - Layla Cabrera - 07/26/2012 9:26 AM EDT Message left for patient to call back... Needs to choose a pcp per [facility] - o. Patient needs to callHNE. documented in this encounter Plan of Treatment Not on file documented as of this encounter Visit Diagnoses Not on filedocumented in this encounter Care Teams Hat Steamer Relationship Specialty Start Date End Date Belén Sibley MD PCP - General Internal Medicine 05/03/11 08/11/20 Trip Tyler DO PCP - General Internal Medicine 08/12/20 1 Ash Mcdowell MD PCP - General Internal Medicine 09/17/20 03/07/21 Marina Mclaughlin MD PCP - General Internal Medicine 03/08/21 06/09/21 Tashia Rice MD PCP - General Internal Medicine 06/10/21 02/09/22 James, Andi PCP - General Internal Medicine 02/10/22 documented as of this encounter
--- OUTSIDE RECORDS SUMMARY | 2024-07-31 07:54 | XMS_ITS | Encounter Summary ---
Author Organization [facility] Address [address] [place] [address] Care Team Providers Care Flat Finisher Name Role Phone Belén Sibley MD Primary Care Provider Trip Staton DO Primary Care Provider Ash Mcdonald MD Primary Care Provider Unavailab Marina Sparks MD Primary Care Provider +1- [phone] Tashia Rice MD Primary Care Provider [facility], Pcp Primary Care Provider [facility] Encounter Details Date Type Department Care Team Description 12/31/2012 City Engineer Report Medical Records [address] [place] [address] Devon Traore MD Social History Tobacco Use Types Packs/Day [...] on filedocumented in this encounter Care Teams Flat Finisher Relationship Specialty Start Date End Date Belén Sibley MD PCP - General Internal Medicine 05/03/11 08/11/20 Trip Tyler DO PCP - General Internal Medicine 08/12/20 1 Ash Mcdowell MD PCP - General Internal Medicine 09/17/20 03/07/21 Marina Mclaughlin MD PCP - General Internal Medicine 03/08/21 06/09/21 Tashia Rice MD PCP - General Internal Medicine 06/10/21 02/09/22 [facility], Pcp PCP - General Internal Medicine 02/10/22 documented as of this encounter
--- OUTSIDE RECORDS SUMMARY | 2024-07-31 07:54 | XMS_ITS | Encounter Summary ---
Author Organization [facility] Address [address] [place] [address] Care Team Providers Care Cottage Master Name Role Phone Belén Sibley MD Primary Care Provider Trip Staton DO Primary Care Provider Janell Ash Pastrana MD Primary Care Provider Unavailab Marina Sparks MD Primary Care Provider +1- [phone] Tashia Rice MD [facility] Primary Care Provider Unavailabl e Reason for Visit * Reason Comments E-prescribe Rx Request Encounter Details Date Type Department Care Team Description 06/26/[address] [address] Belén Sibley MD E-prescribe Rx Request Social [...] encounter Miscellaneous Notes * Telephone Encounter - Eddie Quintero M.A. - 06/26/2019 2:00 PM EDT Faxed to pharmacy * Telephone Encounter - Sowmya Ochoa M.A. - 06/26/2019 11:21 AM EDT Lab Results Component Value Date NA 140 10/08/2018 K 4.6 10/08/2018 CO2 31 10/08/2018 CL 104 10/08/2018 BUN 19 10/08/2018 CREAT 0.90 10/08/2018 GLU 84 10/08/2018 CA 9.6 10/08/2018 GFR > 60 10/08/2018 * Telephone Encounter - Maddy Adams - 06/26/2019 8:05 AM EDT Patient would like script to be: E-PRESCRIBED/FAXED TO PHARMACY WHEN WAS THE PATIENT'S LAST APPOINTMENT IN ADULT MEDICINE? 12/13/18 WHEN WAS THE LAST TIME THE PATIENT SAW THEIR PCP? Same as above Does patient have an upcoming appointment? No will call to book (THE MEDICATION REQUESTED IS ON THE MED LIST ABOVE) All of the medications requested were on the CURRENT MEDS list Did you check the Pharmacy information above?: YES Patient wants: 90 -day supply Is this a mail order prescription request ? NO If the refill is from a FAXED refill request what is the RX # listed on the fax? N/A Patients current insurance carrier is: Payor: [facility] / Plan: [employer] [employer] PREF HMO $10 [place] / Product Type: MEDICARE RISK documented in this encounter Plan of Treatment Not on file documented as of this encounter Visit Diagnoses Not on filedocumented in this encounter Care Teams Cottage Master Relationship Specialty Start Date End Date Belén [...]
--- OUTSIDE RECORDS SUMMARY | 2024-07-31 07:54 | XMS_ITS | Encounter Summary ---
Author Organization [facility] Address [address] [place] [address] Care Team Providers Care Community Education Coordinator Name Role Phone Johana Shelby MD Primary Care Provider [phone] Belén Sibley MD Primary Care Provider Unava Trip Arce DO Primary Care Provider Janell Ash Pastrana MD Primary Care Provider Unavailab Marina Sparks MD Primary Care Provider [phone] Tashia Rice MD Primary Care Provider [facility]ell[facility], Pcp Primary Care Provider Unavailabl e Encounter Details Date Type Department Care Team Description 03/03/2011 Hospital Medical Records [address] [place] [address] Shawn Tobar MD [address] [place] [address] [id number] Social History Tobacco Use Types Packs/Day Years [...] on filedocumented in this encounter Care Teams Community Education Coordinator Relationship Specialty Start Date End Date Johana Shelby MD [address] [place] [address] [id number] PCP - General 10/20/05 05/02/11 Belén Sibley MD [address] [place], [place] [id number] PCP - General Internal Medicine 05/03/11 08/11/20 Trip Tyler DO [address] [place] [address] PCP - General Internal Medicine 08/12/20 09/16/20 Ash Mcdowell MD [address] [place], [place] [id number] PCP - General Internal Medicine 09/17/20 03/07/21 Marina Mclaughlin MD [address] [place] [address] PCP - General Internal Medicine 03/08/21 06/09/21 Tashia Rice MD [address] [place] [address] PCP - General Internal Medicine 06/10/21 02/09/22 [facility], Pcp [address] [place], [place] [id number] PCP - General Internal Medicine 02/10/22 documented as of this encounter
--- OUTSIDE RECORDS SUMMARY | 2024-07-31 07:54 | XMS_ITS | Encounter Summary ---
Author Organization [facility] Address [address] [place] [address] Care Team Providers Care Sub Master Name Role Phone Belén Sibley MD Primary Care Provider Trip Staton DO Primary Care Provider Ash Mcdonald MD Primary Care Provider Unavailab Marina Sparks MD Primary Care Provider [phone] Tashia Rice MD Primary Care Provider [facility], Pcp [facility] Encounter Details Date Type Department Care Team Description 10/04/2018 Radio Sportscaster Report Medical Records [address] [place] [address] Vladimir Manley MD Social History Tobacco Use [...] on filedocumented in this encounter Care Teams Sub Master Relationship Specialty Start Date End Date Belén Sibley MD PCP - General Internal Medicine 05/03/11 08/11/20 Trip Tyler DO PCP - General Internal Medicine 08/12/20 1 Ash Mcdowell MD PCP - General Internal Medicine 09/17/20 03/07/21 Marina Mclaughlin MD PCP - General Internal Medicine 03/08/21 06/09/21 Tashia Rice MD PCP - General Internal Medicine 06/10/21 02/09/22 [facility], Pcp PCP - General Internal Medicine 02/10/22 documented as of this encounter
--- OUTSIDE RECORDS SUMMARY | 2024-07-31 07:54 | XMS_ITS | Encounter Summary ---
Author Organization [facility] Address [address] [place] [address] Care Team Providers Care Tank Tender Name Role Phone Belén Sibley MD Primary Care Provider Trip Staton DO Primary Care Provider Ash Mcdonald MD Primary Care Provider Unavailab Marina Sparks MD Primary Care Provider [phone] Tashia Rice MD Primary Care Provider Janellmijosué [facility], Pcp Primary Care Provider Unavailabl e Reason for Visit * Reason Onset Date Comments E-prescribe Rx Request 01/03/2019 Encounter Details Date Type Department Care Team Description 01/03/[address] [address] Md Leticia E-prescribe Rx Request Social History Tobacco Use [...] encounter Miscellaneous Notes * Telephone Encounter - Belén Sibley MD - 01/04/2019 9:58 AM EDT Done. Rxs sent. * Telephone Encounter - Sowmya Ochoa M.A. - 01/03/2019 11:35 AM EDT Pt requesting refill on Ducosate sodium 100mg prescribed by Veronica Duffy on 12-05-18 for a 30 day supply, please review and advise, I will set up for refill upon your approval. Thank you * Telephone Encounter - Sowmya Ochoa M.A. - 01/03/2019 11:24 AM EDTFrom: Rowena Velasquez Sent: 01/03/2019 11:15 AM EDT Subject: Request Refill Not On Medication List Request submitted by oRwena Velasquez on 01/03/2019 at 11:14:43 AM Form Title: Request Refill Not On Medication List Submitted Data From: Rowena Velasquez Primary care provider: Belén Sibley MD --- Contact Information --- Contact Phone #: [phone] --- Medication Request Information --- Medication name: Docusate sodium softgel Dosage: 100mg instructions: Take 1 capsule daily # Dispensed: 90 days Ordering Provider: [facility] Duffy [facility] Other Details: Please fill Naproxen 500mg,1 tab QD documented in this encounter Plan of Treatment Not on file documented as of this encounter Visit Diagnoses Not on filedocumented in this encounter Care Teams Tank Tender Relationship Specialty Start Date End Date Belén [...]
--- OUTSIDE RECORDS SUMMARY | 2024-07-31 07:54 | XMS_ITS | Encounter Summary ---
Author Organization [facility] Address [address] [place] [address] Care Team Providers Care Board Certified Orthodontist Name Role Phone Marina Mclaughlin MD Primary Care Provider [phone] Tashia Rice MD Primary Care Provider [facility], Pcp Primary Care Provider [facility] Reason for Visit * Reason Onset Date Comments Weather Algorithm Scientist Feedback 03/08/2021 MIGUEL ROSAS Encounter Details Date Type Department Care Team Description 03/08/2021 Telephone Internal Medicine - [address], [address] [place] [address] Marina Mclaughlin MD [address] [place] [phone] Weather Algorithm Scientist Feedback (MIGUEL ROSAS) Social History Tobacco Use Types Packs/Day Years [...] encounter Miscellaneous Notes * Telephone Encounter - Yolande Ramirez - 03/09/2021 12:50 PM EST [facility] Review Request Submission Status[ Save Response to Batch ] Request: [id number] [facility] Trace #: [id number] Subscriber: CORTNEY DOMINIQUE : 1955 Submitter : MARINA MCLAUGHLIN Submitter Type: Provider Referral (#[id number]) Specialty Care Review Type: Initial Certification Status : Certified in total Service Type : Medical Care Place Of Service : Office Visits : 6 Service Date : 03/02/2021-03/02/2022 Service Providers Provider Name ID Provider Type MIGUEL ROSAS NPI : [id number] Service Provider * Telephone Encounter - Kim Mittal - 03/08/2021 1:36 PM EST What insurance does the patient have today? [facility] Effective 12/25/08: BCBS will not retro referral requests over 90 days. If request is for this please instruct patient to call the 800# on their insurance card to appeal. Do not submit a request. Referrals cannot be processed if the insurance is not accurate. If the insurance listed above in red is NO BILLING INFORMATION FOUND FOR THIS ENCOUTNER The patients correct insurance must be obtained and registered in [facility] or their referral can not be processed. Is this a retro request? YES. If yes for what date of service do you need the retro referral? 03/02/21 Who is calling to request this referral? OFFICE If the caller is not the patient, what is their name? [facility] Ask the patient WHO referred them to this specialty: Patient self referred FIRST and LAST NAME of SPECIALIST PATIENT is seeing: MIGUEL ROSAS #OF VISITS: 6 What specialty is this? OUTPATIENT PROCEDURE DIAGNOSIS Patient is being seen for (Not a body part or a procedure): OBSTRUCTIVE CAD I25.10 Have you seen this SPECIALIST for this PROBLEM/DX before?NO If YES, when: Have you checked REVIEW or the APPT DESK to see if this referral has already been done or has visits left? YES Is this visit:Initial Visit Address of Specialist:[address] [place] [address] Phone # of Specialist: Fax #: (if applicable):[phone] Does patient have an appointment scheduled?: YES Date of appointment- (including a retro-request): 03/02/21 Is this appointment related to: Surgery documented in this encounter Plan of Treatment Not on file documented as of this encounter Visit Diagnoses Not on filedocumented in this encounter Care Teams Board Certified Orthodontist Relationship Specialty Start Date End Date Marina Mclaughlin MD PCP - General Internal Medicine 03/08/21 06/09/21 Tashia Rice MD PCP - General Internal Medicine 06/10/21 02/09/22 [facility], Pcp PCP - General Internal Medicine 02/10/22 documented as of this encounter
--- OUTSIDE RECORDS SUMMARY | 2024-07-31 07:54 | XMS_ITS | Encounter Summary ---
Author Organization [facility] Address [address] [place] [address] Care Team Providers Care Straight Slicing Machine Operator Name Role Phone sAh Mcdowell MD Primary Care Provider Marina Bergman MD Primary Care Provider [phone] Tashia Rice MD Primary Care Provider [facility], Pcp Primary Care Provider Unavailabl e Reason for Visit * Reason Onset Date Comments er follow up 01/29/2021 Encounter Details Date Type Department Care Team Description 01/29/2021 Telephone Adult Medicine [address] [address] Ash Mcdowell MD er follow up Social History Tobacco Use Types Packs/Day Years [...] encounter Miscellaneous Notes * Telephone Encounter - Yazmin Wells - 02/01/2021 10:46 AM EST Left a vm to return call * Telephone Encounter - Vira Rodríguez - 01/29/2021 4:[address] Mcdowell states she wants this patient to be seen for an ER followup Called pt lvm re: what hospital, what kj and for what reason documented in this encounter Plan of Treatment Not on file documented as of this encounter Visit Diagnoses Not on filedocumented in this encounter Care Teams Straight Slicing Machine Operator Relationship Specialty Start Date End Date Ash Mcdowell MD PCP - General Internal Medicine 09/17/20 03/07/21 Marina Mclaughlin MD PCP - General Internal Medicine 03/08/21 06/09/21 Tashia Rice MD PCP - General Internal Medicine 06/10/21 02/09/22 [facility], Pcp PCP - General Internal Medicine 02/10/22 documented as of this encounter
--- OUTSIDE RECORDS SUMMARY | 2024-07-31 07:54 | XMS_ITS | Encounter Summary ---
Author Organization [facility] Address [address] [place] [address] Care Team Providers Care Medical Lab Technologist Name Role Phone Belén Sibley MD Primary Care Provider Trip Staton DO Primary Care Provider Ash Mcdonald MD Primary Care Provider UnavailMarina Edwards MD Primary Care Provider [phone] Tashia Rice MD Primary Care Provider Sindhu Ramirez, Pcp Primary Care Provider Elenitaabl e Encounter Details Date Type Department Care Team Description 04/04/2014 SCAN Medical Records [address] [place] [address] Abstract, Provider Social History Tobacco Use Types [...] on file documented as of this encounter Procedures Procedure Name Priority Date/Time Associated Diagnosis Comments OUTSIDE LAB Routine 02/03/2014 documented in this encounter Results * OUTSIDE LAB (02/03/2014) Provider Abstract LAB documented in this encounter Visit Diagnoses Not on filedocumented in this encounter Care Teams Medical Lab Technologist Relationship Specialty Start Date End Date Belén Sibley MD PCP - General Internal Medicine 05/03/11 08/11/20 Trip Tyler DO PCP - General Internal Medicine 08/12/20 1 Ash Mcdowell MD PCP - General Internal Medicine 09/17/20 03/07/21 Marina Mclaughlin MD PCP - General Internal Medicine 03/08/21 06/09/21 Tashia Rice MD PCP - General Internal Medicine 06/10/21 02/09/22 [facility], Pcp PCP - General Internal Medicine 02/10/22 documented as of this encounter
--- OUTSIDE RECORDS SUMMARY | 2024-07-31 07:54 | XMS_ITS | Encounter Summary ---
Author Organization [facility] Address [address] [place] [address] Care Team Providers Care Dinner Cook Name Role Phone Ash Mcdowell MD Primary Care Provider Unavailab Marina Sparks MD Primary Care Provider [phone] Tashia Rice MD Primary Care Provider [facility], Pcp Primary Care Provider [facility] Encounter Details Date Type Department Care Team Description 10/01/2020 Manpower Development Manager Report Medical Records [address] [place] [address] Vladimir Manley MD Social History Tobacco Use [...] have Coronavirus / COVID-19? No / Unsure 09/09/2020 8:22 AM EDT documented as of this encounter Plan of Treatment Not on file documented as of this encounter Visit Diagnoses Not on filedocumented in this encounter Care Teams Dinner Cook Relationship Specialty Start Date End Date Ash Mcdowell MD PCP - General Internal Medicine 09/17/20 03/07/21 Marina Mclaughlin MD PCP - General Internal Medicine 03/08/21 06/09/21 Tashia Rice MD PCP - General Internal Medicine 06/10/21 02/09/22 [facility], Pcp PCP - General Internal Medicine 02/10/22 documented as of this encounter
--- OUTSIDE RECORDS SUMMARY | 2024-07-31 07:54 | XMS_ITS | Encounter Summary ---
Author Organization [facility] Address [address] [place] [address] Care Team Providers Care All Terrain Vehicle Technician Name Role Phone Belén Sibley MD Primary Care Provider Trip Staton DO Primary Care Provider Ash Mcdonald MD Primary Care Provider Unavailab Marina Sparks MD Primary Care Provider [phone] Tashia Rice MD Primary Care Provider [facility], Pcp Primary Care Provider [facility] Encounter Details Date Type Department Care Team Description 03/22/2014 Hospital Medical Records [address] [place] [address] Social History Tobacco Use Types Packs/Day Years [...] on filedocumented in this encounter Care Teams All Terrain Vehicle Technician Relationship Specialty Start Date End Date Belén Sibley MD PCP - General Internal Medicine 05/03/11 08/11/20 Trip Tyler DO PCP - General Internal Medicine 08/12/20 1 Ash Mcdowell MD PCP - General Internal Medicine 09/17/20 03/07/21 Marina Mclaughlin MD PCP - General Internal Medicine 03/08/21 06/09/21 Tashia Rice MD PCP - General Internal Medicine 06/10/21 02/09/22 [facility], Pcp PCP - General Internal Medicine 02/10/22 documented as of this encounter
--- OUTSIDE RECORDS SUMMARY | 2024-07-31 07:54 | XMS_ITS | Encounter Summary ---
Author Organization [facility] Address [address] [place] [address] Care Team Providers Care Extract Mixer Name Role Phone Belén Sibley MD Primary Care Provider Trip Staton DO Primary Care Provider Ash Mcdonald MD Primary Care Provider Unavailab Marina Sparks MD Primary Care Provider [phone] Tashia Rice MD Primary Care Provider [facility], Pcp Primary Care Provider [facility] e Encounter Details Date Type Department Care Team Description 02/24/2014 Hospital Medical Records [address] [place] [address] Jolene Greer MD Social History Tobacco Use Types Packs/Day [...] on filedocumented in this encounter Care Teams Extract Mixer Relationship Specialty Start Date End Date Belén Sibley MD PCP - General Internal Medicine 05/03/11 08/11/20 Trip Tyler DO PCP - General Internal Medicine 08/12/20 1 Ash Mcdowell MD PCP - General Internal Medicine 09/17/20 03/07/21 Marina Mclaughlin MD PCP - General Internal Medicine 03/08/21 06/09/21 Tashia Rice MD PCP - General Internal Medicine 06/10/21 02/09/22 [facility], Pcp PCP - General Internal Medicine 02/10/22 documented as of this encounter
--- OUTSIDE RECORDS SUMMARY | 2024-07-31 07:54 | XMS_ITS | Encounter Summary ---
Author Organization [facility] Address [address] [place] [address] Care Team Providers Care Space And Missile Defense Operations Name Role Phone Johana Shelby MD Primary Care Provider [phone] Devan Lepe MD Primary Care Provider Unav Belén Jacobo MD Primary Care Provider Unava ilTrip Calvert DO Primary Care Provider Janell vailaAsh Lopez MD Primary Care Provider Unavailab Marina Sparks MD Primary Care Provider [phone] Tashia Rice MD Primary Care Provider Unavai [facility], Pcp Primary Care Provider Unavailabl e Reason for Visit * Reason Comments REFERRAL VANESSA Encounter Details Date Type Department Care Team Description 01/17/2000 Telephone Medical [address] [place] [address] Jihan Sequeira PA-C REFERRAL (MAR) Social History Tobacco Use Types Packs/Day Years Used Date Smoking Tobacco: Never Assessed Sex Assigned at Date Recorded Not on file Job Start Date Occupation Industry Not on file Not on file Not on file documented as of this encounter Miscellaneous Notes * Telephone Encounter - 01/17/2000 8:50 AM EDTReferral completed and sent to Central Referrals Dept for processing. ---- * Telephone Encounter - 01/17/2000 8:28 AM EDTCALL RECEIVED. Contact: SELF [phone] REFERRAL REQUESTS NAME OF PROVIDER PT IS SEEING:TO TANA SWAIN TO HAVE INGROWN TOENAILS-PT HAD SPOKEN TO YOU ON December DIAGNOSIS OR SYMPTOMS:IN GROWN TOENAILS DATE OF APPT.:? INITIAL VISIT OR FOLLOW UP?:INITIAL TYPE OF INSURANCE PT HAS:Payor: [facility] Plan: PPO $5 [place] [id number] Product Type: PPO [id number] IS THE DOCTOR HERE TODAY? YES CAN MESSAGE WAIT UNTIL THE DOCTOR RETURNS? YES documented in this encounter Plan of Treatment Not on file documented as of this encounter Visit Diagnoses Not on filedocumented in this encounter Care Teams Space And Missile Defense Operations Relationship Specialty Start Date End Date Johana Shelby MD [address] [place] [address] PCP - General 10/20/05 05/02/11 Devan Lepe [...]
--- OUTSIDE RECORDS SUMMARY | 2024-07-31 07:54 | XMS_ITS ---
Author Organization [facility] Address [address] [place] [address] Care Team Providers Care Documentation Designer Name Role Phone Bonny Bueno MD Primary Care Provider Laura Quintana [phone] REASON FOR VISIT cx appt Encounters Encounter Location Date Provider Diagnosis [address] [phone] 05/01/2024 Laura Wheeler Plan Of Treatment No Information Progress Notes * Cristina DOMINIQUEOB: 7 (69 yo F)Acc No.[id number]:05/01/2024 Patient:?Rowena DOMINIQUE :1955???Age:69 Y???Sex:Female Address:[address] [place] [address], [phone] * true * Date:? Generated for Anai bhavna/Consuelo/eTransmitting on:?07/31/2024 07:54 AM EDT
--- OUTSIDE RECORDS SUMMARY | 2024-07-31 07:54 | XMS_ITS | Encounter Summary ---
Author Organization [facility] Address [address] [place] [address] Care Team Providers Care Internal Wholesaler Name Role Phone Belén Sibley MD Primary Care Provider Trip Staton DO Primary Care Provider Ash Mcdonald MD Primary Care Provider Unavailab Marina Sparks MD Primary Care Provider [phone] Tashia Rice MD Primary Care Provider [facility], Pcp Primary Care Provider [facility] Encounter Details Date Type Department Care Team Description 08/03/2016 Meter Record Clerk Report Medical Records [address] [place] [address] Dejah Carlson FNP Social History Tobacco Use Types Packs/Day Years [...] on filedocumented in this encounter Care Teams Internal Wholesaler Relationship Specialty Start Date End Date Belén [...]
--- OUTSIDE RECORDS SUMMARY | 2024-07-31 07:54 | XMS_ITS | Encounter Summary ---
Author Organization [facility] Address [address] [place] [address] Care Team Providers Care Enchilada Maker Name Role Phone Johana Shelby MD Primary Care Provider [phone] Belén Sibley MD Primary Care Provider UnaTrip Bolaños DO Primary Care Provider Janell Ash Pastrana MD Primary Care Provider Unavailab Marina Sparks MD Primary Care Provider [phone] Tashia Rice MD Primary Care Provider [facility]josu[facility] Pcp Primary Care Provider Unavailabl e Encounter Details Date Type Department Care Team Description 05/03/2006 Hospital Medical Records [address] [place] [address] Mando Carlin MD Social History Tobacco Use Types Packs/Day [...] on filedocumented in this encounter Care Teams Enchilada Maker Relationship Specialty Start Date End Date Johana Shelby MD [address] [place] [id number] PCP - General 10/20/05 05/02/11 Belén Sibley MD [address] [place] [address] PCP - General Internal Medicine 05/03/11 08/11/20 Trip Tyler DO [address] [place] [address] PCP - General Internal Medicine 08/12/20 09/16/20 Ash Mcdowell MD [address] [place], [place] [phone] PCP - General Internal Medicine 09/17/20 03/07/21 Marina Mclaughlin MD [address] [place] [address] PCP - General Internal Medicine 03/08/21 06/09/21 Tashia Rice MD [address] [place] [address] PCP - General Internal Medicine 06/10/21 02/09/22 [facility], Pcp [address] [place] [address] PCP - General Internal Medicine 02/10/22 documented as of this encounter
--- OUTSIDE RECORDS SUMMARY | 2024-07-31 07:54 | XMS_ITS | Encounter Summary ---
Author Organization [facility] Address [address] [place] [address] Care Team Providers Care Lead Janitor Name Role Phone Belén Sibley MD Primary Care Provider Trip Staton DO Primary Care Provider Janell Ash Pastrana MD Primary Care Provider Unavailab Marina Sparks MD Primary Care Provider [phone] Tashia Rice MD [facility] Primary Care Provider Unavailabl e Encounter Details Date Type Department Care Team Description 01/23/2014 Hospital Medical Records [address] [place] [address] Jeyson Hernandez MD [address] [place] [address] Social History Tobacco Use Types Packs/Day Years [...] on filedocumented in this encounter Care Teams Lead Janitor Relationship Specialty Start Date End Date Belén Sibley MD PCP - General Internal Medicine 05/03/11 08/11/20 Trip Tyler DO PCP - General Internal Medicine 08/12/20 1 Ash Mcdowell MD PCP - General Internal Medicine 09/17/20 03/07/21 Marina Mclaughlin MD PCP - General Internal Medicine 03/08/21 06/09/21 Tashia Rice MD PCP - General Internal Medicine 06/10/21 02/09/22 [facility], Pcp PCP - General Internal Medicine 02/10/22 documented as of this encounter
--- OUTSIDE RECORDS SUMMARY | 2024-07-31 07:54 | XMS_ITS | Clinical Summary ---
Author Organization [facility] Address [address] [place] [address] Care Team Providers Care Senior Reservoir Engineer Name Role Phone Tashia Rice MD Primary Care Provider [phone] Surgical History Surgery Date Site/Laterality Comments OTHER SURGICAL HISTORY PROCEDURE: ARTHROSCOPY PROCEDURE NEC; COMMENT: knee ENDOMETRIAL ABLATION 05/03/2006 PROCEDURE: SD ENDOMETRIAL ABLTJ THERMAL W/O HYSTEROSCOPIC GUID; COMMENT: Novasure COLONOSCOPY 2001 PROCEDURE: SD COLONOSCOPY FLX DX W/COLLJ SPEC WHEN PFRMD; COMMENT: diverticulosis COLONOSCOPY 01/07/08 PROCEDURE: SD COLONOSCOPY STOMA DX INCLUDING COLLJ SPEC SPX; COMMENT: Up to cecum, mild sigmoid diverticulosis, tortuous sigmoid colon, otherwise normal colon exam OTHER SURGICAL HISTORY 02/2011 PROCEDURE: SD COLECTOMY PARTIAL W/ANASTOMOSIS; COMMENT: diverticulitis TOTAL KNEE ARTHROPLASTY 2017 Bilateral PROCEDURE: SD ARTHRP KNE CONDYLE&PLATU MEDIAL&LAT COMPARTMENTS COLONOSCOPY 08/29/2018 [...] 03/18/2005 DX:Depressiv e disorder; COMMENT: Admitted to [facility] status post suicide attempt/Vicodin overdose 01/20/14 Allergic rhinitis 03/18/2005 DX:Allergic rh initis Essential tremor 12/13/2018 DX:Essential tr emor Family History Medical History Relation Name Comments Bipolar disorder Daughter Other: CAD Father PTCA, stents, a t age 72, from [place] at age 74 No Known Problems Maternal Grandfather No Known Problems Maternal Grandmother Other: TIA Mother No Known Problems Other No Known Problems Paternal Grandfather No Known Problems Paternal Grandmother No Known Problems Sister Breast cancer Neg Hx Colon cancer Neg Hx Ovarian cancer Neg Hx Relation Name Status Comments Daughter Father [place] 74yo, lipids ,prostate cancer Maternal Grandfather Maternal [...] Documents on File Type Date Recorded Patient Drier Take Off Tender Expl anation Health Care Decision (hx) 02/18/2011 AD ADAMS DIRECTIVE Health Care Decision (hx) 02/18/2011 AD ADAMS DIRECTIVE Health Care Decision (hx) 02/18/2011 AD ADAMS DIRECTIVE Health Care Decision (hx) 02/18/2011 AD ADAMS DIRECTIVE Health Care Decision (hx) 02/18/2011 AD ADAMS DIRECTIVE Care Teams Senior Reservoir Engineer Relationship Specialty Start Date End Date Tashia Rice MD [address] [place] [address] PCP - General Internal Medicine 06/10/21
--- OUTSIDE RECORDS SUMMARY | 2024-07-31 07:54 | XMS_ITS ---
[facility] Address [address] [place] [address] Care Team Providers Care Wax Coating Machine Tender Name Role Phone Bonny Bueno MD Primary Care Provider Laura Quintana Unavailable [phone] Allergies Allergen (clinical drug ingredient) Drug/Non Drug [...] Notes Problem Plantar fasciitis of left foot (1313827220450 9101) Plantar fasciitis of left foot (M72.2) Active confirmed Vital Signs Height 5ft 8inch in 04/04/2024 Weight 202 lbs 04/04/2024 BMI 30.71 kg/m2 04/04/2024 Blood pressure systolic 120 mm Hg 04/04/19 25 Blood pressure diastolic 80 mm Hg 025 Encounters Encounter Location Date Provider Diagnosis [facility] [place] [address] [place] [address] 04/04/2024 Laura Wheeler Pain in left foot [...] Detail Notes Injection Tendon Sheath or Fascia 52055, J 4102 Injection - Plantar Fascia w/ mixture of [...] Notes * Cristina DOMINIQUEOB: (68 yo F)Acc No.[id number]:04/04/2024 Progress Notes Patient:?Rowena DOMINIQUE Provider:?Laura Wheeler DPM :1955???Age:68 Y???Sex:Female D ate:04/04/2024 Address:[address] [place] [address], [id number] Pcp:Bonny Bueno MD Subjective: * Chief Complaints: [...] Foot, LAT, LO, MO, LEFT??Taken by trained?Podiatric Nutritionalist (?EF).?Findings:? normal bone and soft tissue density [...] with: INJECTIONTHERAPY.pdf (INJECTIONTHERAPY.pdf)?? * Procedures:?Injection:?Tendon Sheath or Fascia?67900, J0702 Injection - Plantar Fascia w/ mixture [...] ( 0-1) out of 10.? * Procedure Codes:?23362 X-RAY EXAM OF LEFT FOOT 3V, Modifiers: [...] Interfil injection therapy, as well as surgical [place]/Endoscopic Fasciitomy surgical procedures if needed. Recommendations were [...] DPM Date:?0 04/04/2024 Generated for Judah huggins/Consuelo/Rodrigue on:?07/31/2024 07:53 AM EDT History and Physical Notes * [...] LO, MO, LEFT Taken by trained Podiatric Nutritionalist ( EF) Clinical Indication(s): Evaluate for Fra [...]
--- OUTSIDE RECORDS SUMMARY | 2024-07-31 07:54 | XMS_ITS | Encounter Summary ---
Author Organization [facility] Address [address] [place] [address] Care Team Providers Care Coffee Grower Name Role Phone Johana Shelby MD Primary Care Provider [phone] Belén Sibley MD Primary Care Provider Unava Trip Arce DO Primary Care Provider Janell Ash Pastrana MD Primary Care Provider Unavailab Marina Sparsk MD Primary Care Provider [phone] Tashia Rice MD Primary Care Provider Unavajosué [facility], Pcp Primary Care Provider Unavailabl e Reason for Visit * Reason Onset Date Comments Provider Call Back 04/20/2011 Encounter Details Date Type Department Care Team Description 04/20/2011 Telephone General Surgery [address] [place], [place] [id number] Shawn Tobar MD [address] [place] [address] Provider Call Back Social History Tobacco Use Types Packs/Day Years [...] encounter Miscellaneous Notes * Telephone Encounter - Danyell Sidhu L.P.N. - 04/21/2011 9:41 AM EST I spoke with Rowena re: bleeding, pt states she has a hx of hemorrhoids & she sees bright red blood intermittently when she has a bowel movement. I offered an appt with Dr. Tobar, Pt is going to see her PCP to evaluate her for hemorrhoids if she needs to see Dr. Tobar she will call us back. * Telephone Encounter - Magdalena Pastrana - 04/20/2011 4:39 PM EST Patient called because she had a colectomy done 03/03/2012 and is now experiencing blood in her stool. Patient is concerned please contact her at [phone]. documented in this encounter Plan of Treatment Not on file documented as of this encounter Visit Diagnoses Not on filedocumented in this encounter Care Teams Coffee Grower Relationship Specialty Start Date End Date Johana Shelby MD [address] [place] [address] PCP - General 10/20/05 05/02/11 Belén Sibley MD [address] [place] [address] PCP - General Internal Medicine 05/03/11 08/11/20 Trip Tyler DO [address] [place] [address] PCP - General Internal Medicine 08/12/20 09/16/20 Ash Mcdowell MD [address] [place] [address] PCP - General Internal Medicine 09/17/20 03/07/21 Marina Mclaughlin MD [address] [place] [address] PCP - General Internal Medicine 03/08/21 06/09/21 Tashia Rice MD [address] [place], [place] [id number] PCP - General Internal Medicine 06/10/21 02/09/22 [facility], Pcp [address] [place], [place] [address] PCP - General Internal Medicine 02/10/22 documented as of this encounter
--- OUTSIDE RECORDS SUMMARY | 2024-07-31 07:54 | XMS_ITS | Encounter Summary ---
Author Organization [facility] Address [address] [place] [address] Care Team Providers Care Packaging Sales Consultant Name Role Phone Belén Sibley MD Primary Care Provider Trip Staton DO Primary Care Provider Ash Mcdonald MD Primary Care Provider Unavailab Marina Sparks MD Primary Care Provider [phone] Tashia Rice MD Primary Care Provider [facility], Pcp Primary [facility] Encounter Details Date Type Department Care Team Description 02/24/2015 Business Development Executive Report Medical Records [address] [place] [address] Abstract, Provider Social History Tobacco Use Types [...] on filedocumented in this encounter Care Teams Packaging Sales Consultant Relationship Specialty Start Date End Date Belén Sibley MD PCP - General Internal Medicine 05/03/11 08/11/20 Trip Tyler DO PCP - General Internal Medicine 08/12/20 1 Ash Mcdowell MD PCP - General Internal Medicine 09/17/20 03/07/21 Marina Mclaughlin MD PCP - General Internal Medicine 03/08/21 06/09/21 Tashia Rice MD PCP - General Internal Medicine 06/10/21 02/09/22 [facility], Pcp PCP - General Internal Medicine 02/10/22 documented as of this encounter
--- OUTSIDE RECORDS SUMMARY | 2024-07-31 07:55 | XMS_ITS | Encounter Summary ---
Author Organization [facility] Address [facility] [place] [address] Care Team Providers Care Ring Barker Operator Name Role Phone Belén Sibley MD Primary Care Provider Trip Staton DO Primary Care Provider Janell Ash Pastrana MD Primary Care Provider Unavailab Marina Sparks MD Primary Care Provider [phone] Tashia Rice MD Primary Care Provider [facility], Pcp Primary Care [facility] Encounter Details Date Type Department Care Team Description 11/29/2015 Orders Only Adult Medicine [address] [address] Teresa Betancourt MD Social History Tobacco Use Types Packs/Day [...] on filedocumented in this encounter Care Teams Ring Barker Operator Relationship Specialty Start Date End Date Belén Sibley MD PCP - General Internal Medicine 05/03/11 08/11/20 Trip Tyler DO PCP - General Internal Medicine 08/12/20 1 Ash Mcdowell MD PCP - General Internal Medicine 09/17/20 03/07/21 Marina Mclaughlin MD PCP - General Internal Medicine 03/08/21 06/09/21 Tashia Rice MD PCP - General Internal Medicine 06/10/21 02/09/22 [facility], Pcp PCP - General Internal Medicine 02/10/22 documented as of this encounter
--- OUTSIDE RECORDS SUMMARY | 2024-07-31 07:55 | XMS_ITS | Encounter Summary ---
Author Organization [facility] Address [address] [place] [address] Care Team Providers Care Metal Sheet Roller Operator Name Role Phone Belén Sibley MD Primary Care Provider Trip Staton DO Primary Care Provider Janell Ash Pastrana MD Primary Care Provider UnavailMarina Edwards MD Primary Care Provider [phone] Tashia Rice MD Primary Care Provider [facility], Pcp Primary Care Provider Unavailabl e Encounter Details Date Type Department Care Team Description 03/02/2016 Furnace Room Supervisor Report Medical Records [address] [place], [place] [id number] [place] [address] [address] [place] [address] Social History Tobacco Use Types Packs/Day Years [...] on filedocumented in this encounter Care Teams Metal Sheet Roller Operator Relationship Specialty Start Date End Date Belén Sibley MD PCP - General Internal Medicine 05/03/11 08/11/20 Trip Tyler DO PCP - General Internal Medicine 08/12/20 1 Ash Mcdowell MD PCP - General Internal Medicine 09/17/20 03/07/21 Marina Mclaughlin MD PCP - General Internal Medicine 03/08/21 06/09/21 Tashia Rice MD PCP - General Internal Medicine 06/10/21 02/09/22 [facility], Pcp PCP - General Internal Medicine 02/10/22 documented as of this encounter
--- OUTSIDE RECORDS SUMMARY | 2024-07-31 07:55 | XMS_ITS | Encounter Summary ---
Author Organization [facility] Address [address] [place] [address] Care Team Providers Care Lead Cargo Mover Name Role Phone Johana Shelby MD Primary Care Provider [phone] Devan Lepe MD Primary Care Provider Unav Belén Jacobo MD Primary Care Provider Unava ilTrip Calvert DO Primary Care Provider Janell vailaAsh Lopez MD Primary Care Provider Unavailab Marina Sparks MD Primary Care Provider [phone] Tashia Rice MD Primary Care Provider Unavai [facility], Pcp Primary Care Provider Unavailabl e Reason for Visit * Reason Comments REFERRAL KM-DR REYES Encounter Details Date Type Department Care Team Description 09/30/2003 Telephone Adult [address] [address] Devan Lepe MD REFERRAL (EYES-DR REYES) Social History Tobacco Use Types Packs/Day Years Used Date Smoking Tobacco: Never Assessed Sex Assigned at Date Recorded Not on file Job Start Date Occupation Industry Not on file Not on file Not on file documented as of this encounter Miscellaneous Notes * Telephone Encounter - 09/30/2003 4:12 PM EDTCALL RECEIVED. Contact: [phone] Payor: HUSSAIN Plan: HMO $10 [place] [id number] Product Type: HMO [id number] documented in this encounter Plan of Treatment Not on file documented as of this encounter Visit Diagnoses Not on filedocumented in this encounter Care Teams Lead Cargo Mover Relationship Specialty Start Date End Date Johana Shelby MD [address] [place] [address] PCP - General 10/20/05 05/02/11 Devan Lepe [...] General Internal Medicine 06/10/21 02/09/22 [facility], Pcp PCP - General Internal Medicine 02/10/22 documented as of this encounter
--- OUTSIDE RECORDS SUMMARY | 2024-07-31 07:55 | XMS_ITS | Encounter Summary ---
Author Organization [facility] Address [address] [place] [address] Care Team Providers Care Singing Messenger Name Role Phone Belén Sibley MD Primary Care Provider Trip Staton DO Primary Care Provider Janell Ash Pastrana MD Primary Care Provider Unavailab Marina Sparks MD Primary Care Provider [phone] Tashia Rice MD Primary Care Provider Janellvajosué [facility], Pcp Primary Care Provider Unavailabl e Reason for Visit * Reason Onset Date Comments Leg Problem 10/11/2015 Encounter Details Date Type Department Care Team Description 10/11/2015 Telephone Adult Urgent Care - [address] [address] Belén Sibley MD Leg Problem Social History Tobacco Use Types Packs/Day Years [...] encounter Miscellaneous Notes * Telephone Encounter - Jose Cedeno L.P.N. 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 Of blood clot in left leg If pain or injury related was it due to an accident at work or from a motor vehicle accident? NO If yes, gather 3rd republic[employer] insurance information Date of accident/Injury: How long has patient had these symptoms?: yesterday PCP: Belén Sibley Payor: [employer] IONIA / Plan: SecernoO $15 [place] 1 / Product Type: HMO [id number] documented in this encounter Plan of Treatment Not on file documented as of this encounter Visit Diagnoses Not on filedocumented in this encounter Care Teams Singing Messenger Relationship Specialty Start Date End Date Belén [...]
--- OUTSIDE RECORDS SUMMARY | 2024-07-31 07:55 | XMS_ITS | Encounter Summary ---
Author Organization [facility] Address [address] [place] [address] Care Team Providers Care Computer Clerk Name Role Phone Belén Sibley MD Primary Care Provider Trip Staton DO Primary Care Provider Ash Mcdonald MD Primary Care Provider Unavailab Marina Sparks MD Primary Care Provider [phone] Tashia Rice MD Primary Care Provider [facility], Pcp Primary Care Provider [facility] Encounter Details Date Type Department Care Team Description 01/23/2012 Locomotive Driver Report Medical Records [address] [place] [address] Burak Blandon Social History Tobacco Use Types Packs/Day Years [...] on filedocumented in this encounter Care Teams Computer Clerk Relationship Specialty Start Date End Date Belén Sibley MD PCP - General Internal Medicine 05/03/11 08/11/20 Trip Tyler DO PCP - General Internal Medicine 08/12/20 1 Ash Mcdowell MD PCP - General Internal Medicine 09/17/20 03/07/21 Marina Mclaughlin MD PCP - General Internal Medicine 03/08/21 06/09/21 Tashia Rice MD PCP - General Internal Medicine 06/10/21 02/09/22 [facility], Pcp PCP - General Internal Medicine 02/10/22 documented as of this encounter
--- OUTSIDE RECORDS SUMMARY | 2024-07-31 07:55 | XMS_ITS | Encounter Summary ---
Author Organization [facility] Address [address] [place] [address] Care Team Providers Care Log Hooker Name Role Phone Belén Sibley MD Primary Care Provider Trip Staton DO Primary Care Provider Ash Mcdonald MD Primary Care Provider Unavailab Marina Sparks MD Primary Care Provider [phone] Tashia Rice MD Primary Care Provider [facility], Pcp [facility] Encounter Details Date Type Department Care Team Description 09/02/2015 Donor Relations Coordinator Report Medical Records [address] [place] [address] Social History Tobacco Use Types Packs/Day Years [...] on filedocumented in this encounter Care Teams Log Hooker Relationship Specialty Start Date End Date Belén Sibley MD PCP - General Internal Medicine 05/03/11 08/11/20 Trip Tyler DO PCP - General Internal Medicine 08/12/20 1 Ash Mcdowell MD PCP - General Internal Medicine 09/17/20 03/07/21 Mraina Mclaughlin MD PCP - General Internal Medicine 03/08/21 06/09/21 Tsahia Rice MD PCP - General Internal Medicine 06/10/21 02/09/22 [facility], Pcp PCP - General Internal Medicine 02/10/22 documented as of this encounter
--- OUTSIDE RECORDS SUMMARY | 2024-07-31 07:55 | XMS_ITS | Encounter Summary ---
Author Organization [facility] Address [address] [place] [address] Care Team Providers Care Cotton Cleaner Name Role Phone Belén Sibley MD Primary Care Provider Trip Staton DO Primary Care Provider Janell Ash Pastrana MD Primary Care Provider Unavailab Marina Sparks MD Primary Care Provider [phone] Tashia Rice MD Primary Care Provider Sindhu [facility], Pcp Primary Care Provider Unavailabl e Reason for Visit * Reason Onset Date Comments Prior Authorization 11/26/2019 Encounter Details Date Type Department Care Team Description 11/26/2019 Telephone Adult Medicine [address] [address] Belén Sibley MD Prior Authorization Social History Tobacco Use Types Packs/Day Years [...] encounter Miscellaneous Notes * Telephone Encounter - Maddy Zimmer PA-C - 11/27/2019 12:46 PM EDT I have sent reglan to the pharmacy * Telephone Encounter - Lilliana Finn M.A. - 11/27/2019 10:36 AM EDT Zofran was denied not sure of alternative. Probably meclizine Please reply back to p [phone] Prior Auth pool Lilliana Finn M.A. Regional Prior Authorizations Ext [id number] Fax: [phone] [place] back to p [phone] Prior Auth pool * Telephone Encounter - Lilliana Finn M.A. - 11/26/2019 3:12 PM EDT Prior auth done for zofran via covermymeds Dx nausea and vomiting Pt had fallen and hit her head, given zofran in hosp. Would like her to continue for a few more days * Telephone Encounter - Yazmin Wells - 11/26/2019 1:56 PM EDT Prior Authorization for Medication-do not complete and send this encounter unless you have the fax from the pharmacy. Is this a Cover My Meds request: Yes -- Rivas Code [id number] Name of Medication ondansetron (ZOFRAN) Dose of Medication 4 MG tablet What is the RX # from the faxed refill? N/A How does patient take this med? Take 1 Tab by mouth every 8 hours as needed for Nausea. - Oral What Pharmacy did the fax come from: [facility] Pharmacy Pharmacy fax #: [phone] [employer] Information from fax: What Prescription Plan does the patient have? N/A BIN/PCN if applicable: N/A Cardholder ID:N/A Person Code: N/A Relationship Code: N/A Help desk phone: N/A documented in this encounter Plan of Treatment Not on file documented as of this encounter Visit Diagnoses Not on filedocumented in this encounter Care Teams Cotton Cleaner Relationship Specialty Start Date End Date Belén Sibley MD PCP - General Internal Medicine 05/03/11 08/11/20 Trip Tyler DO PCP - General Internal Medicine 08/12/20 1 Ash Mcdowell MD PCP - General Internal Medicine 09/17/20 03/07/21 Marina Mclaughlin MD PCP - General Internal Medicine 03/08/21 06/09/21 Tashia Rice MD PCP - General Internal Medicine 06/10/21 02/09/22 [facility], Pcp PCP - General Internal Medicine 02/10/22 documented as of this encounter
--- OUTSIDE RECORDS SUMMARY | 2024-07-31 07:55 | XMS_ITS | Encounter Summary ---
Author Organization [facility] Address [address] [place] [address] Care Team Providers Care Mine Foreman Name Role Phone Belén Sibley MD Primary Care Provider Trip Staton DO Primary Care Provider Ash Mcdonald MD Primary Care Provider Unavailab Marina Sparks MD Primary Care Provider [phone] Tashia Rice MD Primary Care Provider [facility], Pcp Primary Care [facility] Encounter Details Date Type Department Care Team Description 01/03/2012 Release of Information Medical Records [address] [place] [address] Abstract, Provider Social History Tobacco Use Types [...] on filedocumented in this encounter Care Teams Mine Foreman Relationship Specialty Start Date End Date Belén [...]
--- OUTSIDE RECORDS SUMMARY | 2024-07-31 07:55 | XMS_ITS | Encounter Summary ---
Author Organization [facility] Address [address] [place] [address] Care Team Providers Care Ring Packer Name Role Phone Belén Sibley MD Primary Care Provider Trip Staton DO Primary Care Provider Ash Mcdonald MD Primary Care Provider Marina Bergman MD Primary Care Provider [phone] Tashia Rice MD Primary Care Provider Sindhu [facility], Pcp Primary Care Provider Unavailabl e Reason for Visit * Reason Onset Date Comments DME Request 11/26/2015 Encounter Details Date Type Department Care Team Description 11/26/2015 Pt. Non Urgent Medical Question Adult [address] [address] Belén Sibley MD Leg edema, left (Primary Dx); Varicose veins Social History Tobacco Use Types Packs/Day Years Used Date Smoking Tobacco: Never Smokeless Tobacco: Never Alcohol Use Standard Drinks/Week Comments Yes 0 (1 standard drink = 0.6 oz pur e alcohol) 2 drinks per week Sex Assigned at Date Recorded Not on file Job Start Date Occupation Industry Not on file Not on file Not on file documented as of this encounter Progress Notes * Evon CarvalhoPIzzyN. - 11/26/2015 9:08 AM EDTFrom: Rowena Velasquez To: Belén Sibley MD Sent: 11/26/2015 8:18 AM EDT Subject: script for compression stockings Good morning Would you please write out a new script for knee high compression stockings . And mail to me Rowena Velasquez [address] [place] [address] The script should include the following to be filled: Moderate compression knee high 15-20 mmHg These are used for the swelling of the left leg injury, and vericosities. Thank you for your time Rowena documented in this encounter Plan of Treatment Not on file documented as of this encounter Procedures Procedure Name Priority Date/Time Associated Diagnosis Comments COMPRESSION STOCKING Routine 11/26/2015 11:41 AM EDT Leg edema, left Varicose veins documented in this encounter Visit Diagnoses Diagnosis Leg edema, left- Primary Edema Varicose veins Asymptomatic varicose veins documented in this encounter Care Teams Ring Packer Relationship Specialty Start Date End Date Belén Sibley MD PCP - General Internal Medicine 05/03/11 08/11/20 Trip Tyler DO PCP - General Internal Medicine 08/12/20 1 Ash Mcdowell MD PCP - General Internal Medicine 09/17/20 03/07/21 Marina Mclaughlin MD PCP - General Internal Medicine 03/08/21 06/09/21 Tashia Rice MD PCP - General Internal Medicine 06/10/21 02/09/22 [facility], Pcp PCP - General Internal Medicine 02/10/22 documented as of this encounter
--- OUTSIDE RECORDS SUMMARY | 2024-07-31 07:55 | XMS_ITS | Encounter Summary ---
Author Organization [facility] Address [address] [place] [address] Care Team Providers Care Flame Brazing Machine Operator Name Role Phone Belén Sibley MD Primary Care Provider Trip Staton DO Primary Care Provider Ash Mcdonald MD Primary Care Provider Unavailab Marina Sparks MD Primary Care Provider +1- [phone] Tashia Rice MD Primary Care Provider [facility], Pcp Primary Care [facility] Encounter Details Date Type Department Care Team Description 01/06/2012 Art Glass Designer Report Medical Records [address] [place] [id number] Burak Blandon Social History Tobacco Use Types [...] on filedocumented in this encounter Care Teams Flame Brazing Machine Operator Relationship Specialty Start Date End Date Belén Sibley MD PCP - General Internal Medicine 05/03/11 08/11/20 Trip Tyler DO PCP - General Internal Medicine 08/12/20 1 Ash Mcdowell MD PCP - General Internal Medicine 09/17/20 03/07/21 Marina Mclaughlin MD PCP - General Internal Medicine 03/08/21 06/09/21 Tashia Rice MD PCP - General Internal Medicine 06/10/21 02/09/22 [facility], Pcp PCP - General Internal Medicine 02/10/22 documented as of this encounter
--- OUTSIDE RECORDS SUMMARY | 2024-07-31 07:55 | XMS_ITS | Encounter Summary ---
Author Organization [facility] Address [address] [place] [address] Care Team Providers Care Apple Picker Name Role Phone Belén Sibley MD Primary Care Provider Trip Staton DO Primary Care Provider Ash Mcdonald MD Primary Care Provider Unavailab Marina Sparks MD Primary Care Provider +1- [phone] aTshia Rice MD Primary Care Provider [facility], Pcp Primary Care Provider [facility] Encounter Details Date Type Department Care Team Description 11/27/2019 Party Plan Sales Host/Hostess Report Medical Records [address] [place] [id number] Dejah Carlson FNP Social History Tobacco Use [...] on filedocumented in this encounter Care Teams Apple Picker Relationship Specialty Start Date End Date Belén [...]
--- OUTSIDE RECORDS SUMMARY | 2024-07-31 07:55 | XMS_ITS | Encounter Summary ---
Author Organization [facility] Address [address] [place] [address] Care Team Providers Care Networking Administrator Name Role Phone Belén Sibley MD Primary Care Provider Trip Staton DO Primary Care Provider Ash Mcdonald MD Primary Care Provider Unavailab Marina Sparks MD Primary Care Provider [phone]- [phone] Tashia Rice MD Primary Care Provider [facility], Pcp Primary Care Provider [facility] e Encounter Details Date Type Department Care Team Description 03/05/2012 Sinter Feeder Report Medical Records [address] [place] [phone] Elizabeth Fleming MD Social History Tobacco Use Types Packs/Day [...] on filedocumented in this encounter Care Teams Networking Administrator Relationship Specialty Start Date End Date Belén Sibley MD PCP - General Internal Medicine 05/03/11 08/11/20 Trip Tyler DO PCP - General Internal Medicine 08/12/20 1 Ash Mcdowell MD PCP - General Internal Medicine 09/17/20 03/07/21 Marina Mclaughlin MD PCP - General Internal Medicine 03/08/21 06/09/21 Tashia Rice MD PCP - General Internal Medicine 06/10/21 02/09/22 [facility], Pcp PCP - General Internal Medicine 02/10/22 documented as of this encounter
[2024-07-31 08:02] VITALS: BP 118/76; PULSE 62; RESP 20; TEMP 36.7; O2SAT 95; BMI 31.8
--- NOTE | 2024-07-31 08:02 | A.OFFPC_ITS ---
Vital Signs 07/31/24 08:02 Height 5 ft 8 in Weight 209 lb BMI 31.8 BP 118/76 Blood Pressure Location Lt brachial Position Sitting Respiration 20 Pulse 62 Pulse Source Pulse Oximeter Temp 98.1 F Temp Source Oral Pulse Oximetry (%) 95 Oxygen Delivery Method Room Air Intake Visit Reasons: Hospital follow up Intake Note: Pt is here today for Hospital follow up visit. Allergies oxycodone [From PERCODAN] Allergy (Intermediate, Verified 07/31/24 08:04) HIVES rosuvastatin [From Crestor] Adverse Reaction (Intermediate, Verified 07/31/24 08:04) body aches Hydrocodone-Acetaminophen Adverse Reaction (Unknown, Uncoded 07/31/24 08:04) nausea and vomiting Medication List - Last Reconciled 07/31/24 by Bonny Bueno MD acetaminophen (Acetaminophen Extra Strength) 1,000 mg PO DAILY PRN albuterol sulfate 90 mcg/actuation 2 inhalations inhalation Q6-8H PRN apixaban (Eliquis) 5 mg PO BID ascorbic acid (vitamin C) 1,000 mg PO DAILY Breo Ellipta 100-25 mcg/dose (fluticasone furoate-vilanterol) 1 inh inhalation DAILY NS buspirone 5 mg PO BID cholecalciferol (vitamin D3) (Vitamin D3) 50 mcg PO DAILY docusate sodium 100 mg PO BEDTIME evolocumab (Repatha SureClick) 140 mg subcut Q2W ezetimibe (Zetia) 10 mg PO DAILY fluoxetine 20 mg PO DAILY hydroxyzine HCl 12.5 - 25 mg PO DAILY PRN lamotrigine 250 mg PO BEDTIME latanoprost 0.005% 1 drp ophthalmic (eye) BEDTIME metoprolol tartrate 50 mg (2 x 25 mg) PO BID [id number]-[id number]-[id number] (Multivitamin 50 Plus tablet) 1 tab PO DAILY trazodone 100 - 200 mg PO BEDTIME Tobacco use date assessed: 07/31/24 Fall risk assessment: No Falls in past year Last assessed Fall Risk: 07/31/24 Dental Screening Dental Screen Date: 04/17/24 [facility] Hospital follow up HPI Details Pt presents for f/u ER visit for episode of lightheadedness with chest pain and palpitations lasted for about an hour. Patient has been having similar episodes weekly. She has implanted loop recorder which has not detected any arrhythmias during the episodes. Patient reports being anxious and under lot of stress related to her family living with her. she is established with psychotherapist and prescriber. Patient denies depression, suicide ideation or insomnia. She was prescribed hydroxyzine to take as needed but reports feeling very sleepy and sedated after taking it. [facility] Medical History (Updated 07/31/24 @ 08:44 by Bonny Bueno MD) Palpitations Hypertension Asthma Anxiety Chronic low back pain On anticoagulant therapy On beta francisco at home PAF (paroxysmal atrial fibrillation) Surgical History H/O cardiac radiofrequency ablation H/O colonoscopy History of evacuation of hematoma History of bowel resection History of knee surgery Family History Father Myocardial infarction CVD (cardiovascular disease) Mother Mental health disorder Sister Mental health disorder Social History Household Members: Spouse, Family and Children 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:: , 2 children, 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, 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 Are you a primary wound care physician to a significant other at home: Yes Do you presently have visiting nurse or other home services: No Alcohol intake: current Alcohol intake frequency: a few times a week Alcohol type: wine Patient Tobacco Use Status: Never used Tobacco e-Cigarette/Vaping Use: Never Used Advance Directives Date on File: 05/24/23 service: No Current occupational status: retired 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 Current occupational exposures/hazards: No Cognitive needs: No Hearing needs: No Vision needs: Yes Questionnaire Thrive Questionnaire Date Thrive assessed: 04/10/24 I am a: Patient What is your living situation today?: I have a steady place to live Within the past 12 months, did the food you bought not last and you didn't have the money to get more?: Never true Within the past 12 months, did you worry whether your food would run out before you got money to buy more?: Never true Do you have trouble paying for medicines?: No Do you have trouble getting transportation to medical appointments?: No Do you have trouble paying your heating and electricity bill?: No Do you have trouble taking care of your child, family member or friend?: No Do you have trouble with day-to-day activities such as bathing, preparing meals, shopping, managing finances, etc.?: No Are you currently unemployed and looking for a job?: No Are you interested in more education?: No Please select the resources that you would like help with: None Currently or been in a relationship where the following occur: No concerns reported THRIVE Score: 0 MERLIN-7 AMB Questionnaire MERLIN-7 Date MERLIN - 7 assessed: 11/01/23 Source: Developed by Drs. Trip Miller, Susan Hewitt, Raman Gibson and colleagues, with an educational celio from [employer]. Review of Systems Const All systems reviewed & are unremarkable except as noted in HPI and below Eyes Reports no additional complaints ENT Reports no additional complaints Card Reports no additional complaints Resp Reports no additional complaints GI Reports no additional complaints Reports no additional complaints Physical exam (Primary Care) Vital Signs: Last Vital Signs Temp 98.1 F 07/31/24 08:02 Pulse 62 07/31/24 08:02 Resp 20 07/31/24 08:02 BP 118/76 07/31/24 08:02 Pulse Ox 95 07/31/24 08:02 Oxygen Delivery Method Room Air 07/31/24 08:02 BMI result Body Mass Index 31.8 Tobacco/Smoking Status: Tobacco use Status Tobacco use date assessed 07/31/24 07/31/24 08:07 Patient Tobacco Use Status Never used Tobacco 07/31/24 08:07 e-Cigarette/Vaping Use Never Used 07/31/24 08:07 Thrive Assessment: Date of Thrive Assessment Date Thrive assessed 04/10/24 07/31/24 08:07 Currently or been in a relationship where the following occur: No concerns reported Const General: no acute distress HENMT Head: Yes normal to inspection Eyes General: appearance normal, both eyes and all related structures Resp Effort & Inspection: normal respiratory effort Auscultation: clear to auscultation bilaterally Cardio Rhythm: regular rhythm Heart sounds: S1 normal heart sound present and S2 normal heart sound present Coding Level of Care Code Est Pt Level 4 (72874) Diagnoses PAF (paroxysmal atrial fibrillation) I48.0 Palpitations R00.2 Anxiety F41.9 Assessment & Plan Assessment & Plan (1) PAF (paroxysmal atrial fibrillation): Comment: s/p catheter ablation 09/2023 [facility] Code(s): I48.0 - Paroxysmal atrial fibrillation Category: Medical Plan: On Eliquis and metoprolol established with Cardiology (2) Palpitations: Comment: Negative cardiac workup related to anxiety Code(s): R00.2 - Palpitations Category: Medical Plan: Stress management discussed with the patient she was advised to increase physical activity and continue counseling (3) Anxiety: Code(s): F41.9 - Anxiety disorder, unspecified Category: Medical Plan: Add 5 mg of BuSpar twice a day and follow-up with counselor and HVAC SHEET METAL INSTALLER prescriber Medications: New buspirone 5 mg PO BID 60 tabs 0RF
== END 2024-07-31 08:48 | disposition home or self-care (01) ==
LOC: HO.HMCC 07:51
PROVIDERS: PCP Internal Medicine; Visit Provider Internal Medicine
DX: I48.0 Paroxysmal atrial fibrillation (principal); R00.2 Palpitations; F41.9 Anxiety disorder, unspecified

== ENCOUNTER → 2024-07-31 07:51 | Outpatient (BNVA) | payer MEDICARE, SELFPAY | PROVIDERS: PCP Internal Medicine; Visit Provider Internal Medicine | DX: I48.0 Paroxysmal atrial fibrillation (principal); R00.2 Palpitations; F41.9 Anxiety disorder, unspecified; Z79.01 Long term (current) use of anticoagulants | CPT/HCPCS: 99212 ==

== ENCOUNTER 2024-08-09 07:49 | Outpatient (AMB) | payer MEDICARE, SELFPAY ==
--- OUTSIDE RECORDS SUMMARY | 2024-08-09 07:53 | XMS_ITS | Encounter Summary ---
Author Organization [facility] Address [address] [place] [address] Care Team Providers Care Gas Usage Meter Clerk Name Role Phone Belén Sibley MD Primary Care Provider Trip Staton DO Primary Care Provider Ash Mcdonald MD Primary Care Provider Unavailab Marina Sparks MD Primary Care Provider [phone]- [phone] Tashia Rice MD Primary Care Provider [facility], Pcp Primary Care Provider [facility] e Encounter Details Date Type Department Care Team Description 11/13/2018 Job Site Superintendent Report Medical Records [address] [place] [phone] Nay Donovan MD Social History Tobacco Use Types Packs/Day [...] on filedocumented in this encounter Care Teams Gas Usage Meter Clerk Relationship Specialty Start Date End Date [...]
--- OUTSIDE RECORDS SUMMARY | 2024-08-09 07:53 | XMS_ITS | Encounter Summary ---
Author Organization [facility] Address [address] [place] [address] Care Team Providers Care Aml Analyst Name Role Phone Belén Sibley MD Primary Care Provider Trip Staton DO Primary Care Provider Ash Mcdonald MD Primary Care Provider Unavailab Marina Sparks MD Primary Care Provider [phone]- [phone] Tashia Rice MD Primary Care Provider [facility], Pcp Primary Care Provider [facility] Encounter Details Date Type Department Care Team Description 03/05/2012 Housekeeping Associate Report Medical Records [address] [place] [phone] Elizabeth Fleming MD Social History Tobacco Use [...] on filedocumented in this encounter Care Teams Aml Analyst Relationship Specialty Start Date End Date Belén Sibley MD PCP - General Internal Medicine 05/03/11 08/11/20 Trip Tyler DO PCP - General Internal Medicine 08/12/20 1 Ash Mcdowell MD PCP - General Internal Medicine 09/17/20 03/07/21 Marina Mclaughlin MD PCP - General Internal Medicine 03/08/21 06/09/21 Tashia Rice MD PCP - General Internal Medicine 06/10/21 02/09/22 [facility], Pcp PCP - General Internal Medicine 02/10/22 documented as of this encounter
--- OUTSIDE RECORDS SUMMARY | 2024-08-09 07:53 | XMS_ITS | Encounter Summary ---
Author Organization [facility] Address [address] [place] [address] Care Team Providers Care Travel Insurance Agent Name Role Phone Belén Sibley MD Primary Care Provider Trip Staton DO Primary Care Provider Ash Mcdonald MD Primary Care Provider Unavailab Marina Sparks MD Primary Care Provider [phone]- [phone] Tashia Rice MD Primary Care Provider [facility], Pcp [facility] Encounter Details Date Type Department Care Team Description 08/31/2016 Hospital Medical Records [address] [place] [phone] Gayle Seo Social History Tobacco Use Types [...] on filedocumented in this encounter Care Teams Travel Insurance Agent Relationship Specialty Start Date End Date Belén Sibley MD PCP - General Internal Medicine 05/03/11 08/11/20 Trip Tyler DO PCP - General Internal Medicine 08/12/20 1 Ash Mcdowell MD PCP - General Internal Medicine 09/17/20 03/07/21 Marina Mclaughlin MD PCP - General Internal Medicine 03/08/21 06/09/21 Tashia Rice MD PCP - General Internal Medicine 06/10/21 02/09/22 [facility], Pcp PCP - General Internal Medicine 02/10/22 documented as of this encounter
--- OUTSIDE RECORDS SUMMARY | 2024-08-09 07:53 | XMS_ITS | Encounter Summary ---
Author Organization [facility] Address [address] [place] [address] Care Team Providers Care Paint Laboratory Technician Name Role Phone Belén Sibley MD Primary Care Provider Trip Staton DO Primary Care Provider Ash Mcdonald MD Primary Care Provider Unavailab Marina Sparks MD Primary Care Provider [phone]- [phone] Tashia Rice MD Primary Care Provider [facility], Pcp Primary Care Provider [facility] Encounter Details Date Type Department Care Team Description 03/19/2014 Hospital Medical Records [address] [place] [address] Tisha Steinberg Social History Tobacco Use Types Packs/Day Years [...] on filedocumented in this encounter Care Teams Paint Laboratory Technician Relationship Specialty Start Date End Date [...]
--- OUTSIDE RECORDS SUMMARY | 2024-08-09 07:53 | XMS_ITS | Encounter Summary ---
Author Organization [facility] Address [address] [place] [address] Care Team Providers Care Inspector Penetrant Name Role Phone Belén Sibley MD Primary Care Provider Trip Staton DO Primary Care Provider Ash Mcdonald MD Primary Care Provider Marina Bergman MD Primary Care Provider [phone]- [phone] Tashia Rice MD Primary Care Provider Sindhu Ramirez, Pcp Primary Care Provider Unavailabl e Reason for Visit * Reason Onset Date Comments DME Request 11/26/2015 Encounter Details Date Type Department Care Team Description 11/26/2015 Pt. Non Urgent Medical Question Adult [address] [address] Belén Sibley MD Leg edema, left (Primary [...] . And mail to me Rowena Velasquez [address] [place] [id number] The script should include the following to [...] veins documented in this encounter Care Teams Inspector Penetrant Relationship Specialty Start Date End Date Belén Sibley MD PCP - General Internal Medicine 05/03/11 08/11/20 Trip Tyler DO PCP - General Internal Medicine 08/12/20 1 Ash Mcdowell MD PCP - General Internal Medicine 09/17/20 03/07/21 Marina Mclaughlin MD PCP - General Internal Medicine 03/08/21 06/09/21 Tashia Rice MD PCP - General Internal Medicine 06/10/21 02/09/22 [facility], Pcp PCP - General Internal Medicine 02/10/22 documented as of this encounter
--- OUTSIDE RECORDS SUMMARY | 2024-08-09 07:53 | XMS_ITS | Encounter Summary ---
Author Organization [facility] Address [address] [place] [address] Care Team Providers Care Software Educator Name Role Phone Belén Sibley MD Primary Care Provider Trip Staton DO Primary Care Provider Ash Mcdonald MD Primary Care Provider Unavailab Marina Sparks MD Primary Care Provider [phone]- [phone] Tashia Rice MD Primary Care Provider [facility], Pcp [facility] Encounter Details Date Type Department Care Team Description 08/12/2011 Release of Information Medical Records [address] [place] [phone] Abstract, Provider Social History Tobacco Use Types [...] on filedocumented in this encounter Care Teams Software Educator Relationship Specialty Start Date End Date Belén Sibley MD PCP - General Internal Medicine 05/03/11 08/11/20 Trip Tyler DO PCP - General Internal Medicine 08/12/20 1 Ash Mcdowell MD PCP - General Internal Medicine 09/17/20 03/07/21 Marina Mclaughlin MD PCP - General Internal Medicine 03/08/21 06/09/21 Tashia Rice MD PCP - General Internal Medicine 06/10/21 02/09/22 [facility], Pcp PCP - General Internal Medicine 02/10/22 documented as of this encounter
--- OUTSIDE RECORDS SUMMARY | 2024-08-09 07:53 | XMS_ITS | Encounter Summary ---
Author Organization [facility] Address [address] [place] [address] Care Team Providers Care Cotton Bag Sewer Name Role Phone Belén Sibley MD Primary Care Provider Trip Staton DO Primary Care Provider Ash Mcdonald MD Primary Care Provider Unavailab Marina Sparks MD Primary Care Provider [phone]- [phone] Tashia Rice MD Primary Care Provider [facility], Pcp Primary Care Provider [facility] Encounter Details Date Type Department Care Team Description 10/13/2014 Commercial Coordinator Report Medical Records [address] [place] [id number] Jaz Flores Np Social History Tobacco Use Types Packs/Day Years [...] filedocumented in this encounter Care Teams Cotton Bag Sewer Relationship Specialty Start Date End Date Belén Sibley MD PCP - General Internal Medicine 05/03/11 08/11/20 Trip Tyler DO PCP - General Internal Medicine 08/12/20 1 Ash Mcdowell MD PCP - General Internal Medicine 09/17/20 03/07/21 Marina Mclaughlin MD PCP - General Internal Medicine 03/08/21 06/09/21 Tashia Rice MD PCP - General Internal Medicine 06/10/21 02/09/22 [facility], Pcp PCP - General Internal Medicine 02/10/22 documented as of this encounter
--- OUTSIDE RECORDS SUMMARY | 2024-08-09 07:53 | XMS_ITS | Encounter Summary ---
Author Organization [facility] Address [address] [place] [address] Care Team Providers Care Plaster Helper Name Role Phone Belén Sibley MD Primary Care Provider Trip Staton DO Primary Care Provider Ash Mcdonald MD Primary Care Provider Unavailab Marina Sparks MD Primary Care Provider [phone]- [phone] Tashia Rice MD Primary Care Provider [facility], Pcp Primary Care Provider [facility] e Encounter Details Date Type Department Care Team Description 01/23/2012 Roofing Laborer Report Medical Records [address] [place] [phone] Burak Blandon Social History Tobacco Use Types [...] on filedocumented in this encounter Care Teams Plaster Helper Relationship Specialty Start Date End Date Belén Sibley MD PCP - General Internal Medicine 05/03/11 08/11/20 Trip Tyler DO PCP - General Internal Medicine 08/12/20 1 Ash Mcdowell MD PCP - General Internal Medicine 09/17/20 03/07/21 Marina Mclaughlin MD PCP - General Internal Medicine 03/08/21 06/09/21 Tashia Rice MD PCP - General Internal Medicine 06/10/21 02/09/22 [facility], Pcp PCP - General Internal Medicine 02/10/22 documented as of this encounter
--- OUTSIDE RECORDS SUMMARY | 2024-08-09 07:53 | XMS_ITS | Encounter Summary ---
Author Organization [facility] Address [address] [place] [address] Care Team Providers Care Cost Estimating Clerk Name Role Phone Belén Sibley MD Primary Care Provider Trip Staton DO Primary Care Provider Ash Mcdonald MD Primary Care Provider Unavailab Marina Sparks MD Primary Care Provider [phone]- [phone] Tashia Rice MD Primary Care Provider [facility], Pcp Primary Care Provider [facility] Encounter Details Date Type Department Care Team Description 12/25/2018 [facility] [address] [place] [phone] Md Leticia Social History Tobacco Use Types [...] on filedocumented in this encounter Care Teams Cost Estimating Clerk Relationship Specialty Start Date End Date Belén Sibley MD PCP - General Internal Medicine 05/03/11 08/11/20 Trip Tyler DO PCP - General Internal Medicine 08/12/20 1 Ash Mcdowell MD PCP - General Internal Medicine 09/17/20 03/07/21 Marina Mclaughlin MD PCP - General Internal Medicine 03/08/21 06/09/21 Tashia Rice MD PCP - General Internal Medicine 06/10/21 02/09/22 [facility], Pcp PCP - General Internal Medicine 02/10/22 documented as of this encounter
--- OUTSIDE RECORDS SUMMARY | 2024-08-09 07:53 | XMS_ITS | Encounter Summary ---
Author Organization [facility] Address [address] [place] [address] Care Team Providers Care Nuclear Process Engineer Name Role Phone Belén Sibley MD Primary Care Provider Trip Staton DO Primary Care Provider Ash Mcdonald MD Primary Care Provider Unavailab Marina Sparks MD Primary Care Provider [phone]- [phone] Tashia Rice MD Primary Care Provider [facility], Pcp Primary Care Provider [facility] Encounter Details Date Type Department Care Team Description 02/24/2015 Grill Chef Report Medical Records [address] [place] [phone] Abstract, Provider Social History Tobacco Use Types [...] on filedocumented in this encounter Care Teams Nuclear Process Engineer Relationship Specialty Start Date End Date Belén Sibley MD PCP - General Internal Medicine 05/03/11 08/11/20 Trip Tyler DO PCP - General Internal Medicine 08/12/20 1 Ash Mcdowell MD PCP - General Internal Medicine 09/17/20 03/07/21 Marina Mclaughlin MD PCP - General Internal Medicine 03/08/21 06/09/21 Tashia Rice MD PCP - General Internal Medicine 06/10/21 02/09/22 [facility], Pcp PCP - General Internal Medicine 02/10/22 documented as of this encounter
--- OUTSIDE RECORDS SUMMARY | 2024-08-09 07:53 | XMS_ITS | Encounter Summary ---
Author Organization [facility] Address [address] [place] [address] Care Team Providers Care Bean Sorter Name Role Phone Belén Sibley MD Primary Care Provider Trip Staton DO Primary Care Provider Ash Mcdonald MD Primary Care Provider Unavailab Marina Sparks MD Primary Care Provider [phone]- [phone] Tashia Rice MD Primary Care Provider [facility], Pcp Primary Care Provider [facility] Encounter Details Date Type Department Care Team Description 04/11/2018 Corporate Pilot Report Medical Records [address] [place] [phone] Vladimir Manley MD Social History Tobacco Use [...] on filedocumented in this encounter Care Teams Bean Sorter Relationship Specialty Start Date End Date Belén Sibley MD PCP - General Internal Medicine 05/03/11 08/11/20 Trip Tyler DO PCP - General Internal Medicine 08/12/20 1 Ash Mcdowell MD PCP - General Internal Medicine 09/17/20 03/07/21 Marina Mclaughlin MD PCP - General Internal Medicine 03/08/21 06/09/21 Tashia Rice MD PCP - General Internal Medicine 06/10/21 02/09/22 [facility], Pcp PCP - General Internal Medicine 02/10/22 documented as of this encounter
--- OUTSIDE RECORDS SUMMARY | 2024-08-09 07:53 | XMS_ITS | Encounter Summary ---
Author Organization Formerly [facility] Address [address] [place] [address] Care Team Providers Care Neurological Surgeon Name Role Phone Belén Sibley MD Primary Care Provider Trip Staton DO Primary Care Provider Ash Mcdonald MD Primary Care Provider Unavailab Marina Sparks MD Primary Care Provider [phone]- [phone] Tashia Rice MD Primary Care Provider [facility], Pcp Primary Care Provider [facility] Encounter Details Date Type Department Care Team Description 01/15/2016 Release of Information Medical Records [address] [place] [id number] Abstract, Provider Social History Tobacco Use Types [...] on filedocumented in this encounter Care Teams Neurological Surgeon Relationship Specialty Start Date End Date Belén Sibley MD PCP - General Internal Medicine 05/03/11 08/11/20 Trip Tyler DO PCP - General Internal Medicine 08/12/20 1 Ash Mcdowell MD PCP - General Internal Medicine 09/17/20 03/07/21 Marina Mclaughlin MD PCP - General Internal Medicine 03/08/21 06/09/21 Tashia Rice MD PCP - General Internal Medicine 06/10/21 02/09/22 [facility], Pcp PCP - General Internal Medicine 02/10/22 documented as of this encounter
--- OUTSIDE RECORDS SUMMARY | 2024-08-09 07:53 | XMS_ITS | Encounter Summary ---
Author Organization [facility] Address [address] [place] [address] Care Team Providers Care Refueling Ramp Supervisor Name Role Phone Belén Sibley MD Primary Care Provider Trip Staton DO Primary Care Provider Ash Mcdonald MD Primary Care Provider Unavailab Marina Sparks MD Primary Care Provider [phone]- [phone] Tashia Rice MD Primary Care Provider [facility], Pcp Primary Care [facility] Encounter Details Date Type Department Care Team Description 05/16/2016 Release of Information Medical Records [address] [place] [id number] Abstract, Provider Social History Tobacco Use Types [...] on filedocumented in this encounter Care Teams Refueling Ramp Supervisor Relationship Specialty Start Date End Date Belén Sibley MD PCP - General Internal Medicine 05/03/11 08/11/20 Trip Tyler DO PCP - General Internal Medicine 08/12/20 1 Ash Mcdowell MD PCP - General Internal Medicine 09/17/20 03/07/21 Marina Mclaughlin MD PCP - General Internal Medicine 03/08/21 06/09/21 Tashia Rice MD PCP - General Internal Medicine 06/10/21 02/09/22 [facility], Pcp PCP - General Internal Medicine 02/10/22 documented as of this encounter
--- OUTSIDE RECORDS SUMMARY | 2024-08-09 07:53 | XMS_ITS | Clinical Summary ---
Author Organization [facility] Address [address] [place] [address] Care Team Providers Care Diversified Crops Supervisor Name Role Phone Tashia Rice MD Primary Care Provider [phone] Surgical History Surgery Date Site/Laterality Comments OTHER SURGICAL HISTORY PROCEDURE: ARTHROSCOPY PROCEDURE NEC; COMMENT: knee ENDOMETRIAL ABLATION 05/03/2006 PROCEDURE: MI ENDOMETRIAL ABLTJ THERMAL W/O HYSTEROSCOPIC GUID; COMMENT: Novasure COLONOSCOPY 2001 PROCEDURE: MI COLONOSCOPY FLX DX W/COLLJ SPEC WHEN PFRMD; COMMENT: diverticulosis COLONOSCOPY 01/07/08 PROCEDURE: MI COLONOSCOPY STOMA DX INCLUDING COLLJ SPEC SPX; COMMENT: Up to cecum, mild sigmoid diverticulosis, tortuous sigmoid colon, otherwise normal colon exam OTHER SURGICAL HISTORY 02/2011 PROCEDURE: MI COLECTOMY PARTIAL W/ANASTOMOSIS; COMMENT: diverticulitis TOTAL KNEE ARTHROPLASTY 2017 Bilateral PROCEDURE: MI ARTHRP KNE CONDYLE&PLATU MEDIAL&LAT COMPARTMENTS COLONOSCOPY 08/29/2018 [...] e disorder; COMMENT: Admitted to [facility] status post suicide attempt/Vicodin overdose 01/20/14 Allergic rhinitis 03/18/2005 DX:Allergic rh initis Essential tremor 12/13/2018 DX:Essential tr emor Family History Medical History Relation Name Comments Bipolar disorder Daughter Other: CAD Father PTCA, stents, a t age 72, from [place] at age 74 No Known Problems Maternal Grandfather No Known Problems Maternal Grandmother Other: TIA Mother No Known Problems Other No Known Problems Paternal Grandfather No Known Problems Paternal Grandmother No Known Problems Sister Breast cancer Neg Hx Colon cancer Neg Hx Ovarian cancer Neg Hx Relation Name Status Comments Daughter Father [place] 74yo, lipids ,prostate cancer Maternal Grandfather Maternal [...] Documents on File Type Date Recorded Patient Office Runner Expl anation Health Care Decision (hx) 02/18/2011 AD ADAMS DIRECTIVE Health Care Decision (hx) 02/18/2011 AD ADAMS DIRECTIVE Health Care Decision (hx) 02/18/2011 AD ADAMS DIRECTIVE Health Care Decision (hx) 02/18/2011 AD ADAMS DIRECTIVE Health Care Decision (hx) 02/18/2011 AD ADAMS DIRECTIVE Care Teams Diversified Crops Supervisor Relationship Specialty Start Date End Date Tashia Rice MD [address] [place] [id number] PCP - General Internal Medicine 06/10/21
--- OUTSIDE RECORDS SUMMARY | 2024-08-09 07:53 | XMS_ITS | Encounter Summary ---
Author Organization [facility] Address [address] [place] [address] Care Team Providers Care Online Marketer Name Role Phone Belén Sibley MD Primary Care Provider Trip Staton DO Primary Care Provider Ash Mcdonald MD Primary Care Provider Unavailab Marina Sparks MD Primary Care Provider [phone] Tashia Rice MD Primary Care Provider [facility], Pcp Primary Care Provider [facility] Encounter Details Date Type Department Care Team Description 03/20/2018 Hospital Medical Records [address] [place] [address] Manuel Penaloza MD Social History Tobacco Use Types Packs/Day [...] on filedocumented in this encounter Care Teams Online Marketer Relationship Specialty Start Date End Date Belén Sibley MD PCP - General Internal Medicine 05/03/11 08/11/20 Trip Tyler DO PCP - General Internal Medicine 08/12/20 1 Ash Mcdowell MD PCP - General Internal Medicine 09/17/20 03/07/21 Marina Mclaughlin MD PCP - General Internal Medicine 03/08/21 06/09/21 Tashia Rice MD PCP - General Internal Medicine 06/10/21 02/09/22 [facility], Pcp PCP - General Internal Medicine 02/10/22 documented as of this encounter
--- OUTSIDE RECORDS SUMMARY | 2024-08-09 07:53 | XMS_ITS | Encounter Summary ---
Author Organization [facility] Address [address] [place] [address] Care Team Providers Care Garnisher Name Role Phone Belén Sibley MD Primary Care Provider Trip Staton DO Primary Care Provider Ash Mcdonald MD Primary Care Provider Unavailab Marina Sparks MD Primary Care Provider [phone] Tashia Rice MD [facility] Encounter Details Date Type Department Care Team Description 11/02/2019 Hospital Medical Records [address] [place] [address] Devon Rodriguez PA-C Social History Tobacco Use Types Packs/Day Years [...] on filedocumented in this encounter Care Teams Garnisher Relationship Specialty Start Date End Date Belén Sibley MD PCP - General Internal Medicine 05/03/11 08/11/20 Trip Tyler DO PCP - General Internal Medicine 08/12/20 1 Ash Mcdowell MD PCP - General Internal Medicine 09/17/20 03/07/21 Marina Mclaughlin MD PCP - General Internal Medicine 03/08/21 06/09/21 Tashia Rice MD PCP - General Internal Medicine 06/10/21 02/09/22 [facility], Pcp PCP - General Internal Medicine 02/10/22 documented as of this encounter
--- OUTSIDE RECORDS SUMMARY | 2024-08-09 07:53 | XMS_ITS | Encounter Summary ---
Author Organization [facility] Address [address] [place] [address] Care Team Providers Care Labor Custodian Name Role Phone Belén Sibley MD Primary Care Provider Trip Staton DO Primary Care Provider Ash Mcdonald MD Primary Care Provider Unavailab Marina Sparks MD Primary Care Provider [phone] Tashia Rice MD Primary Care Provider [facility], Pcp Primary Care [facility] Encounter Details Date Type Department Care Team Description 10/04/2018 Senior Ux Designer Report Medical Records [address] [place] [address] Vladimir Manley MD Social History Tobacco Use [...] on filedocumented in this encounter Care Teams Labor Custodian Relationship Specialty Start Date End Date Belén [...]
--- OUTSIDE RECORDS SUMMARY | 2024-08-09 07:53 | XMS_ITS | Encounter Summary ---
Author Organization [facility] Address [address] [place] [address] Care Team Providers Care Manager In Home Name Role Phone Belén Sibley MD Primary Care Provider Trip Staton DO Primary Care Provider Ash Mcdonald MD Primary Care Provider Unavailab Marina Sparks MD Primary Care Provider [phone] Tashia Rice MD Primary Care Provider [facility], Pcp Primary Care Provider [facility] Encounter Details Date Type Department Care Team Description 03/18/2018 Hospital Medical Records [address] [place] [address] Social History Tobacco Use Types Packs/Day Years [...] filedocumented in this encounter Care Teams Manager In Home Relationship Specialty Start Date End Date Belén Sibley MD PCP - General Internal Medicine 05/03/11 08/11/20 Trip Tyler DO PCP - General Internal Medicine 08/12/20 1 Ash Mcdowell MD PCP - General Internal Medicine 09/17/20 03/07/21 Marina Mclaughlin MD PCP - General Internal Medicine 03/08/21 06/09/21 Tashia Rice MD PCP - General Internal Medicine 06/10/21 02/09/22 [facility], Pcp PCP - General Internal Medicine 02/10/22 documented as of this encounter
--- OUTSIDE RECORDS SUMMARY | 2024-08-09 07:53 | XMS_ITS | Encounter Summary ---
Author Organization [facility] Address [address] [place] [address] Care Team Providers Care Fixed Income Trading Vice President Name Role Phone Belén Sibley MD Primary Care Provider Trip Staton DO Primary Care Provider Ash Mcdonald MD Primary Care Provider Unavailab Marina Sparks MD Primary Care Provider [phone] Tashia Rice MD Primary Care Provider [facility], Pcp Primary Care Provider [facility] Encounter Details Date Type Department Care Team Description 09/05/2016 Hospital Medical Records [address] [place] [address] Social History Tobacco Use Types Packs/Day Years [...] on filedocumented in this encounter Care Teams Fixed Income Trading Vice President Relationship Specialty Start Date End Date Belén Sibley MD PCP - General Internal Medicine 05/03/11 08/11/20 Trip Tyler DO PCP - General Internal Medicine 08/12/20 1 Ash Mcdowell MD PCP - General Internal Medicine 09/17/20 03/07/21 Marina Mclaughlin MD PCP - General Internal Medicine 03/08/21 06/09/21 Tashia Rice MD PCP - General Internal Medicine 06/10/21 02/09/22 [facility], Pcp PCP - General Internal Medicine 02/10/22 documented as of this encounter
--- OUTSIDE RECORDS SUMMARY | 2024-08-09 07:53 | XMS_ITS | Encounter Summary ---
Author Organization [facility] Address [address] [place] [address] Care Team Providers Care Mattress Inspector Name Role Phone Belén Sibley MD Primary Care Provider Trip Staton DO Primary Care Provider Ash Mcdonald MD Primary Care Provider Unavailab Marina Sparks MD Primary Care Provider [phone]- [phone] Tashia Rice MD Primary Care Provider [facility], Pcp Primary Care Provider [facility] e Encounter Details Date Type Department Care Team Description 10/19/2017 Deputy Director Of Public Works Report Medical Records [address] [place] [address] Vladimir Manley MD Social History Tobacco Use [...] on filedocumented in this encounter Care Teams Mattress Inspector Relationship Specialty Start Date End Date Belén [...]
--- OUTSIDE RECORDS SUMMARY | 2024-08-09 07:53 | XMS_ITS | Encounter Summary ---
Author Organization [facility] Address [address] [place] [address] Care Team Providers Care Poke In Name Role Phone Belén Sibley MD Primary Care Provider Trip Staton DO Primary Care Provider Janell Ash Pastrana MD Primary Care Provider Unavailab Marina Sparks MD Primary Care Provider [phone]- [phone] Tashia Rice MD Primary Care Provider Unavai [facility], Pcp Primary Care Provider Unavailabl e Reason for Visit * Reason Onset Date Comments radiology 04/24/2014 mri testing. Encounter Details Date Type Department Care Team Description 04/24/2014 Telephone Adult Medicine [address] [address] Quang Cooper MD [address] [place] [address] radiology (mri testing.) Social History Tobacco Use Types Packs/Day Years [...] encounter Miscellaneous Notes * Telephone Encounter - Manuel Long - 04/24/2014 9:08 AM EST Rowena Velasquez refused to book the mri of the right knee you requested for her; therefore we are removing the test from our Scheduled Orders Report.Please note that this test must be reordered if required in the future. Manuel, MRI Department. documented in this encounter Plan of Treatment Not on file documented as of this encounter Visit Diagnoses Not on filedocumented in this encounter Care Teams Poke In Relationship Specialty Start Date End Date Belén [...]
--- OUTSIDE RECORDS SUMMARY | 2024-08-09 07:53 | XMS_ITS | Encounter Summary ---
Author Organization [facility] Address [address] [place] [address] Care Team Providers Care Ornamental Ironworker Helper Name Role Phone Belén Sibley MD Primary Care Provider Trip Staton DO Primary Care Provider Ash Mcdonald MD Primary Care Provider Unavailab Marina Sparks MD Primary Care Provider [phone]- [phone] Tashia Rice MD Primary Care Provider [facility], Pcp Primary Care Provider [facility] Encounter Details Date Type Department Care Team Description 09/02/2015 Acid Tank Cleaner Report Medical Records [address] [place] [address] Social History Tobacco Use Types Packs/Day Years [...] on filedocumented in this encounter Care Teams Ornamental Ironworker Helper Relationship Specialty Start Date End Date Belén Sibley MD PCP - General Internal Medicine 05/03/11 08/11/20 Trip Tyler DO PCP - General Internal Medicine 08/12/20 1 Ash Mcdowell MD PCP - General Internal Medicine 09/17/20 03/07/21 Marina Mclaughlin MD PCP - General Internal Medicine 03/08/21 06/09/21 Tashia Rice MD PCP - General Internal Medicine 06/10/21 02/09/22 [facility], Pcp PCP - General Internal Medicine 02/10/22 documented as of this encounter
--- OUTSIDE RECORDS SUMMARY | 2024-08-09 07:53 | XMS_ITS | Encounter Summary ---
Author Organization [facility] Address [address] [place] [address] Care Team Providers Care Supervisor Smoke Control Name Role Phone Marina Mclaughlin MD Primary Care Provider [phone] Tashia Rice MD Primary Care Provider [facility], Pcp Primary Care Provider [facility] Reason for Visit * Reason Onset Date Comments Painter Supervisor Feedback 03/08/2021 MIGUEL ROSAS Encounter Details Date Type Department Care Team Description 03/08/2021 Telephone Internal Medicine - [address], [address] [place] [address] Marina Mclaughlin MD [address] [place] [phone] Painter Supervisor Feedback (MIGUEL ROSAS) Social History Tobacco Use [...] Yolande Ramirez - 03/09/2021 12:50 PM EST [facility] HCS Review Request Submission Status[ Save Response to Batch ] Request: [id number] [id number] [facility] Trace #: [id number] Subscriber: CORTNEY DOMINIQUE : [id number] Submitter : MARINA MCLAUGHLIN Submitter Type: Provider Referral (#[id number]) Specialty Care Review Type: Initial Certification Status : Certified in total Service Type : Medical Care Place Of Service : Office Visits : 6 Service Date : 03/02/2021-03/02/2022 Service Providers Provider Name ID Provider Type MIGUEL ROSAS NPI : [id number] Service Provider * Telephone Encounter - Kim Mittal - 03/08/2021 1:36 PM EST What insurance does the patient have today? [facility] Effective 12/25/08: BCBS will not retro [...] insurance must be obtained and registered in [facility] or their referral can not be processed. Is this a retro request? YES. If yes for what date of service do you need the retro referral? 03/02/21 Who is calling to request this referral? OFFICE If the caller is not the patient, what is their name? [facility] Ask the patient WHO referred them [...] YES Is this visit:Initial Visit Address of Specialist:[address] [place] [address] Phone # of Specialist: Fax #: (if applicable):[phone] Does patient have an appointment scheduled?: YES Date of appointment- (including a retro-request): 03/02/21 Is this appointment related to: Surgery documented in this encounter Plan of Treatment Not on file documented as of this encounter Visit Diagnoses Not on filedocumented in this encounter Care Teams Supervisor Smoke Control Relationship Specialty Start Date End Date Marina Mclaughlin MD PCP - General Internal Medicine 03/08/21 06/09/21 Tashia Rice MD PCP - General Internal Medicine 06/10/21 02/09/22 [facility], Pcp PCP - General Internal Medicine 02/10/22 documented as of this encounter
--- OUTSIDE RECORDS SUMMARY | 2024-08-09 07:53 | XMS_ITS | Encounter Summary ---
Author Organization [facility] Address [address] [place] [address] Care Team Providers Care Attending Radiologist Name Role Phone Ash Mcdowell MD Primary Care Provider Unavailab Marina Sparks MD Primary Care Provider [phone] Tashia Rice MD Primary Care Provider Sindhu lou [facility], Pcp Primary Care Provider [facility] e Encounter Details Date Type Department Care Team Description 11/26/2020 [facility] Medical Records [address] [place] [address] Justen Acevedo MD Social History Tobacco Use Types Packs/Day [...] on filedocumented in this encounter Care Teams Attending Radiologist Relationship Specialty Start Date End Date Ash Mcdowell MD PCP - General Internal Medicine 09/17/20 03/07/21 Marina Mclaughlin MD PCP - General Internal Medicine 03/08/21 06/09/21 Tashia Rice MD PCP - General Internal Medicine 06/10/21 02/09/22 [facility], Pcp PCP - General Internal Medicine 02/10/22 documented as of this encounter
--- OUTSIDE RECORDS SUMMARY | 2024-08-09 07:53 | XMS_ITS | Encounter Summary ---
Author Organization [facility] Address [address] [place] [address] Care Team Providers Care Flow Manager Name Role Phone Johana Shelby MD Primary Care Provider [phone] Devan Lepe MD Primary Care Provider Unav ailBelén Stallworth MD Primary Care Provider Unava ilTrip Calvert DO Primary Care Provider Janell Ash Pastrana MD Primary Care Provider Unavailab Marina Sparks MD Primary Care Provider [phone] Tashia Rice MD [facility] Primary Care Provider Unavailabl e Encounter Details Date Type Department Care Team Description 06/14/2005 [facility] Medical Records [address] [place] [address] Abstract, Provider Social History Tobacco Use Types [...] on filedocumented in this encounter Care Teams Flow Manager Relationship Specialty Start Date End Date Johana Shelby MD [address] [place] [id number] PCP - General 10/20/05 05/02/11 Devan Lepe [...]
--- OUTSIDE RECORDS SUMMARY | 2024-08-09 07:53 | XMS_ITS | Encounter Summary ---
Author Organization [facility] Address [address] [place] [address] Care Team Providers Care Migratory Farm Hand Name Role Phone Belén Sibley MD Primary Care Provider Trip Staotn DO Primary Care Provider Ash Mcdonald MD Primary Care Provider Unavailab Marina Sparks MD Primary Care Provider [phone] Tashia Rice MD Primary Care Provider [facility], Pcp Primary Care Provider [facility] e Encounter Details Date Type Department Care Team Description 01/22/2014 Television Program Director Report Medical Records [address] [place] [address] Mansi Lopez PA Social History Tobacco Use Types Packs/Day Years [...] on filedocumented in this encounter Care Teams Migratory Farm Hand Relationship Specialty Start Date End Date Belén Sibley MD PCP - General Internal Medicine 05/03/11 08/11/20 Trip Tyler DO PCP - General Internal Medicine 08/12/20 1 Ash Mcdowell MD PCP - General Internal Medicine 09/17/20 03/07/21 Marina Mclaughlin MD PCP - General Internal Medicine 03/08/21 06/09/21 Tashia Rice MD PCP - General Internal Medicine 06/10/21 02/09/22 [facility], Pcp PCP - General Internal Medicine 02/10/22 documented as of this encounter
--- OUTSIDE RECORDS SUMMARY | 2024-08-09 07:53 | XMS_ITS | Encounter Summary ---
Author Organization [facility] Address [facility] [place] [address] Care Team Providers Care Security System Technician Name Role Phone Belén Sibley MD Primary Care Provider Trip Staton DO Primary Care Provider Janell Ash Pastrana MD Primary Care Provider Unavailab Marina Sparks MD Primary Care Provider [phone]- [phone] Tashia Rice MD Primary Care Provider [facility], Pcp Primary Care Provider [facility] e Encounter Details Date Type Department Care Team Description 11/29/2015 Orders Only Adult Medicine [address] [address] Teresa Betancourt MD Social History Tobacco Use [...] on filedocumented in this encounter Care Teams Security System Technician Relationship Specialty Start Date End Date [...]
--- OUTSIDE RECORDS SUMMARY | 2024-08-09 07:53 | XMS_ITS | Encounter Summary ---
Author Organization [facility] Address [address] [place] [address] Care Team Providers Care Warehouse Forklift Operator Name Role Phone Belén Sibley MD Primary Care Provider Trip Staton DO Primary Care Provider Janell Ash Pastrana MD Primary Care Provider Unavailab Marina Sparks MD Primary Care Provider [phone] Tashia Rice MD [facility] Primary Care Provider Unavailabl e Encounter Details Date Type Department Care Team Description 01/23/2014 Hospital Medical Records [address] [place] [address] Josie Calderón NP [address] [address] Social History Tobacco Use Types Packs/Day Years [...] on filedocumented in this encounter Care Teams Warehouse Forklift Operator Relationship Specialty Start Date End Date Belén Sibley MD PCP - General Internal Medicine 05/03/11 08/11/20 Trip Tyler DO PCP - General Internal Medicine 08/12/20 1 Ash Mcdowell MD PCP - General Internal Medicine 09/17/20 03/07/21 Marina Mclaughlin MD PCP - General Internal Medicine 03/08/21 06/09/21 Tashia Rice MD PCP - General Internal Medicine 06/10/21 02/09/22 [facility], Pcp PCP - General Internal Medicine 02/10/22 documented as of this encounter
--- OUTSIDE RECORDS SUMMARY | 2024-08-09 07:53 | XMS_ITS | Encounter Summary ---
Author Organization [facility] Address [address] [place] [address] Care Team Providers Care Gas Welder Apprentice Name Role Phone Belén Sibley MD Primary Care Provider Trip Staton DO Primary Care Provider Ash Mcdonald MD Primary Care Provider Unavailab Marina Sparks MD Primary Care Provider [phone] Tashia Rice MD Primary Care Provider [facility], Pcp Primary Care Provider [facility] Encounter Details Date Type Department Care Team Description 01/28/2014 Hospital Medical Records [address] [place] [address] Cielo Dumont Social History Tobacco Use Types Packs/Day Years [...] filedocumented in this encounter Care Teams Gas Welder Apprentice Relationship Specialty Start Date End Date Belén [...]
--- OUTSIDE RECORDS SUMMARY | 2024-08-09 07:53 | XMS_ITS | Encounter Summary ---
Author Organization [facility] Address [address] [place] [address] Care Team Providers Care Oil Well Services Dispatcher Name Role Phone Belén Sibley MD Primary Care Provider Trip Staton DO Primary Care Provider Ash Mcdonald MD Primary Care Provider Unavailab Marina Sparks MD Primary Care Provider [phone]- [phone] Tashia Rice MD Primary Care Provider [facility], Pcp Primary Care Provider [facility] Encounter Details Date Type Department Care Team Description 01/22/2013 Supervisor Fish Bait Processing Report Medical Records [address] [place] [id number] Devon Traore MD Social History Tobacco Use [...] on filedocumented in this encounter Care Teams Oil Well Services Dispatcher Relationship Specialty Start Date End Date Belén Sibley MD PCP - General Internal Medicine 05/03/11 08/11/20 Trip Tyler DO PCP - General Internal Medicine 08/12/20 1 Ash Mcdowell MD PCP - General Internal Medicine 09/17/20 03/07/21 Marina Mclaughlin MD PCP - General Internal Medicine 03/08/21 06/09/21 Tashia Rice MD PCP - General Internal Medicine 06/10/21 02/09/22 Count Includes [facility], Pcp PCP - General Internal Medicine 02/10/22 documented as of this encounter
--- OUTSIDE RECORDS SUMMARY | 2024-08-09 07:53 | XMS_ITS | Encounter Summary ---
Author Organization [facility] Address [address] [place] [address] Care Team Providers Care Curriculum Director Name Role Phone Belén Sibley MD Primary Care Provider Trip Staton DO Primary Care Provider Ash Mcdonald MD Primary Care Provider Unavailab Marina Sparks MD Primary Care Provider [phone]- [phone] Tashia Rice MD Primary Care Provider Janellvtjosué [facility], Pcp Primary Care Provider Unavailabl e Reason for Visit * Reason Onset Date Comments E-prescribe Rx Request 01/03/2019 Encounter Details Date Type Department Care Team Description 01/03/[address] [address] Md Leticia E-prescribe Rx Request Social History [...] Not On Medication List Request submitted by Rowena Velasquez on 01/03/2019 at 11:14:43 AM Form Title: Request Refill Not On Medication List Submitted Data From: Rowena Velasquez Primary care provider: Belén Sibley MD --- Contact Information --- Contact Phone #: [phone] --- Medication Request Information --- Medication name: Docusate sodium softgel Dosage: 100mg instructions: Take 1 capsule daily # Dispensed: 90 days Ordering Provider: [facility] Other Details: Please fill Naproxen 500mg,1 tab QD documented in this encounter Plan of Treatment Not on file documented as of this encounter Visit Diagnoses Not on filedocumented in this encounter Care Teams Curriculum Director Relationship Specialty Start Date End Date Belén [...]
--- OUTSIDE RECORDS SUMMARY | 2024-08-09 07:53 | XMS_ITS | Encounter Summary ---
Author Organization [facility] Address [address] [place] [address] Care Team Providers Care Concrete Pump Operator Helper Name Role Phone Belén Sibley MD Primary Care Provider Trip Staton DO Primary Care Provider Ash Mcdonald MD Primary Care Provider Unavailab Marina Sparks MD Primary Care Provider [phone]- [phone] Tashia Rice MD Primary Care Provider [facility], [facility] Encounter Details Date Type Department Care Team Description 08/03/2016 Machine Spreader Report Medical Records [address] [place] [id number] Dejah Carlson FNP Social History Tobacco Use [...] on filedocumented in this encounter Care Teams Concrete Pump Operator Helper Relationship Specialty Start Date End Date Belén Sibley MD PCP - General Internal Medicine 05/03/11 08/11/20 rTip Tyler DO PCP - General Internal Medicine 08/12/20 1 Ash Mcdowell MD PCP - General Internal Medicine 09/17/20 03/07/21 Marina Mclaughlin MD PCP - General Internal Medicine 03/08/21 06/09/21 Tashia Rice MD PCP - General Internal Medicine 06/10/21 02/09/22 [facility], Pcp PCP - General Internal Medicine 02/10/22 documented as of this encounter
--- OUTSIDE RECORDS SUMMARY | 2024-08-09 07:53 | XMS_ITS | Encounter Summary ---
Author Organization [facility] Address [address] [place] [address] Care Team Providers Care Toolmaker Helper Name Role Phone Belén Sibley MD Primary Care Provider Trip Staton DO Primary Care Provider Ash Mcdonald MD Primary Care Provider UnavailMarina Edwrads MD Primary Care Provider [phone]- [phone] Tashia Rice MD Primary Care Provider Sindhu Ramirez, Pcp Primary Care Provider Elenitaabl e Encounter Details Date Type Department Care Team Description 04/04/2014 SCAN Medical Records [address] [place] [address] Abstract, Provider Social History Tobacco Use Types [...] on filedocumented in this encounter Care Teams Toolmaker Helper Relationship Specialty Start Date End Date Belén Sibley MD PCP - General Internal Medicine 05/03/11 08/11/20 Trip Tyler DO PCP - General Internal Medicine 08/12/20 1 Ash Mcdowell MD PCP - General Internal Medicine 09/17/20 03/07/21 Marina Mclaughlin MD PCP - General Internal Medicine 03/08/21 06/09/21 Tashia Rice MD PCP - General Internal Medicine 06/10/21 02/09/22 [facility], Pcp PCP - General Internal Medicine 02/10/22 documented as of this encounter
--- OUTSIDE RECORDS SUMMARY | 2024-08-09 07:53 | XMS_ITS | Encounter Summary ---
Author Organization [facility] Address [address] [place] [address] Care Team Providers Care Jewelry Racker Name Role Phone Ash Mcdowell MD Primary Care Provider Unavailab Marina Sparks MD Primary Care Provider [phone]- [phone] Tashia Rice MD Primary Care Provider Sindhu lou [facility], Pcp Primary Care Provider [facility] e Encounter Details Date Type Department Care Team Description 11/25/2020 Hospital Medical Records [address] [place] [address] Burak Long Social History Tobacco Use Types Packs/Day Years [...] on filedocumented in this encounter Care Teams Jewelry Racker Relationship Specialty Start Date End Date Ash Mcdowell MD PCP - General Internal Medicine 09/17/20 03/07/21 Marina Mclaughlin MD PCP - General Internal Medicine 03/08/21 06/09/21 Tashia Rice MD PCP - General Internal Medicine 06/10/21 02/09/22 [facility], Pcp PCP - General Internal Medicine 02/10/22 documented as of this encounter
--- OUTSIDE RECORDS SUMMARY | 2024-08-09 07:53 | XMS_ITS | Encounter Summary ---
Author Organization [facility] Address [address] [place] [address] Care Team Providers Care Antique Repairer Name Role Phone Belén Sibley MD Primary Care Provider Trip Staton DO Primary Care Provider Ash Mcdonald MD Primary Care Provider Unavailab Marina Sparks MD Primary Care Provider [phone]- [phone] Tashia Rice MD Primary Care Provider [facility], Pcp Primary Care Provider [facility] Encounter Details Date Type Department Care Team Description 02/17/2014 Kiln Tender Report Medical Records [address] [place] [id number] Abstract, Provider Social History Tobacco Use Types [...] on filedocumented in this encounter Care Teams Antique Repairer Relationship Specialty Start Date End Date Belén Sibley MD PCP - General Internal Medicine 05/03/11 08/11/20 Trip Tyler DO PCP - General Internal Medicine 08/12/20 1 sAh Mcdowell MD PCP - General Internal Medicine 09/17/20 03/07/21 Marina Mclaughlin MD PCP - General Internal Medicine 03/08/21 06/09/21 Tashia Rice MD PCP - General Internal Medicine 06/10/21 02/09/22 [facility], Pcp PCP - General Internal Medicine 02/10/22 documented as of this encounter
--- OUTSIDE RECORDS SUMMARY | 2024-08-09 07:53 | XMS_ITS | Encounter Summary ---
Author Organization [facility] Address [address] [place] [address] Care Team Providers Care Sales Representative Advertising Name Role Phone Belén Sibley MD Primary Care Provider Trip Staton DO Primary Care Provider Ash Mcdonald MD Primary Care Provider Unavailab Marina Sparks MD Primary Care Provider [phone]- [phone] Tashia Rice MD Primary Care Provider [facility], Pcp [facility] Encounter Details Date Type Department Care Team Description 07/29/2014 Release of Information Medical Records [address] [place] [id number] Abstract, Provider Social History Tobacco Use Types [...] on filedocumented in this encounter Care Teams Sales Representative Advertising Relationship Specialty Start Date End Date Bleén Sibley MD PCP - General Internal Medicine 05/03/11 08/11/20 Trip Tyler DO PCP - General Internal Medicine 08/12/20 1 Ash Mcdowell MD PCP - General Internal Medicine 09/17/20 03/07/21 Marina Mclaughlin MD PCP - General Internal Medicine 03/08/21 06/09/21 Tashia Rice MD PCP - General Internal Medicine 06/10/21 02/09/22 [facility], Pcp PCP - General Internal Medicine 02/10/22 documented as of this encounter
--- OUTSIDE RECORDS SUMMARY | 2024-08-09 07:53 | XMS_ITS | Encounter Summary ---
Author Organization [facility] Address [address] [place] [address] Care Team Providers Care Pool Manager Name Role Phone Belén Sibley MD Primary Care Provider Trip Staton DO Primary Care Provider Ash Mcdonald MD Primary Care Provider Unavailab Marina Sparks MD Primary Care Provider [phone] Tashia Rice MD Primary Care Provider [facility], Pcp Primary Care [facility] Encounter Details Date Type Department Care Team Description 06/30/2014 Hospital Medical Records [address] [place] [address] Social History Tobacco Use Types Packs/Day Years [...] on filedocumented in this encounter Care Teams Pool Manager Relationship Specialty Start Date End Date Belén Sibley MD PCP - General Internal Medicine 05/03/11 08/11/20 Trip Tyler DO PCP - General Internal Medicine 08/12/20 1 Ash Mcdowell MD PCP - General Internal Medicine 09/17/20 03/07/21 Marina Mclaughlin MD PCP - General Internal Medicine 03/08/21 06/09/21 Tashia Rice MD PCP - General Internal Medicine 06/10/21 02/09/22 [facility], Pcp PCP - General Internal Medicine 02/10/22 documented as of this encounter
--- OUTSIDE RECORDS SUMMARY | 2024-08-09 07:53 | XMS_ITS | Encounter Summary ---
Author Organization [facility] Address [address] [place] [address] Care Team Providers Care Orthopaedic General Name Role Phone Belén Sibley MD Primary Care Provider Trip Staton DO Primary Care Provider Ash Mcdonald MD Primary Care Provider Unavailab Marina Sparks MD Primary Care Provider [phone]- [phone] Tashia Rice MD [facility] Encounter Details Date Type Department Care Team Description 01/22/2014 Hospital Medical Records [address] [place] [address] Mansi Lopez PA Social History Tobacco Use [...] on filedocumented in this encounter Care Teams Orthopaedic General Relationship Specialty Start Date End Date Belén [...]
--- OUTSIDE RECORDS SUMMARY | 2024-08-09 07:53 | XMS_ITS | Encounter Summary ---
Author Organization [facility] Address [address] [place] [address] Care Team Providers Care Manufacturing Team Leader Name Role Phone Belén Sibley MD Primary Care Provider Trip Staton DO Primary Care Provider Ash Mcdonald MD Primary Care Provider Unavailab Marina Sparks MD Primary Care Provider [phone]- [phone] Tashia Rice MD [facility] Primary Care Provider [facility] e Encounter Details Date Type Department Care Team Description 02/15/2014 Hospital Medical Records [address] [place] [address] Anne-Marie Trinidad DO Social History Tobacco Use [...] on filedocumented in this encounter Care Teams Manufacturing Team Leader Relationship Specialty Start Date End Date Belén [...]
--- OUTSIDE RECORDS SUMMARY | 2024-08-09 07:53 | XMS_ITS | Clinical Summary ---
Author Organization [facility] Address [address] [place] [address] Care Team Providers Care Core Piler Name Role Phone [facility], Pcp Primary Care [...] a pelvic US to further evaluate for Watch Assembly Inspector pathology. Midline cystocele 08/19/2022 Last Assessment & [...] (paroxysmal atrial fibrillation) Overview: Converted with beta francicso and flecainide. Another episode of A. fib with RVR on 01/22/14 while in [facility], converted after being given Cardizem. Another episode in [facility] - d/c on Toprol XL BID, [...] 03/29/2011 Depression 03/18/2005 06/23/2015 Overview: Admitted to [facility] status post suicide attempt/Vicodin overdose 01/20/14 Immunizations [...] of not completing the topic Care Teams Core Piler Relationship Specialty Start Date End Date Community, Pcp PCP - General Internal Medicine 02/10/22
--- OUTSIDE RECORDS SUMMARY | 2024-08-09 07:53 | XMS_ITS | Encounter Summary ---
Author Organization [facility] Address [address] [place] [address] Care Team Providers Care Drop Worker Name Role Phone Belén Sibley MD Primary Care Provider Trip Staton DO Primary Care Provider Ash Mcdonald MD Primary Care Provider Unavailab Marina Sparks MD Primary Care Provider [phone] Tashia Rice MD Primary Care Provider [facility], Pcp Primary Care Provider Unavailformerly [facility] e Encounter Details Date Type Department Care Team Description 03/18/2014 Hospital Medical Records [address] [place] [address] Social History Tobacco Use Types Packs/Day Years [...] on filedocumented in this encounter Care Teams Drop Worker Relationship Specialty Start Date End Date Belén Sibley MD PCP - General Internal Medicine 05/03/11 08/11/20 Trip Tyler DO PCP - General Internal Medicine 08/12/20 1 Ash Mcdowell MD PCP - General Internal Medicine 09/17/20 03/07/21 Marina Mclaughlin MD PCP - General Internal Medicine 03/08/21 06/09/21 Tashia Rice MD PCP - General Internal Medicine 06/10/21 02/09/22 [facility], Pcp PCP - General Internal Medicine 02/10/22 documented as of this encounter
--- OUTSIDE RECORDS SUMMARY | 2024-08-09 07:53 | XMS_ITS | Encounter Summary ---
Author Organization [facility] Address [address] [place] [address] Care Team Providers Care Windows Admin Name Role Phone Belén Sibley MD Primary Care Provider Trip Staton DO Primary Care Provider Janell Ash Pastrana MD Primary Care Provider Unavailab Marina Sparks MD Primary Care Provider [phone]- [phone] Tashia Rice MD [facility] Primary Care Provider Unavailabl e Encounter Details Date Type Department Care Team Description 01/23/2014 Hospital Medical Records [address] [place] [address] Jeyson Hernandez MD [address] [place] [address] Social History Tobacco Use Types Packs/Day Years [...] on filedocumented in this encounter Care Teams Windows Admin Relationship Specialty Start Date End Date Belén Sibley MD PCP - General Internal Medicine 05/03/11 08/11/20 Trip Tyler DO PCP - General Internal Medicine 08/12/20 1 Ash Mcdowell MD PCP - General Internal Medicine 09/17/20 03/07/21 Marina Mclaughlin MD PCP - General Internal Medicine 03/08/21 06/09/21 Tashia Rice MD PCP - General Internal Medicine 06/10/21 02/09/22 [facility], Pcp PCP - General Internal Medicine 02/10/22 documented as of this encounter
--- OUTSIDE RECORDS SUMMARY | 2024-08-09 07:53 | XMS_ITS | Encounter Summary ---
Author Organization [facility] Address [address] [place] [address] Care Team Providers Care Seasonal Retail Merchandiser Name Role Phone Belén Sibley MD Primary Care Provider Trip Staton DO Primary Care Provider Ash Mcdonald MD Primary Care Provider Unavailab Marina Sparks MD Primary Care Provider [phone]- [phone] Tashia Rice MD Primary Care Provider [facility], Pcp Primary Care Provider Unavailformerly [facility] e Encounter Details Date Type Department Care Team Description 01/06/2012 Coffee Farmer Report Medical Records [address] [place] [address] Burak Blandon Social History Tobacco Use Types [...] on filedocumented in this encounter Care Teams Seasonal Retail Merchandiser Relationship Specialty Start Date End Date Belén [...]
--- OUTSIDE RECORDS SUMMARY | 2024-08-09 07:53 | XMS_ITS | Encounter Summary ---
Author Organization [facility] Address [address] [place] [address] Care Team Providers Care Aircraft Layout Worker Name Role Phone Johana Shelby MD Primary Care Provider [phone] Belén Sibley MD Primary Care Provider UnaTrip Bolaños DO Primary Care Provider Janell Ash Pastrana MD Primary Care Provider Unavailab Marina Sparks MD Primary Care Provider [phone]- [phone] Tashia Rice MD Primary Care Provider Janellkyjosué [facility] Pcp Primary Care Provider Unavailabl e Encounter Details Date Type Department Care Team Description 11/20/2007 [facility] Medical Records [address] [place] [address] Jenaro Anguiano MD Social History Tobacco Use Types Packs/Day [...] on filedocumented in this encounter Care Teams Aircraft Layout Worker Relationship Specialty Start Date End Date Johana Shelby MD [address] [place] [id number] PCP - General 10/20/05 05/02/11 Belén Sibley MD [address] [place] [id number] PCP - General Internal Medicine 05/03/11 08/11/20 Trip Tyler DO [address] [place] [id number] PCP - General Internal Medicine 08/12/20 09/16/20 Ash Mcdowell MD [address] [place], [place] [id number] PCP - General Internal Medicine 09/17/20 03/07/21 Marina Mclaughlin MD [address] [place] [address] PCP - General Internal Medicine 03/08/21 06/09/21 Tashia Rice MD [address] [place] [id number] PCP - General Internal Medicine 06/10/21 02/09/22 [facility], Pcp [address] [place] [address] PCP - General Internal Medicine 02/10/22 documented as of this encounter
--- NOTE | 2024-08-09 08:07 | A.OFFVIS_ITS ---
Vital Signs 08/09/24 08:12 Height 5 ft 8 in Weight 210 lb BMI 31.9 BP 148/72 H Blood Pressure Location Rt brachial Position Sitting Pulse 64 Pulse Source Pulse Oximeter Pulse Oximetry (%) 94 Oxygen Delivery Method Room Air Intake Visit Reasons: Colonoscopy Consult. Intake Note: ESTABLISHED PATIENT for mgmt of CIC + GERD. YOSEF 2021. CC; C.O. GERD and constipation chronic presentation. Pt reports GERD has been worse recently. No recent tx. Pt also reports intermittent, chronic constipation which has mixed response to current therapies. Last colo >10 years ago via [facility]. Woodenware Assembler Required: No Accompanied by: Self / Same As Patient Allergies oxycodone [From PERCODAN] Allergy (Intermediate, Verified 08/09/24 08:07) HIVES rosuvastatin [From Crestor] Adverse Reaction (Intermediate, Verified 08/09/24 08:07) body aches Hydrocodone-Acetaminophen Adverse Reaction (Unknown, Uncoded 08/09/24 08:07) nausea and vomiting HPI HPI Colonoscopy Consult.: Details: LAST VISIT 03/22/2022 Elevated LFTs Will repeat liver enzymes today. Patient stopped taking atorvastatin about month and a half ago. However patient continues to have hypercholesteremia. LDL high. Patient is waiting to go for coronary CTA to rule out CAD Chronic idiopathic constipation Continue MiraLax and Colace. Patient will call if this not going to be effect [place]. I will see patient after the procedure, sooner on as needed basis. Patient is agreeable to this plan and verbalizes understanding of instructions. She was given the opportunity to ask questions and all questions answered. ? Thank you for allowing me to participate in her care Plan Orders Orders Liver Panel Today R10.9 TODAY'S VISIT Patient is here today for follow-up and to discuss going for colonoscopy again. Patient was last seen in February of 2022 and was supposed to go for colonoscopy after being cleared from Cardiology. However patient reports that she had to go for coronary CTA which was negative for CAD. Patient also reports that she developed AFib and had to go for ablation. Ablation a year ago, currently on Eliquis. Patient is wearing loop monitor. Appointment with Cardiology in December. Patient denies any cardiac or respiratory symptoms. Reports to be feeling well. Patient reports occasional constipation. Patient denies melena, hematochezia, unintentional weight loss or ribbon like stools. Denies any family history of CRC. No history of sleep apnea. 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, 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, 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 Are you a primary field care advocate to a significant other at home: Yes Do you presently have visiting nurse or other home services: No Alcohol intake: current Alcohol intake frequency: a few times a week Alcohol type: wine Patient Tobacco Use Status: Never used Tobacco e-Cigarette/Vaping Use: Never Used Advance Directives Date on File: 05/24/23 service: No Current occupational status: retired 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 Current occupational exposures/hazards: No Cognitive needs: No Hearing needs: No Vision needs: Yes Review of Systems Const Denies weight gain and Denies weight loss ENT Reports no additional complaints, Denies dysphagia and Denies odynophagia Card Reports no additional complaints Resp Reports no additional complaints GI Denies abdominal pain, Denies belching, Denies melena, Denies bloating, Denies change in bowel habits, Reports constipation (Occasional), Denies dysphagia, Denies excessive flatus, Denies dyspepsia, Denies heartburn, Denies diarrhea, Denies loose stools, Denies nausea, Denies odynophagia and Denies vomiting Reports no additional complaints Musc Reports no additional complaints Neuro Reports no additional complaints Psych Reports no additional complaints Endo Reports no additional complaints Physical Exam Vital Signs: Last Vital Signs Pulse 64 08/09/24 08:12 BP 148/72 H 08/09/24 08:12 Pulse Ox 94 08/09/24 08:12 Oxygen Delivery Method Room Air 08/09/24 08:12 BMI result Body Mass Index 31.9 Const General: healthy appearing, no acute distress and well developed Nutritional Appearance: well nourished Orientation/consciousness: patient oriented x3 Resp Effort & Inspection: normal respiratory effort, able to speak in complete sentences, no tracheal deviation and symmetric chest movement Auscultation: clear to auscultation bilaterally Cardio Rate: regular rate GI Inspection: Yes normal to inspection and No distended Palpation (GI): Soft to palpation, not firm, nontender and No hepatosplenomegaly present Auscultation: normal bowel sounds General: Yes no CVA tenderness Back/Spine/Pelvis Back: no CVA tenderness Skin General skin exam: elasticity normal, turgor normal and dry skin Neuro General: patient oriented x3 Psych Appearance: grossly normal Mental Status: mental status grossly normal Assessment & Plan Assessment & Plan (1) Screen for colon cancer: Code(s): Z12.11 - Encounter for screening for malignant neoplasm of colon (2) Constipation: Code(s): K59.00 - Constipation, unspecified Qualifiers: Constipation type: slow transit constipation Qualified Code(s): K59.01 - Slow transit constipation Plan Message sent to surgical schedulers to book procedure for patient. RN to call programmer's office to have patient cleared. Patient is wearing loop monitor. Next appointment with Cardiology is in December. What to expect before during and after procedure discussed with patient. Stressed the importance of good bowel prep and clear liquid diet day before procedure. Patient is having occasional constipation. Patient will start Dulcolax few days before procedure to make sure that she has a good prep. Patient will be seen after the procedure, sooner on as needed basis. She is agreeable to this plan and verbalizes understanding of instructions. She was given the opportunity to ask questions and all questions answered. Thank you for allowing me to participate in her care Medications: New bisacodyl (Dulcolax (bisacodyl)) 10 mg (2 x 5 mg) PO BEDTIME 180 tabs 4RF polyethylene glycol 3350 (Miralax) As directed by gastroenterology department at [facility] 238 grams PO ONCE 238 grams 0RF Z12.11 - Encounter for screening for malignant neoplasm of colon Coding Level of Care Code Est Pt Level 3 (00106) Diagnoses Screen for colon cancer Z12.11 Slow transit constipation K59.01 Constipation type: slow transit constipation Time Spent (min) 35 Comment 25 minutes spent with patient and additional 10 minutes spent reviewing her records
[2024-08-09 08:12] VITALS: BP 148/72; PULSE 64; O2SAT 94; BMI 31.9
== END 2024-08-09 08:29 | disposition home or self-care (01) ==
LOC: HO.HGI 07:50
PROVIDERS: PCP Internal Medicine; Visit Provider Nurse Practitioner Family
DX: K59.01 Slow transit constipation (principal)
CPT/HCPCS: 99213

== ENCOUNTER → 2024-08-09 07:49 | Outpatient (BNVA) | payer MEDICARE, SELFPAY | PROVIDERS: PCP Internal Medicine; Visit Provider Nurse Practitioner Family | DX: Z12.11 Encounter for screening for malignant neoplasm of colon (principal); K59.01 Slow transit constipation | CPT/HCPCS: 99212 ==

== ENCOUNTER → 2024-08-09 23:59 | Outpatient (BNV) | payer MEDICARE, SELFPAY ==
--- NOTE | 2024-08-13 20:24 | MHC.OFFVIS ---
Intake Visit Reasons: Remote ILR check- [employer] Allergies oxycodone [From PERCODAN] Allergy (Intermediate, Verified 08/09/24 08:07) HIVES rosuvastatin [From Crestor] Adverse Reaction (Intermediate, Verified 08/09/24 08:07) body aches Hydrocodone-Acetaminophen Adverse Reaction (Unknown, Uncoded 08/09/24 08:07) nausea and vomiting PFSH Medical History Palpitations Hypertension Asthma Anxiety Chronic low back pain On anticoagulant therapy On beta francisco at home PAF (paroxysmal atrial fibrillation) Surgical History H/O cardiac radiofrequency ablation H/O colonoscopy History of evacuation of hematoma History of bowel resection History of knee surgery Family History Father Myocardial infarction CVD (cardiovascular disease) Mother Mental health disorder Sister Mental health disorder Social History Household Members: Spouse, Family and Children 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:: , 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, 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, 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 Are you a primary child care associate teacher to a significant other at home: Yes Do you presently have visiting nurse or other home services: No Alcohol intake: current Alcohol intake frequency: a few times a week Alcohol type: wine Patient Tobacco Use Status: Never used Tobacco e-Cigarette/Vaping Use: Never Used Advance Directives Date on File: 05/24/23 service: No Current occupational status: retired 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 [id number] Cardiac Interrogation, subcut cardiac rhythm monitor Procedure code (CPT) selection complete Assessment & Plan Assessment & Plan (1) Implantable loop recorder present: Code(s): Z95.818 - Presence of other cardiac implants and grafts Category: Medical (2) PAF (paroxysmal atrial fibrillation): Comment: s/p catheter ablation 09/2023 [facility] Code(s): I48.0 - Paroxysmal atrial fibrillation Category: Medical Plan x Coding Level of Care Code Procedure Only Diagnoses Implantable loop recorder present Z95.818 PAF (paroxysmal atrial fibrillation) I48.0 CPT Codes Cardiac Device Check - Cardiac Device 16: [id number] Cardiac Interrogation, subcut cardiac rhythm monitor ([id number])
== END ==
PROVIDERS: PCP Internal Medicine; Visit Provider Internal Medicine
DX: I48.0 Paroxysmal atrial fibrillation (principal); Z95.818 Presence of other cardiac implants and grafts
CPT/HCPCS: 93298

== ENCOUNTER → 2024-09-08 23:59 | Outpatient (BNV) | payer MEDICARE, SELFPAY ==
--- NOTE | 2024-09-15 09:20 | A.OFFVIS_ITS ---
Intake Visit Reasons: Remote ILR check- [employer] Allergies oxycodone (From PERCODAN) Allergy (Intermediate, Verified 08/09/24 08:07) HIVES rosuvastatin (From Crestor) Adverse Reaction (Intermediate, Verified 08/09/24 08:07) body aches Hydrocodone-Acetaminophen Adverse Reaction (Unknown, Uncoded 08/09/24 08:07) nausea and vomiting PFSH Medical History Palpitations Hypertension Asthma Anxiety Chronic low back pain On anticoagulant therapy On beta francisco at home PAF (paroxysmal atrial fibrillation) Surgical History H/O cardiac radiofrequency ablation H/O colonoscopy History of evacuation of hematoma History of bowel resection History of knee surgery Family History Father Myocardial infarction CVD (cardiovascular disease) Mother Mental health disorder Sister Mental health disorder Social History Household Members: Spouse, Family and Children 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:: , 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, 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, 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 Are you a primary hospice spiritual care coordinator to a significant other at home: Yes Do you presently have visiting nurse or other home services: No Alcohol intake: current Alcohol intake frequency: a few times a week Alcohol type: wine Patient Tobacco Use Status: Never used Tobacco e-Cigarette/Vaping Use: Never Used Advance Directives Date on File: 05/24/23 service: No Current occupational status: retired 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 [id number] Cardiac Interrogation, subcut cardiac rhythm monitor Procedure code (CPT) selection complete Assessment & Plan Assessment & Plan (1) Implantable loop recorder present: Code(s): Z95.818 - Presence of other cardiac implants and grafts Category: Medical (2) PAF (paroxysmal atrial fibrillation): Comment: s/p catheter ablation 09/2023 [facility] Code(s): I48.0 - Paroxysmal atrial fibrillation Category: Medical Plan x Coding Level of Care Code Procedure Only Diagnoses Implantable loop recorder present Z95.818 PAF (paroxysmal atrial fibrillation) I48.0 CPT Codes Cardiac Device Check - Cardiac Device 16: [id number] Cardiac Interrogation, subcut cardiac rhythm monitor ([id number])
== END ==
PROVIDERS: PCP Internal Medicine; Visit Provider Internal Medicine
DX: I48.0 Paroxysmal atrial fibrillation (principal); Z95.818 Presence of other cardiac implants and grafts
CPT/HCPCS: 93298

== ENCOUNTER → 2024-10-08 23:59 | Outpatient (BNV) | payer MEDICARE, SELFPAY ==
--- NOTE | 2024-10-17 12:47 | A.OFFVIS_ITS ---
Intake Visit Reasons: Remote ILR check- [employer] Allergies oxycodone (From PERCODAN) Allergy (Intermediate, Verified 08/09/24 08:07) HIVES rosuvastatin (From Crestor) Adverse Reaction (Intermediate, Verified 08/09/24 08:07) body aches Hydrocodone-Acetaminophen Adverse Reaction (Unknown, Uncoded 08/09/24 08:07) nausea and vomiting PFSH Medical History (Updated 10/16/24 @ 14:06 by Bonny Bueno MD) Palpitations Hypertension Asthma Anxiety Chronic low back pain On anticoagulant therapy On beta francisco at home PAF (paroxysmal atrial fibrillation) Surgical History H/O cardiac radiofrequency ablation H/O colonoscopy History of evacuation of hematoma History of bowel resection History of knee surgery Family History Father Myocardial infarction CVD (cardiovascular disease) Mother Mental health disorder Sister Mental health disorder Social History Household Members: Spouse, Family and Children 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:: , 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, 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, 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 Are you a primary emergency care tech to a significant other at home: Yes Do you presently have visiting nurse or other home services: No Alcohol intake: current Alcohol intake frequency: a few times a week Alcohol type: wine Patient Tobacco Use Status: Never used Tobacco e-Cigarette/Vaping Use: Never Used Advance Directives Date on File: 05/24/23 service: No Current occupational status: retired 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 [id number] Cardiac Interrogation, subcut cardiac rhythm monitor Procedure code (CPT) selection complete Assessment & Plan Assessment & Plan (1) Implantable loop recorder present: Code(s): Z95.818 - Presence of other cardiac implants and grafts Category: Medical (2) PAF (paroxysmal atrial fibrillation): Code(s): I48.0 - Paroxysmal atrial fibrillation Category: Medical (3) Syncope and collapse: Code(s): R55 - Syncope and collapse Category: Medical Plan x Coding Level of Care Code Procedure Only Diagnoses Implantable loop recorder present Z95.818 PAF (paroxysmal atrial fibrillation) I48.0 Syncope and collapse R55 CPT Codes Cardiac Device Check - Cardiac Device 16: [id number] Cardiac Interrogation, subcut cardiac rhythm monitor ([id number])
== END ==
PROVIDERS: PCP Internal Medicine; Visit Provider Internal Medicine
DX: I48.0 Paroxysmal atrial fibrillation (principal); Z95.818 Presence of other cardiac implants and grafts; R55 Syncope and collapse
CPT/HCPCS: 93298

== ENCOUNTER 2024-10-14 09:58 | Outpatient (AMB) | payer MEDICARE, SELFPAY ==
--- NOTE | 2024-10-14 10:19 | MHC.OFFVIS ---
Vital Signs 10/14/24 10:20 Height 5 ft 8 in Weight 205 lb 0.478 oz BMI 31.2 BP 120/68 Blood Pressure Location Lt brachial Position Sitting Pulse 70 Pulse Source Pulse Oximeter Intake Visit Reasons: 5 mth fu/ clear for colonoscopy Allergies oxycodone (From PERCODAN) Allergy (Intermediate, Verified 08/09/24 08:07) HIVES rosuvastatin (From Crestor) Adverse Reaction (Intermediate, Verified 08/09/24 08:07) body aches Hydrocodone-Acetaminophen Adverse Reaction (Unknown, Uncoded 08/09/24 08:07) nausea and vomiting Medication List - Last Reconciled 10/14/24 by Vladimir Manley MD acetaminophen (Acetaminophen Extra Strength) 1,000 mg PO DAILY PRN albuterol sulfate 90 mcg/actuation 2 inhalations inhalation Q6-8H PRN apixaban (Eliquis) 5 mg PO BID ascorbic acid (vitamin C) 1,000 mg PO DAILY bisacodyl (Dulcolax (bisacodyl)) 10 mg (2 x 5 mg) PO BEDTIME Breo Ellipta 100-25 mcg/dose (fluticasone furoate-vilanterol) 1 inh inhalation DAILY NS buspirone 5 mg PO BID cholecalciferol (vitamin D3) (Vitamin D3) 50 mcg PO DAILY docusate sodium 100 mg PO BEDTIME evolocumab (Repatha SureClick) 140 mg subcut Q2W ezetimibe 10 mg PO DAILY fluoxetine 20 mg PO DAILY hydroxyzine HCl 12.5 - 25 mg PO DAILY PRN lamotrigine 250 mg PO BEDTIME latanoprost 0.005% 1 drp ophthalmic (eye) BEDTIME metoprolol tartrate 50 mg (2 x 25 mg) PO BID fekgyagheomf-blujjmpp-diwzzl (Multivitamin 50 Plus tablet) 1 tab PO DAILY polyethylene glycol 3350 (Miralax) 238 grams PO ONCE trazodone 100 - 200 mg PO BEDTIME HPI Comments Details: Rowena returns for follow-up regarding atrial fibrillation. To recall, she had atrial fibrillation ablation 2013. Subsequently, was on short-term flecainide for palpitations thought to be from atrial fibrillation but later stopped. She was doing well for many years but more recently again having atrial fibrillation. Started beta-blockers with some improvement. Then flecainide was started. As she continued to get palpitations, underwent another atrial fibrillation ablation this year. After that, she states she feels fine. No further palpitations. No new concerns. 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 Has dyslipidemia. She was on Pravastatin but the LFTs were apparently abnormal and that led to holding it but the LDL went up really high. Currently taking Repatha/Zetia. Most recently, it seems had she came with syncope and seen by my colleague Dr. Anguiano. Unclear etiology. She thinks she blacked out but at the same time she states that she might have also stepped on ice. Hence not clear what is true. There were question of orthostatic hypotension versus arrhythmias. Hence she underwent implantable loop monitor for that. We have not had any alerts since implant as it was just a few days ago. 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, 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 Are you a primary lawn care professional to a significant other at home: Yes Do you presently have visiting nurse or other home services: No Alcohol intake: current Alcohol intake frequency: a few times a week Alcohol type: wine Patient Tobacco Use Status: Never used Tobacco e-Cigarette/Vaping Use: Never Used Advance Directives Date on File: 05/24/23 service: No Current occupational status: retired 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 Current occupational exposures/hazards: No Cognitive needs: No Hearing needs: No Vision needs: Yes Review of Systems Const Denies weakness ENT Denies dizziness Card Denies chest pain, Denies chest pain with activity, Denies syncope, Denies rapid heart rate, Denies pedal edema, Denies edema, Denies leg edema, Denies lightheadedness, Denies palpitations, Denies dyspnea, Denies dyspnea on exertion and Denies orthopnea Resp Denies cough, Denies dyspnea and Denies dyspnea on exertion GI Denies hematochezia and Denies change in stool character Musc Denies abnormal gait, Denies muscle cramps, Denies muscle weakness, Denies numbness, Denies radiating pain into limb and Denies tingling Neuro Denies abnormal gait, Denies dizziness, Denies syncope, Denies numbness, Denies tingling and Denies weakness Endo Denies palpitations Physical Exam Vital Signs: Last Vital Signs Pulse 70 10/14/24 10:20 BP 120/68 10/14/24 10:20 BMI result Body Mass Index 31.2 Const General: comfortable and no acute distress Orientation/consciousness: patient oriented x3 HEENT Other: Unremarkable Head: Yes normal to inspection Neck Neck: Yes normal visual inspection Chest Chest palpation & inspection: normal inspection of the chest Resp Auscultation: clear to auscultation bilaterally Cardio Palpation: normal PMI Heart sounds: S1 normal heart sound present, S2 normal heart sound present, no gallops, no murmurs and no rubs GI Palpation (GI): Soft to palpation Back/Spine/Pelvis Other: unremarkable Skin General skin exam: no rashes or lesions noted Neuro General: patient oriented x3 Extrem General: Yes normal to inspection Psych Mental Status: mental status grossly normal Assessment & Plan Assessment & Plan (1) PAF (paroxysmal atrial fibrillation): Code(s): I48.0 - Paroxysmal atrial fibrillation Category: Medical Plan: Atrial fibrillation ablation in 2013 and September 2023. Off Flecainide. Remains on Metoprolol and Eliquis. (2) Atherosclerotic cardiovascular disease: Code(s): I25.10 - Atherosclerotic heart disease of ramona coronary artery without angina pectoris Category: Medical Plan: Previously, underwent coronary CTA. She has nonobstructive disease in the LAD, diagonal, RCA. Myocardial perfusion imaging study from 2019 showed normal perfusion. Echocardiogram from [facility] 07/2023 with LVEF of 55-60%, no wall motion abnormalities. Otherwise unremarkable. Repeat perfusion imaging from [facility] 07/2023 is unremarkable. Mainly, risk factor modification. (3) Other and unspecified hyperlipidemia: Code(s): E78.5 - Hyperlipidemia, unspecified Category: Medical Plan: Statin intolerant. Also had some LFT issues. Currently on Repatha and Zetia. Last LDL 83 mg/dL. In the past, as much as 249 mg/dL. (4) Syncope and collapse: Code(s): R55 - Syncope and collapse Category: Medical Plan: Suspect this could be just mechanical, possibly gait issues, and less likely cardiogenic. Implantable loop recorder was done but monitoring shows no concerning findings. Plan Discussion Notes During the consultation, I discussed with the patient the importance of regular cardiac monitoring and maintaining her current medication regimen to manage atrial fibrillation effectively. We reviewed the potential impact of her medications on fall risk and emphasized the need for a cholesterol check as part of her preventative care. The patient was advised to continue her exercises to enhance her physical stability. Patient was informed and verbally consented to the use of an ambient scribe for clinic note documentation during this visit. Patient Instructions: - Continue taking metoprolol and Eliquis as prescribed. - Schedule a cholesterol check soon. - Keep up with exercises to improve stability. - Monitor for any side effects from medications and report them. Coding Level of Care Code Est Pt Level 4 (46601) Complex EM visit Add On G2211 Diagnoses PAF (paroxysmal atrial fibrillation) I48.0 Atherosclerotic cardiovascular disease I25.10 Other and unspecified hyperlipidemia E78.5 Syncope and collapse R55
[2024-10-14 10:20] VITALS: BP 120/68; PULSE 70; BMI 31.2
--- OUTSIDE RECORDS SUMMARY | 2024-10-14 10:43 | XMS_ITS | Encounter Summary ---
Author Organization [facility] Address [address] [place] [address] Care Team Providers Care [employer] Business Manager Name Role Phone Johana Shelby MD Primary Care Provider [phone] Belén Sibley MD Primary Care Provider Unava Trip Arce DO Primary Care Provider Janell Ash Pastrana MD Primary Care Provider Unavailab Marina Sparks MD Primary Care Provider [phone] Tashia Rice MD Primary Care Provider Unavajosué [facility], Pcp Primary Care Provider Unavailabl e Reason for Visit * Reason Onset Date Comments Provider Call Back 04/20/2011 Encounter Details Date Type Department Care Team Description 04/20/2011 Telephone General Surgery [address], [place] [id number] Shawn Tobar MD [address] [place] [id number] Provider Call Back Social History Tobacco Use [...] Patient is concerned please contact her at [phone]. documented in this encounter Plan of Treatment Not on file documented as of this encounter Visit Diagnoses Not on filedocumented in this encounter Care Teams [employer] Business Manager Relationship Specialty Start Date End Date Johana Shelby MD [address] [place] [address] PCP - General 10/20/05 05/02/11 Belén Sibley MD [address] [place] [address] PCP - General Internal Medicine 05/03/11 08/11/20 Trip Tyler DO [address] [place] [address] PCP - General Internal Medicine 08/12/20 09/16/20 Ash Mcdowell MD [address] [place] [address] PCP - General Internal Medicine 09/17/20 03/07/21 Marina Mclaughlin MD [address] [place] [address] PCP - General Internal Medicine 03/08/21 06/09/21 Tashia Rice MD [address] [place], [place] [id number] PCP - General Internal Medicine 06/10/21 02/09/22 [facility], Pcp [address] [place], [place] [id number] PCP - General Internal Medicine 02/10/22 documented as of this encounter
--- OUTSIDE RECORDS SUMMARY | 2024-10-14 10:43 | XMS_ITS | Clinical Summary ---
Author Organization [facility] Address [address] [place] [address] Care Team Providers Care Neurophysiology Tech Name Role Phone Tashia Rice MD Primary Care Provider [phone] Surgical History Surgery Date Site/Laterality Comments OTHER SURGICAL HISTORY PROCEDURE: ARTHROSCOPY PROCEDURE NEC; COMMENT: knee ENDOMETRIAL ABLATION 05/03/2006 PROCEDURE: MS ENDOMETRIAL ABLTJ THERMAL W/O HYSTEROSCOPIC GUID; COMMENT: Novasure COLONOSCOPY 2001 PROCEDURE: MS COLONOSCOPY FLX DX W/COLLJ SPEC WHEN PFRMD; COMMENT: diverticulosis COLONOSCOPY 01/07/08 PROCEDURE: MS COLONOSCOPY STOMA DX INCLUDING COLLJ SPEC SPX; COMMENT: Up to cecum, mild sigmoid diverticulosis, tortuous sigmoid colon, otherwise normal colon exam OTHER SURGICAL HISTORY 02/2011 PROCEDURE: MS COLECTOMY PARTIAL W/ANASTOMOSIS; COMMENT: diverticulitis TOTAL KNEE ARTHROPLASTY 2017 Bilateral PROCEDURE: MS ARTHRP KNE CONDYLE&PLATU MEDIAL&LAT COMPARTMENTS COLONOSCOPY 08/29/2018 [...] 03/18/2005 DX:Depressiv e disorder; COMMENT: Admitted to [facility] status post suicide attempt/Vicodin overdose 01/20/14 Allergic rhinitis 03/18/2005 DX:Allergic rh initis Essential tremor 12/13/2018 DX:Essential tr emor Family History Medical History Relation Name Comments Bipolar disorder Daughter Other: CAD Father PTCA, stents, a t age 72, from [place] age 74 No Known Problems Maternal Grandfather No Known Problems Maternal Grandmother Other: TIA Mother No Known Problems Other No Known Problems Paternal Grandfather No Known Problems Paternal Grandmother No Known Problems Sister Breast cancer Neg Hx Colon cancer Neg Hx Ovarian cancer Neg Hx Relation Name Status Comments Daughter Father [place] 74yo, lipids ,prostate cancer Maternal Grandfather Maternal [...] Panel) 03/05/2022 Colorectal Cancer Screening: Colonoscopy 03/05/2022 Falls Risk Assessment 03/05/2022 Hepatitis C Screening 03/05/2022 Osteoporosis Screening (Bone Density Screening) 03/05/2022 Social Influencers of Health Screening 03/05/2022 Breast Cancer Screening 03/31/2022 03/31/19, 04/03/2019, 03/28/2019, Additional history exists COVID-19 Vaccine ( season) 2023 02/16/2021, 07/10/2020, 06/18/2020 Depression Screening 03/27/2024 Influenza Vaccine (#1) 2024 , 01/09/2020, 12/25/2018, Additional history exists Pneumococcal [...] to 12/11/2013 with most recent of 03/28/2019. The breasts are composed of fatty and fibroglandular tissue. No suspicious mass, architectural distortion or suspicious calcifications [...] Documents on File Type Date Recorded Patient Research Program Assistant Expl anation Health Care Decision (hx) 02/18/2011 AD ADAMS DIRECTIVE Health Care Decision (hx) 02/18/2011 AD ADAMS DIRECTIVE Health Care Decision (hx) 02/18/2011 AD ADAMS DIRECTIVE Health Care Decision (hx) 02/18/2011 AD ADAMS DIRECTIVE Health Care Decision (hx) 02/18/2011 AD ADAMS DIRECTIVE Care Teams Neurophysiology Tech Relationship Specialty Start Date End Date Tashia Rice MD [address] [place] [address] PCP - General Internal Medicine 06/10/21
--- OUTSIDE RECORDS SUMMARY | 2024-10-14 10:43 | XMS_ITS | Patient Health Record ---
Author Organization [facility] Address [address] [place] [address] Care Team Providers Care Event Marketing Specialist Name Role Phone Bonny Bueno MD Primary Care Provider Laura Quintana Unavailable [phone] Allergies Allergen (clinical drug ingredient) Drug/Non Drug [...] Referring Provider Last Name Myles Referred Organization [facility] Referred Provider Laura Wheeler Referred Address [address] [facility],[place],[address], Referred Provider Specialty Podiatry Referral Priority Routine [...] Notes Problem Plantar fasciitis of left foot ([id number] 9101) Plantar fasciitis of left foot (M72.2) Active confirmed Vital Signs Blood pressure diastolic 80 mm Hg 04/04/2024 Height 5ft 8inch in 04/04/2024 Blood pressure systolic 120 mm Hg 04/04/2024 Weight 202 lbs 04/04/2024 BMI 30.71 kg/m2 04/04/2024 Encounters Encounter Location Date Provider Diagnosis [facility] [address] 04/04/2024 Laura Wheeler Pain in left foot M79.672 ; Plantar fasciitis of left foot M72.2 ; Calcaneal spur, left foot M77.32 and Bursitis of left foot M77.[address] [address] 02/21/2024 Laura Wheeler [address] [address] 05/01/2024 Laura Wheeler Assessments Encounter Date Diagnosis [...] Insured Coverage Start Date Coverage End Date [facility] [address] [place] [address] [id number] 3 Rowena Page Self - patient is the insured Medical (General) History Medical History History ICD Code Anxiety asthma CAD (Cholesterol) Cataracts covid-19 Depression Diverticulosis Glaucoma Heart disease High Blood Pressure Chicken pox Joint implants/screws Surgical History Surgery Date(Month/Year) cardiac ablation bilateral knee replacement bowel resection
== END 2024-10-14 10:38 | disposition home or self-care (01) ==
LOC: HO.HCS 09:59
PROVIDERS: PCP Internal Medicine; Visit Provider Internal Medicine
DX: I48.0 Paroxysmal atrial fibrillation (principal); I25.10 Atherosclerotic heart disease of native coronary artery without angina pectoris; E78.5 Hyperlipidemia, unspecified; R55 Syncope and collapse
CPT/HCPCS: 99214; G2211

== ENCOUNTER → 2024-10-14 09:58 | Outpatient (BNVA) | payer MEDICARE, SELFPAY | PROVIDERS: PCP Internal Medicine; Visit Provider Internal Medicine | DX: I48.0 Paroxysmal atrial fibrillation (principal); I25.10 Atherosclerotic heart disease of native coronary artery without angina pectoris; E78.5 Hyperlipidemia, unspecified; R55 Syncope and collapse | CPT/HCPCS: 99212 ==

== ENCOUNTER 2024-10-15 07:33 | Outpatient (REF) | payer MEDICARE, SELFPAY ==
--- OUTSIDE RECORDS SUMMARY | 2024-10-15 07:36 | XMS_ITS | Clinical Summary ---
Author Organization [facility] Address [address] [place] [address] Care Team Providers Care Roads And Parking Lots Sweeper Operator Name Role Phone Tashia Rice MD Primary Care Provider [phone] Surgical History Surgery Date Site/Laterality Comments OTHER SURGICAL HISTORY PROCEDURE: ARTHROSCOPY PROCEDURE NEC; COMMENT: knee ENDOMETRIAL ABLATION 05/03/2006 PROCEDURE: MT ENDOMETRIAL ABLTJ THERMAL W/O HYSTEROSCOPIC GUID; COMMENT: Novasure COLONOSCOPY 2001 PROCEDURE: MT COLONOSCOPY FLX DX W/COLLJ SPEC WHEN PFRMD; COMMENT: diverticulosis COLONOSCOPY 01/07/08 PROCEDURE: MT COLONOSCOPY STOMA DX INCLUDING COLLJ SPEC SPX; COMMENT: Up to cecum, mild sigmoid diverticulosis, tortuous sigmoid colon, otherwise normal colon exam OTHER SURGICAL HISTORY 02/2011 PROCEDURE: MT COLECTOMY PARTIAL W/ANASTOMOSIS; COMMENT: diverticulitis TOTAL KNEE ARTHROPLASTY 2017 Bilateral PROCEDURE: MT ARTHRP KNE CONDYLE&PLATU MEDIAL&LAT COMPARTMENTS COLONOSCOPY 08/29/2018 [...] 03/18/2005 DX:Depressiv e disorder; COMMENT: Admitted to [facility] status post suicide attempt/Vicodin overdose 01/20/14 Allergic rhinitis 03/18/2005 DX:Allergic rh initis Essential tremor 12/13/2018 DX:Essential tr emor Family History Medical History Relation Name Comments Bipolar disorder Daughter Other: CAD Father PTCA, stents, a t age 72, from [place] at age 74 No Known Problems Maternal Grandfather No Known Problems Maternal Grandmother Other: TIA Mother No Known Problems Other No Known Problems Paternal Grandfather No Known Problems Paternal Grandmother No Known Problems Sister Breast cancer Neg Hx Colon cancer Neg Hx Ovarian cancer Neg Hx Relation Name Status Comments Daughter Father [place] 74yo, lipids ,prostate cancer Maternal Grandfather Maternal [...] Documents on File Type Date Recorded Patient Escalator Operator Expl anation Health Care Decision (hx) 02/18/2011 AD ADAMS DIRECTIVE Health Care Decision (hx) 02/18/2011 AD ADAMS DIRECTIVE Health Care Decision (hx) 02/18/2011 AD ADAMS DIRECTIVE Health Care Decision (hx) 02/18/2011 AD ADAMS DIRECTIVE Health Care Decision (hx) 02/18/2011 AD ADAMS DIRECTIVE Care Teams Roads And Parking Lots Sweeper Operator Relationship Specialty Start Date End Date Tashia Rice MD [address] [place] [address] PCP - General Internal Medicine 06/10/21
--- OUTSIDE RECORDS SUMMARY | 2024-10-15 07:36 | XMS_ITS | Patient Health Record ---
Author Organization [facility] Address [address] [place] [address] Care Team Providers Care Audit Spec Name Role Phone Bonny Bueno MD Primary Care Provider Laura Quintana Unavailable [phone] Allergies Allergen (clinical drug ingredient) Drug/Non Drug [...] Referring Provider Last Name Myles Referred Organization [facility] Referred Provider Laura Wheeler Referred Address [address] [facility],[place], [place],[address], Referred Provider Specialty Podiatry Referral Priority Routine [...] Notes Problem Plantar fasciitis of left foot ([id number] 9101) Plantar fasciitis of left foot (M72.2) Active confirmed Vital Signs Blood pressure diastolic 80 mm Hg 04/04/2024 Height 5ft 8inch in 04/04/2024 Blood pressure systolic 120 mm Hg 04/04/2024 Weight 202 lbs 04/04/2024 BMI 30.71 kg/m2 04/04/2024 Encounters Encounter Location Date Provider Diagnosis [facility] [address] 04/04/2024 Laura Wheeler Pain in left foot M79.672 ; Plantar fasciitis of left foot M72.2 ; Calcaneal spur, left foot M77.32 and Bursitis of left foot M77.[address] [address] 02/21/2024 Laura Wheeler [address] [address] 05/01/2024 Laura Wheeler Assessments Encounter Date Diagnosis [...] Insured Coverage Start Date Coverage End Date [facility] [address] [place] [address] [id number] 3 Rowena Page Self - patient is the insured Medical (General) History Medical History History ICD Code Anxiety asthma CAD (Cholesterol) Cataracts covid-19 Depression Diverticulosis Glaucoma Heart disease High Blood Pressure Chicken pox Joint implants/screws Surgical History Surgery Date(Month/Year) cardiac ablation bilateral knee replacement bowel resection
[2024-10-15 10:39] LABS: MANUAL DIFF FLAG NO
[2024-10-15 10:43] LABS: Hematocrit 43.0 % (37.0-47.0); Hemoglobin 14.5 g/dl (12.0-16.0); Imm Gran Abs Auto 0.01 X10*3/uL (0.00-0.03); Imm Gran Pct Auto 0.2 % (0.0-0.4); Lymphocytes Absolute Auto 1.2 X10*3/uL (1.2-4.9); Mean Corpuscular HGB Conc 33.7 g/dl (31.0-35.0); Mean Corpuscular Hemoglobin 31.7 pg (27.0-33.0); Mean Corpuscular Volume 93.9 fL (80.0-98.0); NRBC Abs Auto 0.000 X10*3/uL (0.0-0.012); NRBC Pct Auto 0.0 /100WBC (0.0-0.2); Platelet Count 182 X10*3/uL (160-400); Red Blood Count 4.58 X10*6/uL (4.20-5.50); White Blood Count 4.8 X10*3/uL (4.8-10.8)
[2024-10-15 11:09] LABS: Alanine Aminotransferase 35 U/L (0-31); Albumin Level 4.6 g/dL (3.5-5.0); Alkaline Phosphatase 79 U/L (39-117); Anion Gap 10 (12-20); Aspartate Amino Transferase 35 U/L (5-31); Blood Urea Nitrogen 11 mg/dL (9-16); Calcium 9.3 mg/dL (8.4-10.2); Carbon Dioxide 31 mmol/L (22-29); Chloride 103 mmol/L (96-108); Cholesterol 200 mg/dL (<200); Estimated Glomerular Filt Rate > 60; HDL Cholesterol 60 mg/dL (>40); Potassium 4.4 mmol/L (3.3-5.1); Sodium 140 mmol/L (135-145); Total Protein 7.6 g/dL (6.5-8.0); Triglycerides 161 mg/dL (<150)
[2024-10-15 11:29] LABS: Folate 14.0 ng/mL (> or = 4.0); Vitamin B12 857 pg/mL (200-900)
== END 2024-10-15 07:34 | disposition home or self-care (01) ==
LOC: HO.HMGCLDS 07:33
PROVIDERS: PCP Internal Medicine; Visit Provider Internal Medicine
DX: I48.0 Paroxysmal atrial fibrillation (principal); E78.5 Hyperlipidemia, unspecified; E55.9 Vitamin D deficiency, unspecified; E53.8 Deficiency of other specified B group vitamins
CPT/HCPCS: 36415; 80053; 80061; 82306; 82607; 82746; 85025

== ENCOUNTER 2024-10-16 08:53 | Outpatient (AMB) | payer MEDICARE, SELFPAY ==
[2024-10-16 09:03] VITALS: BP 126/82; PULSE 57; RESP 18; TEMP 36.8; O2SAT 96; BMI 31.5
--- NOTE | 2024-10-16 09:03 | MHC.PC.OV ---
Vital Signs 10/16/24 09:03 Height 5 ft 8 in Weight 207 lb BMI 31.5 BP 126/82 Blood Pressure Location Lt brachial Position Sitting Respiration 18 Pulse 57 Pulse Source Pulse Oximeter Temp 98.2 F Temp Source Oral Pulse Oximetry (%) 96 Oxygen Delivery Method Room Air Intake Visit Reasons: 6m follow up Intake Note: Pt is here today for 6 months follow up visit. Pt states that she has pain in her R wrist/hand. Allergies oxycodone (From PERCODAN) Allergy (Intermediate, Verified 08/09/24 08:07) HIVES rosuvastatin (From Crestor) Adverse Reaction (Intermediate, Verified 08/09/24 08:07) body aches Hydrocodone-Acetaminophen Adverse Reaction (Unknown, Uncoded 08/09/24 08:07) nausea and vomiting Medication List - Last Reconciled 10/16/24 by Bonny Bueno MD acetaminophen (Acetaminophen Extra Strength) 1,000 mg PO DAILY PRN albuterol sulfate 90 mcg/actuation 2 inhalations inhalation Q6-8H PRN apixaban (Eliquis) 5 mg PO BID ascorbic acid (vitamin C) 1,000 mg PO DAILY bisacodyl (Dulcolax (bisacodyl)) 10 mg (2 x 5 mg) PO BEDTIME Breo Ellipta 100-25 mcg/dose (fluticasone furoate-vilanterol) 1 inh inhalation DAILY NS buspirone 5 mg PO BID cholecalciferol (vitamin D3) (Vitamin D3) 50 mcg PO DAILY docusate sodium 100 mg PO BEDTIME evolocumab (Repatha Jonelleick) 140 mg subcut Q2W ezetimibe 10 mg PO DAILY fluoxetine 20 mg PO DAILY hydroxyzine HCl 12.5 - 25 mg PO DAILY PRN lamotrigine 250 mg PO BEDTIME latanoprost 0.005% 1 drp ophthalmic (eye) BEDTIME metoprolol tartrate 50 mg PO BID qrflfgtbxrjc-mlbzkwyv-tvlhzz (Multivitamin 50 Plus tablet) 1 tab PO DAILY polyethylene glycol 3350 (Miralax) 238 grams PO ONCE trazodone 100 - 200 mg PO BEDTIME Tobacco use date assessed: 10/16/24 Fall risk assessment: No Falls in past year Last assessed Fall Risk: 10/16/24 Dental Screening Dental Screen Date: 04/17/24 HPI 6m follow up HPI Details Patient presents for the follow-up of hyperlipidemia paroxysmal AFib, chronic asthma, chronic depression and anxiety established with Psychiatry. Patient complains of pain at the base of right thumb for the last week. She denies any injury but has been using her hands a lot. Patient denies any weakness in the hand water manager or joint swelling [facility] Medical History Palpitations Hypertension Asthma Anxiety Chronic low back pain On anticoagulant therapy On beta francisco at home PAF (paroxysmal atrial fibrillation) Surgical History H/O cardiac radiofrequency ablation H/O colonoscopy History of evacuation of hematoma History of bowel resection History of knee surgery Family History Father Myocardial infarction CVD (cardiovascular disease) Mother Mental health disorder Sister Mental health disorder Social History Household Members: Spouse, Family and Children 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:: , 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, 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, 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 Are you a primary director critical care to a significant other at home: Yes Do you presently have visiting nurse or other home services: No Alcohol intake: current Alcohol intake frequency: a few times a week Alcohol type: wine Patient Tobacco Use Status: Never used Tobacco e-Cigarette/Vaping Use: Never Used Advance Directives Date on File: 05/24/23 service: No Current occupational status: retired 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 Current occupational exposures/hazards: No Cognitive needs: No Hearing needs: No Vision needs: Yes Questionnaire Thrive Questionnaire Date Thrive assessed: 04/10/24 I am a: Patient What is your living situation today?: I have a steady place to live Within the past 12 months, did the food you bought not last and you didn't have the money to get more?: Never true Within the past 12 months, did you worry whether your food would run out before you got money to buy more?: Never true Do you have trouble paying for medicines?: No Do you have trouble getting transportation to medical appointments?: No Do you have trouble paying your heating and electricity bill?: No Do you have trouble taking care of your child, family member or friend?: No Do you have trouble with day-to-day activities such as bathing, preparing meals, shopping, managing finances, etc.?: No Are you currently unemployed and looking for a job?: No Are you interested in more education?: No Please select the resources that you would like help with: None Currently or been in a relationship where the following occur: No concerns reported THRIVE Score: 0 MERLIN-7 AMB Questionnaire MERLIN-7 Date MERLIN - 7 assessed: 11/01/23 Source: Developed by Drs. Trip Miller, Susan Hewitt, Raman Gibson and colleagues, with an educational celio from [employer]. Review of Systems Const All systems reviewed & are unremarkable except as noted in HPI and below ENT Reports no additional complaints Card Reports no additional complaints Resp Reports no additional complaints GI Reports no additional complaints Reports no additional complaints Physical exam (Primary Care) Vital Signs: Last Vital Signs Temp 98.2 F 10/16/24 09:03 Pulse 57 10/16/24 09:03 Resp 18 10/16/24 09:03 BP 126/82 10/16/24 09:03 Pulse Ox 96 10/16/24 09:03 Oxygen Delivery Method Room Air 10/16/24 09:03 BMI result Body Mass Index 31.5 Tobacco/Smoking Status: Tobacco use Status Tobacco use date assessed 10/16/24 10/16/24 09:12 Patient Tobacco Use Status Never used Tobacco 10/16/24 09:12 e-Cigarette/Vaping Use Never Used 10/16/24 09:12 Thrive Assessment: Date of Thrive Assessment Date Thrive assessed 04/10/24 10/16/24 09:12 Currently or been in a relationship where the following occur: No concerns reported Const General: no acute distress HENMT Head: Yes normal to inspection Eyes General: appearance normal, both eyes and all related structures Resp Effort & Inspection: normal respiratory effort Auscultation: clear to auscultation bilaterally Cardio Rhythm: regular rhythm Heart sounds: S1 normal heart sound present and S2 normal heart sound present GI Inspection: Yes normal to inspection Palpation (GI): Soft to palpation Percussion: Yes normal to percussion Auscultation: normal bowel sounds Extrem Other: There is slight tenderness at the base of the right thumb no soft tissue swelling erythema warmth Coding Level of Care Code Est Pt Level 4 (20874) Diagnoses Anxiety and depression F41.9; F32.A PAF (paroxysmal atrial fibrillation) I48.0 Hyperlipidemia E78.5 Asthma J45.909 Right hand tendonitis M77.8 Assessment & Plan Assessment & Plan (1) Anxiety and depression: Comment: f/u with psychiatrist, 2 suicidal attempts 2013, Code(s): F41.9 - Anxiety disorder, unspecified; F32.A - Depression, unspecified Category: Medical Plan: Continue current medications (2) PAF (paroxysmal atrial fibrillation): Code(s): I48.0 - Paroxysmal atrial fibrillation Category: Medical Plan: On Eliquis and beta francisco and established with Cardiology (3) Hyperlipidemia: Comment: Atorvastatin was stopped by Cardiology, intolerant to Crestor(myalgia), on Praluent since 08/16 Code(s): E78.5 - Hyperlipidemia, unspecified Category: Medical Plan: Continue current medications (4) Asthma: Comment: Exercise induced, controlled on Breo Code(s): J45.909 - Unspecified asthma, uncomplicated Category: Medical Plan: Continue Breo, follow-up in 6 months with a fasting labs before (5) Right hand tendonitis: Code(s): M77.8 - Other enthesopathies, not elsewhere classified Category: Medical Plan: Meloxicam for 10 days is prescribed patient was advised to wear a wrist splint for 1 week Orders: Orders Complete Blood Count Auto Diff 6 Months I48.0 - Paroxysmal atrial fibrillation, J45.909 - Unspecified asthma, uncomplicated Lipid Panel 6 Months I48.0 - Paroxysmal atrial fibrillation, J45.909 - Unspecified asthma, uncomplicated Comprehensive Arch Cape. Panel Fast 6 Months I48.0 - Paroxysmal atrial fibrillation, J45.909 - Unspecified asthma, uncomplicated Medications: New metoprolol tartrate 50 mg PO BID 180 tabs 3RF meloxicam 15 mg PO DAILY 10 tabs 0RF Discontinued metoprolol tartrate Discontinued Reason: Doctor's Order 50 mg (2 x 25 mg) PO BID 180 tabs 3RF
--- OUTSIDE RECORDS SUMMARY | 2024-10-16 09:20 | XMS_ITS | Patient Health Record ---
[facility] Address [address] [place] [address] Care Team Providers Care Interdisciplinary Professor Name Role Phone Bonny Bueno MD Primary Care Provider Laura Quintana Unavailable [phone] Allergies Allergen (clinical drug ingredient) Drug/Non Drug [...] Referring Provider Last Name Myles Referred Organization [facility] Referred Provider Laura Wheeler Referred Address [address] [facility],[place], [place],[address], Referred Provider Specialty Podiatry Referral Priority Routine [...] Notes Problem Plantar fasciitis of left foot ([id number] 9101) Plantar fasciitis of left foot (M72.2) Active confirmed Vital Signs Blood pressure diastolic 80 mm Hg 04/04/2024 Height 5ft 8inch in 04/04/2024 Blood pressure systolic 120 mm Hg 04/04/2024 Weight 202 lbs 04/04/2024 BMI 30.71 kg/m2 04/04/2024 Encounters Encounter Location Date Provider Diagnosis [facility] [address] 04/04/2024 Laura Wheeler Pain in left foot M79.672 ; Plantar fasciitis of left foot M72.2 ; Calcaneal spur, left foot M77.32 and Bursitis of left foot M77.[address] [address] 02/21/2024 Laura Wheeler [address] [address] 05/01/2024 Laura Wheeler Assessments Encounter Date Diagnosis [...] Insured Coverage Start Date Coverage End Date [facility] [address] [place] [address] [id number] 3 Rowena Page Self - patient is the insured Medical (General) History Medical History History ICD Code Anxiety asthma CAD (Cholesterol) Cataracts covid-19 Depression Diverticulosis Glaucoma Heart disease High Blood Pressure Chicken pox Joint implants/screws Surgical History Surgery Date(Month/Year) cardiac ablation bilateral knee replacement bowel resection
--- OUTSIDE RECORDS SUMMARY | 2024-10-16 09:21 | XMS_ITS | Clinical Summary ---
Author Organization [facility] Address [address] [place] [address] Care Team Providers Care Valve Mechanic Name Role Phone Tashia Rice MD Primary Care Provider [phone] Surgical History Surgery Date Site/Laterality Comments OTHER SURGICAL HISTORY PROCEDURE: ARTHROSCOPY PROCEDURE NEC; COMMENT: knee ENDOMETRIAL ABLATION 05/03/2006 PROCEDURE: [place] ENDOMETRIAL ABLTJ THERMAL W/O HYSTEROSCOPIC GUID; COMMENT: Novasure COLONOSCOPY 2001 PROCEDURE: RI COLONOSCOPY FLX DX W/COLLJ SPEC WHEN PFRMD; COMMENT: diverticulosis COLONOSCOPY 01/07/08 PROCEDURE: RI COLONOSCOPY STOMA DX INCLUDING COLLJ SPEC SPX; COMMENT: Up to cecum, mild sigmoid diverticulosis, tortuous sigmoid colon, otherwise normal colon exam OTHER SURGICAL HISTORY 02/2011 PROCEDURE: RI COLECTOMY PARTIAL W/ANASTOMOSIS; COMMENT: diverticulitis TOTAL KNEE ARTHROPLASTY 2017 Bilateral PROCEDURE: RI ARTHRP KNE CONDYLE&PLATU MEDIAL&LAT COMPARTMENTS COLONOSCOPY 08/29/2018 [...] 03/18/2005 DX:Depressiv e disorder; COMMENT: Admitted to [facility] status post suicide attempt/Vicodin overdose 01/20/14 [...] Documents on File Type Date Recorded Patient Switch Technician Expl anation Health Care Decision (hx) 02/18/2011 AD ADAMS DIRECTIVE Health Care Decision (hx) 02/18/2011 AD ADAMS DIRECTIVE Health Care Decision (hx) 02/18/2011 AD ADAMS DIRECTIVE Health Care Decision (hx) 02/18/2011 AD ADAMS DIRECTIVE Health Care Decision (hx) 02/18/2011 AD ADAMS DIRECTIVE Care Teams Valve Mechanic Relationship Specialty Start Date End Date Tashia Rice MD [address] [place] [address] PCP - General Internal Medicine 06/10/21
--- OUTSIDE RECORDS SUMMARY | 2024-10-16 09:21 | XMS_ITS ---
Author Name [facility] Organization Unknown Care Team Organization Name Specialty Phone Email Start Date End Da te [facility] Marina Mclaughlin Primary Care 04/04/2022 11/13/19 [facility] Tashia Rice Primary Care 02/01/202210/25
== END 2024-10-16 15:07 | disposition home or self-care (01) ==
LOC: HO.HMCC 08:54
PROVIDERS: PCP Internal Medicine; Visit Provider Internal Medicine
DX: F41.9 Anxiety disorder, unspecified (principal); F32.A Depression, unspecified; I48.0 Paroxysmal atrial fibrillation; E78.5 Hyperlipidemia, unspecified; J45.909 Unspecified asthma, uncomplicated; M77.8 Other enthesopathies, not elsewhere classified

== ENCOUNTER → 2024-10-16 08:53 | Outpatient (BNVA) | payer MEDICARE, SELFPAY | PROVIDERS: PCP Internal Medicine; Visit Provider Internal Medicine | DX: I48.0 Paroxysmal atrial fibrillation (principal); E78.5 Hyperlipidemia, unspecified; J45.909 Unspecified asthma, uncomplicated; F32.A Depression, unspecified; F41.9 Anxiety disorder, unspecified; M77.8 Other enthesopathies, not elsewhere classified | CPT/HCPCS: 99212 ==

== ENCOUNTER 2024-10-20 15:23 | Emergency (ER) | payer MEDICARE, SELFPAY ==
--- NOTE | ~2024-10-20 | XR_ITS ---
CLINICAL HISTORY: pain. 3 view right hand Comparison: None provided Findings: Bones intact. No dislocations. Mild arthritic change. No erosions. No radiopaque foreign body. IMPRESSION: 1. No acute findings This document has been electronically signed by: Halina Auguste MD on 10/20/2024 17:06:13
--- NOTE | ~2024-10-20 | XR_ITS ---
CLINICAL HISTORY: pain. fracture? 4 view right wrist Comparison: None provided Findings: Bones intact. No dislocations. Mild arthritic change. No radiopaque foreign body. IMPRESSION: 1. No acute findings This document has been electronically signed by: Halina Auguste MD on 10/20/2024 17:04:23
[2024-10-20 15:54] VITALS: BP 151/75; PULSE 65; RESP 16; TEMP 36.2; O2SAT 95; BMI 32.1
--- NOTE | 2024-10-20 15:59 | ED_ITS ---
HPI - Extremity Problem General Chief complaint: Extremity Injury, Upper Stated complaint: right wrist inj wants to get it checked Time Seen by Provider: 10/20/24 17:13 Source: patient Mode of arrival: ambulatory Limitations: no limitations History of Present Illness ED Provider: Mario Garrett HPI Narrative: 69 yold female with pmh of anxiety, asthma, ACS , presents to the ED for right wrist since last week while using her right hand to get to the ground and hearing a crunch in right wrist. Patient states pain ever since. patient states no falling, head trauma, or any other complaints. Related Data Home Medications ?Medication ?Instructions ?Recorded ?Confirmed lamotrigine 100 mg tablet 250 mg PO BEDTIME 10/01/20 0 10/16/24 latanoprost 0.005 % eye drops 1 drp ophthalmic (eye) B EDTIME 10/01/20 10/16/24 trazodone 100 mg tablet 100 - 200 mg PO BEDTIME Slee p 10/01/20 10/16/24 fluoxetine 20 mg capsule 20 mg PO DAILY 12/01/2109/25 ascorbic acid (vitamin C) 500 mg 1,000 mg PO DAILY 12/1710/16/24 capsule cholecalciferol (vitamin D3) 50 50 mcg PO DAILY 10/16/24 mcg (2,000 unit) capsule (Vitamin D3) girqxlleozwg-cjtotpku-frfsid 1 tab PO DAILY 06/08/22 0 10/16/24 tablet (Multivitamin 50 Plus tablet) acetaminophen 500 mg tablet 1,000 mg PO DAILY PRN Pain 09/12/23 10/16/24 (Acetaminophen Extra Strength) hydroxyzine HCl 25 mg tablet 12.5 - 25 mg PO DAILY PRN Anxiety 05/08/24 10/16/24 Previous Rx's ?Medication ?Instructions ?Recorded docusate sodium 100 mg capsule 100 mg PO BEDTIME #90 c aps 12/20/21 albuterol sulfate 90 mcg/actuation 2 inh inhalation Q6 -8H PRN 03/26/24 aerosol inhaler shortness of breath or wheez ing #8.5 grams evolocumab 140 mg/mL subcutaneous 140 mg subcut Q2W #2 mL 05/10/24 pen injector (Nicko Mcginnis) Breo Ellipta 100 mcg-25 mcg/dose 1 inh inhalation FRANK Y #60 ea 07/01/24 powder for inhalation (fluticasone furoate-vilanterol) apixaban 5 mg tablet (Eliquis) 5 mg PO BID #180 tabs 0 07/09/24 bisacodyl 5 mg tablet,delayed 10 mg (2 x 5 mg) PO BEDT KELVIN #180 08/09/24 release (Dulcolax (bisacodyl)) tabs polyethylene glycol 3350 17 238 g PO ONCE #238 grams 0 08/09/24 gram/dose oral powder (Miralax) buspirone 5 mg tablet 5 mg PO BID #180 tabs ezetimibe 10 mg tablet 10 mg PO DAILY #90 tabs 08/25 06/18 meloxicam 15 mg tablet 15 mg PO DAILY #10 tabs 09/25 06/18 metoprolol tartrate 50 mg tablet 50 mg PO BID #180 tab s 10/16/24 Allergies Allergy/AdvReac Type Severity Reaction Status Date / Time oxycodone (From PERCODAN) Allergy Intermediate HIVES Verified 10/20/24 15:56 rosuvastatin (From Crestor) AdvReac Intermediate body aches Verified 10/20/24 15:56 Hydrocodone-Acetaminophen AdvReac Unknown nausea and Uncoded 08/09/24 08:07 vomiting Review of Systems 2 Review of Systems: right wrist pain Yes all other systems are reviewed and are negative [facility] Past Medical History Medical History (Updated 10/21/24 @ 00:01 by Radha Vicente) Palpitations Hypertension Asthma Anxiety Chronic low back pain On anticoagulant therapy On beta francisco at home PAF (paroxysmal atrial fibrillation) Surgical History H/O cardiac radiofrequency ablation H/O colonoscopy History of evacuation of hematoma History of bowel resection History of knee surgery Family History Family History Father Myocardial infarction CVD (cardiovascular disease) Mother Mental health disorder Sister Mental health disorder Social History Social History Household Members: Spouse, Family and Children 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:: , 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, 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, 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 Are you a primary animal care giver to a significant other at home: Yes Do you presently have visiting nurse or other home services: No Alcohol intake: current Alcohol intake frequency: a few times a week Alcohol type: wine Patient Tobacco Use Status: Never used Tobacco e-Cigarette/Vaping Use: Never Used Advance Directives: Yes Advance Directives on File: Yes Advance Directives Date on File: 05/24/23 service: No Current occupational status: retired 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 Current occupational exposures/hazards: No Cognitive needs: No Hearing needs: No Vision needs: Yes Physical Exam 2 Vital Signs: Vital Signs: Last Vital Signs Temp 97.1 F 10/20/24 17:41 Pulse 65 10/20/24 17:41 Resp 16 10/20/24 17:41 BP 151/75 H 10/20/24 17:41 Pulse Ox 95 10/20/24 17:41 O2 Del Method Room Air 10/20/24 17:41 BMI result Body Mass Index 32.1 Const: General: cooperative, healthy appearing, comfortable, no acute distress, well developed and alert Orientation/consciousness: patient oriented x3 HEENT: Head: Yes normal to inspection, Yes No palpable skull fracture present, Yes normocephalic and Yes atraumatic Eyes: General: appearance normal, both eyes and all related structures Neck: Neck: Yes normal visual inspection, Yes full ROM, Yes no lymphadenopathy, Yes no meningeal signs, Yes trachea midline, Yes supple, No anterior neck swelling and No tender Chest: Chest palpation & inspection: normal inspection of the chest and normal palpation of entire chest wall Resp: Effort & Inspection: normal respiratory effort and able to speak in complete sentences Auscultation: clear to auscultation bilaterally Cardio: Jugular venous distension: no JVD Heart sounds: S1 normal heart sound present and S2 normal heart sound present GI: Inspection: Yes normal to inspection Palpation (GI): Soft to palpation, not firm, nontender, no guarding and not rigid : General: Yes no CVA tenderness Back/Spine/Pelvis: Back: no CVA tenderness and No back tenderness Skin: General skin exam: no rashes or lesions noted, elasticity normal and turgor normal Neuro: General: patient oriented x3, gait normal, tone normal, moves all extremities, Normal light touch and pain sensation, no meningeal signs, no focal motor deficits and CN's II-XI intact bilaterally Extrem: General: Yes normal to inspection, Yes full ROM and Yes capillary refill normal Hand/finger images: 1. tenderness on palpation. negative for erythema, swelling, ecchymosis, crepitus, red streaks, or defmoritites. rest of extremity is normal. motor, neuro, and vascular exam is intact. Psych: Appearance: grossly normal, well kempt and not disheveled Course Course Course Narrative: RME: 69-year-old female presents to ED for right hand wrist pain for the past couple of days. Patient states she was dealing and due to her bilateral knee replacement while bending down she pressed her right hand hard onto the floor denies falling and since then has had pain and heard a crunching. Patient went to primary care and they put her in no velcro wrist splint but no x-ray. Patient came to the ED to be evaluated. Positive for wrist tenderness on palpation. Negative for any deformity, crepitus, ecchymosis, swelling or erythema. X-ray ordered Medical Decision Making Medical Decision Making MDM Narrative: 69-year-old female with right wrist pain status post straining injury of wrist last week. Patient denies any redness profuse swelling, chest pain, shortness of breath, recent long travel recent surgery or any history of blood clots. Physical exam negative for signs of DVT, arterial occlusion, compartment syndrome, necrotizing fasciitis, osteomyelitis and other life-threatening etiology. Patient informed to continue using her velcro wrist splint. X-ray negative for fractures. Patient informed she may have injured a tendon and will need physical therapy for primary care provider and MRI. Patient explained worrisome signs and informed to return to the ED immediately. Not suspecting gout, septic joint, DVT Differential Diagnosis Differential Diagnoses: The differential diagnosis associated with the presentation includes (Wrist sprain, dislocation, fracture) Admission/Observation Consideration of admission/observation: Escalation of care including admission/observation considered Independent Interpretation I performed an independent interpretation of an: Plain X-Ray Radiology Impression Discussion of test interpretation with radiology: I have reviewed the radiologist's reading. Independent Historian Clinical information obtained from an independent historian. History obtained from or confirmed by: Other (Patient is) Prescription Management I considered prescription management with: Pain Medication Discharge Plan Discharge Clinical Impression: Right wrist sprain Patient Disposition: Home, Self-Care Instructions: How to Use an Elastic Bandage (ED), Wrist Sprain (ED) Additional Instructions: Recommend follow up with your primary care provider. You will need physical therapy and possible MRI if no improvement. Return to the ED immediately for any swelling, redness, bluish black discoloration, hotness, coldness, fever, chills, red rash, stiffness, or any other concerning symptoms. Ordering Physician: Mario Garrett Date of Service: 10/20/24 Procedure(s): XR wrist RT min 3V Accession Number(s): [id number] cc: Mario Garrett; Bonny Bueno MD~ CLINICAL HISTORY: pain. fracture? 4 view right wrist Comparison: None provided Findings: Bones intact. No dislocations. Mild arthritic change. No radiopaque foreign body. IMPRESSION: 1. No acute findings This document has been electronically signed by: Halina Auguste MD on 10/20/2024 17:04:23 Ordering Physician: Mario Garrett Date of Service: 10/20/24 Procedure(s): XR hand RT min 3V Accession Number(s): [id number] cc: Mario Garrett; Bonny Bueno MD~ CLINICAL HISTORY: pain. 3 view right hand Comparison: None provided Findings: Bones intact. No dislocations. Mild arthritic change. No erosions. No radiopaque foreign body. IMPRESSION: 1. No acute findings This document has been electronically signed by: Halina Auguste MD on 10/20/2024 17:06:13 Prescriptions: No Action albuterol sulfate 90 mcg/actuation HFA aerosol inhaler 2 inh inhalation Q6-8H PRN (Reason: shortness of breath or wheezing) Qty: 8.5 2RF Repatha SureClick 140 mg/mL pen injector 140 mg SUBCUT Q2W Qty: 2 5RF fluticasone furoate-vilanterol [Breo Ellipta] 100-25 mcg/dose blister with device 1 inh inhalation DAILY Qty: 60 3RF Eliquis 5 mg tablet 5 mg PO BID Qty: 180 3RF buspirone 5 mg tablet 5 mg PO BID Qty: 180 3RF ezetimibe 10 mg tablet 10 mg PO DAILY Qty: 90 3RF cholecalciferol (vitamin D3) [Vitamin D3] 50 mcg (2,000 unit) Capsule 50 mcg PO DAILY Multivitamin 50 Plus Tablet 1 tab PO DAILY acetaminophen [Acetaminophen Extra Strength] 500 mg tablet 1,000 mg PO DAILY PRN (Reason: Pain) hydroxyzine HCl 25 mg tablet 12.5 - 25 mg PO DAILY PRN (Reason: Anxiety) fluoxetine 20 mg capsule 20 mg PO DAILY lamotrigine 100 mg tablet 250 mg PO BEDTIME latanoprost 0.005 % drops 1 drp ophthalmic (eye) BEDTIME trazodone 100 mg tablet 100 - 200 mg PO BEDTIME docusate sodium 100 mg capsule 100 mg PO BEDTIME Qty: 90 3RF ascorbic acid (vitamin C) 500 mg capsule 1,000 mg PO DAILY bisacodyl [Dulcolax (bisacodyl)] 5 mg tablet,delayed release (DR/EC) 10 mg PO BEDTIME Qty: 180 4RF polyethylene glycol 3350 [Miralax] 17 gram/dose powder 238 g PO ONCE Qty: 238 0RF Rx Instructions: As directed by gastroenterology department at [facility] metoprolol tartrate 50 mg tablet 50 mg PO BID Qty: 180 3RF meloxicam 15 mg tablet 15 mg PO DAILY Qty: 10 0RF Referrals: [facility] [Provider Group, Orthopedics] - 3 days Referral Note: Wrist sprain may need MRI physical therapy Clinical Impression: Right wrist sprain Bonny Bueno MD [Primary Care Provider, Internal Medicine] - 2 days Referral Note: Wrist sprain. We will need physical therapy and MRI if no improvement Clinical Impression: Right wrist sprain Stand Alone Forms: Work/School Release Interventions: ED Discharge Assessment Last Done: 10/20/24 17:41 Discharge Date/Time: 10/20/24 17:42 Print Language: Malaysian
[2024-10-20 17:41] VITALS: BP 151/75; PULSE 65; RESP 16; TEMP 36.2; O2SAT 95
== END 2024-10-20 17:42 | disposition home or self-care (01) ==
LOC: HO.ED 17:40
PROVIDERS: Emergency Provider Emergency Medicine Emergency Medical Services; PCP Internal Medicine
DX: S63.501A Unspecified sprain of right wrist, initial encounter (principal); M79.641 Pain in right hand; X50.9XXA Other and unspecified overexertion or strenuous movements or postures, initial encounter; Y93.9 Activity, unspecified; Y92.9 Unspecified place or not applicable; Y99.8 Other external cause status
CPT/HCPCS: 73110; 73130; 99282; 99283

== ENCOUNTER → 2024-10-20 15:59 | Outpatient (BNV) | payer MEDICARE, SELFPAY | PROVIDERS: Emergency Provider Emergency Medicine Emergency Medical Services; PCP Internal Medicine; Visit Provider Radiology Diagnostic Radiology | DX: M25.531 Pain in right wrist (principal); M79.641 Pain in right hand | CPT/HCPCS: 73110; 73130 ==

== ENCOUNTER → 2024-11-07 23:59 | Outpatient (BNV) | payer MEDICARE, SELFPAY ==
--- NOTE | 2024-11-24 13:22 | A.OFFVIS_ITS ---
Intake Visit Reasons: Remote ILR check- medtronic Allergies oxycodone (From PERCODAN) Allergy (Intermediate, Verified 10/20/24 15:56) HIVES rosuvastatin (From Crestor) Adverse Reaction (Intermediate, Verified 10/20/24 15:56) body aches Hydrocodone-Acetaminophen Adverse Reaction (Unknown, Uncoded 08/09/24 08:07) nausea and vomiting PFSH Medical History (Updated 10/21/24 @ 00:01 by Radha Vicente) Palpitations Hypertension Asthma Anxiety Chronic low back pain On anticoagulant therapy On beta francisco at home PAF (paroxysmal atrial fibrillation) Surgical History H/O cardiac radiofrequency ablation H/O colonoscopy History of evacuation of hematoma History of bowel resection History of knee surgery Family History Father Myocardial infarction CVD (cardiovascular disease) Mother Mental health disorder Sister Mental health disorder Social History Household Members: Spouse, Family and Children 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:: , 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, 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, 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 Are you a primary child care associate to a significant other at home: Yes Do you presently have visiting nurse or other home services: No Alcohol intake: current Alcohol intake frequency: a few times a week Alcohol type: wine Patient Tobacco Use Status: Never used Tobacco e-Cigarette/Vaping Use: Never Used Advance Directives: Yes Advance Directives on File: Yes Advance Directives Date on File: 05/24/23 service: No Current occupational status: retired 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 74581-Nitysf Cardiac Interrogation, subcut cardiac rhythm monitor Procedure code (CPT) selection complete Assessment & Plan Assessment & Plan (1) Implantable loop recorder present: Code(s): Z95.818 - Presence of other cardiac implants and grafts Category: Medical (2) PAF (paroxysmal atrial fibrillation): Code(s): I48.0 - Paroxysmal atrial fibrillation Category: Medical Plan x Coding Level of Care Code Procedure Only Diagnoses Implantable loop recorder present Z95.818 PAF (paroxysmal atrial fibrillation) I48.0 CPT Codes Cardiac Device Check - Cardiac Device 16: [id number]-[id number] Cardiac Interrogation, subcut cardiac rhythm monitor ([id number])
== END ==
PROVIDERS: PCP Internal Medicine; Visit Provider Internal Medicine
DX: I48.0 Paroxysmal atrial fibrillation (principal); Z95.818 Presence of other cardiac implants and grafts
CPT/HCPCS: 93298

== ENCOUNTER 2024-12-04 11:50 | Day surgery (SDC) | payer MEDICARE, SELFPAY ==
--- OUTSIDE RECORDS SUMMARY | 2024-05-09 05:30 | XMS_ITS ---
Author Organization [facility] Address [address] [place] [address] Care Team Providers Care Tuft Machine Operator Name Role Phone Myles SANDERSON, Bonny Primary Care Provider Laura Quintana [phone] Encounters Encounter Location Date Provider Diagnosis [facility] [address] [place] [address] 05/09/2024 Laura Wheeler Plan Of Treatment No Information Progress Notes * TRIPChetanileDOB: 7 (69 yo F)Acc No.[id number]:05/09/2024 Progress Notes Patient: Rowena NEAL Provider: Gary Wheeler DPM :1955 A ge:69 Y S ex:Female Date:05/09/2024 Address:[address] [place], [place] [id number] Pcp:Bonny Bueno MD Subjective: * Chief Complaints: * * Medical History: Objective: * Vitals: Assessment: Plan: * Treatment: * Images: * The named appointment provid er may or may not be the originator of this progress note, and it is not deemed complete until electronically signed by the appointment provider. Sign off status: Pending * Provider: Gary Wheeler DPM Date: 0 05/09/2024 Generated for Printi ng/Faxing/eTransmitting on: 0 11/27/2024 02:54 PM EDT
--- OUTSIDE RECORDS SUMMARY | 2024-11-27 14:54 | XMS_ITS | Clinical Summary ---
Author Organization [facility] Address [address] [place] [address] Care Team Providers Care Medical Physics Professor Name Role Phone Tashia Rice MD Primary Care Provider [phone] Surgical History Surgery Date Site/Laterality Comments OTHER SURGICAL HISTORY PROCEDURE: ARTHROSCOPY PROCEDURE NEC; COMMENT: knee ENDOMETRIAL ABLATION 05/03/2006 PROCEDURE: MO ENDOMETRIAL ABLTJ THERMAL W/O HYSTEROSCOPIC GUID; COMMENT: Novasure COLONOSCOPY 2001 PROCEDURE: MO COLONOSCOPY FLX DX W/COLLJ SPEC WHEN PFRMD; COMMENT: diverticulosis COLONOSCOPY 01/07/08 PROCEDURE: MO COLONOSCOPY STOMA DX INCLUDING COLLJ SPEC SPX; COMMENT: Up to cecum, mild sigmoid diverticulosis, tortuous sigmoid colon, otherwise normal colon exam OTHER SURGICAL HISTORY 02/2011 PROCEDURE: MO COLECTOMY PARTIAL W/ANASTOMOSIS; COMMENT: diverticulitis TOTAL KNEE ARTHROPLASTY 2017 Bilateral PROCEDURE: MO ARTHRP KNE CONDYLE&PLATU MEDIAL&LAT COMPARTMENTS COLONOSCOPY 08/29/2018 [...] 03/18/2005 DX:Depressiv e disorder; COMMENT: Admitted to [facility] status post suicide attempt/Vicodin overdose 01/20/14 [...] 03/31/2022 03/31/19, 04/03/2019, 03/28/2019, Additional history exists Depression Screening 03/27/2024 COVID-19 Vaccine ( season) 2024 02/16/2021, 07/10/2020, 06/18/2020 Influenza Vaccine (#1) 2024 , 01/09/2020, 12/25/2018, [...] Documents on File Type Date Recorded Patient Dye Tub Operator Expl anation Health Care Decision (hx) 02/18/2011 AD ADAMS DIRECTIVE Health Care Decision (hx) 02/18/2011 AD ADAMS DIRECTIVE Health Care Decision (hx) 02/18/2011 AD ADAMS DIRECTIVE Health Care Decision (hx) 02/18/2011 AD ADAMS DIRECTIVE Health Care Decision (hx) 02/18/2011 AD ADAMS DIRECTIVE Care Teams Medical Physics Professor Relationship Specialty Start Date End Date Tashia Rice MD [address] [place] [address] PCP - General Internal Medicine 06/10/21
--- OUTSIDE RECORDS SUMMARY | 2024-11-27 14:54 | XMS_ITS | Patient Health Record ---
[facility] Address [address] [place] [address] Care Team Providers Care Relay Telegrapher Name Role Phone Bonny Bueno MD Primary Care Provider Laura Quintana Unavailable [phone] Allergies Allergen (clinical drug ingredient) Drug/Non Drug [...] Referring Provider Last Name Myles Referred Organization [facility] Referred Provider Laura Wheeler Referred Address [address] [facility],[place], [place],[address], Referred Provider Specialty Podiatry Referral Priority Routine [...] Notes Problem Plantar fasciitis of left foot ([id number]) Plantar fasciitis of left foot (M72.2) Active confirmed Vital Signs Blood pressure diastolic 80 mm Hg 04/04/2024 Height 5ft 8inch in 04/04/2024 Blood pressure systolic 120 mm Hg 04/04/2024 Weight 202 lbs 04/04/2024 BMI 30.71 kg/m2 04/04/2024 Encounters Encounter Location Date Provider Diagnosis [facility] [address] 04/04/2024 Laura Wheeler Pain in left foot M79.672 ; Plantar fasciitis of left foot M72.2 ; Calcaneal spur, left foot M77.32 and Bursitis of left foot M77.[address] [address] 02/21/2024 Laura Wheeler [address] [address] 05/01/2024 Laura Wheeler Assessments Encounter Date Diagnosis [...] Insured Coverage Start Date Coverage End Date [facility] [address] [place] [address] [id number] Rowena Page Self - patient is the insured Medical (General) History Medical History History ICD Code Anxiety asthma CAD (Cholesterol) Cataracts covid-19 Depression Diverticulosis Glaucoma Heart disease High Blood Pressure Chicken pox Joint implants/screws Surgical History Surgery Date(Month/Year) cardiac ablation bilateral knee replacement bowel resection
--- NOTE | 2024-12-03 09:19 | HO.ANESPROP2 ---
Documented by User: Laura Cardenas NP 12/03/24 09:26 HPI - Anesthesia Eval Consult details Narrative: 69yo F for Colonoscopy Cardiac optimized. Follows [facility] [place] [facility] for PAF (DERIK freeman 2013), ASCVD (nonobstructive CAD by CTA) ILR in situ PMFSH Active Problems Active Problems: All Active Problems Right hand tendonitis (Acute) Anxiety (Acute) Implantable loop recorder present (Acute) Syncope and collapse (Acute) Fall (Acute) Concussion (Acute) Syncope (Acute) Otitis media of right ear (Acute) Lower respiratory infection (e.g., bronchitis, pneumonia, pneumonitis, pulmonitis) (Acute) Asthma (Acute) Plantar fasciitis of right foot (Acute) URI (upper respiratory infection) (Acute) Foot pain (Acute) Hospital discharge follow-up (Acute) On anticoagulant therapy (Acute) Palpitations (Acute) Post-menopausal atrophic vaginitis (Acute) Chronic cystitis (Acute) Other and unspecified hyperlipidemia (Acute) Encounter for monitoring anti-arrhythmic therapy (Acute) Abnormal EKG (Acute) Atherosclerotic cardiovascular disease (Acute) Anxiety and depression (Acute) S/P colon resection (Acute) Annual physical exam (Acute) Hyperlipidemia (Acute) Vitamin D deficiency (Acute) Sinusitis (Acute) Elevated LFTs (Acute) Low back pain (Acute) Postmenopausal (Acute) Vitamin B 12 deficiency (Acute) Current use of anticoagulant therapy (Acute) Dysuria (Acute) Microscopic hematuria (Acute) Stress incontinence (Acute) Gross hematuria (Acute) Lesion of bladder (Acute) PAF (paroxysmal atrial fibrillation) (Acute) Past Medical History Medical History Palpitations Hypertension Asthma Anxiety Chronic low back pain On anticoagulant therapy On beta francisco at home PAF (paroxysmal atrial fibrillation) Family History Family History Father Myocardial infarction CVD (cardiovascular disease) Mother Mental health disorder Sister Mental health disorder Family history of problems with anesthesia: No Surgical History Surgical History H/O cardiac radiofrequency ablation H/O colonoscopy History of evacuation of hematoma History of bowel resection History of knee surgery History of Problems with Anesthesia: No Social History Social History Household Members: Spouse, Family and Children 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:: , 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, 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, 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 Are you a primary managed care nurse to a significant other at home: Yes Do you presently have visiting nurse or other home services: No Alcohol intake: current Alcohol intake frequency: a few times a week Alcohol type: wine Patient Tobacco Use Status: Never used Tobacco e-Cigarette/Vaping Use: Never Used Use of substances other than those prescribed or required for medical reasons: No Advance Directives: No Advance Directives Information Provided: Yes Advance Directives Date on File: 05/24/23 service: No Current occupational status: retired 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 Current occupational exposures/hazards: No Cognitive needs: No Hearing needs: No Vision needs: Yes Meds Allergies Allergy/AdvReac Type Severity Reaction Status Date / Time oxycodone (From PERCODAN) Allergy Intermediate HIVES Verified 10/20/24 15:56 rosuvastatin (From Crestor) AdvReac Intermediate body aches Verified 10/20/24 15:56 Hydrocodone-Acetaminophen AdvReac Unknown nausea and Uncoded 08/09/24 08:07 vomiting Home Medications ?Medication ?Instructions ?Recorded ?Confirmed ?Last Taken ?Type lamotrigine 100 mg tablet 250 mg PO BEDTIME 10/01/20 10/16/24 05/07/24 History latanoprost 0.005 % eye drops 1 drp ophthalmic (eye) BEDTIME 10/01/20 10/16/24 05/07/24 History trazodone 100 mg tablet 100 - 200 mg PO BEDTIME Sleep 10/01/20 10/16/24 05/07/24 History fluoxetine 20 mg capsule 20 mg PO DAILY 12/01/21 10/16/24 05/07/24 History ascorbic acid (vitamin C) 500 mg 1,000 mg PO DAILY 06/02/22 10/16/24 05/07/24 History capsule cholecalciferol (vitamin D3) 50 50 mcg PO DAILY 06/08/22 10/16/24 05/07/24 History mcg (2,000 unit) capsule (Vitamin D3) [id number]-[id number] 1 tab PO DAILY 06/08/22 10/16/24 05/07/24 History tablet (Multivitamin 50 Plus tablet) acetaminophen 500 mg tablet 1,000 mg PO DAILY PRN Pain 09/12/23 10/16/24 05/07/24 History (Acetaminophen Extra Strength) hydroxyzine HCl 25 mg tablet 12.5 - 25 mg PO DAILY PRN Anxiety 05/08/24 10/16/24 05/07/24 History Exam Pertinent Lab Results Pertinent Lab Results: Laboratory Tests 10/15/24 07:38 WBC 4.8 Hgb 14.5 Hct 43.0 Plt Count 182 Sodium 140 Potassium 4.4 Chloride 103 Carbon Dioxide 31 H BUN 11 Creatinine 0.69 Narrative Narrative: Per 09/2024 cardiac office visit: coronary CTA shows nonobstructive disease in the LAD, diagonal, RCA. Myocardial perfusion imaging study from 2019 showed normal perfusion. Repeat perfusion imaging from [facility] 07/2023 is unremarkable. Echocardiogram from [facility] 07/2023 with LVEF of 55-60%, no wall motion abnormalities. Otherwise unremarkable. Assessment and Plan Assessment Anesthesia Assessment: Chart Reviewed Final Anesthetic Review Family History of Problems with Anesthesia: No History of Problems with Anesthesia: No Documented by User: Tino Bowman MD 12/04/24 12:17 [facility] Past Medical History Medical History Palpitations Hypertension Asthma Anxiety Chronic low back pain On anticoagulant therapy On beta francisco at home PAF (paroxysmal atrial fibrillation) Cognitive capacity: normal Functional capacity: independent ambulation Family History Family History Father Myocardial infarction CVD (cardiovascular disease) Mother Mental health disorder Sister Mental health disorder Surgical History Surgical History H/O cardiac radiofrequency ablation H/O colonoscopy History of evacuation of hematoma History of bowel resection History of knee surgery Social History Social History Household Members: Spouse, Family and Children 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:: , 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, 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, 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 Are you a primary managed care nurse to a significant other at home: Yes Do you presently have visiting nurse or other home services: No Alcohol intake: current Alcohol intake frequency: a few times a week Alcohol type: wine Patient Tobacco Use Status: Never used Tobacco e-Cigarette/Vaping Use: Never Used Use of substances other than those prescribed or required for medical reasons: No Advance Directives: No Advance Directives Information Provided: Yes Advance Directives Date on File: 05/24/23 service: No Current occupational status: retired 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 Current occupational exposures/hazards: No Cognitive needs: No Hearing needs: No Vision needs: Yes Meds Allergies Allergy/AdvReac Type Severity Reaction Status Date / Time oxycodone (From PERCODAN) Allergy Intermediate HIVES Verified 10/20/24 15:56 rosuvastatin (From Crestor) AdvReac Intermediate body aches Verified 10/20/24 15:56 Hydrocodone-Acetaminophen AdvReac Unknown nausea and Uncoded 08/09/24 08:07 vomiting Home Medications ?Medication ?Instructions ?Recorded ?Confirmed ?Last Taken ?Type lamotrigine 100 mg tablet 250 mg PO BEDTIME 10/01/20 10/16/24 05/07/24 History latanoprost 0.005 % eye drops 1 drp ophthalmic (eye) BEDTIME 10/01/20 10/16/24 05/07/24 History trazodone 100 mg tablet 100 - 200 mg PO BEDTIME Sleep 10/01/20 10/16/24 05/07/24 History fluoxetine 20 mg capsule 20 mg PO DAILY 12/01/21 10/16/24 05/07/24 History ascorbic acid (vitamin C) 500 mg 1,000 mg PO DAILY 06/02/22 10/16/24 05/07/24 History capsule cholecalciferol (vitamin D3) 50 50 mcg PO DAILY 06/08/22 10/16/24 05/07/24 History mcg (2,000 unit) capsule (Vitamin D3) [id number]-xumolsvo-iijaxp 1 tab PO DAILY 06/08/22 10/16/24 05/07/24 History tablet (Multivitamin 50 Plus tablet) acetaminophen 500 mg tablet 1,000 mg PO DAILY PRN Pain 09/12/23 10/16/24 05/07/24 History (Acetaminophen Extra Strength) hydroxyzine HCl 25 mg tablet 12.5 - 25 mg PO DAILY PRN Anxiety 05/08/24 10/16/24 05/07/24 History Exam Exam Date and Time: 12/04/2024 Airway TM Dist: >3cm Neck ROM: Full Denture: Upper Partial: Upper Loose/Missing/Broken Teeth: No (rrr) Lungs: cta Other: normal Assessment and Plan Assessment Anesthesia Assessment: Anesthesia Plan Discussed and PAT Visit Final Anesthetic Review ASA Class: II Final Preanesthetic Review: No Changes in Pt Med Stat, Meds/Allgs Chart Reviewed and Anes Risks/Benef Reviewed Patient Risk: Low Procedure Risk: Low Anesthetic Plan Anesthetic Plan: GA and MAC: Disposition: Standard PACU
--- NOTE | 2024-12-04 12:04 | P.HPSUR_ITS ---
Pre-Procedural Eval Section A - 24 Hr Update-Section A only Date of Service: 12/04/24 Section B - Complete if H&P > 30 days Chief Complaint: screening Relevant Family History (Specify if Yes): No Relevant Social History: None Present Medications: see Short Stay Collaborative assessment Medical History: Significant History (Palpitations Hypertension Asthma Anxiety Chronic low back pain On anticoagulant therapy On beta francisco at home PAF (paroxysmal atrial fibrillation)) History of Previous Operations: Relevant previous surgery/procedure and date(s) (H/O cardiac radiofrequency ablation H/O colonoscopy History of evacuation of hematoma History of bowel resection History of knee surgery) Allergies: Allergies Allergy/AdvReac Type Severity Reaction Status Date / Time oxycodone (From PERCODAN) Allergy Intermediate HIVES Verified 10/20/24 15:56 rosuvastatin (From Crestor) AdvReac Intermediate body aches Verified 10/20/24 15:56 Hydrocodone-Acetaminophen AdvReac Unknown nausea and Uncoded 08/09/24 08:07 vomiting Review of Systems Sugical H&P ROS: Negative: Constitution, Cardiovascular, Respiratory, Neurological, Psychiatric, Hem-Onc, Allergic/Immunologic, Gastrointestinal, Genitourinary, Musculoskeletal, Integumentary, Endocrine and Eyes/Ear s/Nose/Throat Exam Surgical H&P Exam: Normal: HEENT, Normal: Heart, Normal: Lungs, Normal: Extremities, Normal: Abdomen, Normal: Skin and Normal: Neurological Plan Diagnosis/Plan: Unchanged I have reviewed the history and physical and performed a pertinent physical examination on my patient. No changes have occurred unless specified. Time Spent With Patient Time: Total time managing care of this patient today ____ minutes.
[2024-12-04 12:08] VITALS: BP 147/78; PULSE 60; RESP 16; TEMP 36.1; O2SAT 98
[2024-12-04] MEDS: Lactated Ringers 1,000 ML 100 ML IVCONT (12:11)
--- NOTE | 2024-12-04 12:40 | HO.OPN-COLON ---
Colonoscopy Operative Note Operative Note Date of Service: 12/04/24 Narrative: Operative Information Procedure Description: Colonoscopy Indication: screening Anesthesia: MAC COLONOSCOPY Instrument: Olympus variable stiffness pediatric scope 190L Colonoscopy Monitoring: Vital signs and clinical assessment, continuous EKG monitoring, Pulse oximetry, Carbon Dioxide monitoring and blood pressure monitoring were done throughout the procedure. Colon withdrawal time was 10 minutes. Procedure: The patient was placed in the left lateral decubitis position and pre-procedure medications were administered. After a digital rectal examination of the ano-rectum, the video colonoscope was inserted into the rectum and advanced through the colon to the cecum/TI. The colonoscope was slowly withdrawn in a retrograde panoramic fashion and the colon mucosa was carefully examined including a retroflexed view of the rectum. Findings and interventions are described below. Procedure Difficulty: moderate Findings: Terminal Ileum-not intubated Cecum:normal Ascending Colon: moderate diverticulosis Transverse Colon -normal Descending Colon:normal Sigmoid Colon: anastomosis noted, moderate diverticulosis Rectum: Retroflexion with small internal hemorrhoids seen, grade I Anorectum - normal Intervention: none Colon preparation: [place] Bowel Preparation Scale Right colon; 1-2 Transverse colon: 2 Left colon; 2 (0 = Unprepared colon segment with mucosa not seen due to solid stool that cannot be cleared. 1 = Portion of mucosa of the colon segment seen, but other areas of the colon segment not well seen due to staining, residual stool and/or opaque liquid. 2 = Minor amount of residual staining, small fragments of stool and/or opaque liquid, but mucosa of colon segment seen well. 3 = Entire mucosa of colon segment seen well with no residual staining, small fragments of stool or opaque liquid) Impression and Post Procedure Diagnosis: diverticulosis internal hemorrhoids Plan: High fiber diet leaflet Avoid straining at stool, epsom salts and sitz bath, anusol supps or cream Repeat Colonoscopy in 1-2 years or earlier if clinically indicated-- next time, 2 d clear liquid diet Above findings were reviewed with the patient and relevant handouts were provided if indicated.
[2024-12-04 12:47] VITALS: BP 110/70; PULSE 80; RESP 16; TEMP 36.1; O2SAT 98
[2024-12-04 13:02] VITALS: BP 123/62; PULSE 61; RESP 16; TEMP 36.2; O2SAT 100
== END 2024-12-04 13:43 | disposition home or self-care (01) ==
PROVIDERS: PCP Internal Medicine; Visit Provider Internal Medicine Gastroenterology
PROC: 0DJD8ZZ Inspection of Lower Intestinal Tract, Via Natural or Artificial Opening Endoscopic (ICD-10-PCS; CPT 45378; principal; 2024-12-04 11:50)
DX: Z12.11 Encounter for screening for malignant neoplasm of colon (principal); K63.89 Other specified diseases of intestine; K57.30 Diverticulosis of large intestine without perforation or abscess without bleeding; K64.0 First degree hemorrhoids; I10 Essential (primary) hypertension; E78.5 Hyperlipidemia, unspecified; I48.0 Paroxysmal atrial fibrillation; J45.909 Unspecified asthma, uncomplicated; Z79.01 Long term (current) use of anticoagulants
CPT/HCPCS: G0121; J2003; J2704; J3010

== ENCOUNTER → 2024-12-04 11:50 | Outpatient (BNV) | payer MEDICARE, SELFPAY | PROVIDERS: PCP Internal Medicine; Visit Provider Internal Medicine Gastroenterology | DX: Z12.11 Encounter for screening for malignant neoplasm of colon (principal); K57.90 Diverticulosis of intestine, part unspecified, without perforation or abscess without bleeding; K64.0 First degree hemorrhoids; Z98.0 Intestinal bypass and anastomosis status | CPT/HCPCS: G0105 ==

== ENCOUNTER → 2024-12-07 23:59 | Outpatient (BNV) | payer MEDICARE, SELFPAY ==
--- NOTE | 2024-12-19 08:48 | A.OFFVIS_ITS ---
Intake Visit Reasons: Remote ILR check- [employer] Allergies oxycodone (From PERCODAN) Allergy (Intermediate, Verified 10/20/24 15:56) HIVES rosuvastatin (From Crestor) Adverse Reaction (Intermediate, Verified 10/20/24 15:56) body aches Hydrocodone-Acetaminophen Adverse Reaction (Unknown, Uncoded 08/09/24 08:07) nausea and vomiting PFSH Medical History Palpitations Hypertension Asthma Anxiety Chronic low back pain On anticoagulant therapy On beta francisco at home PAF (paroxysmal atrial fibrillation) Surgical History H/O cardiac radiofrequency ablation H/O colonoscopy History of evacuation of hematoma History of bowel resection History of knee surgery Family History Father Myocardial infarction CVD (cardiovascular disease) Mother Mental health disorder Sister Mental health disorder Social History Household Members: Spouse, Family and Children 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:: , 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, 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, 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 Are you 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 child 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 to a significant other at home: Yes Do you presently have visiting nurse or other home services: No Alcohol intake: current Alcohol intake frequency: a few times a week Alcohol type: wine Patient Tobacco Use Status: Never used Tobacco e-Cigarette/Vaping Use: Never Used Advance Directives Date on File: 05/24/23 service: No Current occupational status: retired 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 [id number] Cardiac Interrogation, subcut cardiac rhythm monitor Procedure code (CPT) selection complete Assessment & Plan Assessment & Plan (1) Implantable loop recorder present: Code(s): Z95.818 - Presence of other cardiac implants and grafts Category: Medical (2) PAF (paroxysmal atrial fibrillation): Code(s): I48.0 - Paroxysmal atrial fibrillation Category: Medical (3) Syncope and collapse: Code(s): R55 - Syncope and collapse Category: Medical Plan x Coding Level of Care Code Procedure Only Diagnoses Implantable loop recorder present Z95.818 PAF (paroxysmal atrial fibrillation) I48.0 Syncope and collapse R55 CPT Codes Cardiac Device Check - Cardiac Device 16: [id number] Cardiac Interrogation, subcut cardiac rhythm monitor ([id number])
== END ==
PROVIDERS: PCP Internal Medicine; Visit Provider Internal Medicine
DX: I48.0 Paroxysmal atrial fibrillation (principal); Z95.818 Presence of other cardiac implants and grafts; R55 Syncope and collapse
CPT/HCPCS: 93298

== ENCOUNTER → 2025-01-06 23:59 | Outpatient (BNV) | payer MEDICARE, SELFPAY ==
--- NOTE | 2025-01-09 15:57 | A.OFFVIS_ITS ---
Intake Visit Reasons: Remote ILR check- [employer] Allergies oxycodone (From PERCODAN) Allergy (Intermediate, Verified 10/20/24 15:56) HIVES rosuvastatin (From Crestor) Adverse Reaction (Intermediate, Verified 10/20/24 15:56) body aches Hydrocodone-Acetaminophen Adverse Reaction (Unknown, Uncoded 08/09/24 08:07) nausea and vomiting PFSH Medical History Palpitations Hypertension Asthma Anxiety Chronic low back pain On anticoagulant therapy On beta francisco at home PAF (paroxysmal atrial fibrillation) Surgical History H/O cardiac radiofrequency ablation H/O colonoscopy History of evacuation of hematoma History of bowel resection History of knee surgery Family History Father Myocardial infarction CVD (cardiovascular disease) Mother Mental health disorder Sister Mental health disorder Social History Household Members: Spouse, Family and Children 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:: , 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, 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, 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 Are you a 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 manager critical care to a significant other at home: Yes Do you presently have visiting nurse or other home services: No Alcohol intake: current Alcohol intake frequency: a few times a week Alcohol type: wine Patient Tobacco Use Status: Never used Tobacco e-Cigarette/Vaping Use: Never Used Advance Directives Date on File: 05/24/23 service: No Current occupational status: retired 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 [id number] Cardiac Interrogation, subcut cardiac rhythm monitor Procedure code (CPT) selection complete Assessment & Plan Assessment & Plan (1) Implantable loop recorder present: Code(s): Z95.818 - Presence of other cardiac implants and grafts Category: Medical (2) PAF (paroxysmal atrial fibrillation): Code(s): I48.0 - Paroxysmal atrial fibrillation Category: Medical Plan x Coding Level of Care Code Procedure Only Diagnoses Implantable loop recorder present Z95.818 PAF (paroxysmal atrial fibrillation) I48.0 CPT Codes Cardiac Device Check - Cardiac Device 16: [id number] Cardiac Interrogation, subcut cardiac rhythm monitor ([id number])
== END ==
PROVIDERS: PCP Internal Medicine; Visit Provider Internal Medicine
DX: I48.0 Paroxysmal atrial fibrillation (principal); Z95.818 Presence of other cardiac implants and grafts
CPT/HCPCS: 93298

== ENCOUNTER 2025-03-06 08:17 | Outpatient (AMB) | payer MEDICARE, SELFPAY ==
[2025-03-06 08:27] VITALS: BP 126/76; PULSE 65; RESP 17; TEMP 36.7; O2SAT 94; BMI 31.6
--- NOTE | 2025-03-06 08:27 | A.OFFPC_ITS ---
Vital Signs 03/06/25 08:27 Height 5 ft 8 in Weight 208 lb BMI 31.6 BP 126/76 Blood Pressure Location Lt brachial Position Sitting Respiration 17 Pulse 65 Pulse Source Pulse Oximeter Temp 98.0 F Temp Source Oral Pulse Oximetry (%) 94 Oxygen Delivery Method Room Air Intake Visit Reasons: Annual PE Intake Note: Pt is here today for PE. Allergies oxycodone (From PERCODAN) Allergy (Intermediate, Verified 03/06/25 08:29) HIVES rosuvastatin (From Crestor) Adverse Reaction (Intermediate, Verified 03/06/25 08:29) body aches Hydrocodone-Acetaminophen Adverse Reaction (Unknown, Uncoded 03/06/25 08:29) nausea and vomiting Medication List - Last Reconciled 03/06/25 by Bonny Bueno MD acetaminophen (Acetaminophen Extra Strength) 1,000 mg PO DAILY PRN albuterol sulfate 90 mcg/actuation 2 inhalations inhalation Q6-8H PRN apixaban (Eliquis) 5 mg PO BID ascorbic acid (vitamin C) 1,000 mg PO DAILY bisacodyl (Dulcolax (bisacodyl)) 10 mg (2 x 5 mg) PO BEDTIME Breo Ellipta 100-25 mcg/dose (fluticasone furoate-vilanterol) 1 ea inhalation DAILY NS buspirone 5 mg PO BID cholecalciferol (vitamin D3) (Vitamin D3) 50 mcg PO DAILY docusate sodium 100 mg PO BEDTIME evolocumab (Repatha SureClick) 140 mg subcut Q2W 28 days ezetimibe 10 mg PO DAILY fluoxetine 20 mg PO DAILY hydroxyzine HCl 12.5 - 25 mg PO DAILY PRN lamotrigine 250 mg PO BEDTIME latanoprost 0.005% 1 drp ophthalmic (eye) BEDTIME meloxicam 15 mg PO DAILY metoprolol tartrate 50 mg PO BID [id number]-psbdne (Multivitamin 50 Plus tablet) 1 tab PO DAILY polyethylene glycol 3350 (Miralax) 238 grams PO ONCE trazodone 100 - 200 mg PO BEDTIME Tobacco use date assessed: 03/06/25 Fall risk assessment: No Falls in past year Last assessed Fall Risk: 03/06/25 Dental Screening Dental Screen Date: 04/17/24 HPI Annual PE HPI Details Pt presents for PE. [facility] Medical History (Updated 03/06/25 @ 09:51 by Bonny Bueno MD) Hx of screening mammography Hyperlipidemia Anxiety and depression Palpitations Hypertension Asthma Anxiety Chronic low back pain PAF (paroxysmal atrial fibrillation) Surgical History (Updated 03/06/25 @ 09:47 by Bonny Bueno MD) H/O cardiac radiofrequency ablation H/O colonoscopy History of evacuation of hematoma History of bowel resection History of knee surgery Family History Father Myocardial infarction CVD (cardiovascular disease) Mother Mental health disorder Sister Mental health disorder Social History Household Members: Spouse, Family and Children 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:: , 2 children, 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, 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 Are you a primary care navigator to a significant other at home: Yes Do you presently have visiting nurse or other home services: No Alcohol intake: current Alcohol intake frequency: a few times a week Alcohol type: wine Patient Tobacco Use Status: Never used Tobacco e-Cigarette/Vaping Use: Never Used Advance Directives Date on File: 05/24/23 service: No Current occupational status: retired 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 [employer] Current occupational exposures/hazards: No Cognitive needs: No Hearing needs: No Vision needs: Yes Questionnaire Thrive Questionnaire Date Thrive assessed: 04/10/24 I am a: Patient What is your living situation today?: I have a steady place to live Within the past 12 months, did the food you bought not last and you didn't have the money to get more?: Never true Within the past 12 months, did you worry whether your food would run out before you got money to buy more?: Never true Do you have trouble paying for medicines?: No Do you have trouble getting transportation to medical appointments?: No Do you have trouble paying your heating and electricity bill?: No Do you have trouble taking care of your child, family member or friend?: No Do you have trouble with day-to-day activities such as bathing, preparing meals, shopping, managing finances, etc.?: No Are you currently unemployed and looking for a job?: No Are you interested in more education?: No Please select the resources that you would like help with: None Currently or been in a relationship where the following occur: No concerns reported THRIVE Score: 0 MERLIN-7 AMB Questionnaire MERLIN-7 Date MERLIN - 7 assessed: 11/01/23 Source: Developed by Drs. Trip Miller, Susan Hewitt, Raman Gibson and colleagues, with an educational celio from [employer]. Review of Systems Const All systems reviewed & are unremarkable except as noted in HPI and below Eyes Reports no additional complaints ENT Reports no additional complaints Card Reports no additional complaints Resp Reports no additional complaints GI Reports no additional complaints Reports no additional complaints Musc Reports no additional complaints Physical exam (Primary Care) Vital Signs: Last Vital Signs Temp 98.0 F 03/06/25 08:27 Pulse 65 03/06/25 08:27 Resp 17 03/06/25 08:27 BP 126/76 03/06/25 08:27 Pulse Ox 94 03/06/25 08:27 Oxygen Delivery Method Room Air 03/06/25 08:27 BMI result Body Mass Index 31.6 Tobacco/Smoking Status: Tobacco use Status Tobacco use date assessed 03/06/25 03/06/25 08:32 Patient Tobacco Use Status Never used Tobacco 03/06/25 08:27 e-Cigarette/Vaping Use Never Used 03/06/25 08:27 Thrive Assessment: Date of Thrive Assessment Date Thrive assessed 04/10/24 03/06/25 08:27 Currently or been in a relationship where the following occur: No concerns reported Const General: no acute distress HENMT Head: Yes normal to inspection Ears: TM's normal bilaterally Face and sinus: Yes normal facial exam Throat: Yes posterior oropharynx normal Eyes General: appearance normal, both eyes and all related structures Neck Neck: Yes supple Resp Effort & Inspection: normal respiratory effort Auscultation: clear to auscultation bilaterally Cardio Rhythm: regular rhythm Heart sounds: S1 normal heart sound present and S2 normal heart sound present GI Inspection: Yes normal to inspection Palpation (GI): Soft to palpation Percussion: Yes normal to percussion Auscultation: normal bowel sounds Coding Level of Care Code Est Pt Prev Care >65y(63849) Diagnoses Dysplastic nevi D23.9 Anxiety and depression F41.9; F32.A Annual physical exam Z00.00 Asthma J45.909 PAF (paroxysmal atrial fibrillation) I48.0 Hyperlipidemia E78.5 Assessment & Plan Assessment & Plan (1) Dysplastic nevi: Comment: on face Code(s): D23.9 - Other benign neoplasm of skin, unspecified Category: Medical Plan: refer to dermatology (2) Anxiety and depression: Comment: f/u with psychiatrist, 2 suicidal attempts 2013, Code(s): F41.9 - Anxiety disorder, unspecified; F32.A - Depression, unspecified Category: Medical Plan: cont meds and f/u with psychiatry (3) Annual physical exam: Code(s): Z00.00 - Encounter for general adult medical examination without abnormal findings Category: Medical Plan: Well-balanced diet regular physical activity discussed with the patient. She will schedule mammogram. Patient had negative colonoscopy in November but because of poor prep repeat colonoscopy is recommended in 1-2 years (4) Asthma: Comment: Exercise induced, controlled on Breo Code(s): J45.909 - Unspecified asthma, uncomplicated Category: Medical Plan: Continue Breo (5) PAF (paroxysmal atrial fibrillation): Comment: ON ELIQUIS AND METOPROLOL, implanted loop recorder Code(s): I48.0 - Paroxysmal atrial fibrillation Category: Medical Plan: Continue current medications follow-up with Cardiology (6) Hyperlipidemia: Comment: Atorvastatin was stopped by Cardiology, intolerant to Crestor(myalgia), on Praluent since 08/16 Code(s): E78.5 - Hyperlipidemia, unspecified Category: Medical Plan: LDL not at the goal of less than 100. Change Zetia to Nexlizet, cont Repatha, check lipid profile in 2 months Orders: Orders Lipid Panel 2 Months E53.8 - Deficiency of other specified B group vitamins, E55.9 - Vitamin D deficiency, unspecified, F32.A - Depression, unspecified, F41.9 - Anxiety disorder, unspecified, J45.909 - Unspecified asthma, uncomplicated, Z00.00 - Encounter for general adult medical examination without abnormal findings Complete Blood Count Auto Diff 2 Months E53.8 - Deficiency of other specified B group vitamins, E55.9 - Vitamin D deficiency, unspecified, F32.A - Depression, unspecified, F41.9 - Anxiety disorder, unspecified, J45.909 - Unspecified asthma, uncomplicated, Z00.00 - Encounter for general adult medical examination without abnormal findings TSH reflex Free T4 2 Months E53.8 - Deficiency of other specified B group vitamins, E55.9 - Vitamin D deficiency, unspecified, F32.A - Depression, unspecified, F41.9 - Anxiety disorder, unspecified, J45.909 - Unspecified asthma, uncomplicated, Z00.00 - Encounter for general adult medical examination without abnormal findings Vitamin D 25-OH Total 2 Months E53.8 - Deficiency of other specified B group vitamins, E55.9 - Vitamin D deficiency, unspecified, F32.A - Depression, unspecified, F41.9 - Anxiety disorder, unspecified, J45.909 - Unspecified asthma, uncomplicated, Z00.00 - Encounter for general adult medical examination without abnormal findings Referrals Dermatology Referral D23.9 - Other benign neoplasm of skin, unspecified Medications: New bempedoic acid-ezetimibe 180-10 mg 1 tab PO DAILY 90 tabs 3RF Discontinued ezetimibe Discontinued Reason: Doctor's Order 10 mg PO DAILY 90 tabs 3RF meloxicam Discontinued Reason: Doctor's Order 15 mg PO DAILY 10 tabs 0RF
== END 2025-03-06 11:05 | disposition home or self-care (01) ==
LOC: HO.HMCC 08:18
PROVIDERS: PCP Internal Medicine; Visit Provider Internal Medicine
DX: Z00.00 Encounter for general adult medical examination without abnormal findings (principal); I48.0 Paroxysmal atrial fibrillation; D23.9 Other benign neoplasm of skin, unspecified; F41.9 Anxiety disorder, unspecified; F32.A Depression, unspecified; J45.909 Unspecified asthma, uncomplicated; E78.5 Hyperlipidemia, unspecified

== ENCOUNTER → 2025-03-06 08:17 | Outpatient (BNVA) | payer MEDICARE, SELFPAY | PROVIDERS: PCP Internal Medicine; Visit Provider Internal Medicine | DX: Z00.00 Encounter for general adult medical examination without abnormal findings (principal); D23.9 Other benign neoplasm of skin, unspecified; F41.9 Anxiety disorder, unspecified; F32.A Depression, unspecified; I48.0 Paroxysmal atrial fibrillation; J45.909 Unspecified asthma, uncomplicated; E78.5 Hyperlipidemia, unspecified | CPT/HCPCS: 99397 ==

== ENCOUNTER → 2025-03-17 12:35 | Outpatient (BNV) | payer MEDICARE, SELFPAY | PROVIDERS: PCP Internal Medicine; Visit Provider Internal Medicine | DX: I48.0 Paroxysmal atrial fibrillation (principal) | CPT/HCPCS: 93298 ==